=== PATIENT | female | born 2000 | race Caucasian/White ===

== ENCOUNTER → 2020-02-13 17:45 | Outpatient (CLI) | payer SELFPAY ==
[2020-02-13 08:03] VITALS: BMI 25.7
== END ==
PROVIDERS: Referring Provider Physician Assistant; Visit Provider Physician Assistant
DX: Z20.828 Contact with and (suspected) exposure to other viral communicable diseases (principal)
CPT/HCPCS: 87635; C9803; U0003

== ENCOUNTER 2020-06-25 16:33 | Emergency (ER) | payer OTHER, SELFPAY ==
[2020-02-13 08:03] VITALS: BMI 25.7
[2020-06-25 16:34] VITALS: BP 121/91; PULSE 84; RESP 16; TEMP 36.1; O2SAT 100; BMI 24.1
--- NOTE | 2020-06-25 16:51 | ED.DCSUM_ITS ---
- ER Visit Summary Date of Service: 06/25/20 Chief Complaint: [Headache] History of Present Illness: The patient is a 20 F [presents to the emergency room with complaint of a headache that started this morning and came on gradually. Patient currently rates it as a 10 out of 10. She describes the entire head hurting and throbbing. Patient complains of nausea as well as photophobia. The headache is very typical of her migraines. She denies any falls or head injuries. She denies recent illness. She denies COVID-19 exposures. No family history of brain tumors or aneurysms.] Physical Examination: [HEENT-PERRLA, EOMI. Cranial nerves II through XII grossly intact. TMs clear. Mucous membranes moist. No adenopathy. Cardiovascular-regular rate and rhythm without murmur or ectopy Lungs-clear to auscultation, chest wall stable without crepitus or subcu emphysema Abdomen-normoactive bowel sounds, soft, nontender, no rebound or rigidity, no peritoneal signs. Neuro yjun-aaztwp-twpc and heel justice testing within normal limits, negative Romberg, negative for drift, fundi benign Extremities-intact ?4, normal range of motion, normal pulses, atraumatic] Test Results: [None indicated] Emergency Department Course and Treatment: [IV line established. Patient given a liter normal same fluid bolus. Patient given Reglan, Benadryl, and Toradol, and her headache mostly resolved.] Treatment Plan: [Patient advised to follow-up with primary care physician environmental conservation officer for no doc. Patient advised to return if worsening headache, difficulty with balance or speech, or condition should worsen anyway.] Disposition: [Discharged home in stable condition] Impression: [Migrainous cephalgia] This note was generated with WebLayersation software. It may contain incorrect words, spelling, and punctuation that were not noted in review of the chart prior to signing ED Disposition - Plan for ED Patient: Referrals: Care Physician,No Primary [Primary Care Provider] -
[2020-06-25] MEDS: 0.9% Normal Saline 1,000 ML 1000 ML IV (17:26)
[2020-06-25] MEDS: Ketorolac 30 MG/ML Syringe IV (17:26)
[2020-06-25] MEDS: Metoclopramide 10 MG/2 ML Vial IV (17:26)
[2020-06-25] MEDS: DiphenhydrAMINE 50 MG/ML Syringe 25 MG IV (17:26)
--- NOTE | 2020-06-25 18:09 | ED.DEP ---
ED Disposition - Plan for ED Patient: Instructions: ED, Migraine (Classical) Referrals: Care Physician,No Primary [Primary Care Provider] - Juan Manuel Garvin III, MD [STAFF PHYSICIAN] - 3-5 Days
[2020-06-25 18:39] VITALS: BP 101/69; PULSE 60; RESP 14
== END 2020-06-25 18:40 | disposition home or self-care (01) ==
LOC: ED 17:32
PROVIDERS: Emergency Provider Emergency Medicine
DX: R51.9 Headache, unspecified (principal)
CPT/HCPCS: 96374; 96375; 99283; J7030

== ENCOUNTER → 2022-03-11 | Outpatient (CLI) | payer MEDICAID, SELFPAY ==
[2022-03-11 12:09] LABS: Absolute Lymphocyte Count 1.32 X10^3/uL (0.83-4.51); Basophil# 0.02 X10^3/uL; Basophil% 0.2 % (0-1); Eosinophil# 0.13 X10^3/uL; Eosinophils% 1.4 % (0-5); Hematocrit 38.1 % (37-47); Hemoglobin 13.4 g/dL (12.0-15.0); Lymphocyte # 1.32 X10^3/ul (0.83-4.51); Lymphocyte % 14.2 % (19-41); Mean Corp Hgb Conc 35.2 g/dL (32-36); Mean Corpuscular Hgb 32.2 pg (27.0-32.0); Mean Corpuscular Volume 91.6 fL (81-99); Mean Platelet Vol. 10.7 fl (6.2-12.0); Monocyte% 8.6 % (0-10); NRBC Flagged by Analyzer 0 % (0-5); Neutrophil # 7.03 X10^3/uL (2.7-7.7); Neutrophil % 75.4 % (47-70); Platelet Count 334 K/mm3 (150-450); RBC Distribution Width CV 12.2 % (11.6-14.6); RBC Distribution Width SD 40.9 fl (35.1-43.9); Red Blood Count 4.16 M/mm3 (4.2-5.4); White Blood Count 9.3 K/mm3 (4.4-11.0)
[2022-03-11 12:47] LABS: NATERA MAILED SPECIMEN
[2022-03-11 13:23] LABS: HIV - WCH Non-Reactive (Nonreactive); Hepatitis B Surface Antigen Non-Reactive (Nonreactive); Hepatitis C Antibody Non-Reactive (Nonreactive); Rubella IgG Reactive (Nonreactive); Syphilis Antibodies Non-reactive
[2022-03-11 14:46] LABS: Amphetamine Urine VISTA NEGATIVE (<1000 ng/mL); Barbiturate Urine VISTA NEGATIVE (< 200 ng/mL); Benzodiazepine Urine VISTA NEGATIVE (< 200 ng/mL); Cocaine Urine VISTA NEGATIVE (< 300 ng/mL); Ecstacy Urine VISTA NEGATIVE (< 500 ng/mL); Methadone Urine VISTA NEGATIVE (< 300 ng/mL); PCP Urine VISTA NEGATIVE (< 25 ng/mL); THC Urine VISTA NEGATIVE (< 50 ng/mL); Vista UDS pH Range 5
[2022-03-15 00:07] LABS: Chlamydia By Nucleic Acid AMP Negative (Negative)
[2022-03-15 14:21] LABS: Gonococcus By Nucleic Acid AMP Negative (Negative)
[2022-03-23 08:29] LABS: HPV APTIMA, High Risk Positive (Negative); HPV Reflexed? YES, CHARGE PATIENT
== END | disposition home or self-care (01) ==
PROVIDERS: Referring Provider Obstetrics & Gynecology; Visit Provider Obstetrics & Gynecology
DX: O09.90 Supervision of high risk pregnancy, unspecified, unspecified trimester (principal); Z3A.00 Weeks of gestation of pregnancy not specified
CPT/HCPCS: 36415; 80307; 85025; 86703; 86762; 86780; 86803; 86850; 86900; 86901; 87086; 87088; 87340; 87491; 87591; 87624; 88175; G0145

== ENCOUNTER → 2022-06-22 | Outpatient (CLI) | payer MEDICAID, SELFPAY ==
[2022-06-22 11:02] LABS: Absolute Lymphocyte Count 1.11 X10^3/uL (0.83-4.51); Absolute Neutrophil Count 7.4 X10^3/uL (2.0-7.7); Basophil# 0.02 X10^3/uL; Basophil% 0.2 % (0-1); Eosinophil# 0.11 X10^3/uL; Eosinophils% 1.2 % (0-5); Hemoglobin 12.5 g/dL (12.0-15.0); Lymphocyte # 1.11 X10^3/ul (0.83-4.51); Lymphocyte % 11.8 % (19-41); Mean Corp Hgb Conc 32.9 g/dL (32-36); Mean Corpuscular Hgb 31.5 pg (27.0-32.0); Mean Corpuscular Volume 95.7 fL (81-99); Mean Platelet Vol. 10.5 fl (6.2-12.0); Monocyte% 7.5 % (0-10); NRBC Flagged by Analyzer 0 % (0-5); Neutrophil # 7.39 X10^3/uL (2.7-7.7); Neutrophil % 78.7 % (47-70); Platelet Count 274 K/mm3 (150-450); RBC Distribution Width CV 12.4 % (11.6-14.6); RBC Distribution Width SD 43.9 fl (35.1-43.9); Red Blood Count 3.97 M/mm3 (4.2-5.4); White Blood Count 9.4 K/mm3 (4.4-11.0)
[2022-06-22 11:27] LABS: Glucose Challenge Gest 1H 50g 115 mg/dL (70-140)
[2022-06-22 11:56] LABS: HIV - WCH Non-Reactive (Nonreactive); Syphilis Antibodies Non-reactive
== END | disposition home or self-care (01) ==
LOC: LAB 10:37
PROVIDERS: Visit Provider Obstetrics & Gynecology
DX: O09.90 Supervision of high risk pregnancy, unspecified, unspecified trimester (principal); Z3A.00 Weeks of gestation of pregnancy not specified
CPT/HCPCS: 36415; 82950; 85025; 86703; 86780

== ENCOUNTER 2022-07-01 20:31 | Outpatient (CLI) | payer MEDICAID, SELFPAY ==
[2022-07-01 20:37] VITALS: BMI 29.2
[2022-07-01 20:44] VITALS: TEMP 36.7
[2022-07-01 20:46] VITALS: BP 119/84; PULSE 90
[2022-07-01 20:51] LABS: Color, Urine Yellow (Yellow); Glucose, Dipstick Normal (Normal); Ketone-Dipstick Negative (Negative); Leukocyte Esterase-Dipstick 500 /ul (Negative); Nitrite-Dipstick Negative (Negative); Occult Blood-Urine Negative /ul (Negative); Protein-Dipstick Negative (Negative); Specific Gravity, Urine 1.005 (1.002-1.030); Urine Bilirubin Dipstick Negative (Negative); Urine Clarity Clear (Clear); Urine Urobilinogen Normal (Normal)
--- NOTE | 2022-07-03 10:48 | OB.TRI.PN_ITS ---
Progress Notes Date of Service: 07/01/22 Progress Note: Patient presents for triage evaluation secondary to threatened labor FHT: 140 Moderate variability reactive no decelerations category I tracing [place] [facility]: irregular Contractions Assessment and plan: no cervicla diltaion threatened labor Reactive NST, reassuring maternal and status patient discharged to home to follow-up as scheduled. See problem list details for additional plan information. Laboratory Studies: Laboratory Tests 07/01/22 Range/Units 20:40 Urine Color Yellow (Yellow) Urine Clarity Clear (Clear) Urine pH 7.0 (5.0 - 8.0) Ur Specific [employer] 1.005 (1.002-1.030) Urine Protein Negative (Negative) mg/dl Urine Glucose (UA) Normal (Normal) mg/dl Urine Ketones Negative (Negative) mg/dl Urine Occult Blood Negative (Negative) /ul Urine Nitrite Negative (Negative) Urine Bilirubin Negative (Negative) mg/dL Urine Urobilinogen Normal (Normal) mg/dl Ur Leukocyte Esterase 500 H (Negative) /ul Charges/Coding Procedures Urinary/Genital 52xxx-59xxx: 93308-36 non-stress test Interp
== END 2022-07-01 21:53 | disposition home or self-care (01) ==
LOC: WPOUT 20:36 → WP 20:37
PROVIDERS: Visit Provider Obstetrics & Gynecology
DX: O47.9 False labor, unspecified (principal); O36.8390 Maternal care for abnormalities of the fetal heart rate or rhythm, unspecified trimester, not applicable or unspecified; Z3A.00 Weeks of gestation of pregnancy not specified
CPT/HCPCS: 59025; 59050; 81002; 87086; 87088; 99221; G0378

== ENCOUNTER 2022-08-16 18:20 | Outpatient (CLI) | payer MEDICAID, SELFPAY ==
[2022-08-16 18:36] VITALS: BP 116/72; PULSE 102; PULSE 99; TEMP 36.6; O2SAT 100
[2022-08-16 18:42] VITALS: BMI 32.8
--- NOTE | 2022-08-16 18:50 | OB.TRI.HP_ITS ---
HPI - General HPI Narrative GRANT ARMSTRONG, is a 22 F who presents at 32.6 with decreased FM. no ctx, lof, or vb. presents for monitoring. Maternal Data Information GEORGI Calculator Estimated Delivery Date Method Current WG Current Estimate 10/05/22 Ultrasound #1 32w 6d Other Estimates 10/18/22 LMP (Certain) 31w 0d PFSH PFSH Medical History Back pain Contact with and (suspected) exposure to other viral communicable diseases Fibromyalgia Severe headache Sinusitis Home Medications ferrous sulfate 140 mg (45 mg iron) tablet,extended release 140 mg PO DAILY 03/04/22 [History Last Taken Unknown] folic acid 800 mcg tablet 0.8 mg PO DAILY 03/04/22 [History Last Taken Unknown] sertraline 25 mg tablet (Zoloft) 25 mg PO DAILY #30 tabs 04/30/22 [Rx Last Taken Unknown] Allergy/AdvReac Type Severity Reaction Status Date / Time No Known Allergies Allergy Verified 08/12/22 13:29 Family History Grandmother Breast cancer Paternal Other Migraines Social History adopted: No household members: significant other housing: house current occupational status: employed 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 current occupational exposures/hazards: No pets and animals: Yes pets and animals: dog(s) history of recent travel: No sexually active: Yes Smoking Status: Never smoker alcohol intake: former details: occasional substance use type: does not use well-balanced diet: about half the time caffeine: Yes Type: carbonated beverages Number of servings: 1 eating out: 1-3 times/week during the past year weight has: remained stable what type of physical activity do you participate in: walking frequency: 1-2 times per week duration: 15-30 minutes/day eveline/sikh: Druze seatbelt use: always do you feel safe at home: Yes additional social history: Boyfriend- Killian - [employer] History 1 Elective abortions Hx Para 0 Spontaneous abortions Hx # Term Pregnancies Ectopic pregnancies Hx # Pregnancies Multiple births # of living children Visit Details Expected Delivery Route/Plan Labor Preferences- CB/BF classes: [] labor support person: [] labor intervention preferences: [] pain management options preferred: [] cut cord/dad catch: [] : [] PP control planned: [] discussed possible routes of delivery and associated risks: [] special requests: [] Plans Covid status: [] Flu vaccine: [] Tdap vaccine: [] Rhogam: [] LARC form signed: [] Problem list reviewed and updated with the most current plan of care details and appropriate orders placed. Relevant counseling for the gestational age provided. Continue routine care and follow up unless otherwise noted in visit notes/problem list details OB Flowsheet Initial Weight: Not Recorded Date -?-?-?-?-?-?-?-?--?-?-?-?- EGA Weight BP Urine Prot -?-?-?-?-?-?-?-?-?-?-?-?- Glucose FHR FuHt Pres Dilation -?-?-?-?-?-?-?-?-?-?-?-?- Effaced St Visit Note 03/11/22 -?-?-?-?-?-?-?-?-?-?-?-?- 10w 2d 135 lb 101/69 -?-?-?-?-?-?-?-?-?-?-?-?- 169 -?-?-?-?-?-?-?-?-?-?-?-?- JV- new georgi give n, CRL off by 2 weeks 03/29/22 -?-?-?-?-?-?-?-?-?-?-?-?- 12w 6d 137 lb 114/74 Negative -?-?-?-?-?-?-?-?-?-?-?-?- Negative 157 -?-?-?-?-?-?-?-?-?-?-?-?- SM- no vb lof cr maping doing well SM- no vb lof cramping doing well 04/28/22 -?-?-?-?-?-?-?-?-?-?-?-?- 17w 1d 141 lb 112/78 Negative -?-?-?-?-?-?-?-?-?-?-?-?- Negative 153 -?-?-?-?-?-?-?-?-?-?-?-?- -No VB, ranjitkristina ng. Doing well 05/27/22 -?-?-?-?-?-?-?-?-?-?-?-?- 21w 2d 144 lb 122/78 Negative -?-?-?-?-?-?-?-?-?-?-?-?- Negative 155 -?-?-?-?-?-?-?-?-?-?-?-?- JV- pt is doing well on 25 mg of zoloft but wonders if more may be better. She will double up on zoloft this week and call if wants the 50's. recommend no intercourse until low lying placenta is resolved. 06/22/22 -?-?-?-?-?-?-?-?-?-?-?-?- 25w 0d 151 lb 6 oz 122/83 Nega tive -?-?-?-?-?-?-?-?-?-?-?-?- Negative 140 -?-?-?-?-?-?-?-?-?-?-?-?- JV- gct pending today. tried 50 mg of zoloft and did not feel any better or worse so went back to 25 mg. recommend sticking with the 50 s and possibly increasing to 100 or 75 a s needed. 07/06/22 -?-?-?-?-?-?-?-?-?-?-?-?- 27w 0d 153 lb 9 oz 99/66 Nega tive -?-?-?-?-?-?-?-?-?-?-?-?- Negative 148 0 -?-?-?-?-?-?-?-?-?-?-?-?- -follow up fro m WP visit 2 nights ago with CTX. No cervical change. No reg CTX today. Reviewed PTL signs. 07/16/22 -?-?-?-?-?-?-?-?-?-?-?-?- 28w 3d 160 lb 6 oz 120/81 Nega tive -?-?-?-?-?-?-?-?-?-?-?-?- Negative 150 28 -?-?-?-?-?-?-?-?-?-?-?-?- JV- no lof, vagi nal bleeding, or dec fm. PTL precautions again discussed. 07/30/22 -?-?-?-?-?-?-?-?-?-?-?-?- 30w 3d 164 lb 4 oz 108/76 Nega tive -?-?-?-?-?-?-?-?-?-?-?-?- Negative 155 30 -?-?-?-?-?-?-?-?-?-?-?-?- JV- no lof, vagi nal bleeding, or dec fm. larc signed. pt will think about tdap. has ba y shower this , 08/12/22 -?-?-?-?-?-?-?-?-?-?-?-?- 32w 2d 167 lb 8 oz 109/74 Nega tive -?-?-?-?-?-?-?-?-?-?-?-?- Negative 150 32 -?-?-?-?-?-?-?-?-?-?-?-?- LC- no vb/ctx/lo f. good fm. NST FHR Rate Baby A Baseline: 130 Variability:: Moderate Accelerations:: 15 x 15 Decelerations:: None NST Reactive:: Yes FHR Category:: Category I Uterine Activity:: none Assessment & Plan (1) Decreased movement: COMMENT: 08/16/2022, reactive NST on WP PLAN: Patient presents for triage evaluation secondary to decrease movement at 32.6 FHT: Moderate variability reactive no decelerations category I tracing [place]: no Contractions Assessment and plan: Reactive NST, reassuring maternal and status patient discharged to home to follow-up in office at next appointment. See problem list details for additional plan information. Charges/Coding Procedures Urinary/Genital 52xxx-59xxx: 06296-67 non-stress test Interp
== END 2022-08-16 19:26 | disposition home or self-care (01) ==
LOC: WPOUT 18:27 → WP 18:28
PROVIDERS: Referring Provider Registered Nurse; Visit Provider Registered Nurse
DX: O36.8130 Decreased fetal movements, third trimester, not applicable or unspecified (principal); Z3A.32 32 weeks gestation of pregnancy
CPT/HCPCS: 59025; 59050; 99221; G0378

== ENCOUNTER → 2022-09-10 | Outpatient (CLI) | payer MEDICAID, SELFPAY | END | disposition home or self-care (01) | LOC: LABSPEC 15:23 | PROVIDERS: Referring Provider Obstetrics & Gynecology; Visit Provider Obstetrics & Gynecology | DX: O09.90 Supervision of high risk pregnancy, unspecified, unspecified trimester (principal); Z3A.00 Weeks of gestation of pregnancy not specified | CPT/HCPCS: 87081 ==

== ENCOUNTER 2022-09-14 11:50 | Outpatient (CLI) | payer MEDICAID, SELFPAY ==
[2022-09-14 12:17] VITALS: BMI 35.7
[2022-09-14 12:21] VITALS: TEMP 36.8
[2022-09-14 12:22] VITALS: BP 119/83; PULSE 98
[2022-09-14 12:38] VITALS: BP 116/81; PULSE 106
[2022-09-14 12:46] LABS: Hematocrit 36.1 % (37-47); Hemoglobin 12.5 g/dL (12.0-15.0); Mean Corp Hgb Conc 34.6 g/dL (32-36); Mean Corpuscular Hgb 32.4 pg (27.0-32.0); Mean Corpuscular Volume 93.5 fL (81-99); Mean Platelet Vol. 11.9 fl (6.2-12.0); Platelet Count 190 K/mm3 (150-450); RBC Distribution Width CV 12.5 % (11.6-14.6); RBC Distribution Width SD 42.6 fl (35.1-43.9); Red Blood Count 3.86 M/mm3 (4.2-5.4); White Blood Count 9.7 K/mm3 (4.4-11.0)
[2022-09-14 12:53] VITALS: BP 120/85; PULSE 100
[2022-09-14 13:00] LABS: AST(SGOT) 12 U/L (15-37); Alanine Aminotransfer ALT/SGPT 21 U/L (13-56); Creatinine, Serum 0.43 mg/dL (0.55-1.02); EST Glomerular Filtration Rate 193 mL/min (>60); Est Glom Filt Rate - Afr Amer 233 mL/min (>60); Estimated Creatinine Clearance 146.16 ml/min
[2022-09-14 13:04] LABS: Protein, Urine (Random) 20.9 mg/dL (<11.9); Protein:Creat Ratio 199 mg/g CRE (0-200)
--- NOTE | 2022-09-14 13:14 | OB.TRI.PN_ITS ---
Progress Notes Date of Service: 09/14/22 Progress Note: Patient presents for triage evaluation secondary to elevated blood pressure FHT: 140 Moderate variability reactive no decelerations category I tracing [place]: no regular Contractions Assessment and plan: elevated blood pressure- repeat bps all WNL, labs WNL negative proteinuria. review precautions, fu in office as scheudled Reactive NST, reassuring maternal and status patient discharged to home to follow- up as scheduled. See problem list details for additional plan information. Laboratory Studies: Laboratory Tests 09/14/22 09/14/22 09/14/22 Range/Units 12:35 12:35 12:35 WBC 9.7 (4.4-11.0) K/mm3 RBC 3.86 L (4.2-5.4) M/mm3 Hgb 12.5 (12.0-15.0) g/dL Hct 36.1 L (37-47) % MCV 93.5 (81-99) fL MCH 32.4 H (27.0-32.0) pg MCHC 34.6 (32-36) g/dL RDW Std Deviation 42.6 (35.1-43.9) fl RDW Coeff of Richard 12.5 (11.6-14.6) % Plt Count 190 (150-450) K/mm3 MPV 11.9 (6.2-12.0) fl Creatinine 0.43 L (0.55-1.02) mg/dL Estim Creat Clear Calc 146.16 ml/min Est GFR (MDRD) Af Amer 233 (>60) mL/min Est GFR (MDRD) Non-Af 193 (>60) mL/min Uric Acid 6.0 (2.6-6.0) mg/dL AST 12 L (15-37) U/L ALT 21 (13-56) U/L U Random Total Protein 20.9 H (<11.9) mg/dL Urine Creatinine 105.00 (NO RANGE EST.) mg/dL Protein/Creatinin Ratio 199 (0-200) mg/g CRE Charges/Coding Procedures Urinary/Genital 52xxx-59xxx: 01079-27 non-stress test Interp
== END 2022-09-14 13:24 | disposition home or self-care (01) ==
LOC: WPOUT 11:55 → WP 11:56
PROVIDERS: Referring Provider Obstetrics & Gynecology; Visit Provider Obstetrics & Gynecology
DX: O99.891 Other specified diseases and conditions complicating pregnancy (principal); R03.0 Elevated blood-pressure reading, without diagnosis of hypertension; Z79.899 Other long term (current) drug therapy; Z3A.00 Weeks of gestation of pregnancy not specified
CPT/HCPCS: 36415; 59025; 59050; 82565; 82570; 84156; 84450; 84460; 84550; 85027; 86850; 86900; 86901; 99221; G0378

== ENCOUNTER 2022-09-15 15:13 | Outpatient (CLI) | payer MEDICAID, SELFPAY ==
[2022-09-15 15:20] VITALS: BP 122/72; PULSE 112
[2022-09-15 15:24] VITALS: BMI 36.4
[2022-09-15 15:33] VITALS: BP 119/58; PULSE 101
[2022-09-15 15:34] VITALS: BP 116/60; PULSE 100
[2022-09-15 15:43] VITALS: BP 124/74; PULSE 109
[2022-09-15 15:53] VITALS: BP 113/71; PULSE 101
[2022-09-15 15:56] LABS: Mucous, Urine 0 SEEN /hpf (<or=2+); Red Blood Cells-Urine 0 SEEN /hpf (0-5)
[2022-09-15 15:59] VITALS: TEMP 37.6
[2022-09-15 16:06] LABS: Hematocrit 36.6 % (37-47); Hemoglobin 12.4 g/dL (12.0-15.0); Mean Corp Hgb Conc 33.9 g/dL (32-36); Mean Corpuscular Hgb 32.4 pg (27.0-32.0); Mean Corpuscular Volume 95.6 fL (81-99); Mean Platelet Vol. 12.4 fl (6.2-12.0); Platelet Count 194 K/mm3 (150-450); RBC Distribution Width CV 12.4 % (11.6-14.6); RBC Distribution Width SD 42.9 fl (35.1-43.9); Red Blood Count 3.83 M/mm3 (4.2-5.4); White Blood Count 10.7 K/mm3 (4.4-11.0)
[2022-09-15 16:08] LABS: Color, Urine Yellow (Yellow); Glucose, Dipstick Normal (Normal); Ketone-Dipstick Negative (Negative); Leukocyte Esterase-Dipstick 500 /ul (Negative); Nitrite-Dipstick Negative (Negative); Occult Blood-Urine Negative /ul (Negative); Protein-Dipstick 15 mg/dl (Negative); Specific Gravity, Urine 1.015 (1.002-1.030); Urine Bilirubin Dipstick Negative (Negative); Urine Clarity Sl. Cloudy (Clear); Urine Urobilinogen Normal (Normal)
--- NOTE | 2022-09-15 16:10 | OB.TRI.HP_ITS ---
HPI - General General Date of Admission: 09/15/22 Date of Service: 09/15/22 HPI Narrative GRANT ARMSTRONG, is a 22 F who presents with right sided flank pain. Maternal Data Information GEORGI Calculator Estimated Delivery Date Method Current WG Current Estimate 10/05/22 Ultrasound #1 37w 1d Other Estimates 10/18/22 LMP (Certain) 35w 2d Final GEORGI: 10/05/22 Final GEORGI Source: US >20 weeks Gestational age: 37 weeks 1 day PFSH PFSH Medical History Back pain Contact with and (suspected) exposure to other viral communicable diseases Fibromyalgia Severe headache Sinusitis Home Medications ferrous sulfate 140 mg (45 mg iron) tablet,extended release 140 mg PO DAILY 03/04/22 [History Last Taken 1 Day Ago ~09/14/22] folic acid 800 mcg tablet 0.8 mg PO DAILY 03/04/22 [History Last Taken 1 Day Ago ~09/14/22] sertraline 25 mg tablet (Zoloft) 25 mg PO DAILY #30 tabs 04/30/22 [Rx Last Taken 1 Day Ago ~09/14/22] Allergy/AdvReac Type Severity Reaction Status Date / Time No Known Allergies Allergy Verified 09/14/22 12:18 Family History Grandmother Breast cancer Paternal Other Migraines Social History adopted: No household members: significant other housing: house current occupational status: employed 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 current occupational exposures/hazards: No pets and animals: Yes pets and animals: dog(s) history of recent travel: No sexually active: Yes Smoking Status: Never smoker alcohol intake: former details: occasional substance use type: does not use well-balanced diet: about half the time caffeine: Yes Type: carbonated beverages Number of servings: 1 eating out: 1-3 times/week during the past year weight has: remained stable what type of physical activity do you participate in: walking frequency: 1-2 times per week duration: 15-30 minutes/day eveline/shinto: Islam seatbelt use: always do you feel safe at home: Yes additional social history: Boyfriend- Killian - [employer] History 1 Elective abortions Hx Para 0 Spontaneous abortions Hx # Term Pregnancies Ectopic pregnancies Hx # Pregnancies Multiple births # of living children Visit Details Expected Delivery Route/Plan Labor Preferences- CB/BF classes: [] labor support person: [] labor intervention preferences: [] pain management options preferred: [] cut cord/dad catch: [] : [] PP control planned: [] discussed possible routes of delivery and associated risks: [] special requests: [] Plans Covid status: [] Flu vaccine: [] Tdap vaccine: 08/31/2022 Rhogam: [] LARC form signed: [] Problem list reviewed and updated with the most current plan of care details and appropriate orders placed. Relevant counseling for the gestational age provided. Continue routine care and follow up unless otherwise noted in visit notes/problem list details OB Flowsheet Initial Weight: Not Recorded Date -?-?-?-?-?-?-?-?-?-?-?-?- EGA Weight BP Urine Prot -?-?-?-?-?-?-?-?-?-?-?-?- Glucose FHR FuHt Pres Dilation -?-?-?-?-?-?-?-?-?-?-?-?- Effaced St Visit Note 03/11/22 -?-?-?-?-?-?-?-?-?-?-?-?- 10w 2d 135 lb 101/69 -?-?-?-?-?-?-?-?-?-?-?-?- 169 -?-?-?-?-?-?-?-?-?-?-?-?- JV- new georgi give n, CRL off by 2 weeks 03/29/22 -?-?-?-?-?-?-?-?-?-?-?-?- 12w 6d 137 lb 114/74 Negative -?-?-?-?-?-?-?-?-?-?-?-?- Negative 157 -?-?-?-?-?-?-?-?-?-?-?-?- SM- no vb lof cr maping doing well SM- no vb lof cramping doing well 04/28/22 -?-?-?-?-?-?-?-?-?-?-?-?- 17w 1d 141 lb 112/78 Negative -?-?-?-?-?-?-?-?-?-?-?-?- Negative 153 -?-?-?-?-?-?-?-?-?-?-?-?- -No VB, kailash ng. Doing well 05/27/22 -?-?-?-?-?-?-?-?-?-?-?-?- 21w 2d 144 lb 122/78 Negative -?-?-?-?-?-?-?-?-?-?-?-?- Negative 155 -?-?-?-?-?-?-?-?-?-?-?-?- JV- pt is doing well on 25 mg of zoloft but wonders if more may be better. She will double up on zoloft this week and call if wants the 50's. recommend no intercourse until low lying placenta is resolved. 06/22/22 -?-?-?-?-?-?-?-?-?-?-?-?- 25w 0d 151 lb 6 oz 122/83 Nega tive -?-?-?-?-?-?-?-?-?-?-?-?- Negative 140 -?-?-?-?-?-?-?-?-?-?-?-?- JV- gct pending today. tried 50 mg of zoloft and did not feel any better or worse so went back to 25 mg. recommend sticking with the 50 s and possibly increasing to 100 or 75 a s needed. 07/06/22 -?-?-?-?-?-?-?-?-?-?-?-?- 27w 0d 153 lb 9 oz 99/66 Nega tive -?-?-?-?-?-?-?-?-?-?-?-?- Negative 148 0 -?-?-?-?-?-?-?-?-?-?-?-?- -follow up fro m visit 2 nights ago with CTX. No cervical change. No reg CTX today. Reviewed PTL signs. 07/16/22 -?-?-?-?-?-?-?-?-?-?-?-?- 28w 3d 160 lb 6 oz 120/81 Nega tive -?-?-?-?-?-?-?-?-?-?-?-?- Negative 150 28 -?-?-?-?-?-?-?-?-?-?-?-?- JV- no lof, vagi nal bleeding, or dec fm. PTL precautions again discussed. 07/30/22 -?-?-?-?-?-?-?-?-?-?-?-?- 30w 3d 164 lb 4 oz 108/76 Nega tive -?-?-?-?-?-?-?-?-?-?-?-?- Negative 155 30 -?-?-?-?-?-?-?-?-?-?-?-?- JV- no lof, vagi nal bleeding, or dec fm. larc signed. pt will think about tdap. has ba y shower this weekend, 08/12/22 -?-?-?-?-?-?-?-?-?-?-?-?- 32w 2d 167 lb 8 oz 109/74 Nega tive -?-?-?-?-?-?-?-?-?-?-?-?- Negative 150 32 -?-?-?-?-?-?-?-?-?-?-?-?- LC- no vb/ctx/lo f. good fm. 08/25/22 -?-?-?-?-?-?-?-?-?-?-?-?- 34w 1d 173 lb 4 oz 116/81 Nega tive -?-?-?-?-?-?-?-?-?-?-?-?- Negative 134 34 Cephalic 0 -?-?-?-?-?-?-?-?-?-?-?-?- 0 -2 JV-pt comp lains of pressure and round ligament pain. PTL precautions discussed. 09/10/22 -?-?-?-?-?-?-?-?-?-?-?-?- 36w 3d 183 lb 131/84 -?-?-?-?-?-?-?-?-?-?-?-?- 135 37 Cephalic 0.5 -?-?-?-?-?-?-?-?-?-?-?-?- 0 -3 SM- no vb lof good fm n oregular ctx 09/14/22 -?-?-?-?-?-?-?-?-?-?-?-?- 37w 0d 184 lb 6 oz 132/94 Trac e -?-?-?-?-?-?-?-?-?-?-?-?- Negative 142 37 Cephalic 0 .5 -?-?-?-?-?-?-?-?-?-?-?-?- -3 MH-No VB , LOF. Good FM. Headache X 2 days. No vision changes. Edema hands/feet. To for Pre E evaluation 09/15/22 -?-?-?-?-?-?-?-?-?-?-?-?- 37w 1d 186 lb 8.177 oz 122/ 72 119/58 116/60 124/74 113/71 15 mg/dl (Negative) H -?-?-?-?-?-?-?-?-?-?-?-?- -?-?-?-?-?-?-?-?-?-?-?-?- ROS Constitutional Constitutional: Reports systems reviewed and no addt'l complaints, except as documented Cardiovascular Cardiovascular: Reports systems reviewed and no addt'l complaints, except as documented Respiratory/Chest Respiratory/Chest: Reports systems reviewed and no addt'l complaints, except as documented Gastrointestinal Gastrointestinal: Reports systems reviewed and no addt'l complaints, except as documented Genitourinary Genitourinary: Reports contractions Details: present (irregular), movement and flank pain; Denies burning urination, difficulty urinating, dysuria, urinary frequency, urinary hesitancy, urinary incontinence or urinary urgency Psychiatric Psychiatric: Reports systems reviewed and no addt'l complaints, except as documented Physical Exam Const alert, oriented x3 and no apparent distress Neck full ROM Resp normal respiratory effort, no retractions and no use of accessory muscles GI soft to palpation and non-tender Inspection: gravid Bladder / Kidney Exam: bladder abnormal to palpation tender and CVA tenderness right and diffuse Uterus Palpation: Negative for uterus tender Psych mental status grossly normal NST FHR Rate Baby A Baseline: 135 Variability:: Moderate Accelerations:: 15 x 15 Decelerations:: None NST Reactive:: Yes FHR Category:: Category I Uterine Activity:: irregular Assessment & Plan (1) Flank pain in patient: PLAN: UA and culture R/O pyelonephritis (2) Proteinuria affecting in third trimester: PLAN: Charges/Coding Multi Select Codes Urinary/Genital Urinary/Genital CPT Codes: 35890-28 non-stress test Interp and No Charge
[2022-09-15 16:23] LABS: AST(SGOT) 15 U/L (15-37); Alanine Aminotransfer ALT/SGPT 22 U/L (13-56); Creatinine, Serum 0.58 mg/dL (0.55-1.02); EST Glomerular Filtration Rate 136 mL/min (>60); Est Glom Filt Rate - Afr Amer 164 mL/min (>60); Estimated Creatinine Clearance 108.36 ml/min; Uric Acid 6.3 mg/dL (2.6-6.0)
[2022-09-15 16:24] LABS: Bacteria 1+ /hpf (None Seen); Squamous Epithelial Cells - UA 10-25 SEEN /hpf (5-10); White Blood Cells 10-25 SEEN /hpf (0-5)
[2022-09-15 16:25] LABS: Protein, Urine (Random) 17.2 mg/dL (<11.9); Protein:Creat Ratio 245 mg/g CRE (0-200)
--- NOTE | 2022-09-15 16:33 | US_ITS ---
INDICATION: right flank pain EXAMINATION: Ultrasound US Kidney(s) complete (eg, kidneys and bladder) TECHNIQUE: [place] scale and color doppler images were obtained of the kidneys. COMPARISON: None. FINDINGS: RIGHT KIDNEY: 11.0 x 4.9 x 5.9 cm . No cortical thinning. There is no hydronephrosis. No shadowing calculus, focal lesion or perinephric collection. LEFT KIDNEY: 1.0 x 4.6 x 4.9 cm . No cortical thinning. There is no hydronephrosis. No shadowing calculus, focal lesion or perinephric collection. Normal color flow seen in the hilum of both kidneys. URINARY BLADDER: Very poorly visualized. Reported 8mm volume. No appreciable wall thickening or mass. Limited assessment of the pelvis. Intrauterine with cephalic presentation. US/Kidney and Bladder IMPRESSION: Normal bilateral kidneys with no hydronephrosis. Limited visualization of the urinary bladder and pelvis. No abnormality within limits of the exam. Electronically Signed: Manolo Uribe DO at 23:35 EDT ,
[2022-09-15] MEDS: Lactated Ringers 1,000 ML 999 ML IV (17:25)
[2022-09-15] MEDS: Ceftriaxone 1 GM/50 ML BAG IV (17:26)
== END 2022-09-15 19:00 | disposition home or self-care (01) ==
LOC: WPOUT 15:17 → WP 15:18
PROVIDERS: Referring Provider Advanced Practice Midwife; Visit Provider Advanced Practice Midwife
DX: O23.03 Infections of kidney in pregnancy, third trimester (principal); O99.891 Other specified diseases and conditions complicating pregnancy; R10.9 Unspecified abdominal pain; Z3A.35 35 weeks gestation of pregnancy
CPT/HCPCS: J7120; 36415; 59025; 59050; 76770; 81001; 82565; 82570; 84156; 84450; 84460; 84550; 85027; 87086; 87088; 99221; G0378

== ENCOUNTER → 2022-09-21 | Outpatient (CLI) | payer MEDICAID, SELFPAY ==
[2022-09-21 16:54] LABS: Protein, Urine (Random) 50.6 mg/dL (<11.9); Protein:Creat Ratio 185 mg/g CRE (0-200)
[2022-09-21 17:02] LABS: Absolute Neutrophil Count 9.5 X10^3/uL (2.0-7.7); Basophil# 0.02 X10^3/uL; Basophil% 0.2 % (0-1); Eosinophil# 0.08 X10^3/uL; Eosinophils% 0.7 % (0-5); Hematocrit 36.5 % (37-47); Hemoglobin 12.4 g/dL (12.0-15.0); Lymphocyte % 11.4 % (19-41); Mean Corpuscular Hgb 32.7 pg (27.0-32.0); Mean Corpuscular Volume 96.3 fL (81-99); Mean Platelet Vol. 12.6 fl (6.2-12.0); Monocyte% 9.8 % (0-10); NRBC Flagged by Analyzer 0 % (0-5); Neutrophil % 77.4 % (47-70); Platelet Count 199 K/mm3 (150-450); RBC Distribution Width CV 12.5 % (11.6-14.6); RBC Distribution Width SD 43.7 fl (35.1-43.9); Red Blood Count 3.79 M/mm3 (4.2-5.4); White Blood Count 12.3 K/mm3 (4.4-11.0)
[2022-09-21 17:26] LABS: ALB/GLOB Ratio 0.8 RATIO (0.9-2.4); AST(SGOT) 22 U/L (15-37); Alanine Aminotransfer ALT/SGPT 29 U/L (13-56); Albumin, Serum 2.8 g/dL (3.2-5.0); Alkaline Phosphatase 127 U/L (45-117); Anion Gap 5 (5-15); BUN 13 mg/dL (7-18); BUN/Creat Ratio 20.7 RATIO (10-20); Calcium,Total 9.1 mg/dL (8.5-10.1); Chloride 106 mmol/L (98-107); Creatinine, Serum 0.63 mg/dL (0.55-1.02); EST Glomerular Filtration Rate 124 mL/min (>60); Est Glom Filt Rate - Afr Amer 150 mL/min (>60); Globulin 3.6 g/dL (2.2-4.2); Glucose 93 mg/dL (74-106); Potassium 4.1 mmol/L (3.5-5.1); Protein, Total 6.4 g/dL (6.4-8.2); Sodium Level 134 mmol/L (136-145)
== END | disposition home or self-care (01) ==
LOC: LABSPEC 16:13
PROVIDERS: Referring Provider Nurse Practitioner Women's Health; Visit Provider Nurse Practitioner Women's Health
DX: Z34.90 Encounter for supervision of normal pregnancy, unspecified, unspecified trimester (principal)
CPT/HCPCS: 36415; 80053; 82570; 84156; 85025

== ENCOUNTER 2022-09-22 23:55 | Outpatient (CLI) | payer MEDICAID, SELFPAY ==
[2022-09-23 00:07] VITALS: BMI 37.8
[2022-09-23 00:13] VITALS: O2SAT 97
[2022-09-23 00:14] VITALS: BP 116/82; PULSE 84; TEMP 37.1
[2022-09-23] MEDS: Acetaminophen 500 MG Tablet 1000 MG PO (02:44)
--- NOTE | 2022-09-23 22:53 | OB.TRI.NOTE ---
HPI - General General Date of Admission: 09/22/22 HPI Narrative GRANT ARMSTRONG, is a 22 y/o # 38 weeks who presents to L&D with increasing contraction pain and frequency. Upon arrival the nurse reports that she is still 1.5 cm as she was in the office last week. Maternal Data Information GEORGI Calculator Estimated Delivery Date Method Current WG Current Estimate 10/05/22 Ultrasound #1 38w 3d Other Estimates 10/18/22 LMP (Certain) 36w 4d PFSH [facility] Medical History (Updated 09/24/22 @ 17:[address] Lynsey Ambrocio, DO) Back pain Contact with and (suspected) exposure to other viral communicable diseases Depression Fibromyalgia Severe headache Sinusitis Home Medications ferrous sulfate 140 mg (45 mg iron) tablet,extended release 140 mg PO DAILY 03/04/22 [History Last Taken 09/22/22 08:00] folic acid 800 mcg tablet 0.8 mg PO DAILY 03/04/22 [History Last Taken 09/22/22 08:00] cephalexin 500 mg capsule 500 mg PO Q6 uti 10 days #40 caps 09/15/22 [Rx Last Taken 09/22/22 20:45] sertraline 25 mg tablet (Zoloft) 25 mg PO DAILY #90 tabs 09/22/22 [Rx Last Taken 09/22/22 08:00] Allergy/AdvReac Type Severity Reaction Status Date / Time No Known Allergies Allergy Verified 09/23/22 00:33 Family History Grandmother Breast cancer Paternal Other Migraines Social History adopted: No household members: significant other housing: house current occupational status: employed 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 occupational exposures/hazards: No pets and animals: Yes pets and animals: dog(s) history of recent travel: No sexually active: Yes Smoking Status: Never smoker alcohol intake: former details: occasional substance use type: does not use well-balanced diet: about half the time caffeine: Yes Type: carbonated beverages Number of servings: 1 eating out: 1-3 times/week during the past year weight has: remained stable what type of physical activity do you participate in: walking frequency: 1-2 times per week duration: 15-30 minutes/day eveline/spiritism: Faith seatbelt use: always do you feel safe at home: Yes additional social history: Boyfriend- Killian - [employer] History 1 Elective abortions Hx Para 0 Spontaneous abortions Hx # Term Pregnancies Ectopic pregnancies Hx # Pregnancies Multiple births # of living children Visit Details Expected Delivery Route/Plan Labor Preferences- CB/BF classes: [] labor support person: [] labor intervention preferences: [] pain management options preferred: [] cut cord/dad catch: [] : [] PP control planned: [] discussed possible routes of delivery and associated risks: [] special requests: [] Plans Covid status: [] Flu vaccine: [] Tdap vaccine: 08/31/2022 Rhogam: [] LARC form signed: [] Problem list reviewed and updated with the most current plan of care details and appropriate orders placed. Relevant counseling for the gestational age provided. Continue routine care and follow up unless otherwise noted in visit notes/problem list details OB Flowsheet Initial Weight: Not Recorded Date <del>?</del> EGA Weight BP Urine Prot <del>?</del> Glucose FHR FuHt Pres Dilation <del>?</del> Effaced St Visit Note 03/11/22 <del>?</del> 10w 2d 135 lb 101/69 <del>?</del> 169 <del>?</del> JV- new georgi given, CRL off by 2 weeks 03/29/22 <del>?</del> 12w 6d 137 lb 114/74 Negative <del>?</del> Negative 157 <del>?</del> SM- no vb lof crmaping doing well SM- no vb lof cramping doing well 04/28/22 <del>?</del> 17w 1d 141 lb 112/78 Negative <del>?</del> Negative 153 <del>?</del> MH-No VB, cramping. Doing well 05/27/22 <del>?</del> 21w 2d 144 lb 122/78 Negative <del>?</del> Negative 155 <del>?</del> JV- pt is doing well on 25 mg of zoloft but wonders if more may be better. She will double up on zoloft this week and call if wants the 50's. recommend no intercourse until low lying placenta is resolved. 06/22/22 <del>?</del> 25w 0d 151 lb 6 oz 122/83 Negative <del>?</del> Negative 140 <del>?</del> JV- gct pending today. tried 50 mg of zoloft and did not feel any better or worse so went back to 25 mg. recommend sticking with the 50 s and possibly increasing to 100 or 75 as needed. 07/06/22 <del>?</del> 27w 0d 153 lb 9 oz 99/66 Negative <del>?</del> Negative 148 0 <del>?</del> -follow up from WP visit 2 nights ago with CTX. No cervical change. No reg CTX today. Reviewed PTL signs. 07/16/22 <del>?</del> 28w 3d 160 lb 6 oz 120/81 Negative <del>?</del> Negative 150 28 <del>?</del> JV- no lof, vaginal bleeding, or dec fm. PTL precautions again discussed. 07/30/22 <del>?</del> 30w 3d 164 lb 4 oz 108/76 Negative <del>?</del> Negative 155 30 <del>?</del> JV- no lof, vaginal bleeding, or dec fm. larc signed. pt will think about tdap. has ba y shower this weekend, 08/12/22 <del>?</del> 32w 2d 167 lb 8 oz 109/74 Negative <del>?</del> Negative 150 32 <del>?</del> LC- no vb/ctx/lof. good fm. 08/25/22 <del>?</del> 34w 1d 173 lb 4 oz 116/81 Negative <del>?</del> Negative 134 34 Cephalic 0 <del>?</del> 0 -2 JV-pt complains of pressure and round ligament pain. PTL precautions discussed. 09/10/22 <del>?</del> 36w 3d 183 lb 131/84 <del>?</del> 135 37 Cephalic 0.5 <del>?</del> 0 -3 SM- no vb lof good fm n oregular ctx 09/14/22 <del>?</del> 37w 0d 184 lb 6 oz 132/94 Trace <del>?</del> Negative 142 37 Cephalic 0.5 <del>?</del> -3 MH-No VB, LOF. Good FM. Headache X 2 days. No vision changes. Edema hands/feet. To for Pre E evaluation 09/21/22 <del>?</del> 38w 0d 190 lb 2 oz 118/83 1+ <del>?</del> Negative 130 38 Cephalic 1.5 <del>?</del> 60 -2 SM- 3+ edema taking antibiotics for uti no vb lof good fm no regular ctx membranes swept, check cbc cmp urine protein labs now ROS Constitutional Constitutional: Reports systems reviewed and no addt'l complaints, except as documented Gastrointestinal Gastrointestinal: Denies bloating, constipation, cramping, diarrhea, nausea or vomiting Genitourinary Genitourinary: Reports other Details: Denies vaginal odor, vaginal bleeding, or vaginal discharge ; Denies difficulty urinating or flank pain NST FHR Rate Baby A Baseline: 140 Variability:: Moderate Accelerations:: 15 x 15 Decelerations:: None NST Reactive:: Yes FHR Category:: Category I Assessment & Plan (1) False labor after 37 completed weeks of gestation: PLAN: no cervical change after 2.5 hrs. dc to home in stable condition with labor precautions Charges/Coding Multi Select Codes Urinary/Genital Urinary/Genital CPT Codes: 79979-49 non-stress test Interp
--- NOTE | 2022-09-23 22:53 | OB.TRI.HP_ITS ---
HPI - General General Date of Admission: 09/22/22 HPI Narrative GRANT ARMSTRONG, is a 22 y/o # 38 weeks who presents to L&D with increasing contraction pain and frequency. Upon arrival the nurse reports that she is still 1.5 cm as she was in the office last week. Maternal Data Information GEORGI Calculator Estimated Delivery Date Method Current WG Current Estimate 10/05/22 Ultrasound #1 38w 3d Other Estimates 10/18/22 LMP (Certain) 36w 4d PFSH [facility] Medical History (Updated 09/24/22 @ 17:[address] Lynsey Ambrocio, DO) Back pain Contact with and (suspected) exposure to other viral communicable diseases Depression Fibromyalgia Severe headache Sinusitis Home Medications ferrous sulfate 140 mg (45 mg iron) tablet,extended release 140 mg PO DAILY 03/04/22 [History Last Taken 09/22/22 08:00] folic acid 800 mcg tablet 0.8 mg PO DAILY 03/04/22 [History Last Taken 09/22/22 08:00] cephalexin 500 mg capsule 500 mg PO Q6 uti 10 days #40 caps 09/15/22 [Rx Last Taken 09/22/22 20:45] sertraline 25 mg tablet (Zoloft) 25 mg PO DAILY #90 tabs 09/22/22 [Rx Last Taken 09/22/22 08:00] Allergy/AdvReac Type Severity Reaction Status Date / Time No Known Allergies Allergy Verified 09/23/22 00:33 Family History Grandmother Breast cancer Paternal Other Migraines Social History adopted: No household members: significant other housing: house current occupational status: employed current occupation: [employer] current occupational exposures/hazards: No pets and animals: Yes pets and animals: dog(s) history of recent travel: No sexually active: Yes Smoking Status: Never smoker alcohol intake: former details: occasional substance use type: does not use well-balanced diet: about half the time caffeine: Yes Type: carbonated beverages Number of servings: 1 eating out: 1-3 times/week during the past year weight has: remained stable what type of physical activity do you participate in: walking frequency: 1-2 times per week duration: 15-30 minutes/day eveline/pentecostalism: Samaritan seatbelt use: always do you feel safe at home: Yes additional social history: Boyfriend- Killian - [employer] History 1 Elective abortions Hx Para 0 Spontaneous abortions Hx # Term Pregnancies Ectopic pregnancies Hx # Pregnancies Multiple births # of living children Visit Details Expected Delivery Route/Plan Labor Preferences- CB/BF classes: [] labor support person: [] labor intervention preferences: [] pain management options preferred: [] cut cord/dad catch: [] : [] PP control planned: [] discussed possible routes of delivery and associated risks: [] special requests: [] Plans Covid status: [] Flu vaccine: [] Tdap vaccine: 08/31/2022 Rhogam: [] LARC form signed: [] Problem list reviewed and updated with the most current plan of care details and appropriate orders placed. Relevant counseling for the gestational age provided. Continue routine care and follow up unless otherwise noted in visit notes/problem list details OB Flowsheet Initial Weight: Not Recorded Date -?-?-?-?-?-?-?-?-?-?-?-?- EGA Weight BP Urine Prot -?-?-?-?-?-?-?-?-?-?-?-?- Glucose FHR FuHt Pres Dilation -?-?-?-?-?-?-?-?-?-?-?-?- Effaced St Visit Note 03/11/22 -?-?-?-?-?-?-?-?-?-?-?-?- 10w 2d 135 lb 101/69 -?-?-?-?-?-?-?-?-?-?-?-?- 169 -?-?-?-?-?-?-?-?-?-?-?-?- JV- new georgi give n, CRL off by 2 weeks 03/29/22 -?-?-?-?-?-?-?-?-?-?-?-?- 12w 6d 137 lb 114/74 Negative -?-?-?-?-?-?-?-?-?-?-?-?- Negative 157 -?--?-?-?-?-?-?-?-?-?-?-?- SM- no vb lof cr maping doing well SM- no vb lof cramping doing well 04/28/22 -?-?-?-?-?-?-?-?-?-?-?-?- 17w 1d 141 lb 112/78 Negative -?-?-?-?-?-?-?-?-?-?-?-?- Negative 153 -?-?-?-?-?-?-?-?-?-?-?-?- MH-No VB, crampi ng. Doing well 05/27/22 -?-?-?-?-?-?-?-?-?-?-?-?- 21w 2d 144 lb 122/78 Negative -?-?-?-?-?-?-?-?-?-?-?-?- Negative 155 -?-?-?-?-?-?-?-?-?-?-?-?- JV- pt is doing well on 25 mg of zoloft but wonders if more may be better. She will double up on zoloft this week and call if wants the 50's. recommend no intercourse until low lying placenta is resolved. 06/22/22 -?-?-?-?-?-?-?-?-?-?-?-?- 25w 0d 151 lb 6 oz 122/83 Nega tive -?-?-?-?-?-?-?-?-?-?-?-?- Negative 140 -?-?-?-?-?-?-?-?-?-?-?-?- JV- gct pending today. tried 50 mg of zoloft and did not feel any better or worse so went back to 25 mg. recommend sticking with the 50 s and possibly increasing to 100 or 75 a s needed. 07/06/22 -?-?-?-?-?-?-?-?-?-?-?-?- 27w 0d 153 lb 9 oz 99/66 Nega tive -?-?-?-?-?-?-?-?-?-?-?-?- Negative 148 0 -?-?-?-?-?-?-?-?-?-?-?-?- -follow up fro m WP visit 2 nights ago with CTX. No cervical change. No reg CTX today. Reviewed PTL signs. 07/16/22 -?-?-?-?-?-?-?-?-?-?-?-?- 28w 3d 160 lb 6 oz 120/81 Nega tive -?-?-?-?-?-?-?-?-?-?-?-?- Negative 150 28 -?-?-?-?-?-?-?-?-?-?-?-?- JV- no lof, vagi nal bleeding, or dec fm. PTL precautions again discussed. 07/30/22 -?-?-?-?-?-?-?-?-?-?-?-?- 30w 3d 164 lb 4 oz 108/76 Nega tive -?-?-?-?-?-?-?-?-?-?-?-?- Negative 155 30 -?-?-?-?-?-?-?-?-?-?-?-?- JV- no lof, vagi nal bleeding, or dec fm. larc signed. pt will think about tdap. has mary y shower this weekend, 08/12/22 -?-?-?-?-?-?-?-?-?-?-?-?- 32w 2d 167 lb 8 oz 109/74 Nega tive -?-?-?-?-?-?-?-?--?-?-?-?- Negative 150 32 -?-?-?-?-?-?-?-?-?-?-?-?- LC- no vb/ctx/lo f. good fm. 08/25/22 -?-?-?-?-?-?-?-?-?-?-?-?- 34w 1d 173 lb 4 oz 116/81 Nega tive -?-?-?-?-?-?-?-?-?-?-?-?- Negative 134 34 Cephalic 0 -?-?-?-?-?-?-?-?-?-?-?-?- 0 -2 JV-pt comp lains of pressure and round ligament pain. PTL precautions discussed. 09/10/22 -?-?-?-?-?-?-?-?-?-?-?-?- 36w 3d 183 lb 131/84 -?-?-?-?-?-?-?-?-?-?-?-?- 135 37 Cephalic 0.5 -?-?-?-?-?-?-?-?-?-?-?-?- 0 -3 SM- no vb lof good fm n oregular ctx 09/14/22 -?-?-?-?-?-?-?-?-?-?-?-?- 37w 0d 184 lb 6 oz 132/94 Trac e -?-?-?-?-?-?-?-?-?-?-?-?- Negative 142 37 Cephalic 0 .5 -?-?-?-?-?-?-?-?-?-?-?-?- -3 MH-No VB , LOF. Good FM. Headache X 2 days. No vision changes. Edema hands/feet. To for Pre E evaluation 09/21/22 -?-?-?-?-?-?-?-?-?-?-?-?- 38w 0d 190 lb 2 oz 118/83 1+ -?-?-?-?-?-?-?-?-?-?-?-?- Negative 130 38 Cephalic 1 .5 -?--?-?-?-?-?-?-?-?-?-?-?- 60 -2 SM- 3+ moira ma taking antibiotics for uti no vb lof good fm no regular ctx membranes swept, check cbc cmp urine protein labs now ROS Constitutional Constitutional: Reports systems reviewed and no addt'l complaints, except as documented Gastrointestinal Gastrointestinal: Denies bloating, constipation, cramping, diarrhea, nausea or vomiting Genitourinary Genitourinary: Reports other Details: Denies vaginal odor, vaginal bleeding, or vaginal discharge ; Denies difficulty urinating or flank pain NST FHR Rate Baby A Baseline: 140 Variability:: Moderate Accelerations:: 15 x 15 Decelerations:: None NST Reactive:: Yes FHR Category:: Category I Assessment & Plan (1) False labor after 37 completed weeks of gestation: PLAN: no cervical change after 2.5 hrs. dc to home in stable condition with labor precautions Charges/Coding Multi Select Codes Urinary/Genital Urinary/Genital CPT Codes: 08317-34 non-stress test Interp
== END 2022-09-23 02:50 | disposition home or self-care (01) ==
LOC: WPOUT 09-23 00:03 → WP 09-23 00:03
PROVIDERS: Referring Provider Obstetrics & Gynecology; Visit Provider Obstetrics & Gynecology
DX: O47.1 False labor at or after 37 completed weeks of gestation (principal); O99.343 Other mental disorders complicating pregnancy, third trimester; Z79.899 Other long term (current) drug therapy; Z3A.38 38 weeks gestation of pregnancy; F32.A Depression, unspecified
CPT/HCPCS: 59025; 59050 ×2

== ENCOUNTER 2022-09-23 08:20 | Inpatient (IN) | payer MEDICAID, SELFPAY ==
[2022-09-23] VITALS (52 sets, daily range): BP systolic 108–161; BP diastolic 58–99; PULSE 85–118; TEMP 36.3–37.6; O2SAT 88–100; BMI 37.0
[2022-09-23 08:19] LABS: ROM Internal Control Test YES-OK TO RESULT pt. (Internal QC)
[2022-09-23 08:21] LABS: ROM Patient Test POSITIVE (Negative)
[2022-09-23] MEDS: Lactated Ringers 1,000 ML 50 ML IV (09:10)
[2022-09-23 09:27] LABS: Absolute Lymphocyte Count 1.23 X10^3/uL (0.83-4.51); Absolute Neutrophil Count 9.8 X10^3/uL (2.0-7.7); Basophil# 0.02 X10^3/uL; Basophil% 0.2 % (0-1); Eosinophil# 0.14 X10^3/uL; Eosinophils% 1.1 % (0-5); Hematocrit 37.9 % (37-47); Hemoglobin 12.9 g/dL (12.0-15.0); Lymphocyte # 1.23 X10^3/ul (0.83-4.51); Mean Corpuscular Hgb 32.2 pg (27.0-32.0); Mean Corpuscular Volume 94.5 fL (81-99); Mean Platelet Vol. 12.5 fl (6.2-12.0); Monocyte% 8.9 % (0-10); NRBC Flagged by Analyzer 0 % (0-5); Neutrophil # 9.78 X10^3/uL (2.7-7.7); Neutrophil % 79.2 % (47-70); Platelet Count 175 K/mm3 (150-450); RBC Distribution Width CV 12.5 % (11.6-14.6); RBC Distribution Width SD 43.7 fl (35.1-43.9); Red Blood Count 4.01 M/mm3 (4.2-5.4); White Blood Count 12.3 K/mm3 (4.4-11.0)
[2022-09-23] MEDS: Oxytocin 15 Units/NS 250ml 15 UNITS/250 ML IV.SOLN 2 UNITS IV (10:00)
[2022-09-23 10:28] LABS: Syphilis Antibodies Non-reactive
[2022-09-23] MEDS: LACTATED RINGERS 500 ML 999 ML IV ×2 (13:25→16:20)
[2022-09-23] MEDS: fentaNYL-bupivacaine (epidural) 100 ML BAG EPIDURAL ×2 (13:59→18:38)
--- NOTE | 2022-09-23 17:06 | HP.PCM.OB_ITS ---
HPI - General General Date of Admission: 09/23/22 HPI Narrative GRANT ARMSTRONG, is a 22 F who presents IAL SROM clear fluid 6 am 1-2 cm dilated Maternal Data Information GEORGI Calculator Estimated Delivery Date Method Current WG Current Estimate 10/05/22 Ultrasound #1 38w 2d Other Estimates 10/18/22 LMP (Certain) 36w 3d PFSH PFSH Medical History (Updated 09/23/22 @ 17:[address] Karyna Mckenzie MD) Back pain Contact with and (suspected) exposure to other viral communicable diseases Depression Fibromyalgia Severe headache Sinusitis Home Medications ferrous sulfate 140 mg (45 mg iron) tablet,extended release 140 mg PO DAILY 03/04/22 [History Last Taken 09/22/22 08:00] folic acid 800 mcg tablet 0.8 mg PO DAILY 03/04/22 [History Last Taken 09/22/22 08:00] cephalexin 500 mg capsule 500 mg PO Q6 uti 10 days #40 caps 09/15/22 [Rx Last Taken 09/22/22 20:45] sertraline 25 mg tablet (Zoloft) 25 mg PO DAILY #90 tabs 09/22/22 [Rx Last Taken 09/22/22 08:00] Allergy/AdvReac Type Severity Reaction Status Date / Time No Known Allergies Allergy Verified 09/23/22 00:33 Family History Grandmother Breast cancer Paternal Other Migraines Social History adopted: No household members: significant other housing: house current occupational status: employed current occupation: [employer] current occupational exposures/hazards: No pets and animals: Yes pets and animals: dog(s) history of recent travel: No sexually active: Yes Smoking Status: Never smoker alcohol intake: former details: occasional substance use type: does not use well-balanced diet: about half the time caffeine: Yes Type: carbonated beverages Number of servings: 1 eating out: 1-3 times/week during the past year weight has: remained stable what type of physical activity do you participate in: walking frequency: 1-2 times per week duration: 15-30 minutes/day eveline/holiness: Zoroastrianism seatbelt use: always do you feel safe at home: Yes additional social history: Boyfriend- Killian - [employer] History 1 Elective abortions Hx Para 0 Spontaneous abortions Hx # Term Pregnancies Ectopic pregnancies Hx # Pregnancies Multiple births # of living children Visit Details Expected Delivery Route/Plan Labor Preferences- CB/BF classes: [] labor support person: [] labor intervention preferences: [] pain management options preferred: [] cut cord/dad catch: [] : [] PP control planned: [] discussed possible routes of delivery and associated risks: [] special requests: [] Plans Covid status: [] Flu vaccine: [] Tdap vaccine: 08/31/2022 Rhogam: [] LARC form signed: [] Problem list reviewed and updated with the most current plan of care details and appropriate orders placed. Relevant counseling for the gestational age provided. Continue routine care and follow up unless otherwise noted in visit notes/problem list details OB Flowsheet Initial Weight: Not Recorded Date -?-?-?-?-?-?-?-?--?-?-?-?- EGA Weight BP Urine Prot -?-?-?-?-?-?-?-?-?-?-?-?- Glucose FHR FuHt Pres Dilation -?-?-?-?-?-?-?-?-?-?-?-?- Effaced St Visit Note 03/11/22 -?-?-?-?-?-?-?-?-?-?-?-?- 10w 2d 135 lb 101/69 -?-?-?-?-?-?-?-?-?-?-?-?- 169 -?-?-?-?-?-?-?-?-?-?-?-?- JV- new georgi give n, CRL off by 2 weeks 03/29/22 -?-?-?-?-?-?-?-?-?-?-?-?- 12w 6d 137 lb 114/74 Negative -?-?-?-?-?-?-?-?-?-?-?-?- Negative 157 -?-?-?-?-?-?-?-?-?-?-?-?- SM- no vb lof cr maping doing well SM- no vb lof cramping doing well 04/28/22 -?-?-?-?-?-?-?-?-?-?-?-?- 17w 1d 141 lb 112/78 Negative -?-?-?-?-?-?-?-?-?-?-?-?- Negative 153 -?-?-?-?-?-?-?-?-?-?-?-?- -No VB, crampi ng. Doing well 05/27/22 -?-?-?-?-?-?-?-?-?-?-?-?- 21w 2d 144 lb 122/78 Negative -?-?-?-?-?-?-?-?-?-?-?-?- Negative 155 -?-?-?-?-?-?-?-?-?-?-?-?- JV- pt is doing well on 25 mg of zoloft but wonders if more may be better. She will double up on zoloft this week and call if wants the 50's. recommend no intercourse until low lying placenta is resolved. 06/22/22 -?-?-?-?-?-?-?-?-?-?-?-?- 25w 0d 151 lb 6 oz 122/83 Nega tive -?-?-?-?-?-?-?-?-?-?-?-?- Negative 140 -?-?-?-?-?-?-?-?-?-?-?-?- JV- gct pending today. tried 50 mg of zoloft and did not feel any better or worse so went back to 25 mg. recommend sticking with the 50 s and possibly increasing to 100 or 75 a s needed. 07/06/22 -?-?-?-?-?-?-?-?-?-?-?-?- 27w 0d 153 lb 9 oz 99/66 Nega tive -?-?-?-?-?-?-?-?-?-?-?-?- Negative 148 0 -?-?-?-?-?-?-?-?-?-?-?-?- -follow up fro m WP visit 2 nights ago with CTX. No cervical change. No reg CTX today. Reviewed PTL signs. 07/16/22 -?-?-?-?-?-?-?-?-?-?-?-?- 28w 3d 160 lb 6 oz 120/81 Nega tive -?-?-?-?-?-?-?-?-?-?-?-?- Negative 150 28 -?-?-?-?-?-?-?-?-?-?-?-?- JV- no lof, vagi nal bleeding, or dec fm. PTL precautions again discussed. 07/30/22 -?-?-?-?-?-?-?-?-?-?-?-?- 30w 3d 164 lb 4 oz 108/76 Nega tive -?-?-?-?-?-?-?-?-?-?-?-?- Negative 155 30 -?-?-?-?-?-?-?-?-?-?-?-?- JV- no lof, vagi nal bleeding, or dec fm. larc signed. pt will think about tdap. has mary y shower this weekend, 08/12/22 -?-?-?-?-?-?-?-?-?-?-?-?- 32w 2d 167 lb 8 oz 109/74 Nega tive -?-?-?-?-?-?-?-?-?-?-?-?- Negative 150 32 -?-?-?-?-?-?-?-?-?-?-?-?- LC- no vb/ctx/lo f. good fm. 08/25/22 -?-?-?-?-?-?-?-?-?-?-?-?- 34w 1d 173 lb 4 oz 116/81 Nega tive -?-?-?-?-?-?-?-?-?-?-?-?- Negative 134 34 Cephalic 0 -?-?-?-?-?-?-?-?-?-?-?-?- 0 -2 JV-pt comp lains of pressure and round ligament pain. PTL precautions discussed. 09/10/22 -?-?-?-?-?-?-?-?-?-?-?-?- 36w 3d 183 lb 131/84 -?-?-?-?-?-?-?-?-?-?-?-?- 135 37 Cephalic 0.5 -?-?-?-?-?-?-?-?-?-?-?-?- 0 -3 SM- no vb lof good fm n oregular ctx 09/14/22 -?-?-?-?-?-?-?-?-?-?-?-?- 37w 0d 184 lb 6 oz 132/94 Trac e -?-?-?-?-?-?-?-?-?-?-?-?- Negative 142 37 Cephalic 0 .5 -?-?-?-?-?-?-?-?-?-?-?-?- -3 MH-No VB , LOF. Good FM. Headache X 2 days. No vision changes. Edema hands/feet. To for Pre E evaluation 09/21/22 -?-?-?-?-?-?-?-?-?-?-?-?- 38w 0d 190 lb 2 oz 118/83 1+ -?-?-?-?-?-?-?-?-?--?-?-?- Negative 130 38 Cephalic 1 .5 -?-?-?-?-?-?-?-?-?-?-?-?- 60 -2 SM- 3+ moira ma taking antibiotics for uti no vb lof good fm no regular ctx membranes swept, check cbc cmp urine protein labs now 09/23/22 -?-?-?-?-?-?-?-?-?-?-?-?- 38w 2d 190 lb 122/80 128/86 132/90 141/99 161/91 160/93 144/92 144/87 142/84 126/79 133/73 124/81 112/65 108/65 126/76 124/85 -?-?-?-?-?-?-?-?-?-?-?-?- -?-?-?-?-?-?-?-?-?-?-?-?- NST FHR Rate Baby A Baseline: 120 Variability:: Moderate Accelerations:: 15 x 15 Decelerations:: None NST Reactive:: Yes FHR Category:: Category I Uterine Activity:: q3-5 ROS Constitutional Constitutional: Reports systems reviewed and no addt'l complaints, except as documented ENT HEENT: Reports systems reviewed and no addt'l complaints, except as documented Cardiovascular Cardiovascular: Reports systems reviewed and no addt'l complaints, except as documented Respiratory/Chest Respiratory/Chest: Reports systems reviewed and no addt'l complaints, except as documented Gastrointestinal Gastrointestinal: Reports systems reviewed and no addt'l complaints, except as documented and nausea; Denies abdominal pain Genitourinary Genitourinary: Reports systems reviewed and no addt'l complaints, except as documented, contractions Details: present and frequency (regular ) and movement Details: present Musculoskeletal Musculoskeletal: Reports systems reviewed and no addt'l complaints, except as documented Integumentary Integumentary: Reports as per HPI Neurologic Neurologic: Reports systems reviewed and no addt'l complaints, except as documented Endocrine Endocrinology: Reports systems reviewed and no addt'l complaints, except as documented Vital Signs Vital Signs Vital Signs: 09/23/22 07:55 09/23/22 07:55 09/23/22 07:54 Temperature Temperature Source Pulse Rate 93 Blood Pressure 122/80 H BP Systolic 122 BP Diastolic 80 Pulse Ox 99 09/23/22 07:55 09/23/22 07:55 09/23/22 09:33 Temperature 97.3 F L Temperature Source Temporal Pulse Rate Blood Pressure 128/86 H BP Systolic 128 BP Diastolic 86 Pulse Ox 09/23/22 09:33 09/23/22 11:19 09/23/22 11:19 Temperature Temperature Source Pulse Rate 87 98 Blood Pressure 132/90 H BP Systolic 132 BP Diastolic 90 Pulse Ox 09/23/22 11:43 09/23/22 11:43 09/23/22 12:42 Temperature 98.8 F Temperature Source Tympanic Pulse Rate Blood Pressure 141/99 H BP Systolic 141 BP Diastolic 99 Pulse Ox 09/23/22 12:42 09/23/22 12:59 09/23/22 12:59 Temperature Temperature Source Pulse Rate 85 87 Blood Pressure 161/91 H BP Systolic 161 BP Diastolic 91 Pulse Ox 09/23/22 13:14 09/23/22 13:14 09/23/22 12:59 Temperature Temperature Source Tympanic Pulse Rate 90 Blood Pressure 160/93 H BP Systolic 160 BP Diastolic 93 Pulse Ox 09/23/22 13:42 09/23/22 13:42 09/23/22 12:59 Temperature 98.8 F Temperature Source Pulse Rate 100 Blood Pressure BP Systolic BP Diastolic Pulse Ox 88 09/23/22 13:42 09/23/22 13:42 09/23/22 13:45 Temperature Temperature Source Pulse Rate 93 Blood Pressure 144/92 H BP Systolic 144 BP Diastolic 92 Pulse Ox 100 09/23/22 13:45 09/23/22 13:47 09/23/22 13:47 Temperature Temperature Source Pulse Rate 94 104 H Blood Pressure BP Systolic BP Diastolic Pulse Ox 100 09/23/22 13:51 09/23/22 13:51 09/23/22 13:52 Temperature Temperature Source Pulse Rate 98 95 Blood Pressure 144/87 H BP Systolic 144 BP Diastolic 87 Pulse Ox 09/23/22 13:52 09/23/22 13:56 09/23/22 13:56 Temperature Temperature Source Pulse Rate 94 Blood Pressure 142/84 H BP Systolic 142 BP Diastolic 84 Pulse Ox 100 09/23/22 13:57 09/23/22 13:57 09/23/22 14:02 Temperature Temperature Source Pulse Rate 113 H Blood Pressure 126/79 H BP Systolic 126 BP Diastolic 79 Pulse Ox 100 09/23/22 14:02 09/23/22 14:06 09/23/22 14:06 Temperature Temperature Source Pulse Rate 90 95 Blood Pressure 133/73 H BP Systolic 133 BP Diastolic 73 Pulse Ox 09/23/22 13:45 09/23/22 13:55 09/23/22 14:11 Temperature Temperature Source Pulse Rate Blood Pressure 124/81 H BP Systolic 124 BP Diastolic 81 Pulse Ox 100 100 09/23/22 14:11 09/23/22 14:31 09/23/22 14:31 Temperature Temperature Source Pulse Rate 96 96 Blood Pressure 112/65 BP Systolic 112 BP Diastolic 65 Pulse Ox 09/23/22 14:48 09/23/22 14:48 09/23/22 14:48 Temperature Temperature Source Tympanic Pulse Rate 95 Blood Pressure 108/65 BP Systolic 108 BP Diastolic 65 Pulse Ox 09/23/22 14:48 09/23/22 14:48 09/23/22 15:56 Temperature 98.4 F Temperature Source Pulse Rate Blood Pressure 126/76 H BP Systolic 126 BP Diastolic 76 Pulse Ox 99 09/23/22 15:56 09/23/22 15:59 09/23/22 15:59 Temperature Temperature Source Pulse Rate 100 116 H Blood Pressure BP Systolic BP Diastolic Pulse Ox 100 09/23/22 15:56 09/23/22 15:56 09/23/22 15:56 Temperature 98.4 F Temperature Source Temporal Pulse Rate Blood Pressure BP Systolic BP Diastolic Pulse Ox 100 09/23/22 17:03 09/23/22 17:03 09/23/22 17:03 Temperature Temperature Source Pulse Rate 107 H Blood Pressure 124/85 H BP Systolic 124 BP Diastolic 85 Pulse Ox 100 09/23/22 17:03 09/23/22 17:03 09/23/22 17:03 Temperature 98.6 F Temperature Source Temporal Pulse Rate Blood Pressure BP Systolic BP Diastolic Pulse Ox 100 Weight Weight: 190 lb Body Mass Index (BMI) 37.0 Physical Exam Const alert, oriented x3 and healthy appearing Constitutional Narrative: uncomfortable with contractions HEENT normocephalic and moist oral mucous membranes Head and Scalp: atraumatic Neck full ROM, no lymphadenopathy, supple and thyroid normal General: trachea midline Thyroid: thyroid normal Lymph Lymphatic: no lymphadenopathy noted Chest inspection of chest normal Resp normal respiratory effort Cardio regular rate GI normal to inspection, nondistended, normoactive bowel sounds, soft to palpation and non-tender Inspection: gravid external exam normal Bimanual Exam - Vag & Uterus: uterus non-tender Manual OB Exam: estimated gestational size appropriate, presentation cephalic, dilated, effaced and station Extremity normal to inspection General Extremity: Negative for edema Skin no rashes or lesions noted Neuro deep tendon reflexes 2+ bilaterally Motor Exam: strength 5/5 throughout and clonus absent Psych mental status grossly normal Labs Labs Labs: Blood Type O POSITIVE Antibody Screen NEGATIVE Hct 37.9 % (37-47) Hgb 12.9 g/dL (12.0-15.0) Syphilis Total Ab Non-reactive Rubella IgG Antibody Reactive (Nonreactive) Hep Bs Antigen Non-Reactive (Nonreactive) Chlamydia DNA (SHANITA) Negative (Negative) Neisseria gonorrhoeae DNA (SHANITA) Negative (Negative) HIV 1&2 Antibody Non-Reactive (Nonreactive) Glucose 1 Hr 50 gm 115 mg/dL (70-140) Miscellaneous Test Assessment & Plan (1) Asthma: COMMENT: exercise induced (2) : QUALIFIERS: Weeks of gestation: 38 weeks Qualified Code(s): Z3A.38 - 38 weeks gestation of COMMENT: GBS neg, Anatomy US normal. carrier neg. , genetic testing low risk (3) Supervision of high risk , antepartum: COMMENT: PRR s, boy, EzraEDD 10/18/22, Boyfriend- Killian (4) 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al: COMMENT: Repeat pap in 1 year (5) Depression affecting : COMMENT: on zoloft 50 mg (6) UTI (urinary tract infection) during : COMMENT: 09/15 (7) SROM (spontaneous rupture of membranes): PLAN: Plan Patient presents IAL, plan expectant management for , pitocin planned due to minimal cervical change Pain management: plans epidural. GBS neg. Management of any complications: none I have reviewed the [facility] and made any clinically relevant updates.
--- NOTE | 2022-09-23 17:10 | PN_ITS ---
Progress Note patient making change now 6 cm current tracing: FHT: 120 Moderate variability reactive prolonged decel followed by early decelerations category II tracing [place]: q 2-3 Contractions reviewed tracing abnormalities since last note: fluid bolus, position changes, pitocin off A/P: exp mangement, making change overall reassuring
[2022-09-23] MEDS: Lactated Ringers 1,000 ML 200 ML IV (17:35)
--- NOTE | 2022-09-23 20:06 | OP.PCM_ITS ---
Assessment & Plan (1) UTI (urinary tract infection) during : COMMENT: 09/15 (2) Depression affecting : COMMENT: on zoloft 50 mg (3) 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al: COMMENT: Repeat pap in 1 year (4) Supervision of high risk , antepartum: COMMENT: PRR s, boy, EzraEDD 10/18/22, Boyfriend- Killian (5) : QUALIFIERS: Weeks of gestation: 38 weeks Qualified Code(s): Z3A.38 - 38 weeks gestation of COMMENT: GBS neg, Anatomy US normal. carrier neg. , genetic testing low risk (6) Asthma: COMMENT: exercise induced (7) Fibromyalgia: (8) SROM (spontaneous rupture of membranes): (9) Vaginal delivery: COMMENT: SM IAL SROM boy kate Maternal Data Information GEORGI Calculator Estimated Delivery Date Method Current WG Current Estimate 10/05/22 Ultrasound #1 38w 2d Other Estimates 10/18/22 LMP (Certain) 36w 3d Vaginal Delivery Operative Information Date of Procedure: 09/23/22 Pre-Operative Diagnosis: see a/p diagnoses Post-Operative Diagnosis: same Surgery / Procedure Performed: Spontaneous Vaginal Delivery Type of Anesthesia: Epidural Special Medications: none Estimated Blood Loss: 200 Fluids Replaced: crystalloid Findings Description of Procedure: Patient began pushing and delivered the head in the viktor presentation. The head was delivered atraumatically . The anterior and posterior shoulders delivered without complication followed by the rest of the and the infant was placed on the maternal abdomen. Delayed cord clamping was employed for approximately 60 seconds. Cord was clamped and cut and gentle traction was applied to the cord and the placenta delivered spontaneously immediately following it was noted to be intact with three-vessel cord. The perineum and vagina were inspected and noted to have no laceration. EBL was 200 cc. Patient and tolerated delivery well. Amniotic Fluid Description: Clear Placental Delivery Description: Spontaneous Placenta Disposition: [facility] Cord Vessel Description: 3 Vessels Cord Entanglement: None Delayed Cord Clamping: Yes Post Vaginal Delivery Medications Given After Delivery: IV Pitocin Episiotomy Description: None Complication Complications: None Procedures Urinary/Genital [id number]: [id number] Vaginal Delivery+PP Care([facility])
--- NOTE | 2022-09-23 20:25 | DCINST_ITS ---
Discharge Instructions Diet Discharge Diet: No restrictions Activity Discharge Activity: Return to Normal Activity, May Drive, May Shower and May Take a Tub Bath (in 4 weeks) May resume sexual activity in: 6-8 weeks (after seen by OB provider) Weight Bearing Status: Full weight bearing Lifting Restrictions: none Dressing / Incision Call your doctor if you observe: Fever of 101 or Higher, Inability to urinate, Using more than 1 pad per hour (for more than 2 hours in a row or more), Shortness of breath, Dizziness, Chest pain and - (headache not controlled with tylenol, change in vision) Follow Up Care When: in 6 weeks for visit, call the office to make the appointment. If you had elevated blood pressures call the office to be seen within 1 week. Test Results: Test results from this visit will be discussed in further detail at your follow- up appointment, if applicable. Discharge Plan Admission Admit Date/Time: 09/23/22 08:20 Attending Provider: Lynsey Ambrocio Primary Care Provider: Care Physician,Torri Primary Discharge Orders/Prescriptions Prescriptions: No Action folic acid 800 mcg tablet 0.8 mg PO DAILY ferrous sulfate 140 mg (45 mg iron) tablet extended release 140 mg PO DAILY cephalexin 500 mg capsule 500 mg PO Q6 10 Days Qty: 40 0RF sertraline [Zoloft] 25 mg tablet 25 mg PO DAILY Qty: 90 1RF Referrals / Follow Up: Care Physician,No Primary [Primary Care Provider] -
[2022-09-23] MEDS: Oxytocin 15 Units/NS 250ml 15 UNITS/250 ML IV.SOLN 83 UNITS IV (21:29)
[2022-09-24] MEDS: 0.9% Saline Lock 10 ML Syringe IV (00:40)
[2022-09-24] MEDS: Acetaminophen 500 MG Tablet 1000 MG PO (00:43)
[2022-09-24 03:58] VITALS: BP 114/82; PULSE 87; RESP 16; TEMP 36.5; O2SAT 99
--- NOTE | 2022-09-24 07:15 | NURSING ---
bedside report given to Joshua Camarillo RN who is assuming care of pt at this time
--- NOTE | 2022-09-24 07:53 | PCM.PN.OB ---
Objective Data Objective Data Patient doing well without complaints. Tolerating PO. Ambulating and voiding without difficulty. Feeding well. Denies chest pain, shortness of breath, calf pain/swelling, fevers, chills, lightheadedness. wants to go back to sleep and has no further questions Vital Signs: Vital Signs Temp Pulse Resp BP Pulse Ox O2 Del Method 97.7 F L 87 16 114/82 H 99 Room Air 09/24/22 03:58 09/24/22 03:58 09/24/22 03:58 09/24/22 03:58 09/24/22 03:58 09/24/22 03:58 Oxygen Delivery Method Room Air Weight: 190 lb Body Mass Index (BMI) 37.0 Intake & Output: Intake and Output for Last 24 Hours 09/22/22 09/23/22 09/24/22 23:59 23:59 23:59 Intake Total 3189.17 / 3189.17 250 / 250 Output Total 400 / 400 1050 / 1050 Balance 2789.17 / 2789.17 -800 / -800 Lab / Micro Data Result Diagrams: 09/23/22 09:10 Labs: Laboratory Results - last 24 hr 09/23/22 08:00: Vag Amniotic Fld Detect POSITIVE H 09/23/22 09:10: WBC 12.3 H, RBC 4.01 L, Hgb 12.9, Hct 37.9, MCV 94.5, MCH 32.2 H, MCHC 34.0, RDW Std Deviation 43.7, RDW Coeff of Richard 12.5, Plt Count 175, MPV 12.5 H, Immature Gran % (Auto) 0.600, Neut % (Auto) 79.2 H, Lymph % (Auto) 10.0 L, [place] % (Auto) 8.9, Eos % (Auto) 1.1, Baso % (Auto) 0.2, Absolute Neuts (auto) 9.8 H, Absolute Lymphs (auto) 1.23, Nucleated RBC % 0 09/23/22 09:10: Blood Type O POSITIVE, Antibody Screen NEGATIVE 09/23/22 09:10: Syphilis Total Ab Non-reactive ROS Constitutional Constitutional: Denies chills, fatigue, fever(s), poor appetite or weakness Eyes Eyes: Denies blurry vision, change in vision, seeing flashes or spots in vision ENT HEENT: Denies dizziness, headache(s), loss taste/smell or sore throat Cardiovascular Cardiovascular: Denies chest pain, dizziness, dyspnea, irregular heart rhythm, palpitations or rapid heart rate Respiratory/Chest Respiratory/Chest: Denies chest tightness, cough, dyspnea or breast pain Gastrointestinal Gastrointestinal: Denies abdominal pain, constipation or vomiting Genitourinary Genitourinary: Denies dysuria or flank pain Musculoskeletal Musculoskeletal: Denies difficulty walking, joint pain, limited range of motion or numbness Neurologic Neurologic: Denies abnormal movements, abnormal speech, dizziness, numbness, seizure-like activity or syncope Psychiatric Psychiatric: Denies anxiety, behavioral changes, change in appetite, confusion, depression or suicidal thoughts Physical Exam Const alert, oriented x3 and no apparent distress General Appearance: cooperative and comfortable Resp normal respiratory effort Cardio regular rate GI normal to inspection, nondistended, normoactive bowel sounds GI Narrative: uterus is firm below umbilicus Palpation: soft Back/Spine no CVA tenderness and thoraco-lumbar ROM normal Extremity normal to inspection, no clubbing, cyanosis or edema, no calf tenderness and no pedal edema Psych mental status grossly normal, thought process normal, cooperative, affect normal, speech normal, activity/motor behavior normal, denies homicidal ideation and denies suicidal ideation Assessment & Plan (1) Vaginal delivery: COMMENT: MARGOTH SANCHEZ SROM boy kate PLAN: s/p DESTINEE PPD # 1 1. routine post delivery care 2. breast feeding- support given 3. rh positive 4. rubella immune
[2022-09-24] MEDS: Sertraline 50 MG Tablet 25 MG PO (09:57)
[2022-09-24 10:00] VITALS: BP 125/86; PULSE 102; RESP 16; TEMP 36.8
[2022-09-24 14:00] VITALS: BP 126/82; PULSE 119; RESP 16; TEMP 36.7
[2022-09-24 20:35] VITALS: BP 136/92; PULSE 105; RESP 18; TEMP 36.7; O2SAT 99
[2022-09-25 02:10] VITALS: BP 114/69; PULSE 87; RESP 16; TEMP 36.6
[2022-09-25 08:29] VITALS: BP 126/80; PULSE 94; RESP 16; TEMP 36.6; O2SAT 97
[2022-09-25] MEDS: Acetaminophen 500 MG Tablet 1000 MG PO (08:40)
[2022-09-25] MEDS: Sertraline 50 MG Tablet 25 MG PO (08:40)
--- NOTE | 2022-09-25 10:03 | PCM.PN.OB ---
Subjective Subjective Patient doing well without complaints. Tolerating PO. Ambulating and voiding without difficulty. Feeding well. Denies chest pain, shortness of breath, calf pain/swelling, fevers, chills, lightheadedness. Objective Data Objective Data Vital Signs: Vital Signs Temp Pulse Resp BP Pulse Ox O2 Del Method 97.8 F 94 16 126/80 H 97 Room Air 09/25/22 08:29 09/25/22 08:29 09/25/22 08:29 09/25/22 08:29 09/25/22 08:29 09/25/22 08:29 Oxygen Delivery Method Room Air Weight: 190 lb Body Mass Index (BMI) 37.0 Intake & Output: Intake and Output for Last 24 Hours 09/23/22 09/24/22 09/25/22 23:59 23:59 23:59 Intake Total 3189.17 / 3189.17 250 / 250 Output Total 400 / 400 1050 / 1050 Balance 2789.17 / 2789.17 -800 / -800 Lab / Micro Data Result Diagrams: 09/23/22 09:10 ROS Constitutional Constitutional: Denies chills, fatigue, fever(s), poor appetite or weakness Eyes Eyes: Denies blurry vision, change in vision, seeing flashes or spots in vision ENT HEENT: Denies dizziness, headache(s), loss taste/smell or sore throat Cardiovascular Cardiovascular: Denies chest pain, dizziness, dyspnea, irregular heart rhythm, palpitations or rapid heart rate Respiratory/Chest Respiratory/Chest: Denies chest tightness, cough, dyspnea or breast pain Gastrointestinal Gastrointestinal: Denies abdominal pain, constipation or vomiting Genitourinary Genitourinary: Denies dysuria or flank pain Musculoskeletal Musculoskeletal: Denies difficulty walking, joint pain, limited range of motion or numbness Neurologic Neurologic: Denies abnormal movements, abnormal speech, dizziness, numbness, seizure-like activity or syncope Psychiatric Psychiatric: Denies anxiety, behavioral changes, change in appetite, confusion, depression or suicidal thoughts Physical Exam Const alert, oriented x3 and no apparent distress General Appearance: cooperative and comfortable Resp normal respiratory effort Cardio regular rate GI normal to inspection, nondistended, normoactive bowel sounds GI Narrative: uterus is firm below umbilicus Palpation: soft Back/Spine no CVA tenderness and thoraco-lumbar ROM normal Extremity normal to inspection, no clubbing, cyanosis or edema, no calf tenderness and no pedal edema Psych mental status grossly normal, thought process normal, cooperative, affect normal, speech normal, activity/motor behavior normal, denies homicidal ideation and denies suicidal ideation Assessment & Plan (1) Vaginal delivery: COMMENT: MARGOTH SANCHEZ SROM oliver love PLAN: s/p PPD # 2 1. routine post delivery care 2. breast feeding- support given 3. rh positive 4. rubella immune 5. ready for dc to home today
[2022-09-25 14:07] VITALS: BP 136/82; PULSE 90; RESP 16; TEMP 36.7; O2SAT 98
== END 2022-09-25 14:25 | disposition home or self-care (01) | DRG 560 ==
LOC: WPOUT 08:27 → WP 08:27
PROVIDERS: Obstetrics & Gynecology; Admitting Provider Obstetrics & Gynecology; Visit Provider Obstetrics & Gynecology
DX: O76 Abnormality in fetal heart rate and rhythm complicating labor and delivery (principal); Z37.0 Single live birth; O99.344 Other mental disorders complicating childbirth; F32.A Depression, unspecified; M79.7 Fibromyalgia; X58.XXXA Exposure to other specified factors, initial encounter; O99.892 Other specified diseases and conditions complicating childbirth; O42.92 Full-term premature rupture of membranes, unspecified as to length of time between rupture and onset of labor; Z3A.38 38 weeks gestation of pregnancy; Z79.899 Other long term (current) drug therapy
CPT/HCPCS: 36415; 59025; 59050; 80053; 82570; 84112; 84156; 85025; 86780; 86850; 86900; 86901; 99221; J7120; A4216; G0378

== ENCOUNTER → 2022-11-11 | Outpatient (CLI) | payer MEDICAID, SELFPAY ==
[2022-11-20 11:14] LABS: HPV Reflexed? NOT INDICATED
== END | disposition home or self-care (01) ==
LOC: LABSPEC 14:12
PROVIDERS: Referring Provider Registered Nurse; Visit Provider Registered Nurse
DX: Z12.4 Encounter for screening for malignant neoplasm of cervix (principal)
CPT/HCPCS: 88175; G0145

== ENCOUNTER → 2022-12-23 | Outpatient (CLI) | payer MEDICAID, SELFPAY ==
[2022-12-29 16:15] LABS: HPV Reflexed? NOT INDICATED
== END | disposition home or self-care (01) ==
LOC: LABSPEC 15:38
PROVIDERS: Referring Provider Registered Nurse; Visit Provider Registered Nurse
DX: Z12.4 Encounter for screening for malignant neoplasm of cervix (principal)
CPT/HCPCS: 88175; G0145

== ENCOUNTER → 2023-04-21 | Outpatient (CLI) | payer OTHER, MEDICAID, SELFPAY | END | disposition home or self-care (01) | LOC: LABSPEC 13:26 | PROVIDERS: Visit Provider Nurse Practitioner Women's Health | DX: N89.8 Other specified noninflammatory disorders of vagina (principal) | CPT/HCPCS: 87070; 87205 ==

== ENCOUNTER → 2023-05-02 | Outpatient (CLI) | payer OTHER, MEDICAID, SELFPAY ==
--- NOTE | 2023-05-02 15:57 | US_ITS ---
INDICATION: pain-lower abd EXAMINATION: Ultrasound US Pelvis Non OB Complete With Transvaginal Imaging TECHNIQUE: Transabdominal and transvaginal pelvic ultrasound was performed. Grayscale, spectral waveform, and color flow Doppler evaluation of the adnexa. COMPARISON: None. FINDINGS: UTERUS: Anteverted. The uterus measures 8.8 x 5.4 cm. There is no uterine mass. The endometrial stripe measures 12 mm in AP diameter which is within normal limits. RIGHT OVARY: Measures 2.4 x 1.9 x 1.8 cm. Non-enlarged, normal echogenicity. There is normal arterial inflow and venous outflow present in the right ovary. LEFT OVARY: Measures 2.2 x 1.6 x 1.7 cm. Non-enlarged, normal echogenicity. There is normal arterial inflow and venous outflow present in the left ovary. FREE FLUID: None. US/Pelvic w/ Transvaginal IMPRESSION: Normal pelvic ultrasound. Electronically Signed: Raz Mahan MD at 20:31 EST ,
== END | disposition home or self-care (01) ==
LOC: US 15:56
PROVIDERS: Referring Provider Nurse Practitioner Women's Health; Visit Provider Nurse Practitioner Women's Health
DX: R10.2 Pelvic and perineal pain (principal)
CPT/HCPCS: 76830; 76856

== ENCOUNTER 2023-10-27 12:00 | Emergency (ER) | payer MEDICAID, SELFPAY ==
[2023-10-27 12:01] VITALS: BP 137/94; PULSE 111; RESP 16; TEMP 36.1; O2SAT 100; BMI 31.8
--- NOTE | 2023-10-27 12:22 | EKG12_ITS ---
Test Reason : CP Blood Pressure : / mmHG Vent. Rate : 071 BPM Atrial Rate : 071 BPM P-R Int : 132 ms QRS Dur : 084 ms QT Int : 382 ms P-R-T Axes : 034 018 026 degrees QTc Int : 415 ms Normal sinus rhythm with sinus arrhythmia Normal ECG Confirmed by Manolo Merritt ([id number]), photography editor AMANDA WATSON ([id number]) on 10/31/2023 10:15:34 AM Referred By: BRISSA/DIXIE Confirmed By:Manolo Merritt
--- NOTE | 2023-10-27 12:23 | EX.ED.DYSGE1 ---
HPI History of Present Illness Chief Complaint: Chest Pain Detail of Chief Complaint: Left chest and breast pain Informant: patient Narrative Narrative: Patient presents with pain in her left chest and breast that started initially 3 to 4 days ago. Pain worse with certain movements at times. Worse with deep breath. She had some discomfort in her left arm today. She is never had pain like this before. She denies recent travel or surgery. Denies recent illness. Denies injury. [facility] Medical History Back pain Contact with and (suspected) exposure to other viral communicable diseases Depression Fibromyalgia normal course Severe headache Sinusitis Vaginal delivery Home Medications ?Medication ?Instructions ?Recorded ?Last Taken ?Type ferrous sulfate 140 mg (45 mg 140 mg PO DAILY 03/04/22 09/22/22 08:00 History iron) tablet,extended release naproxen 500 mg tablet 500 mg PO BID PRN pain #20 tabs 09/25/22 Unknown Rx sertraline 25 mg tablet (Zoloft) 25 mg PO DAILY #90 tabs 12/28/22 Unknown Rx amoxicillin 875 mg-potassium 1 tab PO Q12H #14 tabs 03/01/23 Unknown Rx clavulanate 125 mg tablet dextromethorphan-guaifenesin 10 10 ml PO Q6H PRN cough #500 mL 03/01/23 Unknown Rx mg-100 mg/5 mL oral liquid (Adult Tussin Cough Congestion DM) fluconazole 150 mg tablet 150 mg PO .COMPLEX #2 tabs 04/24/23 Unknown Rx Allergy/AdvReac Type Severity Reaction Status Date / Time No Known Allergies Allergy Verified 10/27/23 12:01 Family History Grandmother Breast cancer Paternal Other Migraines Social History adopted: No household members: significant other housing: house current occupational status: employed current occupation: [employer] current occupational exposures/hazards: No pets and animals: Yes pets and animals: dog(s) history of recent travel: No sexually active: Yes Smoking Status: Never smoker alcohol intake: former details: occasional substance use type: does not use well-balanced diet: about half the time caffeine: Yes Type: carbonated beverages Number of servings: 1 eating out: 1-3 times/week during the past year weight has: remained stable what type of physical activity do you participate in: walking frequency: 1-2 times per week duration: 15-30 minutes/day eveline/jehovah's witness: Mandaeism seatbelt use: always do you feel safe at home: Yes additional social history: Boyfriend- Killian - [employer] ROS ROS ED Review of Systems ROS Unobtainable: other Constitutional Constitutional ED: Reports lethargy; Denies chills, fever(s), sweats or weight loss Eyes Eyes: Denies blurry vision, change in vision or diplopia ENT ENT ED: Denies rhinorrhea or sore throat Cardiovascular Cardiovascular: Reports chest pain; Denies orthopnea or racing heartbeat Respiratory/Chest Respiratory/Chest: Denies cough, dyspnea, dyspnea on exertion, orthopnea or sputum Gastrointestinal Gastrointestinal: Denies abdominal pain, diarrhea, nausea or vomiting Genitourinary Genitourinary ED: Denies dysuria, hematuria or urinary frequency Musculoskeletal Musculoskeletal: Reports other Details: Left breast pain ; Denies arthralgias, back pain, myalgias or neck pain Integumentary Denies abscess, Abrasions or rash Neurologic Neurologic: Denies headache(s) or weakness Psychiatric Psychiatric: Denies anxiety, depression or suicidal thoughts Endocrine Endocrinology: Denies polydipsia, polyphagia or polyuria Hematologic/Lymphatic Hematologic/Lymphatic: Denies easy bleeding, easy bruising or lymphadenopathy Allergic/Immunologic Allergic/Immunologic ED: Denies mouth swelling, tongue swelling or urticaria EXAM Physical Exam Const Vital Signs: 10/27/23 12:01 Temperature 97.0 F L Temperature Source Temporal Pulse Rate 111 H Respiratory Rate 16 Blood Pressure 137/94 H Blood Pressure Mean 108 Pulse Ox 100 Oxygen Delivery Method Room Air Positive well nourished and well developed General Appearance ED: well developed and NAD HEENT Reports TM's clear and moist mucous membranes normocephalic and atraumatic; Negative for trauma or tenderness Tympanic Membrane ED: Yes TM's clear Eyes PERRL and EOMs intact bilaterally General Eye ED: Negative for pale conjunctiva or scleral icterus Neck no lymphadenopathy, supple and no JVD General: Negative for tenderness Chest Wall inspection of chest normal and palpation of chest normal Chest Narrative: Tenderness diffusely about the chest wall on the left side inferior to the breast as well as lateral to breast and medial and superior to the breast. Patient also has tenderness palpation of the breast itself. I do not feel any lumps or masses. There is no erythema or warmth or cellulitic changes Chest: Negative for tenderness Resp normal respiratory effort and clear to auscultation bilaterally Effort and Inspection: Negative for respiratory distress or pain with movement Auscultation: Negative for rhonchi, wheezes or diminished lung sounds Cardio regular rate, regular rhythm, S1 normal heart sound, S2 normal heart sound and no murmurs Peripheral Pulses: pulses 2+ throughout GI normal to inspection, nondistended, normoactive bowel sounds, soft to palpation, non-tender, non-distended and no masses Back/Spine no CVA tenderness and no thoracic nor lumbar tenderness Extremity normal to inspection General Extremety ED: Negative for edema General Extremity: Negative for edema Neuro oriented x3, CN's II-XII intact bilaterally, no sensory deficits noted and gait normal Sensorium / Orientation: awake, alert, oriented to person, oriented to place and oriented to time Motor Exam: strength 5/5 throughout and strength abnormal Psych mental status grossly normal Skin no rashes or lesions noted and no wounds MDM MDM MDM Narrative Medical decision making narrative: Patient presents to the emergency department with left-sided chest pain that she had for 4 days. Seems to be reproducible with palpation of the chest wall and her left breast. No signs of infection on exam. In the differential would be costochondritis versus pleurisy versus pericarditis versus pneumonia or pneumothorax or other acute process. IV line established. CBC with differential white count of 8.8 with hemoglobin 13.6 and platelet count of 349. Chemistries unremarkable. D-dimer normal at 0.38. Troponin was normal less than 3. EKG obtained on arrival showed a sinus rhythm with rate of 71 bpm with no evidence of pericarditis or other acute process. 1 view chest x-ray obtained showed no evidence of infiltrate or pneumothorax or acute disease process. This point she had received Toradol. She does not want a thing more for pain. Does not want any pain medicine for home. Suspect likely chest wall pain. Lab Data Attestation: I reviewed the patient's lab results. Labs: Laboratory Results - last 24 hr 10/27/23 12:20 WBC 8.8 RBC 4.42 Hgb 13.6 Hct 40.5 MCV 91.6 MCH 30.8 MCHC 33.6 RDW Std Deviation 41.8 RDW Coeff of Richard 12.4 Plt Count 349 MPV 10.3 Immature Gran % (Auto) 0.100 Neut % (Auto) 65.1 Lymph % (Auto) 22.0 [place] % (Auto) 8.9 Eos % (Auto) 3.6 Baso % (Auto) 0.3 Absolute Neuts (auto) 5.7 Absolute Lymphs (auto) 1.93 Nucleated RBC % 0 D-Dimer Quant (PE/DVT) 0.38 Sodium 136 Potassium 3.9 Chloride 108 H Carbon Dioxide 24.0 Anion Gap 4 L BUN 11 Creatinine 0.73 Estim Creat Clear Calc 106.76 Est GFR (MDRD) Af Amer 125 Est GFR (MDRD) Non-Af 104 BUN/Creatinine Ratio 15.1 Glucose 92 Calcium 9.4 Troponin I High Sens < 3 L Radiography Diagnostic Testing: Clinical Impression(s) from Imaging Studies Chest X-Ray 10/27/23 12:50 IMPRESSION: Normal x-ray examination of the chest. Electronically Signed: Cesar Frankel MD at 13:01 EDT , 1 view chest x-ray obtained interpreted by myself as no evidence of infiltrate or pneumothorax or acute disease process. Radiology in agreement. EKG Initial EKG: Attestation: I personally reviewed and interpreted this EKG as follows: Comments: Sinus rhythm with rate of 71 bpm with no acute ST segment changes Discharge Plan Triage Chief Complaint: Chest Pain ED Provider: Kira Shaver Dx/Rx/DC Orders Clinical Impression: Acute chest wall pain Instructions: ED Chest Pain, Uncertain Cause, ED Chest Wall Pain, Costochondritis Prescriptions: No Action ferrous sulfate 140 mg (45 mg iron) tablet extended release 140 mg PO DAILY amoxicillin-pot clavulanate 875-125 mg tablet 1 tab PO Q12H Qty: 14 0RF dextromethorphan-guaifenesin [Adult Tussin Cough Congest DM] 10-100 mg/5 mL liquid 10 ml PO Q6H PRN (Reason: cough) Qty: 500 0RF naproxen 500 mg tablet 500 mg PO BID PRN (Reason: pain) Qty: 20 0RF sertraline [Zoloft] 25 mg tablet 25 mg PO DAILY Qty: 90 3RF fluconazole 150 mg tablet 150 mg PO .COMPLEX Qty: 2 0RF Rx Instructions: 150 mg PO take one po now and repeat in 3 days Primary Care Provider: Care Physician,No Primary Referrals: Daniel Rasmussen MD [Med Staff - Active Staff] - 3-5 Days Care Physician,No Primary [Primary Care Provider] - Print Language: Citizen Of [place] Disposition Disposition: Home, Self Care
[2023-10-27 12:35] LABS: Absolute Lymphocyte Count 1.93 X10^3/uL (0.83-4.51); Absolute Neutrophil Count 5.7 X10^3/uL (2.0-7.7); Basophil# 0.03 X10^3/uL; Basophil% 0.3 % (0-1); Eosinophil# 0.32 X10^3/uL; Eosinophils% 3.6 % (0-5); Hematocrit 40.5 % (37-47); Hemoglobin 13.6 g/dL (12.0-15.0); Lymphocyte # 1.93 X10^3/ul (0.83-4.51); Mean Corp Hgb Conc 33.6 g/dL (32-36); Mean Corpuscular Hgb 30.8 pg (27.0-32.0); Mean Corpuscular Volume 91.6 fL (81-99); Mean Platelet Vol. 10.3 fl (6.2-12.0); Monocyte# 0.78 X10^3/uL; Monocyte% 8.9 % (0-10); NRBC Flagged by Analyzer 0 % (0-5); Neutrophil # 5.71 X10^3/uL (2.7-7.7); Neutrophil % 65.1 % (47-70); Platelet Count 349 K/mm3 (150-450); RBC Distribution Width CV 12.4 % (11.6-14.6); RBC Distribution Width SD 41.8 fl (35.1-43.9); Red Blood Count 4.42 M/mm3 (4.2-5.4); White Blood Count 8.8 K/mm3 (4.4-11.0)
--- NOTE | 2023-10-27 12:50 | RAD_ITS ---
STUDY: X-RAY CHEST REASON FOR EXAM: Female, 23 years old. Left chest/breast pain TECHNIQUE: PA and lateral views of the chest. COMPARISON: None. FINDINGS: The lungs are clear and expanded. There is no demonstrated pleural abnormality. Normal size heart. Normal mediastinum and german. Normal visualized pulmonary arteries. Normal visualized aortic arch and descending thoracic aorta. Normal visualized thoracic spine. Normal visualized ribs, clavicles, and shoulders. There is no demonstrated abnormality of the visualized soft tissue structures of the upper abdomen. RAD/Chest PA and Lateral IMPRESSION: Normal x-ray examination of the chest. Electronically Signed: Cesar Frankel MD at 13:01 EDT ,
[2023-10-27 12:51] LABS: D-Dimer Quantitative (DVT/PE) 0.38 FEU/ug/m (0.27-0.49)
[2023-10-27 12:54] LABS: Anion Gap 4 (5-15); BUN 11 mg/dL (7-18); BUN/Creat Ratio 15.1 RATIO (10-20); Calcium,Total 9.4 mg/dL (8.5-10.1); Chloride 108 mmol/L (98-107); Creatinine, Serum 0.73 mg/dL (0.55-1.02); EST Glomerular Filtration Rate 104 mL/min (>60); Est Glom Filt Rate - Afr Amer 125 mL/min (>60); Estimated Creatinine Clearance 106.76 ml/min; Glucose 92 mg/dL (74-106); Potassium 3.9 mmol/L (3.5-5.1); Sodium Level 136 mmol/L (136-145); Troponin-I HS < 3 pg/mL (3.0-54.0)
[2023-10-27] MEDS: Ketorolac 30 MG/ML Syringe IV (13:01)
[2023-10-27] MEDS: 0.9% Normal Saline (1000mL) 1,000 ML 150 ML IV (13:01)
--- NOTE | 2023-10-27 13:06 | NURSING ---
NO OLD EKGS
--- NOTE | 2023-10-27 13:07 | NURSING ---
NO OLD EKGS
[2023-10-27 13:25] VITALS: BP 115/77; PULSE 80; RESP 16; TEMP 36.8; O2SAT 97
== END 2023-10-27 13:26 | disposition home or self-care (01) ==
PROVIDERS: Emergency Provider Emergency Medicine; Visit Provider Emergency Medicine
DX: R07.89 Other chest pain (principal); N64.4 Mastodynia
CPT/HCPCS: 71046; 80048; 84484; 85025; 85379; 93005; 96374; 99283; J7030

== ENCOUNTER → 2024-04-03 | Outpatient (CLI) | payer MEDICAID, SELFPAY ==
--- OUTSIDE RECORDS SUMMARY | 2024-04-03 13:54 | XMS RPT_ITS | CCD ---
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 Name Role Phone NO PRIMARY CARE, Primary Care Unavailable TIFFANIE TAMEZ Attending Unavailable TODD PEREIRA Referring Unavailab le Unavailable Primary Care Provider LIA Dominguez Attending Unavailable YUDY MATTHEWS DO Attending Unavailable YUDY MATTHEWS DO Primary Care Unavailable YUDY MATTHEWS DO Admitting Unavailable ALMAZ GORDON Attending Unavailable CHAVA EL Attending Unavailable Medications Completed/Discontinued Medications Medication Drug Class(es) Dates Sig (Normalized) Sig (Original) proparacaine hydrochloride 5 mg/ml ophthalmic solution (1 source) Local Anesthetic Start: 02-15-2023 End: 02-15-2023 proparacaine 0.5 % 1 Drop (ALCAINE) sertraline 25 mg oral tablet (1 source) Serotonin Reuptake Inhibitor Start: 12-28-2022 sertraline (ZOLOFT) 25 mg tablet tropicamide 10 mg/ml ophthalmic solution (1 source) Anticholinergic Start: 02-15-2023 End: 02-15-2023 tropicamide 1 % 1 Drop (MYDRIACYL) Problems Problem Classification Problem Date Documented Da te Episodic/Chronic Blindness and vision defects (3 sources) Suspected amblyopia of left eye; Translations: [Amblyopia suspect, left eye] 02-15-2023 Episodic Results Test Name Value Interpretation Reference Range Facil ity EMERGENCY REPORTon EMERGENCY REPORT [facility] EMERGENCY ROOM REPORT NAME ACCOUNT SEX AGE ADMIT DISCHARGE PT MED. RECORD# NUMBER DATE DATE TYPE PATTI [id number] F 23 06/19/23 06/19/23 3 PENNYNANCY Eric [id number] ROOM: ER DATE OF : 2000 DICTATING PHYSICIAN: Yudy Matthews CHIEF COMPLAINT: Fever, cough, runny nose, sore throat, and body aches. HISTORY OF PRESENT ILLNESS: This is a 23-year-old female with a fever, cough, runny nose, body aches, and mild sore throat. She says this started last Tuesday morning. She has not had a flu shot. No known ill contacts. Cough has been nonproductive. No chest pain or shortness of breath. No significant abdominal pain. No nausea or vomiting or diarrhea. She had a fever with a T-MAX of 102.1. She has been taking Tylenol as needed for fever, aches, and pain. She does complain of a mild sore throat. She says initially it was worse when it first started, but it seems to improving now. No difficulty swallowing. No dysuria, urgency, or frequency. No unusual rash. PAST MEDICAL HISTORY: Denied. PAST SURGICAL HISTORY: Denied. ALLERGIES: No medication allergies. FAMILY HISTORY: Denied. SOCIAL HISTORY: No tobacco. No alcohol. No drugs. REVIEW OF SYSTEMS: A complete review of systems is otherwise negative except as noted above. PHYSICAL EXAMINATION: VITAL SIGNS: Temperature 99.1, pulse 116/77, respiratory rate 18 and unlabored, and pulse oximetry is 97%. Pulse in triage was 109 and at my exam it is right around 100 beats per minute. HEENT: Head is normocephalic and atraumatic. Mucous membranes are pink, moist, and intact. Minimal posterior pharyngeal erythema. No exudates. Phonation is grossly normal. No hot potato voice. No drooling or trismus. NECK: Neck revealed no adenopathy. It is supple. HEART: Regular and tachycardic. No murmur, click, gallop, or rub. LUNGS: Clear to auscultation. No rales, rhonchi, or wheeze. No accessory muscle respiration use. No conversational dyspnea. ABDOMEN: Soft and nontender. EXTREMITIES: Reveal no cyanosis, clubbing, or edema. No calf pain or tenderness. EMERGENCY DEPARTMENT COURSE AND TREATMENT: Clinically, I think she Page 1 of 2 GRANT ARMSTRONG Emergency Room Report GRANT ARMSTRONG : 2000 probably has the flu. However, she is tachycardic. We are getting some basic laboratories and a chest x-ray. We will test for influenza A and B, as well as COVID-19, RSV, and rapid strep. Dictated By: Yudy Matthews DO 06/19/23 09:36 JOB #: [id number] Transcribed By: am 06/20/23 07:05 Electronically signed by: Dr. Yudy Matthews DO 06/30/23 08:36 Page 2 of 2 GRANT ARMSTRONG Emergency Room Report Normal [facility] EMERGENCY REPORT [facility] EMERGENCY ROOM REPORT NAME ACCOUNT SEX AGE ADMIT DISCHARGE PT MED. RECORD# NUMBER DATE DATE TYPE PATTI [id number] F 23 06/19/23 06/19/23 3 GRANT Reyes [id number] ROOM: ER DATE OF : 2000 DICTATING PHYSICIAN: Yudy Matthews ADDENDUM: CHIEF COMPLAINT: Cough, fever, body aches, and sore throat. DIAGNOSTIC DATA: Testing has returned. CBC is normal. BMP is normal. Rapid strep testing was negative. Influenza A testing is positive for influenza A and negative for influenza B. Coronavirus testing is negative. Chest x-ray, 2 view study, interpreted by me, showed no infiltrate, effusion, or pneumothorax. No acute cardiopulmonary process. PLAN/DISPOSITION: The patient has influenza A. She will be discharged home. She may take Tylenol or ibuprofen as needed for fever, aches, or pain. She is to push clear fluids, cough medicine [id number] as needed. She is to followup with primary care physician in 3 to 5 days as needed, sooner if worse or return. Dictated By: Yudy Matthews DO 06/19/23 10:00 JOB #: [id number] Transcribed By: am 06/20/23 07:17 Electronically signed by: Dr. Yudy Matthews DO 06/30/23 08:36 Page 1 of 1 GRANT ARMSTRONG Emergency Room Report Normal [facility] BMP with eGFRon 06-19-2023 AGE 23 years Normal [facility] Comment on above: Performed By: #### 2 [id number] #### [facility],[address] [place] [address] Anion gap [Moles/Vol] 16 mmol/L Normal 10 - 20 [facility] Comment on above: Performed By: #### 2 51102 #### [facility],[address] [place] [address] 27599 BMP with eGFR Normal [facility] Comment on above: Result Comment: DEDRA C METABOLIC PANEL Performed By: #### 2 13411 #### [facility],[address] [place] [address] 00679 Calcium [Mass/Vol] 8.9 mg/dL Normal 8.5 - 10.1 [facility] Comment on above: Performed By: #### 2 88849 #### [facility],[address] [place] [address] 92320 Chloride [Moles/Vol] 100 mmol/L Normal 98 - 107 [facility] Comment on above: Performed By: #### 2 40502 #### [facility],[address] [place] [address] 21865 CO2 [Moles/Vol] 22.4 mmol/L Normal 21.0 - 32.0 [facility] Comment on above: Performed By: #### 2 07774 #### [facility],[address] [place] [address] 91718 Creatinine [Mass/Vol] 0.72 mg/dL Normal 0.55 - 1.02 [facility] Comment on above: Performed By: #### 2 96448 #### [facility],[address] [place] [address] 15603 GFR/1.73 sq M.predicted among non-blacks MDRD (S/P/Bld) [Vol rate/Area] mL/min/{1.73_m2} Normal 60 - 999 [facility] Comment on above: Performed By: #### 2 86129 #### [facility],[address] [place] [address] 52198 Result Comment: ACCO RDING TO THE NATIONAL KIDNEY DISEASE EDUCATION PROGRAM(NKDE), A NORMAL eGFR IS A VALUE GREATER THAN OR EQUAL TO 60 ML/MIN/1.73 SQ METERS. CHRONIC KIDNEY DISEASE: <60mL/MIN/1.73 SQ METERS KIDNEY FAILURE: <15mL/MIN/1.73 SQ METERS THIS TEST SHOULD ONLY BE USED FOR PATIENTS 18 YEARS OF AGE AND OLDER. Glucose [Mass/Vol] 99 mg/dL Normal 74 - 106 [facility] Comment on above: Performed By: #### 2 85397 #### [facility],[address] [place] [address] 83100 Potassium [Moles/Vol] 3.6 mmol/L Normal 3.5 - 5.1 [facility] Comment on above: Performed By: #### 2 11236 #### [facility],[address] [place] [address] Sodium [Moles/Vol] 135 mmol/L Low 136 - 145 [facility] Comment on above: Performed By: #### 2 47781 #### [place] [id number] Urea nitrogen [Mass/Vol] 10 mg/dL Normal 7 - 18 [facility] Comment on above: Performed By: #### 2 56605 #### [facility],[address] [place] [address] 25793 CBC + DIFFon 06-19-2023 Baso # 0.00 x10EE3/UL Normal 0.00 - 0.10 [facility] Comment on above: Performed By: #### 2 41277 #### [facility],[address] [place] [address] 40836 Basophils/100 WBC (Bld) 0.3 % Normal 0.0 - 2.0 [facility] Comment on above: Performed By: #### 2 75513 #### [facility],[address] [place] [address] 84930 CBC + DIFF Normal [facility] Comment on above: Result Comment: CBC- COMPLETE BLOOD COUNT Performed By: #### 2 73204 #### [facility],[address] [place] [address] 31293 EO # 0.00 x10EE3/UL Normal 0.00 - 0.50 [facility] Comment on above: Performed By: #### 2 32823 #### [facility],[address] [place] [address] 90218 Eosinophils/100 WBC (Bld) 0.0 % Normal 0.0 - 7.0 [facility] Comment on above: Performed By: #### 2 11195 #### [facility],[address] [place] [address] Erythrocyte distribution width (RBC) [Ratio] 12.7 % Normal 12.0 - 15.6 [facility] Comment on above: Performed By: #### 2 24068 #### [facility],[address] [place] [address] Hematocrit (Bld) [Volume fraction] 38.0 % Normal 34.0 - 46.0 [facility] Comment on above: Performed By: #### 2 80537 #### [facility],[address] [place] [address] Hemoglobin (Bld) [Mass/Vol] 12.7 g/dL Normal 12.0 - 16.0 [facility] Comment on above: Performed By: #### 2 65177 #### [facility],[address] [place] [address] 71944 Lymph # 0.40 x10EE3/UL Low 0.80 - 2.80 [facility] Comment on above: Performed By: #### 2 93705 #### [facility],[address] [place], [place] [id number] Lymphocytes/100 WBC (Bld) 5.4 % Low 20.0 - 45.0 [facility] Comment on above: Performed By: #### 2 14858 #### [facility],[address] [place] [address] 04061 MANUAL DIFF N/A Normal [facility] Comment on above: Performed By: #### 2 27162 #### [facility],[address] [place] [address] MCH (RBC) [Entitic mass] 31 pg Normal 27 - 33 [facility] Comment on above: Performed By: #### 2 69085 #### [facility],[address] [place] [address] MCHC 34 X10 3 Normal 32 - 36 [facility] Comment on above: Performed By: #### 2 75561 #### [facility],[address] [place] [address] MCV (RBC) [Entitic vol] 91 fL Normal 80 - 99 [facility] Comment on above: Performed By: #### 2 48113 #### [facility],[address] [place] [address] [place] # 0.90 x10EE3/UL Normal 0.20 - 1.00 [facility] Comment on above: Performed By: #### 2 49337 #### [facility],[address] [place] [address] MONOS % 12.8 % High 0.0 - 10.0 [facility] Comment on above: Performed By: #### 2 38455 #### [facility],[address] [place] [address] Morphology Ko (Bld) [Interp] N/A Normal [facility] Comment on above: Result Comment: {CD] Performed By: #### 2 81306 #### [facility],[address] [place] [address] Neut # 6.00 x10EE3/UL Normal 1.50 - 7.10 [facility] Comment on above: Performed By: #### 2 10192 #### [facility],[address] [place] [address] Neutrophils/100 WBC (Bld) 81.5 % High 46.0 - 76.0 [facility] Comment on above: Performed By: #### 2 73358 #### [address],[place] [address] PLATELET 213 x10EE3/UL Normal 150 - 450 [facility] Comment on above: Performed By: #### 2 00569 #### [facility],[address] [place] [address] 56770 Platelet mean volume (Bld) [Entitic vol] 9.1 fL Normal 6.6 - 10.5 [facility] Comment on above: Result Comment: AUTO MATED DIFFERENTIAL Performed By: #### 2 02393 #### [facility],[address] [place] [address] 15856 RBC 4.18 x 10EE6/UL Normal 4.10 - 5.30 [facility] Comment on above: Performed By: #### 2 53263 #### [facility],[address] [place] [address] 62749 WBC 7.3 x 10EE3/UL Normal 4.5 - 10.8 [facility] Comment on above: Performed By: #### 2 28492 #### [facility],[address] [place] [address] 16127 CHEST 2 VIEWSon 06-19-2023 CHEST 2 VIEWS [place] [address] Patient: GRANT ARMSTRONG Phone#: : 2000 Age: 23 Gender: F Pt. Type: ER Account: [id number] Location: [facility] Ordering: YUDY CSERNYIK Exam Date: 06/19/2023/9:13 Family Phys: Charge Code: [id number] Physician: [place] Order #: [id number] Dose#: PROCEDURE: X-RAY CHEST 2 VIEWS COMPARISON: None. INDICATIONS: Cough. FINDINGS: LUNGS: Normal. No significant pulmonary parenchymal abnormalities. VASCULATURE: Normal. Unremarkable pulmonary vasculature. CARDIAC: Normal. No cardiac silhouette abnormality or cardiomegaly. MEDIASTINUM: Normal. No visible mass or adenopathy. PLEURA: Normal. No effusion or pleural thickening. BONES: Normal. No fracture or visible bony lesion. OTHER: Negative. CONCLUSION: No acute disease. Dictated by: Joleen Orellana MD on 06/19/2023 at 16:38 Approved by: Joleen Orellana MD on 06/19/2023 at 16:39 Normal [facility] CORONAVIRUS (SARS) ANTIGEN T ESTon 06-19-2023 EXTERNAL QC DONE? YES Normal [facility] Comment on above: Performed By: #### 2 88587 #### [facility],[address] [place] [address] INTERNAL CONTROL PASS Normal [facility] Comment on above: Performed By: #### 2 34754 #### [facility],[address] [place] [address] SARS ANTIGEN Negative Normal NORMAL: NEGATIVE [facility] Comment on above: Performed By: #### 2 43789 #### [facility],[address] [place] [address] SEND TO ? YES Normal [facility] Comment on above: Result Comment: SARS -CoV-2 THIS TEST IS BEING USED UNDER THE FDA EUA PROCEDURE. THIS ASSAY HAS BEEN VALIDATED AT [facility] FOR USE WITH NASAL AND NASOPHARYNGEAL SWAB SPECIMENS. INTERPRETIVE DATA TEST RESULTS SHOULD ALWAYS BE CONSIDERED IN THE CONTEXT OF CLINICAL OBSERVATIONS AND EPIDEMIOLOGICAL DATA IN MAKING FINAL DIAGNOSIS AND PATIENT MANAGEMENT DECISIONS. PATIENT MANAGEMENT SHOULD FOLLOW CURRENT CDC GUIDELINES. THE MICHAEL SARS ANTIGEN JEREMY DOES NOT DIFFERENTIATE BETWEEN SARS-CoV & SARS-CoV-2. A POSITIVE TEST RESULT INDICATES THE PRESENCE OF SARS-CoV-2 NUCLEOCAPSID PROTEIN ANTIGEN, AND THE PATIENT IS INFECTED WITH THE VIRUS AND PRESUMED TO BE CONTAGIOUS. A NEGATIVE TEST RESULT FOR THIS TEST MEANS THAT SARS-CoV-2 NUCLEOCAPSID PROTEIN ANTIGEN WAS NOT PRESENT IN THE SPECIMEN ABOVE THE LIMIT OF DETECTION. HOWEVER, A NEGATIVE RESULT DOES NOT RULE OUT COVID-19 AND SHOULD NOT BE USED THE SOLE BASIS FOR TREATMENT OR PATIENT MANAGEMENT DECISIONS. A NEGATIVE RESULT DOES NOT EXCLUDE THE POSSIBILITY OF COVID-19. NEGATIVE RESULTS, FROM PATIENTS WITH SYMPTOM ONSET BEYOND FIVE DAYS, SHOULD BE TREATED PRESUMPTIVE AND CONFIRMATION WITH A MOLECULAR ASSAY, IF NECESSARY, FOR PATIENT MANAGEMENT, MAY BE PERFORMED. WHEN DIAGNOSTIC TESTING IS NEGATIVE, THE POSSIBLILTY OF A FALSE NEGATIVE RESULT SHOULD BE CONSIDERED IN THE CONTEXT OF A PATIENT'S RECENT EXPOSURES AND THE PRESENCE OF CLINICAL SIGNS AND SYMPTOMS CONSISTENT WITH COVID-19. THE POSSIBILITY OF A FALSE NEGATIVE RESULT SHOULD ESPECIALLY BE CONSIDERED IF THE PATIENT'S RECENT EXPOSURES OR CLINICAL PRESENTATION INDICATE THAT COVID-19 IS LIKELY, AND DIAGNOSTIC TESTS FOR OTHER CAUSES OF ILLNESS (e.g., OTHER RESPIRATORY ILLNESS) ARE NEGATIVE. IF COVID-19 IS STILL SUSPECTED BASED ON EXPOSURE HISTORY TOGETHER WITH OTHER CLINICAL FINDINGS, RE-TESTING SHOULD BE CONSIDERED BY HEALTHCARE PROVIDERS IN CONSULTATION WITH PUBLIC HEALTH AUTHORITIES. Performed By: #### 2 62005 #### [place] [id number] CULT STREP REFLEX ONLYon CULT STREP REFLEX ONLY CULT STREP REFLEX ONLY _REFLEX STREP SCREEN CULTURE ONLY_ 06/22/23.1006.DNP.COMP LETE [facility] Comment on above: Performed By: #### 2 06459 #### [facility],[address] [place] [address]1047 INFLUENZA VIRUS RAPID A/Bon 06-19-2023 INFLUENZA VIRUS RAPID A/B INFLUENZA A POSITIVE INFLUENZA B NEGATIVE INTERNAL NEG QC PASS INTERNAL POS QC PASS EXTERNAL QC DONE? YES SEND TO IC? YES A NEGATIVE TEST RESULT DOES NOT EXCLUDE INFECTION WITH INFLUENZA A OR B. THEREFORE, THE RESULTS OBTAINED FROM THIS FLU TEST SHOULD BE USED IN CONJUCTION WITH CLINICAL FINDINGS TO MAKE AN ACCURATE DIAGNOSIS. A POSITIVE RESULT DOES NOT RULE OUT CO-INFECTIONS WITH OTHER PATHOGENS OR IDENTIFY ANY SPECIFIC INFLUENZA A VIRUS SUBTYPE.CO-INFECTION WITH INFLUENZA A AND B IS RARE. IT IS RECOMMENDED THAT DUAL POSITIVE RESULTS BE CONFIRMED BY VIRAL CULTURE OR AN FDA-CLEARED INFLUENZA A AND B MOLECULAR ASSAY. INDIVIDUALS WHO HAVE RECEIVED NASALLY ADMINISTERED INFLUENZA A VACCINE MAY TEST POSITIVE IN COMMERCIALLY AVAILABLE INFLUENZA RAPID DIAGNOSTIC TESTS FOR UP TO THREE DAYS. RESULT CRITICAL? YES { CALLED TO LUIS BY LARS @ 0955 { READ BACK BY LUIS RA 0955 [facility] Comment on above: Performed By: #### 2 45709 #### [address] [address] RAPID STREPon 06-19-2023 S. pyogenes Ag IA Ql (Unsp spec) Rapid Strep NEG:GRP A STREP INTERNAL QC PASS EXTERNAL QC DONE? YES Normal [facility] Comment on above: Performed By: #### 2 30224 #### [facility],[address] [place] [address] RSVon 06-19-2023 RSV RSV NEGATIVE TEST INTENDED FOR PATIENTS UNDER 5 YEARS INTERNAL NEG QC PASS INTERNAL POS QC PASS EXTERNAL QC DONE? YES Normal [facility] Comment on above: Performed By: #### 2 68066 #### [facility],[address] [place] [address] Encounters Encounter Date Encounter Type Care Provider Facility Start: 02-15-2024 End: 02-15-2024 ambulatory ALMAZ GORDON [facility] Start: 12-22-2023 End: 12-22-2023 ambulatory CHAVA EL [facility] Start: 06-19-2023 End: 06-19-2023 Emergency department patient visit YUDY FIGUEROA [facility] Start: 02-15-2023 End: 02-15-2023 ambulatory LIA ALEXANDRA Facility:[facility] Start: 02-15-2023 End: 02-15-2023 Patient encounter procedure Lia Alexandra OD Work Phone: Ophthalmology Comment on above: Amblyopia suspect, l eft eye (Primary Dx); Anisometropia; Accommodative insufficiency Start: 05-11-2022 End: 05-11-2022 ambulatory MD NO PRIMARY CARE [facility] Plan of Treatment Date Care Activity Detail Author Start: 02-11-2023 Influenza vaccination INFLUENZA (#1) [facility] Start: 06-13-2022 DEPRESSION ASSESSMENT DEPRESSION ASS ESSMENT [facility] Start: 2020 PAP TESTING PAP TESTING [facility] Start: 2018 Urine microalbumin profile DTAP,TDAP ,TD (1 - Tdap) [facility] Start: 2017 CHLAMYDIA SCREENING (18-) CHLAMYDIA SCREENING (18-24) [facility] Start: 2017 GC (GONORRHEA) SCREE GETACHEW (18-) GC (GONORRHEA) SCREENING (18-) [facility] Start: 2017 HEPATITIS C SCREENING HEPATITIS C SC REENING [facility] Start: 2017 HIV SCREENING HIV SCREENING [facility] Start: 2013 PEDS TO ADULT TRANSI TION ANNUAL ASSESSMENT PEDS TO ADULT TRANSITION ANNUAL ASSESSMENT [facility] Start: 2011 PEDS TO ADULT TRANSI TION INITIAL DISCUSSION PEDS TO ADULT TRANSITION INITIAL DISCUSSION [facility] Start: 2008 HPV VACCINE (1 - 2-d ose series) HPV VACCINE (1 - 2-dose series) [facility] Start: 1999 COVID-19 VACCINE (#1) COVID-19 VACCI NE (#1) [facility] Start: 1999 HEPATITIS B (1 of 3 - 3-dose series) HEPATITIS B (1 of 3 - 3-dose series) [facility] Payers Date Payer Category Payer Medicaid [id number] 2022 Medicaid [facility] [id number] 2022-Present [phone] [address] [place] [address] Medicaid [id number] 2000 Unknown [id number] 2000 Unknown [id number] 1999 Unknown [id number] 2000 Unknown [id number] Social History Date Type Detail Facility [facility]: [facility] Start: 02-15-2023 Tobacco use and exposure Smoke less tobacco non-user [facility] Start: 02-15-2023 History of Social function [facility] Start: 02-15-2023 Tobacco use panel [facility] National Score (1-10 0), lower number is lower risk 50 [facility] Start: 2000 Sex Assigned At Not on file [facility] Progress note 02-15-2023 Note Date & Type Note Facility 02-15-2023 Note HNO ID: [id number] Author: Lia Alexandra, SCAR Service: ? Author Type: [employer]PERINTENDENT Type: Progress Notes Filed: 02/15/2023 3:54 PM Note Text: 1. Amblyopia suspect, left eye 2. Anisometropia 3. Accommodative insufficiency BCVA: 20/30+ left eye Patient has +0.75 anisometropia Unsure if vision has always been reduced left eye? No history of patching + hx of bifocal use Finalized spec rx Okay to continue with current glasses Good ocular health Follow-up in 1 year or sooner as needed Lia Alexandra, SCAR February 15, 2023 3:53 PM [facility] History of Present illness Narrative 02-15-2023 Lia Alexandra, OD - 02/15/2023 3:53 PM EDT Note Date & Type Note Facility 02-15-2023 History of Presen t illness Narrative 1. Amblyopia suspect, left eye 2. Anisometropia 3. Accommodative insufficiency BCVA: 20/30+ left eye Patient has +0.75 anisometropia Unsure if vision has always been reduced left eye? No history of patching + hx of bifocal use Finalized spec rx Okay to continue with current glasses Good ocular health Follow-up in 1 year or sooner as needed Lia Alexandra, SCAR February 15, 2023 3:53 PM documented in this encounter [facility] Evaluation note Note Date & Type Note Facility Evaluation note Diagnosis Amblyopia suspect, left eye- Primary Anisometropia Accommodative insufficiency Presbyopia documented in this encounter [facility] Summary Purpose Family History No Family History Records FoundNo Family History Records FoundNo Family History Records FoundNo Family History Records Found Advance Directives No Advanced Directives Records FoundNo Advanced Directives Records FoundNo Advanced Directives Records FoundNo Advanced Directives Records Found Medications Administered Section Inactive Administered Medications - up to 3 most recent administrations Medication Order MAR Action Action Date Dose Rate Site proparacaine 0.5 % 1 Drop (ALCAINE) 1 Drop, BOTH EYES, ONCE, 1 dose, On Tue02/15/23 at 1530, FOR THE EYE Given 02/15/2023 3:30 PM EDT 1 Drop tropicamide 1 % 1 Drop (MYDRIACYL) 1 Drop, BOTH EYES, ONCE, 1 dose, On Tue02/15/23 at 1530, FOR THE EYE Given 02/15/2023 3:30 PM EDT 1 Drop Additional Source Comments INFORMATION SOURCE (unrecogn ized section and content) DATE CREATED AUTHOR 05/12/2022 [facility] DATE CREATED AUTHOR AUTHOR'S ORGANIZ ATION 02/16/2023 [facility] DATE CREATED AUTHOR AUTHOR'S ORGANIZ ATION 07/01/2023 [facility] DATE CREATED AUTHOR AUTHOR'S ORGANIZ ATION 02/16/2024 [facility] Source Comments (unrecognize d section and content) In the event this informatio n is protected by the Federal Confidentiality of Alcohol and Drug Abuse Patient Records regulations: The Federal rules restrict any use of the information to criminally investigate or prosecute any alcohol or drug abuse patient.[facility] Reason for Visit (unrecogniz ed section and content) Reason Comments Comprehensive Eye Exam FOR RECORDS PERTAINING TO PATIENTS WHO ARE OR HAVE BEEN ENROLLED IN A CHEMICAL DEPENDENCY/SUBSTANCEABUSE PROGRAM, SOME INFORMATION MAY BE OMITTED. This clinical summary was aggregated from multiple sources. Caution should be exercised in using it in the provision of clinical care. This summary normalizes information from multiple sources, and as a consequence, information in this document may materially change the coding, format and clinical context of patient data. In addition, data may be omitted in some cases. CLINICAL DECISIONS SHOULD BE BASED ON THE PRIMARY CLINICAL RECORDS. [facility]. provides no warranty or guarantee of the accuracy or completeness of information in this document.
[2024-04-03 14:50] LABS: Vitamin D,25 Hydroxy 55.1 ng/mL
[2024-04-03 14:55] LABS: T4 Free Direct 0.81 ng/dL (0.76-1.46)
[2024-04-05 13:08] LABS: Thyroid Peroxidase AB 17 IU/mL (0-34)
[2024-04-11 13:08] LABS: HPV APTIMA, High Risk Negative (Negative)
== END | disposition home or self-care (01) ==
LOC: WOBLAB 13:18
PROVIDERS: Referring Provider Nurse Practitioner Women's Health; Visit Provider Nurse Practitioner Women's Health
DX: R53.83 Other fatigue (principal); Z13.21 Encounter for screening for nutritional disorder; R87.610 Atypical squamous cells of undetermined significance on cytologic smear of cervix (ASC-US); R87.810 Cervical high risk human papillomavirus (HPV) DNA test positive; Z12.4 Encounter for screening for malignant neoplasm of cervix; Z13.29 Encounter for screening for other suspected endocrine disorder
CPT/HCPCS: 36415; 82306; 84439; 84443; 86376; 87624; 88175; G0145

== ENCOUNTER → 2024-07-06 | Outpatient (CLI) | payer MEDICAID, SELFPAY ==
[2024-07-10 00:07] LABS: Chlamydia By Nucleic Acid AMP Negative (Negative); Gonococcus By Nucleic Acid AMP Negative (Negative)
== END | disposition home or self-care (01) ==
LOC: LABSPEC 15:30
PROVIDERS: Referring Provider Advanced Practice Midwife; Visit Provider Advanced Practice Midwife
DX: Z34.90 Encounter for supervision of normal pregnancy, unspecified, unspecified trimester (principal); Z3A.00 Weeks of gestation of pregnancy not specified
CPT/HCPCS: 87086; 87088; 87491; 87591

== ENCOUNTER → 2024-07-10 | Outpatient (CLI) | payer MEDICAID, SELFPAY ==
[2024-07-10 16:31] LABS: Absolute Neutrophil Count 7.6 X10^3/uL (2.0-7.7); Basophil# 0.02 X10^3/uL; Basophil% 0.2 % (0-1); Hematocrit 38.8 % (37-47); Hemoglobin 12.8 g/dL (12.0-15.0); Lymphocyte % 14.7 % (19-41); Mean Corpuscular Hgb 30.3 pg (27.0-32.0); Mean Corpuscular Volume 91.7 fL (81-99); Mean Platelet Vol. 11.2 fl (6.2-12.0); Monocyte# 0.88 X10^3/uL; Monocyte% 8.6 % (0-10); NRBC Flagged by Analyzer 0 % (0-5); Neutrophil # 7.58 X10^3/uL (2.7-7.7); Neutrophil % 74.2 % (47-70); Platelet Count 349 K/mm3 (150-450); RBC Distribution Width CV 12.8 % (11.6-14.6); Red Blood Count 4.23 M/mm3 (4.2-5.4); White Blood Count 10.2 K/mm3 (4.4-11.0)
[2024-07-10 17:22] LABS: HIV - WCH Non-Reactive (Nonreactive); Hepatitis B Surface Antigen Non-Reactive (Nonreactive); Hepatitis C Antibody Non-Reactive (Nonreactive); Rubella IgG Reactive (Nonreactive); Syphilis Antibodies Non-reactive
== END | disposition home or self-care (01) ==
LOC: BWCLAB 14:14
PROVIDERS: Referring Provider Advanced Practice Midwife; Visit Provider Advanced Practice Midwife
DX: O99.210 Obesity complicating pregnancy, unspecified trimester (principal); Z3A.00 Weeks of gestation of pregnancy not specified
CPT/HCPCS: 83036; 85025; 86703; 86762; 86780; 86803; 86850; 86900; 86901; 87340

== ENCOUNTER 2024-10-16 14:37 | Emergency (ER) | payer MEDICAID, SELFPAY ==
[2024-10-16 14:40] VITALS: BP 123/85; PULSE 89; RESP 18; TEMP 36.3; O2SAT 99; BMI 33.9
[2024-10-16 14:59] VITALS: BP 101/67; BP 113/76; PULSE 82; PULSE 86
[2024-10-16] MEDS: 0.9% Normal Saline (1000mL) 1,000 ML 999 ML IV (15:09)
[2024-10-16 15:28] LABS: International Normalized Ratio 0.9; Partial Thromboplast Time 26.6 Seconds (24.1-36.2); Prothrombin Time (Protime)PT. 12.8 SECONDS (11.7-14.9)
[2024-10-16 15:30] LABS: Absolute Lymphocyte Count 1.75 X10^3/uL (0.83-4.51); Absolute Neutrophil Count 10.8 X10^3/uL (2.0-7.7); Basophil# 0.03 X10^3/uL; Basophil% 0.2 % (0-1); Eosinophil# 0.22 X10^3/uL; Eosinophils% 1.6 % (0-5); Hematocrit 33.3 % (37-47); Hemoglobin 11.7 g/dL (12.0-15.0); Lymphocyte # 1.75 X10^3/ul (0.83-4.51); Lymphocyte % 12.4 % (19-41); Mean Corp Hgb Conc 35.1 g/dL (32-36); Mean Corpuscular Hgb 32.2 pg (27.0-32.0); Mean Corpuscular Volume 91.7 fL (81-99); Mean Platelet Vol. 10.7 fl (6.2-12.0); Monocyte# 1.14 X10^3/uL; Monocyte% 8.1 % (0-10); NRBC Flagged by Analyzer 0 % (0-5); Neutrophil # 10.79 X10^3/uL (2.7-7.7); Neutrophil % 76.8 % (47-70); Platelet Count 278 K/mm3 (150-450); RBC Distribution Width CV 12.9 % (11.6-14.6); RBC Distribution Width SD 42.5 fl (35.1-43.9); Red Blood Count 3.63 M/mm3 (4.2-5.4); White Blood Count 14.1 K/mm3 (4.4-11.0)
--- NOTE | 2024-10-16 15:31 | EDS_ITS ---
HPI History of Present Illness Chief Complaint: General Illness Detail of Chief Complaint: Multiple complaints major complaint is dizziness Informant: patient Onset/Context/Timing Onset: Days Context: Sudden Onset Timing: Intermittent Quality: This is defined as orthostatic lightheadedness Location: Cardiovascular Current Severity: Gone Maximum Severity: Severe Worsened by: upright position Relieved by: Supine position Associated Symptoms Associated Symptoms: Vague abdominal discomfort, Nausea Narrative Narrative: Patient is a 24-year-old G2, P1 Ab0 female who is 24 weeks gestation. She contacted her OB who recommended she come to the emergency room. OB triage stated patient to come to the ER. Since blood pressure is normal and based on documented triage note she was seen in the emergency department. Patient has fever, chills night sweats. She denies headache. Denies double vision blurred vision loss of vision. Denies ringing or ears decreased hearing. Has had some intermittent congestion. Has history of seasonal allergies. She denies sore throat. Denies change in voice. She states she feels she cannot get her breath when she is walking. She has no history of VTE. She has no leg pain, swelling discoloration. She does have history of fibromyalgia. She denies abdominal pain, pelvic pain or vaginal bleeding. She does endorse frequency without dysuria or hematuria. Denies back or flank pain. She has no history of trauma. She denied headache even though was noted in triage. Review of records indicates she has history of chronic headaches. Prior similar symptoms: No Recent Illness/Hospitalization: No [facility] Medical History History of asthma Fatigue normal course Vaginal delivery Depression Contact with and (suspected) exposure to other viral communicable diseases Sinusitis Fibromyalgia Back pain Severe headache Home Medications ?Medication ?Instructions ?Recorded ?Last Taken ?Type ferrous sulfate 140 mg (45 mg 140 mg PO DAILY 03/04/22 10/16/24 History iron) tablet,extended release cholecalciferol (vitamin D3) 25 25 mcg PO QDAY 10/16/24 History mcg (1,000 unit) capsule docosahexaenoic acid 200 mg mg PO 06/22/24 10/16/24 Hi story capsule ( DHA) sertraline 50 mg tablet (Zoloft) 50 mg PO DAILY #90 ta bs 09/04/24 10/16/24 Rx Allergy/AdvReac Type Severity Reaction Status Date / Time No Known Allergies Allergy Verified 10/16/24 14:57 Family History Grandmother Breast cancer Paternal Aunt Breast cancer Other Migraines Social History adopted: No household members: spouse and children housing: house number of children: 1 current occupation: [employer] current occupational exposures/hazards: No pets and animals: Yes pets and animals: dog(s) history of recent travel: No sexually active: Yes Smoking Status: Never smoker alcohol intake: current alcohol intake frequency: holidays/special occasions only details: Not while substance use type: does not use well-balanced diet: daily or most days caffeine: Yes Type: coffee eating out: rarely or never during the past year weight has: remained stable what type of physical activity do you participate in: walking frequency: 1-2 times per week duration: 15-30 minutes/day eveline/jehovah's witness: Islam seatbelt use: always do you feel safe at home: Yes additional social history: : [employer] online ROS ROS ED Constitutional Constitutional ED: Denies chills, fever(s), subjective or sweats Eyes Eyes: Reports other Details: She states her vision goes in and out last second. This occurs when she has orthostatic symptoms. ; Denies blurry vision, change in vision or diplopia ENT ENT ED: Reports rhinorrhea; Denies ear pain or sore throat Cardiovascular Cardiovascular: Denies chest pain, orthopnea, palpitations, paroxysmal nocturnal dyspnea or racing heartbeat Respiratory/Chest Respiratory/Chest: Reports dyspnea on exertion and other Details: Patient states she feels like she is not getting her breath when she is walking. ; Denies cough, dyspnea, orthopnea, paroxysmal nocturnal dyspnea or sputum Gastrointestinal Gastrointestinal: Reports diarrhea and other Details: To reported 3 mushy to watery stools without blood or mucus. ; Denies abdominal pain, constipation, melena, nausea or vomiting Genitourinary Genitourinary ED: Reports urinary frequency; Denies dysuria or hematuria Musculoskeletal Musculoskeletal: Denies arthralgias, back pain, myalgias or neck pain Integumentary Denies rash Neurologic Neurologic: Reports weakness; Denies headache(s) or paresthesias Psychiatric Psychiatric: Denies anxiety or depression Endocrine Endocrinology: Denies cold intolerance or heat intolerance Hematologic/Lymphatic Hematologic/Lymphatic: Reports systems reviewed and no addt'l complaints, except as documented Allergic/Immunologic Allergic/Immunologic ED: Denies mouth swelling or tongue swelling EXAM Physical Exam Const Vital Signs: 10/16/24 14:40 10/16/24 14:55 10/16/24 14:59 Temperature 97.4 F L Temperature Source Temporal Pulse Rate 89 Pulse Rate [Lying] 86 Pulse Rate [Sitting (for 1 minute prior to obtaining)] 82 Respiratory Rate 18 Respiratory Effort Short of Breath Respiratory Pattern Normal Blood Pressure 123/85 H Blood Pressure [Lying] 101/67 Blood Pressure [Sitting (for 1 minute prior to obtaining)] 113/76 Blood Pressure Mean 97 Blood Pressure Mean [Lying] 78 Blood Pressure Mean [Sitting (for 1 minute prior to obtaining)] 88 Pulse Ox 99 Oxygen Delivery Method Room Air 10/16/24 16:50 10/16/24 16:51 Temperature 97.4 F L Temperature Source Pulse Rate 104 H 104 H Pulse Rate [Lying] Pulse Rate [Sitting (for 1 minute prior to obtaining)] Respiratory Rate 15 16 Respiratory Effort Respiratory Pattern Blood Pressure 113/78 113/78 Blood Pressure [Lying] Blood Pressure [Sitting (for 1 minute prior to obtaining)] Blood Pressure Mean 89 89 Blood Pressure Mean [Lying] Blood Pressure Mean [Sitting (for 1 minute prior to obtaining)] Pulse Ox 100 100 Oxygen Delivery Method Room Air Positive well nourished and well developed Constitutional Narrative: Vital signs noted. They are unremarkable. General Appearance ED: well developed and NAD; Negative for pallor HEENT Reports moist mucous membranes HEENT Narrative: Head is atraumatic no cephalic. Ears normal. Nares patent. Posterior pharynx normal. Uvula midline. No deviation of protrusion. Eyes PERRL General Eye ED: Negative for pale conjunctiva or scleral icterus Neck no lymphadenopathy, supple and no JVD Chest Wall palpation of chest normal Resp normal respiratory effort and clear to auscultation bilaterally Cardio regular rate, regular rhythm, S1 normal heart sound, S2 normal heart sound and no murmurs GI normal to inspection, nondistended, normoactive bowel sounds, non-tender and non-distended; Negative for no masses GI Narrative: Fundal height is 3 to 4 fingerbreadths above the umbilicus. Auscultation: normoactive bowel sounds Palpation: soft Back/Spine no CVA tenderness Extremity normal to inspection Extremity Narrative: There is no asymmetry, swelling, discoloration, leg vein distention, palpable cords or tenderness along the distribution of the deep venous system. General Extremety ED: Negative for edema General Extremity: Negative for edema Neuro oriented x3, CN's II-XII intact bilaterally and no sensory deficits noted Sensorium / Orientation: alert Motor Exam: strength 5/5 throughout Psych mental status grossly normal Skin no rashes or lesions noted, no wounds and skin turgor normal General Skin Exam: elasticity normal; Negative for jaundice or pallor MDM MDM MDM Narrative Medical decision making narrative: Orthostatic vital signs were obtained since patient is complaining of orthostatic lightheadedness. I was informed by nurse she became symptomatic. There was no significant change in her vitals. This is not described as vertigo. CBC was obtained assess H&H and white count. Electrolyte panel was obtained as well to assess renal function, glucose and sodium and potassium specifically. History & Record Review Additional record(s) reviewed:: Prior outpatient record (Note by nurse practitioner Imani Sullivan was reviewed. She was seen October 02. This is for her . Assessment was supervision of high risk . She was 20 waiting weeks at that time. Also open obesity affecting . She was noted to have a low-lying placenta, antepartum) and Other (Office visit by Dr. Davion Mcgee for August 07 was reviewed. Assessment at that time was obesity affecting , supervision of high risk and anxiety.) Lab Data Attestation: I reviewed the patient's lab results. Lab results narrative: White count is elevated 14.1 thousand with slight shift. There is no bandemia. Suspect this is reactive due to the . Comprehensive metabolic panel is normal. Uric acid is normal. Labs: Laboratory Results - last 24 hr 10/16/24 15:04 WBC 14.1 H RBC 3.63 L Hgb 11.7 L Hct 33.3 L MCV 91.7 MCH 32.2 H MCHC 35.1 RDW Std Deviation 42.5 RDW Coeff of Richard 12.9 Plt Count 278 MPV 10.7 Immature Gran % (Auto) 0.900 Neut % (Auto) 76.8 H Lymph % (Auto) 12.4 L [place] % (Auto) 8.1 Eos % (Auto) 1.6 Baso % (Auto) 0.2 Absolute Neuts (auto) 10.8 H Absolute Lymphs (auto) 1.75 Nucleated RBC % 0 PT 12.8 INR 0.9 APTT 26.6 Sodium 135 Potassium 3.9 Chloride 104 Carbon Dioxide 20.6 L Anion Gap 10 BUN 9 Creatinine 0.50 L Estim Creat Clear Calc 166.35 Est GFR (MDRD) Non-Af 134 BUN/Creatinine Ratio 17.2 Glucose 98 Uric Acid 4.5 Calcium 9.3 Total Bilirubin < 0.15 AST 14 ALT 11 Alkaline Phosphatase 89 Total Protein 6.6 Albumin 3.6 Globulin 3.1 Albumin/Globulin Ratio 1.2 Treatment and Re-Evaluation :: Orthostatic vital signs were obtained after liter of fluid. She is no longer symptomatic and orthostatic negative. Therefore will discharge to home Discharge Plan Triage Chief Complaint: General Illness Other Complaint: ED Provider: Edwin Rome Dx/Rx/DC Orders Clinical Impression: Orthostatic lightheadedness, Second trimester , Adult BMI 33.0-33.9 kg/sq m, Leukocytosis, Anemia affecting second Instructions: ED Dizziness, Uncertain Cause Prescriptions: No Action ferrous sulfate 140 mg (45 mg iron) tablet extended release 140 mg PO DAILY cholecalciferol (vitamin D3) 25 mcg (1,000 unit) capsule 25 mcg PO QDAY DHA 200 mg capsule PO sertraline [Zoloft] 50 mg tablet 50 mg PO DAILY Qty: 90 4RF Primary Care Provider: Neda Keith Referrals: Karyna Mckenzie MD [Med Staff - Active Staff] - Keep Velma appointment Neda Keith PA-C [Primary Care Provider] - As Needed Print Language: Turkmen Disposition Disposition: Home, Self Care
[2024-10-16 15:39] LABS: Uric Acid 4.5 mg/dL (2.6-6.0)
[2024-10-16 15:42] LABS: ALB/GLOB Ratio 1.2 RATIO (0.9-2.4); AST(SGOT) 14 U/L (<=31); Alanine Aminotransfer ALT/SGPT 11 U/L (<=34); Albumin, Serum 3.6 g/dL (3.5-5.0); Alkaline Phosphatase 89 U/L (35-104); Anion Gap 10 (5-15); BUN 9 mg/dL (4-19); BUN/Creat Ratio 17.2 RATIO (10-20); Calcium,Total 9.3 mg/dL (7.6-11.0); Carbon Dioxide 20.6 mmol/L (21.0-32.0); Chloride 104 mmol/L (98-108); EST Glomerular Filtration Rate 134 (>60); Estimated Creatinine Clearance 166.35 ml/min (50-250); Globulin 3.1 g/dL (2.2-4.2); Glucose 98 mg/dL (70-99); Potassium 3.9 mmol/L (3.3-5.1); Protein, Total 6.6 g/dL (5.9-8.4); Sodium Level 135 mmol/L (133-145); Total Bilirubin < 0.15 mg/dL (0.00-1.30)
[2024-10-16 16:50] VITALS: BP 113/78; PULSE 104; RESP 15; O2SAT 100
[2024-10-16 16:51] VITALS: BP 113/78; PULSE 104; RESP 16; TEMP 36.3; O2SAT 100
== END 2024-10-16 16:56 | disposition home or self-care (01) ==
PROVIDERS: Emergency Provider Emergency Medicine; PCP Family Medicine; Visit Provider Emergency Medicine
DX: O26.892 Other specified pregnancy related conditions, second trimester (principal); R42 Dizziness and giddiness; D72.829 Elevated white blood cell count, unspecified; R50.9 Fever, unspecified; R10.9 Unspecified abdominal pain; O99.112 Other diseases of the blood and blood-forming organs and certain disorders involving the immune mechanism complicating pregnancy, second trimester; O99.212 Obesity complicating pregnancy, second trimester; E66.9 Obesity, unspecified; Z3A.24 24 weeks gestation of pregnancy
CPT/HCPCS: 81001; 80053; 84550; 85025; 85610; 85730; 96360; 99285

== ENCOUNTER → 2024-10-18 | Outpatient (CLI) | payer MEDICAID, SELFPAY ==
--- NOTE | 2024-10-18 12:03 | RAD_ITS ---
EXAM: XR Chest, 2 Views CLINICAL INDICATION: CHEST PAIN TECHNIQUE: Frontal and lateral views of the chest. COMPARISON: No relevant prior studies available. FINDINGS: LUNGS AND PLEURAL SPACES: Unremarkable. No consolidation. No pneumothorax. HEART: Unremarkable. No cardiomegaly. MEDIASTINUM: Unremarkable. Normal mediastinal contour. BONES/JOINTS: Unremarkable. No acute fracture. RAD/Chest PA and Lateral IMPRESSION: No acute cardiopulmonary process. Reading Location: [facility]
--- NOTE | 2024-10-18 12:09 | EKG12_ITS ---
Test Reason : CP,DIZZY,SOB Blood Pressure : */* mmHG Vent. Rate : 89 BPM Atrial Rate : 89 BPM P-R Int : 136 ms QRS Dur : 70 ms QT Int : 346 ms P-R-T Axes : 45 16 17 degrees QTcB Int : 420 ms Normal sinus rhythm Normal ECG Confirmed by Manolo Merritt ([id number]), food editor AMANDA WATSON ([id number]) on 10/19/2024 12:54:33 PM Referred By: Imani Sullivan Confirmed By: Manolo Merritt
== END | disposition home or self-care (01) ==
PROVIDERS: PCP Family Medicine; Referring Provider Nurse Practitioner Women's Health; Visit Provider Nurse Practitioner Women's Health
DX: R07.9 Chest pain, unspecified (principal)
CPT/HCPCS: 71046; 93005

== ENCOUNTER → 2024-11-13 | Outpatient (CLI) | payer MEDICAID, SELFPAY ==
[2024-11-13 13:57] LABS: Absolute Lymphocyte Count 1.33 X10^3/uL (0.83-4.51); Absolute Neutrophil Count 7.9 X10^3/uL (2.0-7.7); Basophil# 0.02 X10^3/uL; Basophil% 0.2 % (0-1); Eosinophils% 1.9 % (0-5); Hematocrit 34.6 % (37-47); Hemoglobin 11.8 g/dL (12.0-15.0); Lymphocyte # 1.33 X10^3/ul (0.83-4.51); Lymphocyte % 12.8 % (19-41); Mean Corp Hgb Conc 34.1 g/dL (32-36); Mean Corpuscular Hgb 31.6 pg (27.0-32.0); Mean Corpuscular Volume 92.8 fL (81-99); Mean Platelet Vol. 10.9 fl (6.2-12.0); Monocyte# 0.93 X10^3/uL; Monocyte% 8.9 % (0-10); NRBC Flagged by Analyzer 0 % (0-5); Neutrophil # 7.87 X10^3/uL (2.7-7.7); Neutrophil % 75.4 % (47-70); Platelet Count 248 K/mm3 (150-450); RBC Distribution Width CV 13.2 % (11.6-14.6); RBC Distribution Width SD 44.3 fl (35.1-43.9); Red Blood Count 3.73 M/mm3 (4.2-5.4); White Blood Count 10.4 K/mm3 (4.4-11.0)
[2024-11-13 15:31] LABS: Glucose Challenge Gest 1H 50g 95 mg/dL (70-140); HIV Nonreactive (Nonreactive); Syphilis Antibodies Nonreactive (Nonreactive)
== END | disposition home or self-care (01) ==
LOC: LAB 12:48
PROVIDERS: PCP Family Medicine; Referring Provider Advanced Practice Midwife; Visit Provider Advanced Practice Midwife
DX: O09.92 Supervision of high risk pregnancy, unspecified, second trimester (principal); Z13.1 Encounter for screening for diabetes mellitus; Z3A.00 Weeks of gestation of pregnancy not specified
CPT/HCPCS: 36415; 82950; 85025; 86703; 86780

== ENCOUNTER 2024-12-05 21:40 | Outpatient (CLI) | payer MEDICAID, SELFPAY ==
[2024-12-05 22:00] VITALS: BMI 36.1
[2024-12-05 22:39] VITALS: PULSE 81; O2SAT 98
[2024-12-05 23:00] LABS: Color, Urine Yellow (Yellow); Glucose, Dipstick Normal (Normal); Ketone-Dipstick Negative (Negative); Leukocyte Esterase-Dipstick 100 /ul (Negative); Nitrite-Dipstick Negative (Negative); Occult Blood-Urine Negative /ul (Negative); Protein-Dipstick Negative (Negative); Urine Bilirubin Dipstick Negative (Negative); Urine Clarity Clear (Clear); Urine Urobilinogen Normal (Normal); Urine pH 6.5 (5.0 - 8.0)
--- NOTE | 2024-12-05 23:04 | OB.TRI.NOTE ---
HPI - General General Date of Admission: 12/05/24 Date of Service: 12/05/24 HPI Narrative GRANT RUVALCABA, is a 24 y/o @ 31 weeks who presents to L&D after her belly was pushed on by her 2 year old. She was worried about the baby and wanted to get checked out. Maternal Data Information GEORGI Calculator Estimated Delivery Date Method Current WG Current Estimate 02/06/25 LMP (Certain) 31w 2d Other Estimates 02/05/25 Ultrasound #1 31w 3d PFSH PFSH Medical History History of asthma Fatigue normal course Vaginal delivery Depression Contact with and (suspected) exposure to other viral communicable diseases Sinusitis Fibromyalgia Back pain Severe headache Home Medications ?Medication ?Instructions ?Recorded ?Last Taken ?Type ferrous sulfate 140 mg (45 mg 140 mg PO DAILY 03/04/22 12/05/24 History iron) tablet,extended release cholecalciferol (vitamin D3) 25 25 mcg PO QDAY 03/13/24 12/05/24 History mcg (1,000 unit) capsule docosahexaenoic acid 200 mg mg PO 06/22/24 12/05/24 History capsule ( DHA) sertraline 50 mg tablet (Zoloft) 50 mg PO DAILY #90 tabs 09/04/24 12/05/24 Rx Allergy/AdvReac Type Severity Reaction Status Date / Time No Known Allergies Allergy Verified 12/05/24 21:58 Family History Grandmother Breast cancer Paternal Aunt Breast cancer Other Migraines Social History adopted: No household members: spouse and children housing: house number of children: 1 current occupation: [employer] current occupational exposures/hazards: No pets and animals: Yes pets and animals: dog(s) history of recent travel: No sexually active: Yes Smoking Status: Never smoker alcohol intake: current alcohol intake frequency: holidays/special occasions only details: Not while substance use type: does not use well-balanced diet: daily or most days caffeine: Yes Type: coffee eating out: rarely or never during the past year weight has: remained stable what type of physical activity do you participate in: walking frequency: 1-2 times per week duration: 15-30 minutes/day eveline/presybeterian: Adventist seatbelt use: always do you feel safe at home: Yes additional social history: : [employer] History 2 Elective abortions Hx Para 1 Spontaneous abortions Hx # Term Pregnancies 1 Ectopic pregnancies Hx # Pregnancies Multiple births # of living children 1 Past Pregnancies Del. Date Name GA/Weeks Outcome Route Bth Weight Gen Labor Lgth Anesthesia Del Locatn Provider FOB 09/23/22 Kate 38 live - full term 7lbs 6oz Male epidural [facility] Karyna Mckenzie [place] Delivery Date: 09/23/22 Last Updated by: Jenna Ahmadi SM IAL SROM boy kate Visit Details Expected Delivery Route/Plan Labor Preferences- CB/BF classes: no labor support person: Killian labor intervention preferences: [] pain management options preferred: epidural if requested cut cord/dad catch: cord : no PP control planned: discussed discussed possible routes of delivery and associated risks: [] special requests: [] Plans Covid status: [] Flu vaccine: [] Tdap vaccine: [] Rhogam: NA LARC form signed: yes Problem list reviewed and updated with the most current plan of care details and appropriate orders placed. Relevant counseling for the gestational age provided. Continue routine care and follow up unless otherwise noted in visit notes/problem list details OB Flowsheet Initial Weight: 171 lb Date <del>?</del> EGA Weight BP Urine Prot <del>?</del> Glucose FHR FuHt Pres Dilation <del>?</del> Effaced St Visit Note 07/06/24 <del>?</del> 9w 2d 171 lb (+0 oz) 115/78 <del>?</del> 168 <del>?</del> KW- CRL cons with dates. accepts NIPT. 08/07/24 <del>?</del> 13w 6d 168 lb 6 oz (-2 lb 10 oz) 123/82 Negative <del>?</del> Negative 160 <del>?</del> SM- no vb lof some nausea 09/04/24 <del>?</del> 17w 6d 171 lb 8 oz (+8 oz) 113/79 Negative <del>?</del> Negative 145 <del>?</del> MH-No VB. Nausea resolved. PCP increased her to 50mg zoloft and needs refill/sent. 10/02/24 <del>?</del> 21w 6d 175 lb 2 oz (+4 lb 2 oz) 110/72 Negative <del>?</del> Negative 146 <del>?</del> MH-No VB, LOF. Good FM. 28 wk US w MFM scheduled 10/18/24 <del>?</del> 24w 1d 180 lb 8 oz (+9 lb 8 oz) 118/81 Trace <del>?</del> Negative 153 <del>?</del> MH-work in ED follow up: good FM. Cont with headache, dizziness, chest pain and SOB. Normal CBC, CMP. Very frustrated with ED visit and still not feeling well. Will get stat EKG and CXR today 10/30/24 <del>?</del> 25w 6d 183 lb 2 oz (+12 lb 2 oz) 113/78 Negative <del>?</del> Negative 150 25 <del>?</del> KW- no vb/lof/ctx. good fm. glucose next visit. 11/13/24 <del>?</del> 27w 6d 185 lb 4 oz (+14 lb 4 oz) 112/78 Negative <del>?</del> Negative 143 28 <del>?</del> MH-No VB, LOF. Good FM. Larc. 28 wk labs pending 11/27/24 <del>?</del> 29w 6d 192 lb (+21 lb) 109/72 Negative <del>?</del> Negative 145 29 <del>?</del> JV- no lof, vaginal bleeding, or dec fm. no complaints other than a sharp left lower side pain x1 over the weekend. declines tdap. ROS Constitutional Constitutional: Reports systems reviewed and no addt'l complaints, except as documented Gastrointestinal Gastrointestinal: Denies bloating, constipation, cramping, diarrhea, nausea or vomiting Genitourinary Genitourinary: Reports other Details: Denies vaginal odor, vaginal bleeding, or vaginal discharge ; Denies difficulty urinating or flank pain NST FHR Rate Baby A Baseline: 130 Variability:: Moderate Accelerations:: 15 x 15 and 10 x 10 Decelerations:: None NST Reactive:: Yes FHR Category:: Category I Uterine Activity:: no contractions Assessment & Plan (1) Trauma during : (2) Obesity affecting : QUALIFIERS: Trimester: second trimester Obesity type affecting : unspecified obesity Qualified Code(s): O99.212 - Obesity complicating , second trimester COMMENT: BMI 30.3; HgBA1C w/NOB (3) Supervision of high-risk : QUALIFIERS: Trimester: second trimester Qualified Code(s): O09.92 - Supervision of high risk , unspecified, second trimester COMMENT: PRR, , GEORGI 02/06/25,girl Fatimah PC: Kate, : [place] (4) : QUALIFIERS: Weeks of gestation: 29 weeks Qualified Code(s): Z3A.29 - 29 weeks gestation of COMMENT: (Carrier testing done in prior ), baby low risk, gender female (5) Anxiety: PLAN: Plan reactive NST for gestational age has been over 2 hours since incident and patient is feeling well. no loss of fluid, vaginal bleeding, or dec fm. Charges/Coding Multi Select Codes Urinary/Genital Urinary/Genital CPT Codes: 70774-58 non-stress test Interp
--- NOTE | 2024-12-05 23:04 | OB.TRI.HP_ITS ---
HPI - General General Date of Admission: 12/05/24 Date of Service: 12/05/24 HPI Narrative GRANT RUVALCABA, is a 24 y/o @ 31 weeks who presents to L&D after her belly was pushed on by her 2 year old. She was worried about the baby Maternal Data Information GEORGI Calculator Estimated Delivery Date Method Current WG Current Estimate 02/06/25 LMP (Certain) 31w 2d Other Estimates 02/05/25 Ultrasound #1 31w 3d PFSH PFSH Medical History History of asthma Fatigue normal course Vaginal delivery Depression Contact with and (suspected) exposure to other viral communicable diseases Sinusitis Fibromyalgia Back pain Severe headache Home Medications ?Medication ?Instructions ?Recorded ?Last Taken ?Type ferrous sulfate 140 mg (45 mg 140 mg PO DAILY 03/04/22 12/05/24 History iron) tablet,extended release cholecalciferol (vitamin D3) 25 25 mcg PO QDAY 4 12/05/24 History mcg (1,000 unit) capsule docosahexaenoic acid 200 mg mg PO 06/22/24 12/05/24 Hi story capsule ( DHA) sertraline 50 mg tablet (Zoloft) 50 mg PO DAILY #90 ta bs 09/04/24 12/05/24 Rx Allergy/AdvReac Type Severity Reaction Status Date / Time No Known Allergies Allergy Verified 12/05/24 21:58 Family History Grandmother Breast cancer Paternal Aunt Breast cancer Other Migraines Social History adopted: No household members: spouse and children housing: house number of children: 1 current occupation: [employer] current occupational exposures/hazards: No pets and animals: Yes pets and animals: dog(s) history of recent travel: No sexually active: Yes Smoking Status: Never smoker alcohol intake: current alcohol intake frequency: holidays/special occasions only details: Not while substance use type: does not use well-balanced diet: daily or most days caffeine: Yes Type: coffee eating out: rarely or never during the past year weight has: remained stable what type of physical activity do you participate in: walking frequency: 1-2 times per week duration: 15-30 minutes/day eveline/jehovah's witness: Mandaeism seatbelt use: always do you feel safe at home: Yes additional social history: : [employer] History 2 Elective abortions Hx Para 1 Spontaneous abortions Hx # Term Pregnancies 1 Ectopic pregnancies Hx # Pregnancies Multiple births # of living children 1 Past Pregnancies Del. Date Name GA/Weeks Outcome Route Bth Weight Infant Gen Labor Lgth Anesthesia Del Locatn Provider FOB 09/23/22 Kate 38 live - full term 7lbs 6oz Male epi dural [facility] Karyna Mckenzie [place] Delivery Date: 09/23/22 Last Updated by: Jenna Ahmadi SM IAL SROM boy kate Visit Details Expected Delivery Route/Plan Labor Preferences- CB/BF classes: no labor support person: [place]ian labor intervention preferences: [] pain management options preferred: epidural if requested cut cord/dad catch: cord : no PP control planned: discussed discussed possible routes of delivery and associated risks: [] special requests: [] Plans Covid status: [] Flu vaccine: [] Tdap vaccine: [] Rhogam: NA LARC form signed: yes Problem list reviewed and updated with the most current plan of care details and appropriate orders placed. Relevant counseling for the gestational age provided. Continue routine care and follow up unless otherwise noted in visit notes/problem list details OB Flowsheet Initial Weight: 171 lb Date -?-?-?-?-?-?-?-?-?-?-?-?- EGA Weight BP Urine Prot -?-?-?-?-?-?-?-?-?-?-?-?- Glucose FHR FuHt Pres Dilation -?-?-?-?-?-?-?-?-?-?-?-?- Effaced St Visit Note 07/06/24 -?-?-?-?-?-?-?-?-?-?-?-?- 9w 2d 171 lb (+0 oz) 115/78 -?-?-?-?-?-?-?-?-?-?-?-?- 168 -?-?-?-?-?-?-?-?-?-?-?-?- KW- CRL cons wit h dates. accepts NIPT. 08/07/24 -?-?-?-?-?-?-?-?-?-?-?-?- 13w 6d 168 lb 6 oz (-2 lb 10 oz) 123/82 Negative -?-?-?-?-?-?-?-?-?-?-?-?- Negative 160 -?-?-?-?-?-?-?-?-?-?-?-?- - no vb lof so me nausea 09/04/24 -?-?-?-?-?-?-?-?-?-?-?-?- 17w 6d 171 lb 8 oz (+8 oz) 113/79 Negative -?-?-?-?-?-?-?-?-?-?-?-?- Negative 145 -?-?-?-?-?-?-?-?-?-?-?-?- -No VB. Nausea resolved. PCP increased her to 50mg zoloft and needs refill/sent. 10/02/24 -?-?-?-?-?-?-?-?-?-?-?-?- 21w 6d 175 lb 2 oz (+4 lb 2 oz) 110/72 Negative -?-?-?-?-?-?-?-?-?-?-?-?- Negative 146 -?-?-?-?-?-?-?-?-?-?-?-?- -No VB, LOF. G ood FM. 28 wk US w MFM scheduled 10/18/24 -?-?-?-?-?-?-?-?-?-?-?-?- 24w 1d 180 lb 8 oz (+9 lb 8 oz) 118/81 Trace -?-?-?-?-?-?-?-?-?-?-?-?- Negative 153 -?-?-?-?-?-?-?-?-?-?-?-?- -work in ED fo llow up: good FM. Cont with headache, dizziness, chest pain and SOB. Normal CBC, CMP. Very frustrated with ED visit and still not feeling well. Will get stat EKG and CXR today 10/30/24 -?-?-?-?-?-?-?-?-?-?-?-?- 25w 6d 183 lb 2 oz (+12 lb 2 oz) 113/78 Negative -?-?-?-?-?-?-?-?-?-?-?-?- Negative 150 25 -?-?-?-?-?-?-?-?-?-?-?-?- KW- no vb/lof/ct x. good fm. glucose next visit. 11/13/24 -?-?-?-?-?-?-?-?-?-?-?-?- 27w 6d 185 lb 4 oz (+14 lb 4 oz) 112/78 Negative -?-?-?-?-?-?-?-?-?-?-?-?- Negative 143 28 -?-?-?-?-?-?-?-?-?-?-?-?- MH-No VB, LOF. G ood FM. Larc. 28 wk labs pending 11/27/24 -?-?-?-?-?-?-?-?-?-?-?-?- 29w 6d 192 lb (+21 lb) 109/72 Negative -?-?-?-?-?-?-?-?-?-?-?-?- Negative 145 29 -?-?-?-?-?-?-?-?-?-?-?-?- JV- no lof, vagi nal bleeding, or dec fm. no complaints other than a sharp left lower side pain x1 over the weekend. declines tdap.
== END 2024-12-05 23:35 | disposition home or self-care (01) ==
LOC: OBT 21:43 → WP 21:44
PROVIDERS: PCP Family Medicine; Referring Provider Obstetrics & Gynecology; Visit Provider Obstetrics & Gynecology
DX: O9A.213 Injury, poisoning and certain other consequences of external causes complicating pregnancy, third trimester (principal); S36.30XA Unspecified injury of stomach, initial encounter; W50.0XXA Accidental hit or strike by another person, initial encounter; O99.213 Obesity complicating pregnancy, third trimester; O99.343 Other mental disorders complicating pregnancy, third trimester; F41.9 Anxiety disorder, unspecified; Z79.899 Other long term (current) drug therapy; Z3A.31 31 weeks gestation of pregnancy
CPT/HCPCS: 59025; 81002; 99212; 99221; G0378; G0463

== ENCOUNTER → 2025-01-07 | Outpatient (CLI) | payer MEDICAID, SELFPAY | END | disposition home or self-care (01) | LOC: LABSPEC 15:33 | PROVIDERS: PCP Family Medicine; Visit Provider Advanced Practice Midwife | DX: O09.93 Supervision of high risk pregnancy, unspecified, third trimester (principal); Z3A.35 35 weeks gestation of pregnancy | CPT/HCPCS: 87081 ==

== ENCOUNTER 2025-01-17 03:57 | Inpatient (IN) | payer MEDICAID, SELFPAY ==
[2025-01-17] VITALS (17 sets, daily range): BP systolic 79–126; BP diastolic 47–80; PULSE 68–102; RESP 12–19; TEMP 35.6–36.6; O2SAT 96–100; BMI 39.6
--- OUTSIDE RECORDS SUMMARY | 2025-01-17 03:40 | XMS RPT_ITS | CCD ---
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 Lynsey Ambrocio Attending Provider [phone] Care Physician, No Primary Primary Care Provider Unavailable Care Physician, No Primary Referring Provider Un available Dr. Lynsey Ambrocio Attending Provider [phone] SPIKE Elias Attending Provider SAADIA Sullivan NP Attending Provider [phone] Dr. Karyna Carr Attending Provider Dr. Karyna Carr Other Provider Care Physician, No Primary Primary Care Provider Unavailable Care Physician, No Primary Referring Provider Un available Dr. Lynsey Ambrocio Attending Provider [phone] SPIKE Elias Attending Provider Care Physician, No Primary Primary Care Provider Unavailable Care Physician, No Primary Referring Provider Un available Dr. Lynsey Ambrocio Attending Provider [phone] Dr. Karyna Carr Attending Provider Dr. Karyna Carr Other Provider SAADIA Sullivan NP Attending Provider SPIKE Elias Attending Provider SPIKE Elias Referring Provider SPIKE Elias Other Provider Dr. Karyna Carr Referring Provider [phone] SPIKE Begum Attending Provider [phone] SPIKE Begum Referring Provider [phone] SPIKE Begum Other Provider Care Physician, No Primary Primary Care Provider Unavailable Care Physician, No Primary Referring Provider Un available Dr. Lynsey Ambrocio Attending Provider [phone] Dr. Lynsey Ambrocio Admit Provider Dr. Lynsey Ambrocio Other Provider Dr. Karyna Carr Admit Provider Dr. Suzette Sage Other Provider Care Physician, No Primary Primary Care Provider Unavailable Care Physician, No Primary Referring Provider Un available Dr. Lynsey Ambrocio Attending Provider [phone] Dr. Karyna Carr Attending Provider [phone] Laurie ACCOUNTANT CLERK, ACCOUNTANT CLERK-C Imani Attending Provider [phone] Dr. Karyna Carr Other Provider Care Physician, No Primary Primary Care Provider Unavailable Care Physician, No Primary Referring Provider Un available Dr. Lynsey Ambrocio Attending Provider [phone] SPIKE Elias Attending Provider Unavailable Primary Care Provider UnavailLINH Berry Attending Unavailable Care Physician, No Primary Primary Care Provider Unavailable Care Physician, No Primary Referring Provider Un available AUGUSTINE Breen Attending Provider Laurie ACCOUNTANT CLERK, ACCOUNTANT CLERK-C Imani Attending Provider [phone] CSERNYIK, YUDY DO Attending Unavailable CSERNYIK, YUDY DO Primary Care Unavailable CSERNYIK, YUDY DO Admitting Unavailable ALMAZ GORDON Attending Unavailable CHAVA EL Attending Unavailable Care Physician, No Primary Primary Care Provider Unavailable Care Physician, No Primary Referring Provider Un available Sharri Begum CNM Attending Provider [phone] Sharri Begum CNM Referring Provider [phone] Dr. Karyna Carr MD Attending Provider [phone] [place] ACCOUNTANT CLERK-C, Imani Attending Provider Wild OROURKE, Dr. Pineda Attending Provider Wild OROURKE, Dr. Pineda Emergency Provider Mundelein PA-C, [place] Primary Care Provider [place] PA-C, Neda Referring Provider [place] ACCOUNTANT CLERK-C, Imani Referring Provider Dr. Manolo Merritt MD Attending Provider Care Physician, No Primary Primary Care Provider Unavailable Care Physician, No Primary Referring Provider Un available Sharri Begum CNM Attending Provider [phone] Sharri Begum CNM Referring Provider [phone] Dr. Lynsey Ambrocio DO Attending Provider Dr. Lynsey Ambrocio DO Referring Provider Care Physician, No Primary Primary Care Provider Unavailable Care Physician, No Primary Referring Provider Un available Dr. Lynsey Ambrocio DO Other Provider [phone] LYNSEY PATTERSON Attending Unavailable LYNSEY PEREIRA Referring Unavailab le FLUSHING NEDA Zahraa Primary Care Unavailable FL[facility]ING [facility] Primary Care Unavailable KARYNA CARR Referring Unavailabl e SAMI DOWNEY Attending Unavailable FLUSHING [facility] Primary Care Unavailable KARYNA CARR Referring Unavailabl e ALICIA STEWART Attending Unavailable Care Physician, No Primary Primary Care Provider Unavailable Care Physician, No Primary Referring Provider Un available [place] ACCOUNTANT CLERK-C, Imani Attending Provider Sharri Begum Referring Unavailable Sharri Begum Attending Unavailable Munde[place] PA, Neda Primary Care Unavailable Sharri Begum Attending Unavailable [facility], [place] Primary Care Unavailable Lynsey Ambrocio Attending Unavailabl e [place] PA [place] Primary Care Unavailable Lynsey Ambrocio Referring Unavailabl e Laurie ACCOUNTANT CLERK, Imani Attending Unavailable Laurie ACCOUNTANT CLERK, Imani Referring Unavailable [place]de[place] PA, Neda Primary Care Unavailable Care Physician, No Primary Primary Care Unava ilable Sharri Begum Attending Unavailable Sharri Begum Referring Unavailable Edwin Rome Attending Unavailable [place] PA, Neda Primary Care Unavailable Care Physician, No Primary Primary Care Unava ilable Sharri Begum Referring Unavailable Sharri Begum Attending Unavailable Care Physician, No Primary Primary Care Unava ilable [place] ACCOUNTANT CLERK, Imani Referring Unavailable [place] ACCOUNTANT CLERK, Imani Attending Unavailable Laurie ACCOUNTANT CLERK, Imani Attending Unavailable [place] PA, [place] Primary Care Unavailable Mun[place] PA, Neda Referring Unavailable Sharri Begum Attending Unavailable [place] PA, Neda Referring Unavailable [place] PA, [place] Primary Care Unavailable Care Physician, No Primary Referring Unava ilable Sharri Begum Attending Unavailable [place] PA, [place] Primary Care Unavailable Care Physician, No Primary Primary Care Unava ilable Care Physician, No Primary Referring Unava ilable Laurie ACCOUNTANT CLERK, Imani Attending Unavailable Munde[place] PA, Neda Referring Unavailable [place] ACCOUNTANT CLERK, Imani Attending Unavailable [place] PA, [place] Primary Care Unavailable Annette Real Attending Unavailable Care Physician, No Primary Primary Care Unava ilable Sharri Begum Attending Unavailable [place] PA, Neda Referring Unavailable Munde[place] PA, [place] Primary Care Unavailable Manolo Merritt Attending Unavailable Laurie ACCOUNTANT CLERK, Imani Referring Unavailable Mundelein PA, Neda Primary Care Unavailable Lynsey Ambrocio Consulting Unavailabl e Mundelein PA, [place] Primary Care Unavailable Lynsey Ambrocio Referring Unavailabl e Lynsey Ambrocio Attending Unavailabl e Care Physician, No Primary Primary Care Unava ilable Care Physician, No Primary Referring Unava ilable Karyna Carr Attending Unavailable Care Physician, No Primary Primary Care Unava ilable Care Physician, No Primary Referring Unava ilable Laurie ACCOUNTANT CLERK, Imani Attending Unavailable Care Physician, No Primary Primary Care Unava ilable Sharri Begum Attending Unavailable Care Physician, No Primary Referring Unava ilable Care Physician, No Primary Primary Care Unava ilable Care Physician, No Primary Referring Unava ilable [place] ACCOUNTANT CLERK, Imani Attending Unavailable Care Physician, No Primary Primary Care Unava ilable Care Physician, No Primary Referring Unava ilable Laurie ACCOUNTANT CLERK, Imani Attending Unavailable Munde[place] PA, Neda Referring Unavailable Munde[place] PA, Neda Primary Care Unavailable Lynsey Ambrocio Attending Unavailabl e Care Physician, No Primary Referring Unava ilable [place] ACCOUNTANT CLERK, Imani Attending Unavailable Munde[place] PA, Neda Primary Care Unavailable Lynsey Ambrocio [facility] Referring Unavailable [place] Neda BRADSHAW Primary [facility] Unavailable Medications Current Medications Medication Drug Class(es) Dates Sig (Normalized) Sig (Original) cholecalciferol 0.025 mg oral capsule (10 sources) Vitamin D Start: 03-13-2024 take 1 capsule by mouth once daily Cholecalciferol (Vitamin D3) 25 mcg (1,000 unit) capsule Active 25 ug PO daily March 13, 2024 12:00am docosahexaenoic acid 200 mg oral capsule (10 sources) Start: 06-22-2024 Docosahexaenoic Acid ( Dha) 200 mg capsule Active mg PO June 22, 2024 1:00am ferrous sulfate 140 mg extended release oral tablet (20 sources) Start: 03-04-2022 take 1 tablet by mouth once daily Ferrous Sulfate 140 mg (45 mg iron) tablet extended release Active 140 mg PO DAILY March 04, 2022 12:00am sertraline 50 mg oral tablet (20 sources) Serotonin Reuptake Inhibitor Start: 09-04-2024 take 1 tablet by mouth once daily Sertraline (Zoloft) 50 mg tablet Active 50 mg PO DAILY September 04, 2024 12:00am Start: 06-22-2022 take 1 tablet by wilmer th once daily Sertraline (Zoloft) 50 mg tablet Active 50 MG PO DAILY June 22, 2022 12:00am Start: 04-30-2022 End: 09-04-2024 take 1 tablet by mouth once daily Sertraline (Zoloft) 25 mg tablet Discontinued 25 mg PO DAILY January 25, 2024 9:38am March 13, 2024 1:16pm Completed/Discontinued Medications Medication Drug Class(es) Dates Sig (Normalized) Sig (Original) amoxicillin 500 mg oral capsule (20 sources) Penicillin-class Antibacterial Start: 05-25-2018 End: 06-08-2018 take 2 capsules by mouth twice daily Amoxicillin 500 mg capsule Discontinued 1000 mg PO TWICE A DAY 56 14 May 25, 2018 1:00am June 07, 2018 1:00am June 08, 2018 1:07am Start: 05-25-2018 End: 06-08-2018 take 1000 mg by mouth twice daily Amoxicillin Discontinued 1000 MG PO TWICE A DAY 56 14 May 25, 2018 12:00am June 08, 2018 12:07am amoxicillin 875 mg / clavulanate 125 mg oral tablet (20 sources) Penicillin-class Antibacterial Start: 01-20-2023 End: 03-13-2024 Amoxicillin-Pot Clavulanate 875-125 mg tablet Discontinued 1 {tbl} PO Q12H 14 0 March 01, 2023 12:00am March 13, 2024 1:09pm Start: 01-20-2023 End: 03-01-2023 take 1 tablet by mouth every twelve hours Amoxicillin-Pot Clavulanate Active 1 TABLET PO Q12H 14 February 28, 2023 11:00pm cephalexin 500 mg oral capsule (18 sources) Cephalosporin Antibacterial Start: 09-15-2022 End: 09-25-2022 take 1 capsule by mouth every six hours Cephalexin 500 mg capsule Discontinued 500 mg PO EVERY 6 HOURS 40 10 0 September 15, 2022 12:00am September 25, 2022 10:04am Urinary tract infection in mother during Unspecified infection of urinary tract in , unspecified trimester uti dextromethorphan hydrobromide 2 mg/ml / guaiFENesin 20 mg/ml oral solution (12 sources) Uncompetitive T-[place] e Receptor Antagonist, Sigma-1 Agonist Start: 03-01-2023 End: 03-13-2024 take 1 mL by mouth every six hours as needed for cough Dextromethorphan- Guaifenesin (Adult Tussin Cough Congest Dm) 10-100 mg/5 mL liquid Discontinued 10 mL PO EVERY 6 HOURS as needed for cough 500 0 March 01, 2023 12:00am March 13, 2024 1:09pm Start: 03-01-2023 take 1 mL by mouth every six hours Dextromethorphan-Guaifenesin (Adult Tuss in Cough Congest Dm) 10-100 mg/5 mL liquid Active 10 ML PO EVERY 6 HOURS 500 February 28, 2023 11:00pm doxycycline monohydrate 100 mg oral capsule (20 sources) Tetracycline-class Drug Start: 05-25-2018 End: 02-13-2020 take 1 capsule by mouth once daily Doxycycline Monohydrate 100 mg capsule Discontinued 100 mg PO DAILY May 25, 2018 1:00am February 13, 2020 8:03am fluconazole 150 mg oral tablet (12 sources) Azole Antifungal Start: 04-24-2023 End: 03-13-2024 Fluconazole 150 mg tablet Discontinued 150 mg PO .COMPLEX 2 0 April 24, 2023 1:00am March 13, 2024 1:10pm 150 mg PO take one po now and repeat in 3 days folic acid 0.8 mg oral tablet (20 sources) Start: 03-04-2022 End: 09-25-2022 take 0.8 mg by mouth once daily Folic Acid 800 mcg tablet Discontinued 0.8 mg PO DAILY March 04, 2022 12:00am September 25, 2022 10:04am Start: 03-04-2022 End: 09-25-2022 take 0.8 mg by mouth once daily Folic Acid Discontinued 0.8 MG PO DAILY March 03, 2022 11:00pm September 25, 2022 9:04am hydrocortisone 10 mg/ml / neomycin 3.5 mg/ml / polymyxin b 00004 unt/ml otic suspension (12 sources) Aminoglycoside Antibacterial, Polymyxin-class Antibacterial, Corticosteroid Start: 01-20-2023 End: 01-30-2023 Kfqauuxw-Cweleioju-Xh 3.5-10,000-1 mg/mL-unit/mL-% drops,suspension Discontinued 3 NMA OTIC THREE TIMES A DAY 10 10 0 January 20, 2023 12:00am January 29, 2023 12:00am January 30, 2023 12:03am apply to right ear Start: 01-20-2023 End: 01-30-2023 Qjryxutb-Bmuzmmpdv-Vi Discon tinued 3 DRP OTIC THREE TIMES A DAY 10 10 January 19, 2023 11:00pm January 29, 2023 11:03pm apply to right ear metroNIDAZOLE 500 mg oral tablet (20 sources) Nitroimidazole Antimicrobial Start: 07-05-2022 End: 07-12-2022 take 1 tablet by mouth twice daily Metronidazole 500 mg tablet Discontinued 500 mg PO TWICE A DAY 14 7 0 July 05, 2022 1:00am July 11, 2022 1:00am July 12, 2022 1:03am naproxen 500 mg oral tablet (16 sources) Nonsteroidal Anti-inflammatory Drug Start: 09-25-2022 End: 07-06-2024 take 1 tablet by mouth twice daily as needed for pain Naproxen 500 mg tablet Discontinued 500 mg PO TWICE A DAY as needed for pain 20 0 September 25, 2022 12:00am July 06, 2024 2:26pm ondansetron 4 mg disintegrating oral tablet (10 sources) Serotonin-3 Receptor Antagonist Start: 06-18-2024 End: 10-16-2024 take 1 tablet by mouth every six hours as needed for nausea and vomiting Ondansetron 4 mg tablet,disintegrat ing Discontinued 4 mg PO EVERY 6 HOURS as needed for nausea and vomiting 90 4 June 18, 2024 1:00am October 16, 2024 2:58pm Nausea and vomiting during Vomiting of , unspecified proparacaine hydrochloride 5 mg/ml ophthalmic solution (1 source) Local Anesthetic Start: 02-15-2023 End: 02-15-2023 proparacaine 0.5 % 1 Drop (ALCAINE) tropicamide 10 mg/ml ophthalmic solution (1 source) Anticholinergic Start: 02-15-2023 End: 02-15-2023 tropicamide 1 % 1 Drop (MYDRIACYL) Problems Active Problems Problem Classification Problem Date Documented Date Episodic/Chronic Abdominal pain (14 sources) Pain in pelvis; Translations: [Pelvic and perineal pain] 04-21-2023 Episodic Anxiety disorders (20 sources) Anxiety; Translations: [Anxiety disorder, unspecified] Onset: 12-17-2024 06-22-2024 Chronic Asthma (20 sources) Asthma; Translations: [Unspecified asthma, uncomplicated] Chronic Comment on above: exercise induced Blindness and vision defects (3 sources) Suspected amblyopia of left eye; Translations: [Amblyopia suspect, left eye] 02-15-2023 Episodic Cancer of cervix (20 sources) Atypical squamous cells of undetermined significance on cervical Papanicolaou smear; Translations: [Atypical squamous cells of undetermined significance on cytologic smear of cervix (ASC-US)] Onset: 01-07-2025 03-23-2022 Episodic Comment on above: +02/2022. 12/2022 neg pap and HPV; 2023: neg pap and HPV Conditions associated with dizziness or vertigo (20 sources) Orthostatic hypotension; Translations: [Dizziness and giddiness] Onset: 10-22-2024 10-16-2024 Episodic Diseases of white blood cells (10 sources) Leukocytosis; Translations: [Elevated white blood cell count, unspecified] 10-16-2024 Chronic Early or threatened labor (20 sources) Threatened premature labor - not delivered ; Translations: [False labor before 37 completed weeks of gestation, unspecified trimester] 07-03-2022 Episodic Headache; including migraine (1 source) Headache; including migraine; Translations: [Headache, unspecified] Onset: 01-07-2025 Hemorrhage during ; abruptio placenta; placenta previa (20 sources) Placenta previa marginalis; Translations: [Partial placenta previa NOS or without hemorrhage, unspecified trimester] Onset: 10-30-2024 06-25-2022 Episodic Comment on above: Rpt MFM US 28 wk repeat US placenta n o longer low lying Resolved. Rpt MFM US 28 wk Hypertension complicating ; childbirth and the puerperium (20 sources) Elevated blood pressure; Translations: [Unspecified maternal hypertension, third trimester] 09-14-2022 Chronic Immunizations and screening for infectious disease (20 sources) Contact with and (suspected) exposure to other viral communicable diseases; Translations: [Contact with or suspected exposure to other viral communicable disease] 03-04-2022 Episodic Malaise and fatigue (11 sources) Fatigue; Translations: [Other fatigue] Onset: 04-25-2024 06-22-2024 Episodic Mood disorders (20 sources) Depressive disorder; Translations: [Depression] 04-21-2023 Chronic Comment on above: Zoloft/stable Mood disorders (1 source) Mood disorders; Translations: [Depression, unspecified] Onset: 01-07-2025 Nonspecific chest pain (20 sources) Chest wall pain; Translations: [Other chest pain] Onset: 10-30-2024 11-04-2023 Episodic Other complications of (20 sources) Maternal obesity complicating , childbirth and the puerperium, antepartum; Translations: [Obesity complicating , unspecified trimester] 09-04-2024 Chronic Comment on above: BMI 30.3; HgBA1C w/N OB Other complications of (20 sources) Anemia in mother complicating , childbirth AND/OR puerperium; Translations: [Anemia complicating , unspecified trimester] 10-16-2024 Chronic Other complications of (2 sources) Obesity complicating , second trimester; Translations: [Obesity complicating , second trimester] Onset: 12-17-2024 Chronic Other complications of (1 source) Anemia complicating , unspecified trimester; Translations: [Anemia complicating , unspecified trimester] Onset: 10-18-2024 Chronic Other complications of (1 source) Obesity complicating , unspecified trimester; Translations: [Obesity complicating , unspecified trimester] Onset: 07-27-2024 Chronic Other complications of (20 sources) High risk ; Translations: [Supervision of high risk , unspecified, unspecified trimester] 03-29-2022 Episodic Comment on above: PRR, , ERMA 02/06,girl Fatimah PC: Kate, : Killian PRR s, boy, Kate ERMA 10/18/22, Boyfriend- Killian Other complications of (9 sources) Depressive disorder in mother complicating ; Translations: [Other mental disorders complicating , unspecified trimester] 06-22-2022 Episodic Other complications of (20 sources) Other mental disorders complicating , unspecified trimester; Translations: [Mental disorders of mother, unspecified as to episode of care or not applicable] 05-27-2022 Episodic Other complications of (19 sources) Proteinuria; Translations: [Gestational proteinuria, third trimester] 09-14-2022 Episodic Other complications of (19 sources) Reduced movement; Translations: [Decreased movements, unspecified trimester, not applicable or unspecified] 09-10-2022 Episodic Comment on above: 08/16/2022, reactive N ST on WP Other complications of (12 sources) Decreased movements, unspecified trimester, not applicable or unspecified; Translations: [Decreased movements, affecting management of mother, unspecified as to episode of care] 08-16-2022 Episodic Other complications of (13 sources) Gestational proteinuria, third trimester; Translations: [Unspecified renal disease in , without mention of hypertension, antepartum condition or complication] 09-14-2022 Episodic Other complications of (18 sources) Flank pain; Translations: [Other specified related conditions, unspecified trimester] 09-15-2022 Episodic Other complications of (18 sources) Urinary tract infection in ; Translations: [Unspecified infection of urinary tract in , unspecified trimester] 09-15-2022 Episodic Comment on above: 4/5 Other complications of (6 sources) Other specified related conditions, unspecified trimester; Translations: [Other specified complications of , antepartum condition or complication] 09-15-2022 Episodic Other complications of (9 sources) Unspecified infection of urinary tract in , unspecified trimester; Translations: [Infections of genitourinary tract in , unspecified as to episode of care or not applicable] 09-21-2022 Episodic Other complications of (20 sources) Headache; Translations: [Other specified related conditions, unspecified trimester] 10-18-2024 Episodic Comment on above: improved Other complications of (18 sources) Traumatic injury during ; Translations: [Injury, poisoning and certain other consequences of external causes complicating , unspecified trimester] 12-07-2024 Episodic Other complications of (5 sources) Poor growth affecting management; Translations: [Maternal care for other known or suspected poor growth, unspecified trimester, not applicable or unspecified] 01-01-2025 Episodic Other complications of (1 source) Supervision of high risk , unspecified, third trimester; Translations: [Supervision of high risk , unspecified, third trimester] Onset: 01-07-2025 Episodic Other complications of (1 source) Maternal care for other known or suspected poor growth, unspecified trimester, not applicable or unspecified; Translations: [Maternal care for other known or suspected poor growth, unspecified trimester, not applicable or unspecified] Onset: 01-07-2025 Episodic Other complications of (2 sources) Injury, poisoning and certain other consequences of external causes complicating , unspecified trimester; Translations: [Injury, poisoning and certain other consequences of external causes complicating , unspecified trimester] Onset: 12-17-2024 Episodic Other complications of (1 source) Other specified related conditions, second trimester; Translations: [Other specified related conditions, second trimester] Onset: 01-07-2025 Episodic Other complications of (2 sources) Supervision of high risk , unspecified, second trimester; Translations: [Supervision of high risk , unspecified, second trimester] Onset: 11-19-2024 Episodic Other connective tissue disease (20 sources) Fibromyalgia; Translations: [Fibromyalgia] 05-25-2018 Episodic Other connective tissue disease (20 sources) Fibromyalgia; Translations: [Myalgia and myositis, unspecified] Episodic Other lower respiratory disease (20 sources) Dyspnea; Translations: [Shortness of breath] 10-18-2024 Episodic Comment on above: improved Other lower respiratory disease (10 sources) H/O: asthma; Translations: [Personal history of other diseases of the respiratory system] 06-22-2024 Episodic Other lower respiratory disease (1 source) Shortness of breath; Translations: [Shortness of breath] Onset: 01-07-2025 Episodic Other nutritional; endocrine; and metabolic disorders (10 sources) Body mass index 30+ - obesity; Translations: [Body mass index (BMI) 33.0-33.9, adult] 10-16-2024 Chronic Other and delivery including normal (20 sources) ; Translations: [Encounter for supervision of normal , unspecified, unspecified trimester] Onset: 07-27-2024 Episodic Comment on above: SM IAL SROM boy kate (Carrier testing don e in prior ), baby low risk, gender female GBS neg, Anatomy US normal. carrier neg. , genetic testing low risk GBS neg, (Carrier te sting done in prior ), baby low risk, gender female Other upper respiratory infections (20 sources) Sinusitis; Translations: [Chronic sinusitis, unspecified] 03-04-2022 Chronic Polyhydramnios and other problems of amniotic cavity (10 sources) Spontaneous rupture of membranes 09-23-2022 Episodic Residual codes; unclassified (1 source) 35 weeks gestation of ; Translations: [35 weeks gestation of ] Onset: 01-07-2025 Episodic Residual codes; unclassified (1 source) 29 weeks gestation of ; Translations: [29 weeks gestation of ] Onset: 12-17-2024 Episodic Residual codes; unclassified (1 source) 25 weeks gestation of ; Translations: [25 weeks gestation of ] Onset: 10-30-2024 Episodic Residual codes; unclassified (1 source) 24 weeks gestation of ; Translations: [24 weeks gestation of ] Onset: 10-18-2024 Episodic Sexually transmitted infections (not HIV or hepatitis) (1 source) Cervical high risk human papillomavirus (HPV) DNA test positive; Translations: [Cervical high risk human papillomavirus (HPV) DNA test positive] Onset: 01-07-2025 Episodic Past or Other Problems Problem Classification Problem Date Documented Da te Episodic/Chronic Other complications of (20 sources) Supervision of high risk , unspecified, unspecified trimester; Translations: [Supervision of unspecified high-risk ] Onset: 07-06-2024 Episodic Other screening for suspected conditions (not mental disorders or infectious disease) (1 source) Encounter for screening for malignant neoplasm of cervix; Translations: [Encounter for screening for malignant neoplasm of cervix] Onset: 04-03-2024 Episodic Residual codes; unclassified (1 source) 9 weeks gestation of ; Translations: [9 weeks gestation of ] Onset: 07-06-2024 Episodic Unclassified (10 sources) Spontaneous rupture of membranes; Translations: [Spontaneous rupture of amniotic membranes] 09-23-2022 Results Test Name Value Interpretation Reference Range Facility Rule out Beta Strep (Grp. B) on 01-10-2025 [place] Group B Beta Streptococcus is not isolated. Normal [facility] Comment on above: Performed By: #### M 100.5215 ####[facility] [address] [place], [place], [id number] [employer] Office Visit Reporton 01-07-2025 [employer] Office Visit Report [facility] [address], [address] [place] [address] OFFICE VISIT Date of Service: 01/07/25 MR#: [id number] Acct: [id number] Name: GRANT RUVALCABA Rep #: [id number] : 2000 Provider: SPIKE Adams ams Age/Sex: 24/F Location: [facility] Status: Signed Intake Vital Signs 11/13/24 13:07 12/25/24 13:55 01/07/25 14:27 Height 5 ft 1 in 5 ft 1 in 5 ft 1 in Weight: 198 lb 203 lb 2 oz BMI 37.4 38.3 BP 120/83 H 112/81 H Intake Visit Reasons: 36 wk ob Chief Complaint: 36wk OB Coal Sample Tester Required: No Is patient in pain?: No Allergies No Known Allergies Allergy (Verified 01/07/25 14:25) Medications ???Medication ???Instructions ???Recorded ???Confirmed ???Type ferrous sulfate 140 mg (45 mg 140 mg PO DAILY 03/04/22 01/07/25 History iron) tablet,extended release cholecalciferol (vitamin D3) 25 25 mcg PO QDAY 03/13/24 01/07/25 H istory mcg (1,000 unit) capsule docosahexaenoic acid 200 mg mg PO 06/22/24 01/07/25 History capsule ( DHA) sertraline 50 mg tablet (Zoloft) 50 mg PO DAILY #90 tabs 09/04/24 0 01/07/25 Rx Last Menstrual Period: 05/02/24 : No PFSH PFSH Medical History History of asthma Fatigue normal course Vaginal delivery Depression Contact with and (suspected) exposure to other viral communicable diseases Sinusitis Fibromyalgia Back pain Severe headache Family History Grandmother Breast cancer Paternal Aunt Breast cancer Other Migraines Social History adopted: No household members: spouse and children housing: house number of children: 1 current occupation: [employer] current occupational exposures/hazards: No pets and animals: Yes pets and animals: dog(s) history of recent travel: No sexually active: Yes Smoking Status: Never smoker alcohol intake: current alcohol intake frequency: holidays/special occasions only details: Not while substance use type: does not use well-balanced diet: daily or most days caffeine: Yes Type: coffee eating out: rarely or never during the past year weight has: remained stable what type of physical activity do you participate in: walking frequency: 1-2 times per week duration: 15-30 minutes/day eveline/faith: Scientologist seatbelt use: always do you feel safe at home: Yes additional social history: : [employer] History 2 Elective abortions Hx Para 1 Spontaneous abortions Hx # Term Pregnancies 1 Ectopic pregnancies Hx # Pregnancies Multiple births # of living children 1 Past Pregnancies Del. Date Name GA/Weeks Outcome Route Bth Weight Infant Gen Labor Lgth Anesthesia Del Locatn Provider FOB 09/23/22 Kate 38 live - full term 7lbs 6oz Male epidural [facility] S katia Carr [place] Delivery Date: 09/23/22 Last Updated by: Jenna Ahmadi SM IAL SROM boy kate HPI 36 wk ob Details: GRANT RUVALCABA is a 24 year old who presents for routine OB visit. OB Visit ERMA Calculator Estimated Delivery Date Method Current WG Current Estimate 02/06/25 LMP (Certain) 35w 5d Other Estimates 02/05/25 Ultrasound #1 35w 6d Expected Delivery Route/Plan Labor Preferences- CB/BF classes: no labor support person: [place] labor intervention preferences: [] pain management options preferred: epidural if requested cut cord/dad catch: cord : no PP control planned: discussed discussed possible routes of delivery and associated risks: [] special requests: [] Specific Issue/Plans Covid status: [] Flu vaccine: [] Tdap vaccine: [] Rhogam: NA LARC form signed: yes Problem list reviewed and updated with the most current plan of care details and appropriate orders placed. Relevant counseling for the gestational age provided. Continue routine care and follow up unless otherwise noted in visit notes/problem list details Initial Weight: 171 lb Date -???-???-???-???-???-?? ?-???-???-???-???-???-? ??- EGA Weight BP Urine Prot -???-???-???-???-???-?? ?-???-???-???-???-???-? ??- Glucose FHR FuHt Pres Dilation -???-???-???-???-???-?? ?-???-???-???-???-???-? ??- Effaced St Visit Note 07/06/24 -???-???-???-???-???-?? ?-???-???-???-???-???-? ??- 9w 2d 171 lb (+0 oz) 115/78 -???-???-???-???-???-?? ?-???-???-???-???-???-? ??- 168 -???-???-???-???-???-?? ?-???-???-???-???-???-? ??- KW- CRL cons with dates. accepts NIPT. 08/07/24 -???-???-???-???-???-?? ?-???-???-???-???-???-? ??- 13w 6d 168 lb 6 oz (-2 lb 10 oz) 123/82 Negative -???-???-???-???-???-?? ?-???-???-? (more content not included)... Normal [facility] Screening beta-hemolytic Str eptococcus cultureOrdered By: Sharri Begum on 01-07-2025 Beta-hemolytic Streptococcus culture Group B Beta Streptococcus is not isolated. 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 Lynsey Nails DO Age/Sex: 24/F Location: [facility] Status: Signed Intake Vital Signs 10/30/24 13:25 12/11/24 13:38 12/25/24 13:55 Height 5 ft 1 in 5 ft 1 in 5 ft 1 in Weight: 198 lb BMI 37.4 BP 120/83 H Intake Visit Reasons: 34 wk ob Chief Complaint: 34wk OB Coal Sample Tester Required: No Is patient in pain?: No Allergies No Known Allergies Allergy (Verified 12/25/24 13:53) Medications ???Medication ???Instructions ???Recorded ???Confirmed ???Type ferrous sulfate 140 mg (45 mg 140 mg PO DAILY 03/04/22 12/25/24 History iron) tablet,extended release cholecalciferol (vitamin D3) 25 25 mcg PO QDAY 03/13/24 12/25/24 H istory mcg (1,000 unit) capsule docosahexaenoic acid 200 mg mg PO 06/22/24 12/25/24 History capsule ( DHA) sertraline 50 mg tablet (Zoloft) 50 mg PO DAILY #90 tabs 09/04/24 0 12/25/24 Rx Last Menstrual Period: 05/02/24 : No PFSH PFSH Medical History History of asthma Fatigue normal course Vaginal delivery Depression Contact with and (suspected) exposure to other viral communicable diseases Sinusitis Fibromyalgia Back pain Severe headache Family History Grandmother Breast cancer Paternal Aunt Breast cancer Other Migraines Social History adopted: No household members: spouse and children housing: house number of children: 1 current occupation: [employer] current occupational exposures/hazards: No pets and animals: Yes pets and animals: dog(s) history of recent travel: No sexually active: Yes Smoking Status: Never smoker alcohol intake: current alcohol intake frequency: holidays/special occasions only details: Not while substance use type: does not use well-balanced diet: daily or most days caffeine: Yes Type: coffee eating out: rarely or never during the past year weight has: remained stable what type of physical activity do you participate in: walking frequency: 1-2 times per week duration: 15-30 minutes/day eveline/faith: Scientologist seatbelt use: always do you feel safe at home: Yes additional social history: : [employer] [employer] History 2 Elective abortions Hx Para 1 Spontaneous abortions Hx # Term Pregnancies 1 Ectopic pregnancies Hx # Pregnancies Multiple births # of living children 1 Past Pregnancies Del. Date Name GA/Weeks Outcome Route Bth Weight Infant Gen Labor Lgth Anesthesia Del Locatn Provider FOB 09/23/22 Kate 38 live - full term 7lbs 6oz Male epidural [facility] S katia Carr [place] Delivery Date: 09/23/22 Last Updated by: Jenna Ahmadi SM IAL SROM boy kate HPI 34 wk ob Details: GRANT RUVALCABA is a 24 year old who presents for routine OB visit. OB Visit ERMA Calculator Estimated Delivery Date Method Current WG Current Estimate 02/06/25 LMP (Certain) 33w 6d Other Estimates 02/05/25 Ultrasound #1 34w 0d Expected Delivery Route/Plan Labor Preferences- CB/BF classes: no labor support person: Killian labor intervention preferences: [] pain management options preferred: epidural if requested cut cord/dad catch: cord : no PP control planned: discussed discussed possible routes of delivery and associated risks: [] special requests: [] Specific Issue/Plans Covid status: [] Flu vaccine: [] Tdap vaccine: [] Rhogam: NA LARC form signed: yes Problem list reviewed and updated with the most current plan of care details and appropriate orders placed. Relevant counseling for the gestational age provided. Continue routine care and follow up unless otherwise noted in visit notes/problem list details Initial Weight: 171 lb Date -???-???-???-???-???-?? ?-???-???-???-???-???-? ??- EGA Weight BP Urine Prot -???-???-???-???-???-?? ?-???-???-???-???-???-? ??- Glucose FHR FuHt Pres Dilation -???-???-???-???-???-?? ?-???-???-???-???-???-? ??- Effaced St Visit Note 07/06/24 -???-???-???-???-???-?? ?-???-???-???-???-???-? ??- 9w 2d 171 lb (+0 oz) 115/78 -???-???-???-???-???-?? ?-???-???-???-???-???-? ??- 168 -???-???-???-???-???-?? ?-???-???-???-???-???-? ??- KW- CRL cons with dates. accepts NIPT. 08/07/24 -???-???-???-???-???-?? ?-???-???-???-???-???-? ??- 13w 6d 168 lb 6 oz (-2 lb 10 oz) 123/82 Negative -???-???-???-???-???-?? ?-???-???-???-???-???-? ??- (more content not included)... 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 [facility] [address], [address] [place] [address] OFFICE VISIT Date of Service: 12/11/24 MR#: [id number] Acct: [id number] Name: GRANT RUVALCABA Rep #: [id number] : 2000 Provider: ACCOUNTANT CLERKKelsey presley Age/Sex: 24/F Location: [facility] Status: Signed Intake Vital Signs 10/30/24 13:25 12/05/24 22:00 12/11/24 13:38 Height 5 ft 1 in 5 ft 1 in 5 ft 1 in Weight: 192 lb 4 oz BMI 36.3 BP 118/86 H Intake Visit Reasons: 32 wk ob Chief Complaint: 32 Week OB Coal Sample Tester Required: No Is patient in pain?: No Allergies No Known Allergies Allergy (Verified 12/11/24 13:48) Medications ???Medication ???Instructions ???Recorded ???Confirmed ???Type ferrous sulfate 140 mg (45 mg 140 mg PO DAILY 03/04/22 12/11/24 History iron) tablet,extended release cholecalciferol (vitamin D3) 25 25 mcg PO QDAY 03/13/24 12/11/24 H istory mcg (1,000 unit) capsule docosahexaenoic acid 200 mg mg PO 06/22/24 12/11/24 History capsule ( DHA) sertraline 50 mg tablet (Zoloft) 50 mg PO DAILY #90 tabs 09/04/24 0 12/11/24 Rx Last Menstrual Period: 05/02/24 Zika: Zika virus screening: Negative : No PFSH PFSH Medical History History of asthma Fatigue normal course Vaginal delivery Depression Contact with and (suspected) exposure to other viral communicable diseases Sinusitis Fibromyalgia Back pain Severe headache Family History Grandmother Breast cancer Paternal Aunt Breast cancer Other Migraines Social History adopted: No household members: spouse and children housing: house number of children: 1 current occupation: [employer] current occupational exposures/hazards: No pets and animals: Yes pets and animals: dog(s) history of recent travel: No sexually active: Yes Smoking Status: Never smoker alcohol intake: current alcohol intake frequency: holidays/special occasions only details: Not while substance use type: does not use well-balanced diet: daily or most days caffeine: Yes Type: coffee eating out: rarely or never during the past year weight has: remained stable what type of physical activity do you participate in: walking frequency: 1-2 times per week duration: 15-30 minutes/day eveline/faith: Scientologist seatbelt use: always do you feel safe at home: Yes additional social history: : [place] [employer] History 2 Elective abortions Hx Para 1 Spontaneous abortions Hx # Term Pregnancies 1 Ectopic pregnancies Hx # Pregnancies Multiple births # of living children 1 Past Pregnancies Del. Date Name GA/Weeks Outcome Route Bth Weight Gen Labor Lgth Anesthesia Del Locatn Provider FOB 09/23/22 Kate 38 live - full term 7lbs 6oz Male epidural [facility] S katia Carr [place] Delivery Date: 09/23/22 Last Updated by: Jenna Ahmadi SM IAL SROM boy kate HPI 32 wk ob Details: GRANT RUVALCABA is a 24 year old who presents for routine OB visit. OB Visit ERMA Calculator Estimated Delivery Date Method Current WG Current Estimate 02/06/25 LMP (Certain) 31w 6d Other Estimates 02/05/25 Ultrasound #1 32w 0d Expected Delivery Route/Plan Labor Preferences- CB/BF classes: no labor support person: Killian labor intervention preferences: [] pain management options preferred: epidural if requested cut cord/dad catch: cord : no PP control planned: discussed discussed possible routes of delivery and associated risks: [] special requests: [] Specific Issue/Plans Covid status: [] Flu vaccine: [] Tdap vaccine: [] Rhogam: NA LARC form signed: yes Problem list reviewed and updated with the most current plan of care details and appropriate orders placed. Relevant counseling for the gestational age provided. Continue routine care and follow up unless otherwise noted in visit notes/problem list details Initial Weight: 171 lb Date -???-???-???-???-???-?? ?-???-???-???-???-???-? ??- EGA Weight BP Urine Prot -???-???-???-???-???-?? ?-???-???-???-???-???-? ??- Glucose FHR FuHt Pres Dilation -???-???-???-???-???-?? ?-???-???-???-???-???-? ??- Effaced St Visit Note 07/06/24 -???-???-???-???-???-?? ?-???-???-???-???-???-? ??- 9w 2d 171 lb (+0 oz) 115/78 -???-???-???-???-???-?? ?-???-???-???-???-???-? ??- 168 -???-???-???-???-???-?? ?-???-???-???-???-???-? ??- KW- CRL cons with dates. accepts NIPT. 08/07/24 -???-???-???-???-???-?? ?-???-???-???-???-???-? ??- 13w 6d 168 lb 6 oz (-2 lb 10 oz) 123/82 Negat (more content not included)... Normal [facility] Bilirubin Test strip Ql (U)O rdered By: Lynsey Jones on 12-05-2024 Bilirubin Ql (U) Negative Negative [facility] Ketones Test strip Ql (U)Ord ered By: Lynsey Jones on 12-05-2024 Ketones Ql (U) Negative Negative [facility] OB Triage Physician Noteon 0 12-05-2024 OB Triage Physician Note [facility] Medical Records Department [address] [place] [address] OB Triage Physician Note 12/05/24 2304 MR#: [id number] Acct: [id number] Name: GRANT RUVALCABA Rep #: [id number] : 2000 24 From: Lynsey Ambrocio DO PCP: Neda Keith PA-C Status:DEP CLI Y Location: [facility] - General General Date of Admission: 12/05/24 Date of Service: 12/05/24 HPI Narrative GRANT RUVALCABA, is a 24 y/o @ 31 weeks who presents to L D after her belly was pushed on by her 2 year old. She was worried about the baby and wanted to get checked out. Maternal Data Information ERMA Calculator Estimated Delivery Date Method Current WG Current Estimate 02/06/25 LMP (Certain) 31w 2d Other Estimates 02/05/25 Ultrasound #1 31w 3d PFSH PFSH Medical History History of asthma Fatigue normal course Vaginal delivery Depression Contact with and (suspected) exposure to other viral communicable diseases Sinusitis Fibromyalgia Back pain Severe headache Home Medications ???Medication ???Instructions ???Recorded ???Last Taken ???Type ferrous sulfate 140 mg (45 mg 140 mg PO DAILY 03/04/22 12/05/24 History iron) tablet,extended release cholecalciferol (vitamin D3) 25 25 mcg PO QDAY 03/13/24 12/05/24 H istory mcg (1,000 unit) capsule docosahexaenoic acid 200 mg mg PO 06/22/24 12/05/24 History capsule ( DHA) sertraline 50 mg tablet (Zoloft) 50 mg PO DAILY #90 tabs 09/04/24 0 12/05/24 Rx Allergy/AdvReac Type Severity Reaction Status Date / Time No Known Allergies Allergy Verified 12/05/24 21:58 Family History Grandmother Breast cancer Paternal Aunt Breast cancer Other Migraines Social History adopted: No household members: spouse and children housing: house number of children: 1 current occupation: [employer] current occupational exposures/hazards: No pets and animals: Yes pets and animals: dog(s) history of recent travel: No sexually active: Yes Smoking Status: Never smoker alcohol intake: current alcohol intake frequency: holidays/special occasions only details: Not while substance use type: does not use well-balanced diet: daily or most days caffeine: Yes Type: coffee eating out: rarely or never during the past year weight has: remained stable what type of physical activity do you participate in: walking frequency: 1-2 times per week duration: 15-30 minutes/day eveline/faith: Scientologist seatbelt use: always do you feel safe at home: Yes additional social history: : [place] [employer] History 2 Elective abortions Hx Para 1 Spontaneous abortions Hx # Term Pregnancies 1 Ectopic pregnancies Hx # Pregnancies Multiple births # of living children 1 Past Pregnancies Del. Date Name GA/Weeks Outcome Route Bth Weight Gen Labor Lgth Anesthesia Del Locatn Provider FOB 09/23/22 Kate 38 live - full term 7lbs 6oz Male epidural [facility] S katia Carr [place] Delivery Date: 09/23/22 Last Updated by: Jenna Ahmadi SM IAL SROM boy kate Visit Details Expected Delivery Route/Plan Labor Preferences- CB/BF classes: no labor support person: [place]ian labor intervention preferences: [] pain management options preferred: epidural if requested cut cord/dad catch: cord : no PP control planned: discussed discussed possible routes of delivery and associated risks: [] special requests: [] Plans Covid status: [] Flu vaccine: [] Tdap vaccine: [] Rhogam: NA LARC form signed: yes Problem list reviewed and updated with the most current plan of care details and appropriate orders placed. Relevant counseling for the gestational age provided. Continue routine care and follow up unless otherwise noted in visit notes/problem list details OB Flowsheet Initial Weight: 171 lb Date -???-???-???-???-???-?? ?-???-???-???-???-???-? ??- EGA Weight BP Urine Prot -???-???-???-???-???-?? ?-???-???-???-???-???-? ??- Glucose FHR FuHt Pres Dilation -???-???-???-???-???-?? ?-???-???-???-???-???-? ??- Effaced St Visit Note 07/06/24 -???-???-???-???-???-?? ?-???-???-???-???-???-? ??- 9w 2d 171 lb (+0 oz) 115/78 -???-???-???-???-???-?? ?-???-???-???-???-???-? ??- 168 -???-???-???-???-???-?? ?-???-???-???-???-???-? ??- KW- CRL cons with dates. accepts NIPT. 08/07/24 -???-???-???-???-???-?? ?-???-???-???-???-???-? ??- 13w 6d 168 lb 6 oz (-2 lb 10 oz) 123/82 Negative -???-???-???-???-???-?? ?-???-???-???-???-???-? ??- Negative 160 -???-???-???-???-???-?? ?-???-???-???-???-???-? ??- SM- no vb lo f (more content not included)... Normal [facility] Protein Test strip Ql (U)Ord ered By: Lynsey Jones on 12-05-2024 Protein Ql (U) Negative Negative [facility] Urinalysis, Routine (Dipstic k)on 12-05-2024 BILIRUBIN URINE Negative Normal Negative [facility] Comment on above: Order Comment: FLAQUITO MILLER TO SPECIFY Performed By: #### L 400.2010 ####[facility] [id number] [place], [address] GLUCOSE, UR Normal Normal Normal [facility] Comment on above: Order Comment: FLAQUITO MILLER TO SPECIFY Performed By: #### L 400.2010 ####[facility] [address] [place], [address] KETONE UR Negative Normal Negative [facility] Comment on above: Order Comment: COLLE CTOR TO SPECIFY Performed By: #### L 400.2010 ####[facility] [address] [place], [address] LEUK ESTERASE 100 /ul Abnormal Negative [facility] Comment on above: Order Comment: COLLE CTOR TO SPECIFY Performed By: #### L 400.2010 ####[facility] [address] [place], [address] OCCULT BLOOD-UR Negative Normal Negative [facility] Comment on above: Order Comment: FLAQUITO CTOR TO SPECIFY Performed By: #### L 400.2010 ####[facility] [id number] [place], [address] pH UR 6.5 Normal 5.0 - 8.0 [facility] Comment on above: Order Comment: FLAQUITO CTOR TO SPECIFY Performed By: #### L 400.2010 ####[facility] [address] [place], [address] PROT DIPSTX Negative Normal Negative [facility] Comment on above: Order Comment: FLAQUITO CTOR TO SPECIFY Performed By: #### L 400.2010 ####[facility] [address] [place], [address] SP.GR. DIPSTX 1.010 Normal 1.002-1.030 [facility] Comment on above: Order Comment: FLAQUITO CTOR TO SPECIFY Performed By: #### L 400.2010 ####[facility] [id number] [place], [address] UROBILI Normal Normal Normal [facility] Comment on above: Order Comment: FLAQUITO CTOR TO SPECIFY Performed By: #### L 400.2010 ####[facility] [address] [place], [address] Urine clarityOrdered By: Christina Jones on 12-05-2024 Clarity (U) Clear Clear [facility] Comment on above: Order Comment: FLAQUITO LEEOR TO SPECIFY Performed By: #### L 400.2010 ####[facility] [id number] [place], [place], [id number] Urine color determinationOrd ered By: Lynsey Jones on 12-05-2024 Color (U) Yellow Yellow [facility] Comment on above: Order Comment: FLAQUITO LEEOR TO SPECIFY Performed By: #### L 400.2010 ####[facility] [address] [place], [place], [id number] Urine glucose detectionOrder ed By: Lynsey Jones on 12-05-2024 Glucose Ql (U) Normal mg/dl Normal [facility] Urine leukocyte esterase det ection by dipstickOrdered By: Lynsey Jones on 12-05-2024 Leukocyte esterase Test strip Ql (U) 100 /ul High Negative [facility] Urine nitrite test by dipsti ckOrdered By: Lynsey Jones on 12-05-2024 Nitrite Ql (U) Negative Negative [facility] Comment on above: Order Comment: FLAQUITO LEEOR TO SPECIFY Performed By: #### L 400.2010 ####[facility] [address] [place], [place], [id number] Urine pHOrdered By: Lynsey Jones on 12-05-2024 pH (U) 6.5 [pH] 5.0 - 8.0 [facility] Urine specific gravity measu rementOrdered By: Lynsey Jones on 12-05-2024 Specific gravity (U) [Rel density] 1.010 1.002-1.030 [facility] Urine urobilinogen measureme ntOrdered By: Lynsey Jones on 12-05-2024 Urobilinogen Ql (U) Normal mg/dl Normal [facility] [facility] - Chemistry and C hemistry - challengeOrdered By: Lynsey Jones on 11-27-2024 Glucose Ql (U) Negative [facility] - UrinalysisOrder ed By: Lynsey Jones on 11-27-2024 Protein Ql (U) Negative [facility] [employer] Office Visit Reporton 11-27-2024 [employer] Office Visit Report [facility]'s [address], [address] [place] [address] OFFICE VISIT Date of Service: 11/27/24 MR#: [id number] Acct: [id number] Name: GRANT RUVALCABA Rep #: [id number] : 2000 Provider: Dr. Lynsey Nails DO Age/Sex: 24/F Location: [facility] Status: Signed Intake Vital Signs 10/30/24 13:25 11/13/24 13:07 11/27/24 13:20 Height 5 ft 1 in 5 ft 1 in 5 ft 1 in Weight: 192 lb BMI 36.2 BP 109/72 Intake Visit Reasons: 30 wk ob Chief Complaint: 30 Week OB Coal Sample Tester Required: No Is patient in pain?: No Allergies No Known Allergies Allergy (Verified 11/27/24 13:21) Medications ???Medication ???Instructions ???Recorded ???Confirmed ???Type ferrous sulfate 140 mg (45 mg 140 mg PO DAILY 03/04/22 11/27/24 History iron) tablet,extended release cholecalciferol (vitamin D3) 25 25 mcg PO QDAY 03/13/24 11/27/24 H istory mcg (1,000 unit) capsule docosahexaenoic acid 200 mg mg PO 06/22/24 11/27/24 History capsule ( DHA) sertraline 50 mg tablet (Zoloft) 50 mg PO DAILY #90 tabs 09/04/24 0 11/27/24 Rx Last Menstrual Period: 05/02/24 Zika: Zika virus screening: Negative : No PFSH PFSH Medical History History of asthma Fatigue normal course Vaginal delivery Depression Contact with and (suspected) exposure to other viral communicable diseases Sinusitis Fibromyalgia Back pain Severe headache Family History Grandmother Breast cancer Paternal Aunt Breast cancer Other Migraines Social History adopted: No household members: spouse and children housing: house number of children: 1 current occupation: [employer] current occupational exposures/hazards: No pets and animals: Yes pets and animals: dog(s) history of recent travel: No sexually active: Yes Smoking Status: Never smoker alcohol intake: current alcohol intake frequency: holidays/special occasions only details: Not while substance use type: does not use well-balanced diet: daily or most days caffeine: Yes Type: coffee eating out: rarely or never during the past year weight has: remained stable what type of physical activity do you participate in: walking frequency: 1-2 times per week duration: 15-30 minutes/day eveline/faith: Scientologist seatbelt use: always do you feel safe at home: Yes additional social history: : [employer] History 2 Elective abortions Hx Para 1 Spontaneous abortions Hx # Term Pregnancies 1 Ectopic pregnancies Hx # Pregnancies Multiple births # of living children 1 Past Pregnancies Del. Date Name GA/Weeks Outcome Route Bth Weight Gen Labor Lgth Anesthesia Del Locatn Provider FOB 09/23/22 Kate 38 live - full term 7lbs 6oz Male epidural [facility] Delivery Date: 09/23/22 Last Updated by: Jenna Ahmadi SM IAL SROM boy kate HPI 30 wk ob Details: GRANT RUVALCABA is a 24 year old who presents for routine OB visit. OB Visit ERMA Calculator Estimated Delivery Date Method Current WG Current Estimate 02/06/25 LMP (Certain) 29w 6d Other Estimates 02/05/25 Ultrasound #1 30w 0d Expected Delivery Route/Plan Labor Preferences- CB/BF classes: no labor support person: Killian labor intervention preferences: [] pain management options preferred: epidural if requested cut cord/dad catch: cord : no PP control planned: discussed discussed possible routes of delivery and associated risks: [] special requests: [] Specific Issue/Plans Covid status: [] Flu vaccine: [] Tdap vaccine: [] Rhogam: NA LARC form signed: yes Problem list reviewed and updated with the most current plan of care details and appropriate orders placed. Relevant counseling for the gestational age provided. Continue routine care and follow up unless otherwise noted in visit notes/problem list details Initial Weight: 171 lb Date -???-???-???-???-???-?? ?-???-???-???-???-???-? ??- EGA Weight BP Urine Prot -???-???-???-???-???-?? ?-???-???-???-???-???-? ??- Glucose FHR FuHt Pres Dilation -???-???-???-???-???-?? ?-???-???-???-???-???-? ??- Effaced St Visit Note 07/06/24 -???-???-???-???-???-?? ?-???-???-???-???-???-? ??- 9w 2d 171 lb (+0 oz) 115/78 -???-???-???-???-???-?? ?-???-???-???-???-???-? ??- 168 -???-???-???-???-???-?? ?-???-???-???-???-???-? ??- KW- CRL cons with dates. accepts NIPT. 08/07/24 -???-???-???-???-???-?? ?-???-???-???-???-???-? ??- 13w 6d 168 lb 6 oz (-2 lb 10 oz) 123/82 Neg (more content not included)... Normal [facility] Absolute lymphocyte countOrd ered By: Sharri Begum on 11-13-2024 Lymphocytes Auto (Unsp spec) [#/Vol] 1.33 10*3/uL 0.83-4.51 [facility] Absolute neutrophil countOrd ered By: Sharri Begum on 11-13-2024 Neutrophils (Bld) [#/Vol] 7.9 10*3/uL High 2.0-7.7 [facility] Automated lymphocyte count a s percentage of total leukocytesOrdered By: Sharri Begum on 11-13-2024 Lymphocytes/100 WBC Auto (Unsp spec) 12.8 % Low 19-41 [facility] Basophil percentageOrdered B y: Sharri Begum on 11-13-2024 Basophils/100 WBC (Bld) 0.2 % 0-1 [facility] CBC W/Diff, Automatedon Absolute Lymph 1.33 X10 3/uL Normal 0.83-4.51 [facility] Comment on above: Performed By: #### L 3890.6006, L100.0100, L501.0250, L509.8002 ####[facility] [address] [place], [address] Absolute Neut 7.9 X10 3/uL High 2.0-7.7 [facility] Comment on above: Performed By: #### L 3890.6006, L100.0100, L501.0250, L509.8002 ####[facility] [address] [place], [address] Basophils/100 WBC (Bld) 0.2 % Normal 0-1 [facility] Comment on above: Performed By: #### L 3890.6006, L100.0100, L501.0250, L509.8002 ####[facility] [address] [place], [address] Eosinophils/100 WBC (Bld) 1.9 % Normal 0-5 [facility] Comment on above: Performed By: #### L 3890.6006, L100.0100, L501.0250, L509.8002 ####[facility] [address] [place], [address] Erythrocyte distribution width (RBC) [Ratio] 13.2 % Normal 11.6-14.6 [facility] Comment on above: Performed By: #### L 3890.6006, L100.0100, L501.0250, L509.8002 ####[facility] [address] [place], [address] Hematocrit (Bld) [Volume fraction] 34.6 % Low 37-47 [facility] Comment on above: Performed By: #### L 3890.6006, L100.0100, L501.0250, L509.8002 ####[facility] [address] [place], [address] Hemoglobin (Bld) [Mass/Vol] 11.8 g/dL Low 12.0-15.0 [facility] Comment on above: Performed By: #### L 3890.6006, L100.0100, L501.0250, L509.8002 ####[facility] [address] [place], [address] IG% 0.800 Normal 0.0-0.9 [facility] Comment on above: Result Comment: IG% - Immature Granulocytes (promyelocytes, myelocytes and metamyelocytes) > 1% indicates that a LEFT SHIFT is Present. Performed By: #### L 3890.6006, L100.0100, L501.0250, L509.8002 ####[facility] [address] [place], [address] Lymphocytes/100 WBC (Bld) 12.8 % Low 19-41 [facility] Comment on above: Performed By: #### L 3890.6006, L100.0100, L501.0250, L509.8002 ####[facility] [address] [place], [address] MCH (RBC) [Entitic mass] 31.6 pg Normal 27.0-32.0 [facility] Comment on above: Performed By: #### L 3890.6006, L100.0100, L501.0250, L509.8002 ####[facility] [address] [place], [address] MCHC (RBC) [Mass/Vol] 34.1 g/dL Normal 32-36 [facility] Comment on above: Performed By: #### L 3890.6006, L100.0100, L501.0250, L509.8002 ####[facility] [address] [place], [address] MCV (RBC) [Entitic vol] 92.8 fL Normal 81-99 [facility] Comment on above: Performed By: #### L 3890.6006, L100.0100, L501.0250, L509.8002 ####[facility] [address] [place], [address] Monocytes/100 WBC (Bld) 8.9 % Normal 0-10 [facility] Comment on above: Performed By: #### L 3890.6006, L100.0100, L501.0250, L509.8002 ####[facility] [address] [place], [address] Neutrophils/100 WBC (Bld) 75.4 % High 47-70 [facility] Comment on above: Performed By: #### L 3890.6006, L100.0100, L501.0250, L509.8002 ####[facility] [address] [place], [address] Nucleated RBC (Bld) [#/Vol] 0 10*3/uL Normal 0-5 [facility] Comment on above: Performed By: #### L 3890.6006, L100.0100, L501.0250, L509.8002 ####[facility] [address] [place], [address] Platelet mean volume (Bld) [Entitic vol] 10.9 fL Normal 6.2-12.0 [facility] Comment on above: Performed By: #### L 3890.6006, L100.0100, L501.0250, L509.8002 ####[facility] [address] [place], [address] Platelets (Bld) [#/Vol] 248 10*3/uL Normal 150-450 [facility] Comment on above: Performed By: #### L 3890.6006, L100.0100, L501.0250, L509.8002 ####[facility] [address] [place], [address] RBC (Bld) [#/Vol] 3.73 10*6/uL Low 4.2-5.4 [facility] Comment on above: Performed By: #### L 3890.6006, L100.0100, L501.0250, L509.8002 ####[facility] [address] [place], [address] RDW SD 44.3 fl High 35.1-43.9 [facility] Comment on above: Performed By: #### L 3890.6006, L100.0100, L501.0250, L509.8002 ####[facility] [address] [place], [address] WBC (Bld) [#/Vol] 10.4 10*3/uL Normal 4.4-11.0 [facility] Comment on above: Performed By: #### L 3890.6006, L100.0100, L501.0250, L509.8002 ####[facility] [address] [place], [address] Eosinophil percentageOrdered By: Sharri Begum on 11-13-2024 Eosinophils/100 WBC (Bld) 1.9 % 0-5 [facility] Erythrocyte distribution wid th ratioOrdered By: Sharri Begum on 11-13-2024 Erythrocyte distribution width (RBC) [Ratio] 13.2 % 11.6-14.6 [facility] Erythrocyte distribution wid th standard deviationOrdered By: Sharri Begum on 11-13-2024 Erythrocyte distribution width (RBC) [Ratio] 44.3 fl High 35.1-43.9 [facility] Glucose Challenge Gest 1H 50 purnima 11-13-2024 GLU GEST 50g 1H 95 mg/dL Normal 70-140 [facility] Comment on above: Performed By: #### L 3890.6006, L100.0100, L501.0250, L509.8002 ####[facility] [address] [place], [address] Glucose measurement at 2 donald rs post-dose gestational glucose tolerance testOrdered By: Sharri Begum on 11-13-2024 Glucose [Mass/Vol] 95 mg/dL 70-140 [facility] HIVon 11-13-2024 HIV Non-Reactive Normal Nonreactive [facility] Comment on above: Result Comment: Non- Reactive Reactive Repeatedly reactive samples must be confirmed according to CDC recommended confirmatory algorithms. The subresults for either HIVAG or AHIV can be used as an aid in the selection of the confirmation algorithm for reactive samples. Send out specimens with Reactive results to [facility] for confirmation. Order the HIV antibody detection and differentiation: #[id number] Performed By: #### L 3890.6006, L100.0100, L501.0250, L509.8002 ####[facility] [address] [place], [address] Hematocrit Auto (Bld) [Volum e fraction]Ordered By: Sharri Begum on 11-13-2024 Hematocrit (Bld) [Volume fraction] 34.6 % Low 37-47 [facility] Hemoglobin measurementOrdere d By: Sharri Begum on 11-13-2024 Hemoglobin (Bld) [Mass/Vol] 11.8 g/dL Low 12.0-15.0 [facility] Immature granulocytes/100 WB C Auto (Bld)Ordered By: Sharri Begum on 11-13-2024 Immature granulocytes/100 WBC (Bld) 0.800 % 0.0-0.9 [facility] Comment on above: IG% - Immature Granu locytes (promyelocytes, myelocytes and metamyelocytes) > 1% indicates that a LEFT SHIFT is Present. Laboratory - Chemistry and C hemistry - challengeOrdered By: Imani Sullivan on 11-13-2024 Glucose Ql (U) Negative [facility] - UrinalysisOrder ed By: Imani Sullivan on 11-13-2024 Protein Ql (U) Negative [facility] MCV (mean corpuscular volume ) determinationOrdered By: Sharri Begum on 11-13-2024 MCV (RBC) [Entitic vol] 92.8 fL 81-99 [facility] Mean corpuscular hemoglobin (MCH) determinationOrdered By: Sharri Begum on 11-13-2024 MCH (RBC) [Entitic mass] 31.6 pg 27.0-32.0 [facility] Mean corpuscular hemoglobin concentration (MCHC) determinationOrdered By: Sharri Begum on 11-13-2024 MCHC (RBC) [Mass/Vol] 34.1 g/dL 32-36 [facility] Mean platelet volume determi nationOrdered By: Sharri Begum on 11-13-2024 Platelet mean volume (Bld) [Entitic vol] 10.9 fL 6.2-12.0 [facility] Monocyte percentageOrdered B y: Sharri Begum on 11-13-2024 Monocytes/100 WBC (Bld) 8.9 % 0-10 [facility] Neutrophil percentageOrdered By: Sharri Begum on 11-13-2024 Neutrophils/100 WBC (Bld) 75.4 % High 47-70 [facility] No Panel InformationOrdered By: Sharri Begum on 11-13-2024 HIV (1&2) Antibody Non-Reactive Nonreactive [facility] Comment on above: Non-ReactiveReactive Repeatedly reactive samples must be confirmed according to CDC recommended confirmatory algorithms. The subresults for either HIVAG or AHIV can be used as an aid in the selection of the confirmation algorithm for reactive samples.Send out specimens with Reactive results to [facility] for confirmation.Order the HIV antibody detection and differentiation: #[id number] Nucleated red blood cell per centageOrdered By: Sharri Begum on 11-13-2024 Nucleated RBC/100 WBC (Bld) [Ratio] 0 % 0-5 [facility] [employer] Office Visit Reporton 11-13-2024 [employer] Office Visit Report [facility]'s [address], [address] [place] [address] OFFICE VISIT Date of Service: 11/13/24 MR#: [id number] Acct: [id number] Name: GRANT RUVALCABA Rep #: [id number] : 2000 Provider: SAADIA presley Age/Sex: 24/F Location: [facility] Status: Signed Intake Vital Signs 09/04/24 15:35 10/30/24 13:25 11/13/24 13:07 Height 5 ft 5 ft 1 in 5 ft 1 in Weight: 185 lb 4 oz BMI 34.9 BP 112/78 Intake Visit Reasons: 28wk ob/glucose Chief Complaint: 28 Week OB/glucose Coal Sample Tester Required: No Is patient in pain?: No Allergies No Known Allergies Allergy (Verified 11/13/24 13:04) Medications ???Medication ???Instructions ???Recorded ???Confirmed ???Type ferrous sulfate 140 mg (45 mg 140 mg PO DAILY 03/04/22 11/13/24 History iron) tablet,extended release cholecalciferol (vitamin D3) 25 25 mcg PO QDAY 03/13/24 11/13/24 H istory mcg (1,000 unit) capsule docosahexaenoic acid 200 mg mg PO 06/22/24 11/13/24 History capsule ( DHA) sertraline 50 mg tablet (Zoloft) 50 mg PO DAILY #90 tabs 09/04/24 0 11/13/24 Rx Last Menstrual Period: 05/02/24 Zika: Zika virus screening: Negative : No PFSH PFSH Medical History History of asthma Fatigue normal course Vaginal delivery Depression Contact with and (suspected) exposure to other viral communicable diseases Sinusitis Fibromyalgia Back pain Severe headache Family History Grandmother Breast cancer Paternal Aunt Breast cancer Other Migraines Social History adopted: No household members: spouse and children housing: house number of children: 1 current occupation: [employer] current occupational exposures/hazards: No pets and animals: Yes pets and animals: dog(s) history of recent travel: No sexually active: Yes Smoking Status: Never smoker alcohol intake: current alcohol intake frequency: holidays/special occasions only details: Not while substance use type: does not use well-balanced diet: daily or most days caffeine: Yes Type: coffee eating out: rarely or never during the past year weight has: remained stable what type of physical activity do you participate in: walking frequency: 1-2 times per week duration: 15-30 minutes/day eveline/faith: Scientologist seatbelt use: always do you feel safe at home: Yes additional social history: : [employer] History 2 Elective abortions Hx Para 1 Spontaneous abortions Hx # Term Pregnancies 1 Ectopic pregnancies Hx # Pregnancies Multiple births # of living children 1 Past Pregnancies Del. Date Name GA/Weeks Outcome Route Bth Weight Gen Labor Lgth Anesthesia Del Locatn Provider FOB 09/23/22 Kate 38 live - full term 7lbs 6oz Male epidural [facility] S katia Douglaslora Killian Delivery Date: 09/23/22 Last Updated by: Jenna Ahmadi SM IAL SROM boy kate HPI 28wk ob/glucose Details: GRANT RUVALCABA is a 24 year old who presents for routine OB visit. OB Visit ERMA Calculator Estimated Delivery Date Method Current WG Current Estimate 02/06/25 LMP (Certain) 27w 6d Other Estimates 02/05/25 Ultrasound #1 28w 0d Expected Delivery Route/Plan Labor Preferences- CB/BF classes: no labor support person: Killian labor intervention preferences: [] pain management options preferred: epidural if requested cut cord/dad catch: cord : no PP control planned: discussed discussed possible routes of delivery and associated risks: [] special requests: [] Specific Issue/Plans Covid status: [] Flu vaccine: [] Tdap vaccine: [] Rhogam: NA LARC form signed: yes Problem list reviewed and updated with the most current plan of care details and appropriate orders placed. Relevant counseling for the gestational age provided. Continue routine care and follow up unless otherwise noted in visit notes/problem list details Initial Weight: 171 lb Date -???-???-???-???-???-?? ?-???-???-???-???-???-? ??- EGA Weight BP Urine Prot -???-???-???-???-???-?? ?-???-???-???-???-???-? ??- Glucose FHR FuHt Pres Dilation -???-???-???-???-???-?? ?-???-???-???-???-???-? ??- Effaced St Visit Note 07/06/24 -???-???-???-???-???-?? ?-???-???-???-???-???-? ??- 9w 2d 171 lb (+0 oz) 115/78 -???-???-???-???-???-?? ?-???-???-???-???-???-? ??- 168 -???-???-???-???-???-?? ?-???-???-???-???-???-? ??- KW- CRL cons with dates. accepts NIPT. 08/07/24 -???-???-???-???-???-?? ?-???-???-???-???-???-? ??- 13w 6d 168 lb 6 oz (-2 lb 10 o (more content not included)... Normal [facility] Platelet countOrdered By: Baljit Begum on 11-13-2024 Platelets (Bld) [#/Vol] 248 10*3/uL 150-450 [facility] RBC Auto (Bld) [#/Vol]Ordere d By: Sharri Begum on 11-13-2024 RBC (Bld) [#/Vol] 3.73 10*6/uL Low 4.2-5.4 [facility] Syphilis Antibodieson 2024 Syphilis Abs Non-Reactive Normal Nonreactive [facility] Comment on above: Performed By: #### L 3890.6006, L100.0100, L501.0250, L509.8002 ####[facility] [address] [place], [address] White blood cell (WBC) count Ordered By: Sharri Begum on 11-13-2024 WBC (Bld) [#/Vol] 10.4 10*3/uL 4.4-11.0 [facility] Laboratory - Chemistry and C hemistry - challengeOrdered By: Sharri Begum on 10-30-2024 Glucose Ql (U) Negative [facility] Laboratory - UrinalysisOrder ed By: Sharri Begum on 10-30-2024 Protein Ql (U) Negative [facility] [employer] Office Visit Reporton 10-30-2024 Steel [employer] Office Visit Report [facility]'s [address], [address] [place] [address] OFFICE VISIT Date of Service: 10/30/24 MR#: [id number] Acct: [id number] Name: GRANT RUVALCABA Rep #: [id number] : 2000 Provider: SPIKE Adams ams Age/Sex: 24/F Location: [facility] Status: Signed Intake Vital Signs 09/04/24 15:35 10/18/24 11:39 10/30/24 13:25 Height 5 ft 5 ft 1 in 5 ft 1 in Weight: 183 lb 2 oz BMI 34.6 BP 113/78 Intake Visit Reasons: 26wk ob *25w6d Chief Complaint: 26wk OB Coal Sample Tester Required: No Is patient in pain?: No Allergies No Known Allergies Allergy (Verified 10/30/24 13:23) Medications ???Medication ???Instructions ???Recorded ???Confirmed ???Type ferrous sulfate 140 mg (45 mg 140 mg PO DAILY 03/04/22 10/30/24 History iron) tablet,extended release cholecalciferol (vitamin D3) 25 25 mcg PO QDAY 03/13/24 10/30/24 H istory mcg (1,000 unit) capsule docosahexaenoic acid 200 mg mg PO 06/22/24 10/30/24 History capsule ( DHA) sertraline 50 mg tablet (Zoloft) 50 mg PO DAILY #90 tabs 09/04/24 0 10/30/24 Rx Last Menstrual Period: 05/02/24 : No Have you fallen in the past year?: No PFSH PFSH Medical History History of asthma Fatigue normal course Vaginal delivery Depression Contact with and (suspected) exposure to other viral communicable diseases Sinusitis Fibromyalgia Back pain Severe headache Family History Grandmother Breast cancer Paternal Aunt Breast cancer Other Migraines Social History adopted: No household members: spouse and children housing: house number of children: 1 current occupation: [employer] current occupational exposures/hazards: No pets and animals: Yes pets and animals: dog(s) history of recent travel: No sexually active: Yes Smoking Status: Never smoker alcohol intake: current alcohol intake frequency: holidays/special occasions only details: Not while substance use type: does not use well-balanced diet: daily or most days caffeine: Yes Type: coffee eating out: rarely or never during the past year weight has: remained stable what type of physical activity do you participate in: walking frequency: 1-2 times per week duration: 15-30 minutes/day eveline/faith: Scientologist seatbelt use: always do you feel safe at home: Yes additional social history: : [employer] online History 2 Elective abortions Hx Para 1 Spontaneous abortions Hx # Term Pregnancies 1 Ectopic pregnancies Hx # Pregnancies Multiple births # of living children 1 Past Pregnancies Del. Date Name GA/Weeks Outcome Route Bth Weight Infant Gen Labor Lgth Anesthesia Del Locatn Provider FOB 09/23/22 Kate 38 live - full term 7lbs 6oz Male epidural [facility] Zach Carr Killian Delivery Date: 09/23/22 Last Updated by: Jenna JUSTIN IAL SROM boy kate HPI 26wk ob *25w6d Details: GRANT RUVALCABA is a 24 year old who presents for routine OB visit. OB Visit ERMA Calculator Estimated Delivery Date Method Current WG Current Estimate 02/06/25 LMP (Certain) 25w 6d Other Estimates 02/05/25 Ultrasound #1 26w 0d Expected Delivery Route/Plan Labor Preferences- CB/BF classes: [] labor support person: [] labor intervention preferences: [] pain management options preferred: [] cut cord/dad catch: [] : [] PP control planned: [] discussed possible routes of delivery and associated risks: [] special requests: [] Specific Issue/Plans Covid status: [] Flu vaccine: [] Tdap vaccine: [] Rhogam: NA LARC form signed: [] Problem list reviewed and updated with the most current plan of care details and appropriate orders placed. Relevant counseling for the gestational age provided. Continue routine care and follow up unless otherwise noted in visit notes/problem list details Initial Weight: 171 lb Date -???-???-???-???-???-?? ?-???-???-???-???-???-? ??- EGA Weight BP Urine Prot -???-???-???-???-???-?? ?-???-???-???-???-???-? ??- Glucose FHR FuHt Pres Dilation -???-???-???-???-???-?? ?-???-???-???-???-???-? ??- Effaced St Visit Note 07/06/24 -???-???-???-???-???-?? ?-???-???-???-???-???-? ??- 9w 2d 171 lb (+0 oz) 115/78 -???-???-???-???-???-?? ?-???-???-???-???-???-? ??- 168 -???-???-???-???-???-?? ?-???-???-???-???-???-? ??- KW- CRL cons with dates. accepts NIPT. 08/07/24 -???-???-???-???-???-?? ?-???-???-???-???-???-? ??- 13w 6d 168 lb 6 oz (-2 lb 10 oz) 123/82 Negative -???-???-???-???-???-?? ?-???-???-???-???-?? (more content not included)... Normal [facility] Electrocardiogram reportOrde red By: Manolo Merritt on 10-19-2024 EKG study [facility] Cardiovascular Services [address] [place] [address] 12 Lead EKG 10/18/24 1223 MR#: [id number] Acct: [id number] Name: GRANT RUVALCABA Rep #:[id number] : 2000 From: Manolo alfonso MD Attending Dr: SAADIA Balderas Status: REG CLI Ordering Dr: Imani Sullivan NP ACCOUNTANT CLERK-C Da te: 10/18/24 Location: [facility] Sex: F C Admitted: Test Reason : CP,DIZZY,SOB Blood Pressure : */* mmHG Vent. Rate : 89 BPM Atrial Rate : 89 BPM P-R Int : 136 ms QRS Dur : 70 ms QT Int : 346 ms P-R-T Axes : 45 16 17 degrees QTcB Int : 420 ms Normal sinus rhythm Normal ECG Confirmed by Manolo Merritt ([id number]), metropolitan editor AMANDA WATSON ([id number]) on 10/19/2024 12:54:33 PM Referred By: Imani Sullivan Confirmed By: Manolo Merritt 10/19/24 1254 Date _ Manolo Merritt MD CC: ACCOUNTANT CLERK-Martita Sullivan; GERALDINE Keith ~ Signed [facility] Other Phone: 12 Lead EKGon 10-18-2024 12 Lead EKG [facility] Cardiovascular Services [address] [place] [address] 12 Lead EKG 10/18/24 1223 MR#: [id number] Acct: [id number] Name: RINA RUVALCABAErvin HERNANDEZ Rep #: [id number] : 2000 24 From: Manolo Merritt MD Attending Dr: SAADIA Balderas Status: REG CLI Ordering Dr: Imani Sullivan NP Date: 10/18/24 Location: [facility] Sex: F C Admitted: Test Reason : CP,DIZZY,SOB Blood Pressure : */* mmHG Vent. Rate : 89 BPM Atrial Rate : 89 BPM P-R Int : 136 ms QRS Dur : 70 ms QT Int : 346 ms P-R-T Axes : 45 16 17 degrees QTcB Int : 420 ms Normal sinus rhythm Normal ECG Confirmed by Manolo Merritt ([id number]), metropolitan editor AMANDA WATSON ([id number]) on 10/19/2024 12:54:33 PM Referred By: Imani Sullivan Confirmed By: Manolo Merritt 10/19/24 1254 Date Manolo Merritt MD CC: ACCOUNTANT CLERK-Martita Sullivan; GERALDINE Keith Signed Normal [facility] Chest PA and Lateralon 10-18 Chest PA and Lateral [facility] Imaging Services [address] [place] [address] Chest PA and Lateral MR#: [id number] Acct: [id number] Name: GRANT RUVALCABA DAVID Rep #: [id number] : 2000 F 24 From: Davion Fisher MD PCP: Neda Keith PA-C Status: REG CLI Study: Chest PA and Lateral Date of Exam: 10/18/24 Exam# [id number] Ordering Dr: Imani Sullivan NP ACCOUNTANT CLERK -C EXAM: XR Chest, 2 Views CLINICAL INDICATION: CHEST PAIN TECHNIQUE: Frontal and lateral views of the chest. COMPARISON: No relevant prior studies available. FINDINGS: LUNGS AND PLEURAL SPACES: Unremarkable. No consolidation. No pneumothorax. HEART: Unremarkable. No cardiomegaly. MEDIASTINUM: Unremarkable. Normal mediastinal contour. BONES/JOINTS: Unremarkable. No acute fracture. RAD/Chest PA and Lateral IMPRESSION: No acute cardiopulmonary process. Reading Location: [facility] CC: SAADIA Sullivan; GERALDINE Keith Telegraph Mechanic: Signed Normal [facility] Laboratory - Chemistry and C hemistry - challengeOrdered By: Imani Sullivan on 10-18-2024 Glucose Ql (U) Negative [facility] Laboratory - UrinalysisOrder ed By: Imani Sullivan on 10-18-2024 Protein Ql (U) Trace [facility] [employer] Office Visit Reporton 10-18-2024 [employer] Office Visit Report [address], [address] [place] [address] OFFICE VISIT Date of Service: 10/18/24 MR#: [id number] Acct: [id number] Name: GRANT RUVALCABA Rep #: [id number] : 2000 Provider: SAADIA presley Age/Sex: 24/F Location: [facility] Status: Signed Intake Vital Signs 10/16/24 14:40 10/18/24 11:39 Height 5 ft 1 in 5 ft 1 in Weight: 180 lb 8 oz BMI 34.1 BP 118/81 H Intake Visit Reasons: ED Follow Up Coal Sample Tester Required: No Is patient in pain?: No Allergies No Known Allergies Allergy (Verified 10/18/24 11:40) Medications ???Medication ???Instructions ???Recorded ???Confirmed ???Type ferrous sulfate 140 mg (45 mg 140 mg PO DAILY 03/04/22 10/18/24 History iron) tablet,extended release cholecalciferol (vitamin D3) 25 25 mcg PO QDAY 03/13/24 10/18/24 H istory mcg (1,000 unit) capsule docosahexaenoic acid 200 mg mg PO 06/22/24 10/18/24 History capsule ( DHA) sertraline 50 mg tablet (Zoloft) 50 mg PO DAILY #90 tabs 09/04/24 0 10/18/24 Rx Last Menstrual Period: 05/02/24 Zika: Zika virus screening: Negative : No PFSH PFSH Medical History History of asthma Fatigue normal course Vaginal delivery Depression Contact with and (suspected) exposure to other viral communicable diseases Sinusitis Fibromyalgia Back pain Severe headache Family History Grandmother Breast cancer Paternal Aunt Breast cancer Other Migraines Social History adopted: No household members: spouse and children housing: house number of children: 1 current occupation: [employer] current occupational exposures/hazards: No pets and animals: Yes pets and animals: dog(s) history of recent travel: No sexually active: Yes Smoking Status: Never smoker alcohol intake: current alcohol intake frequency: holidays/special occasions only details: Not while substance use type: does not use well-balanced diet: daily or most days caffeine: Yes Type: coffee eating out: rarely or never during the past year weight has: remained stable what type of physical activity do you participate in: walking frequency: 1-2 times per week duration: 15-30 minutes/day eveline/faith: Scientologist seatbelt use: always do you feel safe at home: Yes additional social history: : [employer] History 2 Elective abortions Hx Para 1 Spontaneous abortions Hx # Term Pregnancies 1 Ectopic pregnancies Hx # Pregnancies Multiple births # of living children 1 Past Pregnancies Del. Date Name GA/Weeks Outcome Route Bth Weight Infant Gen Labor Lgth Anesthesia Del Locatn Provider FOB 09/23/22 Kate 38 live - full term 7lbs 6oz Male epidural [facility] Zach Carr Killian Delivery Date: 09/23/22 Last Updated by: Jenna M Ketler SM IAL SROM boy kate [facility] ED Follow Up Details: GRANT RUVALCABA is a 24 year old who presents for routine OB visit. OB Visit ERMA Calculator Estimated Delivery Date Method Current WG Current Estimate 02/06/25 LMP (Certain) 24w 1d Other Estimates 02/05/25 Ultrasound #1 24w 2d Expected Delivery Route/Plan Labor Preferences- CB/BF classes: [] labor support person: [] labor intervention preferences: [] pain management options preferred: [] cut cord/dad catch: [] : [] PP control planned: [] discussed possible routes of delivery and associated risks: [] special requests: [] Specific Issue/Plans Covid status: [] Flu vaccine: [] Tdap vaccine: [] Rhogam: NA LARC form signed: [] Problem list reviewed and updated with the most current plan of care details and appropriate orders placed. Relevant counseling for the gestational age provided. Continue routine care and follow up unless otherwise noted in visit notes/problem list details Initial Weight: 171 lb Date -???-???-???-???-???-?? ?-???-???-???-???-???-? ??- EGA Weight BP Urine Prot -???-???-???-???-???-?? ?-???-???-???-???-???-? ??- Glucose FHR FuHt Pres Dilation -???-???-???-???-???-?? ?-???-???-???-???-???-? ??- Effaced St Visit Note 07/06/24 -???-???-???-???-???-?? ?-???-???-???-???-???-? ??- 9w 2d 171 lb (+0 oz) 115/78 -???-???-???-???-???-?? ?-???-???-???-???-???-? ??- 168 -???-???-???-???-???-?? ?-???-???-???-???-???-? ??- KW- CRL cons with dates. accepts NIPT. 08/07/24 -???-???-???-???-???-?? ?-???-???-???-???-???-? ??- 13w 6d 168 lb 6 oz (-2 lb 10 oz) 123/82 Negative -???-???-???-???-???-?? ?-???-???-???-???-???-? ??- Negative 160 -???-???- (more content not included)... Normal [facility] Absolute lymphocyte countOrd ered By: Edwin Rome on 10-16-2024 Lymphocytes Auto (Unsp spec) [#/Vol] 1.75 10*3/uL 0.83-4.51 [facility] Absolute neutrophil countOrd ered By: Edwinfred Rome on 10-16-2024 Neutrophils (Bld) [#/Vol] 10.8 10*3/uL High 2.0-7.7 [facility] Activated partial thrombopla stin time (aPTT) in platelet poor plasma by coagulation aOrdered By: Edwin Rome on 10-16-2024 aPTT Coag (PPP) [Time] 26.6 s 24.1-36.2 [facility] Anion gap in Serum or Plasma Ordered By: Edwin Rome on 10-16-2024 Anion gap [Moles/Vol] 10 mmol/L 5-15 [facility] Automated lymphocyte count a s percentage of total leukocytesOrdered By: Edwin Rome on 10-16-2024 Lymphocytes/100 WBC Auto (Unsp spec) 12.4 % Low 19-41 [facility] BUN/creatinine ratioOrdered By: Edwin Rome on 10-16-2024 Urea nitrogen/Creatinine [Mass ratio] 17.2 mg/mg 10-20 [facility] Basophil percentageOrdered B y: Edwin Rome on 10-16-2024 Basophils/100 WBC (Bld) 0.2 % 0-1 [facility] Bilirubin, totalOrdered By: Edwin Rome on 10-16-2024 Bilirubin [Mass/Vol] mg/dL 0.00-1.30 [facility] CBC W/Diff, Automatedon Absolute Lymph 1.75 X10 3/uL Normal 0.83-4.51 [facility] Comment on above: Performed By: #### L 100.0100, L300.3900, L300.4310, L501.1400, L500.4050 ####[facility] [address] [place], [address] Absolute Neut 10.8 X10 3/uL High 2.0-7.7 [facility] Comment on above: Performed By: #### L 100.0100, L300.3900, L300.4310, L501.1400, L500.4050 ####[facility] [address] [place], [address] Basophils/100 WBC (Bld) 0.2 % Normal 0-1 [facility] Comment on above: Performed By: #### L 100.0100, L300.3900, L300.4310, L501.1400, L500.4050 ####[facility] [address] [place], [address] Eosinophils/100 WBC (Bld) 1.6 % Normal 0-5 [facility] Comment on above: Performed By: #### L 100.0100, L300.3900, L300.4310, L501.1400, L500.4050 ####[facility] [address] [place], [address] Erythrocyte distribution width (RBC) [Ratio] 12.9 % Normal 11.6-14.6 [facility] Comment on above: Performed By: #### L 100.0100, L300.3900, L300.4310, L501.1400, L500.4050 ####[facility] [address] [place], [address] Hematocrit (Bld) [Volume fraction] 33.3 % Low 37-47 [facility] Comment on above: Performed By: #### L 100.0100, L300.3900, L300.4310, L501.1400, L500.4050 ####[facility] [address] [place], [address] Hemoglobin (Bld) [Mass/Vol] 11.7 g/dL Low 12.0-15.0 [facility] Comment on above: Performed By: #### L 100.0100, L300.3900, L300.4310, L501.1400, L500.4050 ####[facility] [address] [place], [address] IG% 0.900 Normal 0.0-0.9 [facility] Comment on above: Result Comment: IG% - Immature Granulocytes (promyelocytes, myelocytes and metamyelocytes) > 1% indicates that a LEFT SHIFT is Present. Performed By: #### L 100.0100, L300.3900, L300.4310, L501.1400, L500.4050 ####[facility] [address] [place], [address] Lymphocytes/100 WBC (Bld) 12.4 % Low 19-41 [facility] Comment on above: Performed By: #### L 100.0100, L300.3900, L300.4310, L501.1400, L500.4050 ####[facility] [address] [place], [address] MCH (RBC) [Entitic mass] 32.2 pg High 27.0-32.0 [facility] Comment on above: Performed By: #### L 100.0100, L300.3900, L300.4310, L501.1400, L500.4050 ####[facility] [address] [place], [address] MCHC (RBC) [Mass/Vol] 35.1 g/dL Normal 32-36 [facility] Comment on above: Performed By: #### L 100.0100, L300.3900, L300.4310, L501.1400, L500.4050 ####[facility] [address] [place], [address] MCV (RBC) [Entitic vol] 91.7 fL Normal 81-99 [facility] Comment on above: Performed By: #### L 100.0100, L300.3900, L300.4310, L501.1400, L500.4050 ####[facility] [address] [place], [address] Monocytes/100 WBC (Bld) 8.1 % Normal 0-10 [facility] Comment on above: Performed By: #### L 100.0100, L300.3900, L300.4310, L501.1400, L500.4050 ####[facility] [address] [place], [address] Neutrophils/100 WBC (Bld) 76.8 % High 47-70 [facility] Comment on above: Performed By: #### L 100.0100, L300.3900, L300.4310, L501.1400, L500.4050 ####[facility] [address] [place], [address] Nucleated RBC (Bld) [#/Vol] 0 10*3/uL Normal 0-5 [facility] Comment on above: Performed By: #### L 100.0100, L300.3900, L300.4310, L501.1400, L500.4050 ####[facility] [address] [place], [address] Platelet mean volume (Bld) [Entitic vol] 10.7 fL Normal 6.2-12.0 [facility] Comment on above: Performed By: #### L 100.0100, L300.3900, L300.4310, L501.1400, L500.4050 ####[facility] [address] [place], [address] Platelets (Bld) [#/Vol] 278 10*3/uL Normal 150-450 [facility] Comment on above: Performed By: #### L 100.0100, L300.3900, L300.4310, L501.1400, L500.4050 ####[facility] [address] [place], [address] RBC (Bld) [#/Vol] 3.63 10*6/uL Low 4.2-5.4 [facility] Comment on above: Performed By: #### L 100.0100, L300.3900, L300.4310, L501.1400, L500.4050 ####[facility] [address] [place], [address] RDW SD 42.5 fl Normal 35.1-43.9 [facility] Comment on above: Performed By: #### L 100.0100, L300.3900, L300.4310, L501.1400, L500.4050 ####[facility] [address] [place], [address] WBC (Bld) [#/Vol] 14.1 10*3/uL High 4.4-11.0 [facility] Comment on above: Performed By: #### L 100.0100, L300.3900, L300.4310, L501.1400, L500.4050 ####[facility] [address] [place], [address] Carbon dioxide, total [Moles /volume] in Central venous bloodOrdered By: Edwin Rome on 10-16-2024 CO2 [Moles/Vol] 20.6 mmol/L Low 21.0-32.0 [facility] Chloride assayOrdered By: Lisette Rome on 10-16-2024 Chloride [Moles/Vol] 104 mmol/L 98-108 [facility] Comprehensive Metabolic Prof ilon 10-16-2024 Albumin [Mass/Vol] 3.6 g/dL Normal 3.5-5.0 [facility] Comment on above: Performed By: #### L 100.0100, L300.3900, L300.4310, L501.1400, L500.4050 ####[facility] [address] [place], [address] Albumin/Globulin [Mass ratio] 1.2 {ratio} Normal 0.9-2.4 [facility] Comment on above: Performed By: #### L 100.0100, L300.3900, L300.4310, L501.1400, L500.4050 ####[facility] [address] [place], [address] ALK PHOS 89 U/L Normal 35-104 [facility] Comment on above: Performed By: #### L 100.0100, L300.3900, L300.4310, L501.1400, L500.4050 ####[facility] [address] [place], [address] ALT [Catalytic activity/Vol] 11 U/L Normal <=34 [facility] Comment on above: Performed By: #### L 100.0100, L300.3900, L300.4310, L501.1400, L500.4050 ####[facility] [address] [place], [address] AST [Catalytic activity/Vol] 14 U/L Normal <=31 [facility] Comment on above: Performed By: #### L 100.0100, L300.3900, L300.4310, L501.1400, L500.4050 ####[facility] [address] [place], [address] BUN/CRE 17.2 RATIO Normal 10-20 [facility] Comment on above: Performed By: #### L 100.0100, L300.3900, L300.4310, L501.1400, L500.4050 ####[facility] [address] [place], [address] Calcium [Mass/Vol] 9.3 mg/dL Normal 7.6-11.0 [facility] Comment on above: Performed By: #### L 100.0100, L300.3900, L300.4310, L501.1400, L500.4050 ####[facility] [address] [place], [address] Chloride [Moles/Vol] 104 mmol/L Normal 98-108 [facility] Comment on above: Performed By: #### L 100.0100, L300.3900, L300.4310, L501.1400, L500.4050 ####[facility] [address] [place], [address] CO2 [Moles/Vol] 20.6 mmol/L Low 21.0-32.0 [facility] Comment on above: Performed By: #### L 100.0100, L300.3900, L300.4310, L501.1400, L500.4050 ####[facility] [address] [place], [address] Creatinine [Mass/Vol] 0.50 mg/dL Low 0.70-1.20 [facility] Comment on above: Performed By: #### L 100.0100, L300.3900, L300.4310, L501.1400, L500.4050 ####[facility] [address] [place], [address] ECRCL 166.35 ml/min Normal 50-250 [facility] Comment on above: Performed By: #### L 100.0100, L300.3900, L300.4310, L501.1400, L500.4050 ####[facility] [address] [place], [address] GAP 10 Normal 5-15 [facility] Comment on above: Performed By: #### L 100.0100, L300.3900, L300.4310, L501.1400, L500.4050 ####[facility] [address] [place], [address] GFR/1.73 sq M.predicted among non-blacks MDRD (S/P/Bld) [Vol rate/Area] 134 mL/min/{1.73_m2} Normal >60 [facility] Comment on above: Result Comment: mL/m in/1.73m2 CKD-EPI Creatinine Equation (2020) Performed By: #### L 100.0100, L300.3900, L300.4310, L501.1400, L500.4050 ####[facility] [address] [place], [address] Globulin (S) [Mass/Vol] 3.1 g/dL Normal 2.2-4.2 [facility] Comment on above: Performed By: #### L 100.0100, L300.3900, L300.4310, L501.1400, L500.4050 ####[facility] [address] [place], [address] Glucose [Mass/Vol] 98 mg/dL Normal 70-99 [facility] Comment on above: Performed By: #### L 100.0100, L300.3900, L300.4310, L501.1400, L500.4050 ####[facility] [address] [place], [address] Potassium [Moles/Vol] 3.9 mmol/L Normal 3.3-5.1 [facility] Comment on above: Performed By: #### L 100.0100, L300.3900, L300.4310, L501.1400, L500.4050 ####[facility] [address] [place], [address] Sodium [Moles/Vol] 135 mmol/L Normal 133-145 [facility] Comment on above: Performed By: #### L 100.0100, L300.3900, L300.4310, L501.1400, L500.4050 ####[facility] [address] [place], [address] T BILI < 0.15 Normal 0.00-1.30 [facility] Comment on above: Performed By: #### L 100.0100, L300.3900, L300.4310, L501.1400, L500.4050 ####[facility] [address] [place], [address] T PROT 6.6 g/dL Normal 5.9-8.4 [facility] Comment on above: Performed By: #### L 100.0100, L300.3900, L300.4310, L501.1400, L500.4050 ####[facility] [address] [place], [address] Urea nitrogen [Mass/Vol] 9 mg/dL Normal 4-19 [facility] Comment on above: Performed By: #### L 100.0100, L300.3900, L300.4310, L501.1400, L500.4050 ####[facility] [address] [place], [address] Emergency Department Summary on 10-16-2024 Emergency Department Summary [facility] Medical Records Department [address] [place] [address] Emergency Department Summary 10/16/24 MR#: [id number] Acct: [id number] Name: GRANT RUVALCABA Rep #: [id number] : 2000 24 From: Edwin Rome MD PCP: Neda Keith PA-C Status:REG ER Location: ED HPI History of Present Illness Chief Complaint: General Illness Detail of Chief Complaint: Multiple complaints major complaint is dizziness Informant: patient Onset/Context/Timing Onset: Days Context: Sudden Onset Timing: Intermittent Quality: This is defined as orthostatic lightheadedness Location: Cardiovascular Current Severity: Gone Maximum Severity: Severe Worsened by: upright position Relieved by: Supine position Associated Symptoms Associated Symptoms: Vague abdominal discomfort, Nausea Narrative Narrative: Patient is a 24-year-old G2, P1 Ab0 female who is 24 weeks gestation. She contacted her OB who recommended she come to the emergency room. OB triage stated patient to come to the ER. Since blood pressure is normal and based on documented triage note she was seen in the emergency department. Patient has fever, chills night sweats. She denies headache. Denies double vision blurred vision loss of vision. Denies ringing or ears decreased hearing. Has had some intermittent congestion. Has history of seasonal allergies. She denies sore throat. Denies change in voice. She states she feels she cannot get her breath when she is walking. She has no history of VTE. She has no leg pain, swelling discoloration. She does have history of fibromyalgia. She denies abdominal pain, pelvic pain or vaginal bleeding. She does endorse frequency without dysuria or hematuria. Denies back or flank pain. She has no history of trauma. She denied headache even though was noted in triage. Review of records indicates she has history of chronic headaches. Prior similar symptoms: No Recent Illness/Hospitalization : No PFSH PFSH Medical History History of asthma Fatigue normal course Vaginal delivery Depression Contact with and (suspected) exposure to other viral communicable diseases Sinusitis Fibromyalgia Back pain Severe headache Home Medications ???Medication ???Instructions ???Recorded ???Last Taken ???Type ferrous sulfate 140 mg (45 mg 140 mg PO DAILY 03/04/22 10/16/24 History iron) tablet,extended release cholecalciferol (vitamin D3) 25 25 mcg PO QDAY 03/13/24 10/16/24 H istory mcg (1,000 unit) capsule docosahexaenoic acid 200 mg mg PO 06/22/24 10/16/24 History capsule ( DHA) sertraline 50 mg tablet (Zoloft) 50 mg PO DAILY #90 tabs 09/04/24 0 10/16/24 Rx Allergy/AdvReac Type Severity Reaction Status Date / Time No Known Allergies Allergy Verified 10/16/24 14:57 Family History Grandmother Breast cancer Paternal Aunt Breast cancer Other Migraines Social History adopted: No household members: spouse and children housing: house number of children: 1 current occupation: [employer] current occupational exposures/hazards: No pets and animals: Yes pets and animals: dog(s) history of recent travel: No sexually active: Yes Smoking Status: Never smoker alcohol intake: current alcohol intake frequency: holidays/special occasions only details: Not while substance use type: does not use well-balanced diet: daily or most days caffeine: Yes Type: coffee eating out: rarely or never during the past year weight has: remained stable what type of physical activity do you participate in: walking frequency: 1-2 times per week duration: 15-30 minutes/day eveline/faith: Scientologist seatbelt use: always do you feel safe at home: Yes additional social history: : [employer] ROS ROS ED Constitutional Constitutional ED: Denies chills, fever(s), subjective or sweats Eyes Eyes: Reports other Details: She states her vision goes in and out last second. This occurs when she has orthostatic symptoms. ; Denies blurry vision, change in vision or diplopia ENT ENT ED: Reports rhinorrhea; Denies ear pain or sore throat Cardiovascular Cardiovascular: Denies chest pain, orthopnea, palpitations, paroxysmal nocturnal dyspnea or racing heartbeat Respiratory/Chest Respiratory/Chest: Reports dyspnea on exertion and other Details: Patient states she feels like she is not getting her breath when she is walking. ; Denies cough, dyspnea, orthopnea, paroxysmal nocturnal dyspnea or sputum Gastrointestinal Gastrointestinal: Reports diarrhea and other Details: To reported 3 mushy to watery stools without blood or mucus. ; Denies abdominal pain, constipation, me (more content not included)... Normal [facility] Eosinophil percentageOrdered By: Edwin Rome on 10-16-2024 Eosinophils/100 WBC (Bld) 1.6 % 0-5 [facility] Erythrocyte distribution wid th ratioOrdered By: Edwinfred Rome on 10-16-2024 Erythrocyte distribution width (RBC) [Ratio] 12.9 % 11.6-14.6 [facility] Erythrocyte distribution wid th standard deviationOrdered By: Edwinfred Rome on 10-16-2024 Erythrocyte distribution width (RBC) [Ratio] 42.5 fl 35.1-43.9 [facility] Glomerular filtration rate ( GFR) estimation/1.73 sq m using serum, plasma, or whole bOrdered By: Edwinfred Rome on 10-16-2024 GFR/1.73 sq M.predicted among non-blacks MDRD (S/P/Bld) [Vol rate/Area] 134 mL/min/{1.73_m2} >60 [facility] Comment on above: mL/min/1.73m2 CKD-EP I Creatinine Equation (2020) Hematocrit Auto (Bld) [Volum e fraction]Ordered By: Edwinfred Rome on 10-16-2024 Hematocrit (Bld) [Volume fraction] 33.3 % Low 37-47 [facility] Hemoglobin measurementOrdere d By: Edwin Rome on 10-16-2024 Hemoglobin (Bld) [Mass/Vol] 11.7 g/dL Low 12.0-15.0 [facility] Immature granulocytes/100 WB C Auto (Bld)Ordered By: Edwin Rome on 10-16-2024 Immature granulocytes/100 WBC (Bld) 0.900 % 0.0-0.9 [facility] Comment on above: IG% - Immature Granu locytes (promyelocytes, myelocytes and metamyelocytes) > 1% indicates that a LEFT SHIFT is Present. International normalized rat io (INR) calculationOrdered By: Edwinfred Rome on 10-16-2024 INR Coag (Bld) [Relative time] 0.9 {INR} [facility] Laboratory - Chemistry and C hemistry - challengeOrdered By: Edwinfred Rome on 10-16-2024 AST [Catalytic activity/Vol] 14 U/L <32 [facility] MCV (mean corpuscular volume ) determinationOrdered By: Edwinfred Rome on 10-16-2024 MCV (RBC) [Entitic vol] 91.7 fL 81-99 [facility] Mean corpuscular hemoglobin (MCH) determinationOrdered By: [facility] Wild on 10-16-2024 MCH (RBC) [Entitic mass] 32.2 pg High 27.0-32.0 [facility] Mean corpuscular hemoglobin concentration (MCHC) determinationOrdered By: Edwinfred Rome on 10-16-2024 MCHC (RBC) [Mass/Vol] 35.1 g/dL 32-36 [facility] Mean platelet volume determi nationOrdered By: Edwinfred Rome on 10-16-2024 Platelet mean volume (Bld) [Entitic vol] 10.7 fL 6.2-12.0 [facility] Monocyte percentageOrdered B y: Edwinfred Rome on 10-16-2024 Monocytes/100 WBC (Bld) 8.1 % 0-10 [facility] Neutrophil [facility]Ordered By: [facility] 10-16-20[facility] Neutrophils/100 WBC (Bld) 76.8 % High 47-70 [facility] Nucleated red blood cell per centageOrdered By: Edwinfred Rome on 10-16-2024 Nucleated RBC/100 WBC (Bld) [Ratio] 0 % 0-5 [facility] Partial Thromboplast Timeon 10-16-2024 aPTT Coag (Bld) [Time] 26.6 s Normal 24.1-36.2 [facility] Comment on above: Performed By: #### L 100.0100, L300.3900, L300.4310, L501.1400, L500.4050 ####[facility] [id number] [place], [place], [id number] Platelet countOrdered By: fred Rome on 10-16-2024 Platelets (Bld) [#/Vol] 278 10*3/uL 150-450 [facility] Potassium measurement (mass/ volume)Ordered By: Edwinfred Rome on 10-16-2024 Potassium (Unsp spec) [Mass/Vol] 3.9 mmol/L 3.3-5.1 [facility] Prothrombin Time w/INRon INR Coag (PPP) [Relative time] 0.9 {INR} Normal [facility] Comment on above: Performed By: #### L 100.0100, L300.3900, L300.4310, L501.1400, L500.4050 ####[facility] [address] [place], [place], [id number] PT Coag (PPP) [Time] 12.8 s Normal 11.7-14.9 [facility] Comment on above: Performed By: #### L 100.0100, L300.3900, L300.4310, L501.1400, L500.4050 ####[facility] [address] [place], [place], [id number] Prothrombin timeOrdered By: Edwin Rome on 10-16-2024 PT Coag (PPP) [Time] 12.8 s 11.7-14.9 [facility] RBC Auto (Bld) [#/Vol]Ordere d By: Edwin Rome on 10-16-2024 RBC (Bld) [#/Vol] 3.63 10*6/uL Low 4.2-5.4 [facility] Serum creatinine measurement (mass/volume)Ordered By: Edwin Rome on 10-16-2024 Creatinine [Mass/Vol] 0.50 mg/dL Low 0.70-1.20 [facility] Serum globulin measurementOr dered By: Edwin Rome on 10-16-2024 Globulin (S) [Mass/Vol] 3.1 g/dL 2.2-4.2 [facility] Serum glucose measurement (m ass/volume)Ordered By: Edwin Rome on 10-16-2024 Glucose [Mass/Vol] 98 mg/dL 70-99 [facility] Serum or plasma alanine corrales otransferase (ALT) measurementOrdered By: Edwin Rome on 10-16-2024 ALT [Catalytic activity/Vol] 11 U/L <35 [facility] Serum or plasma albumin ximena urement (mass/volume)Ordered By: Edwinfred Rome on 10-16-2024 Albumin [Mass/Vol] 3.6 g/dL 3.5-5.0 [facility] Serum or plasma albumin/glob ulin mass ratioOrdered By: Edwin Rome on 10-16-2024 Albumin/Globulin [Mass ratio] 1.2 {ratio} 0.9-2.4 [facility] Serum or plasma alkaline bismark sphatase measurementOrdered By: Edwinfred Rome on 10-16-2024 ALP [Catalytic activity/Vol] 89 U/L 35-104 [facility] Serum or plasma calcium ximena urement (mass/volume)Ordered By: Edwin Rome on 10-16-2024 Calcium [Mass/Vol] 9.3 mg/dL 7.6-11.0 [facility] Serum or plasma urea nitroge n measurement (mass/volume)Ordered By: Edwin Rome on 10-16-2024 Urea nitrogen [Mass/Vol] 9 mg/dL 4-19 [facility] Serum or plasma uric acid me asurement (mass/volume)Ordered By: Edwin Rome on 10-16-2024 Urate [Mass/Vol] 4.5 mg/dL 2.6-6.0 [facility] Comment on above: The drugs N-Acetylcy steine and Metamizole may falsely depress this assay. Sodium levelOrdered By: Edwin Rome on 10-16-2024 Sodium [Moles/Vol] 135 mmol/L 133-145 [facility] Total proteinOrdered By: Edwinfred Rome on 10-16-2024 Protein [Mass/Vol] 6.6 g/dL 5.9-8.4 [facility] Uric Acidon 10-16-2024 URIC 4.5 mg/dL Normal 2.6-6.0 [facility] Comment on above: Result Comment: The drugs N-Acetylcysteine and Metamizole may falsely depress this assay. Performed By: #### L 100.0100, L300.3900, L300.4310, L501.1400, L500.4050 ####[facility] [address] [place], [address] Urinalysis, Completeon 10-16 BACTERIA 0 SEEN Normal None Seen [facility] Comment on above: Order Comment: CLEAN CATCH Result Comment: SAMP LE SENT ON WRONG PT. PT DISCHARGED. Performed By: #### L 400.0001 ####[facility] [address] [place], [address] EPI,SQUAMOUS 0 SEEN Normal 5-10 [facility] Comment on above: Order Comment: CLEAN CATCH Result Comment: SAMP LE SENT ON WRONG PT. PT DISCHARGED. Performed By: #### L 400.0001 ####[facility] [address] [place], [address] Mucus Ql (Urine sed) 0 SEEN Normal [facility] Comment on above: Order Comment: CLEAN CATCH Result Comment: SAMP LE SENT ON WRONG PT. PT DISCHARGED. Performed By: #### L 400.0001 ####[facility] [address] [place], [address] RBC 0 SEEN Normal 0-5 [facility] Comment on above: Order Comment: CLEAN CATCH Result Comment: SAMP LE SENT ON WRONG PT. PT DISCHARGED. Performed By: #### L 400.0001 ####[facility] [address] [place], [address] WBC 0 SEEN Normal 0-5 [facility] Comment on above: Order Comment: CLEAN CATCH Result Comment: SAMP LE SENT ON WRONG PT. PT DISCHARGED. Performed By: #### L 400.0001 ####[facility] [address] [place], [address] BILIRUBIN URINE Normal Negative [facility] Comment on above: Order Comment: CLEAN CATCH Result Comment: SAMP LE SENT ON WRONG PT. PT DISCHARGED. Performed By: #### L 400.0001 ####[facility] [address] [place], [address] Clarity (U) Normal Clear [facility] Comment on above: Order Comment: CLEAN CATCH Result Comment: SAMP LE SENT ON WRONG PT. PT DISCHARGED. Performed By: #### L 400.0001 ####[facility] [address] [place], [address] Color (U) Normal Yellow [facility] Comment on above: Order Comment: CLEAN CATCH Result Comment: SAMP LE SENT ON WRONG PT. PT DISCHARGED. Performed By: #### L 400.0001 ####[facility] [address] [place] [id number] GLUCOSE, UR Normal Normal [facility] Comment on above: Order Comment: CLEAN CATCH Result Comment: SAMP LE SENT ON WRONG PT. PT DISCHARGED. Performed By: #### L 400.0001 ####[facility] [address] [facility] [address] KETONE UR Normal Negative [facility] Comment on above: Order Comment: CLEAN CATCH Result Comment: SAMP LE SENT ON WRONG PT. PT DISCHARGED. Performed By: #### L 400.0001 ####[facility] [address] [place] [address] LEUK ESTERASE Normal Negative [facility] Comment on above: Order Comment: CLEAN CATCH Result Comment: SAMP LE SENT ON WRONG PT. PT DISCHARGED. Performed By: #### L 400.0001 ####[facility] [address] [place], [address] Nitrite Ql (U) Normal Negative [facility] Comment on above: Order Comment: CLEAN CATCH Result Comment: SAMP LE SENT ON WRONG PT. PT DISCHARGED. Performed By: #### L 400.0001 ####[facility] [address] [facility] [address] OCCULT BLOOD-UR Normal Negative [facility] Comment on above: Order Comment: CLEAN CATCH Result Comment: SAMP LE SENT ON WRONG PT. PT DISCHARGED. Performed By: #### L 400.0001 ####[facility] [address] [place], [address] pH UR Normal 5.0 - 8.0 [facility] Comment on above: Order Comment: CLEAN CATCH Result Comment: SAMP LE SENT ON WRONG PT. PT DISCHARGED. Performed By: #### L 400.0001 ####[facility] [address] [place], [address] PROT DIPSTX Normal Negative [facility] Comment on above: Order Comment: CLEAN CATCH Result Comment: SAMP LE SENT ON WRONG PT. PT DISCHARGED. Performed By: #### L 400.0001 ####[facility] [address] [place], [address] SP.GR. DIPSTX Normal 1.002-1.030 [facility] Comment on above: Order Comment: CLEAN CATCH Result Comment: SAMP LE SENT ON WRONG PT. PT DISCHARGED. Performed By: #### L 400.0001 ####[facility] [address] [place], [address] UR Preservative Normal [facility] Comment on above: Order Comment: CLEAN CATCH Result Comment: SAMP LE SENT ON WRONG PT. PT DISCHARGED. Performed By: #### L 400.0001 ####[facility] [address] [place], [address] UROBILI Normal Normal [facility] Comment on above: Order Comment: CLEAN CATCH Result Comment: SAMP LE SENT ON WRONG PT. PT DISCHARGED. Performed By: #### L 400.0001 ####[facility] [address] [place], [address] White blood cell (WBC) count Ordered By: Edwin Rome on 10-16-2024 WBC (Bld) [#/Vol] 14.1 10*3/uL High 4.4-11.0 [facility] Laboratory - Chemistry and C hemistry - challengeOrdered By: Imani Sullivan on 10-02-2024 Glucose Ql (U) Negative [facility] Laboratory - UrinalysisOrder ed By: Imani Sullivan on 10-02-2024 Protein Ql (U) Negative [facility] [employer] Office Visit Reporton 10-02-2024 [employer] Office Visit Report [facility] [address], [address] [place] [address] OFFICE VISIT Date of Service: 10/02/24 MR#: [id number] Acct: [id number] Name: GRANT RUVALCABA Rep #: [id number] : 2000 Provider: SAADIA presley Age/Sex: 24/F Location: [facility] Status: Signed Intake Vital Signs 07/06/24 13:11 09/04/24 15:35 10/02/24 08:33 Height 5 ft 5 ft 5 ft Weight: 175 lb 2 oz BMI 34.2 BP 110/72 Intake Visit Reasons: 22 wk ob Chief Complaint: 22 Week OB Coal Sample Tester Required: No Is patient in pain?: No Allergies No Known Allergies Allergy (Verified 10/02/24 08:33) Medications ???Medication ???Instructions ???Recorded ???Confirmed ???Type ferrous sulfate 140 mg (45 mg 140 mg PO DAILY 03/04/22 10/02/24 History iron) tablet,extended release cholecalciferol (vitamin D3) 25 25 mcg PO QDAY 03/13/24 10/02/24 H istory mcg (1,000 unit) capsule ondansetron 4 mg disintegrating 4 mg PO Q6H PRN nausea and 5 10/02/24 Rx tablet vomiting #90 tabs docosahexaenoic acid 200 mg mg PO 06/22/24 10/02/24 History capsule ( DHA) sertraline 50 mg tablet (Zoloft) 50 mg PO DAILY #90 tabs 09/04/24 0 10/02/24 Rx Last Menstrual Period: 05/02/24 Zika: Zika virus screening: Negative : No PFSH PFSH Medical History History of asthma Fatigue normal course Vaginal delivery Depression Contact with and (suspected) exposure to other viral communicable diseases Sinusitis Fibromyalgia Back pain Severe headache Family History Grandmother Breast cancer Paternal Aunt Breast cancer Other Migraines Social History adopted: No household members: spouse and children housing: house number of children: 1 current occupation: [employer] current occupational exposures/hazards: No pets and animals: Yes pets and animals: dog(s) history of recent travel: No sexually active: Yes Smoking Status: Never smoker alcohol intake: current alcohol intake frequency: holidays/special occasions only details: Not while substance use type: does not use well-balanced diet: daily or most days caffeine: Yes Type: coffee eating out: rarely or never during the past year weight has: remained stable what type of physical activity do you participate in: walking frequency: 1-2 times per week duration: 15-30 minutes/day eveline/faith: Scientologist seatbelt use: always do you feel safe at home: Yes additional social history: : [employer] History 2 Elective abortions Hx Para 1 Spontaneous abortions Hx # Term Pregnancies 1 Ectopic pregnancies Hx # Pregnancies Multiple births # of living children 1 Past Pregnancies Del. Date Name GA/Weeks Outcome Route Bth Weight Gen Labor Lgth Anesthesia Del Locatn Provider FOB 09/23/22 Kate 38 live - full term 7lbs 6oz Male epidural [facility] S katia Carr [place] Delivery Date: 09/23/22 Last Updated by: Jenna Ahmadi SM IAL SROM boy kate HPI 22 wk ob Details: GRANT RUVALCABA is a 24 year old who presents for routine OB visit. OB Visit ERMA Calculator Estimated Delivery Date Method Current WG Current Estimate 02/06/25 LMP (Certain) 21w 6d Other Estimates 02/05/25 Ultrasound #1 22w 0d Expected Delivery Route/Plan Labor Preferences- CB/BF classes: [] labor support person: [] labor intervention preferences: [] pain management options preferred: [] cut cord/dad catch: [] : [] PP control planned: [] discussed possible routes of delivery and associated risks: [] special requests: [] Specific Issue/Plans Covid status: [] Flu vaccine: [] Tdap vaccine: [] Rhogam: NA LARC form signed: [] Problem list reviewed and updated with the most current plan of care details and appropriate orders placed. Relevant counseling for the gestational age provided. Continue routine care and follow up unless otherwise noted in visit notes/problem list details Initial Weight: 171 lb Date -???-???-???-???-???-?? ?-???-???-???-???-???-? ??- EGA Weight BP Urine Prot -???-???-???-???-???-?? ?-???-???-???-???-???-? ??- Glucose FHR FuHt Pres Dilation -???-???-???-???-???-?? ?-???-???-???-???-???-? ??- Effaced St Visit Note 07/06/24 -???-???-???-???-???-?? ?-???-???-???-???-???-? ??- 9w 2d 171 lb (+0 oz) 115/78 -???-???-???-???-???-?? ?-???-???-???-???-???-? ??- 168 -???-???-???-???-???-?? ?-???-???-???-???-???-? ??- KW- CRL cons with dates. accepts NIPT. 08/07/24 -???-???-???-???-???-?? ?-???-???- (more content not included)... 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 [facility] [address], [address] [place] [address] OFFICE VISIT Date of Service: 09/04/24 MR#: [id number] Acct: [id number] Name: GRANT RUVALCABA Rep #: [id number] : 2000 Provider: SAADIA presley Age/Sex: 24/F Location: [facility] Status: Signed Intake Vital Signs 07/06/24 13:11 08/07/24 14:08 09/04/24 15:35 Height 5 ft 5 ft 5 ft Weight: 171 lb 8 oz BMI 33.5 BP 113/79 Intake Visit Reasons: 18 wk ob Chief Complaint: 18 Week OB Coal Sample Tester Required: No Is patient in pain?: No Allergies No Known Allergies Allergy (Verified 09/04/24 15:34) Medications ???Medication ???Instructions ???Recorded ???Confirmed ???Type ferrous sulfate 140 mg (45 mg 140 mg PO DAILY 03/04/22 09/04/24 History iron) tablet,extended release cholecalciferol (vitamin D3) 25 25 mcg PO QDAY 03/13/24 09/04/24 H istory mcg (1,000 unit) capsule ondansetron 4 mg disintegrating 4 mg PO Q6H PRN nausea and 5 09/04/24 Rx tablet vomiting #90 tabs docosahexaenoic acid 200 mg mg PO 06/22/24 09/04/24 History capsule ( DHA) sertraline 50 mg tablet (Zoloft) 50 mg PO DAILY #90 tabs 09/04/24 0 09/04/24 Rx Last Menstrual Period: 05/02/24 Zika: Zika virus screening: Negative : No PFSH PFSH Medical History History of asthma Fatigue normal course Vaginal delivery Depression Contact with and (suspected) exposure to other viral communicable diseases Sinusitis Fibromyalgia Back pain Severe headache Family History Grandmother Breast cancer Paternal Aunt Breast cancer Other Migraines Social History adopted: No household members: spouse and children housing: house number of children: 1 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 current occupational exposures/hazards: No pets and animals: Yes pets and animals: dog(s) history of recent travel: No sexually active: Yes Smoking Status: Never smoker alcohol intake: current alcohol intake frequency: holidays/special occasions only details: Not while substance use type: does not use well-balanced diet: daily or most days caffeine: Yes Type: coffee eating out: rarely or never during the past year weight has: remained stable what type of physical activity do you participate in: walking frequency: 1-2 times per week duration: 15-30 minutes/day eveline/faith: Scientologist seatbelt use: always do you feel safe at home: Yes additional social history: : [employer] History 2 Elective abortions Hx Para 1 Spontaneous abortions Hx # Term Pregnancies 1 Ectopic pregnancies Hx # Pregnancies Multiple births # of living children 1 Past Pregnancies Del. Date Name GA/Weeks Outcome Route Bth Weight Gen Labor Lgth Anesthesia Del Locatn Provider FOB 09/23/22 Kate 38 live - full term 7lbs 6oz Male epidural [facility] [place] Delivery Date: 09/23/22 Last Updated by: Jenna Ahmadi SM IAL SROM boy kate HPI 18 wk ob Details: GRANT RUVALCABA is a 24 year old who presents for routine OB visit. OB Visit ERMA Calculator Estimated Delivery Date Method Current WG Current Estimate 02/06/25 LMP (Certain) 17w 6d Other Estimates 02/05/25 Ultrasound #1 18w 0d Expected Delivery Route/Plan Labor Preferences- CB/BF classes: [] labor support person: [] labor intervention preferences: [] pain management options preferred: [] cut cord/dad catch: [] : [] PP control planned: [] discussed possible routes of delivery and associated risks: [] special requests: [] Specific Issue/Plans Covid status: [] Flu vaccine: [] Tdap vaccine: [] Rhogam: [] LARC form signed: [] Problem list reviewed and updated with the most current plan of care details and appropriate orders placed. Relevant counseling for the gestational age provided. Continue routine care and follow up unless otherwise noted in visit notes/problem list details Initial Weight: 171 lb Date -???-???-???-???-???-?? ?-???-???-???-???-???-? ??- EGA Weight BP Urine Prot -???-???-???-???-???-?? ?-???-???-???-???-???-? ??- Glucose FHR FuHt Pres Dilation -???-???-???-???-???-?? ?-???-???-???-???-???-? ??- Effaced St Visit Note 07/06/24 -???-???-???-???-???-?? ?-???-???-???-???-???-? ??- 9w 2d 171 lb (+0 oz) 115/78 -???-???-???-???-???-?? ?-???-???-???-???-???-? ??- 168 -???-???-???-???-???-?? ?-???-???-???-???-???-? ??- KW- CRL cons with dates. accepts NIPT. 08/07/24 -???-???-???-???-???-?? ?-???-???- (more content not included)... 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 Karyna sales MD Age/Sex: 24/F Location: [facility] Status: Signed Intake Vital Signs 04/03/24 13:02 07/06/24 13:11 08/07/24 14:08 Height 5 ft 5 ft 5 ft Weight: 168 lb 6 oz BMI 32.8 BP 123/82 H Intake Visit Reasons: 14 wk ob Coal Sample Tester Required: No Is patient in pain?: No Feel stressed/tense/nervous/ anxious/difficulty sleeping: not at all Allergies No Known Allergies Allergy (Verified 08/07/24 14:09) Medications ???Medication ???Instructions ???Recorded ???Confirmed ???Type ferrous sulfate 140 mg (45 mg 140 mg PO DAILY 03/04/22 08/07/24 History iron) tablet,extended release cholecalciferol (vitamin D3) 25 25 mcg PO QDAY 03/13/24 08/07/24 H istory mcg (1,000 unit) capsule sertraline 25 mg tablet (Zoloft) 25 mg PO DAILY #90 tabs 03/13/24 0 08/07/24 Rx ondansetron 4 mg disintegrating 4 mg PO Q6H PRN nausea and 5 08/07/24 Rx tablet vomiting #90 tabs docosahexaenoic acid 200 mg mg PO 06/22/24 08/07/24 History capsule ( DHA) Last Menstrual Period: 05/02/24 Zika: Zika virus screening: Negative : No Have you fallen in the past year?: No PFSH PFSH Medical History (Updated 08/07/24 @ 14:[address] Karyna Carr MD) History of asthma Fatigue normal course Vaginal delivery Depression Contact with and (suspected) exposure to other viral communicable diseases Sinusitis Fibromyalgia Back pain Severe headache Family History Grandmother Breast cancer Paternal Aunt Breast cancer Other Migraines Social History adopted: No household members: spouse and children housing: house number of children: 1 current occupation: [employer] current occupational exposures/hazards: No pets and animals: Yes pets and animals: dog(s) history of recent travel: No sexually active: Yes Smoking Status: Never smoker alcohol intake: current alcohol intake frequency: holidays/special occasions only details: Not while substance use type: does not use well-balanced diet: daily or most days caffeine: Yes Type: coffee eating out: rarely or never during the past year weight has: remained stable what type of physical activity do you participate in: walking frequency: 1-2 times per week duration: 15-30 minutes/day eveline/faith: Scientologist seatbelt use: always do you feel safe at home: Yes additional social history: : [employer] History 2 Elective abortions Hx Para 1 Spontaneous abortions Hx # Term Pregnancies 1 Ectopic pregnancies Hx # Pregnancies Multiple births # of living children 1 Past Pregnancies Del. Date Name GA/Weeks Outcome Route Bth Weight Gen Labor Lgth Anesthesia Del Locatn Provider FOB 09/23/22 Kate 38 live - full term 7lbs 6oz Male epidural [facility] katia Carr [place] Delivery Date: 09/23/22 Last Updated by: Jenna Ahmadi SM IAL SROM boy kate HPI 14 wk ob Details: GRANT RUVALCABA is a 24 year old who presents for routine OB visit. OB Visit ERMA Calculator Estimated Delivery Date Method Current WG Current Estimate 02/06/25 LMP (Certain) 13w 6d Other Estimates 02/05/25 Ultrasound #1 14w 0d Expected Delivery Route/Plan Labor Preferences- CB/BF classes: [] labor support person: [] labor intervention preferences: [] pain management options preferred: [] cut cord/dad catch: [] : [] PP control planned: [] discussed possible routes of delivery and associated risks: [] special requests: [] Specific Issue/Plans Covid status: [] Flu vaccine: [] Tdap vaccine: [] Rhogam: [] LARC form signed: [] Problem list reviewed and updated with the most current plan of care details and appropriate orders placed. Relevant counseling for the gestational age provided. Continue routine care and follow up unless otherwise noted in visit notes/problem list details Initial Weight: 171 lb Date -???-???-???-???-???-?? ?-???-???-???-???-???-? ??- EGA Weight BP Urine Prot -???-???-???-???-???-?? ?-???-???-???-???-???-? ??- Glucose FHR FuHt Pres Dilation -???-???-???-???-???-?? ?-???-???-???-???-???-? ??- Effaced St Visit Note 07/06/24 -???-???-???-???-???-?? ?-???-???-???-???-???-? ??- 9w 2d 171 lb (+0 oz) 115/78 -???-???-???-???-???-?? ?-???-???-???-???-???-? ??- 168 -???-???-???-???-???-?? ?-???-???-???-???-???-? ??- (more content not included)... Normal [facility] Absolute lymphocyte countOrd ered By: Sharri Begum on 07-10-2024 Lymphocytes Auto (Unsp spec) [#/Vol] 1.50 10*3/uL 0.83-4.51 [facility] Absolute neutrophil countOrd ered By: Sharri Begum on 07-10-2024 Neutrophils (Bld) [#/Vol] 7.6 10*3/uL 2.0-7.7 [facility] Automated lymphocyte count a s percentage of total leukocytesOrdered By: Sharri Begum on 07-10-2024 Lymphocytes/100 WBC Auto (Unsp spec) 14.7 % Low 19-41 [facility] Basophil percentageOrdered B y: Sharri Begum on 07-10-2024 Basophils/100 WBC (Bld) 0.2 % 0-1 [facility] CBC W/Diff, Automatedon 06-14 Absolute Lymph 1.50 X10 3/uL Normal 0.83-4.51 [facility] Comment on above: Performed By: #### L 900.0098, L100.0100, L509.4005, L509.8000, L3890.6005, L3890.6100, L3890.6300, BTS, L501.9985 ####[facility] [address] [place], [address] Absolute Neut 7.6 X10 3/uL Normal 2.0-7.7 [facility] Comment on above: Performed By: #### L 900.0098, L100.0100, L509.4005, L509.8000, L3890.6005, L3890.6100, L3890.6300, BTS, L501.9985 ####[facility] [address] [place], [address] Basophils/100 WBC (Bld) 0.2 % Normal 0-1 [facility] Comment on above: Performed By: #### L 900.0098, L100.0100, L509.4005, L509.8000, L3890.6005, L3890.6100, L3890.6300, BTS, L501.9985 ####[facility] [address] [place], [address] Eosinophils/100 WBC (Bld) 2.0 % Normal 0-5 [facility] Comment on above: Performed By: #### L 900.0098, L100.0100, L509.4005, L509.8000, L3890.6005, L3890.6100, L3890.6300, BTS, L501.9985 ####[facility] [address] [place], [address] Erythrocyte distribution width (RBC) [Ratio] 12.8 % Normal 11.6-14.6 [facility] Comment on above: Performed By: #### L 900.0098, L100.0100, L509.4005, L509.8000, L3890.6005, L3890.6100, L3890.6300, BTS, L501.9985 ####[facility] [address] [place], [address] Hematocrit (Bld) [Volume fraction] 38.8 % Normal 37-47 [facility] Comment on above: Performed By: #### L 900.0098, L100.0100, L509.4005, L509.8000, L3890.6005, L3890.6100, L3890.6300, BTS, L501.9985 ####[facility] [address] [place], [address] Hemoglobin (Bld) [Mass/Vol] 12.8 g/dL Normal 12.0-15.0 [facility] Comment on above: Performed By: #### L 900.0098, L100.0100, L509.4005, L509.8000, L3890.6005, L3890.6100, L3890.6300, BTS, L501.9985 ####[facility] [address] [place], [address] IG% 0.300 Normal 0.0-0.9 [facility] Comment on above: Result Comment: IG% - Immature Granulocytes (promyelocytes, myelocytes and metamyelocytes) > 1% indicates that a LEFT SHIFT is Present. Performed By: #### L 900.0098, L100.0100, L509.4005, L509.8000, L3890.6005, L3890.6100, L3890.6300, BTS, L501.9985 ####[facility] [address] [place], [address] Lymphocytes/100 WBC (Bld) 14.7 % Low 19-41 [facility] Comment on above: Performed By: #### L 900.0098, L100.0100, L509.4005, L509.8000, L3890.6005, L3890.6100, L3890.6300, BTS, L501.9985 ####[facility] [address] [place], [address] MCH (RBC) [Entitic mass] 30.3 pg Normal 27.0-32.0 [facility] Comment on above: Performed By: #### L 900.0098, L100.0100, L509.4005, L509.8000, L3890.6005, L3890.6100, L3890.6300, BTS, L501.9985 ####[facility] [address] [place], [address] MCHC (RBC) [Mass/Vol] 33.0 g/dL Normal 32-36 [facility] Comment on above: Performed By: #### L 900.0098, L100.0100, L509.4005, L509.8000, L3890.6005, L3890.6100, L3890.6300, BTS, L501.9985 ####[facility] [address] [place], [address] MCV (RBC) [Entitic vol] 91.7 fL Normal 81-99 [facility] Comment on above: Performed By: #### L 900.0098, L100.0100, L509.4005, L509.8000, L3890.6005, L3890.6100, L3890.6300, BTS, L501.9985 ####[facility] [address] [place], [address] Monocytes/100 WBC (Bld) 8.6 % Normal 0-10 [facility] Comment on above: Performed By: #### L 900.0098, L100.0100, L509.4005, L509.8000, L3890.6005, L3890.6100, L3890.6300, BTS, L501.9985 ####[facility] [address] [place], [address] Neutrophils/100 WBC (Bld) 74.2 % High 47-70 [facility] Comment on above: Performed By: #### L 900.0098, L100.0100, L509.4005, L509.8000, L3890.6005, L3890.6100, L3890.6300, BTS, L501.9985 ####[facility] [address] [place], [address] Nucleated RBC (Bld) [#/Vol] 0 10*3/uL Normal 0-5 [facility] Comment on above: Performed By: #### L 900.0098, L100.0100, L509.4005, L509.8000, L3890.6005, L3890.6100, L3890.6300, BTS, L501.9985 ####[facility] [address] [place], [address] Platelet mean volume (Bld) [Entitic vol] 11.2 fL Normal 6.2-12.0 [facility] Comment on above: Performed By: #### L 900.0098, L100.0100, L509.4005, L509.8000, L3890.6005, L3890.6100, L3890.6300, BTS, L501.9985 ####[facility] [address] [place], [address] Platelets (Bld) [#/Vol] 349 10*3/uL Normal 150-450 [facility] Comment on above: Performed By: #### L 900.0098, L100.0100, L509.4005, L509.8000, L3890.6005, L3890.6100, L3890.6300, BTS, L501.9985 ####[facility] [address] [place], [address] RBC (Bld) [#/Vol] 4.23 10*6/uL Normal 4.2-5.4 [facility] Comment on above: Performed By: #### L 900.0098, L100.0100, L509.4005, L509.8000, L3890.6005, L3890.6100, L3890.6300, BTS, L501.9985 ####[facility] [address] [place], [address] RDW SD 43.0 fl Normal 35.1-43.9 [facility] Comment on above: Performed By: #### L 900.0098, L100.0100, L509.4005, L509.8000, L3890.6005, L3890.6100, L3890.6300, BTS, L501.9985 ####[facility] [address] [place], [address] WBC (Bld) [#/Vol] 10.2 10*3/uL Normal 4.4-11.0 [facility] Comment on above: Performed By: #### L 900.0098, L100.0100, L509.4005, L509.8000, L3890.6005, L3890.6100, L3890.6300, BTS, L501.9985 ####[facility] [address] [place], [address] Chlamydia/GC SHANITA aptimaon CHLAMY,NUC ACID Negative Normal Negative [facility] Comment on above: Performed By: #### M 100.2200, L7000.1800 ####[facility] [address] [place], [place], [id number] GC BY NUC ACID Negative Normal Negative [facility] Comment on above: Result Comment: Perf ormed at: =G - [facility] [address] [place] [id number] [employer]: Lise Chaparro MD, Phone: [phone] Performed By: #### M 100.2200, L7040.1800 ####[facility] [address] [place], [place], [address] Eosinophil percentageOrdered By: Sharri Begum on 07-10-2024 Eosinophils/100 WBC (Bld) 2.0 % 0-5 [facility] Erythrocyte distribution wid th ratioOrdered By: Sharri Begum on 07-10-2024 Erythrocyte distribution width (RBC) [Ratio] 12.8 % 11.6-14.6 [facility] Erythrocyte distribution wid th standard deviationOrdered By: Sharri Begum on 07-10-2024 Erythrocyte distribution width (RBC) [Ratio] 43.0 fl 35.1-43.9 [facility] HIV - WCHon 07-10-2024 HIV Non-Reactive Normal Nonreactive [facility] Comment on above: Order Comment: Reaso n for Exam: Performed By: #### L 900.0098, L100.0100, L509.4005, L509.8000, L3890.6005, L3890.6100, L3890.6300, BTS, L501.9985 ####[facility] [address] [place], [place], [address] HIV 1 and HIV-2 antibody ass ay with HIV-1 p24 antigen detectionOrdered By: Sharri Begum on 07-10-2024 HIV 1+2 Ab+HIV1 p24 Ag IA Ql Non-Reactive Nonreactive [facility] Hematocrit Auto (Bld) [Volum e fraction]Ordered By: Sharri Begum on 07-10-2024 Hematocrit (Bld) [Volume fraction] 38.8 % 37-47 [facility] Hemoglobin A1con 07-10-2024 HbA1c (Bld) [Mass fraction] 5.0 % Normal 3.8-5.6 [facility] Comment on above: Result Comment: Norm al < 5.7 % Prediabetic 5.7 - 6.4 % Diabetic >or= 6.5 % Please note range changes. Performed By: #### L 900.0098, L100.0100, L509.4005, L509.8000, L3890.6005, L3890.6100, L3890.6300, BTS, L501.9985 ####[facility] [address] [place], [place], [id number] Hemoglobin A1c percentageOrd ered By: Sharri Begum on 07-10-2024 HbA1c (Bld) [Mass fraction] 5.0 % 3.8-5.6 [facility] Comment on above: Normal < 5.7 % Predi abetic 5.7 - 6.4 % Diabetic >or= 6.5 % Please note range changes. Hemoglobin measurementOrdere d By: Sharri Begum on 07-10-2024 Hemoglobin (Bld) [Mass/Vol] 12.8 g/dL 12.0-15.0 [facility] Hepatitis B Surface Antigeno n 07-10-2024 HEP B Surf Ag Non-Reactive Normal Nonreactive [facility] Comment on above: Order Comment: Reaso n for Exam: Performed By: #### L 900.0098, L100.0100, L509.4005, L509.8000, L3890.6005, L3890.6100, L3890.6300, BTS, L501.9985 ####[facility] [address] [place], [place], [id number] Hepatitis C Antibodyon 07-10 Hepatitis C AB Non-Reactive Normal Nonreactive [facility] Comment on above: Order Comment: Reaso n for Exam: Result Comment: Non Reactive: < 0.8 Equivocal: >/= 0.8 to < 1.0 Reactive: >/= 1.0 The CDC requires that a reactive/equivocal HCV antibody result be sent out for confirmation. HCV Quant by PCR testing. Performed By: #### L 900.0098, L100.0100, L509.4005, L509.8000, L3890.6005, L3890.6100, L3890.6300, BTS, L501.9985 ####[facility] [address] [place], [address] Immature granulocytes/100 WB C Auto (Bld)Ordered By: Sharri Begum on 07-10-2024 Immature granulocytes/100 WBC (Bld) 0.300 % 0.0-0.9 [facility] Comment on above: IG% - Immature Granu locytes (promyelocytes, myelocytes and metamyelocytes) > 1% indicates that a LEFT SHIFT is Present. L509.8000on 07-10-2024 Syphilis Abs Non-Reactive Normal [facility] Comment on above: Order Comment: Reaso n for Exam: Performed By: #### L 900.0098, L100.0100, L509.4005, L509.8000, L3890.6005, L3890.6100, L3890.6300, BTS, L501.9985 ####[facility] [address] [place], [address] MCV (mean corpuscular volume ) determinationOrdered By: Sharri Begum on 07-10-2024 MCV (RBC) [Entitic vol] 91.7 fL 81-99 [facility] Mean corpuscular hemoglobin (MCH) determinationOrdered By: Sharri Begum on 07-10-2024 MCH (RBC) [Entitic mass] 30.3 pg 27.0-32.0 [facility] Mean corpuscular hemoglobin concentration (MCHC) determinationOrdered By: Sharri Begum on 07-10-2024 MCHC (RBC) [Mass/Vol] 33.0 g/dL 32-36 [facility] Mean platelet volume determi nationOrdered By: Sharri Begum on 07-10-2024 Platelet mean volume (Bld) [Entitic vol] 11.2 fL 6.2-12.0 [facility] Monocyte percentageOrdered B y: Sharri Begum on 07-10-2024 Monocytes/100 WBC (Bld) 8.6 % 0-10 [facility] NATERAon 07-10-2024 NATURA SEE SCANNED REPORT Normal [facility] Comment on above: Performed By: #### L 900.0098, L100.0100, L509.4005, L509.8000, L3890.6005, L3890.6100, L3890.6300, BTS, L501.9985 ####[facility] [address] [place], [place], [id number] Neutrophil percentageOrdered By: Sharri Begum on 07-10-2024 Neutrophils/100 WBC (Bld) 74.2 % High 47-70 [facility] Nucleated red blood cell per centageOrdered By: Sharri Begum on 07-10-2024 Nucleated RBC/100 WBC (Bld) [Ratio] 0 % 0-5 [facility] Platelet countOrdered By: Baljit Begum on 07-10-2024 Platelets (Bld) [#/Vol] 349 10*3/uL 150-450 [facility] RBC Auto (Bld) [#/Vol]Ordere d By: Sharri Begum on 07-10-2024 RBC (Bld) [#/Vol] 4.23 10*6/uL 4.2-5.4 [facility] Rubella IgGon 07-10-2024 Rubella IgG Reactive Normal Nonreactive [facility] Comment on above: Order Comment: Reaso n for Exam: Result Comment: Anti body Results Interpretation of Immune Status Non Reactive Presumed Non-Immune Equivocal Equivocal Reactive Presumed Immune Performed By: #### L 900.0098, L100.0100, L509.4005, L509.8000, L3890.6005, L3890.6100, L3890.6300, BTS, L501.9985 ####[facility] [address] [place], [place], [id number] Serum Treponema species anti body detectionOrdered By: Sharri Begum on 07-10-2024 Treponema sp Ab Ql (S) Non-Reactive [facility] Type AND Screenon 07-10-2024 ABO and Rh group Nom (Bld) Blood group O Rh(D) positive Normal [facility] Comment on above: Order Comment: PN Performed By: #### L 900.0098, L100.0100, L509.4005, L509.8000, L3890.6005, L3890.6100, L3890.6300, BTS, L501.9985 ####[facility] [address] [place], [address] White blood cell (WBC) count Ordered By: Sharri Begum on 07-10-2024 WBC (Bld) [#/Vol] 10.2 10*3/uL 4.4-11.0 [facility] Urine Cultureon 07-08-2024 URC Mixed Gram Positive Organisms [place] Count 1000-10,000 MIXC Mixed contaminants. Submit a new specimen if indicated. Normal [facility] Comment on above: Performed By: #### M 100.2200, L7000.1800 ####[facility] [address] [place], [place], [address] Chlamydia trachomatis rRNA d etection by probe and target amplification methodOrdered By: Sharri Begum on 07-06-2024 C. trachomatis rRNA SHANITA+probe Ql (Unsp spec) Negative Negative [facility] Neisseria gonorrhoeae nuclei c acid detection by amplified probe techniqueOrdered By: Sharri Begum on 07-06-2024 N. gonorrhoeae DNA SHANITA+probe Ql (Unsp spec) Negative Negative [facility] Comment on above: Performed at: =[address] [id number] Director: Lise Chaparro MD, Phone: [phone] [employer] Office Visit Reporton 07-06-2024 [employer] Office Visit Report [facility] [address], [address] [place] [address] OFFICE VISIT Date of Service: 07/06/24 MR#: [id number] Acct: [id number] Name: GRANT RUVALCABA Rep #: [id number] : 2000 Provider: SPIKE Adams ams Age/Sex: 24/F Location: [facility] Status: Signed Intake Vital Signs 04/03/24 13:02 07/06/24 13:08 07/06/24 13:11 Height 5 ft 5 ft 5 ft Weight: 171 lb BMI 33.4 BP 115/78 Intake Visit Reasons: New OB, LMP 05/02, ERMA 02/06/25 Coal Sample Tester Required: No Is patient in pain?: No Allergies No Known Allergies Allergy (Verified 07/06/24 13:08) Medications ???Medication ???Instructions ???Recorded ???Confirmed ???Type ferrous sulfate 140 mg (45 mg 140 mg PO DAILY 03/04/22 07/06/24 History iron) tablet,extended release cholecalciferol (vitamin D3) 25 25 mcg PO QDAY 03/13/24 07/06/24 History mcg (1,000 unit) capsule sertraline 25 mg tablet (Zoloft) 25 mg PO DAILY #90 tabs 03/13/24 07/06/24 Rx ondansetron 4 mg disintegrating 4 mg PO Q6H PRN nausea and 06/18/24 07/06/24 Rx tablet vomiting #90 tabs docosahexaenoic acid 200 mg mg PO 06/22/24 07/06/24 History capsule ( DHA) Last Menstrual Period: 05/02/24 : No PFSH PFSH Medical History History of asthma Fatigue normal course Vaginal delivery Depression Contact with and (suspected) exposure to other viral communicable diseases Sinusitis Fibromyalgia Back pain Severe headache Family History Grandmother Breast cancer Paternal Aunt Breast cancer Other Migraines Social History adopted: No household members: spouse and children housing: house number of children: 1 current occupation: [employer] current occupational exposures/hazards: No pets and animals: Yes pets and animals: dog(s) history of recent travel: No sexually active: Yes Smoking Status: Never smoker alcohol intake: current alcohol intake frequency: holidays/special occasions only details: Not while substance use type: does not use well-balanced diet: daily or most days caffeine: Yes Type: coffee eating out: rarely or never during the past year weight has: remained stable what type of physical activity do you participate in: walking frequency: 1-2 times per week duration: 15-30 minutes/day eveline/faith: Scientologist seatbelt use: always do you feel safe at home: Yes additional social history: : [employer] History 2 Elective abortions Hx Para 1 Spontaneous abortions Hx # Term Pregnancies 1 Ectopic pregnancies Hx # Pregnancies Multiple births # of living children 1 Past Pregnancies Del. Date Name GA/Weeks Outcome Route Bth Weight Gen Labor Lgth Anesthesia Del Locatn Provider FOB 09/23/22 Kate 38 live - full term 7lbs 6oz Male epidural [facility] S katia Daily Delivery Date: 09/23/22 Last Updated by: Jenna Ahmadi SM IAL SROM boy kate HPI New OB, LMP 05/02, ERMA 02/06/25 Details: GRANT RUVALCABA is a 24 year old who presents for New OB visit. OB Visit ERMA Calculator Estimated Delivery Date Method Current WG Current Estimate 02/06/25 LMP (Certain) 9w 2d Other Estimates 02/05/25 Ultrasound #1 9w 3d Estimated Due Date: 02/06/25 Expected Delivery Route/Plan Labor Preferences- CB/BF classes: [] labor support person: [] labor intervention preferences: [] pain management options preferred: [] cut cord/dad catch: [] : [] PP control planned: [] discussed possible routes of delivery and associated risks: [] special requests: [] Specific Issue/Plans Covid status: [] Flu vaccine: [] Tdap vaccine: [] Rhogam: [] LARC form signed: [] Problem list reviewed and updated with the most current plan of care details and appropriate orders placed. Relevant counseling for the gestational age provided. Continue routine care and follow up unless otherwise noted in visit notes/problem list details Initial Weight: 171 lb Date -???-???-???-???-???-?? ?-???-???-???-???-???-? ??- EGA Weight BP Urine Prot -???-???-???-???-???-?? ?-???-???-???-???-???-? ??- Glucose FHR FuHt Pres Dilation -???-???-???-???-???-?? ?-???-???-???-???-???-? ??- Effaced St Visit Note 07/06/24 -???-???-???-???-???-?? ?-???-???-???-???-???-? ??- 9w 2d 171 lb (+0 oz) 115/78 -???-???-???-???-???-?? ?-???-???-???-???-???-? ??- 168 -???-???-???-???-???-?? ?-???-???-???-???-???-? ??- KW- CRL cons with dates. accepts NIPT. Menstrual History Last Menstrual Period: 05/02/24 (more content not included)... Normal [facility] Urine cultureOrdered By: Luis Begum on 07-06-2024 Bacteria identified Cx Nom (U) Positive Abnormal [facility] PAP IG HPV APTIMA 16/18,45on 04-11-2024 ADEQ Comment Normal . [facility] Comment on above: Order Comment: Speci men Comment: [id number] Comment: Source.............CervixSpecimen Comment: LMP / Prev Treat...[id number] Comment: No. of containers..01 ThinPrep Vial Result Comment: Sati sfactory for evaluation. Endocervical and/or squamous metaplastic cells (endocervical component) are present. Performed By: #### L 7400.0280 ####[facility] [address] [place], [address] COMM . Normal . [facility] Comment on above: Order Comment: Speci men Comment: [id number] Comment: Source.............CervixSpecimen Comment: LMP / Prev Treat...[id number] Comment: No. of containers..01 ThinPrep Vial Performed By: #### L 7400.0280 ####[facility] [address] [place], [place], [id number] COMMENT Comment Normal . [facility] Comment on above: Order Comment: Speci men Comment: [id number] Comment: Source.............CervixSpecimen Comment: LMP / Prev Treat...[id number] Comment: No. of containers..01 ThinPrep Vial Result Comment: This liquid based ThinPrep(R) pap test was screened with the use of an image guided system. Performed By: #### L 7400.0280 ####[facility] [address] [place], [place], [address] DIAG Comment Normal . [facility] Comment on above: Order Comment: Speci men Comment: [id number] Comment: Source.............CervixSpecimen Comment: LMP / Prev Treat...[id number] Comment: No. of containers..01 ThinPrep Vial Result Comment: NEGA TIVE FOR INTRAEPITHELIAL LESION OR MALIGNANCY. THIS SPECIMEN WAS RESCREENED PART OF OUR VEST MAKER PROGRAM. Performed By: #### L 7400.0280 ####[facility] [address] [place], [address] HPV APTIMA, HR Negative Normal Negative [facility] Comment on above: Order Comment: Speci men Comment: [id number] Comment: Source.............CervixSpecimen Comment: LMP / Prev Treat...[id number] Comment: No. of containers..01 ThinPrep Vial Result Comment: This nucleic acid amplification test detects fourteen high- risk HPV types (16,18,31,33,35,39,45,51,52,56,58,59,66,68) without differentiation. Performed By: #### L 7400.0280 ####[facility] [address] [place], [place], [address] HPV Alisson Rfx Comment Normal . [facility] Comment on above: Order Comment: Speci men Comment: [id number] Comment: Source.............CervixSpecimen Comment: LMP / Prev Treat...[id number] Comment: No. of containers..01 ThinPrep Vial Result Comment: Crit missy not met, HPV Genotype not performed. Performed at: - [address] [id number] [employer]: Lise Chaparro MD, Phone: [phone] Performed at: =G - [facility] [address] [id number] [employer]: Lise Chaparro MD, Phone: [phone] Performed By: #### L 7400.0280 ####[facility] [address] [place], [place], [address] PAPSMR Comment Normal . [facility] Comment on above: Order Comment: Speci men Comment: [id number] Comment: Source.............CervixSpecimen Comment: LMP / Prev Treat...[id number] Comment: No. of containers..01 ThinPrep Vial Result Comment: The Pap smear is a screening test designed to aid in the detection of premalignant and malignant conditions of the uterine cervix. It is not a diagnostic procedure and should not be used as the sole means of detecting cervical cancer. Both false-positive and false-negative reports do occur. Performed By: #### L 7400.0280 ####[facility] [address] [place], [place], [address] PERFORM Comment Normal . [facility] Comment on above: Order Comment: Speci men Comment: [id number] Comment: Source.............CervixSpecimen Comment: LMP / Prev Treat...[id number]=[id number] Comment: No. of containers..01 ThinPrep Vial Result Comment: Anais Aguilera, Seasoner Hand (ASCP) Performed By: #### L 7400.0280 ####[facility] [address] [place], [place], [address] QC REV Comment Normal . [facility] Comment on above: Order Comment: Speci men Comment: [id number] Comment: Source.............CervixSpecimen Comment: LMP / Prev Treat...[id number] Comment: No. of containers..01 ThinPrep Vial Result Comment: Lela De Oliveira, Seasoner Hand (ASCP) Performed By: #### L 7400.0280 ####[facility] [address] [place], [place], [address] Thyroid Peroxidase ABon 03-14 THYR PEROX AB 17 IU/mL Normal 0-34 [facility] Comment on above: Result Comment: Perf ormed at: CB - [facility] [address] [id number] [employer]: Clyde Linda PhD, Phone: [phone] Performed By: #### L 506.1000, D697.7187, Q307.0006, Z9323.0767 ####[facility] [address] [place], [place], [address] [employer] Office Visit Reporton 04-03-2024 [employer] Office Visit Report [facility] [address], [address] [place] [address] OFFICE VISIT Date of Service: 04/03/24 MR#: [id number] Acct: [id number] Name: GRANT ARMSTRONG Rep #: [id number] : 2000 Provider: SAADIA presley Age/Sex: 24/F Location: [facility] Status: Signed Intake Vital Signs 03/13/24 13:10 04/03/24 12:57 04/03/24 13:02 Height 5 ft 5 ft 5 ft Weight: 162 lb 6 oz BMI 31.7 BP 112/78 Intake Visit Reasons: pap r/s Chief Complaint: Annual Coal Sample Tester Required: No Is patient in pain?: No Allergies No Known Allergies Allergy (Verified 04/03/24 12:56) Medications ???Medication ???Instructions ???Recorded ???Confirmed ???Type ferrous sulfate 140 mg (45 mg 140 mg PO DAILY 03/04/22 04/03/24 History iron) tablet,extended release naproxen 500 mg tablet 500 mg PO BID PRN pain #20 tabs 09/25/22 04/03/24 Rx cholecalciferol (vitamin D3) 25 25 mcg PO QDAY 03/13/24 04/03/24 History mcg (1,000 unit) capsule sertraline 25 mg tablet (Zoloft) 25 mg PO DAILY #90 tabs 03/13/24 04/03/24 Rx Is last menstrual period known: Yes Last Menstrual Period: 03/12/24 Post menopausal: No Patient : No : No PFSH Medical History normal course Vaginal delivery Depression Contact with and (suspected) exposure to other viral communicable diseases Sinusitis Fibromyalgia Back pain Severe headache Family History Grandmother Breast cancer Paternal Other Migraines Social History adopted: No household members: significant other housing: house current occupational status: employed 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 current occupational exposures/hazards: No pets and animals: Yes pets and animals: dog(s) history of recent travel: No sexually active: Yes Smoking Status: Never smoker alcohol intake: former details: occasional substance use type: does not use well-balanced diet: about half the time caffeine: Yes Type: carbonated beverages Number of servings: 1 eating out: 1-3 times/week during the past year weight has: remained stable what type of physical activity do you participate in: walking frequency: 1-2 times per week duration: 15-30 minutes/day eveline/faith: Scientologist seatbelt use: always do you feel safe at home: Yes additional social history: Boyfriend- Killian - [employer] History 1 Elective abortions Hx Para 1 Spontaneous abortions Hx # Term Pregnancies Ectopic pregnancies Hx # Pregnancies Multiple births # of living children 1 Past Pregnancies Del. Date Name GA/Weeks Outcome Route Bth Weight Infant Gen Labor Lgth Anesthesia Del Locatn Provider FOB 09/23/22 Kate 38 live - full term Male epidural [facility] vernell Carr Killian Delivery Date: 09/23/22 Last Updated by: Jenna JUSTIN IAL SROM boy kate HPI pap r/s Details: GRANT ARMSTRONG is a 24 year old who presents for annual exam. Noting more fatigue even with increased or adequate sleep. Is taking FE for history anemia and now on PNV. No contraception and ok Last PAP: 2022 neg History of abnormal PAP: 2021 ASCUS, + HPV Last mammogram: age 39 Female Reproductive History Last Menstrual Period: 03/12/24 Cycle Length: 21-35 Questions: metorrhagia: No, sexually active: Yes, dyspareunia: No and PCB: No ROS Const Constitutional: Reports as per HPI; Denies weight gain or weight loss Cardio Card: Denies chest pain Resp Resp: Denies cough or dyspnea on exertion GI GI: Denies abdominal pain, bloating, change in stool character, constipation or vomiting : Reports as per HPI; Denies difficulty voiding, pelvic pain, urinary frequency, urinary incontinence, urinary urgency, vaginal discharge or vaginal pruritus Exam Const General: cooperative, healthy appearing, no acute distress and well developed Orientation: alert, oriented to person and oriented to place HENAR Head: normal to inspection Neck Neck: normal visual inspection Thyroid: thyroid normal Lymphatic: no lymphadenopathy noted Chest Breast inspection: normal inspection of the breasts and normal inspection of the axillae Breast palpation: normal palpation of the breasts, normal palpation of the axillae and no axillary lymphadenopathy Resp Effort Inspection: normal respiratory effort GI Palpation: soft, no masses and nontender Rectal Exam: deferred External Female Exam: normal external appearance and normal appearance of the urethra Urethra: normal appearance of the urethra and normal palpation Speculum Exam - Vagina: normal appearance of th (more content not included)... Normal [facility] T4 Free Directon 04-03-2024 T4 FREE DIRECT 0.81 ng/dL Normal 0.76-1.46 [facility] Comment on above: Performed By: #### L 506.1000, L501.9520, L506.0400, L3300.6900 ####[facility] [address] [place], [address] Thyroid Stim Hormone (TSH)on 04-03-2024 TSH 3.310 uIU/mL Normal 0.358-3.740 [facility] Comment on above: Performed By: #### L 506.1000, L501.9520, L506.0400, L3300.6900 ####[facility] [address] [place], [address] Vitamin D,25 Hydroxyon 04-03 Vitamin D 25-OH 55.1 ng/mL Normal [facility] Comment on above: Result Comment: Ngozi min D 25(OH) Status Range Deficiency <20 ng/mL (50nmol/L) Insufficiency 20 - 30 ng/mL (50 - 75 nmol/L) Sufficiency 30 - 100 ng/mL (75 - 250 nmol/L) Toxicity >100 ng/mL (>250 nmol/L) Performed By: #### L 506.1000, L501.9520, L506.0400, L3300.6900 ####[facility] [address] 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) Coal Sample Tester Required: No Is patient in pain?: No Allergies No Known Allergies Allergy (Verified 03/13/24 13:03) Medications ???Medication ???Instructions ???Recorded ???Confirmed ???Type ferrous sulfate 140 mg (45 mg 140 mg PO DAILY 03/04/22 03/13/24 History iron) tablet,extended release naproxen 500 mg tablet 500 mg PO BID PRN pain #20 tabs 09/25/22 03/13/24 Rx cholecalciferol (vitamin D3) 25 25 mcg PO QDAY 03/13/24 03/13/24 History mcg (1,000 unit) capsule sertraline 25 mg tablet (Zoloft) 25 mg PO DAILY #90 tabs 03/13/24 03/13/24 Rx Is last menstrual period known: Yes Last Menstrual Period: 03/12/24 Post menopausal: No Patient : No : No PFSH Medical History normal course Vaginal delivery Depression Contact with and (suspected) exposure to other viral communicable diseases Sinusitis Fibromyalgia Back pain Severe headache Family History Grandmother Breast cancer Paternal Other Migraines Social History adopted: No household members: significant other housing: house current occupational status: employed 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 current occupational exposures/hazards: No pets and animals: Yes pets and animals: dog(s) history of recent travel: No sexually active: Yes Smoking Status: Never smoker alcohol intake: former details: occasional substance use type: does not use well-balanced diet: about half the time caffeine: Yes Type: carbonated beverages Number of servings: 1 eating out: 1-3 times/week during the past year weight has: remained stable what type of physical activity do you participate in: walking frequency: 1-2 times per week duration: 15-30 minutes/day eveline/faith: Scientologist seatbelt use: always do you feel safe at home: Yes additional social history: Boyfriend- Killian - [employer] HPI Encounter for routine gynecological examination Details: GRANT ARMSTRONG is a 23 year old who presents originally for annual exam but wants to discuss menses occurring every 25-30 days, last 3 days. Wants to conceive in April and wants to make sure that is ok. She also wants to go to [place] in October 2024 and wants to know if allowed to fly when . Currently using condoms. She is due for pap but started menses last night and very heavy today. Female Reproductive History Last Menstrual Period: 03/12/24 History 1 Elective abortions Hx Para 1 Spontaneous abortions Hx # Term Pregnancies Ectopic pregnancies Hx # Pregnancies Multiple births # of living children 1 Past Pregnancies Del. Date Name GA/Weeks Outcome Route Bth Weight Infant Gen Labor Lgth Anesthesia Del Locatn Provider FOB 09/23/22 Kate 38 live - full term Male epidural [facility] vernell Magaly Daily Delivery Date: 09/23/22 Last Updated by: Jenna Ahmadi SM IAL SROM boy kate ROS Const Constitutional: Reports system reviewed and no additional complaints, except as documented Eyes Eyes: Reports system reviewed and no additional complaints, except as documented GI GI: Denies abdominal pain or change in bowel habits : Reports as per HPI Exam Const General: cooperative and no acute distress Orientation: oriented x3 HENMT Head: normal to inspection and normocephalic Eyes General: appearance normal, both eyes and all related structures Neck Neck: normal visual inspection Resp Effort Inspection: normal respiratory effort Neuro Cognition: normal cognition Speech: speech normal Psych Appearance: grossly normal Mood: congruent mood Affect: normal affect Speech and Movement: speech and movement normal Attitude: cooperative Judgment: judgment good Coding Level of Care Code Off vis,est,level 3 Diagnoses Depression, unspecified depression type F32.A Depression Type: unspecified 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al R87.610; R87.810 Pre-conception counseling Z31.69 Assessment and Plan Assessment and Plan (1) Depression: Status: Acute Qualifiers: Depression Type: unspecified Qualified Code(s): F32.A - Depression, unspecified (more content not included)... Normal [facility] EMERGENCY REPORTon 4 EMERGENCY REPORT [facility] EMERGENCY ROOM REPORT NAME ACCOUNT SEX AGE ADMIT DISCHARGE PT MED. RECORD# NUMBER DATE DATE TYPE PATTI [id number] F 06/19/23 06/19/23 3 GRANT Reyes [id number] ROOM: ER DATE OF : 2000 DICTATING [...] Yudy Matthews DO 06/19/23 09:36 JOB #: [id number] Transcribed By: am 06/20/23 07:05 Electronically signed by: Dr. Yudy Matthews DO 06/30/23 08:36 Page 2 of 2 GRANT ARMSTRONG Emergency Room Report Normal [facility] EMERGENCY REPORT [facility] EMERGENCY ROOM REPORT NAME ACCOUNT SEX AGE ADMIT DISCHARGE PT MED. RECORD# NUMBER DATE DATE TYPE PATTI [id number] F 06/19/23 06/19/23 3 GRANT Reyes [id number] ROOM: ER DATE OF : 2000 DICTATING [...] is to push clear fluids, cough medicine dfcv-eby-obkweqo as needed. She is to followup with primary care physician in 3 to 5 days as needed, sooner if worse or return. Dictated By: Yudy Matthews DO 06/19/23 10:00 JOB #: [id number] Transcribed By: am 06/20/23 07:17 Electronically signed by: Dr. Yudy Matthews, 06/30/23 08:36 Page 1 of 1 GRANT ARMSTRONG Emergency Room Report Normal [facility] BMP with eGFRon 06-19-2023 AGE 23 years Normal [facility] Comment on above: Performed By: #### 2 17735 #### [facility],[address] [place] [address]390 Anion gap [Moles/Vol] 16 mmol/L Normal 10 - 20 [facility] Comment on above: Performed By: #### 2 12008 #### [facility],[address] [place] [address] 77267 BMP with eGFR Normal [facility] Comment on above: Result Comment: BASI C METABOLIC PANEL Performed By: #### 2 43164 #### [facility],[address] [place] [address]1289 Calcium [Mass/Vol] 8.9 mg/dL Normal 8.5 - 10.1 [facility] Comment on above: Performed By: #### 2 58545 #### [facility],[address] [place] [address] 24277 Chloride [Moles/Vol] 100 mmol/L Normal 98 - 107 [facility] Comment on above: Performed By: #### 2 49460 #### [facility],[address] [place] [address] 64037 CO2 [Moles/Vol] 22.4 mmol/L Normal 21.0 - 32.0 [facility] Comment on above: Performed By: #### 2 05905 #### [facility],[address] [place] [address]9716 Creatinine [Mass/Vol] 0.72 mg/dL Normal 0.55 - 1.02 [facility] Comment on above: Performed By: #### 2 40605 #### [facility],[address] [place] [address] 91271 GFR/1.73 sq M.predicted among non-blacks MDRD (S/P/Bld) [Vol rate/Area] mL/min/{1.73_m2} Normal 60 - 999 [facility] Comment on above: Performed By: #### 2 11003 #### [facility],[address] [place] [address] Result Comment: ACCO RDING TO THE NATIONAL KIDNEY DISEASE EDUCATION PROGRAM(NKDE), A NORMAL eGFR IS A VALUE GREATER THAN OR EQUAL TO 60 ML/MIN/1.73 SQ METERS. CHRONIC KIDNEY DISEASE: <60mL/MIN/1.73 SQ METERS KIDNEY FAILURE: <15mL/MIN/1.73 SQ METERS THIS TEST SHOULD ONLY BE USED FOR PATIENTS 18 YEARS OF AGE AND OLDER. Glucose [Mass/Vol] 99 mg/dL Normal 74 - 106 [facility] Comment on above: Performed By: #### 2 68045 #### [place] [address] Potassium [Moles/Vol] 3.6 mmol/L Normal 3.5 - 5.1 [facility] Comment on above: Performed By: #### 2 27952 #### [place] [address] Sodium [Moles/Vol] 135 mmol/L Low 136 - 145 [facility] Comment on above: Performed By: #### 2 67490 #### [place] [address] Urea nitrogen [Mass/Vol] 10 mg/dL Normal 7 - 18 [facility] Comment on above: Performed By: #### 2 37313 #### [place] [id number] CBC + DIFFon 06-19-2023 Baso # 0.00 x10EE3/UL Normal 0.00 - 0.10 [facility] Comment on above: Performed By: #### 2 21489 #### [place] [id number] Basophils/100 WBC (Bld) 0.3 % Normal 0.0 - 2.0 [facility] Comment on above: Performed By: #### 2 61485 #### [facility],[address] [place] [address] CBC + DIFF Normal [facility] Comment on above: Result Comment: CBC- COMPLETE BLOOD COUNT Performed By: #### 2 41426 #### [facility],[address] [place] [address] EO # 0.00 x10EE3/UL Normal 0.00 - 0.50 [facility] Comment on above: Performed By: #### 2 20749 #### [facility],[address] [place] [address] Eosinophils/100 WBC (Bld) 0.0 % Normal 0.0 - 7.0 [facility] Comment on above: Performed By: #### 2 89280 #### [facility],[address] [place] [address] Erythrocyte distribution width (RBC) [Ratio] 12.7 % Normal 12.0 - 15.6 [facility] Comment on above: Performed By: #### 2 87095 #### [facility],[address] [place] [address] Hematocrit (Bld) [Volume fraction] 38.0 % Normal 34.0 - 46.0 [facility] Comment on above: Performed By: #### 2 51052 #### [facility],[address] [place] [address] Hemoglobin (Bld) [Mass/Vol] 12.7 g/dL Normal 12.0 - 16.0 [facility] Comment on above: Performed By: #### 2 13751 #### [facility],[address] [place] [address] Lymph # 0.40 x10EE3/UL Low 0.80 - 2.80 [facility] Comment on above: Performed By: #### 2 59784 #### [facility],[address] [place] [address] Lymphocytes/100 WBC (Bld) 5.4 % Low 20.0 - 45.0 [facility] Comment on above: Performed By: #### 2 16563 #### [facility],[address] [place] [address] MANUAL DIFF N/A Normal [facility] Comment on above: Performed By: #### 2 03311 #### [facility],[address] [place] [address] MCH (RBC) [Entitic mass] 31 pg Normal 27 - 33 [facility] Comment on above: Performed By: #### 2 53150 #### [facility],[address] [place] [address] MCHC 34 X10 3 Normal 32 - 36 [facility] Comment on above: Performed By: #### 2 34603 #### [facility],[address] [place] [address] MCV (RBC) [Entitic vol] 91 fL Normal 80 - 99 [facility] Comment on above: Performed By: #### 2 59129 #### [facility],[address] [place] [address] [place] # 0.90 x10EE3/UL Normal 0.20 - 1.00 [facility] Comment on above: Performed By: #### 2 01384 #### [facility],[address] [place] [address] MONOS % 12.8 % High 0.0 - 10.0 [facility] Comment on above: Performed By: #### 2 40780 #### [facility],[address] [place], [place] [id number] Morphology Ko (Bld) [Interp] N/A Normal [facility] Comment on above: Result Comment: {CD] Performed By: #### 2 52063 #### [facility],[address] [place] [address] 13096 Neut # 6.00 x10EE3/UL Normal 1.50 - 7.10 [facility] Comment on above: Performed By: #### 2 10608 #### [facility],[address] [place] [address] 86696 Neutrophils/100 WBC (Bld) 81.5 % High 46.0 - 76.0 [facility] Comment on above: Performed By: #### 2 87630 #### [facility],[address] [place] [address] 87777 PLATELET 213 x10EE3/UL Normal 150 - 450 [facility] Comment on above: Performed By: #### 2 89932 #### [facility],[address] [place] [address] 56838 Platelet mean volume (Bld) [Entitic vol] 9.1 fL Normal 6.6 - 10.5 [facility] Comment on above: Result Comment: AUTO MATED DIFFERENTIAL Performed By: #### 2 55583 #### [facility],[address] [place] [address] 92065 RBC 4.18 x 10EE6/UL Normal 4.10 - 5.30 [facility] Comment on above: Performed By: #### 2 17437 #### [facility],[address] [place] [address] 66029 WBC 7.3 x 10EE3/UL Normal 4.5 - 10.8 [facility] Comment on above: Performed By: #### 2 37751 #### [facility],[address] [place] [address] 74081 CHEST 2 VIEWSon 06-19-2023 CHEST 2 VIEWS [place] [address] Patient: GRANT ARMSTRONG Phone#: : 2000 Age: 23 Gender: F Pt. Type: ER Account: [id number] Location: [facility] Ordering: YUDY MATTHEWS Exam Date: 06/19/2023/9:13 Family Phys: Charge Code: [id number] Physician: Wolfe Order #: [id number] Dose#: PROCEDURE: X-RAY CHEST 2 VIEWS COMPARISON: [...] Orellana MD on 06/19/2023 at 16:39 Normal [facility] CORONAVIRUS (SARS) ANTIGEN T ESTon 06-19-2023 EXTERNAL QC DONE? YES Normal [facility] Comment on above: Performed By: #### 2 12289 #### [facility],[address] [place] [address] INTERNAL CONTROL PASS Normal [facility] Comment on above: Performed By: #### 2 99290 #### [facility],[address] [place] [address] 80057 SARS ANTIGEN Negative Normal NORMAL: NEGATIVE [facility] Comment on above: Performed By: #### 2 41530 #### [facility],[address] [address] [place], [place] [id number] SEND TO ? YES [facility] Comment on above: Result Comment: SARS -CoV-2 THIS TEST IS BEING USED UNDER THE FDA EUA PROCEDURE. THIS ASSAY HAS BEEN VALIDATED AT [facility] FOR USE WITH NASAL AND NASOPHARYNGEAL [...] PUBLIC HEALTH AUTHORITIES. Performed By: #### 2 [id number] #### [address] [address] CULT STREP REFLEX ONLYon CULT STREP REFLEX ONLY CULT STREP REFLEX ONLY _REFLEX STREP SCREEN CULTURE ONLY_ 06/22/[id number] ETE [facility] Comment on above: Performed By: #### 2 [id number] #### [address] [address] INFLUENZA VIRUS RAPID A/Bon 06-19-2023 INFLUENZA VIRUS [...] CRITICAL? YES { CALLED TO LUIS BY LMOlayinka @ 0955 { READ BACK BY LUIS RA 0955 [facility] Comment on above: Performed By: #### 2 [id number] #### [facility],[address] [place] [address] RAPID STREPon 06-19-2023 S. pyogenes Ag IA Ql (Unsp spec) Rapid Strep NEG:GRP A STREP INTERNAL QC PASS EXTERNAL QC DONE? YES [facility] Comment on above: Performed By: #### 2 [id number] #### [facility],[address] [place] [address] RSVon 06-19-2023 RSV RSV NEGATIVE TEST INTENDED FOR PATIENTS UNDER 5 YEARS INTERNAL NEG QC PASS INTERNAL POS QC PASS EXTERNAL QC DONE? 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 [facility] Comment on above: The Pap smear is a s creening test designed to aid in thedetection of premalignant and malignant conditions of theuterine cervix. It is not a diagnostic procedure andshould not be used as the sole means of detecting cervicalcancer. Both false-positive and false-negative reports dooccur. Laboratory - CytologyOrdered By: Faustina Elias on 12-23-2022 Swing Frame Grinder Operator Cyto stain Nom (Cvx/Vag) [ID] Comment . [facility] Comment on above: Alvaro Ricci, Cytotec hnologist (ASCP) Laboratory - Miscellaneous t estsOrdered By: Faustina Elias on 12-23-2022 Service comment (Unsp spec) [Interp] Comment . [facility] Comment on above: This liquid based Th inPrep(R) pap test was screened withthe use of an image guided system. Service comment (Unsp spec) [Interp] . . [facility] No Panel InformationOrdered By: Faustina Elias on 12-23-2022 Human Papillomavirus Screen Comment . [facility] Comment on above: The HPV DNA reflex c rima were not met with this specimenresult therefore, no HPV testing was performed.Performed at: [address] [id number] Director: Lise Chaparro MD, Phone: [phone] Pathology report final diagnosis Narrative Comment . [facility] Comment on above: NEGATIVE FOR INTRAEP ITHELIAL LESION OR MALIGNANCY. Cervical or vagninal specime n microscopic examination by cytology stain (reported asOrdered By: Faustina Elias on 11-11-2022 Cytology report Cyto stain Doc (Cvx/Vag) Comment . [facility] Comment on above: The Pap smear is a s creening test designed to aid in thedetection of premalignant and malignant conditions of theuterine cervix. It is not a diagnostic procedure andshould not be used as the sole means of detecting cervicalcancer. Both false-positive and false-negative reports dooccur. Laboratory - CytologyOrdered By: Faustina Elias on 11-11-2022 Swing Frame Grinder Operator Cyto stain Nom (Cvx/Vag) [ID] Comment . [facility] Comment on above: Jenny garcia, Seasoner Hand (ASCP) Recommended follow-up Cyto stain Nom (Cvx/Vag) Comment . [facility] Comment on above: Suggest follow up as clinically appropriate. Laboratory - Miscellaneous t estsOrdered By: Faustina Elias on 11-11-2022 Service comment (Unsp spec) [Interp] Comment . [facility] Comment on above: This liquid based Th inPrep(R) pap test was screened withthe use of an image guided system. Service comment (Unsp spec) [Interp] . . [facility] No Panel InformationOrdered By: Faustina Elias on 11-11-2022 Human Papillomavirus Screen Comment . [facility] Comment on above: The HPV DNA reflex c rima were not met with this specimenresult therefore, no HPV testing was performed.Performed at: [address] [id number] Director: Lise Chaparro MD, Phone: [phone] Pap Smear Specimen Adequacy Comment . [facility] Comment on above: Specimen processed a nd examined but unsatisfactory for evaluation ofepithelial abnormality because of insufficient cellularity. Pathology report final diagnosis Narrative Comment . [facility] Comment on above: UNSATISFACTORY FOR E VALUATION. Absolute lymphocyte countOrd ered By: Dr. Carr on 09-23-2022 Lymphocytes Auto (Unsp spec) [#/Vol] 1.23 10*3/uL 0.83-4.51 [facility] Basophil percentageOrdered B y: Dr. Carr on 09-23-2022 Basophils/100 WBC (Bld) 0.2 % 0-1 [facility] Eosinophils/100 WBC (Bld) 1.1 % 0-5 [facility] Neutrophils (Bld) [#/Vol] 9.8 10*3/uL 2.0-7.7 [facility] Neutrophils/100 WBC (Bld) 79.2 % 47-70 [facility] WBC (Bld) [#/Vol] 12.3 10*3/uL 4.4-11.0 [facility] Blood erythrocytes count (nu mber/volume)Ordered By: Dr. Carr on 09-23-2022 RBC (Bld) [#/Vol] 4.01 10*6/uL 4.2-5.4 [facility] Blood hemoglobin measurement (mass/volume)Ordered By: Dr. Carr on 09-23-2022 Hemoglobin (Bld) [Mass/Vol] 12.9 g/dL 12.0-15.0 [facility] Blood lymphocytes/100 leukoc ytesOrdered By: Dr. Carr on 09-23-2022 Lymphocytes/100 WBC (Bld) 10.0 % 19-41 [facility] Blood monocytes/100 leukocyt esOrdered By: Dr. Carr on 09-23-2022 Monocytes/100 WBC (Bld) 8.9 % 0-10 [facility] Blood platelet mean volumeOr dered By: Dr. Carr on 09-23-2022 Platelet mean volume (Bld) [Entitic vol] 12.5 fL 6.2-12.0 [facility] Determination of erythrocyte mean corpuscular volume (MCV)Ordered By: Dr. Carr on 09-23-2022 MCV (RBC) [Entitic vol] 94.5 fL 81-99 [facility] Hematocrit Auto (Bld) [Volum e fraction]Ordered By: Dr. Carr on 09-23-2022 Hematocrit (Bld) [Volume fraction] 37.9 % 37-47 [facility] Laboratory - Hematology and Cell countsOrdered By: Dr. Carr on 09-23-2022 Erythrocyte distribution width (RBC) [Entitic vol] 43.7 fL 35.1-43.9 [facility] Erythrocyte distribution width (RBC) [Ratio] 12.5 % 11.6-14.6 [facility] Immature granulocytes/100 WBC (Bld) 0.600 % 0.0-0.9 [facility] Comment on above: IG% - Immature Granu locytes (promyelocytes, myelocytes and metamyelocytes) > 1% indicates that a LEFT SHIFT is Present. MCH (RBC) [Entitic mass] 32.2 pg 27.0-32.0 [facility] Nucleated RBC/100 WBC (Bld) [Ratio] 0 % 0-5 [facility] MCHC Auto (RBC) [Mass/Vol]Or dered By: Dr. Carr on 09-23-2022 MCHC (RBC) [Mass/Vol] 34.0 g/dL 32-36 [facility] No Panel InformationOrdered By: Dr. Jones on 09-23-2022 Vaginal Amniotic Fluid Detection Positive Negative [facility] Comment on above: Amniotic fluid prese nt indicates rupture of Membranes. RESULTS CALLED TO EUGENIA 09/23/22 0819 Harley Lopez.REPORT READ BACK BY SAME . Platelets bldOrdered By: Dr. Carr on 09-23-2022 Platelets (Bld) [#/Vol] 175 10*3/uL 150-450 [facility] Serum Treponema species anti body detectionOrdered By: Dr. Carr on 09-23-2022 Treponema sp Ab Ql (S) Non-Reactive [facility] Absolute lymphocyte countOrd ered By: Imani Sullivan on 09-21-2022 Lymphocytes Auto (Unsp spec) [#/Vol] 1.40 10*3/uL 0.83-4.51 [facility] Basophil percentageOrdered B y: Imani Sullivan on 09-21-2022 Basophils/100 WBC (Bld) 0.2 % 0-1 [facility] Bilirubin [Mass/Vol] 0.20 mg/dL 0.20-1.00 [facility] Comment on above: For patients on eltr ombopag therapy, use of Dimension [place] TBIL is not recommended. Chloride [Moles/Vol] 106 mmol/L 98-107 [facility] Eosinophils/100 WBC (Bld) 0.7 % 0-5 [facility] Glucose [Mass/Vol] 93 mg/dL 74-106 [facility] Neutrophils (Bld) [#/Vol] 9.5 10*3/uL 2.0-7.7 [facility] Neutrophils/100 WBC (Bld) 77.4 % 47-70 [facility] Potassium [Moles/Vol] 4.1 mmol/L 3.5-5.1 [facility] Protein [Mass/Vol] 6.4 g/dL 6.4-8.2 [facility] Sodium [Moles/Vol] 134 mmol/L 136-145 [facility] WBC (Bld) [#/Vol] 12.3 10*3/uL 4.4-11.0 [facility] Blood erythrocytes count (nu mber/volume)Ordered By: Imani Sullivan on 09-21-2022 RBC (Bld) [#/Vol] 3.79 10*6/uL 4.2-5.4 [facility] Blood hemoglobin measurement (mass/volume)Ordered By: Imani Sullivan on 09-21-2022 Hemoglobin (Bld) [Mass/Vol] 12.4 g/dL 12.0-15.0 [facility] Blood lymphocytes/100 leukoc ytesOrdered By: Imani Sullivan on 09-21-2022 Lymphocytes/100 WBC (Bld) 11.4 % 19-41 [facility] Blood monocytes/100 leukocyt esOrdered By: Imani Sullivan on 09-21-2022 Monocytes/100 WBC (Bld) 9.8 % 0-10 [facility] Blood platelet mean volumeOr dered By: Imani Sullivan on 09-21-2022 Platelet mean volume (Bld) [Entitic vol] 12.6 fL 6.2-12.0 [facility] Determination of erythrocyte mean corpuscular volume (MCV)Ordered By: Imani Sullivan on 09-21-2022 MCV (RBC) [Entitic vol] 96.3 fL 81-99 [facility] Hematocrit Auto (Bld) [Volum e fraction]Ordered By: Imani Sulilvan on 09-21-2022 Hematocrit (Bld) [Volume fraction] 36.5 % 37-47 [facility] Laboratory - Chemistry and C hemistry - challengeOrdered By: Imani Sullivan on 09-21-2022 ALP [Catalytic activity/Vol] 127 U/L 45-117 [facility] ALT [Catalytic activity/Vol] 29 U/L 13-56 [facility] CO2 [Moles/Vol] 23.0 mmol/L 21.0-32.0 [facility] Globulin (S) [Mass/Vol] 3.6 g/dL 2.2-4.2 [facility] Urea nitrogen/Creatinine [Mass ratio] 20.7 mg/mg 10-20 [facility] Laboratory - Chemistry and C hemistry - challengeon 09-21-2022 Glucose Ql (U) Negative [facility] Laboratory - Hematology and Cell countsOrdered By: Imani Sullivan on 09-21-2022 Erythrocyte distribution width (RBC) [Entitic vol] 43.7 fL 35.1-43.9 [facility] Erythrocyte distribution width (RBC) [Ratio] 12.5 % 11.6-14.6 [facility] Immature granulocytes/100 WBC (Bld) 0.500 % 0.0-0.9 [facility] Comment on above: IG% - Immature Granu locytes (promyelocytes, myelocytes and metamyelocytes) > 1% indicates that a LEFT SHIFT is Present. MCH (RBC) [Entitic mass] 32.7 pg 27.0-32.0 [facility] Nucleated RBC/100 WBC (Bld) [Ratio] 0 % 0-5 [facility] Laboratory - Urinalysison Protein Ql (U) 1+ [facility] MCHC Auto (RBC) [Mass/Vol]Or dered By: Imani Sullivan on 09-21-2022 MCHC (RBC) [Mass/Vol] 34.0 g/dL 32-36 [facility] No Panel InformationOrdered By: Imani Sullivan on 09-21-2022 Estimated GFR (MDRD) Amer 150 mL/min >60 [facility] Comment on above: GFR Calc Estimated GFR (MDRD) Non-Af Amer 124 mL/min >60 [facility] Comment on above: Non- GFR Calc Platelets bldOrdered By: Rosemary Sullivan on 09-21-2022 Platelets (Bld) [#/Vol] 199 10*3/uL 150-450 [facility] Serum or plasma albumin ximena urement (mass/volume)Ordered By: Imani Sullivan on 09-21-2022 Albumin [Mass/Vol] 2.8 g/dL 3.2-5.0 [facility] Serum or plasma albumin/glob ulin mass ratioOrdered By: Imani Sullivan on 09-21-2022 Albumin/Globulin [Mass ratio] 0.8 {ratio} 0.9-2.4 [facility] Serum or plasma calcium ximena urement (mass/volume)Ordered By: Imani Sullivan on 09-21-2022 Calcium [Mass/Vol] 9.1 mg/dL 8.5-10.1 [facility] Serum or plasma creatinine m easurement (mass/volume)Ordered By: Imani Sullivan on 09-21-2022 Creatinine [Mass/Vol] 0.63 mg/dL 0.55-1.02 [facility] Comment on above: The validity of the calculated GFR & GFRAA in patients over 70 years has not been determined. Clinical correlation is essential. Serum or plasma urea nitroge n measurement (mass/volume)Ordered By: Imani Sullivan on 09-21-2022 Urea nitrogen [Mass/Vol] 13 mg/dL 7-18 [facility] Thin prep Papanicolaou smear with manual screeningOrdered By: Imani Sullivan on 09-21-2022 Thin prep Papanicolaou smear with manual screening 22 U/L 15-37 [facility] Thin prep Papanicolaou smear with manual screening 5 5-15 [facility] Urine creatinine measurement (mass/volume)Ordered By: Imanicrystal Sullivan on 09-21-2022 Creatinine (U) [Mass/Vol] 273.00 mg/dL NO RANGE EST. [facility] Urine protein measurement (m ass/volume)Ordered By: Imani Sullivan on 09-21-2022 Protein (U) [Mass/Vol] 50.6 mg/dL 0.0-11.8 [facility] Urine protein/creatinine mas s ratioOrdered By: Imani Sullivan on 09-21-2022 Protein/Creatinine (U) [Mass ratio] 185 mg/g CRE 0-200 [facility] Culture, urineOrdered By: Baljit Begum on 09-17-2022 Bacteria identified Cx Nom (U) Positive [facility] Basophil percentageOrdered B y: Sharri Begum on 09-15-2022 Basophil percentage 10-25 SEEN /hpf 0-5 [facility] WBC (Bld) [#/Vol] 10.7 10*3/uL 4.4-11.0 [facility] Bilirubin Test strip Ql (U)O rdered By: Sharri Begum on 09-15-2022 Bilirubin Ql (U) Negative Negative [facility] Blood erythrocytes count (nu mber/volume)Ordered By: Sharri Begum on 09-15-2022 RBC (Bld) [#/Vol] 3.83 10*6/uL 4.2-5.4 [facility] Blood hemoglobin measurement (mass/volume)Ordered By: Sharri Begum on 09-15-2022 Hemoglobin (Bld) [Mass/Vol] 12.4 g/dL 12.0-15.0 [facility] Blood platelet mean volumeOr dered By: Sharri Begum on 09-15-2022 Platelet mean volume (Bld) [Entitic vol] 12.4 fL 6.2-12.0 [facility] Culture, urineOrdered By: Baljit Begum on 09-15-2022 Bacteria identified Cx Nom (U) Positive [facility] Determination of erythrocyte mean corpuscular volume (MCV)Ordered By: Sharri Begum on 09-15-2022 MCV (RBC) [Entitic vol] 95.6 fL 81-99 [facility] Hematocrit Auto (Bld) [Volum e fraction]Ordered By: Sharri Begum on 09-15-2022 Hematocrit (Bld) [Volume fraction] 36.6 % 37-47 [facility] Ketones Test strip Ql (U)Ord ered By: Sharri Begum on 09-15-2022 Ketones Ql (U) Negative Negative [facility] Laboratory - Chemistry and C hemistry - challengeOrdered By: Sharri Begum on 09-15-2022 ALT [Catalytic activity/Vol] 22 U/L 13-56 [facility] Laboratory - Hematology and Cell countsOrdered By: Sharri Begum on 09-15-2022 Erythrocyte distribution width (RBC) [Entitic vol] 42.9 fL 35.1-43.9 [facility] Erythrocyte distribution width (RBC) [Ratio] 12.4 % 11.6-14.6 [facility] MCH (RBC) [Entitic mass] 32.4 pg 27.0-32.0 [facility] MCHC Auto (RBC) [Mass/Vol]Or dered By: Sharri Begum on 09-15-2022 MCHC (RBC) [Mass/Vol] 33.9 g/dL 32-36 [facility] Mucus LM Ql (Urine sed)Order ed By: Sharri Begum on 09-15-2022 Mucus Ql (Urine sed) 0 SEEN /hpf [facility] Nitrite Test strip Ql (U)Ord ered By: Sharri Begum on 09-15-2022 Nitrite Ql (U) Negative Negative [facility] No Panel InformationOrdered By: Sharri Begum on 09-15-2022 Miscellaneous Test [facility] Comment on above: TEST RESULT LIMITSBi le Acids, Fractionated LCMS Ursodeoxycholic Acids <0.10 umol/L Reference Range: All Ages: <1.9 Cholic Acids 0.30 umol/L Reference Range: All Ages: <2.2 Chenodeoxycholic Acids 0.60 umol/L Reference Range: All Ages: <5.8 Deoxycholic Acids 1.1 umol/L Reference Range: All Ages: <3.3 Total Bile Acids 2.0 umol/LThis test was developed and its performance characteristicsdetermined by [employer]. It has not been cleared or approvedby the Food and Drug Administration.Reference Range:All Ages: <9.2 TESTING PERFORMED AT [facility]. ORIGINAL REPORT ON FILE IN LAB CONTAINS ADDITIONAL TEST SITE INFORMATION. Estimated Creatinine Clearance Calc 108.36 ml/min [facility] Estimated GFR (MDRD) Amer 164 mL/min >60 [facility] Comment on above: GFR Calc Estimated GFR (MDRD) Non-Af Amer 136 mL/min >60 [facility] Comment on above: Non- GFR Calc Platelets bldOrdered By: Luis Begum on 09-15-2022 Platelets (Bld) [#/Vol] 194 10*3/uL 150-450 [facility] Protein Test strip Ql (U)Ord ered By: Sharri Begum on 09-15-2022 Protein Ql (U) 15 mg/dl Negative [facility] Serum or plasma creatinine m easurement (mass/volume)Ordered By: Sharri Begum on 09-15-2022 Creatinine [Mass/Vol] 0.58 mg/dL 0.55-1.02 [facility] Comment on above: The validity of the calculated GFR & GFRAA in patients over 70 years has not been determined. Clinical correlation is essential. Serum or plasma uric acid me asurement (mass/volume)Ordered By: Sharri Begum on 09-15-2022 Urate [Mass/Vol] 6.3 mg/dL 2.6-6.0 [facility] Comment on above: The drugs N-Acetylcy steine and Metamizole may falsely depress this assay. Squamous epithelial cells de tection in urine sediment by light microscopyOrdered By: Sharri Begum on 09-15-2022 Epithelial cells.squamous LM Ql (Urine sed) 10-25 SEEN /hpf 5-10 [facility] Thin prep Papanicolaou smear with manual screeningOrdered By: Sharri Begum on 09-15-2022 Thin prep Papanicolaou smear with manual screening 15 U/L 15-37 [facility] Urine blood detectionOrdered By: Sharri Begum on 09-15-2022 RBC Ql (U) Negative Negative [facility] RBC Ql (U) 0 SEEN /hpf 0-5 [facility] Urine clarityOrdered By: Luis Begum on 09-15-2022 Clarity (U) Sl. Cloudy Clear [facility] Urine color determinationOrd ered By: Sharri Begum on 09-15-2022 Color (U) Yellow Yellow [facility] Urine creatinine measurement (mass/volume)Ordered By: Sharri Begum on 09-15-2022 Creatinine (U) [Mass/Vol] 70.30 mg/dL NO RANGE EST. [facility] Urine glucose detectionOrder ed By: Sharri Begum on 09-15-2022 Glucose Ql (U) Normal mg/dl Normal [facility] Urine leukocyte esterase det ection by dipstickOrdered By: Sharri Begum on 09-15-2022 Leukocyte esterase Test strip Ql (U) 500 /ul Negative [facility] Urine pHOrdered By: Sharri enriquez on 09-15-2022 pH (U) 6.0 [pH] 5.0 - 8.0 [facility] Urine protein measurement (m ass/volume)Ordered By: Sharri Begum on 09-15-2022 Protein (U) [Mass/Vol] 17.2 mg/dL 0.0-11.8 [facility] Urine protein/creatinine mas s ratioOrdered By: Sharri Begum on 09-15-2022 Protein/Creatinine (U) [Mass ratio] 245 mg/g CRE 0-200 [facility] Urine sediment bacteria coun t by microscopy (number/high power field)Ordered By: Sharri Begum on 09-15-2022 Bacteria LM.HPF (Urine sed) [#/Area] 1 /[HPF] None Seen [facility] Urine specific gravity measu rementOrdered By: Sharri Begum on 09-15-2022 Specific gravity (U) [Rel density] 1.015 1.002-1.030 [facility] Urobilinogen Auto test strip Ql (U)Ordered By: Sharri Begum on 09-15-2022 Urobilinogen Ql (U) Normal mg/dl Normal [facility] Basophil percentageOrdered B y: Dr. Carr on 09-14-2022 WBC (Bld) [#/Vol] 9.7 10*3/uL 4.4-11.0 [facility] Blood erythrocytes count (nu mber/volume)Ordered By: Dr. Carr on 09-14-2022 RBC (Bld) [#/Vol] 3.86 10*6/uL 4.2-5.4 [facility] Blood hemoglobin measurement (mass/volume)Ordered By: Dr. Carr on 09-14-2022 Hemoglobin (Bld) [Mass/Vol] 12.5 g/dL 12.0-15.0 [facility] Blood platelet mean volumeOr dered By: Dr. Carr on 09-14-2022 Platelet mean volume (Bld) [Entitic vol] 11.9 fL 6.2-12.0 [facility] Determination of erythrocyte mean corpuscular volume (MCV)Ordered By: Dr. Carr on 09-14-2022 MCV (RBC) [Entitic vol] 93.5 fL 81-99 [facility] Hematocrit Auto (Bld) [Volum e fraction]Ordered By: Dr. Carr on 09-14-2022 Hematocrit (Bld) [Volume fraction] 36.1 % 37-47 [facility] Laboratory - Chemistry and C hemistry - challengeOrdered By: Dr. Carr on 09-14-2022 ALT [Catalytic activity/Vol] 21 U/L 13-56 [facility] Laboratory - Chemistry and C hemistry - challengeon 09-14-2022 Glucose Ql (U) Negative [facility] Laboratory - Hematology and Cell countsOrdered By: Dr. Carr on 09-14-2022 Erythrocyte distribution width (RBC) [Entitic vol] 42.6 fL 35.1-43.9 [facility] Erythrocyte distribution width (RBC) [Ratio] 12.5 % 11.6-14.6 [facility] MCH (RBC) [Entitic mass] 32.4 pg 27.0-32.0 [facility] Laboratory - Urinalysison Protein Ql (U) [facility] ([facility]) [Mass/Vol]Or dered By: Dr. Carr on 09-14-2022 MCHC (RBC) [Mass/Vol] 34.6 g/dL 32-36 [facility] No Panel InformationOrdered By: Dr. Carr on 09-14-2022 Estimated Creatinine Clearance Calc 146.16 ml/min [facility] Estimated GFR (MDRD) Amer 233 mL/min >60 [facility] Comment on above: GFR Calc Estimated GFR (MDRD) Non-Af Amer 193 mL/min >60 [facility] Comment on above: Non- GFR Calc Platelets bldOrdered By: Dr. Carr on 09-14-2022 Platelets (Bld) [#/Vol] 190 10*3/uL 150-450 [facility] Serum or plasma creatinine m easurement (mass/volume)Ordered By: Dr. Carr on 09-14-2022 Creatinine [Mass/Vol] 0.43 mg/dL 0.55-1.02 [facility] Comment on above: The validity of the calculated GFR & GFRAA in patients over 70 years has not been determined. Clinical correlation is essential. Serum or plasma uric acid me asurement (mass/volume)Ordered By: Dr. Carr on 09-14-2022 Urate [Mass/Vol] 6.0 mg/dL 2.6-6.0 [facility] Comment on above: The drugs N-Acetylcy steine and Metamizole may falsely depress this assay. Thin prep Papanicolaou smear with manual screeningOrdered By: Dr. Carr on 09-14-2022 Thin prep Papanicolaou smear with manual screening 12 U/L 15-37 [facility] Urine creatinine measurement (mass/volume)Ordered By: Dr. Carr on 09-14-2022 Creatinine (U) [Mass/Vol] 105.00 mg/dL NO RANGE EST. [facility] Urine protein measurement (m ass/volume)Ordered By: Dr. Carr on 09-14-2022 Protein (U) [Mass/Vol] 20.9 mg/dL 0.0-11.8 [facility] Urine protein/creatinine mas s ratioOrdered By: Dr. Carr on 09-14-2022 Protein/Creatinine (U) [Mass ratio] 199 mg/g CRE 0-200 [facility] No Panel InformationOrdered By: Dr. Carr on 09-13-2022 Group B Streptococcus Culture Group B Beta Streptococcus is not isolated. [facility] No Panel InformationOrdered By: Karyna Carr on 09-10-2022 Group B Streptococcus Culture Group B Beta Streptococcus is not isolated. [facility] Laboratory - Chemistry and C hemistry - challengeon 08-25-2022 Glucose Ql (U) Negative [facility] Laboratory - Urinalysison Protein Ql (U) Negative [facility] Laboratory - Chemistry and C hemistry - challengeon 08-12-2022 Glucose Ql (U) Negative [facility] Laboratory - Urinalysison Protein Ql (U) Negative [facility] Laboratory - Chemistry and C hemistry - challengeon 07-30-2022 Glucose Ql (U) Negative [facility] Laboratory - Urinalysison Protein Ql (U) Negative [facility] Laboratory - Chemistry and C hemistry - challengeon 07-16-2022 Glucose Ql (U) Negative [facility] Laboratory - Urinalysison Protein Ql (U) Negative [facility] Laboratory - Chemistry and C hemistry - challengeon 07-06-2022 Glucose Ql (U) Negative [facility] Laboratory - Urinalysison Protein Ql (U) Negative [facility] Culture, urineOrdered By: Dr Charity Carr on 07-05-2022 Bacteria identified Cx Nom (U) Gardnerella vaginalis [facility] Bilirubin Test strip Ql (U)O rdered By: Dr. Carr on 07-01-2022 Bilirubin Ql (U) Negative Negative [facility] Ketones Test strip Ql (U)Ord ered By: Dr. Carr on 07-01-2022 Ketones Ql (U) Negative Negative [facility] Nitrite Test strip Ql (U)Ord ered By: Dr. Carr on 07-01-2022 Nitrite Ql (U) Negative Negative [facility] Protein Test strip Ql (U)Ord ered By: Dr. Carr on 07-01-2022 Protein Ql (U) Negative Negative [facility] Urine blood detectionOrdered By: Dr. Carr on 07-01-2022 RBC Ql (U) Negative Negative [facility] Urine clarityOrdered By: Dr. Carr on 07-01-2022 Clarity (U) Clear Clear [facility] Urine color determinationOrd ered By: Dr. Carr on 07-01-2022 Color (U) Yellow Yellow [facility] Urine glucose detectionOrder ed By: Dr. Carr on 07-01-2022 Glucose Ql (U) Normal mg/dl Normal [facility] Urine leukocyte esterase det ection by dipstickOrdered By: Dr. Carr on 07-01-2022 Leukocyte esterase Test strip Ql (U) 500 /ul Negative [facility] Urine pHOrdered By: Dr. Stan perez on 07-01-2022 pH (U) 7.0 [pH] 5.0 - 8.0 [facility] Urine specific gravity measu rementOrdered By: Dr. Carr on 07-01-2022 Specific gravity (U) [Rel density] 1.005 1.002-1.030 [facility] Urobilinogen Auto test strip Ql (U)Ordered By: Dr. Carr on 07-01-2022 Urobilinogen Ql (U) Normal mg/dl Normal [facility] Absolute lymphocyte countOrd ered By: Dr. Jones on 06-22-2022 Lymphocytes Auto (Unsp spec) [#/Vol] 1.11 10*3/uL 0.83-4.51 [facility] Basophil percentageOrdered B y: Dr. Jones on 06-22-2022 Basophils/100 WBC (Bld) 0.2 % 0-1 [facility] Eosinophils/100 WBC (Bld) 1.2 % 0-5 [facility] Neutrophils (Bld) [#/Vol] 7.4 10*3/uL 2.0-7.7 [facility] Neutrophils/100 WBC (Bld) 78.7 % 47-70 [facility] WBC (Bld) [#/Vol] 9.4 10*3/uL 4.4-11.0 [facility] Blood erythrocytes count (nu mber/volume)Ordered By: Dr. Jones on 06-22-2022 RBC (Bld) [#/Vol] 3.97 10*6/uL 4.2-5.4 [facility] Blood hemoglobin measurement (mass/volume)Ordered By: Dr. Jones on 06-22-2022 Hemoglobin (Bld) [Mass/Vol] 12.5 g/dL 12.0-15.0 [facility] Blood lymphocytes/100 leukoc ytesOrdered By: Dr. Jones on 06-22-2022 Lymphocytes/100 WBC (Bld) 11.8 % 19-41 [facility] Blood monocytes/100 leukocyt esOrdered By: Dr. Jones on 06-22-2022 Monocytes/100 WBC (Bld) 7.5 % 0-10 [facility] Blood platelet mean volumeOr dered By: Dr. Jones on 06-22-2022 Platelet mean volume (Bld) [Entitic vol] 10.5 fL 6.2-12.0 [facility] Determination of erythrocyte mean corpuscular volume (MCV)Ordered By: Dr. Jones on 06-22-2022 MCV (RBC) [Entitic vol] 95.7 fL 81-99 [facility] Gestational diabetes screen 1-hour screen with 50g oral glucose loadOrdered By: Dr. Jones on 06-22-2022 Glucose 1 Hr post 50 g glucose PO [Mass/Vol] 115 mg/dL 70-140 [facility] HIV 1 and HIV-2 antibody ass ay with HIV-1 p24 antigen detectionOrdered By: Dr. Jones on 06-22-2022 HIV 1+2 Ab+HIV1 p24 Ag IA Ql Non-Reactive Nonreactive [facility] Hematocrit Auto (Bld) [Volum e fraction]Ordered By: Dr. Jones on 06-22-2022 Hematocrit (Bld) [Volume fraction] 38.0 % 37-47 [facility] Laboratory - Chemistry and C hemistry - challengeon 06-22-2022 Glucose Ql (U) Negative [facility] Laboratory - Hematology and Cell countsOrdered By: Dr. Jones on 06-22-2022 Erythrocyte distribution width (RBC) [Entitic vol] 43.9 fL 35.1-43.9 [facility] Erythrocyte distribution width (RBC) [Ratio] 12.4 % 11.6-14.6 [facility] Immature granulocytes/100 WBC (Bld) 0.600 % 0.0-0.9 [facility] Comment on above: IG% - Immature Granu locytes (promyelocytes, myelocytes and metamyelocytes) > 1% indicates that a LEFT SHIFT is Present. MCH (RBC) [Entitic mass] 31.5 pg 27.0-32.0 [facility] Nucleated RBC/100 WBC (Bld) [Ratio] 0 % 0-5 [facility] Laboratory - Urinalysison Protein Ql (U) Negative [facility] MCHC Auto (RBC) [Mass/Vol]Or dered By: Dr. Jones on 06-22-2022 MCHC (RBC) [Mass/Vol] 32.9 g/dL 32-36 [facility] Platelets bldOrdered By: Dr. Jones on 06-22-2022 Platelets (Bld) [#/Vol] 274 10*3/uL 150-450 [facility] Serum Treponema species anti body detectionOrdered By: Dr. Jones on 06-22-2022 Treponema sp Ab Ql (S) Non-Reactive [facility] Laboratory - Chemistry and C hemistry - challengeon 05-27-2022 Glucose Ql (U) Negative [facility] Laboratory - Urinalysison Protein Ql (U) Negative [facility] Laboratory - Chemistry and C hemistry - challengeon 04-28-2022 Glucose Ql (U) Negative [facility] Laboratory - Urinalysison Protein Ql (U) Negative [facility] Laboratory - Chemistry and C hemistry - challengeon 03-29-2022 Glucose Ql (U) Negative [facility] Laboratory - Urinalysison Protein Ql (U) Negative [facility] Culture, urineOrdered By: Dr Charity Jones on 03-13-2022 Bacteria identified Cx Nom (U) Positive [facility] Absolute lymphocyte countOrd ered By: Dr. Jones on 03-11-2022 Lymphocytes Auto (Unsp spec) [#/Vol] 1.32 10*3/uL 0.83-4.51 [facility] Basophil percentageOrdered B y: Dr. Jones on 03-11-2022 Basophils/100 WBC (Bld) 0.2 % 0-1 [facility] Eosinophils/100 WBC (Bld) 1.4 % 0-5 [facility] Neutrophils (Bld) [#/Vol] 7.0 10*3/uL 2.0-7.7 [facility] Neutrophils/100 WBC (Bld) 75.4 % 47-70 [facility] WBC (Bld) [#/Vol] 9.3 10*3/uL 4.4-11.0 [facility] Blood erythrocytes count (nu mber/volume)Ordered By: Dr. Jones on 03-11-2022 RBC (Bld) [#/Vol] 4.16 10*6/uL 4.2-5.4 [facility] Blood hemoglobin measurement (mass/volume)Ordered By: Dr. Jones on 03-11-2022 Hemoglobin (Bld) [Mass/Vol] 13.4 g/dL 12.0-15.0 [facility] Blood lymphocytes/100 leukoc ytesOrdered By: Dr. Jones on 03-11-2022 Lymphocytes/100 WBC (Bld) 14.2 % 19-41 [facility] Blood monocytes/100 leukocyt esOrdered By: Dr. Jones on 03-11-2022 Monocytes/100 WBC (Bld) 8.6 % 0-10 [facility] Blood platelet mean volumeOr dered By: Dr. Jones on 03-11-2022 Platelet mean volume (Bld) [Entitic vol] 10.7 fL 6.2-12.0 [facility] Cervical or vagninal specime n microscopic examination by cytology stain (reported asOrdered By: Dr. Jones on 03-11-2022 Cytology report Cyto stain Doc (Cvx/Vag) Comment . [facility] Comment on above: The Pap smear is a s creening test designed to aid in thedetection of premalignant and malignant conditions of theuterine cervix. It is not a diagnostic procedure andshould not be used as the sole means of detecting cervicalcancer. Both false-positive and false-negative reports dooccur. Chlamydia trachomatis rRNA d etection by probe and target amplification methodOrdered By: Dr. Jones on 03-11-2022 C. trachomatis rRNA SHANITA+probe Ql (Unsp spec) Negative Negative [facility] Determination of erythrocyte mean corpuscular volume (MCV)Ordered By: Dr. Jones on 03-11-2022 MCV (RBC) [Entitic vol] 91.6 fL 81-99 [facility] HIV 1 and HIV-2 antibody ass ay with HIV-1 p24 antigen detectionOrdered By: Dr. Jones on 03-11-2022 HIV 1+2 Ab+HIV1 p24 Ag IA Ql Non-Reactive Nonreactive [facility] Hematocrit Auto (Bld) [Volum e fraction]Ordered By: Dr. Jones on 03-11-2022 Hematocrit (Bld) [Volume fraction] 38.1 % 37-47 [facility] Laboratory - CytologyOrdered By: Dr. Jones on 03-11-2022 Swing Frame Grinder Operator Cyto stain Nom (Cvx/Vag) [ID] Comment . [facility] Comment on above: Fariba Santos Cyto technologist Pathologist Cyto stain Nom (Cvx/Vag) [ID] Comment . [facility] Comment on above: Lise Chaparro MD, Pathologist Recommended follow-up Cyto stain Nom (Cvx/Vag) Comment . [facility] Comment on above: Suggest follow up as clinically appropriate. Laboratory - Drug toxicology Ordered By: Dr. Jones on 03-11-2022 Amphetamines Ql (U) Negative <1000 ng/mL [facility] Benzodiazepines Ql (U) Negative < 200 ng/mL [facility] Cannabinoids Screen Ql (U) Negative < 50 ng/mL [facility] Cocaine Ql (U) Negative < 300 ng/mL [facility] Opiates Ql (U) Negative < 300 ng/mL [facility] Laboratory - Hematology and Cell countsOrdered By: Dr. Jones on 03-11-2022 Erythrocyte distribution width (RBC) [Entitic vol] 40.9 fL 35.1-43.9 [facility] Erythrocyte distribution width (RBC) [Ratio] 12.2 % 11.6-14.6 [facility] Immature granulocytes/100 WBC (Bld) 0.200 % 0.0-0.9 [facility] Comment on above: IG% - Immature Granu locytes (promyelocytes, myelocytes and metamyelocytes) > 1% indicates that a LEFT SHIFT is Present. MCH (RBC) [Entitic mass] 32.2 pg 27.0-32.0 [facility] Nucleated RBC/100 WBC (Bld) [Ratio] 0 % 0-5 [facility] Laboratory - Microbiology an d Antimicrobial susceptibilityOrdered By: Dr. Jones on 03-11-2022 N. gonorrhoeae DNA SHANITA+probe Ql (Unsp spec) Negative Negative [facility] Comment on above: Performed at: [address] [id number] Director: Lise Chaparro MD, Phone: [phone] Laboratory - Miscellaneous t estsOrdered By: Dr. Jones on 03-11-2022 Service comment (Unsp spec) [Interp] Comment . [facility] Comment on above: This liquid based Th inPrep(R) pap test was screened withthe use of an image guided system. Service comment (Unsp spec) [Interp] . . [facility] MCHC Auto (RBC) [Mass/Vol]Or dered By: Dr. Jones on 03-11-2022 MCHC (RBC) [Mass/Vol] 35.2 g/dL 32-36 [facility] No Panel InformationOrdered By: Dr. Jones on 03-11-2022 Human Papillomavirus Screen Comment . [facility] Comment on above: See below for HPV te sting results. MDMA (Ecstasy) Screen Negative < 500 ng/mL [facility] Pathology report final diagnosis Narrative Comment . [facility] Comment on above: EPITHELIAL CELL ABNO RMALITY.ATYPICAL SQUAMOUS CELLS OF UNDETERMINED SIGNIFICANCE (ASC-US). R87.610 Urine Barbiturates Screen Negative < 200 ng/mL [facility] Urine Drug Screen Comment [facility] Comment on above: CONFIRMATORY TESTING FOR ALL POSITIVE URINE DRUG SCREENRESULTS WILL ONLY BE SENT OUT UPON PHYSICIAN ORDER. VISTA Urine Drug Screen methods provide only preliminaryanalytical test results. A more specific alternate chemicalmethod must be used in order to obtain a confirmedanalytical result. Gas chromatography/mass spectrometery(GC/MS) is the preferred confirmatory method. Clinicalconsideration and professional judgement should be appliedto any drug of abuse test result, particularly whenpreliminary positive results are used. URINE TCA TESTING MUST BE ORDERED SEPARATELY. USE TESTMNEMONIC: [facility] Urine Methadone Screen Negative < 300 ng/mL [facility] Hepatitis B Surface Antigen Non-Reactive Nonreactive [facility] Hepatitis C Antibody Non-Reactive Nonreactive [facility] Comment on above: Non Reactive: < 0.8 Equivocal: >/= 0.8 to < 1.0 Reactive: >/= 1.0The CDC recommends that a reactive/equivocal HCV antibody result be followed up by the HCV Nucleic Acid Amplificationtest ([id number]) Miscellaneous Test Comment MAILED SPECIMEN [facility] Rubella IgG Antibody Reactive Nonreactive [facility] Comment on above: Antibody Results Int erpretation of Immune Status Non Reactive Presumed Non-Immune Equivocal Equivocal Reactive Presumed Immune Platelets bldOrdered By: Dr. Jones on 03-11-2022 Platelets (Bld) [#/Vol] 334 10*3/uL 150-450 [facility] Serum Treponema species anti body detectionOrdered By: Dr. Jones on 03-11-2022 Treponema sp Ab Ql (S) Non-Reactive [facility] Urine phencyclidine (PCP) de tectionOrdered By: Dr. Jones on 03-11-2022 Phencyclidine Ql (U) Negative < 25 ng/mL [facility] Culture, urine Bacteria identified Cx Nom (U) Positive [facility] Work Phone: Vital Signs Date Time Vital Sign Value Performing Clinician Faci lity 01-16-2025 13:45-0400 Body height 154.94 cm No Primary Care Physician [facility] 01-16-2025 13:45-0400 Body mass index (BMI) [Ratio] 39.6 kg/m2 No Primary Care Physician [facility] 01-16-2025 13:45-0400 Body weight 95.25 kg No Primary Care Physician [facility] 01-16-2025 13:45-0400 Diastolic blood pressure 90 mm[Hg] No Primary Care Physician [facility] 01-16-2025 13:45-0400 Systolic blood pressure 125 mm[Hg] No Primary Care Physician [facility] 01-07-2025 14:27-0400 Body height 154.94 cm No Primary Care Physician [facility] 01-07-2025 14:27-0400 Body mass index (BMI) [Ratio] 38.3 kg/m2 No Primary Care Physician [facility] 01-07-2025 14:27-0400 Body weight 92.13 kg No Primary Care Physician [facility] 01-07-2025 14:27-0400 Diastolic blood pressure 81 mm[Hg] No Primary Care Physician [facility] 01-07-2025 14:27-0400 Systolic blood pressure 112 mm[Hg] No Primary Care Physician [facility] 12-25-2024 13:55-0400 Body height 154.94 cm No Primary Care Physician [facility] 12-25-2024 13:55-0400 Body mass index (BMI) [Ratio] 37.4 kg/m2 No Primary Care Physician [facility] 12-25-2024 13:55-0400 Body weight 89.81 kg No Primary Care Physician [facility] 12-25-2024 13:55-0400 Diastolic blood pressure 83 mm[Hg] No Primary Care Physician [facility] 12-25-2024 13:55-0400 Systolic blood pressure 120 mm[Hg] No Primary Care Physician [facility] 12-11-2024 13:38-0400 Body height 154.94 cm No Primary Care Physician [facility] 12-11-2024 13:38-0400 Body mass index (BMI) [Ratio] 36.3 kg/m2 No Primary Care Physician [facility] 12-11-2024 13:38-0400 Body weight 87.2 kg No Primary Care Physician [facility] 12-11-2024 13:38-0400 Diastolic blood pressure 86 mm[Hg] No Primary Care Physician [facility] 12-11-2024 13:38-0400 Systolic blood pressure 118 mm[Hg] No Primary Care Physician [facility] 12-05-2024 22:39-0400 Heart rate 81 /min No Primary Care Physician [facility] 12-05-2024 22:39-0400 SaO2% (BldA) [Mass fraction] 98 % No Primary Care Physician [facility] 12-05-2024 22:00-0400 Body height 154.94 cm No Primary Care Physician [facility] 12-05-2024 22:00-0400 Body mass index (BMI) [Ratio] 36.1 kg/m2 No Primary Care Physician [facility] 12-05-2024 22:00-0400 Body weight 86.8 kg No Primary Care Physician [facility] 11-27-2024 13:20-0400 Body height 154.94 cm No Primary Care Physician [facility] 11-27-2024 13:20-0400 Body mass index (BMI) [Ratio] 36.2 kg/m2 No Primary Care Physician [facility] 11-27-2024 13:20-0400 Body weight 87.08 kg No Primary Care Physician [facility] 11-27-2024 13:20-0400 Diastolic blood pressure 72 mm[Hg] No Primary Care Physician [facility] 11-27-2024 13:20-0400 Systolic blood pressure 109 mm[Hg] No Primary Care Physician [facility] 11-13-2024 13:07-0400 Body height 154.94 cm No Primary Care Physician [facility] 11-13-2024 13:07-0400 Body mass index (BMI) [Ratio] 34.9 kg/m2 No Primary Care Physician [facility] 11-13-2024 13:07-0400 Body weight 84.02 kg No Primary Care Physician [facility] 11-13-2024 13:07-0400 Diastolic blood pressure 78 mm[Hg] No Primary Care Physician [facility] 11-13-2024 13:07-0400 Systolic blood pressure 112 mm[Hg] No Primary Care Physician [facility] 10-30-2024 13:25-0400 Body height 154.94 cm No Primary Care Physician [facility] 10-30-2024 13:25-0400 Body mass index (BMI) [Ratio] 34.6 kg/m2 No Primary Care Physician [facility] 10-30-2024 13:25-0400 Body weight 83.06 kg No Primary Care Physician [facility] 10-30-2024 13:25-0400 Diastolic blood pressure 78 mm[Hg] No Primary Care Physician [facility] 10-30-2024 13:25-0400 Systolic blood pressure 113 mm[Hg] No Primary Care Physician [facility] 10-18-2024 11:39-0400 Body height 154.94 cm No Primary Care Physician [facility] 10-18-2024 11:39-0400 Body mass index (BMI) [Ratio] 34.1 kg/m2 No Primary Care Physician [facility] 10-18-2024 11:39-0400 Body weight 81.87 kg No Primary Care Physician [facility] 10-18-2024 11:39-0400 Diastolic blood pressure 81 mm[Hg] No Primary Care Physician [facility] 10-18-2024 11:39-0400 Systolic blood pressure 118 mm[Hg] No Primary Care Physician [facility] 10-16-2024 16:51-0400 Body temperature 97.4 [degF] No Primary Care Physician [facility] 10-16-2024 16:51-0400 Diastolic blood pressure 78 mm[Hg] No Primary Care Physician [facility] 10-16-2024 16:51-0400 Heart rate 104 /min No Primary Care Physician [facility] 10-16-2024 16:51-0400 Respiratory rate 16 /min No Primary Care Physician [facility] 10-16-2024 16:51-0400 SaO2% (BldA) [Mass fraction] 100 % No Primary Care Physician [facility] 10-16-2024 16:51-0400 Systolic blood pressure 113 mm[Hg] No Primary Care Physician [facility] 10-16-2024 14:40-0400 Body mass index (BMI) [Ratio] 33.9 kg/m2 No Primary Care Physician [facility] 10-16-2024 14:40-0400 Body weight 81.46 kg No Primary Care Physician [facility] 10-02-2024 08:33-0400 Body mass index (BMI) [Ratio] 34.2 kg/m2 No Primary Care Physician [facility] 10-02-2024 08:33-0400 Body weight 79.43 kg No Primary Care Physician [facility] 10-02-2024 08:33-0400 Diastolic blood pressure 72 mm[Hg] No Primary Care Physician [facility] 10-02-2024 08:33-0400 Systolic blood pressure 110 mm[Hg] No Primary Care Physician [facility] 09-04-2024 15:35-0400 Body mass index (BMI) [Ratio] 33.5 kg/m2 No Primary Care Physician [facility] 09-04-2024 15:35-0400 Body weight 77.79 kg No Primary Care Physician [facility] 09-04-2024 15:35-0400 Diastolic blood pressure 79 mm[Hg] No Primary Care Physician [facility] 09-04-2024 15:35-0400 Systolic blood pressure 113 mm[Hg] No Primary Care Physician [facility] 08-07-2024 14:08-0500 Body mass index (BMI) [Ratio] 32.8 kg/m2 No Primary Care Physician [facility] 08-07-2024 14:08-0500 Body weight 76.37 kg No Primary Care Physician [facility] 08-07-2024 14:08-0500 Diastolic blood pressure 82 mm[Hg] No Primary Care Physician [facility] [facility] 08-07-2024 14:08-0500 Systolic blood pressure 123 mm[Hg] No Primary Care Physician [facility] 07-06-2024 13:08-0500 Body mass index (BMI) [Ratio] 33.4 kg/m2 No Primary Care Physician [facility] 07-06-2024 13:08-0500 Body weight 77.56 kg No Primary Care Physician [facility] 07-06-2024 13:08-0500 Diastolic blood pressure 78 mm[Hg] No Primary Care Physician [facility] 07-06-2024 13:08-0500 Systolic blood pressure 115 mm[Hg] No Primary Care Physician [facility] 04-21-2023 10:13-0500 Body height 152.4 cm No Primary Care Physician [facility] 04-21-2023 10:06-0500 Body mass index (BMI) [Ratio] 31.2 kg/m2 No Primary Care Physician [facility] 04-21-2023 10:06-0500 Body weight 72.63 kg No Primary Care Physician [facility] 04-21-2023 10:06-0500 Diastolic blood pressure 72 mm[Hg] No Primary Care Physician [facility] 04-21-2023 10:06-0500 Systolic blood pressure 118 mm[Hg] No Primary Care Physician [facility] 03-01-2023 11:11-0400 Body mass index (BMI) [Ratio] 30.9 kg/m2 No Primary Care Physician [facility] 03-01-2023 11:11-0400 Body temperature 98.7 [degF] No Primary Care Physician [facility] 03-01-2023 11:11-0400 Body weight 71.89 kg No Primary Care Physician [facility] 03-01-2023 11:11-0400 Diastolic blood pressure 75 mm[Hg] No Primary Care Physician [facility] 03-01-2023 11:11-0400 Heart rate 98 /min No Primary Care Physician [facility] 03-01-2023 11:11-0400 SaO2% (BldA) [Mass fraction] 100 % No Primary Care Physician [facility] 03-01-2023 11:11-0400 Systolic blood pressure 112 mm[Hg] No Primary Care Physician [facility] 01-20-2023 14:38-0400 Body mass index (BMI) [Ratio] 30.2 kg/m2 No Primary Care Physician [facility] 01-20-2023 14:38-0400 Body temperature 98.8 [degF] No Primary Care Physician [facility] 01-20-2023 14:38-0400 Body weight 70.3 kg No Primary Care Physician [facility] 01-20-2023 14:38-0400 Diastolic blood pressure 78 mm[Hg] No Primary Care Physician [facility] 01-20-2023 14:38-0400 Heart rate 104 /min No Primary Care Physician [facility] 01-20-2023 14:38-0400 Systolic blood pressure 107 mm[Hg] No Primary Care Physician [facility] 11-11-2022 11:05-0400 Diastolic blood pressure 75 mm[Hg] No Primary Care Physician [facility] 11-11-2022 11:05-0400 Systolic blood pressure 108 mm[Hg] No Primary Care Physician [facility] 11-11-2022 10:52-0400 Body height 152.4 cm No Primary Care Physician [facility] 11-11-2022 10:52-0400 Body mass index (BMI) [Ratio] 30.3 kg/m2 No Primary Care Physician [facility] 11-11-2022 10:52-0400 Body weight 70.47 kg No Primary Care Physician [facility] 11-05-2022 11:10-0400 Body mass index (BMI) [Ratio] 30.4 kg/m2 No Primary Care Physician [facility] 11-05-2022 11:10-0400 Body weight 70.76 kg No Primary Care Physician [facility] 11-05-2022 11:10-0400 Diastolic blood pressure 80 mm[Hg] No Primary Care Physician [facility] 11-05-2022 11:10-0400 Systolic blood pressure 119 mm[Hg] No Primary Care Physician [facility] 09-25-2022 14:07-0400 Body temperature 98.1 [degF] No Primary Care Physician [facility] 09-25-2022 14:07-0400 Diastolic blood pressure 82 mm[Hg] No Primary Care Physician [facility] 09-25-2022 14:07-0400 Heart rate 90 /min No Primary Care Physician [facility] 09-25-2022 14:07-0400 Respiratory rate 16 /min No Primary Care Physician [facility] 09-25-2022 14:07-0400 SaO2% (BldA) [Mass fraction] 98 % No Primary Care Physician [facility] 09-25-2022 14:07-0400 Systolic blood pressure 136 mm[Hg] No Primary Care Physician [facility] 09-23-2022 07:58-0400 Body height 152.4 cm No Primary Care Physician [facility] 09-23-2022 07:58-0400 Body mass index (BMI) [Ratio] 37 kg/m2 No Primary Care Physician [facility] 09-23-2022 07:58-0400 Body weight 86.18 kg No Primary Care Physician [facility] 09-23-2022 00:14-0400 Body temperature 98.8 [degF] No Primary Care Physician [facility] 09-23-2022 00:14-0400 Diastolic blood pressure 82 mm[Hg] No Primary Care Physician [facility] 09-23-2022 00:14-0400 Heart rate 84 /min No Primary Care Physician [facility] 09-23-2022 00:14-0400 Systolic blood pressure 116 mm[Hg] No Primary Care Physician [facility] 09-23-2022 00:13-0400 SaO2% (BldA) [Mass fraction] 97 % No Primary Care Physician [facility] 09-23-2022 00:07-0400 Body height 152.4 cm No Primary Care Physician [facility] 09-23-2022 00:07-0400 Body mass index (BMI) [Ratio] 37.8 kg/m2 No Primary Care Physician [facility] 09-23-2022 00:07-0400 Body weight 87.7 kg No Primary Care Physician [facility] 09-21-2022 15:21-0400 Body mass index (BMI) [Ratio] 37.1 kg/m2 No Primary Care Physician [facility] 09-21-2022 15:21-0400 Body weight 86.23 kg No Primary Care Physician [facility] 09-21-2022 15:21-0400 Diastolic blood pressure 83 mm[Hg] No Primary Care Physician [facility] 09-21-2022 15:21-0400 Systolic blood pressure 118 mm[Hg] No Primary Care Physician [facility] 09-15-2022 15:59-0400 Body temperature 99.6 [degF] No Primary Care Physician [facility] 09-15-2022 15:53-0400 Diastolic blood pressure 71 mm[Hg] No Primary Care Physician [facility] 09-15-2022 15:53-0400 Heart rate 101 /min No Primary Care Physician [facility] 09-15-2022 15:53-0400 Systolic blood pressure 113 mm[Hg] No Primary Care Physician [facility] 09-15-2022 15:24-0400 Body height 152.4 cm No Primary Care Physician [facility] 09-15-2022 15:24-0400 Body mass index (BMI) [Ratio] 36.4 kg/m2 No Primary Care Physician [facility] 09-15-2022 15:24-0400 Body weight 84.6 kg No Primary Care Physician [facility] 09-14-2022 12:53-0400 Diastolic blood pressure 85 mm[Hg] No Primary Care Physician [facility] 09-14-2022 12:53-0400 Heart rate 100 /min No Primary Care Physician [facility] 09-14-2022 12:53-0400 Systolic blood pressure 120 mm[Hg] No Primary Care Physician [facility] 09-14-2022 12:21-0400 Body temperature 98.3 [degF] No Primary Care Physician [facility] 09-14-2022 12:17-0400 Body height 152.4 cm No Primary Care Physician [facility] 09-14-2022 12:17-0400 Body mass index (BMI) [Ratio] 35.7 kg/m2 No Primary Care Physician [facility] 09-14-2022 12:17-0400 Body weight 83 kg No Primary Care Physician [facility] 09-14-2022 11:26-0400 Body mass index (BMI) [Ratio] 36 kg/m2 No Primary Care Physician [facility] 09-14-2022 11:26-0400 Body weight 83.63 kg No Primary Care Physician [facility] 09-14-2022 11:26-0400 Diastolic blood pressure 94 mm[Hg] No Primary Care Physician [facility] 09-14-2022 11:26-0400 Systolic blood pressure 132 mm[Hg] No Primary Care Physician [facility] 09-10-2022 13:29-0400 Body mass index (BMI) [Ratio] 35.7 kg/m2 No Primary Care Physician [facility] 09-10-2022 13:29-0400 Body weight 83 kg No Primary Care Physician [facility] 09-10-2022 13:29-0400 Diastolic blood pressure 84 mm[Hg] No Primary Care Physician [facility] 09-10-2022 13:29-0400 Systolic blood pressure 131 mm[Hg] No Primary Care Physician [facility] 08-25-2022 11:36-0400 Body mass index (BMI) [Ratio] 33.8 kg/m2 No Primary Care Physician [facility] 08-25-2022 11:36-0400 Body weight 78.58 kg No Primary Care Physician [facility] 08-25-2022 11:36-0400 Diastolic blood pressure 81 mm[Hg] No Primary Care Physician [facility] 08-25-2022 11:36-0400 Systolic blood pressure 116 mm[Hg] No Primary Care Physician [facility] 08-16-2022 18:42-0500 Body height 152.4 cm No Primary Care Physician [facility] 08-16-2022 18:42-0500 Body mass index (BMI) [Ratio] 32.8 kg/m2 No Primary Care Physician [facility] 08-16-2022 18:42-0500 Body weight 76.31 kg No Primary Care Physician [facility] 08-16-2022 18:36-0500 Body temperature 97.8 [degF] No Primary Care Physician [facility] 08-16-2022 18:36-0500 Diastolic blood pressure 72 mm[Hg] No Primary Care Physician [facility] 08-16-2022 18:36-0500 Heart rate 102 /min No Primary Care Physician [facility] 08-16-2022 18:36-0500 SaO2% (BldA) [Mass fraction] 100 % No Primary Care Physician [facility] 08-16-2022 18:36-0500 Systolic blood pressure 116 mm[Hg] No Primary Care Physician [facility] 08-12-2022 13:37-0500 Body mass index (BMI) [Ratio] 31.6 kg/m2 No Primary Care Physician [facility] 08-12-2022 13:37-0500 Body weight 75.97 kg No Primary Care Physician [facility] 08-12-2022 13:37-0500 Diastolic blood pressure 74 mm[Hg] No Primary Care Physician [facility] 08-12-2022 13:37-0500 Systolic blood pressure 109 mm[Hg] No Primary Care Physician [facility] 07-30-2022 11:32-0500 Body mass index (BMI) [Ratio] 31 kg/m2 No Primary Care Physician [facility] 07-30-2022 11:32-0500 Body weight 74.5 kg No Primary Care Physician [facility] 07-30-2022 11:32-0500 Diastolic blood pressure 76 mm[Hg] No Primary Care Physician [facility] 07-30-2022 11:32-0500 Systolic blood pressure 108 mm[Hg] No Primary Care Physician [facility] 07-16-2022 13:32-0500 Body mass index (BMI) [Ratio] 30.2 kg/m2 No Primary Care Physician [facility] 07-16-2022 13:32-0500 Body weight 72.74 kg No Primary Care Physician [facility] 07-16-2022 13:32-0500 Diastolic blood pressure 81 mm[Hg] No Primary Care Physician [facility] 07-16-2022 13:32-0500 Systolic blood pressure 120 mm[Hg] No Primary Care Physician [facility] 07-06-2022 15:16-0500 Body mass index (BMI) [Ratio] 29 kg/m2 No Primary Care Physician [facility] 07-06-2022 15:16-0500 Body weight 69.65 kg No Primary Care Physician [facility] 07-06-2022 15:16-0500 Diastolic blood pressure 66 mm[Hg] No Primary Care Physician [facility] 07-06-2022 15:16-0500 Systolic blood pressure 99 mm[Hg] No Primary Care Physician [facility] 07-01-2022 20:46-0500 Diastolic blood pressure 84 mm[Hg] No Primary Care Physician [facility] 07-01-2022 20:46-0500 Heart rate 90 /min No Primary Care Physician [facility] 07-01-2022 20:46-0500 Systolic blood pressure 119 mm[Hg] No Primary Care Physician [facility] 07-01-2022 20:44-0500 Body temperature 98 [degF] No Primary Care Physician [facility] 07-01-2022 20:37-0500 Body height 154.94 cm No Primary Care Physician [facility] 07-01-2022 20:37-0500 Body mass index (BMI) [Ratio] 29.2 kg/m2 No Primary Care Physician [facility] 07-01-2022 20:37-0500 Body weight 70.3 kg No Primary Care Physician [facility] 06-22-2022 10:55-0500 Body mass index (BMI) [Ratio] 28.5 kg/m2 No Primary Care Physician [facility] 06-22-2022 10:55-0500 Body weight 68.66 kg No Primary Care Physician [facility] 06-22-2022 10:55-0500 Diastolic blood pressure 83 mm[Hg] No Primary Care Physician [facility] 06-22-2022 10:55-0500 Systolic blood pressure 122 mm[Hg] No Primary Care Physician [facility] 05-27-2022 14:14-0500 Body mass index (BMI) [Ratio] 27.1 kg/m2 No Primary Care Physician [facility] 05-27-2022 14:14-0500 Body weight 65.31 kg No Primary Care Physician [facility] 05-27-2022 14:14-0500 Diastolic blood pressure 78 mm[Hg] No Primary Care Physician [facility] 05-27-2022 14:14-0500 Systolic blood pressure 122 mm[Hg] No Primary Care Physician [facility] 04-28-2022 13:12-0500 Body mass index (BMI) [Ratio] 26.6 kg/m2 No Primary Care Physician [facility] 04-28-2022 13:12-0500 Body weight 63.95 kg No Primary Care Physician [facility] 04-28-2022 13:12-0500 Diastolic blood pressure 78 mm[Hg] No Primary Care Physician [facility] 04-28-2022 13:12-0500 Systolic blood pressure 112 mm[Hg] No Primary Care Physician [facility] 03-29-2022 13:02-0400 Body mass index (BMI) [Ratio] 25.9 kg/m2 No Primary Care Physician [facility] 03-29-2022 13:02-0400 Body weight 62.14 kg No Primary Care Physician [facility] 03-29-2022 13:02-0400 Diastolic blood pressure 74 mm[Hg] No Primary Care Physician [facility] 03-29-2022 13:02-0400 Systolic blood pressure 114 mm[Hg] No Primary Care Physician [facility] 03-11-2022 10:32-0400 Body height 154.94 cm No Primary Care Physician [facility] Work Phone: 03-11-2022 10:32-0400 Body mass index (BMI) [Ratio] 25.4 kg/m2 No Primary Care Physician [facility] 03-11-2022 10:32-0400 Body weight 61.23 kg No Primary Care Physician [facility] 03-11-2022 10:32-0400 Diastolic blood pressure 69 mm[Hg] No Primary Care Physician [facility] 03-11-2022 10:32-0400 Systolic blood pressure 101 mm[Hg] No Primary Care Physician [facility] Encounters Encounter Date Encounter Type Care Provider Facility Start: 01-16-2025 End: 01-16-2025 ambulatory Sharri Begum Facility:[facility] Start: 01-16-2025 End: 01-16-2025 Patient encounter procedure Sharri Kel CNM -[facility] Work Phone: Start: 01-07-2025 Patient encounter procedure Sharri Kel CNM -[facility] Work Phone: Start: 01-07-2025 ambulatory Sharri Begum Facility :[facility] Start: 01-07-2025 End: 01-07-2025 Patient encounter procedure Sharri Begum CNM -[facility] Work Phone: Start: 01-07-2025 End: 01-07-2025 ambulatory No Primary Care Physician -[facility] Start: 01-03-2025 End: 01-03-2025 ambulatory LYNSEY Hinkle LEONARDO [place] Start: 12-25-2024 End: 12-25-2024 ambulatory No Primary Care Physician -[facility] Start: 12-25-2024 End: 12-25-[address] Lynsey Ambrocio DO -[facility] Work Phone: Start: 12-11-2024 End: 12-11-2024 Patient encounter procedure Imani ZEE -[facility] Work Phone: Start: 12-11-2024 End: 12-11-2024 ambulatory No Primary Care Physician -[facility] Start: 12-05-2024 ambulatory Lynsey Edwardsty:[facility] Start: 12-05-2024 Non-patient / Non-visit Dr. Clarence Ambrocio DO -[facility] Start: 12-05-2024 End: 12-05-2024 ambulatory No Primary Care Physician [facility] Work Phone: Start: 12-05-2024 End: 12-05-[address] Lynsey Ambrocio DO -[facility] Work Phone: Start: 11-27-2024 End: 11-27-[address] Lynsey Ambrocio DO -[facility] Work Phone: Start: 11-27-2024 End: 11-27-2024 ambulatory No Primary Care Physician [facility] Work Phone: Start: 11-15-2024 End: 11-15-2024 ambulatory [facility] Start: 11-13-2024 End: 11-13-2024 ambulatory No Primary Care Physician [facility] Work Phone: Start: 11-13-2024 End: 11-13-2024 Patient encounter procedure Imani ZEE -[facility] Work Phone: Start: 11-13-2024 End: 11-13-2024 ambulatory Sharri Begum Facility:[facility] Start: 10-30-2024 End: 10-30-2024 Patient encounter procedure Sharri SAMPSON -[facility] Work Phone: Start: 10-30-2024 End: 10-30-2024 ambulatory No Primary Care Physician [facility] Work Phone: Start: 10-18-2024 End: 10-18-2024 Non-patient / Non-visit Dr. Manolo Merritt MD -[facility] Work Phone: Start: 10-18-2024 End: 10-18-2024 Patient encounter procedure Imani ZEE -[facility] Work Phone: Start: 10-18-2024 End: 10-18-2024 ambulatory No Primary Care Physician [facility] Work Phone: Start: 10-18-2024 End: 10-18-2024 ambulatory Imani Sullivan NP Facility:[facility] Start: 10-16-2024 End: 10-16-2024 Emergency department patient visit Dr. Edwin Rome MD -Emergency Department Work Phone: Start: 10-02-2024 End: 10-02-2024 Patient encounter procedure Imani ZEE -[facility] Work Phone: Start: 10-02-2024 End: 10-02-2024 ambulatory No Primary Care Physician Facility:[facility] Start: 09-13-2024 End: 09-13-2024 ambulatory [facility] Start: 09-04-2024 End: 09-04-2024 Patient encounter procedure Imani ZEE -[facility] Work Phone: Start: 09-04-2024 End: 09-04-2024 ambulatory No Primary Care Physician Facility:[facility] Start: 08-07-2024 End: 08-07-[address] Karyna Carr MD -[facility] Work Phone: Start: 08-07-2024 End: 08-07-2024 ambulatory No Primary Care Physician Facility:[facility] Start: 07-10-2024 End: 07-10-2024 Patient encounter procedure Sharri Begum CNM -Lab, [facility] Start: 07-10-2024 End: 07-10-2024 ambulatory No Primary Care Physician Facility:[facility] Start: 07-06-2024 End: 07-06-2024 Patient encounter procedure Sharri Begum CNM -Laboratory, [facility] Work Phone: Start: 07-06-2024 End: 07-06-2024 Patient encounter procedure Sharri Begum CNM -[facility] Work Phone: Start: 07-06-2024 End: 07-06-2024 ambulatory No Primary Care Physician Facility:[facility] Start: 07-06-2024 End: 07-06-2024 ambulatory No Primary Care Physician Facility:[facility] Start: 06-22-2024 ambulatory Annette Mehtaly Facility :[facility] Start: 04-03-2024 Encounter for gynecological examination (general) (routine) with abnormal findings Imani Sullivan NP [facility] Start: 04-03-2024 End: 04-03-2024 ambulatory No Primary Care Physician Facility:[facility] Start: 04-03-2024 End: 04-03-2024 ambulatory No Primary Care Physician Facility:[facility] Start: 03-13-2024 End: 03-13-2024 ambulatory No Primary Care Physician Facility:[facility] Start: 02-15-2024 End: 02-15-2024 ambulatory ALMAZ GORDON [facility] Start: 12-22-2023 End: 12-22-2023 ambulatory CHAVA EL [facility] Start: 06-19-2023 End: 06-19-2023 Emergency department patient visit YUDY ADAIRWAPENNY [facility] Start: 05-02-2023 End: 05-02-2023 ambulatory No Primary Care Physician [facility] Work Phone: Start: 05-02-2023 End: 05-02-2023 Patient encounter procedure No Primary Care Physician [facility]-Ultrasound, [facility] Work Phone: Start: 04-21-2023 End: 04-21-2023 ambulatory No Primary Care Physician [facility] Work Phone: Start: 04-21-2023 End: 04-21-2023 Patient encounter procedure No Primary Care Physician [facility]-Laboratory, [facility] Work Phone: Start: 04-21-2023 End: 04-21-2023 Patient encounter procedure No Primary Care Physician [facility] Work Phone: Start: 03-01-2023 End: 03-01-2023 Patient encounter procedure No Primary Care Physician [facility] Work Phone: Start: 02-15-2023 End: 02-15-2023 ambulatory LINH ALEXANDRA Facility:[facility] Start: 02-15-2023 End: 02-15-2023 Patient encounter procedure Linh Alexandra OD Work Phone: Ophthalmology Comment on above: Amblyopia suspect, l eft eye (Primary Dx); Anisometropia; Accommodative insufficiency Start: 01-20-2023 End: 01-20-2023 Patient encounter procedure No Primary Care Physician [facility] Work Phone: Start: 12-23-2022 End: 12-23-2022 ambulatory No Primary Care Physician [facility] Work Phone: Start: 12-23-2022 End: 12-23-2022 Patient encounter procedure No Primary Care Physician [facility]-Laboratory, Specimen Work Phone: Start: 12-23-2022 End: 12-23-2022 Patient encounter procedure No Primary Care Physician [facility] @ Start: 11-11-2022 End: 11-11-2022 ambulatory No Primary Care Physician [facility] Work Phone: Start: 11-11-2022 End: 11-11-2022 Patient encounter procedure No Primary Care Physician [facility]-Laboratory, Specimen Start: 11-11-2022 End: 11-11-2022 Patient encounter procedure No Primary Care Physician [facility] Start: 11-05-2022 End: 11-05-2022 Patient encounter procedure No Primary Care Physician [facility] Start: 09-25-2022 Non-patient / Non-visit No Parvin dominique Care Physician [facility] Start: 09-24-2022 Non-patient / Non-visit No Parvin fox Care Physician [facility] Start: 09-23-2022 Non-patient / Non-visit No Parvin fox Care Physician [facility] Start: 09-23-2022 End: 09-25-2022 Evaluation and management of inpatient No Primary Care Physician [facility] Start: 09-22-2022 End: 09-23-2022 ambulatory No Primary Care Physician [facility] Work Phone: Start: 09-22-2022 End: 09-23-2022 Patient encounter procedure No Primary Care Physician [facility] [facility], Outpatients Start: 09-21-2022 End: 09-21-2022 ambulatory No Primary Care Physician [facility] Work Phone: Start: 09-21-2022 End: 09-21-2022 Patient encounter procedure No Primary Care Physician [facility]Labor[facility], Specimen Start: 09-21-2022 End: 09-21-2022 Patient encounter procedure No Primary Care Physician [facility] Start: 09-15-2022 Non-patient / Non-visit No Parvin fox Care Physician [facility] Start: 09-15-2022 End: 09-15-2022 Patient encounter procedure No Primary Care Physician [facility] Outpatients Start: 09-14-2022 Non-patient / Non-visit No Parvin fox Care Physician [facility] Start: 09-14-2022 End: 09-14-2022 ambulatory No Primary Care Physician [facility] Work Phone: Start: 09-14-2022 End: 09-14-2022 Patient encounter procedure No Primary Care Physician [facility] Outpatients Start: 09-10-2022 End: 09-10-2022 ambulatory No Primary Care Physician [facility] Work Phone: Start: 09-10-2022 End: 09-10-2022 Patient encounter procedure No Primary Care Physician [facility], Specimen Start: 09-10-2022 End: 09-10-2022 Patient encounter procedure No Primary Care Physician [facility] Start: 08-25-2022 End: 08-25-2022 Patient encounter procedure No Primary Care Physician [facility] Start: 08-16-2022 Non-patient / Non-visit No Parvin fox Care Physician [facility] Start: 08-16-2022 End: 08-16-2022 ambulatory No Primary Care Physician [facility] Work Phone: Start: 08-16-2022 End: 08-16-2022 Patient encounter procedure No Primary Care Physician [facility] Outpatients Start: 08-12-2022 End: 08-12-2022 Patient encounter procedure No Primary Care Physician [facility] @ Start: 07-30-2022 End: 07-30-2022 Patient encounter procedure No Primary Care Physician [facility] Start: 07-16-2022 End: 07-16-2022 Patient encounter procedure No Primary Care Physician [facility] Start: 07-06-2022 End: 07-06-2022 Patient encounter procedure No Primary Care Physician [facility] Start: 07-03-2022 Non-patient / Non-visit No [facility] Care Physician [facility] Start: 07-01-2022 End: 07-01-2022 Patient encounter procedure No Primary Care Physician [facility] Out[facility] Start: 06-22-2022 End: 06-22-2022 ambulatory No Primary Care Physician [facility] Work Phone: Start: 06-22-2022 End: 06-22-2022 Patient encounter procedure No Primary Care Physician [facility] Start: 05-27-2022 End: 05-27-2022 Patient encounter procedure No Primary Care Physician [facility] Start: 04-28-2022 End: 04-28-2022 Patient encounter procedure No Primary Care Physician [facility] Start: 03-29-2022 End: 03-29-2022 Patient encounter procedure No Primary Care Physician [facility] Start: 03-11-2022 End: 03-11-2022 ambulatory No Primary Care Physician [facility] Work Phone: Start: 03-11-2022 End: 03-11-2022 Patient encounter procedure No Primary Care Physician [facility] Start: 03-11-2022 End: 03-11-2022 Patient encounter procedure No Primary Care Physician [facility] Procedures Date Procedure Procedure Detail Performing Clinician Start: 01-07-2025 Beta-hemolytic Streptococcus culture No Primary Care Physician Start: 12-05-2024 Urnls dip stick/tabl et reagent auto microscopy No Primary Care Physician Start: 11-13-2024 Serologic test for syphilis No Primary Care Physician Start: 10-18-2024 X-ray of chest, PA a nd lateral views No Primary Care Physician Start: 10-16-2024 Estimated creatinine clearance No Primary Care Physician Start: 07-10-2024 Hepatitis B surface antigen measurement No Primary Care Physician Start: 07-10-2024 Hepatitis C antibody measurement No Primary Care Physician Comment on above: Non Reactive: < 0.8 Equivocal: >/= 0.8 to < 1.0 Reactive: >/= 1.0The CDC requires that a reactive/equivocal HCV antibody result be sent out for confirmation. HCV Quant by PCR testing. Start: 07-10-2024 Procedure No Primary Care Physician Start: 07-10-2024 Rubella IgG measurement No Primary Care Physician Comment on above: Antibody Results Int erpretation of Immune Status Non Reactive Presumed Non-Immune Equivocal Equivocal Reactive Presumed Immune Start: 07-06-2024 Urine culture No Primar y Care Physician Start: 05-02-2023 Pelvic echography No Pr imary Care Physician Start: 04-21-2023 Cytopathology proced ure, preparation of smear, genital source No Primary Care Physician Start: 04-21-2023 Investigation of transfusion reaction No Primary Care Physician Start: 09-15-2022 US urinary tract No Parvin dominique Care Physician Start: 09-15-2022 Urine culture No Primar y Care Physician Start: 09-10-2022 Group B Streptococcu s Culture No Primary Care Physician Group B Streptococcu s Culture No Primary Care Physician Urine culture No Primary Car e Physician Urine culture No Primary Car e Physician Urine culture No Primary Car e Physician Urine culture No Primary Car e Physician Plan of Treatment Date Care Activity Detail Author Start: 12-05-2024 Nonstress test [facility] Start: 12-05-2024 Obstetric monitoring [facility] Start: 12-05-2024 Vital signs measurements [facility] Start: 12-05-2024 [facility] Start: 12-05-2024 Patient discharge [facility] Start: 11-13-2024 CBC W Auto Differential panel - Blood [facility] Start: 11-13-2024 Measurement of glucose 2 hours after glucose challenge for glucose tolerance test [facility] Start: 11-13-2024 Serologic test for syphilis [facility] Start: 11-13-2024 [facility] Start: 10-16-2024 [facility] Start: 10-16-2024 Urnls dip stick/tablet reagent auto microscopy URINALYSIS AUTO W/SCOPE [facility] Start: 02-11-2023 Influenza vaccination INFLUENZA (#1) [facility] Start: 11-11-2022 Liquid based cervical cytology screening [facility] Start: 09-25-2022 Patient discharge [facility] Start: 09-24-2022 Consultation [facility] Start: 09-23-2022 Administration of medication [facility] Start: 09-23-2022 Application of ice collar, cap or bag [facility] Start: 09-23-2022 Catheterization of vein [facility] Start: 09-23-2022 Introduction of urinary catheter [facility] Start: 09-23-2022 Measuring intake and output [facility] Start: 09-23-2022 Notification of physician [facility] Start: 09-23-2022 Procedure discontinued [facility] Start: 09-23-2022 Provision of activity privileges [facility] Start: 09-23-2022 Referral to childcare center administrator [facility] Start: 09-23-2022 Vital signs measurements [facility] Start: 09-23-2022 [facility] Start: 09-23-2022 Admission procedure [facility] Start: 09-23-2022 Nonstress test [facility] Start: 09-23-2022 Obstetric monitoring [facility] Start: 09-23-2022 Vital signs measurements [facility] Start: 09-23-2022 [facility] Start: 09-23-2022 Patient discharge [facility] Start: 09-22-2022 monitoring labor phys written report MONITOR W/REPORT [facility] Start: 09-22-2022 nonstress test NON-STRESS TEST [facility] Start: 09-21-2022 Blood count complete auto&auto difrntl wbc COMPLETE CBC W/AUTO DIFF WBC [facility] Start: 09-21-2022 Collection venous blood venipuncture ROUTINE VENIPUNCTURE [facility] Start: 09-21-2022 Comprehensive metabolic panel COMPREHEN METABOLIC PANEL [facility] Start: 09-21-2022 Creatinine other source ASSAY OF URINE CREATININE [facility] Start: 09-21-2022 Protein total xcpt refractometry urine ASSAY OF PROTEIN URINE [facility] Start: 09-15-2022 Patient discharge [facility] Start: 09-15-2022 Nonstress test [facility] Start: 09-15-2022 Obstetric monitoring [facility] Start: 09-15-2022 Vital signs measurements [facility] Start: 09-15-2022 [facility] Start: 09-15-2022 Catheterization of vein [facility] Start: 09-14-2022 End: 09-14-2022 [facility] Start: 09-14-2022 Nonstress test [facility] Start: 09-14-2022 Obstetric monitoring [facility] Start: 09-14-2022 Vital signs measurements [facility] Start: 09-14-2022 Patient discharge [facility] Start: 08-16-2022 Nonstress test [facility] Start: 08-16-2022 Obstetric monitoring [facility] Start: 08-16-2022 Vital signs measurements [facility] Start: 08-16-2022 [facility] Start: 08-16-2022 Patient discharge [facility] Start: 07-01-2022 Nonstress test [facility] Start: 07-01-2022 End: 07-01-2022 [facility] Start: 07-01-2022 Obstetric monitoring [facility] Start: 07-01-2022 Vital signs measurements [facility] Start: 07-01-2022 Patient discharge [facility] Start: 06-13-2022 DEPRESSION ASSESSMENT DEPRESSION ASSESSMENT [facility] Start: 03-11-2022 Liquid based cervical cytology screening [facility] Work Phone: Start: 2020 PAP TESTING PAP TESTING [facility] Start: 2018 Urine microalbumin profile DTAP,TDAP,TD (1 - Tdap) [facility] Start: 2017 CHLAMYDIA SCREENING (18-24) CHLAMYDIA SCREENING (18-24) [facility] Start: 2017 GC (GONORRHEA) SCREENING (18-24) GC (GONORRHEA) SCREENING (18-24) [facility] Start: 2017 HEPATITIS C SCREENING HEPATITIS C SCREENING [facility] Start: 2017 HIV SCREENING HIV SCREENING [facility] Start: 2013 PEDS TO ADULT TRANSITION ANNUAL ASSESSMENT PEDS TO ADULT TRANSITION ANNUAL ASSESSMENT [facility] Start: 2011 PEDS TO ADULT TRANSITION INITIAL DISCUSSION PEDS TO ADULT TRANSITION INITIAL DISCUSSION [facility] Start: 2008 HPV VACCINE (1 - 2-dose series) HPV VACCINE (1 - 2-dose series) [facility] Start: 1999 COVID-19 VACCINE (#1) COVID-19 VACCINE (#1) [facility] Start: 1999 HEPATITIS B (1 of 3 - 3-dose series) HEPATITIS B (1 of 3 - 3-dose series) [facility] Bacteria identified in Urine by Culture [facility] Bacteria identified in Urine by Culture Urine Culture [facility] CBC W Auto Different ial panel - Blood [facility] CBC W Auto Different ial panel - Blood [facility] Erythrocyte mean corpuscular volume determination [facility] Hematocrit [Volume Fraction] of Blood [facility] Hemoglobin [Mass/vol ume] in Blood [facility] Leukocytes [#/volume ] in Blood [facility] Mean corpuscular hemoglobin concentration determination [facility] Mean corpuscular hemoglobin determination [facility] Measurement of gluco se 2 hours after glucose challenge for glucose tolerance test [facility] Neutrophil count [facility] Neutrophil percent differential count [facility] Path report.final Dx Spec [facility] Work Phone: Path report.final Dx Spec [facility] Patient Education [place] Work Phone: Patient referral [facility] Work Phone: Platelets [#/volume] in Blood [facility] Protein/Creatinine [ Ratio] in Urine [facility] Red blood cell count [facility] Red cell distributio n width determination [facility] Serologic test for syphilis [facility] Streptococcus agalac tiae [Presence] in Unspecified specimen by Organism specific culture [facility] Streptococcus agalac tiae [Presence] in Unspecified specimen by Organism specific culture [facility] US Pelvis [facility] US Pelvis transvaginal [facility] Immunizations Immunization Date Immunization Notes Care Provider Samina garces 09-10-2022 tetanus toxoid, redu reji diphtheria toxoid, and acellular pertussis vaccine, adsorbed No Primary Care Physician [facility] Payers Date Payer Category Payer Self-pay [id number] 2022 Medicaid [id number] 2022 Medicaid [facility] [id number] 2022-Present [phone] [address] [place] [address] Medicaid [id number] 1999 Unknown [id number] 2.840.1.267365.3.579.2.651 1999 Unknown [id number] 2.840.1.296989.3.579.2.297 1999 Unknown [id number] 2.840.1.367562.3.579.2.297 1999 Unknown [id number] 2.16840.1.543914.3.579.2.479 1999 Unknown [id number] 2.16840.1.367212.3.579.2.479 1999 Unknown [id number] 2.16840.1.077039.3.579.2.479 Unknown [id number] Unknown [id number] 2.16840.1.254107.3.579.2.462 Unknown [id number] 2.16.840.1.049335.3.579.2.462 Unknown [id number] 2.16.840.1.164570.3.579.2.462 Unknown [id number] 2.16.840.1.076650.3.579.2.462 Unknown [id number] 2.16.840.1.467609.3.579.2.462 Unknown [id number] 2.16.840.1.083874.3.579.2.462 Unknown [id number] 2.840.1.150685.3.579.2.462 Unknown [id number] 2.840.1.685904.3.579.2.462 Unknown [id number] 2.840.1.879924.3.579.2.462 Unknown [id number] 2.840.1.415708.3.579.2.462 Unknown [id number] 2.840.1.636103.3.579.2.462 Unknown [id number] 2.840.1.038141.3.579.2.462 Unknown [id number] 2.840.1.316650.3.579.2.462 Unknown [id number] 2.840.1.754432.3.579.2.462 Unknown [id number] 2.840.1.722220.3.579.2.462 Unknown [id number] 2.840.1.870806.3.579.2.462 Unknown [id number] 2.840.1.448566.3.579.2.462 Unknown [id number] 2.840.1.030327.3.579.2.462 Unknown [id number] 2.16840.1.504949.3.579.2.462 Unknown [id number] 2.16.840.1.859334.3.579.2.462 Unknown [id number] 2.16.840.1.072248.3.579.2.462 Unknown [id number] 2.16.840.1.164927.3.579.2.462 Unknown [id number] 2.16.840.1.905968.3.579.2.462 Unknown [id number] 2.840.1.601644.3.579.2.462 Unknown [id number] 2.16.840.1.999603.3.579.2.462 Social History Date Type Detail Facility Start: 03-11-2022 End: 04-21-2023 Tobacco smoking status WAIS Unknown if ever smoked [facility] Start: 2000 Sex Assigned At Female [facility] Start: 02-15-2023 End: 10-16-2024 Tobacco smoking status NHIS Never smoked tobacco [facility] Start: 02-15-2023 Tobacco use and exposure Smokeless tobacco non-user [facility] Start: 02-15-2023 History of Social function [facility] Start: 02-15-2023 Tobacco use panel [facility] National Score (1-100), lower number is lower risk 50 [facility] Start: 1999 Sex Assigned At Not on file [facility] Goals Date Patient Goal Desired Activity /State Mental Status Date Assessment Result Facility 10-16-2024 Cognitive function Level Of Cons ciousness Awake;Alert;Appropriate;Follow s Commands [facility] Work Phone: Clinical Notes 03-11-2022 to 01-16-2025 Note Date & Type Note Facility 01-16-2025 Progress note [facility] 01-16-2025 Progress note Note Date/Time January 16, 2025 2:12pm [facility] [address], [address] [place] [address] OFFICE VISIT Date of Service: 01/16/25 MR#: [id number] Acct: [id number] Name: GRANT RUVALCABA Rep #: [id number] : 2000 Provider: SPIKE Begum Age/Sex: 24/F Location: [facility] Status: Signed Intake Vital Signs 12/25/24 13:55 01/07/25 14:27 01/16/25 13:45 Height 5 ft 1 in 5 ft 1 in 5 ft 1 in Weight: 210 lb BMI 39.6 BP 125/90 H Intake Visit Reasons: 37 wk ob Coal Sample Tester Required: No Feel stressed/tense/nervous/anxious/difficulty sleeping: not at all Allergies No Known Allergies Allergy (Verified 01/16/25 13:43) Medications ?Medication ?Instructions ?Recorded ?Confirmed ?Type ferrous sulfate 140 mg (45 mg 140 mg PO DAILY 03/04/22 01/16/25 History iron) tablet,extended release cholecalciferol (vitamin D3) 25 25 mcg PO QDAY 4 01/16/25 History mcg (1,000 unit) capsule docosahexaenoic acid 200 mg mg PO 06/22/24 01/16/25 Hi story capsule ( DHA) sertraline 50 mg tablet (Zoloft) 50 mg PO DAILY #90 ta bs 09/04/24 01/16/25 Rx Last Menstrual Period: 05/02/24 Zika: Zika virus screening: Negative : No PFSH PFSH Medical History History of asthma Fatigue normal course Vaginal delivery Depression Contact with and (suspected) exposure to other viral communicable diseases Sinusitis Fibromyalgia Back pain Severe headache Family History Grandmother Breast cancer Paternal Aunt Breast cancer Other Migraines Social History adopted: No household members: spouse and children housing: house number of children: 1 current occupation: [employer] current occupational exposures/hazards: No pets and animals: Yes pets and animals: dog(s) history of recent travel: No sexually active: Yes Smoking Status: Never smoker alcohol intake: current alcohol intake frequency: holidays/special occasions only details: Not while substance use type: does not use well-balanced diet: daily or most days caffeine: Yes Type: coffee eating out: rarely or never during the past year weight has: remained stable what type of physical activity do you participate in: walking frequency: 1-2 times per week duration: 15-30 minutes/day eveline/faith: Scientologist seatbelt use: always do you feel safe at home: Yes additional social history: : [employer] History 2 Elective abortions Hx Para 1 Spontaneous abortions Hx # Term Pregnancies 1 Ectopic pregnancies Hx # Pregnancies Multiple births # of living children 1 Past Pregnancies Del. Date Name GA/Weeks Outcome Route Bth Weight Infant Gen Labor Lgth Anesthesia Del Locatn Provider FOB 09/23/22 Kate 38 live - full term 7lbs 6oz Male epi dural [facility] Karyna Carr [place] Delivery Date: 09/23/22 Last Updated by: Jenna Ahmadi SM IAL SROM boy kate HPI 37 wk ob Details: GRANT RUVALCABA is a 24 year old who presents for routine OB visit. OB Visit EMRA Calculator Estimated Delivery Date Method Current WG Current Estimate 02/06/25 LMP (Certain) 37w 0d Other Estimates 02/05/25 Ultrasound #1 37w 1d Expected Delivery Route/Plan Labor Preferences- CB/BF classes: no labor support person: Killian labor intervention preferences: [] pain management options preferred: epidural if requested cut cord/dad catch: cord : no PP control planned: discussed discussed possible routes of delivery and associated risks: [] special requests: [] Specific Issue/Plans Covid status: [] Flu vaccine: [] Tdap vaccine: [] Rhogam: NA LARC form signed: yes Problem list reviewed and updated with the most current plan of care details and appropriate orders placed. Relevant counseling for the gestational age provided. Continue routine care and follow up unless otherwise noted in visit notes/problem list details Initial Weight: 171 lb Date -?-?-?-?-?-?-?-?-?-?-?-?- EGA Weight BP Urine Prot -?-?-?-?-?-?-?-?-?-?-?-?- Glucose FHR FuHt Pres Dilation -?-?-?-?-?-?-?-?-?-?-?-?- Effaced St Visit Note 07/06/24 -?-?-?-?-?-?-?-?-?-?-?-?- 9w 2d 171 lb (+0 oz) 115/78 -?-?-?-?-?-?-?-?-?-?-?-?- 168 -?-?-?-?-?-?-?-?-?-?-?-?- KW- CRL cons wit h dates. accepts NIPT. 08/07/24 -?-?-?-?-?-?-?-?-?-?-?-?- 13w 6d 168 lb 6 oz (-2 lb 10 oz) 123/82 Negative -?-?-?-?-?-?-?-?-?-?-?-?- Negative 160 -?-?-?-?-?-?-?-?-?-?-?-?- SM- no vb lof so me nausea 09/04/24 -?-?-?-?-?-?-?-?-?-?-?-?- 17w 6d 171 lb 8 oz (+8 oz) 113/79 Negative -?-?-?-?-?-?-?-?-?-?-?-?- Negative 145 -?-?-?-?-?-?-?-?-?-?-?-?- -No VB. Nausea resolved. PCP increased her to 50mg zoloft and needs refill/sent. 10/02/24 -?-?-?-?-?-?-?-?-?-?-?-?- 21w 6d 175 lb 2 oz (+4 lb 2 oz) 110/72 Negative -?-?-?-?-?-?-?-?-?-?-?-?- Negative 146 -?-?-?-?-?-?-?-?-?-?-?-?- MH-No VB, LOF. G ood FM. 28 wk US w MFM scheduled 10/18/24 -?-?-?-?-?-?-?-?-?-?-?-?- 24w 1d 180 lb 8 oz (+9 lb 8 oz) 118/81 Trace -?-?-?-?-?-?-?-?-?-?-?-?- Negative 153 -?-?-?-?-?-?-?-?-?-?-?-?- -work in ED fo llow up: good FM. Cont with headache, dizziness, chest pain and SOB. Normal CBC, CMP. Very frustrated with ED visit and still not feeling well. Will get stat EKG and CXR today 10/30/24 -?-?-?-?-?-?-?-?-?-?-?-?- 25w 6d 183 lb 2 oz (+12 lb 2 oz) 113/78 Negative -?-?-?-?-?-?-?-?-?-?-?-?- Negative 150 25 -?-?-?-?-?-?-?-?-?-?-?-?- KW- no vb/lof/ct x. good fm. glucose next visit. 11/13/24 -?-?-?-?-?-?-?-?-?-?-?-?- 27w 6d 185 lb 4 oz (+14 lb 4 oz) 112/78 Negative -?-?-?-?-?-?-?-?-?-?-?-?- Negative 143 28 -?-?-?-?-?-?-?-?-?-?-?-?- -No VB, LOF. G ood FM. Larc. 28 wk labs pending 11/27/24 -?-?-?-?-?-?-?-?-?-?-?-?- 29w 6d 192 lb (+21 lb) 109/72 Negative -?-?-?-?-?-?-?-?-?-?-?-?- Negative 145 29 -?-?-?-?-?-?-?-?-?-?-?-?- JV- no lof, vagi nal bleeding, or dec fm. no complaints other than a sharp left lower side pain x1 over the weekend. declines tdap. 12/11/24 -?-?--?-?-?-?-?-?-?-?-?-?- 31w 6d 192 lb 4 oz (+21 lb 4 oz) 118/86 Trace -?-?-?-?-?-?-?-?-?-?-?-?- Negative 150 31 -?-?-?-?-?-?-?-?-?-?-?-?- MH-No Vb, LOF. G ood FM. Minimal fluids today/enc increase patrick with heat. 12/25/24 -?-?-?-?-?-?-?-?-?-?-?-?- 33w 6d 198 lb (+27 lb) 120/83 Negative -?-?-?-?-?-?-?-?-?-?-?-?- Negative 143 31 -?-?-?-?-?-?-?-?-?-?-?-?- JV- growth scan ordered for SGA. starting to have BH contractions. 01/07/25 -?-?-?-?-?-?-?-?-?-?-?-?- 35w 5d 203 lb 2 oz (+32 lb 2 oz) 112/81 -?-?-?-?-?-?-?-?-?-?-?-?- 140 34 Cephalic 2 -?-?-?-?-?-?-?-?-?-?-?-?- 50 -2 KW- no vb/ lof/reg ctx. good fm. GBS today KW- no vb/lof/reg ctx. good fm. GBS today. growth scan was done last tu with MFM and pt said EFW was 6lbs 01/16/25 -?-?-?-?-?-?-?-?-?-?-?-?- 37w 0d 210 lb (+39 lb) 125/90 Negative -?-?-?-?-?-?-?-?-?-?-?-?- Negative 140 37 Cephalic 3 -?-?-?-?-?-?-?-?-?-?-?-?- 60 -2 KW- no vb/ lof/Ctx q 2-8 minutes-that started this am. stronger over the last hour. good fm. labor precautions reviewed ACOG First Trimester First Trimester: Desire for , Alcohol, Tobacco Cessation, Illicit/Recreational Drug/Substance Use, Intimate Partner Violence, Barriers to care, Unstable Housing, Communication Barriers, Environmental/Work Hazards, Anticipated Course of Care, Toxoplasmosis Precations, Use of Any medications, Sexual activity, Exercise, Dental Care, Sauna/Hot tub use, Seat Belt use, Childbirth classes/Hospital facilities, Travel, Indications for Ultrasound and Screening for Aneuploidy; Discussed Second Trimester Second Trimester: Signs and Symptoms of Labor, Selecting a care provider, Reproductive Life Planning & Contreception, Care Planning, Depression/Anxiety and Intimate Partner Violence; Discussed Tobacco Cessation Third Trimester Third Trimester: Pain Management Plans, Labor support person(s), Immediate Larc, Movement Monitoring, Signs and Symptoms of Preeclampsia, Labor Signs, [place] Education, Family Medical Leave or Disability Forms, Depression and Intimate Partner Violence; Discussed Tobacco Cessation ROS Const Reports system reviewed and no additional complaints, except as documented Eyes Reports system reviewed and no additional complaints, except as documented ENT Reports system reviewed and no additional complaints, except as documented Card Reports system reviewed and no additional complaints, except as documented Resp Reports system reviewed and no additional complaints, except as documented GI Reports system reviewed and no additional complaints, except as documented, Denies nausea and Denies vomiting Reports system reviewed and no additional complaints, except as documented Musc Reports system reviewed and no additional complaints, except as documented Skin/Breast Reports system reviewed and no additional complaints, except as documented Neuro Yes system reviewed and no additional complaints, except as documented Psych Reports system reviewed and no additional complaints, except as documented Endo Reports system reviewed and no additional complaints, except as documented Dario/Lymph Reports system reviewed and no additional complaints, except as documented Aller/Immun Reports system reviewed and no additional complaints, except as documented Exam Const General: cooperative, healthy appearing and no acute distress Orientation: alert, awake and oriented x3 Neck Neck: normal visual inspection and full ROM Resp Effort & Inspection: normal respiratory effort, able to speak in complete sentences and symmetric chest movement GI Inspection: normal to inspection Palpation: soft and other Other: gravid Skin General: no rashes or lesions noted Neuro General: patient alert, patient awake and patient oriented x3 Cognition: normal cognition Speech: speech normal Gait: normal gait Motor: muscle tone normal throughout Extrem General: normal to inspection and full ROM Psych Appearance: grossly normal Mental Status: mental status grossly normal Mood: congruent mood Affect: normal affect Speech and Movement: speech and movement normal Attitude: cooperative Thought Process: normal Thought Content: normal Judgment: judgment good Results POC Urinalysis 2 Dip (Clinic) Office Urine Glucose Negative Last Edit by Imani Bowers on 01/16/25 13:52 Office Urine Protein Negative Last Edit by Imani Bowers on 01/16/25 13:52 Coding Level of Care Code Off vis,est,level 3 Diagnoses SGA (small for gestational age), , affecting care of mother, antepartum O36.5990 Trauma during O9A.219 headache in second trimester O26.892; R51.9 Trimester: second trimester SOB (shortness of breath) R06.02 Obesity affecting in second trimester, unspecified obesity type O99.212 Obesity type affecting : unspecified obesity Trimester: second trimester Supervision of high risk in third trimester O09.93 Trimester: third trimester 37 weeks gestation of Z3A.37 Weeks of gestation: 37 weeks Anxiety F41.9 Depression, unspecified depression type F32.A Depression Type: unspecified 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al R87.610; R87.810 Assessment and Plan Assessment and Plan (1) SGA (small for gestational age), , affecting care of mother, antepartum: Status: Acute (2) Trauma during : Status: Acute (3) Headache in : Status: Acute Qualifiers: Trimester: second trimester Qualified Code(s): O26.892 - Other specified related conditions, second trimester; R51.9 - Headache, unspecified Comment: improved (4) SOB (shortness of breath): Status: Acute Comment: improved (5) Obesity affecting : Status: Acute Qualifiers: Obesity type affecting : unspecified obesity Trimester: second trimester Qualified Code(s): O99.212 - Obesity complicating , second trimester Comment: BMI 30.3; HgBA1C w/NOB (6) Supervision of high-risk : Status: Acute Qualifiers: Trimester: third trimester Qualified Code(s): O09.93 - Supervision of high risk , unspecified, third trimester Comment: PRR, , ERMA 02/06/25,girl Fatimah PC: Kate, : Killian (7) : Status: Acute Qualifiers: Weeks of gestation: 37 weeks Qualified Code(s): Z3A.37 - 37 weeks gestation of Comment: GBS neg, (Carrier testing done in prior ), baby low risk, gender female (8) Anxiety: Status: Acute (9) Depression: Status: Acute Qualifiers: Depression Type: unspecified Qualified Code(s): F32.A - Depression, unspecified Comment: Zoloft/stable (10) 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al: Status: Acute Comment: +02/2022. 12/2022 neg pap and HPV; 2023: neg pap and HPV Orders: Orders POC Urinalysis 2 Dip (Clinic) Today Plan Details Additional Comments: ACOG trimester education reviewed and updated. see problem list details for updated plan management information and see below for orders placed at this visit. [place] appropriate handout given. 01/16/25 1412 <Electronically signed by Sharri nice CNM> Date _ Sharri Begum CNM Cosignalpesh Signature: Date (if applicable) CC: ~ [facility] [employer] Work Phone: [phone] 808-660407-28-2025 Progress [facility] [address], [address] [place] [address] OFFICE VISIT Date of Service: 01/07/25 MR#: [id number] Acct: [id number] Name: GRANT RUVALCABA Rep #: [id number] : 2000 Provider: SPIKE Begum Age/Sex: 24/F Location: [facility] Status: Signed Intake Vital Signs 11/13/24 13:07 12/25/24 13:55 01/07/25 14:27 Height 5 ft 1 in 5 ft 1 in 5 ft 1 in Weight: 198 lb 203 lb 2 oz BMI 37.4 38.3 BP 120/83 H 112/81 H Intake Visit Reasons: 36 wk ob Chief Complaint: 36wk OB Coal Sample Tester Required: No Is patient in pain?: No Allergies No Known Allergies Allergy (Verified 01/07/25 14:25) Medications ?Medication ?Instructions ?Recorded ?Confirmed ?Type ferrous sulfate 140 mg (45 mg 140 mg PO DAILY 03/04/22 01/07/25 History iron) tablet,extended release cholecalciferol (vitamin D3) 25 25 mcg PO QDAY 4 01/07/25 History mcg (1,000 unit) capsule docosahexaenoic acid 200 mg mg PO 06/22/24 01/07/25 Hi story capsule ( DHA) sertraline 50 mg tablet (Zoloft) 50 mg PO DAILY #90 ta bs 09/04/24 01/07/25 Rx Last Menstrual Period: 05/02/24 : No PFSH PFSH Medical History History of asthma Fatigue normal course Vaginal delivery Depression Contact with and (suspected) exposure to other viral communicable diseases Sinusitis Fibromyalgia Back pain Severe headache Family History Grandmother Breast cancer Paternal Aunt Breast cancer Other Migraines Social History adopted: No household members: spouse and children housing: house number of children: 1 current occupation: [employer] current occupational exposures/hazards: No pets and animals: Yes pets and animals: dog(s) history of recent travel: No sexually active: Yes Smoking Status: Never smoker alcohol intake: current alcohol intake frequency: holidays/special occasions only details: Not while substance use type: does not use well-balanced diet: daily or most days caffeine: Yes Type: coffee eating out: rarely or never during the past year weight has: remained stable what type of physical activity do you participate in: walking frequency: 1-2 times per week duration: 15-30 minutes/day eveline/faith: Scientologist seatbelt use: always do you feel safe at home: Yes additional social history: : [place] - [employer] History 2 Elective abortions Hx Para 1 Spontaneous abortions Hx # Term Pregnancies 1 Ectopic pregnancies Hx # Pregnancies Multiple births # of living children 1 Past Pregnancies Del. Date Name GA/Weeks Outcome Route Bth Weight Infant Gen Labor Lgth Anesthesia Del Locatn Provider FOB 09/23/22 Kate 38 live - full term 7lbs 6oz Male epi dural [facility] Karyna Carr Killian Delivery Date: 09/23/22 Last Updated by: Jenna Ahmadi SM IAL SROM boy kate HPI 36 wk ob Details: GRANT RUVALCABA is a 24 year old who presents for routine OB visit. OB Visit ERMA Calculator Estimated Delivery Date Method Current WG Current Estimate 02/06/25 LMP (Certain) 35w 5d Other Estimates 02/05/25 Ultrasound #1 35w 6d Expected Delivery Route/Plan Labor Preferences- CB/BF classes: no labor support person: Killian labor intervention preferences: [] pain management options preferred: epidural if requested cut cord/dad catch: cord : no PP control planned: discussed discussed possible routes of delivery and associated risks: [] special requests: [] Specific Issue/Plans Covid status: [] Flu vaccine: [] Tdap vaccine: [] Rhogam: NA LARC form signed: yes Problem list reviewed and updated with the most current plan of care details and appropriate ordersplaced. Relevant counseling for the gestational age provided. Continue routine care and follow up unless otherwise noted in visit notes/problem list details Initial Weight: 171 lb Date -?-?-?-?-?-?-?-?-?-?-?-?- EGA Weight BP Urine Prot -?-?-?-?-?-?-?-?-?-?-?-?- Glucose FHR FuHt Pres Dilation -?-?-?-?-?-?-?-?-?-?-?-?- Effaced St Visit Note 07/06/24 -?-?-?-?-?-?-?-?-?-?-?-?- 9w 2d 171 lb (+0 oz) 115/78 -?-?-?-?-?-?-?-?-?-?-?-?- 168 -?-?-?-?-?-?-?-?-?-?-?-?- KW- CRL cons wit h dates. accepts NIPT. 08/07/24 -?-?-?-?-?-?-?-?-?-?-?-?- 13w 6d 168 lb 6 oz (-2 lb 10 oz) 123/82 Negative -?-?-?-?-?-?-?-?-?-?-?-?- Negative 160 -?-?-?-?-?-?-?-?-?-?-?-?- SM- no vb lof so me nausea 09/04/24 -?-?-?-?-?-?-?-?-?-?-?-?- 17w 6d 171 lb 8 oz (+8 oz) 113/79 Negative -?-?-?-?-?-?-?-?-?-?-?-?- Negative 145 -?-?-?-?-?-?-?-?-?-?-?-?- -No VB. Nausea resolved. PCP increased her to 50mg zoloft and needs refill/sent. 10/02/24 -?-?-?-?-?-?-?-?-?-?-?-?- 21w 6d 175 lb 2 oz (+4 lb 2 oz) 110/72 Negative -?-?-?-?-?-?-?-?-?-?-?-?- Negative 146 -?-?-?-?-?-?-?-?-?-?-?-?- -No VB, LOF. G ood FM. 28 wk US w MFM scheduled 10/18/24 -?-?-?-?-?-?-?-?-?-?-?-?- 24w 1d 180 lb 8 oz (+9 lb 8 oz) 118/81 Trace -?-?-?-?-?-?-?-?-?-?-?-?- Negative 153 -?-?-?-?-?-?-?-?-?-?-?-?- -work in ED fo llow up: good FM. Cont with headache, dizziness, chest pain and SOB. Normal CBC, CMP. Very frustrated with ED visit and still not feeling well. Will get stat EKG and CXR today 10/30/24 -?-?-?-?-?-?-?-?-?-?-?-?- 25w 6d 183 lb 2 oz (+12 lb 2 oz) 113/78 Negative -?-?-?-?-?-?-?-?-?-?-?-?- Negative 150 25 -?-?-?-?-?-?-?-?-?-?-?-?- KW- no vb/lof/ct x. good fm. glucose next visit. 11/13/24 -?-?-?-?-?-?-?-?-?-?-?-?- 27w 6d 185 lb 4 oz (+14 lb 4 oz) 112/78 Negative -?-?-?-?-?-?-?-?-?-?-?-?- Negative 143 28 -?-?-?-?-?-?-?-?-?-?-?-?- MH-No VB, LOF. G ood FM. Larc. 28 wk labs pending 11/27/24 -?-?-?-?-?-?-?-?-?-?-?-?- 29w 6d 192 lb (+21 lb) 109/72 Negative -?-?-?-?-?-?-?-?-?-?-?-?- Negative 145 29 -?-?-?-?-?-?-?-?-?-?-?-?- JV- no lof, vagi nal bleeding, or dec fm. no complaints other than a sharp left lower side pain x1 over the weekend. declines tdap. 12/11/24 -?-?-?-?-?-?-?-?-?-?-?-?- 31w 6d 192 lb 4 oz (+21 lb 4 oz) 118/86 Trace -?-?-?-?-?-?-?-?-?-?-?-?- Negative 150 31 -?-?-?-?-?-?-?-?-?-?-?-?- MH-No Vb, LOF. G ood FM. Minimal fluids today/enc increase patrick with heat. 12/25/24 -?-?-?-?-?-?-?-?-?-?-?-?- 33w 6d 198 lb (+27 lb) 120/83 Negative -?-?-?-?-?--?-?-?-?-?-?-?- Negative 143 31 -?-?-?-?-?-?-?-?-?-?-?-?- JV- growth scan ordered for SGA. starting to have BH contractions. 01/07/25 -?-?-?-?-?-?-?--?-?-?-?-?- 35w 5d 203 lb 2 oz (+32 lb 2 oz) 112/81 -?-?-?-?-?-?-?-?-?-?-?-?- 140 34 Cephalic 2 -?-?-?-?-?-?-?-?-?-?-?-?- 50 -2 KW- no vb/ lof/reg ctx. good fm. GBS today KW- no vb/lof/reg ctx. good fm. GBS today. growth scan was done last with MFM and pt said EFW was 6lbs ACOG First Trimester First Trimester: Desire for , Alcohol, Tobacco Cessation, Illicit/Recreational Drug/Substance Use, Intimate Partner Violence, Barriers to care, Unstable Housing, Communication Barriers, Environmental/Work Hazards, Anticipated Course of Care, Toxoplasmosis Precations, Use of Any med ications, Sexual activity, Exercise, Dental Care, Sauna/Hot tub use, Seat Belt use, Childbirth classes/Hospital facilities, Travel, Indications for Ultrasound and Screening for Aneuploidy; Discussed Second Trimester Second Trimester: Signs and Symptoms of Labor, Selecting a care provider, Reproductive Life Planning & Contreception, Care Planning, Depression/Anxiety and Intimate Partner Violence; Discussed Tobacco Cessation Third Trimester Third Trimester: Pain Management Plans, Labor support person(s), Immediate Larc, Movement Monitoring, Signs and Symptoms of Preeclampsia, Labor Signs, Education, Family Medical Leave or Disability Forms, Depression and Intimate Partner Violence; Discussed Tobacco Cessation ROS Const Reports system reviewed and no additional complaints, except as documented Eyes Reports system reviewed and no additional complaints, except as documented ENT Reports system reviewed and no additional complaints, except as documented Card Reports system reviewed and no additional complaints, except as documented Resp Reports system reviewed and no additional complaints, except as documented GI Reports system reviewed and no additional complaints, except as documented, Denies nausea and Denies vomiting Reports system reviewed and no additional complaints, except as documented Musc Reports system reviewed and no additional complaints, except as documented Skin/Breast Reports system reviewed and no additional complaints, except as documented Neuro Yes system reviewed and no additional complaints, except as documented Psych Reports system reviewed and no additional complaints, except as documented Endo Reports system reviewed and no additional complaints, except as documented Dario/Lymph Reports system reviewed and no additional complaints, except as documented Aller/Immun Reports system reviewed and no additional complaints, except as documented Exam Const General: cooperative, healthy appearing and no acute distress Orientation: alert, awake and oriented x3 Neck Neck: normal visual inspection and full ROM Resp Effort & Inspection: normal respiratory effort, able to speak in complete sentences and symmetric chest movement GI Inspection: normal to inspection Palpation: soft and other Other: gravid Skin General: no rashes or lesions noted Neuro General: patient alert, patient awake and patient oriented x3 Cognition: normal cognition Speech: speech normal Gait: normal gait Motor: muscle tone normal throughout Extrem General: normal to inspection and full ROM Psych Appearance: grossly normal Mental Status: mental status grossly normal Mood: congruent mood Affect: normal affect Speech and Movement: speech and movement normal Attitude: cooperative Thought Process: normal Thought Content: normal Judgment: judgment good Coding Level of Care Code Off vis,est,level 3 Diagnoses SGA (small for gestational age), , affecting care of mother, antepartum O36.5990 Trauma during O9A.219 headache in second trimester O26.892; R51.9 Trimester: second trimester SOB (shortness of breath) R06.02 Obesity affecting in second trimester, unspecified obesity type O99.212 Obesity type affecting : unspecified obesity Trimester: second trimester Supervision of high risk in third trimester O09.93 Trimester: third trimester 35 weeks gestation of Z3A.35 Weeks of gestation: 35 weeks Anxiety F41.9 Depression, unspecified depression type F32.A Depression Type: unspecified 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al R87.610; R87.810 Assessment and Plan Assessment and Plan (1) SGA (small for gestational age), , affecting care of mother, antepartum: Status: Acute (2) Trauma during : Status: Acute (3) Headache in : Status: Acute Qualifiers: Trimester: second trimester Qualified Code(s): O26.892 - Other specified related conditions, second trimester; R51.9 - Headache, unspecified Comment: improved (4) SOB (shortness of breath): Status: Acute Comment: improved (5) Obesity affecting : Status: Acute Qualifiers: Obesity type affecting : unspecified obesity Trimester: second trimester Qualified Code(s): O99.212 - Obesity complicating , second trimester Comment: BMI 30.3; HgBA1C w/NOB (6) Supervision of high-risk : Status: Acute Qualifiers: Trimester: third trimester Qualified Code(s): O09.93 - Supervision of high risk , unspecified, third trimester Comment: PRR, , ERMA 02/06/25,girl Fatimah PC: Kate, : Killian (7) : Status: Acute Qualifiers: Weeks of gestation: 35 weeks Qualified Code(s): Z3A.35 - 35 weeks gestation of Comment: (Carrier testing done in prior ), baby low risk, gender female (8) Anxiety: Status: Acute (9) Depression: Status: Acute Qualifiers: Depression Type: unspecified Qualified Code(s): F32.A - Depression, unspecified Comment: Zoloft/stable (10) 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al: Status: Acute Comment: +02/2022. 12/2022 neg pap and HPV; 2023: neg pap and HPV Orders: Orders POC Urinalysis 2 Dip (Clinic) Today Culture, Group B Streptococcus Today O09.93 - Supervision of high risk , unspecified, third trimester, Z3A.35 - 35 weeks gestation of Plan Details Additional Comments: ACOG trimester education reviewed and updated. see problem list details for updated plan management information and see below for orders placed atthis visit. [place] appropriate handout given. 01/07/25 1456 s SPIKE> Date _ Sharri Begum CNM Cosigner Signature: Date (if applicable) CC: ~ [facility]07-28-2025 Progress note Author Sharri Begum [facility] Note Date/Time January 07, 2025 2:56 pm [facility] [address] [place] [address], [address] [place] [address] OFFICE VISIT Date of Service: 01/07/25 MR#: [id number] Acct: [id number] Name: GRANT RUVALCABA Rep #: [id number] : 2000 Provider: SPIKE Begum Age/Sex: 24/F Location: [facility] Status: Signed Intake Vital Signs 11/13/24 13:07 12/25/24 13:55 01/07/25 14:27 Height 5 ft 1 in 5 ft 1 in 5 ft 1 in Weight: 198 lb 203 lb 2 oz BMI 37.4 38.3 BP 120/83 H 112/81 H Intake Visit Reasons: 36 wk ob Chief Complaint: 36wk OB Coal Sample Tester Required: No Is patient in pain?: No Allergies No Known Allergies Allergy (Verified 01/07/25 14:25) Medications ?Medication ?Instructions ?Recorded ?Confirmed ?Type ferrous sulfate 140 mg (45 mg 140 mg PO DAILY 03/04/22 01/07/25 History iron) tablet,extended release cholecalciferol (vitamin D3) 25 25 mcg PO QDAY 4 01/07/25 History mcg (1,000 unit) capsule docosahexaenoic acid 200 mg mg PO 06/22/24 01/07/25 Hi story capsule ( DHA) sertraline 50 mg tablet (Zoloft) 50 mg PO DAILY #90 ta bs 09/04/24 01/07/25 Rx Last Menstrual Period: 05/02/24 : No PFSH PFSH Medical History History of asthma Fatigue normal course Vaginal delivery Depression Contact with and (suspected) exposure to other viral communicable diseases Sinusitis Fibromyalgia Back pain Severe headache Family History Grandmother Breast cancer Paternal Aunt Breast cancer Other Migraines Social History adopted: No household members: spouse and children housing: house number of children: 1 current occupation: [employer] current occupational exposures/hazards: No pets and animals: Yes pets and animals: dog(s) history of recent travel: No sexually active: Yes Smoking Status: Never smoker alcohol intake: current alcohol intake frequency: holidays/special occasions only details: Not while substance use type: does not use well-balanced diet: daily or most days caffeine: Yes Type: coffee eating out: rarely or never during the past year weight has: remained stable what type of physical activity do you participate in: walking frequency: 1-2 times per week duration: 15-30 minutes/day eveline/faith: Scientologist seatbelt use: always do you feel safe at home: Yes additional social history: : [place] - [employer] online History 2 Elective abortions Hx Para 1 Spontaneous abortions Hx # Term Pregnancies 1 Ectopic pregnancies Hx # Pregnancies Multiple births # of living children 1 Past Pregnancies Del. Date Name GA/Weeks Outcome Route Bth Weight Infant Gen Labor Lgth Anesthesia Del Locatn Provider FOB 09/23/22 Kate 38 live - full term 7lbs 6oz Male epi dural [facility] Karynabrittany Carr [place]ian Delivery Date: 09/23/22 Last Updated by: Jenna Ahmadi SM IAL SROM boy kate HPI 36 wk ob Details: GRANT RUVALCABA is a 24 year old who presents for routine OB visit. OB Visit ERMA Calculator Estimated Delivery Date Method Current WG Current Estimate 02/06/25 LMP (Certain) 35w 5d Other Estimates 02/05/25 Ultrasound #1 35w 6d Expected Delivery Route/Plan Labor Preferences- CB/BF classes: no labor support person: Killian labor intervention preferences: [] pain management options preferred: epidural if requested cut cord/dad catch: cord : no PP control planned: discussed discussed possible routes of delivery and associated risks: [] special requests: [] Specific Issue/Plans Covid status: [] Flu vaccine: [] Tdap vaccine: [] Rhogam: NA LARC form signed: yes Problem list reviewed and updated with the most current plan of care details and appropriate orders placed. Relevant counseling for the gestational age provided. Continue routine care and follow up unless otherwise noted in visit notes/problem list details Initial Weight: 171 lb Date -?-?-?-?-?-?-?-?-?-?-?-?- EGA Weight BP Urine Prot -?-?-?-?-?-?-?-?-?-?-?-?- Glucose FHR FuHt Pres Dilation -?-?-?-?-?-?-?-?-?-?-?-?- Effaced St Visit Note 07/06/24 -?-?-?-?-?-?-?-?-?-?-?-?- 9w 2d 171 lb (+0 oz) 115/78 -?-?-?-?-?-?-?-?-?-?-?-?- 168 -?-?-?-?-?-?-?-?-?-?-?-?- KW- CRL cons wit h dates. accepts NIPT. 08/07/24 -?-?-?-?-?-?-?-?-?-?-?-?- 13w 6d 168 lb 6 oz (-2 lb 10 oz) 123/82 Negative -?-?-?-?-?-?-?-?-?-?-?-?- Negative 160 -?-?-?-?-?-?-?-?-?-?-?-?- SM- no vb lof so me nausea 09/04/24 -?-?-?-?-?-?-?-?-?-?-?-?- 17w 6d 171 lb 8 oz (+8 oz) 113/79 Negative -?-?-?-?-?-?-?-?-?-?-?-?- Negative 145 -?-?-?-?-?-?-?-?-?-?-?-?- MH-No VB. Nausea resolved. PCP increased her to 50mg zoloft and needs refill/sent. 10/02/24 -?-?-?-?-?-?-?-?-?-?-?-?- 21w 6d 175 lb 2 oz (+4 lb 2 oz) 110/72 Negative -?-?-?-?-?-?-?-?-?-?-?-?- Negative 146 -?-?-?-?-?-?-?-?-?-?-?-?- -No VB, LOF. G ood FM. 28 wk US w MFM scheduled 10/18/24 -?-?-?-?-?-?-?-?-?-?-?-?- 24w 1d 180 lb 8 oz (+9 lb 8 oz) 118/81 Trace -?-?-?-?-?-?-?-?-?-?-?-?- Negative 153 -?-?-?-?-?-?-?-?-?-?-?-?- -work in ED fo llow up: good FM. Cont with headache, dizziness, chest pain and SOB. Normal CBC, CMP. Very frustrated with ED visit and still not feeling well. Will get stat EKG and CXR today 10/30/24 -?-?-?-?-?-?-?-?-?-?-?-?- 25w 6d 183 lb 2 oz (+12 lb 2 oz) 113/78 Negative -?-?-?-?-?-?-?-?-?-?-?-?- Negative 150 25 -?-?-?-?-?-?-?-?-?-?-?-?- KW- no vb/lof/ct x. good fm. glucose next visit. 11/13/24 -?-?-?-?-?-?-?-?-?-?-?-?- 27w 6d 185 lb 4 oz (+14 lb 4 oz) 112/78 Negative -?-?-?-?-?-?-?-?-?-?-?-?- Negative 143 28 -?-?-?-?-?-?-?-?-?-?-?-?- -No VB, LOF. G ood FM. Larc. 28 wk labs pending 11/27/24 -?-?-?-?-?-?-?-?-?-?-?-?- 29w 6d 192 lb (+21 lb) 109/72 Negative -?-?-?-?-?-?-?-?-?-?-?-?- Negative 145 29 -?-?-?-?-?-?-?-?-?-?-?-?- JV- no lof, vagi nal bleeding, or dec fm. no complaints other than a sharp left lower side pain x1 over the weekend. declines tdap. 12/11/24 -?-?-?-?-?-?-?-?-?-?-?-?- 31w 6d 192 lb 4 oz (+21 lb 4 oz) 118/86 Trace -?-?-?-?-?-?-?-?-?-?-?-?- Negative 150 31 -?-?-?-?-?-?-?-?-?-?-?-?- MH-No Vb, LOF. G ood FM. Minimal fluids today/enc increase patrick with heat. 12/25/24 -?-?-?-?-?-?-?-?-?-?-?-?- 33w 6d 198 lb (+27 lb) 120/83 Negative -?-?-?-?-?--?-?-?-?-?-?-?- Negative 143 31 -?-?-?-?-?-?-?-?-?-?-?-?- JV- growth scan ordered for SGA. starting to have BH contractions. 01/07/25 -?-?-?-?-?-?-?--?-?-?-?-?- 35w 5d 203 lb 2 oz (+32 lb 2 oz) 112/81 -?-?-?-?-?-?-?-?-?-?-?-?- 140 34 Cephalic 2 -?-?-?-?-?-?-?-?-?-?-?-?- 50 -2 KW- no vb/ lof/reg ctx. good fm. GBS today KW- no vb/lof/reg ctx. good fm. GBS today. growth scan was done last with MFM and pt said EFW was 6lbs ACOG First Trimester First Trimester: Desire for , Alcohol, Tobacco Cessation, Illicit/Recreational Drug/Substance Use, Intimate Partner Violence, Barriers to care, Unstable Housing, Communication Barriers, Environmental/Work Hazards, Anticipated Course of Care, Toxoplasmosis Precations, Use of Any medications, Sexual activity, Exercise, Dental Care, Sauna/Hot tub use, Seat Belt use, Childbirth classes/Hospital facilities, Travel, Indications for Ultrasound and Screening for Aneuploidy; Discussed Second Trimester Second Trimester: Signs and Symptoms of Labor, Selecting a care provider, Reproductive Life Planning & Contreception, Care Planning, Depression/Anxiety and Intimate Partner Violence; Discussed Tobacco Cessation Third Trimester Third Trimester: Pain Management Plans, Labor support person(s), Immediate Larc, Movement Monitoring, Signs and Symptoms of Preeclampsia, Labor Signs, Education, Family Medical Leave or Disability Forms, Depression and Intimate Partner Violence; Discussed Tobacco Cessation ROS Const Reports system reviewed and no additional complaints, except as documented Eyes Reports system reviewed and no additional complaints, except as documented ENT Reports system reviewed and no additional complaints, except as documented Card Reports system reviewed and no additional complaints, except as documented Resp Reports system reviewed and no additional complaints, except as documented GI Reports system reviewed and no additional complaints, except as documented, Denies nausea and Denies vomiting Reports system reviewed and no additional complaints, except as documented Musc Reports system reviewed and no additional complaints, except as documented Skin/Breast Reports system reviewed and no additional complaints, except as documented Neuro Yes system reviewed and no additional complaints, except as documented Psych Reports system reviewed and no additional complaints, except as documented Endo Reports system reviewed and no additional complaints, except as documented Dario/Lymph Reports system reviewed and no additional complaints, except as documented Aller/Immun Reports system reviewed and no additional complaints, except as documented Exam Const General: cooperative, healthy appearing and no acute distress Orientation: alert, awake and oriented x3 Neck Neck: normal visual inspection and full ROM Resp Effort & Inspection: normal respiratory effort, able to speak in complete sentences and symmetric chest movement GI Inspection: normal to inspection Palpation: soft and other Other: gravid Skin General: no rashes or lesions noted Neuro General: patient alert, patient awake and patient oriented x3 Cognition: normal cognition Speech: speech normal Gait: normal gait Motor: muscle tone normal throughout Extrem General: normal to inspection and full ROM Psych Appearance: grossly normal Mental Status: mental status grossly normal Mood: congruent mood Affect: normal affect Speech and Movement: speech and movement normal Attitude: cooperative Thought Process: normal Thought Content: normal Judgment: judgment good Coding Level of Care Code Off vis,est,level 3 Diagnoses SGA (small for gestational age), , affecting care of mother, antepartum O36.5990 Trauma during O9A.219 headache in second trimester O26.892; R51.9 Trimester: second trimester SOB (shortness of breath) R06.02 Obesity affecting in second trimester, unspecified obesity type O99.212 Obesity type affecting : unspecified obesity Trimester: second trimester Supervision of high risk in third trimester O09.93 Trimester: third trimester 35 weeks gestation of Z3A.35 Weeks of gestation: 35 weeks Anxiety F41.9 Depression, unspecified depression type F32.A Depression Type: unspecified 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al R87.610; R87.810 Assessment and Plan Assessment and Plan (1) SGA (small for gestational age), , affecting care of mother, antepartum: Status: Acute (2) Trauma during : Status: Acute (3) Headache in : Status: Acute Qualifiers: Trimester: second trimester Qualified Code(s): O26.892 - Other specified related conditions, second trimester; R51.9 - Headache, unspecified Comment: improved (4) SOB (shortness of breath): Status: Acute Comment: improved (5) Obesity affecting : Status: Acute Qualifiers: Obesity type affecting : unspecified obesity Trimester: second trimester Qualified Code(s): O99.212 - Obesity complicating , second trimester Comment: BMI 30.3; HgBA1C w/NOB (6) Supervision of high-risk : Status: Acute Qualifiers: Trimester: third trimester Qualified Code(s): O09.93 - Supervision of high risk , unspecified, third trimester Comment: PRR, , ERMA 02/06/25,girl Fatimah PC: Kate, : Killian (7) : Status: Acute Qualifiers: Weeks of gestation: 35 weeks Qualified Code(s): Z3A.35 - 35 weeks gestation of Comment: (Carrier testing done in prior ), baby low risk, gender female (8) Anxiety: Status: Acute (9) Depression: Status: Acute Qualifiers: Depression Type: unspecified Qualified Code(s): F32.A - Depression, unspecified Comment: Zoloft/stable (10) 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al: Status: Acute Comment: +02/2022. 12/2022 neg pap and HPV; 2023: neg pap and HPV Orders: Orders POC Urinalysis 2 Dip (Clinic) Today Culture, Group B Streptococcus Today O09.93 - Supervision of high risk , unspecified, third trimester, Z3A.35 - 35 weeks gestation of Plan Details Additional Comments: ACOG trimester education reviewed and updated. see problem list details for updated plan management information and see below for orders placed at this visit. GA appropriate handout given. 01/07/25 7075 <Electronically signed by Sharri nice CNM> Date _ Sharri Begum CNM Cosigner Signature: Date (if applicable) CC: ~ [facility] Work Phone: [phone] 662-762406-17-2025 [facility] [address] [place] [address], [address] [place] [address] OFFICE VISIT Date of Service: 11/27/24 MR#: [id number] Acct: [id number] Name: GRANT RUVALCABA Rep #: [id number] : 2000 Provider: Dr. Lela Ambrocio DO Age/Sex: 24/F Location: [facility] Status: Signed Intake Vital Signs 10/30/24 13:25 11/13/24 13:07 11/27/24 13:20 Height 5 ft 1 in 5 ft 1 in 5 ft 1 in Weight: 192 lb BMI 36.2 BP 109/72 Intake Visit Reasons: 30 wk ob Chief Complaint: 30 Week OB Coal Sample Tester Required: No Is patient in pain?: No Allergies No Known Allergies Allergy (Verified 11/27/24 13:21) Medications ?Medication ?Instructions ?Recorded ?Confirmed ?Type ferrous sulfate 140 mg (45 mg 140 mg PO DAILY 03/04/22 11/27/24 History iron) tablet,extended release cholecalciferol (vitamin D3) 25 25 mcg PO QDAY 4 11/27/24 History mcg (1,000 unit) capsule docosahexaenoic acid 200 mg mg PO 06/22/24 11/27/24 Hi story capsule ( DHA) sertraline 50 mg tablet (Zoloft) 50 mg PO DAILY #90 ta bs 09/04/24 11/27/24 Rx Last Menstrual Period: 05/02/24 Zika: Zika virus screening: Negative : No PFSH PFSH Medical History History of asthma Fatigue normal course Vaginal delivery Depression Contact with and (suspected) exposure to other viral communicable diseases Sinusitis Fibromyalgia Back pain Severe headache Family History Grandmother Breast cancer Paternal Aunt Breast cancer Other Migraines Social History adopted: No household members: spouse and children housing: house number of children: 1 current occupation: [employer] current occupational exposures/hazards: No pets and animals: Yes pets and animals: dog(s) history of recent travel: No sexually active: Yes Smoking Status: Never smoker alcohol intake: current alcohol intake frequency: holidays/special occasions only details: Not while substance use type: does not use well-balanced diet: daily or most days caffeine: Yes Type: coffee eating out: rarely or never during the past year weight has: remained stable what type of physical activity do you participate in: walking frequency: 1-2 times per week duration: 15-30 minutes/day eveline/faith: Scientologist seatbelt use: always do you feel safe at home: Yes additional social history: : [employer] online History 2 Elective abortions Hx Para 1 Spontaneous abortions Hx # Term Pregnancies 1 Ectopic pregnancies Hx # Pregnancies Multiple births # of living children 1 Past Pregnancies Del. Date Name GA/Weeks Outcome Route Bth Weight Infant Gen Labor Lgth Anesthesia Del Locatn Provider FOB 09/23/22 Kate 38 live - full term 7lbs 6oz Male epi dural [facility] Karyna Daily Delivery Date: 04/13/23 Last Updated by: Jenna Ahmadi SM IAL SROM boy kate HPI 30 wk ob Details: GRANT RUVALCABA is a 24 year old who presents for routine OB visit. OB Visit ERMA Calculator Estimated Delivery Date Method Current WG Current Estimate 02/06/25 LMP (Certain) 29w 6d Other Estimates 02/05/25 Ultrasound #1 30w 0d Expected Delivery Route/Plan Labor Preferences- CB/BF classes: no labor support person: Killian labor intervention preferences: [] pain management options preferred: epidural if requested cut cord/dad catch: cord : no PP control planned: discussed discussed possible routes of delivery and associated risks: [] special requests: [] Specific Issue/Plans Covid status: [] Flu vaccine: [] Tdap vaccine: [] Rhogam: NA LARC form signed: yes Problem list reviewed and updated with the most current plan of care details and appropriate ordersplaced. Relevant counseling for the gestational age provided. Continue routine care and follow up unless otherwise noted in visit notes/problem list details Initial Weight: 171 lb Date -?-?-?-?-?-?-?-?-?-?-?-?- EGA Weight BP Urine Prot -?-?-?-?-?-?-?-?-?-?-?-?- Glucose FHR FuHt Pres Dilation -?-?-?-?-?-?-?-?-?-?-?-?- Effaced St Visit Note 07/06/24 -?-?-?-?-?-?-?-?-?-?-?-?- 9w 2d 171 lb (+0 oz) 115/78 -?-?-?-?-?-?-?-?-?-?-?-?- 168 -?-?-?-?-?-?-?-?-?-?-?-?- KW- CRL cons wit h dates. accepts NIPT. 08/07/24 -?-?-?-?-?-?-?-?-?-?-?-?- 13w 6d 168 lb 6 oz (-2 lb 10 oz) 123/82 Negative -?-?-?-?-?-?-?-?-?-?-?-?- Negative 160 -?-?-?-?-?-?-?-?-?-?-?-?- SM- no vb lof so me nausea 09/04/24 -?-?-?-?-?-?-?-?-?-?-?-?- 17w 6d 171 lb 8 oz (+8 oz) 113/79 Negative -?-?-?-?-?-?-?-?-?-?-?-?- Negative 145 -?-?-?-?-?-?-?-?-?-?-?-?- -No VB. Nausea resolved. PCP increased her to 50mg zoloft and needs refill/sent. 10/02/24 -?-?-?-?-?-?-?-?-?-?-?-?- 21w 6d 175 lb 2 oz (+4 lb 2 oz) 110/72 Negative -?-?-?-?-?-?-?-?-?-?-?-?- Negative 146 -?-?-?-?-?-?-?-?-?-?-?-?- -No VB, LOF. G ood FM. 28 wk US w MFM scheduled 10/18/24 -?-?-?-?-?-?-?-?-?-?-?-?- 24w 1d 180 lb 8 oz (+9 lb 8 oz) 118/81 Trace -?-?-?-?-?-?-?-?-?-?-?-?- Negative 153 -?-?-?-?-?-?-?--?-?-?-?-?- -work in ED fo llow up: good FM. Cont with headache, dizziness, chest pain and SOB. Normal CBC, CMP. Very frustrated with ED visit and still not feeling well. Will get stat EKG and CXR today 10/30/24 -?-?-?-?-?-?-?-?-?-?-?-?- 25w 6d 183 lb 2 oz (+12 lb 2 oz) 113/78 Negative -?-?-?-?-?-?-?-?-?-?-?-?- Negative 150 25 -?-?-?-?-?-?-?-?-?-?-?-?- KW- no vb/lof/ct x. good fm. glucose next visit. 11/13/24 -?-?-?-?-?-?-?-?-?-?-?-?- 27w 6d 185 lb 4 oz (+14 lb 4 oz) 112/78 Negative -?-?-?-?-?-?-?-?-?-?-?-?- Negative 143 28 -?-?-?-?-?-?-?-?-?-?-?-?- MH-No VB, LOF. G ood FM. Larc. 28 wk labs pending 11/27/24 -?-?-?-?-?-?-?-?-?-?-?-?- 29w 6d 192 lb (+21 lb) 109/72 Negative -?-?-?-?-?-?-?-?-?-?-?-?- Negative 145 29 -?-?-?-?-?-?-?-?-?-?-?-?- JV- no lof, vagi nal bleeding, or dec fm. no complaints other than a sharp left lower side pain x1 over the weekend. declines tdap. ACOG First Trimester First Trimester: Desire for , Alcohol, Tobacco Cessation, Illicit/Recreational Drug/Substance Use, Intimate Partner Violence, Barriers to care, Unstable Housing, Communication Barriers, Environmental/Work Hazards, Anticipated Course of Care, Toxoplasmosis Precations, Use of Any med ications, Sexual activity, Exercise, Dental Care, Sauna/Hot tub use, Seat Belt use, Childbirth classes/Hospital facilities, Travel, Indications for Ultrasound and Screening for Aneuploidy; Discussed Second Trimester Second Trimester: Signs and Symptoms of Labor, Selecting a care provider, Reproductive Life Planning & Contreception, Care Planning, Depression/Anxiety and Intimate Partner Violence; Discussed Tobacco Cessation Third Trimester Third Trimester: Pain Management Plans, Labor support person(s), Immediate Larc, Movement Monitoring, Signs and Symptoms of Preeclampsia, Labor Signs, Education, Family Medical Leave or Disability Forms, Depression and Intimate Partner Violence; Discussed Tobacco Cessation Results POC Urinalysis 2 Dip (Clinic) Office Urine Glucose Negative Last Edit by Coleen Robles on 11/27/24 13 :25 Office Urine Protein Negative Last Edit by Coleen Robles on 11/27/24 13 :25 Coding Level of Care Code OB Routine Diagnoses 29 weeks gestation of Z3A.29 Weeks of gestation: 29 weeks Supervision of high risk in second trimester O09.92 Trimester: second trimester Obesity affecting in second trimester, unspecified obesity type O99.212 Obesity type affecting : unspecified obesity Trimester: second trimester SOB (shortness of breath) R06.02 headache in second trimester O26.892; R51.9 Trimester: second trimester Anxiety F41.9 Depression, unspecified depression type F32.A Depression Type: unspecified 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al R87.610; R87.810 Assessment and Plan Assessment and Plan (1) : Status: Acute Qualifiers: Weeks of gestation: 29 weeks Qualified Code(s): Z3A.29 - 29 weeks gestation of Comment: (Carrier testing done in prior ), baby low risk, gender female (2) Supervision of high-risk : Status: Acute Qualifiers: Trimester: second trimester Qualified Code(s): O09.92 - Supervision of high risk , unspecified, second trimester Comment: PRR, , ERMA 02/06/25,girl Fatimah PC: Kate, : Killian (3) Obesity affecting : Status: Acute Qualifiers: Obesity type affecting : unspecified obesity Trimester: second trimester Qualified Code(s): O99.212 - Obesity complicating , second trimester Comment: BMI 30.3; HgBA1C w/NOB (4) SOB (shortness of breath): Status: Acute Comment: improved (5) Headache in : Status: Acute Qualifiers: Trimester: second trimester Qualified Code(s): O26.892 - Other specified related conditions, second trimester; R51.9 - Headache, unspecified (6) Anxiety: Status: Acute (7) Depression: Status: Acute Qualifiers: Depression Type: unspecified Qualified Code(s): F32.A - Depression, unspecified Comment: Zoloft/stable (8) 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al: Status: Acute Comment: +02/2022. 12/2022 neg pap and HPV; 2023: neg pap and HPV Orders: Orders POC Urinalysis 2 Dip (Clinic) Today 11/27/24 1333 e Velde DO> Date _ Lnysey Bloom Robert DO [facility] System[facility] Signature: Date (if applicable) CC: ~ [facility]05-20-2025 [facility] [address] [place] [address], [address] [place] [address] OFFICE VISIT Date of Service: 10/30/24 MR#: [id number] Acct: [id number] Name: GRANT RUVALCABA DAVID Rep #: [id number] : 2000 Provider: SPIKE Begum Age/Sex: 24/F Location: [facility] Status: Signed Intake Vital Signs 09/04/24 15:35 10/18/24 11:39 10/30/24 13:25 Height 5 ft 5 ft 1 in 5 ft 1 in Weight: 183 lb 2 oz BMI 34.6 BP 113/78 Intake Visit Reasons: 26wk ob *25w6d Chief Complaint: 26wk OB Coal Sample Tester Required: No Is patient in pain?: No Allergies No Known Allergies Allergy (Verified 10/30/24 13:23) Medications ?Medication ?Instructions ?Recorded ?Confirmed ?Type ferrous sulfate 140 mg (45 mg 140 mg PO DAILY 03/04/22 10/30/24 History iron) tablet,extended release cholecalciferol (vitamin D3) 25 25 mcg PO QDAY 4 10/30/24 History mcg (1,000 unit) capsule docosahexaenoic acid 200 mg mg PO 06/22/24 10/30/24 Hi story capsule ( DHA) sertraline 50 mg tablet (Zoloft) 50 mg PO DAILY #90 ta bs 03/25/25 05/20/25 Rx Last Menstrual Period: 05/02/24 : No Have you fallen in the past year?: No PFSH PFSH Medical History History of asthma Fatigue normal course Vaginal delivery Depression Contact with and (suspected) exposure to other viral communicable diseases Sinusitis Fibromyalgia Back pain Severe headache Family History Grandmother Breast cancer Paternal Aunt Breast cancer Other Migraines Social History adopted: No household members: spouse and children housing: house number of children: 1 current occupation: [employer] current occupational exposures/hazards: No pets and animals: Yes pets and animals: dog(s) history of recent travel: No sexually active: Yes Smoking Status: Never smoker alcohol intake: current alcohol intake frequency: holidays/special occasions only details: Not while substance use type: does not use well-balanced diet: daily or most days caffeine: Yes Type: coffee eating out: rarely or never during the past year weight has: remained stable what type of physical activity do you participate in: walking frequency: 1-2 times per week duration: 15-30 minutes/day eveline/faith: Scientologist seatbelt use: always do you feel safe at home: Yes additional social history: : Killian - [employer] online History 2 Elective abortions Hx Para 1 Spontaneous abortions Hx # Term Pregnancies 1 Ectopic pregnancies Hx # Pregnancies Multiple births # of living children 1 Past Pregnancies Del. Date Name GA/Weeks Outcome Route Bth Weight Infant Gen Labor Lgth Anesthesia Del Locatn Provider FOB 09/23/22 Kate 38 live - full term 7lbs 6oz Male epi dural [facility] Karyna Magaly Killian Delivery Date: 09/23/22 Last Updated by: Jenna Ahmadi SM IAL SROM boy kate HPI 26wk ob *25w6d Details: GRANT RUVALCABA is a 24 year old who presents for routine OB visit. OB Visit ERMA Calculator Estimated Delivery Date Method Current WG Current Estimate 02/06/25 LMP (Certain) 25w 6d Other Estimates 02/05/25 Ultrasound #1 26w 0d Expected Delivery Route/Plan Labor Preferences- CB/BF classes: [] labor support person: [] labor intervention preferences: [] pain management options preferred: [] cut cord/dad catch: [] : [] PP control planned: [] discussed possible routes of delivery and associated risks: [] special requests: [] Specific Issue/Plans Covid status: [] Flu vaccine: [] Tdap vaccine: [] Rhogam: NA LARC form signed: [] Problem list reviewed and updated with the most current plan of care details and appropriate ordersplaced. Relevant counseling for the gestational age provided. Continue routine care and follow up unless otherwise noted in visit notes/problem list details Initial Weight: 171 lb Date -?-?-?-?-?-?-?-?-?-?-?-?- EGA Weight BP Urine Prot -?-?-?-?-?-?-?-?-?-?-?-?- Glucose FHR FuHt Pres Dilation -?-?-?-?-?-?-?-?-?-?-?-?- Effaced St Visit Note 07/06/24 -?-?-?-?-?-?-?-?-?-?-?-?- 9w 2d 171 lb (+0 oz) 115/78 -?-?-?-?-?-?-?-?-?-?-?-?- 168 -?-?-?-?-?-?-?-?-?-?-?-?- KW- CRL cons wit h dates. accepts NIPT. 08/07/24 -?-?-?-?-?-?-?-?-?-?-?-?- 13w 6d 168 lb 6 oz (-2 lb 10 oz) 123/82 Negative -?-?-?-?-?-?-?-?-?-?-?-?- Negative 160 -?-?-?-?-?-?-?-?-?-?-?-?- SM- no vb lof so me nausea 09/04/24 -?-?-?-?-?-?-?-?-?-?-?-?- 17w 6d 171 lb 8 oz (+8 oz) 113/79 Negative -?-?-?-?-?-?-?-?-?-?-?-?- Negative 145 -?-?-?-?-?-?-?-?-?-?-?-?- MH-No VB. Nausea resolved. PCP increased her to 50mg zoloft and needs refill/sent. 10/02/24 -?-?-?-?-?-?-?-?-?-?-?-?- 21w 6d 175 lb 2 oz (+4 lb 2 oz) 110/72 Negative -?-?-?-?-?-?-?-?-?-?-?-?- Negative 146 -?-?-?-?-?-?-?-?-?-?-?-?- MH-No VB, LOF. G ood FM. 28 wk US w MFM scheduled 10/18/24 -?-?-?-?-?-?-?-?-?-?-?-?- 24w 1d 180 lb 8 oz (+9 lb 8 oz) 118/81 Trace -?-?-?-?-?-?-?-?-?-?-?-?- Negative 153 -?-?-?-?-?-?-?-?-?-?-?-?- MH-work in ED fo llow up: good FM. Cont with headache, dizziness, chest pain and SOB. Normal CBC, CMP. Very frustrated with ED visit and still not feeling well. Will get stat EKG and CXR today 10/30/24 -?-?-?--?-?-?-?-?-?-?-?-?- 25w 6d 183 lb 2 oz (+12 lb 2 oz) 113/78 Negative -?-?-?-?-?-?-?-?-?-?-?-?- Negative 150 25 -?-?-?-?-?-?-?-?-?-?-?-?- KW- no vb/lof/ct x. good fm. glucose next visit. ACOG First Trimester First Trimester: Desire for , Alcohol, Tobacco Cessation, Illicit/Recreational Drug/Substance Use, Intimate Partner Violence, Barriers to care, Unstable Housing, Communication Barriers, Environmental/Work Hazards, Anticipated Course of Care, Toxoplasmosis Precations, Use of Any med ications, Sexual activity, Exercise, Dental Care, Sauna/Hot tub use, Seat Belt use, Childbirth classes/Hospital facilities, Travel, Indications for Ultrasound and Screening for Aneuploidy; Discussed Second Trimester Second Trimester: Signs and Symptoms of Labor, Selecting a care provider, Reproductive Life Planning & Contreception, Care Planning, Depression/Anxiety and Intimate Partner Violence; Discussed Tobacco Cessation Third Trimester Third Trimester: Pain Management Plans, Labor support person(s), Immediate Larc, Movement Monitoring, Signs and Symptoms of Preeclampsia, Labor Signs, [place] Education and Depression; Discussed Tobacco Cessation ROS Const Reports system reviewed and no additional complaints, except as documented Eyes Reports system reviewed and no additional complaints, except as documented ENT Reports system reviewed and no additional complaints, except as documented Card Reports system reviewed and no additional complaints, except as documented Resp Reports system reviewed and no additional complaints, except as documented GI Reports system reviewed and no additional complaints, except as documented, Denies nausea and Denies vomiting Reports system reviewed and no additional complaints, except as documented Musc Reports system reviewed and no additional complaints, except as documented Skin/Breast Reports system reviewed and no additional complaints, except as documented Neuro Yes system reviewed and no additional complaints, except as documented Psych Reports system reviewed and no additional complaints, except as documented Endo Reports system reviewed and no additional complaints, except as documented Dario/Lymph Reports system reviewed and no additional complaints, except as documented Aller/Immun Reports system reviewed and no additional complaints, except as documented Exam Const General: cooperative, healthy appearing and no acute distress Orientation: alert, awake and oriented x3 Neck Neck: normal visual inspection and full ROM Resp Effort & Inspection: normal respiratory effort, able to speak in complete sentences and symmetric chest movement GI Inspection: normal to inspection Palpation: soft and other Other: gravid Skin General: no rashes or lesions noted Neuro General: patient alert, patient awake and patient oriented x3 Cognition: normal cognition Speech: speech normal Gait: normal gait Motor: muscle tone normal throughout Extrem General: normal to inspection and full ROM Psych Appearance: grossly normal Mental Status: mental status grossly normal Mood: congruent mood Affect: normal affect Speech and Movement: speech and movement normal Attitude: cooperative Thought Process: normal Thought Content: normal Judgment: judgment good Results POC Urinalysis 2 Dip (Clinic) Office Urine Glucose Negative Last Edit by Clarisse Perry on 10/30/24 13:32 Office Urine Protein Negative Last Edit by Clarisse Perry on 10/30/24 13:32 Coding Level of Care Code Off vis,est,level 3 Diagnoses headache in second trimester O26.892; R51.9 Trimester: second trimester SOB (shortness of breath) R06.02 Chest pain, unspecified type R07.9 Chest pain type: unspecified Low lying placenta, antepartum O44.40 Obesity affecting in second trimester, unspecified obesity type O99.212 Obesity type affecting : unspecified obesity Trimester: second trimester Supervision of high risk in second trimester O09.92 Trimester: second trimester 25 weeks gestation of Z3A.25 Weeks of gestation: 25 weeks Anxiety F41.9 Depression, unspecified depression type F32.A Depression Type: unspecified 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al R87.610; R87.810 Assessment and Plan Assessment and Plan (1) Headache in : Status: Acute Qualifiers: Trimester: second trimester Qualified Code(s): O26.892 - Other specified related conditions, second trimester; R51.9 - Headache, unspecified (2) SOB (shortness of breath): Status: Acute (3) Chest pain: Status: Acute Qualifiers: Chest pain type: unspecified Qualified Code(s): R07.9 - Chest pain, unspecified (4) Low lying placenta, antepartum: Status: Acute Comment: Rpt M US 28 wk (5) Obesity affecting : Status: Acute Qualifiers: Obesity type affecting : unspecified obesity Trimester: second trimester Qualified Code(s): O99.212 - Obesity complicating , second trimester Comment: BMI 30.3; HgBA1C w/NOB (6) Supervision of high-risk : Status: Acute Qualifiers: Trimester: second trimester Qualified Code(s): O09.92 - Supervision of high risk , unspecified, second trimester Comment: PRR, , ERMA 02/06/25,girl Fatimah PC: Kate, : [place] (7) : Status: Acute Qualifiers: Weeks of gestation: 25 weeks Qualified Code(s): Z3A.25 - 25 weeks gestation of Comment: (Carrier testing done in prior ), baby low risk, gender female (8) Anxiety: Status: Acute (9) Depression: Status: Acute Qualifiers: Depression Type: unspecified Qualified Code(s): F32.A - Depression, unspecified Comment: Zoloft/stable (10) 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al: Status: Acute Comment: +02/2022. 12/2022 neg pap and HPV; 2023: neg pap and HPV Orders: Orders POC Urinalysis 2 Dip (Clinic) Today CBC W/Diff, Automated Today O09.92 - Supervision of high risk , unspecified, second trimester Glucose Challenge Gest 1H 50g Today Z13.1 - Encounter for screening for diabetes mellitus HIV Today Syphilis Antibodies Today O09.92 - Supervision of high risk , unspecified, second trimester Plan Details Additional Comments: ACOG trimester education reviewed and updated. see problem list details for updated plan management information and see below for orders placed atthis visit. GA appropriate handout given. Clinical Quality Measures Falls Risk Screening/Assistive Devices Have you fallen in the past year?: No 10/30/24 1342 s CNM> Date _ Sharri Begum CNM Cosigner Signature: Date (if applicable) CC: ~ [facility]05-08-2025 Radiology Diagnostic study note [facility] Imaging Services [address] [place], [place] [id number] Chest PA and Lateral MR#: [id number] Acct: [id number] Name: GRANT RUVALCABA Rep #: [id number] : 2000 F 24 From: Jazzmine Fisher MD PCP: Neda Keith PA-C 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 Study:Chest PA and Lateral Date of Exam: 10/18/24 Exam# [id number] Ordering Dr: Imani Sullivan ACCOUNTANT CLERK ACCOUNTANT CLERK-C EXAM: XR Chest, 2 Views CLINICAL INDICATION: CHEST PAIN TECHNIQUE: Frontal and lateral views of the chest. COMPARISON: No relevant prior studies available. FINDINGS: LUNGS AND PLEURAL SPACES: Unremarkable. No consolidation. No pneumothorax. HEART: Unremarkable. No cardiomegaly. MEDIASTINUM: Unremarkable. Normal mediastinal contour. BONES/JOINTS: Unremarkable. No acute fracture. RAD/Chest PA and Lateral IMPRESSION: No acute cardiopulmonary process. Reading Location: [facility]- CC: SAADIA Sullivan; GERALDINE Keith ~ Telegraph Mechanic: Signed [facility]04-22-2025 Evaluation note* Diagnosis Onset Date Resolution Status Admit Date Anxiety acute October 02 8:30am ASCUS with positive high ris k HPV cervical acute October 02, 2024 8:30am Depression acute October 02 8:30am Obesity affecting acute October 02, 2024 8:30am acute October 02 8:30am Supervision of high-risk acute October 02, 2024 8:30am Low lying placenta, antepartum resol mt October 02, 2024 8:30am Anxiety acute October 18, 2024 11:33am Depression acute October 18, 2024 11:33am Headache in acute October 18, 2024 11:33am Obesity affecting acute October 18, 2024 11:33am acute October 18, 2024 11:33am SOB (shortness of breath) acute October 18, 2024 11:33am Supervision of high-risk acute October 18, 2024 11 :33am Chest pain resolved October 18, 2024 11:33am Low lying placenta, antepartum resol mt October 18, 2024 11:33am Anemia affecting second inactive October 18, 2024 11 :33am Orthostatic lightheadedness inactive October 18, 2024 11:33am Anxiety acute October 30, 2024 1:21pm ASCUS with positive high ris k HPV cervical acute October 30, 2024 1 :21pm Depression acute October 30, 2024 1:21pm Headache in acute October 30, 2024 1:21pm Obesity affecting acute October 30, 2024 1:21pm acute October 30, 2024 1:21pm SOB (shortness of breath) acute October 30, 2024 1:21pm Supervision of high-risk acute October 30, 2024 1 :21pm Chest pain resolved October 30, 2024 1:21pm Low lying placenta, antepartum resol mt October 30, 2024 1:21pm Anxiety acute November 13, 2024 1:02pm Depression acute November 13, 2024 1:02pm Headache in acute Nov 1:02pm Obesity affecting acute November 13, 2024 1:02pm acute November 13, 2024 1:02pm Supervision of high-risk acute November 13, 2024 1 :02pm Low lying placenta, antepartum resol mt November 13, 2024 1:02pm Anxiety acute November 27 1:17pm ASCUS with positive high ris k HPV cervical acute November 27, 2024 1:17pm Depression acute November 27 1:17pm Headache in acute Nov 1:17pm Obesity affecting acute November 27, 2024 1:17pm acute November 27 1:17pm SOB (shortness of breath) acute November 27, 2024 1:17pm Supervision of high-risk acute November 27, 2024 1:17pm Anxiety acute December 05 9:40pm Obesity affecting acute December 05, 2024 9:40pm acute December 05 9:40pm Supervision of high-risk acute December 05, 2024 9:40pm Trauma during acute J une 2024 9:40pm Anxiety acute December 11, 2024 1:36pm Depression acute December 11, 2024 1:36pm Headache in acute Dec 1:36pm Obesity affecting acute December 11, 2024 1:36pm acute December 11, 2024 1:36pm SOB (shortness of breath) acute December 11, 2024 1:36pm Supervision of high-risk acute December 11, 2024 1 :36pm Trauma during acute J [email or web address] 1:36pm Anxiety acute December 25 1:51pm ASCUS with positive high ris k HPV cervical acute December 25, 2024 1:51pm Depression acute December 25 1:51pm Headache in acute Dec 1:51pm Obesity affecting acute December 25, 2024 1:51pm acute December 25 1:51pm SOB (shortness of breath) acute December 25, 2024 1:51pm Supervision of high-risk acute December 25, 2024 1:51pm Trauma during acute J [email or web address] 1:51pm Anxiety acute January 07 2:21pm ASCUS with positive high ris k HPV cervical acute January 07, 2025 2:21pm Depression acute January 07 2:21pm Headache in acute Dec 2:21pm Obesity affecting acute January 07, 2025 2:21pm acute January 07 2:21pm SGA (small for gestational a ge), , affecting care of mother, antepartum acute January 07, 2025 2:21pm SOB (shortness of breath) acute January 07, 2025 2:21pm Supervision of high-risk acute January 07, 2025 2:21pm Trauma during acute J 2024 2:21pm [facility] Work Phone: 1(620) 685-429104-22-2025 Evaluation note* Diagnosis Onset Date Resolution Status Admit Date Anxiety acute October 02 8:30am ASCUS with positive high ris k HPV cervical acute October 02, 2024 8:30am Depression acute October 02 8:30am Obesity affecting acute October 02, 2024 8:30am acute October 02 8:30am Supervision of high-risk acute October 02, 2024 8:30am Low lying placenta, antepartum resol mt October 02, 2024 8:30am Anxiety acute October 18, 2024 11:33am Depression acute October 18, 2024 11:33am Headache in acute October 18, 2024 11:33am Obesity affecting acute October 18, 2024 11:33am acute October 18, 2024 11:33am SOB (shortness of breath) acute October 18, 2024 11:33am Supervision of high-risk acute October 18, 2024 11 :33am Chest pain resolved October 18, 2024 11:33am Low lying placenta, antepartum resol mt October 18, 2024 11:33am Anemia affecting second inactive October 18, 2024 11 :33am Orthostatic lightheadedness inactive October 18, 2024 11:33am Anxiety acute October 30, 2024 1:21pm ASCUS with positive high ris k HPV cervical acute October 30, 2024 1 :21pm Depression acute October 30, 2024 1:21pm Headache in acute October 30, 2024 1:21pm Obesity affecting acute October 30, 2024 1:21pm acute October 30, 2024 1:21pm SOB (shortness of breath) acute October 30, 2024 1:21pm Supervision of high-risk acute October 30, 2024 1 :21pm Chest pain resolved October 30, 2024 1:21pm Low lying placenta, antepartum resol mt October 30, 2024 1:21pm Anxiety acute November 13, 2024 1:02pm Depression acute November 13, 2024 1:02pm Headache in acute Nov 1:02pm Obesity affecting acute November 13, 2024 1:02pm acute November 13, 2024 1:02pm Supervision of high-risk acute November 13, 2024 1 :02pm Low lying placenta, antepartum resol mt November 13, 2024 1:02pm Anxiety acute November 27 1:17pm ASCUS with positive high ris k HPV cervical acute November 27, 2024 1:17pm Depression acute November 27 1:17pm Headache in acute Nov 1:17pm Obesity affecting acute November 27, 2024 1:17pm acute November 27 1:17pm SOB (shortness of breath) acute November 27, 2024 1:17pm Supervision of high-risk acute November 27, 2024 1:17pm Anxiety acute December 05 9:40pm Obesity affecting acute December 05, 2024 9:40pm acute December 05 9:40pm Supervision of high-risk acute December 05, 2024 9:40pm Trauma during acute 2024 9:40pm Anxiety acute December 11, 2024 1:36pm Depression acute December 11, 2024 1:36pm Headache in acute Dec 1:36pm Obesity affecting acute December 11, 2024 1:36pm acute December 11, 2024 1:36pm SOB (shortness of breath) acute December 11, 2024 1:36pm Supervision of high-risk acute December 11, 2024 1 :36pm Trauma during acute 2024 1:36pm Anxiety acute December 25 1:51pm ASCUS with positive high ris k HPV cervical acute December 25, 2024 1:51pm Depression acute December 25 1:51pm Headache in acute Dec 1:51pm Obesity affecting acute December 25, 2024 1:51pm acute December 25 1:51pm SOB (shortness of breath) acute December 25, 2024 1:51pm Supervision of high-risk acute December 25, 2024 1:51pm Trauma during acute 2024 1:51pm Anxiety acute January 07 2:21pm ASCUS with positive high ris k HPV cervical acute January 07, 2025 2:21pm Depression acute January 07 2:21pm Headache in acute Dec 2:21pm Obesity affecting acute January 07, 2025 2:21pm acute January 07 2:21pm SGA (small for gestational a ge), , affecting care of mother, antepartum acute January 07, 2025 2:21pm SOB (shortness of breath) acute January 07, 2025 2:21pm Supervision of high-risk acute January 07, 2025 2:21pm Trauma during acute J 2024 2:21pm Anxiety acute January 16 1:37pm ASCUS with positive high ris k HPV cervical acute January 16, 2025 1:37pm Depression acute January 16 1:37pm Headache in acute Aug ust 2024 1:37pm Obesity affecting acute January 16, 2025 1:37pm acute January 16 1:37pm SGA (small for gestational a ge), , affecting care of mother, antepartum acute January 16, 2025 1:37pm SOB (shortness of breath) acute January 16, 2025 1:37pm Supervision of high-risk acute January 16, 2025 1:37pm Trauma during acute A ugust 2024 1:37pm [facility] Work Phone: 1([phone]) 994-382103-25-2025 Evaluation note* Diagnosis Onset Date Resolution Status Admit Date Anxiety acute September 04 3:28pm Depression acute September 04 3:28pm Obesity affecting acute September 04, 2024 3:28pm acute September 04 3:28pm Supervision of high-risk acute September 04, 2024 3:28pm Anxiety acute October 02 8:30am ASCUS with positive high ris k HPV cervical acute October 02, 2024 8:30am Depression acute October 02 8:30am Obesity affecting acute October 02, 2024 8:30am acute October 02 8:30am Supervision of high-risk acute October 02, 2024 8:30am Low lying placenta, antepartum resol mt October 02, 2024 8:30am Anxiety acute October 18, 2024 11:33am Depression acute October 18, 2024 11:33am Headache in acute October 18, 2024 11:33am Obesity affecting acute October 18, 2024 11:33am acute October 18, 2024 11:33am SOB (shortness of breath) acute October 18, 2024 11:33am Supervision of high-risk acute October 18, 2024 11 :33am Chest pain resolved October 18, 2024 11:33am Low lying placenta, antepartum resol mt October 18, 2024 11:33am Anemia affecting second inactive October 18, 2024 11 :33am Orthostatic lightheadedness inactive October 18, 2024 11:33am Anxiety acute October 30, 2024 1:21pm ASCUS with positive high ris k HPV cervical acute October 30, 2024 1 :21pm Depression acute October 30, 2024 1:21pm Headache in acute October 30, 2024 1:21pm Obesity affecting acute October 30, 2024 1:21pm acute October 30, 2024 1:21pm SOB (shortness of breath) acute October 30, 2024 1:21pm Supervision of high-risk acute October 30, 2024 1 :21pm Chest pain resolved October 30, 2024 1:21pm Low lying placenta, antepartum resol mt October 30, 2024 1:21pm Anxiety acute November 13, 2024 1:02pm Depression acute November 13, 2024 1:02pm Headache in acute Nov 1:02pm Obesity affecting acute November 13, 2024 1:02pm acute November 13, 2024 1:02pm Supervision of high-risk acute November 13, 2024 1 :02pm Low lying placenta, antepartum resol mt November 13, 2024 1:02pm Anxiety acute November 27 1:17pm ASCUS with positive high ris k HPV cervical acute November 27, 2024 1:17pm Depression acute November 27 1:17pm Headache in acute Nov 1:17pm Obesity affecting acute November 27, 2024 1:17pm acute November 27 1:17pm SOB (shortness of breath) acute November 27, 2024 1:17pm Supervision of high-risk acute November 27, 2024 1:17pm Anxiety acute December 05 9:40pm Obesity affecting acute December 05, 2024 9:40pm acute December 05 9:40pm Supervision of high-risk acute December 05, 2024 9:40pm Trauma during acute J une 2024 9:40pm Anxiety acute December 11, 2024 1:36pm Depression acute December 11, 2024 1:36pm Headache in acute Dec 1:36pm Obesity affecting acute December 11, 2024 1:36pm acute December 11, 2024 1:36pm SOB (shortness of breath) acute December 11, 2024 1:36pm Supervision of high-risk acute December 11, 2024 1 :36pm Trauma during acute J [email or web address] 1:36pm [facility] Work Phone: 1(254) 325-433003-25-2025 Evaluation note* Diagnosis Onset Date Resolution Status Admit Date Anxiety acute September 04 3:28pm Depression acute September 04 3:28pm Obesity affecting acute September 04, 2024 3:28pm acute September 04 3:28pm Supervision of high-risk acute September 04, 2024 3:28pm Anxiety acute October 02 8:30am ASCUS with positive high ris k HPV cervical acute October 02, 2024 8:30am Depression acute October 02 8:30am Obesity affecting acute October 02, 2024 8:30am acute October 02 8:30am Supervision of high-risk acute October 02, 2024 8:30am Low lying placenta, antepartum resol mt October 02, 2024 8:30am Anxiety acute October 18, 2024 11:33am Depression acute October 18, 2024 11:33am Headache in acute October 18, 2024 11:33am Obesity affecting acute October 18, 2024 11:33am acute October 18, 2024 11:33am SOB (shortness of breath) acute October 18, 2024 11:33am Supervision of high-risk acute October 18, 2024 11 :33am Chest pain resolved October 18, 2024 11:33am Low lying placenta, antepartum resol mt October 18, 2024 11:33am Anemia affecting second inactive October 18, 2024 11 :33am Orthostatic lightheadedness inactive October 18, 2024 11:33am Anxiety acute October 30, 2024 1:21pm ASCUS with positive high ris k HPV cervical acute October 30, 2024 1 :21pm Depression acute October 30, 2024 1:21pm Headache in acute October 30, 2024 1:21pm Obesity affecting acute October 30, 2024 1:21pm acute October 30, 2024 1:21pm SOB (shortness of breath) acute October 30, 2024 1:21pm Supervision of high-risk acute October 30, 2024 1 :21pm Chest pain resolved October 30, 2024 1:21pm Low lying placenta, antepartum resol mt October 30, 2024 1:21pm Anxiety acute November 13, 2024 1:02pm Depression acute November 13, 2024 1:02pm Headache in acute Nov 1:02pm Obesity affecting acute November 13, 2024 1:02pm acute November 13, 2024 1:02pm Supervision of high-risk acute November 13, 2024 1 :02pm Low lying placenta, antepartum resol mt November 13, 2024 1:02pm Anxiety acute November 27 1:17pm ASCUS with positive high ris k HPV cervical acute November 27, 2024 1:17pm Depression acute November 27 1:17pm Headache in acute Nov 1:17pm Obesity affecting acute November 27, 2024 1:17pm acute November 27 1:17pm SOB (shortness of breath) acute November 27, 2024 1:17pm Supervision of high-risk acute November 27, 2024 1:17pm Anxiety acute December 05 9:40pm Obesity affecting acute December 05, 2024 9:40pm acute December 05 9:40pm Supervision of high-risk acute December 05, 2024 9:40pm Trauma during acute J une 2024 9:40pm Anxiety acute December 11, 2024 1:36pm Depression acute December 11, 2024 1:36pm Headache in acute Dec 1:36pm Obesity affecting acute December 11, 2024 1:36pm acute December 11, 2024 1:36pm SOB (shortness of breath) acute December 11, 2024 1:36pm Supervision of high-risk acute December 11, 2024 1 :36pm Trauma during acute 2024 1:36pm Anxiety acute December 25 1:51pm ASCUS with positive high ris k HPV cervical acute December 25, 2024 1:51pm Depression acute December 25 1:51pm Headache in acute Dec 1:51pm Obesity affecting acute December 25, 2024 1:51pm acute December 25 1:51pm SOB (shortness of breath) acute December 25, 2024 1:51pm Supervision of high-risk acute December 25, 2024 1:51pm Trauma during acute J isis 2024 1:51pm [facility] Work Phone: 1([phone]) 482-824102-25-2025 Evaluation note* Diagnosis Onset Date Resolution Status Admit Date Anxiety acute August 07, 2024 2:06pm ASCUS with positive high ris k HPV cervical acute August 07, 2 025 2:06pm Depression acute August 07, 2024 2:06pm Obesity affecting acute August 07, 2024 2:06pm acute August 07, 2024 2:06pm Supervision of high-risk acute August 07, 2 025 2:06pm Anxiety acute September 04 3:28pm Depression acute September 04 3:28pm Obesity affecting acute September 04, 2024 3:28pm acute September 04 3:28pm Supervision of high-risk acute September 04, 2024 3:28pm Anxiety acute October 02 8:30am ASCUS with positive high ris k HPV cervical acute October 02, 2024 8:30am Depression acute October 02 8:30am Obesity affecting acute October 02, 2024 8:30am acute October 02 8:30am Supervision of high-risk acute October 02, 2024 8:30am Low lying placenta, antepartum resol mt October 02, 2024 8:30am Anxiety acute October 18, 2024 11:33am Depression acute October 18, 2024 11:33am Headache in acute October 18, 2024 11:33am Obesity affecting acute October 18, 2024 11:33am acute October 18, 2024 11:33am SOB (shortness of breath) acute October 18, 2024 11:33am Supervision of high-risk acute October 18, 2024 11 :33am Chest pain resolved October 18, 2024 11:33am Low lying placenta, antepartum resol mt October 18, 2024 11:33am Anemia affecting second inactive October 18, 2024 11 :33am Orthostatic lightheadedness inactive October 18, 2024 11:33am Anxiety acute October 30, 2024 1:21pm ASCUS with positive high ris k HPV cervical acute October 30, 2024 1 :21pm Depression acute October 30, 2024 1:21pm Headache in acute October 30, 2024 1:21pm Obesity affecting acute October 30, 2024 1:21pm acute October 30, 2024 1:21pm SOB (shortness of breath) acute October 30, 2024 1:21pm Supervision of high-risk acute October 30, 2024 1 :21pm Chest pain resolved October 30, 2024 1:21pm Low lying placenta, antepartum resol mt October 30, 2024 1:21pm Anxiety acute November 13, 2024 1:02pm Depression acute November 13, 2024 1:02pm Headache in acute Nov 1:02pm Obesity affecting acute November 13, 2024 1:02pm acute November 13, 2024 1:02pm Supervision of high-risk acute November 13, 2024 1 :02pm Low lying placenta, antepartum resol mt November 13, 2024 1:02pm [facility] Work Phone: [phone]) 397-140702-25-2025 Evaluation note* Diagnosis Onset Date Resolution Status Admit Date Anxiety acute August 07, 2024 2:06pm ASCUS with positive high ris k HPV cervical acute August 07, 2 025 2:06pm Depression acute August 07, 2024 2:06pm Obesity affecting acute August 07, 2024 2:06pm acute August 07, 2024 2:06pm Supervision of high-risk acute August 07, 025 2:06pm Anxiety acute September 04 3:28pm Depression acute September 04 3:28pm Obesity affecting acute September 04, 2024 3:28pm acute September 04 3:28pm Supervision of high-risk acute September 04, 2024 3:28pm Anxiety acute October 02 8:30am ASCUS with positive high ris k HPV cervical acute October 02, 2024 8:30am Depression acute October 02 8:30am Low lying placenta, antepartum acute October 02, 2024 8:30am Obesity affecting acute October 02, 2024 8:30am acute October 02 8:30am Supervision of high-risk acute October 02, 2024 8:30am Anxiety acute October 18, 2024 11:33am Depression acute October 18, 2024 11:33am Headache in acute October 18, 2024 11:33am Low lying placenta, antepartum acute October 18, 2024 11:33am Obesity affecting acute October 18, 2024 11:33am acute October 18, 2024 11:33am SOB (shortness of breath) acute October 18, 2024 11:33am Supervision of high-risk acute October 18, 2024 11 :33am Chest pain resolved October 18, 2024 11:33am Anemia affecting second inactive October 18, 2024 11 :33am Orthostatic lightheadedness inactive October 18, 2024 11:33am Anxiety acute October 30, 2024 1:21pm ASCUS with positive high ris k HPV cervical acute October 30, 2024 1 :21pm Depression acute October 30, 2024 1:21pm Headache in acute October 30, 2024 1:21pm Low lying placenta, antepartum acute October 30, 2024 1:21pm Obesity affecting acute October 30, 2024 1:21pm acute October 30, 2024 1:21pm SOB (shortness of breath) acute October 30, 2024 1:21pm Supervision of high-risk acute October 30, 2024 1 :21pm Chest pain resolved October 30, 2024 1:21pm Anxiety acute November 13, 2024 1:02pm Depression acute November 13, 2024 1:02pm Headache in acute Nov 1:02pm Low lying placenta, antepartum acute November 13, 2024 1:02pm Obesity affecting acute November 13, 2024 1:02pm acute November 13, 2024 1:02pm Supervision of high-risk acute November 13, 2024 1 :02pm [facility] Work Phone: [phone] Evaluation note* Diagnosis Onset Date Resolution Status Admit Date Anxiety acute August 07, 2024 2:06pm ASCUS with positive high ris k HPV cervical acute August 07, 2 025 2:06pm Depression acute August 07, 2024 2:06pm Obesity affecting acute August 07, 2024 2:06pm acute August 07, 2024 2:06pm Supervision of high-risk acute August 07, 2 025 2:06pm Anxiety acute September 04 3:28pm Depression acute September 04 3:28pm Obesity affecting acute September 04, 2024 3:28pm acute September 04 3:28pm Supervision of high-risk acute September 04, 2024 3:28pm Anxiety acute October 02 8:30am ASCUS with positive high ris k HPV cervical acute October 02, 2024 8:30am Depression acute October 02 8:30am Obesity affecting acute October 02, 2024 8:30am acute October 02 8:30am Supervision of high-risk acute October 02, 2024 8:30am Low lying placenta, antepartum resol mt October 02, 2024 8:30am Anxiety acute October 18, 2024 11:33am Depression acute October 18, 2024 11:33am Headache in acute October 18, 2024 11:33am Obesity affecting acute October 18, 2024 11:33am acute October 18, 2024 11:33am SOB (shortness of breath) acute October 18, 2024 11:33am Supervision of high-risk acute October 18, 2024 11 :33am Chest pain resolved October 18, 2024 11:33am Low lying placenta, antepartum resol mt October 18, 2024 11:33am Anemia affecting second inactive October 18, 2024 11 :33am Orthostatic lightheadedness inactive October 18, 2024 11:33am Anxiety acute October 30, 2024 1:21pm ASCUS with positive high ris k HPV cervical acute October 30, 2024 1 :21pm Depression acute October 30, 2024 1:21pm Headache in acute October 30, 2024 1:21pm Obesity affecting acute October 30, 2024 1:21pm acute October 30, 2024 1:21pm SOB (shortness of breath) acute October 30, 2024 1:21pm Supervision of high-risk acute October 30, 2024 1 :21pm Chest pain resolved October 30, 2024 1:21pm Low lying placenta, antepartum resol mt October 30, 2024 1:21pm Anxiety acute November 13, 2024 1:02pm Depression acute November 13, 2024 1:02pm Headache in acute Nov 1:02pm Obesity affecting acute November 13, 2024 1:02pm acute November 13, 2024 1:02pm Supervision of high-risk acute November 13, 2024 1 :02pm Low lying placenta, antepartum resol mt November 13, 2024 1:02pm Anxiety acute November 27 1:17pm ASCUS with positive high ris k HPV cervical acute November 27, 2024 1:17pm Depression acute November 27 1:17pm Headache in acute Nov 1:17pm Obesity affecting acute November 27, 2024 1:17pm acute November 27 1:17pm SOB (shortness of breath) acute November 27, 2024 1:17pm Supervision of high-risk acute November 27, 2024 1:17pm [facility] Work Phone: [phone] 738-800201-24-2025 Evaluation note* Diagnosis Onset Date Resolution Status Admit Date Anxiety acute July 06, 2024 1:02pm ASCUS with positive high ris k HPV cervical acute July 06 1:02pm Depression acute July 06, 2024 1:02pm Obesity affecting acute July 06, 2024 1:02pm acute July 06, 2024 1:02pm Supervision of high-risk acute July 06 1:02pm Anxiety acute August 07, 2024 2:06pm ASCUS with positive high ris k HPV cervical acute August 07, 2 025 2:06pm Depression acute August 07, 2024 2:06pm Obesity affecting acute August 07, 2024 2:06pm acute August 07, 2024 2:06pm Supervision of high-risk acute August 07, 2 025 2:06pm Anxiety acute September 04 3:28pm Depression acute September 04 3:28pm Obesity affecting acute September 04, 2024 3:28pm acute September 04 3:28pm Supervision of high-risk acute September 04, 2024 3:28pm Anxiety acute October 02 8:30am ASCUS with positive high ris k HPV cervical acute October 02, 2024 8:30am Depression acute October 02 8:30am Low lying placenta, antepartum acute October 02, 2024 8:30am Obesity affecting acute October 02, 2024 8:30am acute October 02 8:30am Supervision of high-risk acute October 02, 2024 8:30am Anemia affecting second acute October 18, 2024 11 :33am Anxiety acute October 18, 2024 11:33am Chest pain acute October 18, 2024 11:33am Depression acute October 18, 2024 11:33am Headache in acute October 18, 2024 11:33am Low lying placenta, antepartum acute October 18, 2024 11:33am Obesity affecting acute October 18, 2024 11:33am Orthostatic lightheadedness acute October 18, 2024 11:33am acute October 18, 2024 11:33am SOB (shortness of breath) acute October 18, 2024 11:33am Supervision of high-risk acute October 18, 2024 11 :33am [facility] Work Phone: 1(454) 243-106001-24-2025 Evaluation note* Diagnosis Onset Date Resolution Status Admit Date Anxiety acute July 06, 2024 1:02pm ASCUS with positive high ris k HPV cervical acute July 06 1:02pm Depression acute July 06, 2024 1:02pm Obesity affecting acute July 06, 2024 1:02pm acute July 06, 2024 1:02pm Supervision of high-risk acute July 06 1:02pm Anxiety acute August 07, 2024 2:06pm ASCUS with positive high ris k HPV cervical acute August 07, 2 025 2:06pm Depression acute August 07, 2024 2:06pm Obesity affecting acute August 07, 2024 2:06pm acute August 07, 2024 2:06pm Supervision of high-risk acute August 07, 2 025 2:06pm Anxiety acute September 04 3:28pm Depression acute September 04 3:28pm Obesity affecting acute September 04, 2024 3:28pm acute September 04 3:28pm Supervision of high-risk acute September 04, 2024 3:28pm Anxiety acute October 02 8:30am ASCUS with positive high ris k HPV cervical acute October 02, 2024 8:30am Depression acute October 02 8:30am Low lying placenta, antepartum acute October 02, 2024 8:30am Obesity affecting acute October 02, 2024 8:30am acute October 02 8:30am Supervision of high-risk acute October 02, 2024 8:30am Anxiety acute October 18, 2024 11:33am Chest pain acute October 18, 2024 11:33am Depression acute October 18, 2024 11:33am Headache in acute October 18, 2024 11:33am Low lying placenta, antepartum acute October 18, 2024 11:33am Obesity affecting acute October 18, 2024 11:33am acute October 18, 2024 11:33am SOB (shortness of breath) acute October 18, 2024 11:33am Supervision of high-risk acute October 18, 2024 11 :33am Anemia affecting second inactive October 18, 2024 11 :33am Orthostatic lightheadedness inactive October 18, 2024 11:33am Anxiety acute October 30, 2024 1:21pm ASCUS with positive high ris k HPV cervical acute October 30, 2024 1 :21pm Chest pain acute October 30, 2024 1:21pm Depression acute October 30, 2024 1:21pm Headache in acute October 30, 2024 1:21pm Low lying placenta, antepartum acute October 30, 2024 1:21pm Obesity affecting acute October 30, 2024 1:21pm acute October 30, 2024 1:21pm SOB (shortness of breath) acute October 30, 2024 1:21pm Supervision of high-risk acute October 30, 2024 1 :21pm [facility] [employer] Work Phone: 1(134) 560-950209-05-2023 NoteHNO ID: [id number] Author: Linh Alexandra OD Service: ? Author Type: SHIFT MANAGER Type: Progress Notes Filed: 02/15/2023 3:54 PM [...] in 1 year or sooner as needed Linh Alexandra OD February 15, 2023 3:53 [facility]09-05-2023 History of Present illness Narrative* Linh Alexandra, SCAR - 02/15/2023 3:53 PM EDT 1. Amblyopia suspect, left eye 2. Anisometropia 3. Accommodative insufficiency BCVA: 20/30+ left eye Patient has +0.75 anisometropia Unsure if vision has always been reduced left eye? No history of patching + hx of bifocal use Finalized spec rx Okay to continue with current glasses Good ocular health Follow-up in 1 year or sooner as needed Linh Alexandra OD February 15, 2023 3:53 PM [facility] NotePap Smear Specimen AdequacyJuly 2022 11:59pmComment.Satisfactory for evaluation. Endocervical and/or squamous metaplasticcells (endocervical component)are present.[facility] INTERFACED A#[id number] [facility] CenterComment on above:Satisfactory for evaluation. Endocervical and/or squamous metaplasticcells (endocervical component)are present.11-11-2022 NotePap Smear QC ReviewJune 2022 2:18pm Comment.Joana Ambriz, Supervisory Seasoner Hand (ASCP)[facility] INTERFACED A#[id number] [facility] Of [facility] Medical CenterComment on above:Joana Ambriz, Supervisory Seasoner Hand (ASCP)09-25-[address] Jones [facility] September 25, 2022 10:03am Note Date/Time September 25, 2022 10: 03am [facility] Medical Records Department [address] [place] [address] Progress Note - OBGYN 09/25/22 1003 MR#: [id number] Acct: [id number] Name: GRANT ARMSTRONG Rep #:[id number] : 2000 22 From: Lynsey Ambrocio DO PCP: Care Physician,No Primary Status :ADM IN Location: [id number] Subjective Subjective Patient doing well without complaints. Tolerating PO. Ambulating and voiding without difficulty. Feeding well. Denies chest pain, shortness of breath, calf pain/swelling, fevers, chills, lightheadedness. Objective Data Objective Data Vital Signs: Vital Signs Temp Pulse Resp BP Pulse Ox O2 Del Method 97.8 F 94 16 126/80 H 97 Room Air 09/25/22 08:29 09/25/22 08:29 09/25/22 08:29 09/25/22 08:29 09/25/22 08:29 09/25/22 08:29 Oxygen Delivery Method Room Air Weight: 190 lb Body Mass Index (BMI) 37.0 Intake & Output: Intake and Output for Last 24 Hours 09/23/22 09/24/22 09/25/22 23:59 23:59 23:59 Intake Total 3189.17 / 3189.17 250 / 250 Output Total 400 / 400 1050 / 1050 Balance 2789.17 / 2789.17 -800 / -800 Lab / Micro Data Result Diagrams: 09/23/22 09:10 ROS Constitutional Constitutional: Denies chills, fatigue, fever(s), poor appetite or weakness Eyes Eyes: Denies blurry vision, change in vision, seeing flashes or spots in vision ENT HEENT: Denies dizziness, headache(s), loss taste/smell or sore throat Cardiovascular Cardiovascular: Denies chest pain, dizziness, dyspnea, irregular heart rhythm, palpitations or rapid heart rate Respiratory/Chest Respiratory/Chest: Denies chest tightness, cough, dyspnea or breast pain Gastrointestinal Gastrointestinal: Denies abdominal pain, constipation or vomiting Genitourinary Genitourinary: Denies dysuria or flank pain Musculoskeletal Musculoskeletal: Denies difficulty walking, joint pain, limited range of motion or numbness Neurologic Neurologic: Denies abnormal movements, abnormal speech, dizziness, numbness, seizure-like activity or syncope Psychiatric Psychiatric: Denies anxiety, behavioral changes, change in appetite, confusion, depression or suicidal thoughts Physical Exam Const alert, oriented x3 and no apparent distress General Appearance: cooperative and comfortable Resp normal respiratory effort Cardio regular rate GI normal to inspection, nondistended, normoactive bowel sounds GI Narrative: uterus is firm below umbilicus Palpation: soft Back/Spine no CVA tenderness and thoraco-lumbar ROM normal Extremity normal to inspection, no clubbing, cyanosis or edema, no calf tenderness and no pedal edema Psych mental status grossly normal, thought process normal, cooperative, affect normal, speech normal, activity/motor behavior normal, denies homicidal ideationand denies suicidal ideation Assessment & Plan (1) Vaginal delivery: COMMENT: MARGOTH IAL SROM boy kate PLAN: s/p PPD # 2 1. routine post delivery care 2. breast feeding- support given 3. rh positive 4. rubella immune 5. ready for dc to home today 09/25/22 1003 <Electronically signed by Lynsey Ambrocio DO> Cosigner Signature (if applicable): CC: ~ Signed [facility] Work Phone: 1(334) 345-863104-14-[address] Jones [facility] September 24, 2022 7:54am Note Date/Time September 24, 2022 7:5 4am [facility] Medical Records Department [address] [place] [address] Progress Note - OBGYN 09/24/22 0753 MR#: [id number] Acct: [id number] Name: GRANT ARMSTRONG Rep #:[id number] : 2000 22 From: Lynsey Ambrocio DO PCP: Care Physician,No Primary Status :ADM IN Location: IC817-2 Objective Data Objective Data Patient doing well without complaints. Tolerating PO. Ambulating and voiding without difficulty. Feeding well. Denies chest pain, shortness of breath, calf pain/swelling, fevers, chills, lightheadedness. wants to go back to sleep and has no further questions Vital Signs: Vital Signs Temp Pulse Resp BP Pulse Ox O2 Del Method 97.7 F L 87 16 114/82 H 99 Room Air 09/24/22 03:58 09/24/22 03:58 09/24/22 03:58 09/24/22 03:58 09/24/22 03:58 09/24/22 03:58 Oxygen Delivery Method Room Air Weight: 190 lb Body Mass Index (BMI) 37.0 Intake & Output: Intake and Output for Last 24 Hours 09/22/22 09/23/22 09/24/22 23:59 23:59 23:59 Intake Total 3189.17 / 3189.17 250 / 250 Output Total 400 / 400 1050 / 1050 Balance 2789.17 / 2789.17 -800 / -800 Lab / Micro Data Result Diagrams: 09/23/22 09:10 Labs: Laboratory Results - last 24 hr 09/23/22 08:00: Vag Amniotic Fld Detect POSITIVE H 09/23/22 09:10: WBC 12.3 H, RBC 4.01 L, Hgb 12.9, Hct 37.9, MCV 94.5, MCH 32.2 H, MCHC 34.0, RDW Std Deviation 43.7, RDW Coeff of Richard 12.5, Plt Count 175, MPV 12.5 H, Immature Gran % (Auto) 0.600, Neut % (Auto) 79.2 H, Lymph % (Auto) 10.0 L, [place] % (Auto) 8.9, Eos % (Auto) 1.1, Baso % (Auto) 0.2, Absolute Neuts (auto)9.8 H, Absolute Lymphs (auto) 1.23, Nucleated RBC % 0 09/23/22 09:10: Blood Type O POSITIVE, Antibody Screen NEGATIVE 09/23/22 09:10: Syphilis Total Ab Non-reactive ROS Constitutional Constitutional: Denies chills, fatigue, fever(s), poor appetite or weakness Eyes Eyes: Denies blurry vision, change in vision, seeing flashes or spots in vision ENT HEENT: Denies dizziness, headache(s), loss taste/smell or sore throat Cardiovascular Cardiovascular: Denies chest pain, dizziness, dyspnea, irregular heart rhythm, palpitations or rapid heart rate Respiratory/Chest Respiratory/Chest: Denies chest tightness, cough, dyspnea or breast pain Gastrointestinal Gastrointestinal: Denies abdominal pain, constipation or vomiting Genitourinary Genitourinary: Denies dysuria or flank pain Musculoskeletal Musculoskeletal: Denies difficulty walking, joint pain, limited range of motion or numbness Neurologic Neurologic: Denies abnormal movements, abnormal speech, dizziness, numbness, seizure-like activity or syncope Psychiatric Psychiatric: Denies anxiety, behavioral changes, change in appetite, confusion, depression or suicidal thoughts Physical Exam Const alert, oriented x3 and no apparent distress General Appearance: cooperative and comfortable Resp normal respiratory effort Cardio regular rate GI normal to inspection, nondistended, normoactive bowel sounds GI Narrative: uterus is firm below umbilicus Palpation: soft Back/Spine no CVA tenderness and thoraco-lumbar ROM normal Extremity normal to inspection, no clubbing, cyanosis or edema, no calf tenderness and no pedal edema Psych mental status grossly normal, thought process normal, cooperative, affect normal, speech normal, activity/motor behavior normal, denies homicidal ideationand denies suicidal ideation Assessment & Plan (1) Vaginal delivery: COMMENT: SM IAL SROM boy kate PLAN: s/p PPD # 1 1. routine post delivery care 2. breast feeding- support given 3. rh positive 4. rubella immune 09/24/22 0754 <Electronically signed by Lynsey Ambrocio DO> Cosigner Signature (if applicable): CC: ~ Signed [facility] Work Phone: 1(330) 785-586104-13-[address] Carr [facility] September 23, 2022 8:40pm Note Date/Time September 23, 2022 8:2 6pm [facility] Medical Records Department [address] [place] [address] Instructions for Home/Discharge Instructions 09/23/222024 MR#: [id number] Acct: [id number] Name: GRANT ARMSTRONG Rep #:[id number] : 2000 From: Karyna paulino MD PCP: Care Physician,No Primary Status :ADM IN Discharge Instructions Diet Discharge Diet: No restrictions Activity Discharge Activity: Return to Normal Activity, May Drive, May Shower and May Take a Tub Bath (in 4 weeks) May resume sexual activity in: 6-8 weeks (after seen by OB provider) Weight Bearing Status: Full weight bearing Lifting Restrictions: none Dressing / Incision Call your doctor if you observe: Fever of 101 or Higher, Inability to urinate, Using more than 1 pad per hour (for more than 2 hours in a row or more), Shortness of breath, Dizziness, Chest pain and - (headache not controlled with tylenol, change in vision) Follow Up Care When: in 6 weeks for visit, call the office to make the appointment. If you had elevated blood pressures call the office to be seen within 1 week. Test Results: Test results from this visit will be discussed in further detail at your follow- up appointment, if applicable. Discharge Plan Admission Admit Date/Time: 09/23/22 08:20 Attending Provider: Lynsey Ambrocio Primary Care Provider: Care Physician,No Primary Discharge Orders/Prescriptions Prescriptions: No Action folic acid 800 mcg tablet 0.8 mg PO DAILY ferrous sulfate 140 mg (45 mg iron) tablet extended release 140 mg PO DAILY cephalexin 500 mg capsule 500 mg PO Q6 10 Days Qty: 40 0RF sertraline [Zoloft] 25 mg tablet 25 mg PO DAILY Qty: 90 1RF Referrals / Follow Up: Care Physician,No Primary [Primary Care Provider] - 09/23/222039<Electronically signed by Karyna Carr MD>Karyna Carr MD CC: No Primary Care Physician ~ Signed [facility] Work Phone: 1(706) 843-479004-13-2023 Procedure [facility] 09-23-[address] Carr [facility] September 23, 2022 5:13pm Note Date/Time September 23, 2022 5:1 3pm [facility] Medical Records Department [address] [place] [address] Progress Note 09/23/221709 MR#: [id number] Acct: [id number] Name: GRANT ARMSTRONG Rep #:[id number] : 2000 From: Karyna paulino MD PCP: Care Physician,No Primary Status :ADM IN Location: [address] Progress Note patient making change now 6 cm current tracing: FHT: 120 Moderate variability reactive prolonged decel followed by early decelerations category II tracing [place]: q 2-3 Contractions reviewed tracing abnormalities since last note: fluid bolus, position changes, pitocin off A/P: exp mangement, making change overall reassuring 09/23/221712 <Electronically signed by Karyna Carr MD> Karyna Carr MD Cosigner Signature (if applicable): CC: ~ Signed [facility] Work Phone: 1(456) 385-753004-13-2023 History and physical note Author Dr. Carr [facility] September 23, 2022 5:10pm Note Date/Time September 23, 2022 5:0 8pm [facility] Medical Records Department [address] [place] [address] H&P Exam - [employer] 09/23/22 1706 MR#: [id number] Acct: [id number] Name: GRANT ARMSTRONG Rep #:[id number] : 2000 From: Karyna paulino MD PCP: Care Physician,No Primary Status :ADM IN Location: [address] HPI - General General Date of Admission: 09/23/22 HPI Narrative GRANT ARMSTRONG, is a 22 F who presents IAL SROM clear fluid 6 am 1-2 cm dilated Maternal Data Information ERMA Calculator Estimated Delivery Date Method Current WG Current Estimate 10/05/22 Ultrasound #1 38w 2d Other Estimates 10/18/22 LMP (Certain) 36w 3d PFSH PFSH Medical History (Updated 09/23/22 @ 17:[address] Karyna Carr MD) Back pain Contact with and (suspected) exposure to other viral communicable diseases Depression Fibromyalgia Severe headache Sinusitis Home Medications ferrous sulfate 140 mg (45 mg iron) tablet,extended release 140 mg PO DAILY 03/04/22 [History Last Taken 09/22/22 08:00] folic acid 800 mcg tablet 0.8 mg PO DAILY 03/04/22 [History Last Taken 09/22/22 08:00] cephalexin 500 mg capsule 500 mg PO Q6 uti 10 days #40 caps 09/15/22 [Rx Last Taken 09/22/22 20:45] sertraline 25 mg tablet (Zoloft) 25 mg PO DAILY #90 tabs 09/22/22 [Rx Last Taken 09/22/22 08:00] Allergy/AdvReac Type Severity Reaction Status Date / Time No Known Allergies Allergy Verified 09/23/22 00:33 Family History Grandmother Breast cancer Paternal Other Migraines Social History adopted: No household members: significant other housing: house current occupational status: employed 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 current occupational exposures/hazards: No pets and animals: Yes pets and animals: dog(s) history of recent travel: No sexually active: Yes Smoking Status: Never smoker alcohol intake: former details: occasional substance use type: does not use well-balanced diet: about half the time caffeine: Yes Type: carbonated beverages Number of servings: 1 eating out: 1-3 times/week during the past year weight has: remained stable what type of physical activity do you participate in: walking frequency: 1-2 times per week duration: 15-30 minutes/day eveline/faith: Scientologist seatbelt use: always do you feel safe at home: Yes additional social history: Boyfriend- Killian - [employer] History 1 Elective abortions Hx Para 0 Spontaneous abortions Hx # Term Pregnancies Ectopic pregnancies Hx # Pregnancies Multiple births # of living children Visit Details Expected Delivery Route/Plan Labor Preferences- CB/BF classes: [] labor support person: [] labor intervention preferences: [] pain management options preferred: [] cut cord/dad catch: [] : [] PP control planned: [] discussed possible routes of delivery and associated risks: [] special requests: [] Plans Covid status: [] Flu vaccine: [] Tdap vaccine: 08/31/2022 Rhogam: [] LARC form signed: [] Problem list reviewed and updated with the most current plan of care details and appropriate orders placed. Relevant counseling for the gestational age provided. Continue routine care and follow up unless otherwise noted in visit notes/problem list details OB Flowsheet Initial Weight: Not Recorded Date -?-?-?-?-?-?-?-?-?-?-?-?- EGA Weight BP Urine Prot -?-?-?-?-?-?-?-?-?-?-?-?- Glucose FHR FuHt Pres Dilation -?-?-?-?-?-?-?-?-?-?-?-?- Effaced St Visit Note 03/11/22 -?-?-?-?-?-?-?-?-?-?-?-?- 10w 2d 135 lb 101/69 -?-?-?-?-?-?-?-?-?-?-?-?- 169 -?-?-?-?-?-?-?-?-?-?-?-?- JV- new erma give n, CRL off by 2 weeks 03/29/22 -?-?-?-?-?-?-?-?-?-?-?-?- 12w 6d 137 lb 114/74 Negative -?-?-?-?-?-?-?-?-?-?-?-?- Negative 157 -?-?-?-?-?-?-?-?-?-?-?-?- SM- no vb lof cr maping doing well SM- no vb lof cramping doing well 04/28/22 -?-?-?-?-?-?-?-?-?-?-?-?- 17w 1d 141 lb 112/78 Negative -?-?-?-?-?-?-?-?-?-?-?-?- Negative 153 -?-?-?-?-?-?-?-?-?-?-?-?- -No VB, crampi ng. Doing well 05/27/22 -?-?-?-?-?-?-?-?-?-?-?-?- 21w 2d 144 lb 122/78 Negative -?-?-?-?-?-?-?-?-?-?-?-?- Negative 155 -?-?-?-?-?-?-?-?--?-?-?-?- JV- pt is doing well on 25 mg of zoloft but wonders if more may be better. She will double up on zoloft this week and call if wants the 50's. recommend no intercourse until low lying placenta is resolved. 06/22/22 -?-?-?-?-?-?-?-?-?-?-?-?- 25w 0d 151 lb 6 oz 122/83 Nega tive -?-?-?-?-?-?-?-?-?-?-?-?- Negative 140 -?-?-?-?-?-?-?-?-?-?-?-?- JV- gct pending today. tried 50 mg of zoloft and did not feel any better or worse so went back to 25 mg. recommend sticking with the 50 s and possibly increasing to 100 or 75 a s needed. 07/06/22 -?-?-?-?-?-?-?-?-?-?-?-?- 27w 0d 153 lb 9 oz 99/66 Nega tive -?-?-?-?-?-?-?-?-?-?-?-?- Negative 148 0 -?-?-?-?-?-?-?-?-?-?-?-?- -follow up fro m WP visit 2 nights ago with CTX. No cervical change. No reg CTX today. Reviewed PTL signs. 07/16/22 -?-?-?-?-?-?-?-?-?-?-?-?- 28w 3d 160 lb 6 oz 120/81 Nega tive -?-?-?-?-?-?-?-?-?-?-?-?- Negative 150 28 -?-?-?-?-?-?-?-?-?-?-?-?- JV- no lof, vagi nal bleeding, or dec fm. PTL precautions again discussed. 07/30/22 -?-?-?-?-?-?-?-?-?-?-?-?- 30w 3d 164 lb 4 oz 108/76 Nega tive -?-?-?-?-?-?-?-?-?-?-?-?- Negative 155 30 -?-?-?-?-?-?-?-?-?-?-?-?- JV- no lof, vagi nal bleeding, or dec fm. larc signed. pt will think about tdap. has mary y shower this weekend, 08/12/22 -?-?-?-?-?-?-?-?-?--?-?-?- 32w 2d 167 lb 8 oz 109/74 Nega tive -?-?-?-?-?-?-?-?-?-?-?-?- Negative 150 32 -?-?-?-?-?-?-?-?-?-?-?-?- LC- no vb/ctx/lo f. good fm. 08/25/22 -?-?-?-?-?-?-?-?-?-?-?-?- 34w 1d 173 lb 4 oz 116/81 Nega tive -?-?-?-?-?-?-?-?-?-?-?-?- Negative 134 34 Cephalic 0 -?-?-?-?--?-?-?-?-?-?-?-?- 0 -2 JV-pt comp lains of pressure and round ligament pain. PTL precautions discussed. 09/10/22 -?-?-?-?-?-?-?-?-?-?-?-?- 36w 3d 183 lb 131/84 -?-?-?-?-?-?-?-?-?-?-?-?- 135 37 Cephalic 0.5 -?-?-?-?-?-?-?-?-?-?-?-?- 0 -3 SM- no vb lof good fm n oregular ctx 09/14/22 -?-?-?-?-?-?-?-?-?-?-?-?- 37w 0d 184 lb 6 oz 132/94 Trac e -?-?-?-?-?-?-?-?-?-?-?-?- Negative 142 37 Cephalic 0 .5 -?-?-?-?-?-?-?-?-?-?-?-?- -3 -No VB , LOF. Good FM. Headache X 2 days. No vision changes. Edema hands/feet. To for Pre E evaluation 09/21/22 -?-?-?-?-?-?-?-?-?-?-?-?- 38w 0d 190 lb 2 oz 118/83 1+ -?--?-?-?-?-?-?-?-?-?-?-?- Negative 130 38 Cephalic 1 .5 -?-?-?-?-?-?-?-?-?-?-?-?- 60 -2 SM- 3+ moira ma taking antibiotics for uti no vb lof good fm no regular ctx membranes swept, check cbc cmp urine protein labs now 09/23/22 -?-?-?-?-?-?-?-?-?-?-?-?- 38w 2d 190 lb 122/80 128/86 132/90 141/99 161/91 160/93 144/92 144/87 142/84 126/79 133/73 124/81 112/65 108/65 126/76 124/85 -?-?-?-?-?-?-?-?-?-?-?-?- -?-?-?-?-?-?-?-?-?-?-?-?- NST FHR Rate Baby A Baseline: 120 Variability:: Moderate Accelerations:: 15 x 15 Decelerations:: None NST Reactive:: Yes FHR Category:: Category I Uterine Activity:: q3-5 ROS Constitutional Constitutional: Reports systems reviewed and no addt'l complaints, except as documented ENT HEENT: Reports systems reviewed and no addt'l complaints, except as documented Cardiovascular Cardiovascular: Reports systems reviewed and no addt'l complaints, except as documented Respiratory/Chest Respiratory/Chest: Reports systems reviewed and no addt'l complaints, except as documented Gastrointestinal Gastrointestinal: Reports systems reviewed and no addt'l complaints, except as documented and nausea; Denies abdominal pain Genitourinary Genitourinary: Reports systems reviewed and no addt'l complaints, except as documented, contractions Details: present and frequency (regular ) and movement Details: present Musculoskeletal Musculoskeletal: Reports systems reviewed and no addt'l complaints, except as documented Integumentary Integumentary: Reports as per HPI Neurologic Neurologic: Reports systems reviewed and no addt'l complaints, except as documented Endocrine Endocrinology: Reports systems reviewed and no addt'l complaints, except as documented Vital Signs Vital Signs Vital Signs: 09/23/22 07:55 09/23/22 07:55 09/23/22 07:54 Temperature Temperature Source Pulse Rate 93 Blood Pressure 122/80 H BP Systolic 122 BP Diastolic 80 Pulse Ox 99 09/23/22 07:55 09/23/22 07:55 09/23/22 09:33 Temperature 97.3 F L Temperature Source Temporal Pulse Rate Blood Pressure 128/86 H BP Systolic 128 BP Diastolic 86 Pulse Ox 09/23/22 09:33 09/23/22 11:19 09/23/22 11:19 Temperature Temperature Source Pulse Rate 87 98 Blood Pressure 132/90 H BP Systolic 132 BP Diastolic 90 Pulse Ox 09/23/22 11:43 09/23/22 11:43 09/23/22 12:42 Temperature 98.8 F Temperature Source Tympanic Pulse Rate Blood Pressure 141/99 H BP Systolic 141 BP Diastolic 99 Pulse Ox 09/23/22 12:42 09/23/22 12:59 09/23/22 12:59 Temperature Temperature Source Pulse Rate 85 87 Blood Pressure 161/91 H BP Systolic 161 BP Diastolic 91 Pulse Ox 09/23/22 13:14 09/23/22 13:14 09/23/22 12:59 Temperature Temperature Source Tympanic Pulse Rate 90 Blood Pressure 160/93 H BP Systolic 160 BP Diastolic 93 Pulse Ox 09/23/22 13:42 09/23/22 13:42 09/23/22 12:59 Temperature 98.8 F Temperature Source Pulse Rate 100 Blood Pressure BP Systolic BP Diastolic Pulse Ox 88 09/23/22 13:42 09/23/22 13:42 09/23/22 13:45 Temperature Temperature Source Pulse Rate 93 Blood Pressure 144/92 H BP Systolic 144 BP Diastolic 92 Pulse Ox 100 09/23/22 13:45 09/23/22 13:47 09/23/22 13:47 Temperature Temperature Source Pulse Rate 94 104 H Blood Pressure BP Systolic BP Diastolic Pulse Ox 100 09/23/22 13:51 09/23/22 13:51 09/23/22 13:52 Temperature Temperature Source Pulse Rate 98 95 Blood Pressure 144/87 H BP Systolic 144 BP Diastolic 87 Pulse Ox 09/23/22 13:52 09/23/22 13:56 09/23/22 13:56 Temperature Temperature Source Pulse Rate 94 Blood Pressure 142/84 H BP Systolic 142 BP Diastolic 84 Pulse Ox 100 09/23/22 13:57 09/23/22 13:57 09/23/22 14:02 Temperature Temperature Source Pulse Rate 113 H Blood Pressure 126/79 H BP Systolic 126 BP Diastolic 79 Pulse Ox 100 09/23/22 14:02 09/23/22 14:06 09/23/22 14:06 Temperature Temperature Source Pulse Rate 90 95 Blood Pressure 133/73 H BP Systolic 133 BP Diastolic 73 Pulse Ox 09/23/22 13:45 09/23/22 13:55 09/23/22 14:11 Temperature Temperature Source Pulse Rate Blood Pressure 124/81 H BP Systolic 124 BP Diastolic 81 Pulse Ox 100 100 09/23/22 14:11 09/23/22 14:31 09/23/22 14:31 Temperature Temperature Source Pulse Rate 96 96 Blood Pressure 112/65 BP Systolic 112 BP Diastolic 65 Pulse Ox 09/23/22 14:48 09/23/22 14:48 09/23/22 14:48 Temperature Temperature Source Tympanic Pulse Rate 95 Blood Pressure 108/65 BP Systolic 108 BP Diastolic 65 Pulse Ox 09/23/22 14:48 09/23/22 14:48 09/23/22 15:56 Temperature 98.4 F Temperature Source Pulse Rate Blood Pressure 126/76 H BP Systolic 126 BP Diastolic 76 Pulse Ox 99 09/23/22 15:56 09/23/22 15:59 09/23/22 15:59 Temperature Temperature Source Pulse Rate 100 116 H Blood Pressure BP Systolic BP Diastolic Pulse Ox 100 09/23/22 15:56 09/23/22 15:56 09/23/22 15:56 Temperature 98.4 F Temperature Source Temporal Pulse Rate Blood Pressure BP Systolic BP Diastolic Pulse Ox 100 09/23/22 17:03 09/23/22 17:03 09/23/22 17:03 Temperature Temperature Source Pulse Rate 107 H Blood Pressure 124/85 H BP Systolic 124 BP Diastolic 85 Pulse Ox 100 09/23/22 17:03 09/23/22 17:03 09/23/22 17:03 Temperature 98.6 F Temperature Source Temporal Pulse Rate Blood Pressure BP Systolic BP Diastolic Pulse Ox 100 Weight Weight: 190 lb Body Mass Index (BMI) 37.0 Physical Exam Const alert, oriented x3 and healthy appearing Constitutional Narrative: uncomfortable with contractions HEENT normocephalic and moist oral mucous membranes Head and Scalp: atraumatic Neck full ROM, no lymphadenopathy, supple and thyroid normal General: trachea midline Thyroid: thyroid normal Lymph Lymphatic: no lymphadenopathy noted Chest inspection of chest normal Resp normal respiratory effort Cardio regular rate GI normal to inspection, nondistended, normoactive bowel sounds, soft to palpation and non-tender Inspection: gravid external exam normal Bimanual Exam - Vag & Uterus: uterus non-tender Manual OB Exam: estimated gestational size appropriate, presentation cephalic, dilated, effaced and station Extremity normal to inspection General Extremity: Negative for edema Skin no rashes or lesions noted Neuro deep tendon reflexes 2+ bilaterally Motor Exam: strength 5/5 throughout and clonus absent Psych mental status grossly normal Labs Labs Labs: Blood Type O POSITIVE Antibody Screen NEGATIVE Hct 37.9 % (37-47) Hgb 12.9 g/dL (12.0-15.0) Syphilis Total Ab Non-reactive Rubella IgG Antibody Reactive (Nonreactive) Hep Bs Antigen Non-Reactive (Nonreactive) Chlamydia DNA (SHANITA) Negative (Negative) Neisseria gonorrhoeae DNA (SHANITA) Negative (Negative) HIV 1&2 Antibody Non-Reactive (Nonreactive) Glucose 1 Hr 50 gm 115 mg/dL (70-140) Miscellaneous Test Assessment & Plan (1) Asthma: COMMENT: exercise induced (2) : QUALIFIERS: Weeks of gestation: 38 weeks Qualified Code(s): Z3A.38 - 38 weeks gestation of COMMENT: GBS neg, Anatomy US normal. carrier neg. , genetic testing low risk (3) Supervision of high risk , antepartum: COMMENT: PRR s, boy, EzraEDD 10/18/22, Boyfriend- Killian (4) 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al: COMMENT: Repeat pap in 1 year (5) Depression affecting : COMMENT: on zoloft 50 mg (6) UTI (urinary tract infection) during : COMMENT: 09/15 (7) SROM (spontaneous rupture of membranes): PLAN: Plan Patient presents IAL, plan expectant management for , pitocin planned due to minimal cervical change Pain management: plans epidural. GBS neg. Management of any complications: none I have reviewed the [facility] and made any clinically relevant updates. 09/23/22 1710 <Electronically signed by Karyna Carr MD> Cosigner Signature (if applicable): CC: Dr. Karyna Carr MD; No Primary Care Physician~ Signed [facility] Work Phone: [phone] NotePap Smear Specimen AdequacySeptember 2021 1:19pmComment.Satisfactory for evaluation. Endocervical and/or squamous metaplasticcells (endocervical component)are present.[facility]ED A#[id number] County Medical CenterComment on above:Satisfactory for evaluation. Endocervical and/or squamous metaplasticcells (endocervical component)are present.Evaluation note* Diagnosis Onset Date Resolution Status Asthma acute Fibromyalgia acute acute Supervision of high risk , antepartum acute [facility] Work Phone: Evaluation note* Diagnosis Onset Date Resolution Status Asthma acute Fibromyalgia acute acute Supervision of high risk , antepartum acute 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al acute Asthma acute Fibromyalgia acute acute Supervision of high risk , antepartum acute acute Supervision of high risk , antepartum acute 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al acute Asthma acute Depression affecting acute Fibromyalgia acute acute Supervision of high risk , antepartum acute 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al acute Asthma acute Depression affecting acute Fibromyalgia acute acute Supervision of high risk , antepartum acute Marginal placenta previa res olved [facility] Work Phone: Evaluation note* Diagnosis Onset Date Resolution Status acute Supervision of high risk , antepartum acute 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al acute Asthma acute Depression affecting acute Fibromyalgia acute acute Supervision of high risk , antepartum acute 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al acute Asthma acute Depression affecting acute Fibromyalgia acute acute Supervision of high risk , antepartum acute Marginal placenta previa res olved acute Supervision of high risk , antepartum acute Threatened labor acu te 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al acute Asthma acute Depression affecting acute Fibromyalgia acute acute Supervision of high risk , antepartum acute Threatened labor acu te 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al acute Asthma acute Depression affecting acute Fibromyalgia acute acute Supervision of high risk , antepartum acute Threatened labor acu te Asthma acute Depression affecting acute acute Supervision of high risk , antepartum acute [facility] Work Phone: Evaluation note* Diagnosis Onset Date Resolution Status 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al acute Asthma acute Depression affecting acute Fibromyalgia acute acute Supervision of high risk , antepartum acute 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al acute Asthma acute Depression affecting acute Fibromyalgia acute acute Supervision of high risk , antepartum acute Marginal placenta previa res olved acute Supervision of high risk , antepartum acute Threatened labor res olved 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al acute Asthma acute Depression affecting acute Fibromyalgia acute acute Supervision of high risk , antepartum acute Threatened labor res olved 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al acute Asthma acute Depression affecting acute Fibromyalgia acute acute Supervision of high risk , antepartum acute Threatened labor res olved Asthma acute Depression affecting acute acute Supervision of high risk , antepartum acute Decreased movement res olved 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al acute Asthma acute Depression affecting acute Fibromyalgia acute acute Supervision of high risk , antepartum acute Decreased movement res olved Threatened labor res olved 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al acute Asthma acute Depression affecting acute Fibromyalgia acute acute Supervision of high risk , antepartum acute Depression affecting acute Elevated blood pressure affe cting in third trimester, antepartum acute acute Proteinuria affecting in third trimester acute Supervision of high risk , antepartum acute [facility] Work Phone: Evaluation note* Diagnosis Onset Date Resolution Status 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al acute Asthma acute Depression affecting acute Fibromyalgia acute acute Supervision of high risk , antepartum acute 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al acute Asthma acute Depression affecting acute Fibromyalgia acute acute Supervision of high risk , antepartum acute Marginal placenta previa res olved acute Supervision of high risk , antepartum acute Threatened labor res olved 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al acute Asthma acute Depression affecting acute Fibromyalgia acute acute Supervision of high risk , antepartum acute Threatened labor res olved 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al acute Asthma acute Depression affecting acute Fibromyalgia acute acute Supervision of high risk , antepartum acute Threatened labor res olved Asthma acute Depression affecting acute acute Supervision of high risk , antepartum acute Decreased movement res olved 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al acute Asthma acute Depression affecting acute Fibromyalgia acute acute Supervision of high risk , antepartum acute Decreased movement res olved Threatened labor res olved 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al acute Asthma acute Depression affecting acute Fibromyalgia acute acute Supervision of high risk , antepartum acute Depression affecting acute Elevated blood pressure affe cting in third trimester, antepartum acute acute Proteinuria affecting in third trimester acute Supervision of high risk , antepartum acute Flank pain in patient acute Proteinuria affecting in third trimester acute [facility] Work Phone: Evaluation note* Diagnosis Onset Date Resolution Status 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al acute Asthma acute Depression affecting acute Fibromyalgia acute acute Supervision of high risk , antepartum acute 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al acute Asthma acute Depression affecting acute Fibromyalgia acute acute Supervision of high risk , antepartum acute Marginal placenta previa res olved acute Supervision of high risk , antepartum acute Threatened labor res olved 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al acute Asthma acute Depression affecting acute Fibromyalgia acute acute Supervision of high risk , antepartum acute Threatened labor res olved 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al acute Asthma acute Depression affecting acute Fibromyalgia acute acute Supervision of high risk , antepartum acute Threatened labor res olved Asthma acute Depression affecting acute acute Supervision of high risk , antepartum acute Decreased movement res olved 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al acute Asthma acute Depression affecting acute Fibromyalgia acute acute Supervision of high risk , antepartum acute Decreased movement res olved Threatened labor res olved 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al acute Asthma acute Depression affecting acute Fibromyalgia acute acute Supervision of high risk , antepartum acute Depression affecting acute acute Supervision of high risk , antepartum acute Elevated blood pressure affe cting in third trimester, antepartum resolved Proteinuria affecting in third trimester resolved Flank pain in patient resolved Proteinuria affecting in third trimester resolved 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al acute Asthma acute Depression affecting acute Fibromyalgia acute acute Supervision of high risk , antepartum acute UTI (urinary tract infection) during acute [facility] Work Phone: Evaluation note* Diagnosis Onset Date Resolution Status 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al acute Depression affecting acute Asthma resolved Fibromyalgia resolved Marginal placenta previa res olved resolved Supervision of high risk , antepartum resolved resolved Supervision of high risk , antepartum resolved Threatened labor res olved 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al acute Depression affecting acute Asthma resolved Fibromyalgia resolved resolved Supervision of high risk , antepartum resolved Threatened labor res olved 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al acute Depression affecting acute Asthma resolved Fibromyalgia resolved resolved Supervision of high risk , antepartum resolved Threatened labor res olved Depression affecting acute Asthma resolved resolved Supervision of high risk , antepartum resolved Decreased movement res olved 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al acute Depression affecting acute Asthma resolved Decreased movement res olved Fibromyalgia resolved resolved Supervision of high risk , antepartum resolved Threatened labor res olved 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al acute Depression affecting acute Asthma resolved Fibromyalgia resolved resolved Supervision of high risk , antepartum resolved Depression affecting acute Elevated blood pressure affe cting in third trimester, antepartum resolved resolved Proteinuria affecting in third trimester resolved Supervision of high risk , antepartum resolved Flank pain in patient resolved Proteinuria affecting in third trimester resolved 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al acute Depression affecting acute Asthma resolved Fibromyalgia resolved resolved Supervision of high risk , antepartum resolved UTI (urinary tract infection) during resolved False labor after 37 completed weeks of gestation acute 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al acute Depression affecting acute Vaginal delivery acute Asthma resolved Fibromyalgia resolved resolved SROM (spontaneous rupture of membranes) resolved Supervision of high risk , antepartum resolved UTI (urinary tract infection) during resolved [facility] Work Phone: Evaluation note* Diagnosis Onset Date Resolution Status 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al acute Depression affecting acute Asthma resolved Fibromyalgia resolved Marginal placenta previa res olved resolved Supervision of high risk , antepartum resolved resolved Supervision of high risk , antepartum resolved Threatened labor res olved 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al acute Depression affecting acute Asthma resolved Fibromyalgia resolved resolved Supervision of high risk , antepartum resolved Threatened labor res olved 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al acute Depression affecting acute Asthma resolved Fibromyalgia resolved resolved Supervision of high risk , antepartum resolved Threatened labor res olved Depression affecting acute Asthma resolved resolved Supervision of high risk , antepartum resolved Decreased movement res olved 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al acute Depression affecting acute Asthma resolved Decreased movement res olved Fibromyalgia resolved resolved Supervision of high risk , antepartum resolved Threatened labor res olved 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al acute Depression affecting acute Asthma resolved Fibromyalgia resolved resolved Supervision of high risk , antepartum resolved Depression affecting acute Elevated blood pressure affe cting in third trimester, antepartum resolved resolved Proteinuria affecting in third trimester resolved Supervision of high risk , antepartum resolved Flank pain in patient resolved Proteinuria affecting in third trimester resolved 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al acute Depression affecting acute Asthma resolved Fibromyalgia resolved resolved Supervision of high risk , antepartum resolved UTI (urinary tract infection) during resolved 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al acute Depression affecting acute Vaginal delivery acute Asthma resolved Fibromyalgia resolved resolved SROM (spontaneous rupture of membranes) resolved Supervision of high risk , antepartum resolved UTI (urinary tract infection) during resolved [facility] Work Phone: Evaluation note* Diagnosis Onset Date Resolution Status 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al acute Depression affecting acute Asthma resolved Fibromyalgia resolved resolved Supervision of high risk , antepartum resolved Threatened labor res olved Depression affecting acute Asthma resolved resolved Supervision of high risk , antepartum resolved Decreased movement res olved 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al acute Depression affecting acute Asthma resolved Decreased movement res olved Fibromyalgia resolved resolved Supervision of high risk , antepartum resolved Threatened labor res olved 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al acute Depression affecting acute Asthma resolved Fibromyalgia resolved resolved Supervision of high risk , antepartum resolved Depression affecting acute Elevated blood pressure affe cting in third trimester, antepartum resolved resolved Proteinuria affecting in third trimester resolved Supervision of high risk , antepartum resolved Flank pain in patient resolved Proteinuria affecting in third trimester resolved 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al acute Depression affecting acute Asthma resolved Fibromyalgia resolved resolved Supervision of high risk , antepartum resolved UTI (urinary tract infection) during resolved 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al acute Depression affecting acute Asthma resolved Fibromyalgia resolved resolved SROM (spontaneous rupture of membranes) resolved Supervision of high risk , antepartum resolved UTI (urinary tract infection) during resolved 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al acute Depression affecting acute [facility] Work Phone: Evaluation note* Diagnosis Onset Date Resolution Status 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al acute Depression affecting acute Asthma resolved Fibromyalgia resolved resolved Supervision of high risk , antepartum resolved Depression affecting acute Elevated blood pressure affe cting in third trimester, antepartum resolved resolved Proteinuria affecting in third trimester resolved Supervision of high risk , antepartum resolved Flank pain in patient resolved Proteinuria affecting in third trimester resolved 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al acute Depression affecting acute Asthma resolved Fibromyalgia resolved resolved Supervision of high risk , antepartum resolved UTI (urinary tract infection) during resolved 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al acute Depression affecting acute Asthma resolved Fibromyalgia resolved resolved SROM (spontaneous rupture of membranes) resolved Supervision of high risk , antepartum resolved UTI (urinary tract infection) during resolved 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al acute Depression affecting acute [facility] Work Phone: Evaluation note* Diagnosis Amblyopia suspect, left eye- Primary Anisometropia Accommodative insufficiency Presbyopia [facility] Diagnosis Onset Date Resolution Status Sinusitis noneactive Pelvic pain acute [facility] Work Phone: Hospital Discharge instructions Additional Instructions Keep next follow up appointment.[facility] Work Phone: Progress note Author Dr. Carr [facility] September 14, 2022 1:15pm Note Date/Time September 14, 2022 1:15 pm [facility] Medical Records Department [address] [place] [address] OB Triage Progress Note 09/14/22 1314 MR#: [id number] Acct: [id number] Name: GRANT ARMSTRONG Rep #:[id number] : 2000 From: Karyna paulino MD PCP: Care Physician,No Primary Status :REG CLI Y DOS: Location: [place] [address] Progress Notes Date of Service: 09/14/22 Progress Note: Patient presents for triage evaluation secondary to elevated blood pressure FHT: 140 Moderate variability reactive no decelerations category I tracing [place]: no regular Contractions Assessment and plan: elevated blood pressure- repeat bps all WNL, labs WNL negative proteinuria. review precautions, fu in office as scheudled Reactive NST, reassuring maternal and status patient discharged to home to follow-up as scheduled. See problem list details for additional plan information. Laboratory Studies: Laboratory Tests 09/14/22 09/14/22 09/14/22 Range/Units 12:35 12:35 12:35 WBC 9.7 (4.4-11.0) K/mm3 RBC 3.86 L (4.2-5.4) M/mm3 Hgb 12.5 (12.0-15.0) g/dL Hct 36.1 L (37-47) % MCV 93.5 (81-99) fL MCH 32.4 H (27.0-32.0) pg MCHC 34.6 (32-36) g/dL RDW Std Deviation 42.6 (35.1-43.9) fl RDW Coeff of Richard 12.5 (11.6-14.6) % Plt Count 190 (150-450) K/mm3 MPV 11.9 (6.2-12.0) fl Creatinine 0.43 L (0.55-1.02) mg/dL Estim Creat Clear Calc 146.16 ml/min Est GFR (MDRD) Af Amer 233 (>60) mL/min Est GFR (MDRD) Non-Af 193 (>60) mL/min Uric Acid 6.0 (2.6-6.0) mg/dL AST 12 L (15-37) U/L ALT 21 (13-56) U/L U Random Total Protein 20.9 H (<11.9) mg/dL Urine Creatinine 105.00 (NO RANGE EST.) mg/dL Protein/Creatinin Ratio 199 (0-200) mg/g CRE Charges/Coding Procedures Urinary/Genital [id number]: [id number] non-stress test Interp 09/14/22 1315 <Electronically signed by Karyna atkinson MD> Date _ Karyna Carr MD Cosigner Signature (if applicable): Date CC: Dr. Karyna Carr MD; No Primary Care Physician ~ Signed [facility] Work Phone: Progress note Author Sharri Begum [facility] Note Date/Time October 30, 2024 1:42p m [facility] [address], [address] [place] [address] OFFICE VISIT Date of Service: 10/30/24 MR#: [id number] Acct: [id number] Name: GRANT RUVALCABA Rep #: [id number] : 2000 Provider: SPIKE Begum Age/Sex: 24/F Location: [facility] Status: Signed Intake Vital Signs 09/04/24 15:35 10/18/24 11:39 10/30/24 13:25 Height 5 ft 5 ft 1 in 5 ft 1 in Weight: 183 lb 2 oz BMI 34.6 BP 113/78 Intake Visit Reasons: 26wk ob *25w6d Chief Complaint: 26wk OB Coal Sample Tester Required: No Is patient in pain?: No Allergies No Known Allergies Allergy (Verified 10/30/24 13:23) Medications ?Medication ?Instructions ?Recorded ?Confirmed ?Type ferrous sulfate 140 mg (45 mg 140 mg PO DAILY 03/04/22 10/30/24 History iron) tablet,extended release cholecalciferol (vitamin D3) 25 25 mcg PO QDAY 4 10/30/24 History mcg (1,000 unit) capsule docosahexaenoic acid 200 mg mg PO 06/22/24 10/30/24 Hi story capsule ( DHA) sertraline 50 mg tablet (Zoloft) 50 mg PO DAILY #90 ta bs 09/04/24 10/30/24 Rx Last Menstrual Period: 05/02/24 : No Have you fallen in the past year?: No PFSH PFSH Medical History History of asthma Fatigue normal course Vaginal delivery Depression Contact with and (suspected) exposure to other viral communicable diseases Sinusitis Fibromyalgia Back pain Severe headache Family History Grandmother Breast cancer Paternal Aunt Breast cancer Other Migraines Social History adopted: No household members: spouse and children housing: house number of children: 1 current occupation: [employer] current occupational exposures/hazards: No pets and animals: Yes pets and animals: dog(s) history of recent travel: No sexually active: Yes Smoking Status: Never smoker alcohol intake: current alcohol intake frequency: holidays/special occasions only details: Not while substance use type: does not use well-balanced diet: daily or most days caffeine: Yes Type: coffee eating out: rarely or never during the past year weight has: remained stable what type of physical activity do you participate in: walking frequency: 1-2 times per week duration: 15-30 minutes/day eveline/faith: Scientologist seatbelt use: always do you feel safe at home: Yes additional social history: : [employer] History 2 Elective abortions Hx Para 1 Spontaneous abortions Hx # Term Pregnancies 1 Ectopic pregnancies Hx # Pregnancies Multiple births # of living children 1 Past Pregnancies Del. Date Name GA/Weeks Outcome Route Bth Weight Infant Gen Labor Lgth Anesthesia Del Locatn Provider FOB 09/23/22 Kate 38 live - full term 7lbs 6oz Male epi dural [facility] Karyna Daily Delivery Date: 09/23/22 Last Updated by: Jenna Ahmadi SM IAL SROM boy kate HPI 26wk ob *25w6d Details: GRANT RUVALCABA is a 24 year old who presents for routine OB visit. OB Visit ERMA Calculator Estimated Delivery Date Method Current WG Current Estimate 02/06/25 LMP (Certain) 25w 6d Other Estimates 02/05/25 Ultrasound #1 26w 0d Expected Delivery Route/Plan Labor Preferences- CB/BF classes: [] labor support person: [] labor intervention preferences: [] pain management options preferred: [] cut cord/dad catch: [] : [] PP control planned: [] discussed possible routes of delivery and associated risks: [] special requests: [] Specific Issue/Plans Covid status: [] Flu vaccine: [] Tdap vaccine: [] Rhogam: NA LARC form signed: [] Problem list reviewed and updated with the most current plan of care details and appropriate orders placed. Relevant counseling for the gestational age provided. Continue routine care and follow up unless otherwise noted in visit notes/problem list details Initial Weight: 171 lb Date -?-?-?-?-?-?-?-?-?-?-?-?- EGA Weight BP Urine Prot -?-?-?-?-?-?-?-?-?-?-?-?- Glucose FHR FuHt Pres Dilation -?-?-?-?-?-?-?-?-?-?-?-?- Effaced St Visit Note 07/06/24 -?-?-?-?-?-?-?-?-?-?-?-?- 9w 2d 171 lb (+0 oz) 115/78 -?-?-?-?-?-?-?-?-?-?-?-?- 168 -?-?-?-?-?-?-?-?-?-?-?-?- KW- CRL cons wit h dates. accepts NIPT. 08/07/24 -?-?-?-?-?-?-?-?-?-?-?-?- 13w 6d 168 lb 6 oz (-2 lb 10 oz) 123/82 Negative -?-?-?-?-?-?-?-?-?-?-?-?- Negative 160 -?-?-?-?-?-?-?-?-?-?-?-?- SM- no vb lof so me nausea 09/04/24 -?-?-?-?-?-?-?-?-?-?-?-?- 17w 6d 171 lb 8 oz (+8 oz) 113/79 Negative -?-?-?-?-?-?-?-?-?-?-?-?- Negative 145 -?-?-?-?-?-?-?-?-?-?-?-?- MH-No VB. Nausea resolved. PCP increased her to 50mg zoloft and needs refill/sent. 10/02/24 -?-?-?-?-?-?-?-?-?-?-?-?- 21w 6d 175 lb 2 oz (+4 lb 2 oz) 110/72 Negative -?-?-?-?-?-?-?-?-?-?-?-?- Negative 146 -?-?-?-?-?-?-?-?-?-?-?-?- MH-No VB, LOF. G ood FM. 28 wk US w MFM scheduled 10/18/24 -?-?-?-?-?-?-?-?-?-?-?-?- 24w 1d 180 lb 8 oz (+9 lb 8 oz) 118/81 Trace -?-?-?-?-?-?-?-?-?-?-?-?- Negative 153 -?-?-?-?-?-?-?-?-?-?-?-?- MH-work in ED fo llow up: good FM. Cont with headache, dizziness, chest pain and SOB. Normal CBC, CMP. Very frustrated with ED visit and still not feeling well. Will get stat EKG and CXR today 10/30/24 -?-?-?--?-?-?-?-?-?-?-?-?- 25w 6d 183 lb 2 oz (+12 lb 2 oz) 113/78 Negative -?-?-?-?-?-?-?-?-?-?-?-?- Negative 150 25 -?-?-?-?-?-?-?-?-?-?-?-?- KW- no vb/lof/ct x. good fm. glucose next visit. ACOG First Trimester First Trimester: Desire for , Alcohol, Tobacco Cessation, Illicit/Recreational Drug/Substance Use, Intimate Partner Violence, Barriers to care, Unstable Housing, Communication Barriers, Environmental/Work Hazards, Anticipated Course of Care, Toxoplasmosis Precations, Use of Any medications, Sexual activity, Exercise, Dental Care, Sauna/Hot tub use, Seat Belt use, Childbirth classes/Hospital facilities, Travel, Indications for Ultrasound and Screening for Aneuploidy; Discussed Second Trimester Second Trimester: Signs and Symptoms of Labor, Selecting a care provider, Reproductive Life Planning & Contreception, Care Planning, Depression/Anxiety and Intimate Partner Violence; Discussed Tobacco Cessation Third Trimester Third Trimester: Pain Management Plans, Labor support person(s), Immediate Larc, Movement Monitoring, Signs and Symptoms of Preeclampsia, Labor Signs, Education and Depression; Discussed Tobacco Cessation ROS Const Reports system reviewed and no additional complaints, except as documented Eyes Reports system reviewed and no additional complaints, except as documented ENT Reports system reviewed and no additional complaints, except as documented Card Reports system reviewed and no additional complaints, except as documented Resp Reports system reviewed and no additional complaints, except as documented GI Reports system reviewed and no additional complaints, except as documented, Denies nausea and Denies vomiting Reports system reviewed and no additional complaints, except as documented Musc Reports system reviewed and no additional complaints, except as documented Skin/Breast Reports system reviewed and no additional complaints, except as documented Neuro Yes system reviewed and no additional complaints, except as documented Psych Reports system reviewed and no additional complaints, except as documented Endo Reports system reviewed and no additional complaints, except as documented Dario/Lymph Reports system reviewed and no additional complaints, except as documented Aller/Immun Reports system reviewed and no additional complaints, except as documented Exam Const General: cooperative, healthy appearing and no acute distress Orientation: alert, awake and oriented x3 Neck Neck: normal visual inspection and full ROM Resp Effort & Inspection: normal respiratory effort, able to speak in complete sentences and symmetric chest movement GI Inspection: normal to inspection Palpation: soft and other Other: gravid Skin General: no rashes or lesions noted Neuro General: patient alert, patient awake and patient oriented x3 Cognition: normal cognition Speech: speech normal Gait: normal gait Motor: muscle tone normal throughout Extrem General: normal to inspection and full ROM Psych Appearance: grossly normal Mental Status: mental status grossly normal Mood: congruent mood Affect: normal affect Speech and Movement: speech and movement normal Attitude: cooperative Thought Process: normal Thought Content: normal Judgment: judgment good Results POC Urinalysis 2 Dip (Clinic) Office Urine Glucose Negative Last Edit by Clarisse Perry on 10/30/24 13:32 Office Urine Protein Negative Last Edit by Clarisse Perry on 10/30/24 13:32 Coding Level of Care Code Off vis,est,level 3 Diagnoses headache in second trimester O26.892; R51.9 Trimester: second trimester SOB (shortness of breath) R06.02 Chest pain, unspecified type R07.9 Chest pain type: unspecified Low lying placenta, antepartum O44.40 Obesity affecting in second trimester, unspecified obesity type O99.212 Obesity type affecting : unspecified obesity Trimester: second trimester Supervision of high risk in second trimester O09.92 Trimester: second trimester 25 weeks gestation of Z3A.25 Weeks of gestation: 25 weeks Anxiety F41.9 Depression, unspecified depression type F32.A Depression Type: unspecified 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al R87.610; R87.810 Assessment and Plan Assessment and Plan (1) Headache in : Status: Acute Qualifiers: Trimester: second trimester Qualified Code(s): O26.892 - Other specified related conditions, second trimester; R51.9 - Headache, unspecified (2) SOB (shortness of breath): Status: Acute (3) Chest pain: Status: Acute Qualifiers: Chest pain type: unspecified Qualified Code(s): R07.9 - Chest pain, unspecified (4) Low lying placenta, antepartum: Status: Acute Comment: Rpt MFM US 28 wk (5) Obesity affecting : Status: Acute Qualifiers: Obesity type affecting : unspecified obesity Trimester: second trimester Qualified Code(s): O99.212 - Obesity complicating , second trimester Comment: BMI 30.3; HgBA1C w/NOB (6) Supervision of high-risk : Status: Acute Qualifiers: Trimester: second trimester Qualified Code(s): O09.92 - Supervision of high risk , unspecified, second trimester Comment: PRR, , ERMA 02/06/25,girl Fatimah PC: Kate, : Killian (7) : Status: Acute Qualifiers: Weeks of gestation: 25 weeks Qualified Code(s): Z3A.25 - 25 weeks gestation of Comment: (Carrier testing done in prior ), baby low risk, gender female (8) Anxiety: Status: Acute (9) Depression: Status: Acute Qualifiers: Depression Type: unspecified Qualified Code(s): F32.A - Depression, unspecified Comment: Zoloft/stable (10) 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al: Status: Acute Comment: +02/2022. 12/2022 neg pap and HPV; 2023: neg pap and HPV Orders: Orders POC Urinalysis 2 Dip (Clinic) Today CBC W/Diff, Automated Today O09.92 - Supervision of high risk , unspecified, second trimester Glucose Challenge Gest 1H 50g Today Z13.1 - Encounter for screening for diabetes mellitus HIV Today Syphilis Antibodies Today O09.92 - Supervision of high risk , unspecified, second trimester Plan Details Additional Comments: ACOG trimester education reviewed and updated. see problem list details for updated plan management information and see below for orders placed at this visit. GA appropriate handout given. Clinical Quality Measures Falls Risk Screening/Assistive Devices Have you fallen in the past year?: No 10/30/24 1342 <Electronically signed by Sharri nice CNM> Date _ Sharri Begum CNM Cosigner Signature: Date (if applicable) CC: ~ [facility] Work Phone: Progress note Author Lynsey Jones [facility] Note Date/Time November 27, 2024 1:33 pm [facility] [address] [place] [address], [address] [place] [address] OFFICE VISIT Date of Service: 11/27/24 MR#: [id number] Acct: [id number] Name: GRANT RUVALCABA Rep #: [id number] : 2000 Provider: Dr. Lela Ambrocio DO Age/Sex: 24/F Location: [facility] Status: Signed Intake Vital Signs 10/30/24 13:25 11/13/24 13:07 11/27/24 13:20 Height 5 ft 1 in 5 ft 1 in 5 ft 1 in Weight: 192 lb BMI 36.2 BP 109/72 Intake Visit Reasons: 30 wk ob Chief Complaint: 30 Week OB Coal Sample Tester Required: No Is patient in pain?: No Allergies No Known Allergies Allergy (Verified 11/27/24 13:21) Medications ?Medication ?Instructions ?Recorded ?Confirmed ?Type ferrous sulfate 140 mg (45 mg 140 mg PO DAILY 03/04/22 11/27/24 History iron) tablet,extended release cholecalciferol (vitamin D3) 25 25 mcg PO QDAY 4 11/27/24 History mcg (1,000 unit) capsule docosahexaenoic acid 200 mg mg PO 06/22/24 11/27/24 Hi story capsule ( DHA) sertraline 50 mg tablet (Zoloft) 50 mg PO DAILY #90 ta bs 09/04/24 11/27/24 Rx Last Menstrual Period: 05/02/24 Zika: Zika virus screening: Negative : No PFSH PFSH Medical History History of asthma Fatigue normal course Vaginal delivery Depression Contact with and (suspected) exposure to other viral communicable diseases Sinusitis Fibromyalgia Back pain Severe headache Family History Grandmother Breast cancer Paternal Aunt Breast cancer Other Migraines Social History adopted: No household members: spouse and children housing: house number of children: 1 current occupation: [employer] current occupational exposures/hazards: No pets and animals: Yes pets and animals: dog(s) history of recent travel: No sexually active: Yes Smoking Status: Never smoker alcohol intake: current alcohol intake frequency: holidays/special occasions only details: Not while substance use type: does not use well-balanced diet: daily or most days caffeine: Yes Type: coffee eating out: rarely or never during the past year weight has: remained stable what type of physical activity do you participate in: walking frequency: 1-2 times per week duration: 15-30 minutes/day eveline/faith: Scientologist seatbelt use: always do you feel safe at home: Yes additional social history: : [employer] History 2 Elective abortions Hx Para 1 Spontaneous abortions Hx # Term Pregnancies 1 Ectopic pregnancies Hx # Pregnancies Multiple births # of living children 1 Past Pregnancies Del. Date Name GA/Weeks Outcome Route Bth Weight Infant Gen Labor Lgth Anesthesia Del Locatn Provider FOB 09/23/22 Kate 38 live - full term 7lbs 6oz Male epi dural [facility] Karyna Carr [place] Delivery Date: 09/23/22 Last Updated by: Jenna Ahmadi SM IAL SROM boy kate HPI 30 wk ob Details: GRANT RUVALCABA is a 24 year old who presents for routine OB visit. OB Visit ERMA Calculator Estimated Delivery Date Method Current WG Current Estimate 02/06/25 LMP (Certain) 29w 6d Other Estimates 02/05/25 Ultrasound #1 30w 0d Expected Delivery Route/Plan Labor Preferences- CB/BF classes: no labor support person: Killian labor intervention preferences: [] pain management options preferred: epidural if requested cut cord/dad catch: cord : no PP control planned: discussed discussed possible routes of delivery and associated risks: [] special requests: [] Specific Issue/Plans Covid status: [] Flu vaccine: [] Tdap vaccine: [] Rhogam: NA LARC form signed: yes Problem list reviewed and updated with the most current plan of care details and appropriate orders placed. Relevant counseling for the gestational age provided. Continue routine care and follow up unless otherwise noted in visit notes/problem list details Initial Weight: 171 lb Date -?-?-?-?-?-?-?-?-?-?-?-?- EGA Weight BP Urine Prot -?-?-?-?-?-?-?-?-?-?-?-?- Glucose FHR FuHt Pres Dilation -?-?-?-?-?-?-?-?-?-?-?-?- Effaced St Visit Note 07/06/24 -?-?-?-?-?-?-?-?-?-?-?-?- 9w 2d 171 lb (+0 oz) 115/78 -?-?-?-?-?-?-?-?-?-?-?-?- 168 -?-?-?-?-?-?-?-?-?-?-?-?- KW- CRL cons wit h dates. accepts NIPT. 08/07/24 -?-?-?-?-?-?-?-?-?-?-?-?- 13w 6d 168 lb 6 oz (-2 lb 10 oz) 123/82 Negative -?-?-?-?-?-?-?-?-?-?-?-?- Negative 160 -?-?-?-?-?-?-?-?-?-?-?-?- SM- no vb lof so me nausea 09/04/24 -?-?-?-?-?-?-?-?-?-?-?-?- 17w 6d 171 lb 8 oz (+8 oz) 113/79 Negative -?-?-?-?-?-?-?-?-?-?-?-?- Negative 145 -?-?-?-?-?-?-?-?-?-?-?-?- MH-No VB. Nausea resolved. PCP increased her to 50mg zoloft and needs refill/sent. 10/02/24 -?-?-?-?-?-?-?-?-?-?-?-?- 21w 6d 175 lb 2 oz (+4 lb 2 oz) 110/72 Negative -?-?-?-?-?-?-?-?-?-?-?-?- Negative 146 -?-?-?-?-?-?-?-?-?-?-?-?- -No VB, LOF. G ood FM. 28 wk US w MFM scheduled 10/18/24 -?-?-?-?-?-?-?-?-?-?-?-?- 24w 1d 180 lb 8 oz (+9 lb 8 oz) 118/81 Trace -?-?-?-?-?-?-?-?-?-?-?-?- Negative 153 -?-?-?-?-?-?-?--?-?-?-?-?- MH-work in ED fo llow up: good FM. Cont with headache, dizziness, chest pain and SOB. Normal CBC, CMP. Very frustrated with ED visit and still not feeling well. Will get stat EKG and CXR today 10/30/24 -?-?-?-?-?-?-?-?-?-?-?-?- 25w 6d 183 lb 2 oz (+12 lb 2 oz) 113/78 Negative -?-?-?-?-?-?-?-?-?-?-?-?- Negative 150 25 -?-?-?-?-?-?-?-?-?-?-?-?- KW- no vb/lof/ct x. good fm. glucose next visit. 11/13/24 -?-?-?-?-?-?-?-?-?-?-?-?- 27w 6d 185 lb 4 oz (+14 lb 4 oz) 112/78 Negative -?-?-?-?-?-?-?-?-?-?-?-?- Negative 143 28 -?-?-?-?-?-?-?-?-?-?-?-?- -No VB, LOF. G ood FM. Larc. 28 wk labs pending 11/27/24 -?-?-?-?-?-?-?-?-?-?-?-?- 29w 6d 192 lb (+21 lb) 109/72 Negative -?-?-?-?-?-?-?-?-?-?-?-?- Negative 145 29 -?-?-?-?-?-?-?-?-?-?-?-?- JV- no lof, vagi nal bleeding, or dec fm. no complaints other than a sharp left lower side pain x1 over the weekend. declines tdap. ACOG First Trimester First Trimester: Desire for , Alcohol, Tobacco Cessation, Illicit/Recreational Drug/Substance Use, Intimate Partner Violence, Barriers to care, Unstable Housing, Communication Barriers, Environmental/Work Hazards, Anticipated Course of Care, Toxoplasmosis Precations, Use of Any medications, Sexual activity, Exercise, Dental Care, Sauna/Hot tub use, Seat Belt use, Childbirth classes/Hospital facilities, Travel, Indications for Ultrasound and Screening for Aneuploidy; Discussed Second Trimester Second Trimester: Signs and Symptoms of Labor, Selecting a care provider, Reproductive Life Planning & Contreception, Care Planning, Depression/Anxiety and Intimate Partner Violence; Discussed Tobacco Cessation Third Trimester Third Trimester: Pain Management Plans, Labor support person(s), Immediate Larc, Movement Monitoring, Signs and Symptoms of Preeclampsia, Labor Signs, Education, Family Medical Leave or Disability Forms, Depression and Intimate Partner Violence; Discussed Tobacco Cessation Results POC Urinalysis 2 Dip (Clinic) Office Urine Glucose Negative Last Edit by Coleen Robles on 11/27/24 13 :25 Office Urine Protein Negative Last Edit by Coleen Robles on 11/27/24 13 :25 Coding Level of Care Code OB Routine Diagnoses 29 weeks gestation of Z3A.29 Weeks of gestation: 29 weeks Supervision of high risk in second trimester O09.92 Trimester: second trimester Obesity affecting in second trimester, unspecified obesity type O99.212 Obesity type affecting : unspecified obesity Trimester: second trimester SOB (shortness of breath) R06.02 headache in second trimester O26.892; R51.9 Trimester: second trimester Anxiety F41.9 Depression, unspecified depression type F32.A Depression Type: unspecified 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al R87.610; R87.810 Assessment and Plan Assessment and Plan (1) : Status: Acute Qualifiers: Weeks of gestation: 29 weeks Qualified Code(s): Z3A.29 - 29 weeks gestation of Comment: (Carrier testing done in prior ), baby low risk, gender female (2) Supervision of high-risk : Status: Acute Qualifiers: Trimester: second trimester Qualified Code(s): O09.92 - Supervision of high risk , unspecified, second trimester Comment: PRR, , ERMA 02/06/25,girl Fatimah PC: Kate, : Killian (3) Obesity affecting : Status: Acute Qualifiers: Obesity type affecting : unspecified obesity Trimester: second trimester Qualified Code(s): O99.212 - Obesity complicating , second trimester Comment: BMI 30.3; HgBA1C w/NOB (4) SOB (shortness of breath): Status: Acute Comment: improved (5) Headache in : Status: Acute Qualifiers: Trimester: second trimester Qualified Code(s): O26.892 - Other specified related conditions, second trimester; R51.9 - Headache, unspecified (6) Anxiety: Status: Acute (7) Depression: Status: Acute Qualifiers: Depression Type: unspecified Qualified Code(s): F32.A - Depression, unspecified Comment: Zoloft/stable (8) 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al: Status: Acute Comment: +02/2022. 12/2022 neg pap and HPV; 2023: neg pap and HPV Orders: Orders POC Urinalysis 2 Dip (Clinic) Today 11/27/24 1333 <Electronically signed by Lynsey Sarabia DO> Date _ Lynsey Woodsignalpesh Signature: Date (if applicable) CC: ~ [facility] Work Phone: Reason for referral (narrative)No reason for referral information availableWAs[facility] Work Phone: Chief Complaint and Reason for Visit Chief Complaint NOB LMP 01/11/22 E-ORDER Reason for Visit Asthma Fibromyalgia Supervision of high risk , antepartum Chief Complaint NOB LMP 01/11/22 E-ORDER 14wk ob 17 WK OB 21 WK OB 1 HR GLUCOSE/ E ORDER 25 WK OB R/U LABOR R/U LABOR Reason for Visit Asthma Fibromyalgia Supervision of high risk , antepartum 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al Asthma Fibromyalgia Supervision of high risk , antepartum Supervision of high risk , antepartum 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al Asthma Depression affecting Fibromyalgia Supervision of high risk , antepartum 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al Asthma Depression affecting Fibromyalgia Supervision of high risk , antepartum Marginal placenta previa Chief Complaint 17 WK OB 21 WK OB 1 HR GLUCOSE/ E ORDER 25 WK OB R/U LABOR R/U LABOR irregular contractions 28 WK OB 30 WK OB 32 WK OB DECREASED MOVEMENT Reason for Visit Supervision of high risk , antepartum 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al Asthma Depression affecting Fibromyalgia Supervision of high risk , antepartum 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al Asthma Depression affecting Fibromyalgia Supervision of high risk , antepartum Marginal placenta previa Supervision of high risk , antepartum Threatened labor 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al Asthma Depression affecting Fibromyalgia Supervision of high risk , antepartum Threatened labor 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al Asthma Depression affecting Fibromyalgia Supervision of high risk , antepartum Threatened labor Asthma Depression affecting Supervision of high risk , antepartum Chief Complaint 21 WK OB 1 HR GLUCOSE/ E ORDER 25 WK OB R/U LABOR R/U LABOR irregular contractions 28 WK OB 30 WK OB 32 WK OB DECREASED MOVEMENT DECREASED MOVEMENT 34 WK OB 36 WK OB 37 WK OB R/O PRE ECLAMPSIA R/O PRE ECLAMPSIA Reason for Visit 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al Asthma Depression affecting Fibromyalgia Supervision of high risk , antepartum 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al Asthma Depression affecting Fibromyalgia Supervision of high risk , antepartum Marginal placenta previa Supervision of high risk , antepartum Threatened labor 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al Asthma Depression affecting Fibromyalgia Supervision of high risk , antepartum Threatened labor 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al Asthma Depression affecting Fibromyalgia Supervision of high risk , antepartum Threatened labor Asthma Depression affecting Supervision of high risk , antepartum Decreased movement 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al Asthma Depression affecting Fibromyalgia Supervision of high risk , antepartum Decreased movement Threatened labor 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al Asthma Depression affecting Fibromyalgia Supervision of high risk , antepartum Depression affecting Elevated blood pressure affecting in third trimester, antepartum Proteinuria affecting in third trimester Supervision of high risk , antepartum Chief Complaint 21 WK OB 1 HR GLUCOSE/ E ORDER 25 WK OB R/U LABOR R/U LABOR irregular contractions 28 WK OB 30 WK OB 32 WK OB DECREASED MOVEMENT DECREASED MOVEMENT 34 WK OB 36 WK OB 37 WK OB R/O PRE ECLAMPSIA R/O PRE ECLAMPSIA R/O PRE E R/O PRE E Reason for Visit 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al Asthma Depression affecting Fibromyalgia Supervision of high risk , antepartum 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al Asthma Depression affecting Fibromyalgia Supervision of high risk , antepartum Marginal placenta previa Supervision of high risk , antepartum Threatened labor 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al Asthma Depression affecting Fibromyalgia Supervision of high risk , antepartum Threatened labor 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al Asthma Depression affecting Fibromyalgia Supervision of high risk , antepartum Threatened labor Asthma Depression affecting Supervision of high risk , antepartum Decreased movement 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al Asthma Depression affecting Fibromyalgia Supervision of high risk , antepartum Decreased movement Threatened labor 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al Asthma Depression affecting Fibromyalgia Supervision of high risk , antepartum Depression affecting Elevated blood pressure affecting in third trimester, antepartum Proteinuria affecting in third trimester Supervision of high risk , antepartum Flank pain in patient Proteinuria affecting in third trimester Chief Complaint 21 WK OB 1 HR GLUCOSE/ E ORDER 25 WK OB R/U LABOR R/U LABOR irregular contractions 28 WK OB 30 WK OB 32 WK OB DECREASED MOVEMENT DECREASED MOVEMENT 34 WK OB 36 WK OB 37 WK OB R/O PRE ECLAMPSIA R/O PRE ECLAMPSIA R/O PRE E R/O PRE E 38 WK OB R/O LABOR Reason for Visit 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al Asthma Depression affecting Fibromyalgia Supervision of high risk , antepartum 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al Asthma Depression affecting Fibromyalgia Supervision of high risk , antepartum Marginal placenta previa Supervision of high risk , antepartum Threatened labor 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al Asthma Depression affecting Fibromyalgia Supervision of high risk , antepartum Threatened labor 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al Asthma Depression affecting Fibromyalgia Supervision of high risk , antepartum Threatened labor Asthma Depression affecting Supervision of high risk , antepartum Decreased movement 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al Asthma Depression affecting Fibromyalgia Supervision of high risk , antepartum Decreased movement Threatened labor 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al Asthma Depression affecting Fibromyalgia Supervision of high risk , antepartum Depression affecting Supervision of high risk , antepartum Elevated blood pressure affecting in third trimester, antepartum Proteinuria affecting in third trimester Flank pain in patient Proteinuria affecting in third trimester 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al Asthma Depression affecting Fibromyalgia Supervision of high risk , antepartum UTI (urinary tract infection) during Chief Complaint 1 HR GLUCOSE/ E ORDE R 25 WK OB R/U LABOR R/U LABOR irregular contractions 28 WK OB 30 WK OB 32 WK OB DECREASED MOVEMENT DECREASED MOVEMENT 34 WK OB 36 WK OB 37 WK OB R/O PRE ECLAMPSIA R/O PRE ECLAMPSIA R/O PRE E R/O PRE E 38 WK OB R/O LABOR VAG LABOR & DELIVERY VAG VAG Reason for Visit 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al Depression affecting Asthma Fibromyalgia Marginal placenta previa Supervision of high risk , antepartum Supervision of high risk , antepartum Threatened labor 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al Depression affecting Asthma Fibromyalgia Supervision of high risk , antepartum Threatened labor 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al Depression affecting Asthma Fibromyalgia Supervision of high risk , antepartum Threatened labor Depression affecting Asthma Supervision of high risk , antepartum Decreased movement 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al Depression affecting Asthma Decreased movement Fibromyalgia Supervision of high risk , antepartum Threatened labor 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al Depression affecting Asthma Fibromyalgia Supervision of high risk , antepartum Depression affecting Elevated blood pressure affecting in third trimester, antepartum Proteinuria affecting in third trimester Supervision of high risk , antepartum Flank pain in patient Proteinuria affecting in third trimester 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al Depression affecting Asthma Fibromyalgia Supervision of high risk , antepartum UTI (urinary tract infection) during False labor after 37 completed weeks of gestation 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al Depression affecting Vaginal delivery Asthma Fibromyalgia SROM (spontaneous rupture of membranes) Supervision of high risk , antepartum UTI (urinary tract infection) during Chief Complaint 1 HR GLUCOSE/ E ORDE R 25 WK OB R/U LABOR R/U LABOR irregular contractions 28 WK OB 30 WK OB 32 WK OB DECREASED MOVEMENT DECREASED MOVEMENT 34 WK OB 36 WK OB 37 WK OB R/O PRE ECLAMPSIA R/O PRE ECLAMPSIA R/O PRE E R/O PRE E 38 WK OB R/O LABOR VAG LABOR & DELIVERY VAG VAG Reason for Visit 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al Depression affecting Asthma Fibromyalgia Marginal placenta previa Supervision of high risk , antepartum Supervision of high risk , antepartum Threatened labor 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al Depression affecting Asthma Fibromyalgia Supervision of high risk , antepartum Threatened labor 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al Depression affecting Asthma Fibromyalgia Supervision of high risk , antepartum Threatened labor Depression affecting Asthma Supervision of high risk , antepartum Decreased movement 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al Depression affecting Asthma Decreased movement Fibromyalgia Supervision of high risk , antepartum Threatened labor 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al Depression affecting Asthma Fibromyalgia Supervision of high risk , antepartum Depression affecting Elevated blood pressure affecting in third trimester, antepartum Proteinuria affecting in third trimester Supervision of high risk , antepartum Flank pain in patient Proteinuria affecting in third trimester 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al Depression affecting Asthma Fibromyalgia Supervision of high risk , antepartum UTI (urinary tract infection) during 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al Depression affecting Vaginal delivery Asthma Fibromyalgia SROM (spontaneous rupture of membranes) Supervision of high risk , antepartum UTI (urinary tract infection) during Chief Complaint 30 WK OB 32 WK OB DECREASED MOVEMENT DECREASED MOVEMENT 34 WK OB 36 WK OB 37 WK OB R/O PRE ECLAMPSIA R/O PRE ECLAMPSIA R/O PRE E R/O PRE E 38 WK OB R/O LABOR VAG LABOR & DELIVERY VAG VAG 6 WK PP 6 wk pp Reason for Visit 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al Depression affecting Asthma Fibromyalgia Supervision of high risk , antepartum Threatened labor Depression affecting Asthma Supervision of high risk , antepartum Decreased movement 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al Depression affecting Asthma Decreased movement Fibromyalgia Supervision of high risk , antepartum Threatened labor 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al Depression affecting Asthma Fibromyalgia Supervision of high risk , antepartum Depression affecting Elevated blood pressure affecting in third trimester, antepartum Proteinuria affecting in third trimester Supervision of high risk , antepartum Flank pain in patient Proteinuria affecting in third trimester 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al Depression affecting Asthma Fibromyalgia Supervision of high risk , antepartum UTI (urinary tract infection) during 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al Depression affecting Asthma Fibromyalgia SROM (spontaneous rupture of membranes) Supervision of high risk , antepartum UTI (urinary tract infection) during 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al Depression affecting Chief Complaint 36 WK OB 37 WK OB R/O PRE ECLAMPSIA R/O PRE ECLAMPSIA R/O PRE E R/O PRE E 38 WK OB R/O LABOR VAG LABOR & DELIVERY VAG VAG 6 WK PP 6 wk pp REDO PAP, DISCUSS PP DEPRESSION Reason for Visit 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al Depression affecting Asthma Fibromyalgia Supervision of high risk , antepartum Depression affecting Elevated blood pressure affecting in third trimester, antepartum Proteinuria affecting in third trimester Supervision of high risk , antepartum Flank pain in patient Proteinuria affecting in third trimester 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al Depression affecting Asthma Fibromyalgia Supervision of high risk , antepartum UTI (urinary tract infection) during 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al Depression affecting Asthma Fibromyalgia SROM (spontaneous rupture of membranes) Supervision of high risk , antepartum UTI (urinary tract infection) during 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al Depression affecting Chief Complaint RT EAR ACHE Sinus infection unusual cramping and pelvic pain PELVIC PAIN Reason for Visit Sinusitis Pelvic pain Chief Complaint RT EAR ACHE Sinus infection unusual cramping and pelvic pain PELVIC PAIN PELVIC PAIN Reason for Visit Sinusitis Pelvic pain Chief Complaint Admit Date New OB, LMP 05/02, ERMA 02/06/25 June 142024 1:02pm 14 wk ob August 07, 2024 2:06pm 18 wk ob September 04, 2024 3:2 8pm 22 wk ob October 02, 2024 8:3 0am general illness, October 16, 2024 2:37pm ED Follow Up October 18, 2024 11:33a m CP October 18, 2024 11:57a m Reason for Visit Admit Date Anxiety July 06, 2024 1 :02pm 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 July 06, 2024 1:02pm Depression July 06, 2024 1 :02pm Obesity affecting June 1:02pm July 06, 2024 1 :02pm Supervision of high-risk Janua 2024 1:02pm Anxiety August 07, 2024 2:06pm 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 August 07, 2024 2:06pm Depression August 07, 2024 2:06pm Obesity affecting July 2:06pm August 07, 2024 2:06pm Supervision of high-risk Febru 2024 2:06pm Anxiety September 04, 2024 3:2 8pm Depression September 04, 2024 3:2 8pm Obesity affecting September 04, 2024 3:28pm September 04, 2024 3:2 8pm Supervision of high-risk September 04, 2024 3:28pm Anxiety October 02, 2024 8:3 0am 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 October 02, 2024 8:30am Depression October 02, 2024 8:3 0am Low lying placenta, antepartum September 8:30am Obesity affecting October 02, 2024 8:30am October 02, 2024 8:3 0am Supervision of high-risk October 02, 2024 8:30am Anemia affecting second October 8 h2024 11:33am Anxiety October 18, 2024 11:33a m Chest pain October 18, 2024 11:33a m Depression October 18, 2024 11:33a m Headache in October 18, 2024 11:3 3am Low lying placenta, antepartum October 18, 2024 11:33am Obesity affecting October 18 11:33am Orthostatic lightheadedness October 18 11:33am October 18, 2024 11:33a m SOB (shortness of breath) October 18, 2024 11:33am Supervision of high-risk October 182024 11:33am Chief Complaint Admit Date New OB, LMP 05/02, ERMA 02/06/25 June 142024 1:02pm 14 wk ob August 07, 2024 2:06pm 18 wk ob September 04, 2024 3:2 8pm 22 wk ob October 02, 2024 8:3 0am general illness, October 16, 2024 2:37pm ED Follow Up October 18, 2024 11:33a m CP October 18, 2024 11:57a m CP October 18, 2024 12:23p m 26wk ob *25w6d October 30, 2024 1:21p m Reason for Visit Admit Date Anxiety July 06, 2024 1 :02pm 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 July 06, 2024 1:02pm Depression July 06, 2024 1 :02pm Obesity affecting June 1:02pm July 06, 2024 1 :02pm Supervision of high-risk Janua 2024 1:02pm Anxiety August 07, 2024 2:06pm 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 August 07, 2024 2:06pm Depression August 07, 2024 2:06pm Obesity affecting July 2:06pm August 07, 2024 2:06pm Supervision of high-risk Febru [email or web address] 2:06pm Anxiety September 04, 2024 3:2 8pm Depression September 04, 2024 3:2 8pm Obesity affecting September 04, 2024 3:28pm September 04, 2024 3:2 8pm Supervision of high-risk September 04, 2024 3:28pm Anxiety October 02, 2024 8:3 0am 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 October 02, 2024 8:30am Depression October 02, 2024 8:3 0am Low lying placenta, antepartum September 8:30am Obesity affecting October 02, 2024 8:30am October 02, 2024 8:3 0am Supervision of high-risk October 02, 2024 8:30am Anxiety October 18, 2024 11:33a m Chest pain October 18, 2024 11:33a m Depression October 18, 2024 11:33a m Headache in October 18, 2024 11:3 3am Low lying placenta, antepartum October 18, 2024 11:33am Obesity affecting October 18 11:33am October 18, 2024 11:33a m SOB (shortness of breath) October 18, 2024 11:33am Supervision of high-risk October 182024 11:33am Anemia affecting second October 11:33am Orthostatic lightheadedness October 18 11:33am Anxiety October 30, 2024 1:21p m 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 October 30, 2024 1:21pm Chest pain October 30, 2024 1:21p m Depression October 30, 2024 1:21p m Headache in October 30, 2024 1:2 1pm Low lying placenta, antepartum October 30, 2024 1:21pm Obesity affecting October 30 1:21pm October 30, 2024 1:21p m SOB (shortness of breath) October 30, 2024 1:21pm Supervision of high-risk October 122024 1:21pm Chief Complaint Admit Date 14 wk ob August 07, 2024 2:06pm 18 wk ob September 04, 2024 3:2 8pm 22 wk ob October 02, 2024 8:3 0am general illness, October 16, 2024 2:37pm ED Follow Up October 18, 2024 11:33a m CP October 18, 2024 11:57a m CP October 18, 2024 12:23p m 26wk ob *25w6d October 30, 2024 1:21p m 1:00 TIMED GLUCOSE DRAW November 13, 2024 1 2:47pm 28wk ob/glucose November 13, 2024 1:02p m Reason for Visit Admit Date Anxiety August 07, 2024 2:06pm 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 August 07, 2024 2:06pm Depression August 07, 2024 2:06pm Obesity affecting July 2:06pm August 07, 2024 2:06pm Supervision of high-risk Febru [email or web address] 2:06pm Anxiety September 04, 2024 3:2 8pm Depression September 04, 2024 3:2 8pm Obesity affecting September 04, 2024 3:28pm September 04, 2024 3:2 8pm Supervision of high-risk September 04, 2024 3:28pm Anxiety October 02, 2024 8:3 0am 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 October 02, 2024 8:30am Depression October 02, 2024 8:3 0am Obesity affecting October 02, 2024 8:30am October 02, 2024 8:3 0am Supervision of high-risk October 02, 2024 8:30am Low lying placenta, antepartum September 8:30am Anxiety October 18, 2024 11:33a m Depression October 18, 2024 11:33a m Headache in October 18, 2024 11:3 3am Obesity affecting October 18 11:33am October 18, 2024 11:33a m SOB (shortness of breath) October 18, 2024 11:33am Supervision of high-risk October 182024 11:33am Chest pain October 18, 2024 11:33a m Low lying placenta, antepartum October 18, 2024 11:33am Anemia affecting second October 11:33am Orthostatic lightheadedness October 18 11:33am Anxiety October 30, 2024 1:21p m 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 October 30, 2024 1:21pm Depression October 30, 2024 1:21p m Headache in October 30, 2024 1:2 1pm Obesity affecting October 30 1:21pm October 30, 2024 1:21p m SOB (shortness of breath) October 30, 2024 1:21pm Supervision of high-risk October 122024 1:21pm Chest pain October 30, 2024 1:21p m Low lying placenta, antepartum October 30, 2024 1:21pm Anxiety November 13, 2024 1:02p m Depression November 13, 2024 1:02p m Headache in November 13, 2024 1:0 2pm Obesity affecting November 13 1:02pm November 13, 2024 1:02p m Supervision of high-risk November 13, 2024 1:02pm Low lying placenta, antepartum November 13, 2024 1:02pm Reason for Visit Admit Date Anxiety August 07, 2024 2:06pm 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 August 07, 2024 2:06pm Depression August 07, 2024 2:06pm Obesity affecting July 2:06pm August 07, 2024 2:06pm Supervision of high-risk u 2024 2:06pm Anxiety September 04, 2024 3:2 8pm Depression September 04, 2024 3:2 8pm Obesity affecting September 04, 2024 3:28pm September 04, 2024 3:2 8pm Supervision of high-risk September 04, 2024 3:28pm Anxiety October 02, 2024 8:3 0am 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 October 02, 2024 8:30am Depression October 02, 2024 8:3 0am Low lying placenta, antepartum September 8:30am Obesity affecting October 02, 2024 8:30am October 02, 2024 8:3 0am Supervision of high-risk October 02, 2024 8:30am Anxiety October 18, 2024 11:33a m Depression October 18, 2024 11:33a m Headache in October 18, 2024 11:3 3am Low lying placenta, antepartum October 18, 2024 11:33am Obesity affecting October 18 11:33am October 18, 2024 11:33a m SOB (shortness of breath) October 18, 2024 11:33am Supervision of high-risk October 182024 11:33am Chest pain October 18, 2024 11:33a m Anemia affecting second October 11:33am Orthostatic lightheadedness October 18 11:33am Anxiety October 30, 2024 1:21p m 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 October 30, 2024 1:21pm Depression October 30, 2024 1:21p m Headache in October 30, 2024 1:2 1pm Low lying placenta, antepartum October 30, 2024 1:21pm Obesity affecting October 30 1:21pm October 30, 2024 1:21p m SOB (shortness of breath) October 30, 2024 1:21pm Supervision of high-risk October 122024 1:21pm Chest pain October 30, 2024 1:21p m Anxiety November 13, 2024 1:02p m Depression November 13, 2024 1:02p m Headache in November 13, 2024 1:0 2pm Low lying placenta, antepartum November 13, 2024 1:02pm Obesity affecting November 13 1:02pm November 13, 2024 1:02p m Supervision of high-risk November 13, 2024 1:02pm Chief Complaint Admit Date 14 wk ob August 07, 2024 2:06pm 18 wk ob September 04, 2024 3:2 8pm 22 wk ob October 02, 2024 8:3 0am general illness, October 16, 2024 2:37pm ED Follow Up October 18, 2024 11:33a m CP October 18, 2024 11:57a m CP October 18, 2024 12:23p m 26wk ob *25w6d October 30, 2024 1:21p m 1:00 TIMED GLUCOSE DRAW November 13, 2024 1 2:47pm 28wk ob/glucose November 13, 2024 1:02p m 30 wk ob November 27, 2024 1:17 pm Reason for Visit Admit Date Anxiety August 07, 2024 2:06pm 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 August 07, 2024 2:06pm Depression August 07, 2024 2:06pm Obesity affecting July 2:06pm August 07, 2024 2:06pm Supervision of high-risk Febru [email or web address] 2:06pm Anxiety September 04, 2024 3:2 8pm Depression September 04, 2024 3:2 8pm Obesity affecting September 04, 2024 3:28pm September 04, 2024 3:2 8pm Supervision of high-risk September 04, 2024 3:28pm Anxiety October 02, 2024 8:3 0am 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 October 02, 2024 8:30am Depression October 02, 2024 8:3 0am Obesity affecting October 02, 2024 8:30am October 02, 2024 8:3 0am Supervision of high-risk October 02, 2024 8:30am Low lying placenta, antepartum September 8:30am Anxiety October 18, 2024 11:33a m Depression October 18, 2024 11:33a m Headache in October 18, 2024 11:3 3am Obesity affecting October 18 11:33am October 18, 2024 11:33a m SOB (shortness of breath) October 18, 2024 11:33am Supervision of high-risk October 182024 11:33am Chest pain October 18, 2024 11:33a m Low lying placenta, antepartum October 18, 2024 11:33am Anemia affecting second October 11:33am Orthostatic lightheadedness October 18 11:33am Anxiety October 30, 2024 1:21p m 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 October 30, 2024 1:21pm Depression October 30, 2024 1:21p m Headache in October 30, 2024 1:2 1pm Obesity affecting October 30 1:21pm October 30, 2024 1:21p m SOB (shortness of breath) October 30, 2024 1:21pm Supervision of high-risk October 122024 1:21pm Chest pain October 30, 2024 1:21p m Low lying placenta, antepartum October 30, 2024 1:21pm Anxiety November 13, 2024 1:02p m Depression November 13, 2024 1:02p m Headache in November 13, 2024 1:0 2pm Obesity affecting November 13 1:02pm November 13, 2024 1:02p m Supervision of high-risk November 13, 2024 1:02pm Low lying placenta, antepartum November 13, 2024 1:02pm Anxiety November 27, 2024 1:17 pm 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 November 27, 2024 1:17pm Depression November 27, 2024 1:17 pm Headache in November 27, 2024 1: 17pm Obesity affecting November 27, 2 025 1:17pm November 27, 2024 1:17 pm SOB (shortness of breath) November 27 1:17pm Supervision of high-risk November 27, 2024 1:17pm Chief Complaint Admit Date 14 wk ob August 07, 2024 2:06pm 18 wk ob September 04, 2024 3:2 8pm 22 wk ob October 02, 2024 8:3 0am general illness, October 16, 2024 2:37pm ED Follow Up October 18, 2024 11:33a m CP October 18, 2024 11:57a m CP October 18, 2024 12:23p m 26wk ob *25w6d October 30, 2024 1:21p m 1:00 TIMED GLUCOSE DRAW November 13, 2024 1 2:47pm 28wk ob/glucose November 13, 2024 1:02p m 30 wk ob November 27, 2024 1:17 pm RULE OUT LABOR December 05, 2024 9:40 pm Chief Complaint Admit Date 18 wk ob September 04, 2024 3:2 8pm 22 wk ob October 02, 2024 8:3 0am general illness, October 16, 2024 2:37pm ED Follow Up October 18, 2024 11:33a m CP October 18, 2024 11:57a m CP October 18, 2024 12:23p m 26wk ob *25w6d October 30, 2024 1:21p m 1:00 TIMED GLUCOSE DRAW November 13, 2024 1 2:47pm 28wk ob/glucose November 13, 2024 1:02p m 30 wk ob November 27, 2024 1:17 pm RULE OUT LABOR December 05, 2024 9:40 pm RULE OUT LABOR December 05, 2024 11:0 4pm 32 wk ob December 11, 2024 1:36p m Reason for Visit Admit Date Anxiety September 04, 2024 3:2 8pm Depression September 04, 2024 3:2 8pm Obesity affecting September 04, 2024 3:28pm September 04, 2024 3:2 8pm Supervision of high-risk September 04, 2024 3:28pm Anxiety October 02, 2024 8:3 0am 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 October 02, 2024 8:30am Depression October 02, 2024 8:3 0am Obesity affecting October 02, 2024 8:30am October 02, 2024 8:3 0am Supervision of high-risk October 02, 2024 8:30am Low lying placenta, antepartum September 8:30am Anxiety October 18, 2024 11:33a m Depression October 18, 2024 11:33a m Headache in October 18, 2024 11:3 3am Obesity affecting October 18 11:33am October 18, 2024 11:33a m SOB (shortness of breath) October 18, 2024 11:33am Supervision of high-risk October 182024 11:33am Chest pain October 18, 2024 11:33a m Low lying placenta, antepartum October 18, 2024 11:33am Anemia affecting second October 11:33am Orthostatic lightheadedness October 18 11:33am Anxiety October 30, 2024 1:21p m 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 October 30, 2024 1:21pm Depression October 30, 2024 1:21p m Headache in October 30, 2024 1:2 1pm Obesity affecting October 30 1:21pm October 30, 2024 1:21p m SOB (shortness of breath) October 30, 2024 1:21pm Supervision of high-risk October 122024 1:21pm Chest pain October 30, 2024 1:21p m Low lying placenta, antepartum October 30, 2024 1:21pm Anxiety November 13, 2024 1:02p m Depression November 13, 2024 1:02p m Headache in November 13, 2024 1:0 2pm Obesity affecting November 13 1:02pm November 13, 2024 1:02p m Supervision of high-risk November 13, 2024 1:02pm Low lying placenta, antepartum November 13, 2024 1:02pm Anxiety November 27, 2024 1:17 pm 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 November 27, 2024 1:17pm Depression November 27, 2024 1:17 pm Headache in November 27, 2024 1: 17pm Obesity affecting November 27, 2 025 1:17pm November 27, 2024 1:17 pm SOB (shortness of breath) November 27 1:17pm Supervision of high-risk November 27, 2024 1:17pm Anxiety December 05, 2024 9:40 pm Obesity affecting December 05, 2 025 9:40pm December 05, 2024 9:40 pm Supervision of high-risk December 05, 2024 9:40pm Trauma during December 05, 2024 9:40pm Anxiety December 11, 2024 1:36p m Depression December 11, 2024 1:36p m Headache in December 11, 2024 1:3 6pm Obesity affecting December 11 1:36pm December 11, 2024 1:36p m SOB (shortness of breath) December 11, 2024 1:36pm Supervision of high-risk December 11, 2024 1:36pm Trauma during December 11, 2024 1 :36pm Chief Complaint Admit Date 18 wk ob September 04, 2024 3:2 8pm 22 wk ob October 02, 2024 8:3 0am general illness, October 16, 2024 2:37pm ED Follow Up October 18, 2024 11:33a m CP October 18, 2024 11:57a m CP October 18, 2024 12:23p m 26wk ob *25w6d October 30, 2024 1:21p m 1:00 TIMED GLUCOSE DRAW November 13, 2024 1 2:47pm 28wk ob/glucose November 13, 2024 1:02p m 30 wk ob November 27, 2024 1:17 pm RULE OUT LABOR December 05, 2024 9:40 pm RULE OUT LABOR December 05, 2024 11:0 4pm 32 wk ob December 11, 2024 1:36p m 34 wk ob December 25, 2024 1:51 pm Reason for Visit Admit Date Anxiety September 04, 2024 3:2 8pm Depression September 04, 2024 3:2 8pm Obesity affecting September 04, 2024 3:28pm September 04, 2024 3:2 8pm Supervision of high-risk September 04, 2024 3:28pm Anxiety October 02, 2024 8:3 0am 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 October 02, 2024 8:30am Depression October 02, 2024 8:3 0am Obesity affecting October 02, 2024 8:30am October 02, 2024 8:3 0am Supervision of high-risk October 02, 2024 8:30am Low lying placenta, antepartum September 8:30am Anxiety October 18, 2024 11:33a m Depression October 18, 2024 11:33a m Headache in October 18, 2024 11:3 3am Obesity affecting October 18 11:33am October 18, 2024 11:33a m SOB (shortness of breath) October 18, 2024 11:33am Supervision of high-risk October 182024 11:33am Chest pain October 18, 2024 11:33a m Low lying placenta, antepartum October 18, 2024 11:33am Anemia affecting second October 11:33am Orthostatic lightheadedness October 18 11:33am Anxiety October 30, 2024 1:21p m 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 October 30, 2024 1:21pm Depression October 30, 2024 1:21p m Headache in October 30, 2024 1:2 1pm Obesity affecting October 30 1:21pm October 30, 2024 1:21p m SOB (shortness of breath) October 30, 2024 1:21pm Supervision of high-risk October 122024 1:21pm Chest pain October 30, 2024 1:21p m Low lying placenta, antepartum October 30, 2024 1:21pm Anxiety November 13, 2024 1:02p m Depression November 13, 2024 1:02p m Headache in November 13, 2024 1:0 2pm Obesity affecting November 13 1:02pm November 13, 2024 1:02p m Supervision of high-risk November 13, 2024 1:02pm Low lying placenta, antepartum November 13, 2024 1:02pm Anxiety November 27, 2024 1:17 pm 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 November 27, 2024 1:17pm Depression November 27, 2024 1:17 pm Headache in November 27, 2024 1: 17pm Obesity affecting November 27, 2 025 1:17pm November 27, 2024 1:17 pm SOB (shortness of breath) November 27 1:17pm Supervision of high-risk November 27, 2024 1:17pm Anxiety December 05, 2024 9:40 pm Obesity affecting December 05, 2 025 9:40pm December 05, 2024 9:40 pm Supervision of high-risk December 05, 2024 9:40pm Trauma during December 05, 2024 9:40pm Anxiety December 11, 2024 1:36p m Depression December 11, 2024 1:36p m Headache in December 11, 2024 1:3 6pm Obesity affecting December 11 1:36pm December 11, 2024 1:36p m SOB (shortness of breath) December 11, 2024 1:36pm Supervision of high-risk December 11, 2024 1:36pm Trauma during December 11, 2024 1 :36pm Anxiety December 25, 2024 1:51 pm 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 December 25, 2024 1:51pm Depression December 25, 2024 1:51 pm Headache in December 25, 2024 1: 51pm Obesity affecting December 25, 2 025 1:51pm December 25, 2024 1:51 pm SOB (shortness of breath) December 25 1:51pm Supervision of high-risk December 25, 2024 1:51pm Trauma during December 25, 2024 1:51pm Chief Complaint Admit Date 22 wk ob October 02, 2024 8:3 0am general illness, October 16, 2024 2:37pm ED Follow Up October 18, 2024 11:33a m CP October 18, 2024 11:57a m CP October 18, 2024 12:23p m 26wk ob *25w6d October 30, 2024 1:21p m 1:00 TIMED GLUCOSE DRAW November 13, 2024 1 2:47pm 28wk ob/glucose November 13, 2024 1:02p m 30 wk ob November 27, 2024 1:17 pm RULE OUT LABOR December 05, 2024 9:40 pm RULE OUT LABOR December 05, 2024 11:0 4pm 32 wk ob December 11, 2024 1:36p m 34 wk ob December 25, 2024 1:51 pm 36 wk ob January 07, 2025 2:21 pm Reason for Visit Admit Date Anxiety October 02, 2024 8:3 0am 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 October 02, 2024 8:30am Depression October 02, 2024 8:3 0am Obesity affecting October 02, 2024 8:30am October 02, 2024 8:3 0am Supervision of high-risk October 02, 2024 8:30am Low lying placenta, antepartum September 8:30am Anxiety October 18, 2024 11:33a m Depression October 18, 2024 11:33a m Headache in October 18, 2024 11:3 3am Obesity affecting October 18 11:33am October 18, 2024 11:33a m SOB (shortness of breath) October 18, 2024 11:33am Supervision of high-risk October 182024 11:33am Chest pain October 18, 2024 11:33a m Low lying placenta, antepartum October 18, 2024 11:33am Anemia affecting second October 11:33am Orthostatic lightheadedness October 18 11:33am Anxiety October 30, 2024 1:21p m 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 October 30, 2024 1:21pm Depression October 30, 2024 1:21p m Headache in October 30, 2024 1:2 1pm Obesity affecting October 30 1:21pm October 30, 2024 1:21p m SOB (shortness of breath) October 30, 2024 1:21pm Supervision of high-risk October 122024 1:21pm Chest pain October 30, 2024 1:21p m Low lying placenta, antepartum October 30, 2024 1:21pm Anxiety November 13, 2024 1:02p m Depression November 13, 2024 1:02p m Headache in November 13, 2024 1:0 2pm Obesity affecting November 13 1:02pm November 13, 2024 1:02p m Supervision of high-risk November 13, 2024 1:02pm Low lying placenta, antepartum November 13, 2024 1:02pm Anxiety November 27, 2024 1:17 pm 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 November 27, 2024 1:17pm Depression November 27, 2024 1:17 pm Headache in November 27, 2024 1: 17pm Obesity affecting November 27, 2 025 1:17pm November 27, 2024 1:17 pm SOB (shortness of breath) November 27 1:17pm Supervision of high-risk November 27, 2024 1:17pm Anxiety December 05, 2024 9:40 pm Obesity affecting December 05, 2 025 9:40pm December 05, 2024 9:40 pm Supervision of high-risk December 05, 2024 9:40pm Trauma during December 05, 2024 9:40pm Anxiety December 11, 2024 1:36p m Depression December 11, 2024 1:36p m Headache in December 11, 2024 1:3 6pm Obesity affecting December 11 1:36pm December 11, 2024 1:36p m SOB (shortness of breath) December 11, 2024 1:36pm Supervision of high-risk December 11, 2024 1:36pm Trauma during December 11, 2024 1 :36pm Anxiety December 25, 2024 1:51 pm 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 December 25, 2024 1:51pm Depression December 25, 2024 1:51 pm Headache in December 25, 2024 1: 51pm Obesity affecting December 25, 2 025 1:51pm December 25, 2024 1:51 pm SOB (shortness of breath) December 25 1:51pm Supervision of high-risk December 25, 2024 1:51pm Trauma during December 25, 2024 1:51pm Anxiety January 07, 2025 2:21 pm 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 January 07, 2025 2:21pm Depression January 07, 2025 2:21 pm Headache in January 07, 2025 2: 21pm Obesity affecting January 07, 2 025 2:21pm January 07, 2025 2:21 pm SGA (small for gestational a ge), , affecting care of mother, antepartum January 07, 2025 2:21pm SOB (shortness of breath) January 07 2:21pm Supervision of high-risk January 07, 2025 2:21pm Trauma during January 07, 2025 2:21pm Chief Complaint Admit Date 22 wk ob October 02, 2024 8:3 0am general illness, October 16, 2024 2:37pm ED Follow Up October 18, 2024 11:33a m CP October 18, 2024 11:57a m CP October 18, 2024 12:23p m 26wk ob *25w6d October 30, 2024 1:21p m 1:00 TIMED GLUCOSE DRAW November 13, 2024 1 2:47pm 28wk ob/glucose November 13, 2024 1:02p m 30 wk ob November 27, 2024 1:17 pm RULE OUT LABOR December 05, 2024 9:40 pm RULE OUT LABOR December 05, 2024 11:0 4pm 32 wk ob December 11, 2024 1:36p m 34 wk ob December 25, 2024 1:51 pm 36 wk ob January 07, 2025 2:21 pm 37 wk ob January 16, 2025 1:3 7pm Reason for Visit Admit Date Anxiety October 02, 2024 8:3 0am 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 October 02, 2024 8:30am Depression October 02, 2024 8:3 0am Obesity affecting October 02, 2024 8:30am October 02, 2024 8:3 0am Supervision of high-risk October 02, 2024 8:30am Low lying placenta, antepartum September 8:30am Anxiety October 18, 2024 11:33a m Depression October 18, 2024 11:33a m Headache in October 18, 2024 11:3 3am Obesity affecting October 18 11:33am October 18, 2024 11:33a m SOB (shortness of breath) October 18, 2024 11:33am Supervision of high-risk October 182024 11:33am Chest pain October 18, 2024 11:33a m Low lying placenta, antepartum October 18, 2024 11:33am Anemia affecting second October 11:33am Orthostatic lightheadedness October 18 11:33am Anxiety October 30, 2024 1:21p m 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 October 30, 2024 1:21pm Depression October 30, 2024 1:21p m Headache in October 30, 2024 1:2 1pm Obesity affecting October 30 1:21pm October 30, 2024 1:21p m SOB (shortness of breath) October 30, 2024 1:21pm Supervision of high-risk October 122024 1:21pm Chest pain October 30, 2024 1:21p m Low lying placenta, antepartum October 30, 2024 1:21pm Anxiety November 13, 2024 1:02p m Depression November 13, 2024 1:02p m Headache in November 13, 2024 1:0 2pm Obesity affecting November 13 1:02pm November 13, 2024 1:02p m Supervision of high-risk November 13, 2024 1:02pm Low lying placenta, antepartum November 13, 2024 1:02pm Anxiety November 27, 2024 1:17 pm 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 November 27, 2024 1:17pm Depression November 27, 2024 1:17 pm Headache in November 27, 2024 1: 17pm Obesity affecting November 27, 2 025 1:17pm November 27, 2024 1:17 pm SOB (shortness of breath) November 27 1:17pm Supervision of high-risk November 27, 2024 1:17pm Anxiety December 05, 2024 9:40 pm Obesity affecting December 05, 2 025 9:40pm December 05, 2024 9:40 pm Supervision of high-risk December 05, 2024 9:40pm Trauma during December 05, 2024 9:40pm Anxiety December 11, 2024 1:36p m Depression December 11, 2024 1:36p m Headache in December 11, 2024 1:3 6pm Obesity affecting December 11 1:36pm December 11, 2024 1:36p m SOB (shortness of breath) December 11, 2024 1:36pm Supervision of high-risk December 11, 2024 1:36pm Trauma during December 11, 2024 1 :36pm Anxiety December 25, 2024 1:51 pm 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 December 25, 2024 1:51pm Depression December 25, 2024 1:51 pm Headache in December 25, 2024 1: 51pm Obesity affecting December 25, 025 1:51pm December 25, 2024 1:51 pm SOB (shortness of breath) December 25 1:51pm Supervision of high-risk December 25, 2024 1:51pm Trauma during December 25, 2024 1:51pm Anxiety January 07, 2025 2:21 pm 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 January 07, 2025 2:21pm Depression January 07, 2025 2:21 pm Headache in January 07, 2025 2: 21pm Obesity affecting January 07, 2 025 2:21pm January 07, 2025 2:21 pm SGA (small for gestational a ge), , affecting care of mother, antepartum January 07, 2025 2:21pm SOB (shortness of breath) January 07 2:21pm Supervision of high-risk January 07, 2025 2:21pm Trauma during January 07, 2025 2:21pm Anxiety January 16, 2025 1:3 7pm 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 January 16, 2025 1:37pm Depression January 16, 2025 1:3 7pm Headache in January 16, 2025 1 :37pm Obesity affecting January 16, 2025 1:37pm January 16, 2025 1:3 7pm SGA (small for gestational a ge), , affecting care of mother, antepartum January 16, 2025 1:37pm SOB (shortness of breath) January 16 1:37pm Supervision of high-risk Augus t 2024 1:37pm Trauma during January 16, 2025 1:37pm Family History Relationship Condition Age at Onset Recorded Date/T marissa Not Specified Migraine headache Unknown grandmother Malignant neoplasm of breast Unknown Relationship Condition Age at Onset Recorded Date/T marissa Not Specified Migraine headache Unknown grandmother Malignant neoplasm of breast Unknown aunt Malignant neoplasm of breast Unknown Advance Directives Advance Directive Response Recorded Date/ Time Living Will No June 25 5:36pm Power of Office Clinician No June 25, 2020 5:36pm Advance Directive Response Recorded Date/ Time Living Will No June 25 4:36pm Power of Office Clinician No June 25, 2020 4:36pm Advance Directive Response Recorded Date/ Time Living Will No August 25, 2022 11:54am Power of Office Clinician No August 25 11:54am Advance Directive Response Recorded Date/ Time Living Will No September 23, 2022 9:11am Power of Office Clinician No September 23 9:11am Advance Directive Response Recorded Date/ Time Living Will No September 23, 2022 8:11am Power of Office Clinician No September 23 8:11am Advance Directive Response Recorded Date/ Time Do you have a [facility] Power of Office Clinician? No October 16, 2024 2:55pm Medications Administered Section Inactive Administered Medications - [...] Given 02/15/2023 3:30 PM EDT 1 Drop Summary Purpose Additional Source Comments Goals (unrecognized section and content) Goals may be documented in a n alternate sectionGoals may be documented in an alternate sectionGoals may be documented in an alternate sectionGoals may be documented in an alternate sectionGoals may be documented in an alternate sectionGoals may be documented in an alternate sectionGoals may be documented in an alternate sectionGoals may be documented in an alternate sectionGoals may be documented in an alternate sectionGoals may be documented in an alternate sectionGoals may be documented in an alternate sectionGoals may be documented in an alternate sectionGoals may be documented in an alternate sectionGoals may be documented in an alternate sectionGoals may be documented in an alternate sectionGoals may be documented in an alternate sectionGoals may be documented in an alternate sectionGoals may be documented in an alternate section Care Teams (unrecognized sec tion and content) Team Status: Active Member Role Status Dates No Primary Care Physician Primary Care Provider Active Team Status: Inactive Member Role Status Dates No Primary Care Physician Primary Care Provider, Refer ring Provider Active Dr. Lynsey Ambrocio DO Attending Provider Activ e Team Status: Inactive Member Role Status Dates No Primary Care Physician Primary Care Provider, Refer ring Provider Active Faustina Elias CNM Attending Provider Active Team Status: Inactive Member Role Status Dates No Primary Care Physician Primary Care Provider, Refer ring Provider Active Imani Sullivan ACCOUNTANT CLERK, ACCOUNTANT CLERK-C Attending Provider Active Team Status: Active Member Role Status Dates No Primary Care Physician Primary Care Provider Active Dr. Karyna Carr MD Attending Provider, Other Provider Active Team Status: Inactive Member Role Status Dates No Primary Care Physician Primary Care Provider Active Dr. Lynsey Ambrocio DO Attending Provider, Refe rring Provider Active Team Status: Inactive Member Role Status Dates No Primary Care Physician Primary Care Provider Active Dr. Lynsey Ambrocio DO Attending Provider Activ e Team Status: Inactive Member Role Status Dates No Primary Care Physician Primary Care Provider Active Dr. Karyna Carr MD Attending Provider Active Team Status: Inactive Member Role Status Dates No Primary Care Physician Primary Care Provider Active Faustina Elias CNM Attending Provider, Referring Pr ovider Active Team Status: Active Member Role Status Dates No Primary Care Physician Primary Care Provider Active Faustina Elias CNM Attending Provider , Referring Provider, Other Provider Active Team Status: Inactive Member Role Status Dates No Primary Care Physician Primary Care Provider, Refer ring Provider Active Dr. Karyna Carr MD Attending Provider Active Team Status: Active Member Role Status Dates No Primary Care Physician Primary Care Provider Active Dr. Karyna Carr MD Attending Pr ovider, Referring Provider, Other Provider Active Team Status: Active Member Role Status Dates No Primary Care Physician Primary Care Provider Active Dr. Karyna Carr MD Attending Provider, Referr ing Provider Active Team Status: Inactive Member Role Status Dates No Primary Care Physician Primary Care Provider Active Dr. Karyna Carr MD Attending Provider, Referr ing Provider Active Team Status: Active Member Role Status Dates No Primary Care Physician Primary Care Provider Active Sharri Begum CNM Attending Provider, Referring Provider, Other Provider Active Team Status: Inactive Member Role Status Dates No Primary Care Physician Primary Care Provider Active Sharri Begum CNM Attending Provider, Referring Pro vider Active Team Status: Active Member Role Status Dates No Primary Care Physician Primary Care Provider Active Imani Sullivan ACCOUNTANT CLERK, ACCOUNTANT CLERK-C Attending Provider, Referring Provider Active Team Status: Active Member Role Status Dates No Primary Care Physician Primary Care Provider Active Dr. Lynsey Ambrocio DO Admit Provider, Other Pr ovider Active Dr. Karyna Carr MD Attending Provider Active Team Status: Active Member Role Status Dates No Primary Care Physician Primary Care Provider Active Dr. Karyna Carr MD Admit Provider, Other Prov ider Active Dr. Suzette Sage MD Other Provider Act hari Dr. Lynsey Ambrocio DO Attending Provider Activ e Team Status: Inactive Member Role Status Dates No Primary Care Physician Primary Care Provider Active Dr. Karyna Carr MD Admit Provider, Attending Provider Active Dr. Suzette Sage MD Other Provider Act hari Team Status: Inactive Member Role Status Dates No Primary Care Physician Primary Care Provider Active Imani Sullivan ACCOUNTANT CLERK, ACCOUNTANT CLERK-C Attending Provider, Referring Provider Active Team Status: Inactive Member Role Status Dates No Primary Care Physician Primary Care Provider, Refer ring Provider Active Sharri Begum CNM Attending Provider Active Team Status: Inactive Member Role Status Dates No Primary Care Physician Primary Care Provider, Refer ring Provider Active Sumanth BRADSHAW PA Attending Provider Active Team Status: Inactive Member Role Status Dates No Primary Care Physician Primary Care Provider Active Imani Sullivan ACCOUNTANT CLERK, ACCOUNTANT CLERK-C Attending Provider Active Team Status: Active Member Role Status Dates Neda Keith PA PA-C Primary Care Provider Active Team Status: Inactive Member Role Status Dates No Primary Care Physician Primary Care Provider Active Start: July 06, 2024 End: July 06, 2024 No Primary Care Physician Referring Provider Active Start: July 06, 2024 End: July 06, 2024 Sharri Begum CNM Attending Provider Active S tart: July 06, 2024 End: July 06, 2024 Team Status: Inactive Member Role Status Dates No Primary Care Physician Primary Care Provider Active Start: July 06, 2024 End: July 06, 2024 Sharri Begum CNM Attending Provider Active S tart: July 06, 2024 End: July 06, 2024 Sharri Begum CNM Referring Provider Active S tart: July 06, 2024 End: July 06, 2024 Team Status: Inactive Member Role Status Dates No Primary Care Physician Primary Care Provider Active Start: July 10, 2024 End: July 10, 2024 Sharri Begum CNM Attending Provider Active S tart: July 10, 2024 End: July 10, 2024 Sharri Begum CNM Referring Provider Active S tart: July 10, 2024 End: July 10, 2024 Team Status: Inactive Member Role Status Dates No Primary Care Physician Primary Care Provider Active Start: August 07, 2024 End: August 07, 2024 No Primary Care Physician Referring Provider Active Start: August 07, 2024 End: August 07, 2024 Dr. Karyna Carr MD Attending Provider Active Start: August 07, 2024 End: August 07, 2024 Team Status: Inactive Member Role Status Dates No Primary Care Physician Primary Care Provider Active Start: September 04, 2024 End: September 04, 2024 No Primary Care Physician Referring Provider Active Start: September 04, 2024 End: September 04, 2024 Imani Sullivan NP ACCOUNTANT CLERK-C Attending Provider Active Start: September 04, 2024 End: September 04, 2024 Team Status: Inactive Member Role Status Dates No Primary Care Physician Primary Care Provider Active Start: October 02, 2024 End: October 02, 2024 No Primary Care Physician Referring Provider Active Start: October 02, 2024 End: October 02, 2024 Imani Sullivan NP ACCOUNTANT CLERK-C Attending Provider Active Start: October 02, 2024 End: October 02, 2024 Team Status: Inactive Member Role Status Dates Dr. Edwin Rome MD Attending Provider Active Sta rt: October 16, 2024 End: October 16, 2024 Dr. Edwin Rome MD Emergency Provider Active Sta rt: October 16, 2024 End: October 16, 2024 Neda Mundelein PA, PA-C Primary Care Provider Active Start: October 16, 2024 End: October 16, 2024 Team Status: Inactive Member Role Status Dates Neda Keith PA, PA-C Primary Care Provider Active Start: October 18, 2024 End: October 18, 2024 Nedajoyce Keith PA, PA-C Referring Provider Active Start: October 18, 2024 End: October 18, 2024 Imani Sullivan ACCOUNTANT CLERK, ACCOUNTANT CLERK-C Attending Provider Active Start: October 18, 2024 End: October 18, 2024 Team Status: Inactive Member Role Status Dates Neda Keith PA, PA-C Primary Care Provider Active Start: October 18, 2024 End: October 18, 2024 Imani Sullivan ACCOUNTANT CLERK, ACCOUNTANT CLERK-C Attending Provider Active Start: October 18, 2024 End: October 18, 2024 Imani Sullivan ACCOUNTANT CLERK, ACCOUNTANT CLERK-C Referring Provider Active Start: October 18, 2024 End: October 18, 2024 Team Status: Active Member Role Status Dates Neda Keith PA, PA-C Primary Care Provider Active Start: October 18, 2024 End: October 18, 2024 Dr. Manolo Merritt MD Attending Provider Active Start: October 18, 2024 End: October 18, 2024 Imani Sullivan ACCOUNTANT CLERK, ACCOUNTANT CLERK-C Referring Provider Active Start: October 18, 2024 End: October 18, 2024 Team Status: Inactive Member Role Status Dates No Primary Care Physician Referring Provider Active Start: October 30, 2024 End: October 30, 2024 Sharri Begum CNM Attending Provider Active S tart: October 30, 2024 End: October 30, 2024 Neda Keith PA, PA-C Primary Care Provider Active Start: October 30, 2024 End: October 30, 2024 Team Status: Inactive Member Role Status Dates Neda Keith PA, PA-C Primary Care Provider Active Start: November 13, 2024 End: November 13, 2024 Sharri Begum CNM Attending Provider Active S tart: November 13, 2024 End: November 13, 2024 Sharri Begum CNM Referring Provider Active S tart: November 13, 2024 End: November 13, 2024 Team Status: Inactive Member Role Status Dates No Primary Care Physician Referring Provider Active Start: November 13, 2024 End: November 13, 2024 Imani Sullivan ACCOUNTANT CLERK, ACCOUNTANT CLERK-C Attending Provider Active Start: November 13, 2024 End: November 13, 2024 Neda Keith PA, PA-C Primary Care Provider Active Start: November 13, 2024 End: November 13, 2024 Team Status: Active Member Role Status Dates Neda Keith PA, PA-C Primary Care Provider Active Start: November 13, 2024 Sharri Begum CNM Attending Provider Active S tart: November 13, 2024 Sharri Begum CNM Referring Provider Active S tart: November 13, 2024 Team Status: Inactive Member Role Status Dates Neda Keith PA, PA-C Primary Care Provider Active Start: November 27, 2024 End: November 27, 2024 Neda Keith PA, PA-C Referring Provider Active Start: November 27, 2024 End: November 27, 2024 Dr. Lynsey Ambrocio DO Attending Provider Activ e Start: November 27, 2024 End: November 27, 2024 Team Status: Inactive Member Role Status Dates Neda Keith PA, PA-C Primary Care Provider Active Start: December 05, 2024 End: December 05, 2024 Dr. Lynsey Ambrocio DO Attending Provider Activ e Start: December 05, 2024 End: December 05, 2024 Dr. Lynsey Ambrocio DO Referring Provider Activ e Start: December 05, 2024 End: December 05, 2024 Team Status: Active Member Role/Relationship Status Dates Neda Keith PA, PA-C Primary Care Provider Active Team Status: Inactive Member Role/Relationship Status Dates No Primary Care Physician Primary Care Provider Active Start: September 04, 2024 End: September 04, 2024 No Primary Care Physician Referring Provider Active Start: September 04, 2024 End: September 04, 2024 Imani Sullivan ACCOUNTANT CLERK, ACCOUNTANT CLERK-C Attending Provider Active Start: September 04, 2024 End: September 04, 2024 Team Status: Inactive Member Role/Relationship Status Dates No Primary Care Physician Primary Care Provider Active Start: October 02, 2024 End: October 02, 2024 No Primary Care Physician Referring Provider Active Start: October 02, 2024 End: October 02, 2024 Imani Sullivan ACCOUNTANT CLERK, ACCOUNTANT CLERK-C Attending Provider Active Start: October 02, 2024 End: October 02, 2024 Team Status: Inactive Member Role/Relationship Status Dates Dr. Edwin Rome MD Attending Provider Active Sta rt: October 16, 2024 End: October 16, 2024 Dr. Edwin Rome MD Emergency Provider Active Sta rt: October 16, 2024 End: October 16, 2024 Neda Sagar PA, PA-C Primary Care Provider Active Start: October 16, 2024 End: October 16, 2024 Team Status: Inactive Member Role/Relationship Status Dates Neda Keith PA, PA-C Primary Care Provider Active Start: October 18, 2024 End: October 18, 2024 Neda Sagar PA, PA-C Referring Provider Active Start: October 18, 2024 End: October 18, 2024 Imani Sullivan ACCOUNTANT CLERK, ACCOUNTANT CLERK-C Attending Provider Active Start: October 18, 2024 End: October 18, 2024 Team Status: Inactive Member Role/Relationship Status Dates Neda Mundelein PA, PA-C Primary Care Provider Active Start: October 18, 2024 End: October 18, 2024 Imani Sullivan ACCOUNTANT CLERK, ACCOUNTANT CLERK-C Attending Provider Active Start: October 18, 2024 End: October 18, 2024 Imani Sullivan ACCOUNTANT CLERK, ACCOUNTANT CLERK-C Referring Provider Active Start: October 18, 2024 End: October 18, 2024 Team Status: Active Member Role/Relationship Status Dates Neda Keith PA, PA-C Primary Care Provider Active Start: October 18, 2024 End: October 18, 2024 Dr. Manolo Merritt MD Attending Provider Active Start: October 18, 2024 End: October 18, 2024 Imani Sullivan ACCOUNTANT CLERK, ACCOUNTANT CLERK-C Referring Provider Active Start: October 18, 2024 End: October 18, 2024 Team Status: Inactive Member Role/Relationship Status Dates No Primary Care Physician Referring Provider Active Start: October 30, 2024 End: October 30, 2024 Sharri Begum CNM Attending Provider Active S tart: October 30, 2024 End: October 30, 2024 Neda Sagar PA, PA-C Primary Care Provider Active Start: October 30, 2024 End: October 30, 2024 Team Status: Inactive Member Role/Relationship Status Dates Neda Sagar PA, PA-C Primary Care Provider Active Start: November 13, 2024 End: November 13, 2024 Sharri Begum CNM Attending Provider Active S tart: November 13, 2024 End: November 13, 2024 Sharri Begum CNM Referring Provider Active S tart: November 13, 2024 End: November 13, 2024 Team Status: Inactive Member Role/Relationship Status Dates No Primary Care Physician Referring Provider Active Start: November 13, 2024 End: November 13, 2024 Imani Sullivan ACCOUNTANT CLERK, ACCOUNTANT CLERK-C Attending Provider Active Start: November 13, 2024 End: November 13, 2024 Neda Keith PA, PA-C Primary Care Provider Active Start: November 13, 2024 End: November 13, 2024 Team Status: Inactive Member Role/Relationship Status Dates Neda Mundelein PA, PA-C Primary Care Provider Active Start: November 27, 2024 End: November 27, 2024 Neda Mundelein PA, PA-C Referring Provider Active Start: November 27, 2024 End: November 27, 2024 Dr. Lynsey Ambrocio , DO Attending Provider Activ e Start: November 27, 2024 End: November 27, 2024 Team Status: Inactive Member Role/Relationship Status Dates Neda Keith PA, PA-C Primary Care Provider Active Start: December 05, 2024 End: December 05, 2024 Dr. Lynsey Ambrocio DO Attending Provider Activ e Start: December 05, 2024 End: December 05, 2024 Dr. Lynsey Ambrocio DO Referring Provider Activ e Start: December 05, 2024 End: December 05, 2024 Team Status: Active Member Role/Relationship Status Dates Neda Keith PA, PA-C Primary Care Provider Active Start: December 05, 2024 Dr. Lynsey Ambrocio DO Attending Provider Activ e Start: December 05, 2024 Dr. Lynsey Ambrocio DO Referring Provider Activ e Start: December 05, 2024 Dr. Lynsey Ambrocio , Other Provider Active Start: December 05, 2024 Team Status: Inactive Member Role/Relationship Status Dates Neda Keith PA, PA-C Primary Care Provider Active Start: December 11, 2024 End: December 11, 2024 Neda Mundelein PA, PA-C Referring Provider Active Start: December 11, 2024 End: December 11, 2024 Imani Sullivan ACCOUNTANT CLERK, ACCOUNTANT CLERK-C Attending Provider Active Start: December 11, 2024 End: December 11, 2024 Team Status: Inactive Member Role/Relationship Status Dates Neda Mundelein PA, PA-C Primary Care Provider Active Start: December 25, 2024 End: December 25, 2024 Nedajoyce Keith PA, PA-C Referring Provider Active Start: December 25, 2024 End: December 25, 2024 Dr. Lynsey Ambrocio DO Attending Provider Activ e Start: December 25, 2024 End: December 25, 2024 Team Status: Inactive Member Role/Relationship Status Dates No Primary Care Physician Primary Care Provider Active Start: October 02, 2024 End: October 02, 2024 No Primary Care Physician Referring Provider Active Start: October 02, 2024 End: October 02, 2024 Imani Sullivan ACCOUNTANT CLERK, ACCOUNTANT CLERK-C Attending Provider Active Start: October 02, 2024 End: October 02, 2024 Team Status: Inactive Member Role/Relationship Status Dates Dr. Edwin Rome MD Attending Provider Active Sta rt: October 16, 2024 End: October 16, 2024 Dr. Edwin Rome MD Emergency Provider Active Sta rt: October 16, 2024 End: October 16, 2024 Neda Keith PA, PA-C Primary Care Provider Active Start: October 16, 2024 End: October 16, 2024 Team Status: Inactive Member Role/Relationship Status Dates Neda Keith PA, PA-C Primary Care Provider Active Start: October 18, 2024 End: October 18, 2024 Neda Keith PA, PA-C Referring Provider Active Start: October 18, 2024 End: October 18, 2024 Imani Sullivan ACCOUNTANT CLERK, ACCOUNTANT CLERK-C Attending Provider Active Start: October 18, 2024 End: October 18, 2024 Team Status: Inactive Member Role/Relationship Status Dates Neda Keith PA, PA-C Primary Care Provider Active Start: October 18, 2024 End: October 18, 2024 Imani Sullivan ACCOUNTANT CLERK, ACCOUNTANT CLERK-C Attending Provider Active Start: October 18, 2024 End: October 18, 2024 Imani Sullivan ACCOUNTANT CLERK, ACCOUNTANT CLERK-C Referring Provider Active Start: October 18, 2024 End: October 18, 2024 Team Status: Active Member Role/Relationship Status Dates Neda Keith PA, PA-C Primary Care Provider Active Start: October 18, 2024 End: October 18, 2024 Dr. Manolo Merritt MD Attending Provider Active Start: October 18, 2024 End: October 18, 2024 Imani Sullivan ACCOUNTANT CLERK, ACCOUNTANT CLERK-C Referring Provider Active Start: October 18, 2024 End: October 18, 2024 Team Status: Inactive Member Role/Relationship Status Dates No Primary Care Physician Referring Provider Active Start: October 30, 2024 End: October 30, 2024 Sharri Begum CNM Attending Provider Active S tart: October 30, 2024 End: October 30, 2024 Neda Keith PA, PA-C Primary Care Provider Active Start: October 30, 2024 End: October 30, 2024 Team Status: Inactive Member Role/Relationship Status Dates Neda Keith PA, PA-C Primary Care Provider Active Start: November 13, 2024 End: November 13, 2024 Shrari Begum CNM Attending Provider Active S tart: November 13, 2024 End: November 13, 2024 Sharri Begum CNM Referring Provider Active S tart: November 13, 2024 End: November 13, 2024 Team Status: Inactive Member Role/Relationship Status Dates No Primary Care Physician Referring Provider Active Start: November 13, 2024 End: November 13, 2024 Imani Sullivan ACCOUNTANT CLERK, ACCOUNTANT CLERK-C Attending Provider Active Start: November 13, 2024 End: November 13, 2024 Neda Keith PA, PA-C Primary Care Provider Active Start: November 13, 2024 End: November 13, 2024 Team Status: Inactive Member Role/Relationship Status Dates Neda Keith PA, PA-C Primary Care Provider Active Start: November 27, 2024 End: November 27, 2024 Neda Keith PA, PA-C Referring Provider Active Start: November 27, 2024 End: November 27, 2024 Dr. Lynsey Ambrocio , DO Attending Provider Activ e Start: November 27, 2024 End: November 27, 2024 Team Status: Inactive Member Role/Relationship Status Dates Neda Keith PA, PA-C Primary Care Provider Active Start: December 05, 2024 End: December 05, 2024 Dr. Lynsey Ambrocio , Attending Provider Activ e Start: December 05, 2024 End: December 05, 2024 Dr. Lynsey Ambrocio , Referring Provider Activ e Start: December 05, 2024 End: December 05, 2024 Team Status: Active Member Role/Relationship Status Dates Neda Keith PA, PA-C Primary Care Provider Active Start: December 05, 2024 Dr. Lynsey Ambrocio DO Attending Provider Activ e Start: December 05, 2024 Dr. Lynsey Ambrocio DO Referring Provider Activ e Start: December 05, 2024 Dr. Lynsey Ambrocio DO Other Provider Active Start: December 05, 2024 Team Status: Inactive Member Role/Relationship Status Dates Neda Keith PA, PA-C Primary Care Provider Active Start: December 11, 2024 End: December 11, 2024 Neda Keith PA, PA-C Referring Provider Active Start: December 11, 2024 End: December 11, 2024 Imani Sullivan ACCOUNTANT CLERK, ACCOUNTANT CLERK-C Attending Provider Active Start: December 11, 2024 End: December 11, 2024 Team Status: Inactive Member Role/Relationship Status Dates Neda Keith PA, PA-C Primary Care Provider Active Start: December 25, 2024 End: December 25, 2024 Neda Keiht PA, PA-C Referring Provider Active Start: December 25, 2024 End: December 25, 2024 Dr. Lynsey Ambrocio DO Attending Provider Activ e Start: December 25, 2024 End: December 25, 2024 Team Status: Inactive Member Role/Relationship Status Dates Neda Keith PA, PA-C Primary Care Provider Active Start: January 07, 2025 End: January 07, 2025 Neda Keith PA, PA-C Referring Provider Active Start: January 07, 2025 End: January 07, 2025 Sharri Begum CNM Attending Provider Active S tart: January 07, 2025 End: January 07, 2025 Team Status: Active Member Role/Relationship Status Dates Neda Keith PA, PA-C Primary Care Provider Active Start: January 07, 2025 Sharri Begum CNM Attending Provider Active S tart: January 07, 2025 Team Status: Inactive Member Role/Relationship Status Dates Neda Keith PA, PA-C Primary Care Provider Active Start: January 16, 2025 End: January 16, 2025 Neda Keith PA, PA-C Referring Provider Active Start: January 16, 2025 End: January 16, 2025 Sharri Begum CNM Attending Provider Active S tart: January 16, 2025 End: January 16, 2025 Source Comments (unrecognize d section and content) In the event this informatio n is protected by the Federal Confidentiality of Alcohol and Drug Abuse Patient Records regulations: The Federal rules restrict any use of the information to criminally investigate or prosecute any alcohol or drug abuse patient.[facility] Reason for Visit (unrecogniz ed section and content) Reason Comments [facility] INFORMATION SOURCE (unrecogn ized section and content) DATE CREATED AUTHOR 02/16/2023 [facility] DATE CREATED AUTHOR AUTHOR'S ORGANIZ ATION 07/01/2023 [facility] DATE CREATED AUTHOR AUTHOR'S ORGANIZ ATION 02/16/2024 [facility] DATE CREATED AUTHOR AUTHOR'S ORGANIZ ATION 01/05/2025 [place] DATE CREATED AUTHOR AUTHOR'S ORGANIZ ATION 01/11/2025 [facility] FOR RECORDS PERTAINING TO PATIENTS WHO ARE [...] BE BASED ON THE PRIMARY CLINICAL RECORDS. [facility]. provides no warranty or guarantee of the accuracy or completeness of information in this document.
--- OUTSIDE RECORDS SUMMARY | 2025-01-17 03:48 | XMS RPT_ITS | CCD ---
Author Organization [facility] CliniSymt Care Team Providers Care Key Bed Installer Name Role Phone Care Physician, No Primary [...] Karyna Carr Attending Provider [phone] Laurie SEGMENTAL PAVER INSTALLER, SEGMENTAL PAVER INSTALLER-C Imani Attending Provider [phone] Dr. Karyna [...] Un available AUGUSTINE Breen Attending Provider Laurie SEGMENTAL PAVER INSTALLER, SEGMENTAL PAVER INSTALLER-C Imani Attending Provider [phone] CSERNYIK, YUDY DO Attending Unavailable CSERNYIK, YUDY DO Primary Care Unavailable CSERNYIK, YUDY DO Admitting Unavailable ALMAZ GORDON Attending Unavailable CHAVA EL Attending Unavailable Care Physician, No Primary Primary Care Provider Unavailable Care Physician, No Primary Referring Provider Un available Sharri Begum CNM Attending Provider [phone] Sharri Begum CNM Referring Provider [phone] Dr. Karyna Carr MD Attending Provider [place] SEGMENTAL PAVER INSTALLER-C, Imani Attending Provider Wild OROURKE, Dr. Pineda Attending Provider Wild OROURKE, Dr. Pineda Emergency Provider Kiester PA-C, Felt Primary Care Provider Kiester PA-C, Neda Referring Provider [place] SEGMENTAL PAVER INSTALLER-C, Imani Referring Provider Dr. Manolo Merritt MD Attending Provider Care Physician, No Primary Primary Care Provider Unavailable Care Physician, No Primary Referring Provider Un available Sharri Begum CNM Attending Provider [phone] Sharri Begum CNM Referring Provider [phone] Dr. Lynsey Ambrocio DO Attending Provider Dr. Lynsey Ambrocio DO Referring Provider Care Physician, No Primary Primary Care Provider Unavailable Care Physician, No Primary Referring Provider Un available Dr. Lynsey Ambrocio DO Other Provider [phone] LYNSEY PATTERSON Attending Unavailable LYNSEY PEREIRA Referring Unavailab le [facility] [facility] Zahraa Primary Care Unavailable [facility] Primary Care Unavailable KARYNA CARR Referring Unavailabl e SAMI DOWNEY Attending Unavailable [facility] Primary Care Unavailable KARYNA CARR Referring Unavailabl e ALICIA STEWART Attending Unavailable Care Physician, No Primary Primary Care Provider Unavailable Care Physician, No Primary Referring Provider Un available [place] SEGMENTAL PAVER INSTALLER-C, Imani Attending Provider Sharri Begum Referring Unavailable Sharri Begum Attending Unavailable Kiester PA, Neda Primary Care Unavailable Sharri Begum Attending Unavailable [facility], Felt Primary Care Unavailable Lynsey Ambrocio Attending Unavailabl e Kiester PA Felt Primary Care Unavailable Lynsey Ambrocio Referring Unavailabl e Laurie SEGMENTAL PAVER INSTALLER, Imani Attending Unavailable Laurie SEGMENTAL PAVER INSTALLER, Imani Referring Unavailable Kiester PA, Neda Primary Care Unavailable Care Physician, No Primary Primary Care Unava ilable Sharri Begum Attending Unavailable Sharri Begum Referring Unavailable Edwin Rome Attending Unavailable Kiester PA, Neda Primary Care Unavailable Care Physician, No Primary Primary Care Unava ilable Sharri Begum Referring Unavailable Sharri Begum Attending Unavailable Care Physician, No Primary Primary Care Unava ilable [place] SEGMENTAL PAVER INSTALLER, Imani Referring Unavailable [place] SEGMENTAL PAVER INSTALLER, Imani Attending Unavailable Laurie SEGMENTAL PAVER INSTALLER, Imani Attending Unavailable Kiester PA, Felt Primary Care Unavailable Kiester PA, Neda Referring Unavailable Sharri Begum Attending Unavailable Kiester PA, Neda Referring Unavailable Kiester PA, Felt Primary Care Unavailable Care Physician, No Primary Referring Unava ilable Sharri Begum Attending Unavailable Kiester PA, Felt Primary Care Unavailable Care Physician, No Primary Primary Care Unava ilable Care Physician, No Primary Referring Unava ilable Laurie SEGMENTAL PAVER INSTALLER, Imani Attending Unavailable Kiester PA, Neda Referring Unavailable [place] SEGMENTAL PAVER INSTALLER, Imani Attending Unavailable Kiester PA, Felt Primary Care Unavailable Annette Real Attending Unavailable Care Physician, No Primary Primary Care Unava ilable Sharri Begum Attending Unavailable Kiester PA, Neda Referring Unavailable Kiester PA, Felt Primary Care Unavailable Manolo Merritt Attending Unavailable Laurie SEGMENTAL PAVER INSTALLER, Imani Referring Unavailable Kiester PA, Neda Primary Care Unavailable Lynsey Ambrocio Consulting Unavailabl e Kiester PA, Felt Primary Care Unavailable Lynsey Ambrocio Referring Unavailabl e Lynsey Ambrocio Attending Unavailabl e Care Physician, No Primary Primary Care Unava ilable Care Physician, No Primary Referring Unava ilable Karyna Carr Attending Unavailable Care Physician, No Primary Primary Care Unava ilable Care Physician, No Primary Referring Unava ilable Laurie SEGMENTAL PAVER INSTALLER, Imani Attending Unavailable Care Physician, No Primary Primary Care Unava ilable Sharri Begum Attending Unavailable Care Physician, No Primary Referring Unava ilable Care Physician, No Primary Primary Care Unava ilable Care Physician, No Primary Referring Unava ilable [place] SEGMENTAL PAVER INSTALLER, Imani Attending Unavailable Care Physician, No Primary Primary Care Unava ilable Care Physician, No Primary Referring Unava ilable Laurie SEGMENTAL PAVER INSTALLER, Imani Attending Unavailable Kiester PA, Neda Referring Unavailable Kiester PA, Neda Primary Care Unavailable Lynsey Ambrocio Attending Unavailabl e Care Physician, No Primary Referring Unava ilable [place] SEGMENTAL PAVER INSTALLER, Imani Attending Unavailable Kiester PA, Neda Primary Care Unavailable Lynsey Ambrocio Attending [facility] Neda Kim Referring Unavailable Kiester Neda BRADSHAW Primary [facility] Unavailable Medications Current Medications Medication Drug Class(es) [...] 20 mg/ml oral solution (12 sources) Uncompetitive T-rybakx-L-aspartat e Receptor Antagonist, Sigma-1 Agonist Start: 03-01-2023 [...] / neomycin 3.5 mg/ml / polymyxin b [id number] unt/ml otic suspension (12 sources) Aminoglycoside Antibacterial, Polymyxin-class Antibacterial, Corticosteroid Start: 01-20-2023 End: 01-30-2023 Qmkyaoqx-Efukrddfm-Om 3.5-10,000-1 mg/mL-unit/mL-% drops,suspension Discontinued 3 NMA OTIC THREE TIMES A DAY 10 10 0 January 20, 2023 12:00am January 29, 2023 12:00am January 30, 2023 12:03am apply to right ear Start: 01-20-2023 End: 01-30-2023 Vjytrweq-Xlubndrcp-Zw Discon tinued 3 DRP OTIC THREE TIMES [...] B Beta Streptococcus is not isolated. Normal [facility] Comment on above: Performed By: #### M 100.8981 ####[facility] [address] [place], [place], [id number] Wellness Consultant Office Visit Reporton 01-07-2025 Wellness Consultant Office Visit Report [facility] [address], [address] [place] [address] OFFICE VISIT Date of Service: 01/07/25 MR#: [id number] Acct: [id number] Name: GRANT RUVALCABA Rep #: [id number] : 2000 Provider: SPIKE Adams ams Age/Sex: 24/F Location: [facility] Status: Signed Intake Vital Signs 11/13/24 13:07 12/25/24 13:55 01/07/25 14:27 Height 5 ft 1 in 5 ft 1 in 5 ft 1 in Weight: 198 lb 203 lb 2 oz BMI 37.4 38.3 BP 120/83 H 112/81 H Intake Visit Reasons: 36 wk ob Chief Complaint: 36wk OB Train System Operator Required: No Is patient in pain?: No [...] house number of children: 1 current occupation: [employer] current occupational exposures/hazards: No pets and animals: [...] 1-2 times per week duration: 15-30 minutes/day eveline/orthodox: Anabaptism seatbelt use: always do you feel safe at home: Yes additional social history: : [employer] History 2 Elective abortions Hx Para 1 Spontaneous abortions Hx # Term Pregnancies 1 Ectopic pregnancies Hx # Pregnancies Multiple births # of living children 1 Past Pregnancies Del. Date Name GA/Weeks Outcome Route Bth Weight Infant Gen Labor Lgth Anesthesia Del Locatn Provider FOB 09/23/22 Kate 38 live - full term 7lbs 6oz Male epidural [facility] S katia Carr Killian Delivery Date: 09/23/22 [...] -???-???-???-???-???-?? ?-???-???-? (more content not included)... Normal [facility] Screening beta-hemolytic Str eptococcus cultureOrdered By: Sharri Begum on 01-07-2025 Beta-hemolytic Streptococcus culture Group B Beta Streptococcus is not isolated. [facility] Laboratory - Chemistry and C hemistry - challengeOrdered By: Lynsey Jones on 12-25-2024 Glucose Ql (U) Negative [facility] Laboratory - UrinalysisOrder ed By: Lynsey Jones on 12-25-2024 Protein Ql (U) Negative [facility] Wellness Consultant Office Visit Reporton 12-25-2024 Wellness Consultant Office Visit Report [facility] [address], [address] [place] [address] OFFICE VISIT Date of Service: 12/25/24 MR#: [id number] Acct: [id number] Name: GRANT RUVALCABA Rep #: [id number] : 2000 Provider: Dr. Lynsey Nails DO Age/Sex: 24/F Location: [facility] Status: Signed Intake Vital Signs 10/30/24 13:25 12/11/24 13:38 12/25/24 13:55 Height 5 ft 1 in 5 ft 1 in 5 ft 1 in Weight: 198 lb BMI 37.4 BP 120/83 H Intake Visit Reasons: 34 wk ob Chief Complaint: 34wk OB Train System Operator Required: No Is patient in pain?: No [...] house number of children: 1 current occupation: [employer] current occupational exposures/hazards: No pets and animals: [...] 1-2 times per week duration: 15-30 minutes/day eveline/orthodox: Anabaptism seatbelt use: always do you feel safe [...] - full term 7lbs 6oz Male epidural [facility] S katia Carr Killian Delivery Date: 09/23/22 [...] ?-???-???-???-???-???-? ??- (more content not included)... Normal [facility] Laboratory - Chemistry and C hemistry - challengeOrdered By: Imani Sullivan on 12-11-2024 Glucose Ql (U) Negative [facility] Laboratory - UrinalysisOrder ed By: Imani Sullivan on 12-11-2024 Protein Ql (U) Trace [facility] Wellness Consultant Office Visit Reporton 12-11-2024 Wellness Consultant Office Visit Report [facility] [address], [address] [place] [address] OFFICE VISIT Date of Service: 12/11/24 MR#: [id number] Acct: [id number] Name: GRANT RUVALCABA Rep #: [id number] : 2000 Provider: SEGMENTAL PAVER INSTALLERKelsey presley Age/Sex: 24/F Location: [facility] Status: Signed Intake Vital Signs 10/30/24 13:25 12/05/24 22:00 12/11/24 13:38 Height 5 ft 1 in 5 ft 1 in 5 ft 1 in Weight: 192 lb 4 oz BMI 36.3 BP 118/86 H Intake Visit Reasons: 32 wk ob Chief Complaint: 32 Week OB Train System Operator Required: No Is patient in pain?: No [...] house number of children: 1 current occupation: [employer] current occupational exposures/hazards: No pets and animals: [...] 1-2 times per week duration: 15-30 minutes/day eveline/orthodox: Anabaptism seatbelt use: always do you feel safe [...] - full term 7lbs 6oz Male epidural [facility] S katia Carr Killian Delivery Date: 09/23/22 [...] 123/82 Negat (more content not included)... Normal [facility] Bilirubin Test strip Ql (U)O rdered By: Lynsey Jones on 12-05-2024 Bilirubin Ql (U) Negative Negative [facility] Ketones Test strip Ql (U)Ord ered By: Lynsey Jones on 12-05-2024 Ketones Ql (U) Negative Negative [facility] OB Triage Physician Noteon 0 12-05-2024 OB Triage Physician Note [facility] Medical Records Department [address] [place] [address] OB Triage Physician Note 12/05/24 2304 MR#: [id number] Acct: [id number] Name: GRANT RUVALCABA Rep #: [id number] : 2000 24 From: Lynsey Ambrocio DO PCP: Neda Keith PA-C Status:DEP CLI Y Location: [facility] - General General Date of Admission: [...] house number of children: 1 current occupation: [employer] current occupational exposures/hazards: No pets and animals: [...] 1-2 times per week duration: 15-30 minutes/day eveline/orthodox: Anabaptism seatbelt use: always do you feel safe [...] - full term 7lbs 6oz Male epidural [facility] S katia Carr Killian Delivery Date: 09/23/22 [...] lo f (more content not included)... Normal [facility] Protein Test strip Ql (U)Ord ered By: Lynsey Jones on 12-05-2024 Protein Ql (U) Negative Negative [facility] Urinalysis, Routine (Dipstic k)on 12-05-2024 BILIRUBIN URINE Negative Normal Negative [facility] Comment on above: Order Comment: FLAQUITO MILLER TO SPECIFY Performed By: #### L 400.2010 ####[facility] [address] [place], [address] GLUCOSE, UR Normal Normal Normal [facility] Comment on above: Order Comment: FLAQUITO MILLER TO SPECIFY Performed By: #### L 400.2010 ####[facility] [address] [place], [address] KETONE UR Negative Normal Negative [facility] Comment on above: Order Comment: COLLE CTOR TO SPECIFY Performed By: #### L 400.2010 ####[facility] [address] [place], [address] LEUK ESTERASE 100 /ul Abnormal Negative [facility] Comment on above: Order Comment: COLLE CTOR TO SPECIFY Performed By: #### L 400.2010 ####[facility] [address] [place], [address] OCCULT BLOOD-UR Negative Normal Negative [facility] Comment on above: Order Comment: FLAQUITO CTOR TO SPECIFY Performed By: #### L 400.2010 ####[facility] [address] [place], [address] pH UR 6.5 Normal 5.0 - 8.0 [facility] Comment on above: Order Comment: FLAQUITO CTOR TO SPECIFY Performed By: #### L 400.2010 ####[facility] [address] [place], [address] PROT DIPSTX Negative Normal Negative [facility] Comment on above: Order Comment: FLAQUITO CTOR TO SPECIFY Performed By: #### L 400.2010 ####[facility] [address] [place], [address] SP.GR. DIPSTX 1.010 Normal 1.002-1.030 [facility] Comment on above: Order Comment: FLAQUITO CTOR TO SPECIFY Performed By: #### L 400.2010 ####[facility] [address] [place], [address] UROBILI Normal Normal Normal [facility] Comment on above: Order Comment: FLAQUITO CTOR TO SPECIFY Performed By: #### L 400.2010 ####[facility] [address] [place], [address] Urine clarityOrdered By: Christina Jones on 12-05-2024 Clarity (U) Clear Clear [facility] Comment on above: Order Comment: FLAQUITO LEEOR TO SPECIFY Performed By: #### L 400.2010 ####[facility] [address] [place], [place], [id number] Urine color determinationOrd ered By: Lynsey Jones on 12-05-2024 Color (U) Yellow Yellow [facility] Comment on above: Order Comment: FLAQUITO LEEOR TO SPECIFY Performed By: #### L 400.2010 ####[facility] [address] [facility] [place], [place], [id number] Urine glucose detectionOrder ed By: Lynsey Jones on 12-05-2024 Glucose Ql (U) Normal mg/dl Normal [facility] Urine leukocyte esterase det ection by dipstickOrdered By: Lynsey Jones on 12-05-2024 Leukocyte esterase Test strip Ql (U) 100 /ul High Negative [facility] Urine nitrite test by dipsti ckOrdered By: Lynsey Jones on 12-05-2024 Nitrite Ql (U) Negative Negative [facility] Comment on above: Order Comment: FLAQUITO LEEOR TO SPECIFY Performed By: #### L 400.2010 ####[facility] [address] [place], [place], [id number] Urine pHOrdered By: Lynsey Jones on 12-05-2024 pH (U) 6.5 [pH] 5.0 - 8.0 [facility] Urine specific gravity measu rementOrdered By: Lynsey Jones on 12-05-2024 Specific gravity (U) [Rel density] 1.010 1.002-1.030 [facility] Urine urobilinogen measureme ntOrdered By: Lynsey Jones on 12-05-2024 Urobilinogen Ql (U) Normal mg/dl Normal [facility] Laboratory - Chemistry and C hemistry - challengeOrdered By: Lynsey Jones on 11-27-2024 Glucose Ql (U) Negative [facility] Laboratory - UrinalysisOrder ed By: Lynsey Jones on 11-27-2024 Protein Ql (U) Negative [facility] Wellness Consultant Office Visit Reporton 11-27-2024 Wellness Consultant Office Visit Report [facility] [address], [address] [place] [address] OFFICE VISIT Date of Service: 11/27/24 MR#: [id number] Acct: [id number] Name: GRANT RUVALCABA Rep #: [id number] : 2000 Provider: Dr. Lynsey Nails DO Age/Sex: 24/F Location: [facility] Status: Signed Intake Vital Signs 10/30/24 13:25 11/13/24 13:07 11/27/24 13:20 Height 5 ft 1 in 5 ft 1 in 5 ft 1 in Weight: 192 lb BMI 36.2 BP 109/72 Intake Visit Reasons: 30 wk ob Chief Complaint: 30 Week OB Train System Operator Required: No Is patient in pain?: No [...] house number of children: 1 current occupation: [employer] current occupational exposures/hazards: No pets and animals: [...] 1-2 times per week duration: 15-30 minutes/day eveline/orthodox: Anabaptism seatbelt use: always do you feel safe [...] - full term 7lbs 6oz Male epidural [facility] Killian Delivery Date: 09/23/22 Last [...] 123/82 Neg (more content not included)... Normal [facility] Absolute lymphocyte countOrd ered By: Sharri Begum on 11-13-2024 Lymphocytes Auto (Unsp spec) [#/Vol] 1.33 10*3/uL 0.83-4.51 [facility] Absolute neutrophil countOrd ered By: Sharri Begum on 11-13-2024 Neutrophils (Bld) [#/Vol] 7.9 10*3/uL High 2.0-7.7 [facility] Automated lymphocyte count a s percentage of total leukocytesOrdered By: Sharri Begum on 11-13-2024 Lymphocytes/100 WBC Auto (Unsp spec) 12.8 % Low 19-41 [facility] Basophil percentageOrdered B y: Sharri Begum on 11-13-2024 Basophils/100 WBC (Bld) 0.2 % 0-1 [facility] CBC W/Diff, Automatedon Absolute Lymph 1.33 X10 3/uL Normal 0.83-4.51 [facility] Comment on above: Performed By: #### L 3890.6006, L100.0100, L501.0250, L509.8002 ####[facility] [address] [place], [address] Absolute Neut 7.9 X10 3/uL High 2.0-7.7 [facility] Comment on above: Performed By: #### L 3890.6006, L100.0100, L501.0250, L509.8002 ####[facility] [address] [place], [address] Basophils/100 WBC (Bld) 0.2 % Normal 0-1 [facility] Comment on above: Performed By: #### L 3890.6006, L100.0100, L501.0250, L509.8002 ####[facility] [address] [place], [address] Eosinophils/100 WBC (Bld) 1.9 % Normal 0-5 [facility] Comment on above: Performed By: #### L 3890.6006, L100.0100, L501.0250, L509.8002 ####[facility] [address] [place], [address] Erythrocyte distribution width (RBC) [Ratio] 13.2 % Normal 11.6-14.6 [facility] Comment on above: Performed By: #### L 3890.6006, L100.0100, L501.0250, L509.8002 ####[facility] [address] [place], [address] Hematocrit (Bld) [Volume fraction] 34.6 % Low 37-47 [facility] Comment on above: Performed By: #### L 3890.6006, L100.0100, L501.0250, L509.8002 ####[facility] [address] [place], [address] Hemoglobin (Bld) [Mass/Vol] 11.8 g/dL Low 12.0-15.0 [facility] Comment on above: Performed By: #### L 3890.6006, L100.0100, L501.0250, L509.8002 ####[facility] [address] [place], [address] IG% 0.800 Normal 0.0-0.9 [facility] Comment on above: Result Comment: IG% - Immature Granulocytes (promyelocytes, myelocytes and metamyelocytes) > 1% indicates that a LEFT SHIFT is Present. Performed By: #### L 3890.6006, L100.0100, L501.0250, L509.8002 ####[facility] [address] [place], [address] Lymphocytes/100 WBC (Bld) 12.8 % Low 19-41 [facility] Comment on above: Performed By: #### L 3890.6006, L100.0100, L501.0250, L509.8002 ####[facility] [address] [place], [address] MCH (RBC) [Entitic mass] 31.6 pg Normal 27.0-32.0 [facility] Comment on above: Performed By: #### L 3890.6006, L100.0100, L501.0250, L509.8002 ####[facility] [address] [place], [address] MCHC (RBC) [Mass/Vol] 34.1 g/dL Normal 32-36 [facility] Comment on above: Performed By: #### L 3890.6006, L100.0100, L501.0250, L509.8002 ####[facility] [address] [place], [address] MCV (RBC) [Entitic vol] 92.8 fL Normal 81-99 [facility] Comment on above: Performed By: #### L 3890.6006, L100.0100, L501.0250, L509.8002 ####[facility] [address] [place], [address] Monocytes/100 WBC (Bld) 8.9 % Normal 0-10 [facility] Comment on above: Performed By: #### L 3890.6006, L100.0100, L501.0250, L509.8002 ####[facility] [address] [place], [address] Neutrophils/100 WBC (Bld) 75.4 % High 47-70 [facility] Comment on above: Performed By: #### L 3890.6006, L100.0100, L501.0250, L509.8002 ####[facility] [address] [place], [address] Nucleated RBC (Bld) [#/Vol] 0 10*3/uL Normal 0-5 [facility] Comment on above: Performed By: #### L 3890.6006, L100.0100, L501.0250, L509.8002 ####[facility] [address] [place], [address] Platelet mean volume (Bld) [Entitic vol] 10.9 fL Normal 6.2-12.0 [facility] Comment on above: Performed By: #### L 3890.6006, L100.0100, L501.0250, L509.8002 ####[facility] [address] [place], [address] Platelets (Bld) [#/Vol] 248 10*3/uL Normal 150-450 [facility] Comment on above: Performed By: #### L 3890.6006, L100.0100, L501.0250, L509.8002 ####[facility] [address] [place], [address] RBC (Bld) [#/Vol] 3.73 10*6/uL Low 4.2-5.4 [facility] Comment on above: Performed By: #### L 3890.6006, L100.0100, L501.0250, L509.8002 ####[facility] [address] [place], [address] RDW SD 44.3 fl High 35.1-43.9 [facility] Comment on above: Performed By: #### L 3890.6006, L100.0100, L501.0250, L509.8002 ####[facility] [address] [place], [address] WBC (Bld) [#/Vol] 10.4 10*3/uL Normal 4.4-11.0 [facility] Comment on above: Performed By: #### L 3890.6006, L100.0100, L501.0250, L509.8002 ####[facility] [address] [place], [address] Eosinophil percentageOrdered By: Sharri Begum on 11-13-2024 Eosinophils/100 WBC (Bld) 1.9 % 0-5 [facility] Erythrocyte distribution wid th ratioOrdered By: Sharri Begum on 11-13-2024 Erythrocyte distribution width (RBC) [Ratio] 13.2 % 11.6-14.6 [facility] Erythrocyte distribution wid th standard deviationOrdered By: Sharri Begum on 11-13-2024 Erythrocyte distribution width (RBC) [Ratio] 44.3 fl High 35.1-43.9 [facility] Glucose Challenge Gest 1H 50 purnima 11-13-2024 GLU GEST 50g 1H 95 mg/dL Normal 70-140 [facility] Comment on above: Performed By: #### L 3890.6006, L100.0100, L501.0250, L509.8002 ####[facility] [address] [place], [address] Glucose measurement at 2 donald rs post-dose gestational glucose tolerance testOrdered By: Sharri Begum on 11-13-2024 Glucose [Mass/Vol] 95 mg/dL 70-140 [facility] HIVon 11-13-2024 HIV Non-Reactive Normal Nonreactive [facility] Comment on above: Result Comment: Non- Reactive Reactive Repeatedly reactive samples must be confirmed according to CDC recommended confirmatory algorithms. The subresults for either HIVAG or AHIV can be used as an aid in the selection of the confirmation algorithm for reactive samples. Send out specimens with Reactive results to [facility] for confirmation. Order the HIV antibody detection and differentiation: #[id number] Performed By: #### L 3890.6006, L100.0100, L501.0250, L509.8002 ####[facility] [address] [place], [address] Hematocrit Auto (Bld) [Volum e fraction]Ordered By: Sharri Begum on 11-13-2024 Hematocrit (Bld) [Volume fraction] 34.6 % Low 37-47 [facility] Hemoglobin measurementOrdere d By: Sharri Begum on 11-13-2024 Hemoglobin (Bld) [Mass/Vol] 11.8 g/dL Low 12.0-15.0 [facility] Immature granulocytes/100 WB C Auto (Bld)Ordered By: Sharri Begum on 11-13-2024 Immature granulocytes/100 WBC (Bld) 0.800 % 0.0-0.9 [facility] Comment on above: IG% - Immature Granu locytes (promyelocytes, myelocytes and metamyelocytes) > 1% indicates that a LEFT SHIFT is Present. Laboratory - Chemistry and C hemistry - challengeOrdered By: Imani Sullivan on 11-13-2024 Glucose Ql (U) Negative [facility] Laboratory - UrinalysisOrder ed By: Imani Sullivan on 11-13-2024 Protein Ql (U) Negative [facility] MCV (mean corpuscular volume ) determinationOrdered By: Sharri Begum on 11-13-2024 MCV (RBC) [Entitic vol] 92.8 fL 81-99 [facility] Mean corpuscular hemoglobin (MCH) determinationOrdered By: Sharri Begum on 11-13-2024 MCH (RBC) [Entitic mass] 31.6 pg 27.0-32.0 [facility] Mean corpuscular hemoglobin concentration (MCHC) determinationOrdered By: Sharri Begum on 11-13-2024 MCHC (RBC) [Mass/Vol] 34.1 g/dL 32-36 [facility] Mean platelet volume determi nationOrdered By: Sharri Begum on 11-13-2024 Platelet mean volume (Bld) [Entitic vol] 10.9 fL 6.2-12.0 [facility] Monocyte percentageOrdered B y: Sharri Begum on 11-13-2024 Monocytes/100 WBC (Bld) 8.9 % 0-10 [facility] Neutrophil percentageOrdered By: Sharri Begum on 11-13-2024 Neutrophils/100 WBC (Bld) 75.4 % High 47-70 [facility] No Panel InformationOrdered By: Sharri Begum on 11-13-2024 HIV (1&2) Antibody Non-Reactive Nonreactive [facility] Comment on above: Non-ReactiveReactive Repeatedly reactive samples must be confirmed according to CDC recommended confirmatory algorithms. The subresults for either HIVAG or AHIV can be used as an aid in the selection of the confirmation algorithm for reactive samples.Send out specimens with Reactive results to [facility] for confirmation.Order the HIV antibody detection and differentiation: #[id number] Nucleated red blood cell per centageOrdered By: Sharri Begum on 11-13-2024 Nucleated RBC/100 WBC (Bld) [Ratio] 0 % 0-5 [facility] Wellness Consultant Office Visit Reporton 11-13-2024 Wellness Consultant Office Visit Report [facility] [address], [address] [place] [address] OFFICE VISIT Date of Service: 11/13/24 MR#: [id number] Acct: [id number] Name: GRANT RUVALCABA Rep #: [id number] : 2000 Provider: SAADIA presley Age/Sex: 24/F Location: [facility] Status: Signed Intake Vital Signs 09/04/24 15:35 10/30/24 13:25 11/13/24 13:07 Height 5 ft 5 ft 1 in 5 ft 1 in Weight: 185 lb 4 oz BMI 34.9 BP 112/78 Intake Visit Reasons: 28wk ob/glucose Chief Complaint: 28 Week OB/glucose Train System Operator Required: No Is patient in pain?: No [...] house number of children: 1 current occupation: [employer] current occupational exposures/hazards: No pets and animals: [...] 1-2 times per week duration: 15-30 minutes/day eveline/orthodox: Anabaptism seatbelt use: always do you feel safe [...] - full term 7lbs 6oz Male epidural [facility] S katia Douglaslora Killian Delivery Date: 09/23/22 Last Updated by: Jenna Ahmadi SM IAL SROM boy kate HPI 28wk ob/glucose Details: GRANT RUVALCABA is a 24 year old who presents for routine OB visit. OB Visit ERAM Calculator Estimated Delivery Date Method Current WG [...] 10 o (more content not included)... Normal [facility] Platelet countOrdered By: Baljit Begum on 11-13-2024 Platelets (Bld) [#/Vol] 248 10*3/uL 150-450 [facility] RBC Auto (Bld) [#/Vol]Ordere d By: Sharri Begum on 11-13-2024 RBC (Bld) [#/Vol] 3.73 10*6/uL Low 4.2-5.4 [facility] Syphilis Antibodieson 2024 Syphilis Abs Non-Reactive Normal Nonreactive [facility] Comment on above: Performed By: #### L 3890.6006, L100.0100, L501.0250, L509.8002 ####[facility] [address] [place], [address] White blood cell (WBC) count Ordered By: Sharri Begum on 11-13-2024 WBC (Bld) [#/Vol] 10.4 10*3/uL 4.4-11.0 [facility] Laboratory - Chemistry and C hemistry - challengeOrdered By: Sharri Begum on 10-30-2024 Glucose Ql (U) Negative [facility] Laboratory - UrinalysisOrder ed By: Sharri Begum on 10-30-2024 Protein Ql (U) Negative [facility] Wellness Consultant Office Visit Reporton 10-30-2024 Wellness Consultant Office Visit Report [facility] [address], [address] [place] [address] OFFICE VISIT Date of Service: 10/30/24 MR#: [id number] Acct: [id number] Name: GRANT RUVALCABA Rep #: [id number] : 2000 Provider: SPIKE Adams ams Age/Sex: 24/F Location: [facility] Status: Signed Intake Vital Signs 09/04/24 15:35 10/18/24 11:39 10/30/24 13:25 Height 5 ft 5 ft 1 in 5 ft 1 in Weight: 183 lb 2 oz BMI 34.6 BP 113/78 Intake Visit Reasons: 26wk ob *25w6d Chief Complaint: 26wk OB Train System Operator Required: No Is patient in pain?: No [...] house number of children: 1 current occupation: [employer] current occupational exposures/hazards: No pets and animals: [...] 1-2 times per week duration: 15-30 minutes/day eveline/orthodox: Anabaptism seatbelt use: always do you feel safe at home: Yes additional social history: : [employer] History 2 Elective abortions Hx Para 1 Spontaneous abortions Hx # Term Pregnancies 1 Ectopic pregnancies Hx # Pregnancies Multiple births # of living children 1 Past Pregnancies Del. Date Name GA/Weeks Outcome Route Bth Weight Infant Gen Labor Lgth Anesthesia Del Locatn Provider FOB 09/23/22 Kate 38 live - full term 7lbs 6oz Male epidural [facility] Zach Carr Killian Delivery Date: 09/23/22 Last [...] -???-???-???-???-???-?? ?-???-???-???-???-?? (more content not included)... 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 Rate : 89 BPM Atrial Rate : 89 BPM P-R Int : 136 ms QRS Dur : 70 ms QT Int : 346 ms P-R-T Axes : 45 16 17 degrees QTcB Int : 420 ms Normal sinus rhythm Normal ECG Confirmed by Manolo Merritt ([id number]), editor department AMANDA WATSON ([id number]) on 10/19/2024 12:54:33 PM Referred By: Imani Sullivan Confirmed By: Manolo Merritt 10/19/24 1254 Date _ Manolo Merritt MD CC: SEGMENTAL PAVER INSTALLER-Martita Sullivan; GERALDINE Keith ~ Signed [facility] Other Phone: 12 Lead EKGon 10-18-2024 12 Lead EKG [facility] Cardiovascular Services [address] [place] [address] 12 Lead EKG 10/18/24 1223 MR#: [id number] Acct: [id number] Name: RINA RUVALCABAErvin HERNANDEZ Rep #: [id number] : 2000 24 From: Manolo Merritt MD Attending Dr: SAADIA Balderas Status: REG CLI Ordering Dr: Imani Sullivan NP Date: 10/18/24 Location: [facility] Sex: F C Admitted: Test Reason : CP,DIZZY,SOB Blood Pressure : */* mmHG Vent. Rate : 89 BPM Atrial Rate : 89 BPM P-R Int : 136 ms QRS Dur : 70 ms QT Int : 346 ms P-R-T Axes : 45 16 17 degrees QTcB Int : 420 ms Normal sinus rhythm Normal ECG Confirmed by Manolo Merritt ([id number]), editor department AMANDA WATSON ([id number]) on 10/19/2024 12:54:33 PM Referred By: Imani Sullivan Confirmed By: Manolo Merritt 10/19/24 1254 Date Manolo Merritt MD CC: SEGMENTAL PAVER INSTALLER-Martita Sullivan; GERALDINE Keith Signed Normal [facility] Chest PA and Lateralon 10-18 Chest PA and Lateral [facility] Imaging Services [address] [place] [address] Chest PA and Lateral MR#: [id number] Acct: [id number] Name: GRANT RUVALCABA DAVID Rep #: [id number] : 2000 F 24 From: Davion Fisher MD PCP: Neda Keith PA-C Status: REG CLI Study: Chest PA and Lateral Date of Exam: 10/18/24 Exam# [id number] Ordering Dr: Imani Sullivan NP SEGMENTAL PAVER INSTALLER -C EXAM: XR Chest, 2 Views CLINICAL INDICATION: CHEST PAIN TECHNIQUE: Frontal and lateral views of the chest. COMPARISON: No relevant prior studies available. FINDINGS: LUNGS AND PLEURAL SPACES: Unremarkable. No consolidation. No pneumothorax. HEART: Unremarkable. No cardiomegaly. MEDIASTINUM: Unremarkable. Normal mediastinal contour. BONES/JOINTS: Unremarkable. No acute fracture. RAD/Chest PA and Lateral IMPRESSION: No acute cardiopulmonary process. Reading Location: [facility] CC: SAADIA Sullivan; GERALDINE Keith Financial Operations Clerk: Signed Normal [facility] Laboratory - Chemistry and C hemistry - challengeOrdered By: Imani Sullivan on 10-18-2024 Glucose Ql (U) Negative [facility] Laboratory - UrinalysisOrder ed By: Imani Sullivan on 10-18-2024 Protein Ql (U) Trace [facility] Wellness Consultant Office Visit Reporton 10-18-2024 Wellness Consultant Office Visit Report [address], [address] [place] [address] OFFICE VISIT Date of Service: 10/18/24 MR#: [id number] Acct: [id number] Name: GRANT RUVALCABA Rep #: [id number] : 2000 Provider: SAADIA presley Age/Sex: 24/F Location: [facility] Status: Signed Intake Vital Signs 10/16/24 14:40 10/18/24 11:39 Height 5 ft 1 in 5 ft 1 in Weight: 180 lb 8 oz BMI 34.1 BP 118/81 H Intake Visit Reasons: ED Follow Up Train System Operator Required: No Is patient in pain?: No [...] house number of children: 1 current occupation: [employer] current occupational exposures/hazards: No pets and animals: [...] 1-2 times per week duration: 15-30 minutes/day eveline/orthodox: Anabaptism seatbelt use: always do you feel safe at home: Yes additional social history: : [employer] History 2 Elective abortions Hx Para 1 Spontaneous abortions Hx # Term Pregnancies 1 Ectopic pregnancies Hx # Pregnancies Multiple births # of living children 1 Past Pregnancies Del. Date Name GA/Weeks Outcome Route Bth Weight Infant Gen Labor Lgth Anesthesia Del Locatn Provider FOB 09/23/22 Kate 38 live - full term 7lbs 6oz Male epidural [facility] Zach Carr Killian Delivery Date: 09/23/22 Last Updated by: Jenna M Ketler SM IAL SROM boy kate [facility] ED Follow Up Details: GRANT RUVALCABA [...] 160 -???-???- (more content not included)... Normal [facility] Absolute lymphocyte countOrd ered By: Edwin Rome on 10-16-2024 Lymphocytes Auto (Unsp spec) [#/Vol] 1.75 10*3/uL 0.83-4.51 [facility] Absolute neutrophil countOrd ered By: Edwinfred Rome on 10-16-2024 Neutrophils (Bld) [#/Vol] 10.8 10*3/uL High 2.0-7.7 [facility] Activated partial thrombopla stin time (aPTT) in platelet poor plasma by coagulation aOrdered By: Edwin Rome on 10-16-2024 aPTT Coag (PPP) [Time] 26.6 s 24.1-36.2 [facility] Anion gap in Serum or Plasma Ordered By: Edwin Rome on 10-16-2024 Anion gap [Moles/Vol] 10 mmol/L 5-15 [facility] Automated lymphocyte count a s percentage of total leukocytesOrdered By: Edwin Rome on 10-16-2024 Lymphocytes/100 WBC Auto (Unsp spec) 12.4 % Low 19-41 [facility] BUN/creatinine ratioOrdered By: Edwin Rome on 10-16-2024 Urea nitrogen/Creatinine [Mass ratio] 17.2 mg/mg 10-20 [facility] Basophil percentageOrdered B y: Edwin Rome on 10-16-2024 Basophils/100 WBC (Bld) 0.2 % 0-1 [facility] Bilirubin, totalOrdered By: Edwin Rome on 10-16-2024 Bilirubin [Mass/Vol] mg/dL 0.00-1.30 [facility] CBC W/Diff, Automatedon Absolute Lymph 1.75 X10 3/uL Normal 0.83-4.51 [facility] Comment on above: Performed By: #### L 100.0100, L300.3900, L300.4310, L501.1400, L500.4050 ####[facility] [address] [place], [address] Absolute Neut 10.8 X10 3/uL High 2.0-7.7 [facility] Comment on above: Performed By: #### L 100.0100, L300.3900, L300.4310, L501.1400, L500.4050 ####[facility] [address] [place], [address] Basophils/100 WBC (Bld) 0.2 % Normal 0-1 [facility] Comment on above: Performed By: #### L 100.0100, L300.3900, L300.4310, L501.1400, L500.4050 ####[facility] [address] [place], [address] Eosinophils/100 WBC (Bld) 1.6 % Normal 0-5 [facility] Comment on above: Performed By: #### L 100.0100, L300.3900, L300.4310, L501.1400, L500.4050 ####[facility] [address] [place], [address] Erythrocyte distribution width (RBC) [Ratio] 12.9 % Normal 11.6-14.6 [facility] Comment on above: Performed By: #### L 100.0100, L300.3900, L300.4310, L501.1400, L500.4050 ####[facility] [address] [place], [address] Hematocrit (Bld) [Volume fraction] 33.3 % Low 37-47 [facility] Comment on above: Performed By: #### L 100.0100, L300.3900, L300.4310, L501.1400, L500.4050 ####[facility] [address] [place], [address] Hemoglobin (Bld) [Mass/Vol] 11.7 g/dL Low 12.0-15.0 [facility] Comment on above: Performed By: #### L 100.0100, L300.3900, L300.4310, L501.1400, L500.4050 ####[facility] [address] [place], [address] IG% 0.900 Normal 0.0-0.9 [facility] Comment on above: Result Comment: IG% - Immature Granulocytes (promyelocytes, myelocytes and metamyelocytes) > 1% indicates that a LEFT SHIFT is Present. Performed By: #### L 100.0100, L300.3900, L300.4310, L501.1400, L500.4050 ####[facility] [address] [place], [address] Lymphocytes/100 WBC (Bld) 12.4 % Low 19-41 [facility] Comment on above: Performed By: #### L 100.0100, L300.3900, L300.4310, L501.1400, L500.4050 ####[facility] [address] [place], [address] MCH (RBC) [Entitic mass] 32.2 pg High 27.0-32.0 [facility] Comment on above: Performed By: #### L 100.0100, L300.3900, L300.4310, L501.1400, L500.4050 ####[facility] [address] [place], [address] MCHC (RBC) [Mass/Vol] 35.1 g/dL Normal 32-36 [facility] Comment on above: Performed By: #### L 100.0100, L300.3900, L300.4310, L501.1400, L500.4050 ####[facility] [address] [place], [address] MCV (RBC) [Entitic vol] 91.7 fL Normal 81-99 [facility] Comment on above: Performed By: #### L 100.0100, L300.3900, L300.4310, L501.1400, L500.4050 ####[facility] [address] [place], [address] Monocytes/100 WBC (Bld) 8.1 % Normal 0-10 [facility] Comment on above: Performed By: #### L 100.0100, L300.3900, L300.4310, L501.1400, L500.4050 ####[facility] [address] [place], [address] Neutrophils/100 WBC (Bld) 76.8 % High 47-70 [facility] Comment on above: Performed By: #### L 100.0100, L300.3900, L300.4310, L501.1400, L500.4050 ####[facility] [address] [place], [address] Nucleated RBC (Bld) [#/Vol] 0 10*3/uL Normal 0-5 [facility] Comment on above: Performed By: #### L 100.0100, L300.3900, L300.4310, L501.1400, L500.4050 ####[facility] [address] [place], [address] Platelet mean volume (Bld) [Entitic vol] 10.7 fL Normal 6.2-12.0 [facility] Comment on above: Performed By: #### L 100.0100, L300.3900, L300.4310, L501.1400, L500.4050 ####[facility] [address] [place], [address] Platelets (Bld) [#/Vol] 278 10*3/uL Normal 150-450 [facility] Comment on above: Performed By: #### L 100.0100, L300.3900, L300.4310, L501.1400, L500.4050 ####[facility] [address] [place], [address] RBC (Bld) [#/Vol] 3.63 10*6/uL Low 4.2-5.4 [facility] Comment on above: Performed By: #### L 100.0100, L300.3900, L300.4310, L501.1400, L500.4050 ####[facility] [address] [place], [address] RDW SD 42.5 fl Normal 35.1-43.9 [facility] Comment on above: Performed By: #### L 100.0100, L300.3900, L300.4310, L501.1400, L500.4050 ####[facility] [address] [place], [address] WBC (Bld) [#/Vol] 14.1 10*3/uL High 4.4-11.0 [facility] Comment on above: Performed By: #### L 100.0100, L300.3900, L300.4310, L501.1400, L500.4050 ####[facility] [address] [place], [address] Carbon dioxide, total [Moles /volume] in Central venous bloodOrdered By: Edwin Rome on 10-16-2024 CO2 [Moles/Vol] 20.6 mmol/L Low 21.0-32.0 [facility] Chloride assayOrdered By: Lisette Rome on 10-16-2024 Chloride [Moles/Vol] 104 mmol/L 98-108 [facility] Comprehensive Metabolic Prof ilon 10-16-2024 Albumin [Mass/Vol] 3.6 g/dL Normal 3.5-5.0 [facility] Comment on above: Performed By: #### L 100.0100, L300.3900, L300.4310, L501.1400, L500.4050 ####[facility] [address] [place], [address] Albumin/Globulin [Mass ratio] 1.2 {ratio} Normal 0.9-2.4 [facility] Comment on above: Performed By: #### L 100.0100, L300.3900, L300.4310, L501.1400, L500.4050 ####[facility] [address] [place], [address] ALK PHOS 89 U/L Normal 35-104 [facility] Comment on above: Performed By: #### L 100.0100, L300.3900, L300.4310, L501.1400, L500.4050 ####[facility] [address] [place], [address] ALT [Catalytic activity/Vol] 11 U/L Normal <=34 [facility] Comment on above: Performed By: #### L 100.0100, L300.3900, L300.4310, L501.1400, L500.4050 ####[facility] [address] [place], [address] AST [Catalytic activity/Vol] 14 U/L Normal <=31 [facility] Comment on above: Performed By: #### L 100.0100, L300.3900, L300.4310, L501.1400, L500.4050 ####[facility] [address] [place], [address] BUN/CRE 17.2 RATIO Normal 10-20 [facility] Comment on above: Performed By: #### L 100.0100, L300.3900, L300.4310, L501.1400, L500.4050 ####[facility] [address] [place], [address] Calcium [Mass/Vol] 9.3 mg/dL Normal 7.6-11.0 [facility] Comment on above: Performed By: #### L 100.0100, L300.3900, L300.4310, L501.1400, L500.4050 ####[facility] [address] [place], [address] Chloride [Moles/Vol] 104 mmol/L Normal 98-108 [facility] Comment on above: Performed By: #### L 100.0100, L300.3900, L300.4310, L501.1400, L500.4050 ####[facility] [address] [place], [address] CO2 [Moles/Vol] 20.6 mmol/L Low 21.0-32.0 [facility] Comment on above: Performed By: #### L 100.0100, L300.3900, L300.4310, L501.1400, L500.4050 ####[facility] [facility] [address] [place], [address] Creatinine [Mass/Vol] 0.50 mg/dL Low 0.70-1.20 [facility] Comment on above: Performed By: #### L 100.0100, L300.3900, L300.4310, L501.1400, L500.4050 ####[facility] [address] [place], [address] ECRCL 166.35 ml/min Normal 50-250 [facility] Comment on above: Performed By: #### L 100.0100, L300.3900, L300.4310, L501.1400, L500.4050 ####[facility] [address] [place], [address] GAP 10 Normal 5-15 [facility] Comment on above: Performed By: #### L 100.0100, L300.3900, L300.4310, L501.1400, L500.4050 ####[facility] [address] [place], [address] GFR/1.73 sq M.predicted among non-blacks MDRD (S/P/Bld) [Vol rate/Area] 134 mL/min/{1.73_m2} Normal >60 [facility] Comment on above: Result Comment: mL/m in/1.73m2 CKD-EPI Creatinine Equation (2020) Performed By: #### L 100.0100, L300.3900, L300.4310, L501.1400, L500.4050 ####[facility] [address] [place], [address] Globulin (S) [Mass/Vol] 3.1 g/dL Normal 2.2-4.2 [facility] Comment on above: Performed By: #### L 100.0100, L300.3900, L300.4310, L501.1400, L500.4050 ####[facility] [address] [place], [address] Glucose [Mass/Vol] 98 mg/dL Normal 70-99 [facility] Comment on above: Performed By: #### L 100.0100, L300.3900, L300.4310, L501.1400, L500.4050 ####[facility] [address] [place], [address] Potassium [Moles/Vol] 3.9 mmol/L Normal 3.3-5.1 [facility] Comment on above: Performed By: #### L 100.0100, L300.3900, L300.4310, L501.1400, L500.4050 ####[facility] [address] [place], [address] Sodium [Moles/Vol] 135 mmol/L Normal 133-145 [facility] Comment on above: Performed By: #### L 100.0100, L300.3900, L300.4310, L501.1400, L500.4050 ####[facility] [address] [place], [address] T BILI < 0.15 Normal 0.00-1.30 [facility] Comment on above: Performed By: #### L 100.0100, L300.3900, L300.4310, L501.1400, L500.4050 ####[facility] [address] [place], [address] T PROT 6.6 g/dL Normal 5.9-8.4 [facility] Comment on above: Performed By: #### L 100.0100, L300.3900, L300.4310, L501.1400, L500.4050 ####[facility] [address] [place], [address] Urea nitrogen [Mass/Vol] 9 mg/dL Normal 4-19 [facility] Comment on above: Performed By: #### L 100.0100, L300.3900, L300.4310, L501.1400, L500.4050 ####[facility] [address] [place], [address] Emergency Department Summary on 10-16-2024 Emergency Department Summary [facility] Medical Records Department [address] [place] [address] Emergency Department Summary 10/16/24 MR#: [id number] Acct: [id number] Name: [place] RUVALCABA Rep #: [id number] : 2000 24 From: Edwin Rome MD [...] house number of children: 1 current occupation: [employer] current occupational exposures/hazards: No pets and animals: [...] 1-2 times per week duration: 15-30 minutes/day eveline/orthodox: Anabaptism seatbelt use: always do you feel safe at home: Yes additional social history: : [place] - [employer] ROS ROS ED Constitutional Constitutional [...] constipation, me (more content not included)... Normal [facility] Eosinophil percentageOrdered By: Edwin Rome on 10-16-2024 Eosinophils/100 WBC (Bld) 1.6 % 0-5 [facility] Erythrocyte distribution wid th ratioOrdered By: Edwinfred Rome on 10-16-2024 Erythrocyte distribution width (RBC) [Ratio] 12.9 % 11.6-14.6 [facility] Erythrocyte distribution wid th standard deviationOrdered By: Edwinfred Rome on 10-16-2024 Erythrocyte distribution width (RBC) [Ratio] 42.5 fl 35.1-43.9 [facility] Glomerular filtration rate ( GFR) estimation/1.73 sq m using serum, plasma, or whole bOrdered By: Edwinfred Rome on 10-16-2024 GFR/1.73 sq M.predicted among non-blacks MDRD (S/P/Bld) [Vol rate/Area] 134 mL/min/{1.73_m2} >60 [facility] Comment on above: mL/min/1.73m2 CKD-EP I Creatinine Equation (2020) Hematocrit Auto (Bld) [Volum e fraction]Ordered By: Edwinfred Rome on 10-16-2024 Hematocrit (Bld) [Volume fraction] 33.3 % Low 37-47 [facility] Hemoglobin measurementOrdere d By: Edwin Rome on 10-16-2024 Hemoglobin (Bld) [Mass/Vol] 11.7 g/dL Low 12.0-15.0 [facility] Immature granulocytes/100 WB C Auto (Bld)Ordered By: Edwin Rome on 10-16-2024 Immature granulocytes/100 WBC (Bld) 0.900 % 0.0-0.9 [facility] Comment on above: IG% - Immature Granu locytes (promyelocytes, myelocytes and metamyelocytes) > 1% indicates that a LEFT SHIFT is Present. International normalized rat io (INR) calculationOrdered By: Edwinfred Rome on 10-16-2024 INR Coag (Bld) [Relative time] 0.9 {INR} [facility] Laboratory - Chemistry and C hemistry - challengeOrdered By: Edwinfred Rome on 10-16-2024 AST [Catalytic activity/Vol] 14 U/L <32 [facility] MCV (mean corpuscular volume ) determinationOrdered By: Edwinfred Rome on 10-16-2024 MCV (RBC) [Entitic vol] 91.7 fL 81-99 [facility] Mean corpuscular hemoglobin (MCH) determinationOrdered By: [facility] on 10-16-2024 MCH (RBC) [Entitic mass] 32.2 pg High 27.0-32.0 [facility] Mean corpuscular hemoglobin concentration (MCHC) determinationOrdered By: Edwinfred Rome on 10-16-2024 MCHC (RBC) [Mass/Vol] 35.1 g/dL 32-36 [facility] Mean platelet volume determi nationOrdered By: Edwinfred Rome on 10-16-2024 Platelet mean volume (Bld) [Entitic vol] 10.7 fL 6.2-12.0 [facility] Monocyte percentageOrdered B y: Edwinfred Rome on 10-16-2024 Monocytes/100 WBC (Bld) 8.1 % 0-10 [facility] Neutrophil percentageOrdered By: [facility] on 10-16-2024 Neutrophils/100 WBC (Bld) 76.8 % High 47-70 [facility] Nucleated red blood cell per centageOrdered By: Ewdinfred Rome on 10-16-2024 Nucleated RBC/100 WBC (Bld) [Ratio] 0 % 0-5 [facility] Partial Thromboplast Timeon 10-16-2024 aPTT Coag (Bld) [Time] 26.6 s Normal 24.1-36.2 [facility] Comment on above: Performed By: #### L 100.0100, L300.3900, L300.4310, L501.1400, L500.4050 ####[facility] [address] [place], [place], [id number] Platelet countOrdered By: fred Rome on 10-16-2024 Platelets (Bld) [#/Vol] 278 10*3/uL 150-450 [facility] Potassium measurement (mass/ volume)Ordered By: Edwinfred Rome on 10-16-2024 Potassium (Unsp spec) [Mass/Vol] 3.9 mmol/L 3.3-5.1 [facility] Prothrombin Time w/INRon INR Coag (PPP) [Relative time] 0.9 {INR} Normal [facility] Comment on above: Performed By: #### L 100.0100, L300.3900, L300.4310, L501.1400, L500.4050 ####[facility] [address] [place], [place], [address] PT Coag (PPP) [Time] 12.8 s Normal 11.7-14.9 [facility] Comment on above: Performed By: #### L 100.0100, L300.3900, L300.4310, L501.1400, L500.4050 ####[facility] [address] [place], [place], [id number] Prothrombin timeOrdered By: Edwin Rome on 10-16-2024 PT Coag (PPP) [Time] 12.8 s 11.7-14.9 [facility] RBC Auto (Bld) [#/Vol]Ordere d By: Edwin Rome on 10-16-2024 RBC (Bld) [#/Vol] 3.63 10*6/uL Low 4.2-5.4 [facility] Serum creatinine measurement (mass/volume)Ordered By: Edwin Rome on 10-16-2024 Creatinine [Mass/Vol] 0.50 mg/dL Low 0.70-1.20 [facility] Serum globulin measurementOr dered By: Edwin Rome on 10-16-2024 Globulin (S) [Mass/Vol] 3.1 g/dL 2.2-4.2 [facility] Serum glucose measurement (m ass/volume)Ordered By: Edwin Rome on 10-16-2024 Glucose [Mass/Vol] 98 mg/dL 70-99 [facility] Serum or plasma alanine corrales otransferase (ALT) measurementOrdered By: Edwin Rome on 10-16-2024 ALT [Catalytic activity/Vol] 11 U/L <35 [facility] Serum or plasma albumin ximena urement (mass/volume)Ordered By: Edwinfred Rome on 10-16-2024 Albumin [Mass/Vol] 3.6 g/dL 3.5-5.0 [facility] Serum or plasma albumin/glob ulin mass ratioOrdered By: Edwin Rome on 10-16-2024 Albumin/Globulin [Mass ratio] 1.2 {ratio} 0.9-2.4 [facility] Serum or plasma alkaline bismark sphatase measurementOrdered By: Edwinfred Rome on 10-16-2024 ALP [Catalytic activity/Vol] 89 U/L 35-104 [facility] Serum or plasma calcium ximena urement (mass/volume)Ordered By: Edwin Rome on 10-16-2024 Calcium [Mass/Vol] 9.3 mg/dL 7.6-11.0 [facility] Serum or plasma urea nitroge n measurement (mass/volume)Ordered By: Edwin Rome on 10-16-2024 Urea nitrogen [Mass/Vol] 9 mg/dL 4-19 [facility] Serum or plasma uric acid me asurement (mass/volume)Ordered By: Edwin Rome on 10-16-2024 Urate [Mass/Vol] 4.5 mg/dL 2.6-6.0 [facility] Comment on above: The drugs N-Acetylcy steine and Metamizole may falsely depress this assay. Sodium levelOrdered By: Edwin Rome on 10-16-2024 Sodium [Moles/Vol] 135 mmol/L 133-145 [facility] Total proteinOrdered By: Edwinfred Rome on 10-16-2024 Protein [Mass/Vol] 6.6 g/dL 5.9-8.4 [facility] Uric Acidon 10-16-2024 URIC 4.5 mg/dL Normal 2.6-6.0 [facility] Comment on above: Result Comment: The drugs N-Acetylcysteine and Metamizole may falsely depress this assay. Performed By: #### L 100.0100, L300.3900, L300.4310, L501.1400, L500.4050 ####[facility] [address] [place], [address] Urinalysis, Completeon 10-16 BACTERIA 0 SEEN Normal None Seen [facility] Comment on above: Order Comment: CLEAN CATCH Result Comment: SAMP LE SENT ON WRONG PT. PT DISCHARGED. Performed By: #### L 400.0001 ####[facility] [address] [place], [address] EPI,SQUAMOUS 0 SEEN Normal 5-10 [facility] Comment on above: Order Comment: CLEAN CATCH Result Comment: SAMP LE SENT ON WRONG PT. PT DISCHARGED. Performed By: #### L 400.0001 ####[facility] [address] [place], [address] Mucus Ql (Urine sed) 0 SEEN Normal [facility] Comment on above: Order Comment: CLEAN CATCH Result Comment: SAMP LE SENT ON WRONG PT. PT DISCHARGED. Performed By: #### L 400.0001 ####[facility] [address] [place], [address] RBC 0 SEEN Normal 0-5 [facility] Comment on above: Order Comment: CLEAN CATCH Result Comment: SAMP LE SENT ON WRONG PT. PT DISCHARGED. Performed By: #### L 400.0001 ####[facility] [address] [place], [address] WBC 0 SEEN Normal 0-5 [facility] Comment on above: Order Comment: CLEAN CATCH Result Comment: SAMP LE SENT ON WRONG PT. PT DISCHARGED. Performed By: #### L 400.0001 ####[facility] [address] [place], [address] BILIRUBIN URINE Normal Negative [facility] Comment on above: Order Comment: CLEAN CATCH Result Comment: SAMP LE SENT ON WRONG PT. PT DISCHARGED. Performed By: #### L 400.0001 ####[facility] [address] [place], [address] Clarity (U) Normal Clear [facility] Comment on above: Order Comment: CLEAN CATCH Result Comment: SAMP LE SENT ON WRONG PT. PT DISCHARGED. Performed By: #### L 400.0001 ####[facility] [address] [place], [address] Color (U) Normal Yellow [facility] Comment on above: Order Comment: CLEAN CATCH Result Comment: SAMP LE SENT ON WRONG PT. PT DISCHARGED. Performed By: #### L 400.0001 ####[facility] [address] [place] [id number] GLUCOSE, UR Normal Normal [facility] Comment on above: Order Comment: CLEAN CATCH Result Comment: SAMP LE SENT ON WRONG PT. PT DISCHARGED. Performed By: #### L 400.0001 ####[facility] [address] [facility] [address] KETONE UR Normal Negative [facility] Comment on above: Order Comment: CLEAN CATCH Result Comment: SAMP LE SENT ON WRONG PT. PT DISCHARGED. Performed By: #### L 400.0001 ####[facility] [address] [place] [address] LEUK ESTERASE Normal Negative [facility] Comment on above: Order Comment: CLEAN CATCH Result Comment: SAMP LE SENT ON WRONG PT. PT DISCHARGED. Performed By: #### L 400.0001 ####[facility] [address] [place], [address] Nitrite Ql (U) Normal Negative [facility] Comment on above: Order Comment: CLEAN CATCH Result Comment: SAMP LE SENT ON WRONG PT. PT DISCHARGED. Performed By: #### L 400.0001 ####[facility] [address] [facility] [address] OCCULT BLOOD-UR Normal Negative [facility] Comment on above: Order Comment: CLEAN CATCH Result Comment: SAMP LE SENT ON WRONG PT. PT DISCHARGED. Performed By: #### L 400.0001 ####[facility] [address] [place], [address] pH UR Normal 5.0 - 8.0 [facility] Comment on above: Order Comment: CLEAN CATCH Result Comment: SAMP LE SENT ON WRONG PT. PT DISCHARGED. Performed By: #### L 400.0001 ####[facility] [address] [place], [address] PROT DIPSTX Normal Negative [facility] Comment on above: Order Comment: CLEAN CATCH Result Comment: SAMP LE SENT ON WRONG PT. PT DISCHARGED. Performed By: #### L 400.0001 ####[facility] [address] [place], [address] SP.GR. DIPSTX Normal 1.002-1.030 [facility] Comment on above: Order Comment: CLEAN CATCH Result Comment: SAMP LE SENT ON WRONG PT. PT DISCHARGED. Performed By: #### L 400.0001 ####[facility] [address] [place], [address] UR Preservative Normal [facility] Comment on above: Order Comment: CLEAN CATCH Result Comment: SAMP LE SENT ON WRONG PT. PT DISCHARGED. Performed By: #### L 400.0001 ####[facility] [address] [place], [address] UROBILI Normal Normal [facility] Comment on above: Order Comment: CLEAN CATCH Result Comment: SAMP LE SENT ON WRONG PT. PT DISCHARGED. Performed By: #### L 400.0001 ####[facility] [address] [place], [address] White blood cell (WBC) count Ordered By: Edwin Rome on 10-16-2024 WBC (Bld) [#/Vol] 14.1 10*3/uL High 4.4-11.0 [facility] Laboratory - Chemistry and C hemistry - challengeOrdered By: Imani Sullivan on 10-02-2024 Glucose Ql (U) Negative [facility] Laboratory - UrinalysisOrder ed By: Imani Sullivan on 10-02-2024 Protein Ql (U) Negative [facility] Wellness Consultant Office Visit Reporton 10-02-2024 Wellness Consultant Office Visit Report [facility] [address], [address] [place] [address] OFFICE VISIT Date of Service: 10/02/24 MR#: [id number] Acct: [id number] Name: GRANT RUVALCABA Rep #: [id number] : 2000 Provider: SAADIA presley Age/Sex: 24/F Location: [facility] Status: Signed Intake Vital Signs 07/06/24 13:11 09/04/24 15:35 10/02/24 08:33 Height 5 ft 5 ft 5 ft Weight: 175 lb 2 oz BMI 34.2 BP 110/72 Intake Visit Reasons: 22 wk ob Chief Complaint: 22 Week OB Train System Operator Required: No Is patient in pain?: No [...] house number of children: 1 current occupation: [employer] current occupational exposures/hazards: No pets and animals: [...] 1-2 times per week duration: 15-30 minutes/day eveline/orthodox: Anabaptism seatbelt use: always do you feel safe at home: Yes additional social history: : [place] - [employer] History 2 Elective abortions Hx Para 1 Spontaneous abortions Hx # Term Pregnancies 1 Ectopic pregnancies Hx # Pregnancies Multiple births # of living children 1 Past Pregnancies Del. Date Name GA/Weeks Outcome Route Bth Weight Gen Labor Lgth Anesthesia Del Locatn Provider FOB 09/23/22 Kate 38 live - full term 7lbs 6oz Male epidural [facility] S katia Carr [place] Delivery Date: 09/23/22 [...] -???-???-???-???-???-?? ?-???-???- (more content not included)... Normal [facility] Laboratory - Chemistry and C hemistry - challengeOrdered By: Imani Sullivan on 09-04-2024 Glucose Ql (U) Negative [facility] Laboratory - UrinalysisOrder ed By: Imani Sullivan on 09-04-2024 Protein Ql (U) Negative [facility] Wellness Consultant Office Visit Reporton 09-04-2024 Wellness Consultant Office Visit Report [facility] [address], [address] [place] [address] OFFICE VISIT Date of Service: 09/04/24 MR#: [id number] Acct: [id number] Name: GRANT RUVALCABA Rep #: [id number] : 2000 Provider: SAADIA presley Age/Sex: 24/F Location: [facility] Status: Signed Intake Vital Signs 07/06/24 13:11 08/07/24 14:08 09/04/24 15:35 Height 5 ft 5 ft 5 ft Weight: 171 lb 8 oz BMI 33.5 BP 113/79 Intake Visit Reasons: 18 wk ob Chief Complaint: 18 Week OB Train System Operator Required: No Is patient in pain?: No [...] 1-2 times per week duration: 15-30 minutes/day eveline/orthodox: Anabaptism seatbelt use: always do you feel safe at home: Yes additional social history: : [place]ian - [employer] History 2 Elective abortions Hx Para 1 Spontaneous abortions Hx # Term Pregnancies 1 Ectopic pregnancies Hx # Pregnancies Multiple births # of living children 1 Past Pregnancies Del. Date Name GA/Weeks Outcome Route Bth Weight Gen Labor Lgth Anesthesia Del Locatn Provider FOB 09/23/22 Kate 38 live - full term 7lbs 6oz Male epidural [facility] [place] Delivery Date: 09/23/22 Last [...] -???-???-???-???-???-?? ?-???-???- (more content not included)... Normal [facility] Laboratory - Chemistry and C hemistry - challengeOrdered By: Karyna Carr on 08-07-2024 Glucose Ql (U) Negative [facility] Laboratory - UrinalysisOrder ed By: Karyna Carr on 08-07-2024 Protein Ql (U) Negative [facility] Wellness Consultant Office Visit Reporton 08-07-2024 Wellness Consultant Office Visit Report [facility] [address], [address] [place] [address] OFFICE VISIT Date of Service: 08/07/24 MR#: [id number] Acct: [id number] Name: GRANT RUVALCABA Rep #: [id number] : 2000 Provider: Dr. Karyna sales MD Age/Sex: 24/F Location: [facility] Status: Signed Intake Vital Signs 04/03/24 13:02 07/06/24 13:11 08/07/24 14:08 Height 5 ft 5 ft 5 ft Weight: 168 lb 6 oz BMI 32.8 BP 123/82 H Intake Visit Reasons: 14 wk ob Train System Operator Required: No Is patient in pain?: No [...] house number of children: 1 current occupation: [employer] current occupational exposures/hazards: No pets and animals: [...] 1-2 times per week duration: 15-30 minutes/day eveline/orthodox: Anabaptism seatbelt use: always do you feel safe at home: Yes additional social history: : [place] - [employer] History 2 Elective abortions Hx Para 1 Spontaneous abortions Hx # Term Pregnancies 1 Ectopic pregnancies Hx # Pregnancies Multiple births # of living children 1 Past Pregnancies Del. Date Name GA/Weeks Outcome Route Bth Weight Gen Labor Lgth Anesthesia Del Locatn Provider FOB 09/23/22 Kate 38 live - full term 7lbs 6oz Male epidural [facility] katia Carr [place] Delivery Date: 09/23/22 Last [...] ?-???-???-???-???-???-? ??- (more content not included)... Normal [facility] Absolute lymphocyte countOrd ered By: Sharri Begum on 07-10-2024 Lymphocytes Auto (Unsp spec) [#/Vol] 1.50 10*3/uL 0.83-4.51 [facility] Absolute neutrophil countOrd ered By: Sharri Begum on 07-10-2024 Neutrophils (Bld) [#/Vol] 7.6 10*3/uL 2.0-7.7 [facility] Automated lymphocyte count a s percentage of total leukocytesOrdered By: Sharri Begum on 07-10-2024 Lymphocytes/100 WBC Auto (Unsp spec) 14.7 % Low 19-41 [facility] Basophil percentageOrdered B y: Sharri Begum on 07-10-2024 Basophils/100 WBC (Bld) 0.2 % 0-1 [facility] CBC W/Diff, Automatedon 06-14 Absolute Lymph 1.50 X10 3/uL Normal 0.83-4.51 [facility] Comment on above: Performed By: #### L 900.0098, L100.0100, L509.4005, L509.8000, L3890.6005, L3890.6100, L3890.6300, BTS, L501.9985 ####[facility] [address] [place], [address] Absolute Neut 7.6 X10 3/uL Normal 2.0-7.7 [facility] Comment on above: Performed By: #### L 900.0098, L100.0100, L509.4005, L509.8000, L3890.6005, L3890.6100, L3890.6300, BTS, L501.9985 ####[facility] [address] [place], [address] Basophils/100 WBC (Bld) 0.2 % Normal 0-1 [facility] Comment on above: Performed By: #### L 900.0098, L100.0100, L509.4005, L509.8000, L3890.6005, L3890.6100, L3890.6300, BTS, L501.9985 ####[facility] [address] [place], [address] Eosinophils/100 WBC (Bld) 2.0 % Normal 0-5 [facility] Comment on above: Performed By: #### L 900.0098, L100.0100, L509.4005, L509.8000, L3890.6005, L3890.6100, L3890.6300, BTS, L501.9985 ####[facility] [facility] [address] [place], [address] Erythrocyte distribution width (RBC) [Ratio] 12.8 % Normal 11.6-14.6 [facility] Comment on above: Performed By: #### L 900.0098, L100.0100, L509.4005, L509.8000, L3890.6005, L3890.6100, L3890.6300, BTS, L501.9985 ####[facility] [address] [place], [address] Hematocrit (Bld) [Volume fraction] 38.8 % Normal 37-47 [facility] Comment on above: Performed By: #### L 900.0098, L100.0100, L509.4005, L509.8000, L3890.6005, L3890.6100, L3890.6300, BTS, L501.9985 ####[facility] [address] [facility] [place], [address] Hemoglobin (Bld) [Mass/Vol] 12.8 g/dL Normal 12.0-15.0 [facility] Comment on above: Performed By: #### L 900.0098, L100.0100, L509.4005, L509.8000, L3890.6005, L3890.6100, L3890.6300, BTS, L501.9985 ####[facility] [address] [facility] [place], [address] IG% 0.300 Normal 0.0-0.9 [facility] Comment on above: Result Comment: IG% - Immature Granulocytes (promyelocytes, myelocytes and metamyelocytes) > 1% indicates that a LEFT SHIFT is Present. Performed By: #### L 900.0098, L100.0100, L509.4005, L509.8000, L3890.6005, L3890.6100, L3890.6300, BTS, L501.9985 ####[facility] [address] [place], [address] Lymphocytes/100 WBC (Bld) 14.7 % Low 19-41 [facility] Comment on above: Performed By: #### L 900.0098, L100.0100, L509.4005, L509.8000, L3890.6005, L3890.6100, L3890.6300, BTS, L501.9985 ####[facility] [address] [place], [address] MCH (RBC) [Entitic mass] 30.3 pg Normal 27.0-32.0 [facility] Comment on above: Performed By: #### L 900.0098, L100.0100, L509.4005, L509.8000, L3890.6005, L3890.6100, L3890.6300, BTS, L501.9985 ####[facility] [address] [place], [address] MCHC (RBC) [Mass/Vol] 33.0 g/dL Normal 32-36 [facility] Comment on above: Performed By: #### L 900.0098, L100.0100, L509.4005, L509.8000, L3890.6005, L3890.6100, L3890.6300, BTS, L501.9985 ####[facility] [address] [place], [address] MCV (RBC) [Entitic vol] 91.7 fL Normal 81-99 [facility] Comment on above: Performed By: #### L 900.0098, L100.0100, L509.4005, L509.8000, L3890.6005, L3890.6100, L3890.6300, BTS, L501.9985 ####[facility] [address] [place], [address] Monocytes/100 WBC (Bld) 8.6 % Normal 0-10 [facility] Comment on above: Performed By: #### L 900.0098, L100.0100, L509.4005, L509.8000, L3890.6005, L3890.6100, L3890.6300, BTS, L501.9985 ####[facility] [address] [place], [address] Neutrophils/100 WBC (Bld) 74.2 % High 47-70 [facility] Comment on above: Performed By: #### L 900.0098, L100.0100, L509.4005, L509.8000, L3890.6005, L3890.6100, L3890.6300, BTS, L501.9985 ####[facility] [address] [place], [address] Nucleated RBC (Bld) [#/Vol] 0 10*3/uL Normal 0-5 [facility] Comment on above: Performed By: #### L 900.0098, L100.0100, L509.4005, L509.8000, L3890.6005, L3890.6100, L3890.6300, BTS, L501.9985 ####[facility] [address] [place], [address] Platelet mean volume (Bld) [Entitic vol] 11.2 fL Normal 6.2-12.0 [facility] Comment on above: Performed By: #### L 900.0098, L100.0100, L509.4005, L509.8000, L3890.6005, L3890.6100, L3890.6300, BTS, L501.9985 ####[facility] [address] [place], [address] Platelets (Bld) [#/Vol] 349 10*3/uL Normal 150-450 [facility] Comment on above: Performed By: #### L 900.0098, L100.0100, L509.4005, L509.8000, L3890.6005, L3890.6100, L3890.6300, BTS, L501.9985 ####[facility] [address] [place], [address] RBC (Bld) [#/Vol] 4.23 10*6/uL Normal 4.2-5.4 [facility] Comment on above: Performed By: #### L 900.0098, L100.0100, L509.4005, L509.8000, L3890.6005, L3890.6100, L3890.6300, BTS, L501.9985 ####[facility] [address] [place], [address] RDW SD 43.0 fl Normal 35.1-43.9 [facility] Comment on above: Performed By: #### L 900.0098, L100.0100, L509.4005, L509.8000, L3890.6005, L3890.6100, L3890.6300, BTS, L501.9985 ####[facility] [address] [place], [address] WBC (Bld) [#/Vol] 10.2 10*3/uL Normal 4.4-11.0 [facility] Comment on above: Performed By: #### L 900.0098, L100.0100, L509.4005, L509.8000, L3890.6005, L3890.6100, L3890.6300, BTS, L501.9985 ####[facility] [address] [place], [address] Chlamydia/GC SHANITA aptimaon CHLAMY,NUC ACID Negative Normal Negative [facility] Comment on above: Performed By: #### M 100.2200, L7000.1800 ####[facility] [address] [place], [place], [id number] GC BY NUC ACID Negative Normal Negative [facility] Comment on above: Result Comment: Perf ormed at: =G - [facility] [address] [place] [id number] Yeast Washer: Lise Chaparro MD, Phone: [phone] Performed By: #### M 100.2200, L7074.1800 ####[facility] [address] [place], [place], [address] Eosinophil percentageOrdered By: Sharri Begum on 07-10-2024 Eosinophils/100 WBC (Bld) 2.0 % 0-5 [facility] Erythrocyte distribution wid th ratioOrdered By: Sharri Begum on 07-10-2024 Erythrocyte distribution width (RBC) [Ratio] 12.8 % 11.6-14.6 [facility] Erythrocyte distribution wid th standard deviationOrdered By: Sharri Begum on 07-10-2024 Erythrocyte distribution width (RBC) [Ratio] 43.0 fl 35.1-43.9 [facility] HIV - WCHon 07-10-2024 HIV Non-Reactive Normal Nonreactive [facility] Comment on above: Order Comment: Reaso n for Exam: Performed By: #### L 900.0098, L100.0100, L509.4005, L509.8000, L3890.6005, L3890.6100, L3890.6300, BTS, L501.9985 ####[facility] [address] [place], [place], [address] HIV 1 and HIV-2 antibody ass ay with HIV-1 p24 antigen detectionOrdered By: Sharri Begum on 07-10-2024 HIV 1+2 Ab+HIV1 p24 Ag IA Ql Non-Reactive Nonreactive [facility] Hematocrit Auto (Bld) [Volum e fraction]Ordered By: Sharri Begum on 07-10-2024 Hematocrit (Bld) [Volume fraction] 38.8 % 37-47 [facility] Hemoglobin A1con 07-10-2024 HbA1c (Bld) [Mass fraction] 5.0 % Normal 3.8-5.6 [facility] Comment on above: Result Comment: Norm al < 5.7 % Prediabetic 5.7 - 6.4 % Diabetic >or= 6.5 % Please note range changes. Performed By: #### L 900.0098, L100.0100, L509.4005, L509.8000, L3890.6005, L3890.6100, L3890.6300, BTS, L501.9985 ####[facility] [address] [place], [place], [id number] Hemoglobin A1c percentageOrd ered By: Sharri Begum on 07-10-2024 HbA1c (Bld) [Mass fraction] 5.0 % 3.8-5.6 [facility] Comment on above: Normal < 5.7 % Predi abetic 5.7 - 6.4 % Diabetic >or= 6.5 % Please note range changes. Hemoglobin measurementOrdere d By: Sharri Begum on 07-10-2024 Hemoglobin (Bld) [Mass/Vol] 12.8 g/dL 12.0-15.0 [facility] Hepatitis B Surface Antigeno n 07-10-2024 HEP B Surf Ag Non-Reactive Normal Nonreactive [facility] Comment on above: Order Comment: Reaso n for Exam: Performed By: #### L 900.0098, L100.0100, L509.4005, L509.8000, L3890.6005, L3890.6100, L3890.6300, BTS, L501.9985 ####[facility] [address] [place], [place], [id number] Hepatitis C Antibodyon 07-10 Hepatitis C AB Non-Reactive Normal Nonreactive [facility] Comment on above: Order Comment: Reaso n for Exam: Result Comment: Non Reactive: < 0.8 Equivocal: >/= 0.8 to < 1.0 Reactive: >/= 1.0 The CDC requires that a reactive/equivocal HCV antibody result be sent out for confirmation. HCV Quant by PCR testing. Performed By: #### L 900.0098, L100.0100, L509.4005, L509.8000, L3890.6005, L3890.6100, L3890.6300, BTS, L501.9985 ####[facility] [address] [place], [address] Immature granulocytes/100 WB C Auto (Bld)Ordered By: Sharri Begum on 07-10-2024 Immature granulocytes/100 WBC (Bld) 0.300 % 0.0-0.9 [facility] Comment on above: IG% - Immature Granu locytes (promyelocytes, myelocytes and metamyelocytes) > 1% indicates that a LEFT SHIFT is Present. L509.8000on 07-10-2024 Syphilis Abs Non-Reactive Normal [facility] Comment on above: Order Comment: Reaso n for Exam: Performed By: #### L 900.0098, L100.0100, L509.4005, L509.8000, L3890.6005, L3890.6100, L3890.6300, BTS, L501.9985 ####[facility] [address] [place], [address] MCV (mean corpuscular volume ) determinationOrdered By: Sharri Begum on 07-10-2024 MCV (RBC) [Entitic vol] 91.7 fL 81-99 [facility] Mean corpuscular hemoglobin (MCH) determinationOrdered By: Sharri Begum on 07-10-2024 MCH (RBC) [Entitic mass] 30.3 pg 27.0-32.0 [facility] Mean corpuscular hemoglobin concentration (MCHC) determinationOrdered By: Sharri Begum on 07-10-2024 MCHC (RBC) [Mass/Vol] 33.0 g/dL 32-36 [facility] Mean platelet volume determi nationOrdered By: Sharri Begum on 07-10-2024 Platelet mean volume (Bld) [Entitic vol] 11.2 fL 6.2-12.0 [facility] Monocyte percentageOrdered B y: Sharri Begum on 07-10-2024 Monocytes/100 WBC (Bld) 8.6 % 0-10 [facility] NATERAon 07-10-2024 NATURA SEE SCANNED REPORT Normal [facility] Comment on above: Performed By: #### L 900.0098, L100.0100, L509.4005, L509.8000, L3890.6005, L3890.6100, L3890.6300, BTS, L501.9985 ####[facility] [address] [place], [place], [id number] Neutrophil percentageOrdered By: Sharri Begum on 07-10-2024 Neutrophils/100 WBC (Bld) 74.2 % High 47-70 [facility] Nucleated red blood cell per centageOrdered By: Sharri Begum on 07-10-2024 Nucleated RBC/100 WBC (Bld) [Ratio] 0 % 0-5 [facility] Platelet countOrdered By: Baljit Begum on 07-10-2024 Platelets (Bld) [#/Vol] 349 10*3/uL 150-450 [facility] RBC Auto (Bld) [#/Vol]Ordere d By: Sharri Begum on 07-10-2024 RBC (Bld) [#/Vol] 4.23 10*6/uL 4.2-5.4 [facility] Rubella IgGon 07-10-2024 Rubella IgG Reactive Normal Nonreactive [facility] Comment on above: Order Comment: Reaso n for Exam: Result Comment: Anti body Results Interpretation of Immune Status Non Reactive Presumed Non-Immune Equivocal Equivocal Reactive Presumed Immune Performed By: #### L 900.0098, L100.0100, L509.4005, L509.8000, L3890.6005, L3890.6100, L3890.6300, BTS, L501.9985 ####[facility] [address] [place], [place], [id number] Serum Treponema species anti body detectionOrdered By: Sharri Begum on 07-10-2024 Treponema sp Ab Ql (S) Non-Reactive [facility] Type AND Screenon 07-10-2024 ABO and Rh group Nom (Bld) Blood group O Rh(D) positive Normal [facility] Comment on above: Order Comment: PN Performed By: #### L 900.0098, L100.0100, L509.4005, L509.8000, L3890.6005, L3890.6100, L3890.6300, BTS, L501.9985 ####[facility] [address] [place], [address] White blood cell (WBC) count Ordered By: Sharri Begum on 07-10-2024 WBC (Bld) [#/Vol] 10.2 10*3/uL 4.4-11.0 [facility] Urine Cultureon 07-08-2024 URC Mixed Gram Positive Organisms [place] Count 1000-10,000 MIXC Mixed contaminants. Submit a new specimen if indicated. Normal [facility] Comment on above: Performed By: #### M 100.2200, L7000.1800 ####[facility] [address] [place], [place], [address] Chlamydia trachomatis rRNA d etection by probe and target amplification methodOrdered By: Sharri Begum on 07-06-2024 C. trachomatis rRNA SHANITA+probe Ql (Unsp spec) Negative Negative [facility] Neisseria gonorrhoeae nuclei c acid detection by amplified probe techniqueOrdered By: Sharri Begum on 07-06-2024 N. gonorrhoeae DNA SHANITA+probe Ql (Unsp spec) Negative Negative [facility] Comment on above: Performed at: =[address] [id number] Director: Lise Chaparro MD, Phone: [phone] Wellness Consultant Office Visit Reporton 07-06-2024 Wellness Consultant Office Visit Report [facility] [address], [address] [place] [address] OFFICE VISIT Date of Service: 07/06/24 MR#: [id number] Acct: [id number] Name: GRANT RUVALCABA Rep #: [id number] : 2000 Provider: SPIKE Adams ams Age/Sex: 24/F Location: [facility] Status: Signed Intake Vital Signs 04/03/24 13:02 07/06/24 13:08 07/06/24 13:11 Height 5 ft 5 ft 5 ft Weight: 171 lb BMI 33.4 BP 115/78 Intake Visit Reasons: New OB, LMP 05/02, ERMA 02/06/25 Train System Operator Required: No Is patient in pain?: No [...] house number of children: 1 current occupation: [employer] current occupational exposures/hazards: No pets and animals: [...] 1-2 times per week duration: 15-30 minutes/day eveline/orthodox: Anabaptism seatbelt use: always do you feel safe [...] - full term 7lbs 6oz Male epidural [facility] S katia Daily Delivery Date: 09/23/22 Last [...] Period: 05/02/24 (more content not included)... Normal [facility] Urine cultureOrdered By: Luis Begum on 07-06-2024 Bacteria identified Cx Nom (U) Positive Abnormal [facility] PAP IG HPV APTIMA 16/18,45on 04-11-2024 ADEQ Comment Normal . [facility] Comment on above: Order Comment: Speci men Comment: [id number] Comment: Source.............CervixSpecimen Comment: LMP / Prev Treat...[id number] Comment: No. of containers..01 ThinPrep Vial Result Comment: Sati sfactory for evaluation. Endocervical and/or squamous metaplastic cells (endocervical component) are present. Performed By: #### L 7400.0280 ####[facility] [address] [place], [address] COMM . Normal . [facility] Comment on above: Order Comment: Speci men Comment: [id number] Comment: Source.............CervixSpecimen Comment: LMP / Prev Treat...[id number] Comment: No. of containers..01 ThinPrep Vial Performed By: #### L 7400.0280 ####[facility] [address] [place], [place], [id number] COMMENT Comment Normal . [facility] Comment on above: Order Comment: Speci men Comment: [id number] Comment: Source.............CervixSpecimen Comment: LMP / Prev Treat...[id number] Comment: No. of containers..01 ThinPrep Vial Result Comment: This liquid based ThinPrep(R) pap test was screened with the use of an image guided system. Performed By: #### L 7400.0280 ####[facility] [address] [place], [place], [id number] DIAG Comment Normal . [facility] Comment on above: Order Comment: Speci men Comment: [id number] Comment: Source.............CervixSpecimen Comment: LMP / Prev Treat...[id number]=[id number] Comment: No. of containers..01 ThinPrep Vial Result Comment: NEGA TIVE FOR INTRAEPITHELIAL LESION OR MALIGNANCY. THIS SPECIMEN WAS RESCREENED PART OF OUR VOCATIONAL DIRECTOR PROGRAM. Performed By: #### L 7400.0280 ####[facility] [address] [place], [address] HPV APTIMA, HR Negative Normal Negative [facility] Comment on above: Order Comment: Speci men Comment: [id number] Comment: Source.............CervixSpecimen Comment: LMP / Prev Treat...[id number] Comment: No. of containers..01 ThinPrep Vial Result Comment: This nucleic acid amplification test detects fourteen high- risk HPV types (16,18,31,33,35,39,45,51,52,56,58,59,66,68) without differentiation. Performed By: #### L 7400.0280 ####[facility] [address] [place], [place], [address] HPV Alisson Rfx Comment Normal . [facility] Comment on above: Order Comment: Speci men Comment: [id number] Comment: Source.............CervixSpecimen Comment: LMP / Prev Treat...[id number] Comment: No. of containers..01 ThinPrep Vial Result Comment: Crit missy not met, HPV Genotype not performed. Performed at: - [address] [id number] Yeast Washer: Lise Chaparro MD, Phone: [phone] Performed at: =G - [facility] [address] [id number] Yeast Washer: Lise Chaparro MD, Phone: [phone] Performed By: #### L 7400.0280 ####[facility] [address] [place], [place], [id number] PAPSMR Comment Normal . [facility] Comment on above: Order Comment: Speci men Comment: [id number] Comment: Source.............CervixSpecimen Comment: LMP / Prev Treat...[id number] Comment: No. of containers..01 ThinPrep Vial Result Comment: The Pap smear is a screening test designed to aid in the detection of premalignant and malignant conditions of the uterine cervix. It is not a diagnostic procedure and should not be used as the sole means of detecting cervical cancer. Both false-positive and false-negative reports do occur. Performed By: #### L 7400.0280 ####[facility] [address] [place], [place], [address] PERFORM Comment Normal . [facility] Comment on above: Order Comment: Speci men Comment: [id number] Comment: Source.............CervixSpecimen Comment: LMP / Prev Treat...[id number] Comment: No. of containers..01 ThinPrep Vial Result Comment: Anais Aguilera, Dealer Analyst (ASCP) Performed By: #### L 7400.0280 ####[facility] [address] [place], [place], [address] QC REV Comment Normal . [facility] Comment on above: Order Comment: Speci men Comment: [id number] Comment: Source.............CervixSpecimen Comment: LMP / Prev Treat...[id number] Comment: No. of containers..01 ThinPrep Vial Result Comment: Lela De Oliveira, Dealer Analyst (ASCP) Performed By: #### L 7400.0280 ####[facility] [address] [place], [place], [address] Thyroid Peroxidase ABon 03-14 THYR PEROX AB 17 IU/mL Normal 0-34 [facility] Comment on above: Result Comment: Perf ormed at: CB - [facility] [address] [id number] Yeast Washer: Clyde Linda PhD, Phone: [phone] Performed By: #### L 506.1000, J130.3861, C501.2930, A1988.0613 ####[facility] [address] [place], [place], [address] Wellness Consultant Office Visit Reporton 04-03-2024 Wellness Consultant Office Visit Report [facility] [address], [address] [place] [address] OFFICE VISIT Date of Service: 04/03/24 MR#: [id number] Acct: [id number] Name: GRANT [place] Rep #: [id number] : 2000 Provider: SAADIA presley Age/Sex: 24/F Location: 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 Normal [facility] T4 Free Directon 04-03-2024 T4 FREE DIRECT 0.81 ng/dL Normal 0.76-1.46 [facility] Comment on above: Performed By: #### L 506.1000, L501.9520, L506.0400, L3300.6900 ####[facility] [address] [place], [address] Thyroid Stim Hormone (TSH)on 04-03-2024 TSH 3.310 uIU/mL Normal 0.358-3.740 [facility] Comment on above: Performed By: #### L 506.1000, L501.9520, L506.0400, L3300.6900 ####[facility] [address] [place], [address] Vitamin D,25 Hydroxyon 04-03 Vitamin D 25-OH 55.1 ng/mL Normal [facility] Comment on above: Result Comment: Ngozi min D 25(OH) Status Range Deficiency <20 ng/mL (50nmol/L) Insufficiency 20 - 30 ng/mL (50 - 75 nmol/L) Sufficiency 30 - 100 ng/mL (75 - 250 nmol/L) Toxicity >100 ng/mL (>250 nmol/L) Performed By: #### L 506.1000, L501.9520, L506.0400, L3300.6900 ####[facility] [address] [place], [place], [address] Wellness Consultant Office Visit Reporton 03-13-2024 Wellness Consultant Office Visit Report [facility] [address], [address] [place] [address] OFFICE VISIT Date of Service: 03/13/24 MR#: [id number] Acct: [id number] Name: GRANT [place] Rep #: [id number] : 2000 Provider: SAADIA presley Age/Sex: 23/F Location: 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 She also wants to go to [place] in October 2024 and wants to know [...] 38 live - full term Male epidural [facility] vernell Magaly Daily Delivery Date: 09/23/22 Last [...] Depression, unspecified (more content not included)... Normal [facility] EMERGENCY REPORTon 4 EMERGENCY REPORT [facility] EMERGENCY ROOM REPORT NAME ACCOUNT SEX AGE ADMIT DISCHARGE PT MED. RECORD# NUMBER DATE DATE TYPE PATTI [id number] F 06/19/23 06/19/23 3 GRANT Reyes [id number] ROOM: ER DATE OF : 2000 DICTATING [...] Yudy Matthews DO 06/19/23 09:36 JOB #: [id number] Transcribed By: am 06/20/23 07:05 Electronically signed by: Dr. Yudy Matthews DO 06/30/23 08:36 Page 2 of 2 GRANT ARMSTRONG Emergency Room Report Normal [facility] EMERGENCY REPORT [facility] EMERGENCY ROOM REPORT NAME ACCOUNT SEX AGE ADMIT DISCHARGE PT MED. RECORD# NUMBER DATE DATE TYPE PATTI [id number] F 06/19/23 06/19/23 3 GRANT Reyes [id number] ROOM: ER DATE OF : 2000 DICTATING [...] is to push clear fluids, cough medicine [id number] as needed. She is to followup with primary care physician in 3 to 5 days as needed, sooner if worse or return. Dictated By: Yudy Matthews DO 06/19/23 10:00 JOB #: [id number] Transcribed By: am 06/20/23 07:17 Electronically signed by: Dr. Yudy Matthews, 06/30/23 08:36 Page 1 of 1 GRANT ARMSTRONG Emergency Room Report Normal [facility] BMP with eGFRon 06-19-2023 AGE 23 years Normal [facility] Comment on above: Performed By: #### 2 [id number] #### [facility],[address] [place] [address] 66354 Anion gap [Moles/Vol] 16 mmol/L Normal 10 - 20 [facility] Comment on above: Performed By: #### 2 66778 #### [facility],[address] [place] [address] 99431 BMP with eGFR Normal [facility] Comment on above: Result Comment: BASI C METABOLIC PANEL Performed By: #### 2 27849 #### [facility],[address] [place] [address] 92203 Calcium [Mass/Vol] 8.9 mg/dL Normal 8.5 - 10.1 [facility] Comment on above: Performed By: #### 2 02134 #### [facility],[address] [place] [address] 18425 Chloride [Moles/Vol] 100 mmol/L Normal 98 - 107 [facility] Comment on above: Performed By: #### 2 10746 #### [facility],[address] [place] [address] 38946 CO2 [Moles/Vol] 22.4 mmol/L Normal 21.0 - 32.0 [facility] Comment on above: Performed By: #### 2 77647 #### [facility],[address] [place] [address] 43220 Creatinine [Mass/Vol] 0.72 mg/dL Normal 0.55 - 1.02 [facility] Comment on above: Performed By: #### 2 73928 #### [facility],[address] [place] [address] 02057 GFR/1.73 sq M.predicted among non-blacks MDRD (S/P/Bld) [Vol rate/Area] mL/min/{1.73_m2} Normal 60 - 999 [facility] Comment on above: Performed By: #### 2 03331 #### [facility],[address] [place] [address] Result Comment: ACCO RDING TO THE NATIONAL KIDNEY DISEASE EDUCATION PROGRAM(NKDE), A NORMAL eGFR IS A VALUE GREATER THAN OR EQUAL TO 60 ML/MIN/1.73 SQ METERS. CHRONIC KIDNEY DISEASE: <60mL/MIN/1.73 SQ METERS KIDNEY FAILURE: <15mL/MIN/1.73 SQ METERS THIS TEST SHOULD ONLY BE USED FOR PATIENTS 18 YEARS OF AGE AND OLDER. Glucose [Mass/Vol] 99 mg/dL Normal 74 - 106 [facility] Comment on above: Performed By: #### 2 64471 #### [place] [address] Potassium [Moles/Vol] 3.6 mmol/L Normal 3.5 - 5.1 [facility] Comment on above: Performed By: #### 2 40804 #### [place] [address] Sodium [Moles/Vol] 135 mmol/L Low 136 - 145 [facility] Comment on above: Performed By: #### 2 55509 #### [place] [address] Urea nitrogen [Mass/Vol] 10 mg/dL Normal 7 - 18 [facility] Comment on above: Performed By: #### 2 26472 #### [place] [id number] CBC + DIFFon 06-19-2023 Baso # 0.00 x10EE3/UL Normal 0.00 - 0.10 [facility] Comment on above: Performed By: #### 2 84776 #### [place] [phone] Basophils/100 WBC (Bld) 0.3 % Normal 0.0 - 2.0 [facility] Comment on above: Performed By: #### 2 92068 #### [facility],[address] [place] [address] CBC + DIFF Normal [facility] Comment on above: Result Comment: CBC- COMPLETE BLOOD COUNT Performed By: #### 2 77808 #### [facility],[address] [place] [address] EO # 0.00 x10EE3/UL Normal 0.00 - 0.50 [facility] Comment on above: Performed By: #### 2 75821 #### [facility],[address] [place] [address] Eosinophils/100 WBC (Bld) 0.0 % Normal 0.0 - 7.0 [facility] Comment on above: Performed By: #### 2 39646 #### [facility],[address] [place] [address] Erythrocyte distribution width (RBC) [Ratio] 12.7 % Normal 12.0 - 15.6 [facility] Comment on above: Performed By: #### 2 36942 #### [facility],[address] [place] [address] Hematocrit (Bld) [Volume fraction] 38.0 % Normal 34.0 - 46.0 [facility] Comment on above: Performed By: #### 2 43954 #### [facility],[address] [place] [address] Hemoglobin (Bld) [Mass/Vol] 12.7 g/dL Normal 12.0 - 16.0 [facility] Comment on above: Performed By: #### 2 75631 #### [facility],[address] [place] [address] Lymph # 0.40 x10EE3/UL Low 0.80 - 2.80 [facility] Comment on above: Performed By: #### 2 39395 #### [facility],[address] [place] [address] Lymphocytes/100 WBC (Bld) 5.4 % Low 20.0 - 45.0 [facility] Comment on above: Performed By: #### 2 70002 #### [facility],[address] [place] [address] MANUAL DIFF N/A Normal [facility] Comment on above: Performed By: #### 2 35793 #### [facility],[address] [place] [address] MCH (RBC) [Entitic mass] 31 pg Normal 27 - 33 [facility] Comment on above: Performed By: #### 2 70386 #### [facility],[address] [place] [address] MCHC 34 X10 3 Normal 32 - 36 [facility] Comment on above: Performed By: #### 2 18765 #### [facility],[address] [place] [address] MCV (RBC) [Entitic vol] 91 fL Normal 80 - 99 [facility] Comment on above: Performed By: #### 2 62932 #### [facility],[address] [place] [address] [place] # 0.90 x10EE3/UL Normal 0.20 - 1.00 [facility] Comment on above: Performed By: #### 2 86854 #### [facility],[address] [place] [address] MONOS % 12.8 % High 0.0 - 10.0 [facility] Comment on above: Performed By: #### 2 33632 #### [facility],[address] [place], [place] [id number] Morphology Ko (Bld) [Interp] N/A Normal [facility] Comment on above: Result Comment: {CD] Performed By: #### 2 45558 #### [facility],[address] [place] [address] 53480 Neut # 6.00 x10EE3/UL Normal 1.50 - 7.10 [facility] Comment on above: Performed By: #### 2 62802 #### [facility],[address] [place] [address] 45489 Neutrophils/100 WBC (Bld) 81.5 % High 46.0 - 76.0 [facility] Comment on above: Performed By: #### 2 68595 #### [facility],[address] [place] [address] 87734 PLATELET 213 x10EE3/UL Normal 150 - 450 [facility] Comment on above: Performed By: #### 2 96694 #### [facility],[address] [place] [address] 86983 Platelet mean volume (Bld) [Entitic vol] 9.1 fL Normal 6.6 - 10.5 [facility] Comment on above: Result Comment: AUTO MATED DIFFERENTIAL Performed By: #### 2 13184 #### [facility],[address] [place] [address] 65520 RBC 4.18 x 10EE6/UL Normal 4.10 - 5.30 [facility] Comment on above: Performed By: #### 2 05289 #### [facility],[address] [place] [address]67 WBC 7.3 x 10EE3/UL Normal 4.5 - 10.8 [facility] Comment on above: Performed By: #### 2 96839 #### [facility],[address] [place] [address] 92396 CHEST 2 VIEWSon 06-19-2023 CHEST 2 VIEWS [place] [address] Patient: GRANT ARMSTRONG Phone#: : 2000 Age: 23 Gender: F Pt. Type: ER Account: [id number] Location: [facility] Ordering: YUDY MATTHEWS Exam Date: 06/19/2023/9:13 Family Phys: Charge Code: [id number] Physician: [place] Order #: [id number] Dose#: PROCEDURE: X-RAY CHEST 2 VIEWS COMPARISON: [...] Orellana MD on 06/19/2023 at 16:39 Normal [facility] CORONAVIRUS (SARS) ANTIGEN T ESTon 06-19-2023 EXTERNAL QC DONE? YES Normal [facility] Comment on above: Performed By: #### 2 72945 #### [facility],[address] [place] [address] INTERNAL CONTROL PASS Normal [facility] Comment on above: Performed By: #### 2 21270 #### [facility],[address] [place] [address] 83918 SARS ANTIGEN Negative Normal NORMAL: NEGATIVE [facility] Comment on above: Performed By: #### 2 43283 #### [facility],[address] [place], [place] [id number] SEND TO ? YES Normal [facility] Comment on above: Result Comment: SARS -CoV-2 THIS TEST IS BEING USED UNDER THE FDA EUA PROCEDURE. THIS ASSAY HAS BEEN VALIDATED AT [facility] FOR USE WITH NASAL AND NASOPHARYNGEAL SWAB [...] PUBLIC HEALTH AUTHORITIES. Performed By: #### 2 53648 #### [address] [address] CULT STREP REFLEX ONLYon CULT STREP REFLEX ONLY CULT STREP REFLEX ONLY _REFLEX STREP SCREEN CULTURE ONLY_ 06/22/23.1006.DNP.COMPL ETE Normal [facility] Comment on above: Performed By: #### 2 43436 #### [address] [address] INFLUENZA VIRUS RAPID A/Bon 06-19-2023 INFLUENZA VIRUS [...] READ BACK BY [place] 0955 Normal [facility] Comment on above: Performed By: #### 2 00542 #### [facility],[address] [place] [address] RAPID STREPon 06-19-2023 S. pyogenes Ag IA Ql (Unsp spec) Rapid Strep NEG:GRP A STREP INTERNAL QC PASS EXTERNAL QC DONE? YES [facility] Comment on above: Performed By: #### 2 00591 #### [facility],[address] [place] [address] RSVon 06-19-2023 RSV RSV NEGATIVE TEST INTENDED FOR PATIENTS UNDER 5 YEARS INTERNAL NEG QC PASS INTERNAL POS QC PASS EXTERNAL QC DONE? YES [facility] Comment on above: Performed By: #### 2 48653 #### [facility],[address] [place] [address] Gram stain for investigation of transfusion reactionOrdered By: Imani Sullivan on 04-21-2023 Microscopic observation Gram stain Nom (Unsp spec) [facility] Thin prep Papanicolaou smear with manual screeningOrdered By: Imani Sullivan on 04-21-2023 Genital Culture GNR lactose jury consultant [facility] Genital Culture Presumptive C albicans [facility] Cervical or vagninal specime n microscopic examination by cytology stain (reported asOrdered By: Faustina Elias on 12-23-2022 Cytology report Cyto stain Doc (Cvx/Vag) Comment . [facility] Comment on above: The Pap smear is a s creening test designed to aid in thedetection of premalignant and malignant conditions of theuterine cervix. It is not a diagnostic procedure andshould not be used as the sole means of detecting cervicalcancer. Both false-positive and false-negative reports dooccur. Laboratory - CytologyOrdered By: Faustina Elias on 12-23-2022 Spanish Interpreter Cyto stain Nom (Cvx/Vag) [ID] Comment . [facility] Comment on above: Alvaro Ricci, Cytotec hnologist (ASCP) Laboratory - Miscellaneous t estsOrdered By: Faustina Elias on 12-23-2022 Service comment (Unsp spec) [Interp] Comment . [facility] Comment on above: This liquid based Th inPrep(R) pap test was screened withthe use of an image guided system. Service comment (Unsp spec) [Interp] . . [facility] No Panel InformationOrdered By: Faustina Elias on 12-23-2022 Human Papillomavirus Screen Comment . [facility] Comment on above: The HPV DNA reflex c rima were not met with this specimenresult therefore, no HPV testing was performed.Performed at: [address] [id number] Director: Lise Chaparro MD, Phone: [phone] Pathology report final diagnosis Narrative Comment . [facility] Comment on above: NEGATIVE FOR INTRAEP ITHELIAL LESION OR MALIGNANCY. Cervical or vagninal specime n microscopic examination by cytology stain (reported asOrdered By: Faustina Elias on 11-11-2022 Cytology report Cyto stain Doc (Cvx/Vag) Comment . [facility] Comment on above: The Pap smear is a s creening test designed to aid in thedetection of premalignant and malignant conditions of theuterine cervix. It is not a diagnostic procedure andshould not be used as the sole means of detecting cervicalcancer. Both false-positive and false-negative reports dooccur. Laboratory - CytologyOrdered By: Faustina Elias on 11-11-2022 Spanish Interpreter Cyto stain Nom (Cvx/Vag) [ID] Comment . [facility] Comment on above: Jenny garcia, Dealer Analyst (ASCP) Recommended follow-up Cyto stain Nom (Cvx/Vag) Comment . [facility] Comment on above: Suggest follow up as clinically appropriate. Laboratory - Miscellaneous t estsOrdered By: Faustina Elias on 11-11-2022 Service comment (Unsp spec) [Interp] Comment . [facility] Comment on above: This liquid based Th inPrep(R) pap test was screened withthe use of an image guided system. Service comment (Unsp spec) [Interp] . . [facility] No Panel InformationOrdered By: Faustina Elias on 11-11-2022 Human Papillomavirus Screen Comment . [facility] Comment on above: The HPV DNA reflex c rima were not met with this specimenresult therefore, no HPV testing was performed.Performed at: [address] [id number] Director: Lise Chaparro MD, Phone: [phone] Pap Smear Specimen Adequacy Comment . [facility] Comment on above: Specimen processed a nd examined but unsatisfactory for evaluation ofepithelial abnormality because of insufficient cellularity. Pathology report final diagnosis Narrative Comment . [facility] Comment on above: UNSATISFACTORY FOR E VALUATION. Absolute lymphocyte countOrd ered By: Dr. Carr on 09-23-2022 Lymphocytes Auto (Unsp spec) [#/Vol] 1.23 10*3/uL 0.83-4.51 [facility] Basophil percentageOrdered B y: Dr. Carr on 09-23-2022 Basophils/100 WBC (Bld) 0.2 % 0-1 [facility] Eosinophils/100 WBC (Bld) 1.1 % 0-5 [facility] Neutrophils (Bld) [#/Vol] 9.8 10*3/uL 2.0-7.7 [facility] Neutrophils/100 WBC (Bld) 79.2 % 47-70 [facility] WBC (Bld) [#/Vol] 12.3 10*3/uL 4.4-11.0 [facility] Blood erythrocytes count (nu mber/volume)Ordered By: Dr. Carr on 09-23-2022 RBC (Bld) [#/Vol] 4.01 10*6/uL 4.2-5.4 [facility] Blood hemoglobin measurement (mass/volume)Ordered By: Dr. Carr on 09-23-2022 Hemoglobin (Bld) [Mass/Vol] 12.9 g/dL 12.0-15.0 [facility] Blood lymphocytes/100 leukoc ytesOrdered By: Dr. Carr on 09-23-2022 Lymphocytes/100 WBC (Bld) 10.0 % 19-41 [facility] Blood monocytes/100 leukocyt esOrdered By: Dr. Carr on 09-23-2022 Monocytes/100 WBC (Bld) 8.9 % 0-10 [facility] Blood platelet mean volumeOr dered By: Dr. Carr on 09-23-2022 Platelet mean volume (Bld) [Entitic vol] 12.5 fL 6.2-12.0 [facility] Determination of erythrocyte mean corpuscular volume (MCV)Ordered By: Dr. Carr on 09-23-2022 MCV (RBC) [Entitic vol] 94.5 fL 81-99 [facility] Hematocrit Auto (Bld) [Volum e fraction]Ordered By: Dr. Carr on 09-23-2022 Hematocrit (Bld) [Volume fraction] 37.9 % 37-47 [facility] Laboratory - Hematology and Cell countsOrdered By: Dr. Carr on 09-23-2022 Erythrocyte distribution width (RBC) [Entitic vol] 43.7 fL 35.1-43.9 [facility] Erythrocyte distribution width (RBC) [Ratio] 12.5 % 11.6-14.6 [facility] Immature granulocytes/100 WBC (Bld) 0.600 % 0.0-0.9 [facility] Comment on above: IG% - Immature Granu locytes (promyelocytes, myelocytes and metamyelocytes) > 1% indicates that a LEFT SHIFT is Present. MCH (RBC) [Entitic mass] 32.2 pg 27.0-32.0 [facility] Nucleated RBC/100 WBC (Bld) [Ratio] 0 % 0-5 [facility] MCHC Auto (RBC) [Mass/Vol]Or dered By: Dr. Carr on 09-23-2022 MCHC (RBC) [Mass/Vol] 34.0 g/dL 32-36 [facility] No Panel InformationOrdered By: Dr. Jones on 09-23-2022 Vaginal Amniotic Fluid Detection Positive Negative [facility] Comment on above: Amniotic fluid prese nt indicates rupture of Membranes. RESULTS CALLED TO EUGENIA 09/23/22 0819 Harley Lopez.REPORT READ BACK BY SAME . Platelets bldOrdered By: Dr. Carr on 09-23-2022 Platelets (Bld) [#/Vol] 175 10*3/uL 150-450 [facility] Serum Treponema species anti body detectionOrdered By: Dr. Carr on 09-23-2022 Treponema sp Ab Ql (S) Non-Reactive [facility] Absolute lymphocyte countOrd ered By: Imani Sullivan on 09-21-2022 Lymphocytes Auto (Unsp spec) [#/Vol] 1.40 10*3/uL 0.83-4.51 [facility] Basophil percentageOrdered B y: Imani Sullivan on 09-21-2022 Basophils/100 WBC (Bld) 0.2 % 0-1 [facility] Bilirubin [Mass/Vol] 0.20 mg/dL 0.20-1.00 [facility] Comment on above: For patients on eltr ombopag therapy, use of Dimension [place] TBIL is not recommended. Chloride [Moles/Vol] 106 mmol/L 98-107 [facility] Eosinophils/100 WBC (Bld) 0.7 % 0-5 [facility] Glucose [Mass/Vol] 93 mg/dL 74-106 [facility] Neutrophils (Bld) [#/Vol] 9.5 10*3/uL 2.0-7.7 [facility] Neutrophils/100 WBC (Bld) 77.4 % 47-70 [facility] Potassium [Moles/Vol] 4.1 mmol/L 3.5-5.1 [facility] Protein [Mass/Vol] 6.4 g/dL 6.4-8.2 [facility] Sodium [Moles/Vol] 134 mmol/L 136-145 [facility] WBC (Bld) [#/Vol] 12.3 10*3/uL 4.4-11.0 [facility] Blood erythrocytes count (nu mber/volume)Ordered By: Imani Sullivan on 09-21-2022 RBC (Bld) [#/Vol] 3.79 10*6/uL 4.2-5.4 [facility] Blood hemoglobin measurement (mass/volume)Ordered By: Imani Sullivan on 09-21-2022 Hemoglobin (Bld) [Mass/Vol] 12.4 g/dL 12.0-15.0 [facility] Blood lymphocytes/100 leukoc ytesOrdered By: Imani Sullivan on 09-21-2022 Lymphocytes/100 WBC (Bld) 11.4 % 19-41 [facility] Blood monocytes/100 leukocyt esOrdered By: Imani Sullivan on 09-21-2022 Monocytes/100 WBC (Bld) 9.8 % 0-10 [facility] Blood platelet mean volumeOr dered By: Imani Sullivan on 09-21-2022 Platelet mean volume (Bld) [Entitic vol] 12.6 fL 6.2-12.0 [facility] Determination of erythrocyte mean corpuscular volume (MCV)Ordered By: Imani Sullivan on 09-21-2022 MCV (RBC) [Entitic vol] 96.3 fL 81-99 [facility] Hematocrit Auto (Bld) [Volum e fraction]Ordered By: Imani Sullivan on 09-21-2022 Hematocrit (Bld) [Volume fraction] 36.5 % 37-47 [facility] Laboratory - Chemistry and C hemistry - challengeOrdered By: Imani Sullivan on 09-21-2022 ALP [Catalytic activity/Vol] 127 U/L 45-117 [facility] ALT [Catalytic activity/Vol] 29 U/L 13-56 [facility] CO2 [Moles/Vol] 23.0 mmol/L 21.0-32.0 [facility] Globulin (S) [Mass/Vol] 3.6 g/dL 2.2-4.2 [facility] Urea nitrogen/Creatinine [Mass ratio] 20.7 mg/mg 10-20 [facility] Laboratory - Chemistry and C hemistry - challengeon 09-21-2022 Glucose Ql (U) Negative [facility] Laboratory - Hematology and Cell countsOrdered By: Imani Sullivan on 09-21-2022 Erythrocyte distribution width (RBC) [Entitic vol] 43.7 fL 35.1-43.9 [facility] Erythrocyte distribution width (RBC) [Ratio] 12.5 % 11.6-14.6 [facility] Immature granulocytes/100 WBC (Bld) 0.500 % 0.0-0.9 [facility] Comment on above: IG% - Immature Granu locytes (promyelocytes, myelocytes and metamyelocytes) > 1% indicates that a LEFT SHIFT is Present. MCH (RBC) [Entitic mass] 32.7 pg 27.0-32.0 [facility] Nucleated RBC/100 WBC (Bld) [Ratio] 0 % 0-5 [facility] Laboratory - Urinalysison Protein Ql (U) 1+ [facility] MCHC Auto (RBC) [Mass/Vol]Or dered By: Imani Sullivan on 09-21-2022 MCHC (RBC) [Mass/Vol] 34.0 g/dL 32-36 [facility] No Panel InformationOrdered By: Imani Sullivan on 09-21-2022 Estimated GFR (MDRD) Amer 150 mL/min >60 [facility] Comment on above: GFR Calc Estimated GFR (MDRD) Non-Af Amer 124 mL/min >60 [facility] Comment on above: Non- GFR Calc Platelets bldOrdered By: Rosemary Sullivan on 09-21-2022 Platelets (Bld) [#/Vol] 199 10*3/uL 150-450 [facility] Serum or plasma albumin ximena urement (mass/volume)Ordered By: Imani Sullivan on 09-21-2022 Albumin [Mass/Vol] 2.8 g/dL 3.2-5.0 [facility] Serum or plasma albumin/glob ulin mass ratioOrdered By: Imani Sullivan on 09-21-2022 Albumin/Globulin [Mass ratio] 0.8 {ratio} 0.9-2.4 [facility] [facility] Serum or plasma calcium ximena urement (mass/volume)Ordered By: Imani Sullivan on 09-21-2022 Calcium [Mass/Vol] 9.1 mg/dL 8.5-10.1 [facility] Serum or plasma creatinine m easurement (mass/volume)Ordered By: Imani Sullivan on 09-21-2022 Creatinine [Mass/Vol] 0.63 mg/dL 0.55-1.02 [facility] Comment on above: The validity of the calculated GFR & GFRAA in patients over 70 years has not been determined. Clinical correlation is essential. Serum or plasma urea nitroge n measurement (mass/volume)Ordered By: Imani Sullivan on 09-21-2022 Urea nitrogen [Mass/Vol] 13 mg/dL 7-18 [facility] Thin prep Papanicolaou smear with manual screeningOrdered By: Imani Sullivan on 09-21-2022 Thin prep Papanicolaou smear with manual screening 22 U/L 15-37 [facility] Thin prep Papanicolaou smear with manual screening 5 5-15 [facility] Urine creatinine measurement (mass/volume)Ordered By: Imanicrystal Sullivan on 09-21-2022 Creatinine (U) [Mass/Vol] 273.00 mg/dL NO RANGE EST. [facility] Urine protein measurement (m ass/volume)Ordered By: Imani Sullivan on 09-21-2022 Protein (U) [Mass/Vol] 50.6 mg/dL 0.0-11.8 [facility] Urine protein/creatinine mas s ratioOrdered By: Imani Sullivan on 09-21-2022 Protein/Creatinine (U) [Mass ratio] 185 mg/g CRE 0-200 [facility] Culture, urineOrdered By: Baljit Begum on 09-17-2022 Bacteria identified Cx Nom (U) Positive [facility] Basophil percentageOrdered B y: Sharri Begum on 09-15-2022 Basophil percentage 10-25 SEEN /hpf 0-5 [facility] WBC (Bld) [#/Vol] 10.7 10*3/uL 4.4-11.0 [facility] Bilirubin Test strip Ql (U)O rdered By: Sharri Begum on 09-15-2022 Bilirubin Ql (U) Negative Negative [facility] Blood erythrocytes count (nu mber/volume)Ordered By: Sharri Begum on 09-15-2022 RBC (Bld) [#/Vol] 3.83 10*6/uL 4.2-5.4 [facility] Blood hemoglobin measurement (mass/volume)Ordered By: Sharri Begum on 09-15-2022 Hemoglobin (Bld) [Mass/Vol] 12.4 g/dL 12.0-15.0 [facility] Blood platelet mean volumeOr dered By: Sharri Begum on 09-15-2022 Platelet mean volume (Bld) [Entitic vol] 12.4 fL 6.2-12.0 [facility] Culture, urineOrdered By: Blajit Begum on 09-15-2022 Bacteria identified Cx Nom (U) Positive [facility] Determination of erythrocyte mean corpuscular volume (MCV)Ordered By: Sharri Begum on 09-15-2022 MCV (RBC) [Entitic vol] 95.6 fL 81-99 [facility] Hematocrit Auto (Bld) [Volum e fraction]Ordered By: Sharri Begum on 09-15-2022 Hematocrit (Bld) [Volume fraction] 36.6 % 37-47 [facility] Ketones Test strip Ql (U)Ord ered By: Sharri Begum on 09-15-2022 Ketones Ql (U) Negative Negative [facility] Laboratory - Chemistry and C hemistry - challengeOrdered By: Sharri Begum on 09-15-2022 ALT [Catalytic activity/Vol] 22 U/L 13-56 [facility] Laboratory - Hematology and Cell countsOrdered By: Sharri Begum on 09-15-2022 Erythrocyte distribution width (RBC) [Entitic vol] 42.9 fL 35.1-43.9 [facility] Erythrocyte distribution width (RBC) [Ratio] 12.4 % 11.6-14.6 [facility] MCH (RBC) [Entitic mass] 32.4 pg 27.0-32.0 [facility] MCHC Auto (RBC) [Mass/Vol]Or dered By: Sharri Begum on 09-15-2022 MCHC (RBC) [Mass/Vol] 33.9 g/dL 32-36 [facility] Mucus LM Ql (Urine sed)Order ed By: Sharri Begum on 09-15-2022 Mucus Ql (Urine sed) 0 SEEN /hpf [facility] Nitrite Test strip Ql (U)Ord ered By: Sharri Begum on 09-15-2022 Nitrite Ql (U) Negative Negative [facility] No Panel InformationOrdered By: Sharri Begum on 09-15-2022 Miscellaneous Test See comment [facility] Comment on above: TEST RESULT LIMITSBi le Acids, Fractionated LCMS Ursodeoxycholic Acids <0.10 umol/L Reference Range: All Ages: <1.9 Cholic Acids 0.30 umol/L Reference Range: All Ages: <2.2 Chenodeoxycholic Acids 0.60 umol/L Reference Range: All Ages: <5.8 Deoxycholic Acids 1.1 umol/L Reference Range: All Ages: <3.3 Total Bile Acids 2.0 umol/LThis test was developed and its performance characteristicsdetermined by [employer]. It has not been cleared or approvedby the Food and Drug Administration.Reference Range:All Ages: <9.2 TESTING PERFORMED AT [facility]. ORIGINAL REPORT ON FILE IN LAB CONTAINS ADDITIONAL TEST SITE INFORMATION. Estimated Creatinine Clearance Calc 108.36 ml/min [facility] Estimated GFR (MDRD) Amer 164 mL/min >60 [facility] Comment on above: GFR Calc Estimated GFR (MDRD) Non-Af Amer 136 mL/min >60 [facility] Comment on above: Non- GFR Calc Platelets bldOrdered By: Luis Begum on 09-15-2022 Platelets (Bld) [#/Vol] 194 10*3/uL 150-450 [facility] Protein Test strip Ql (U)Ord ered By: Sharri Begum on 09-15-2022 Protein Ql (U) 15 mg/dl Negative [facility] Serum or plasma creatinine m easurement (mass/volume)Ordered By: Sharri Begum on 09-15-2022 Creatinine [Mass/Vol] 0.58 mg/dL 0.55-1.02 [facility] Comment on above: The validity of the calculated GFR & GFRAA in patients over 70 years has not been determined. Clinical correlation is essential. Serum or plasma uric acid me asurement (mass/volume)Ordered By: Sharri Begum on 09-15-2022 Urate [Mass/Vol] 6.3 mg/dL 2.6-6.0 [facility] Comment on above: The drugs N-Acetylcy steine and Metamizole may falsely depress this assay. Squamous epithelial cells de tection in urine sediment by light microscopyOrdered By: Sharri Begum on 09-15-2022 Epithelial cells.squamous LM Ql (Urine sed) 10-25 SEEN /hpf 5-10 [facility] Thin prep Papanicolaou smear with manual screeningOrdered By: Sharri Begmu on 09-15-2022 Thin prep Papanicolaou smear with manual screening 15 U/L 15-37 [facility] Urine blood detectionOrdered By: Sharri Begum on 09-15-2022 RBC Ql (U) Negative Negative [facility] RBC Ql (U) 0 SEEN /hpf 0-5 [facility] Urine clarityOrdered By: Luis Begum on 09-15-2022 Clarity (U) Sl. Cloudy Clear [facility] Urine color determinationOrd ered By: Sharri Begum on 09-15-2022 Color (U) Yellow Yellow [facility] Urine creatinine measurement (mass/volume)Ordered By: Sharri Begum on 09-15-2022 Creatinine (U) [Mass/Vol] 70.30 mg/dL NO RANGE EST. [facility] Urine glucose detectionOrder ed By: Sharri Begum on 09-15-2022 Glucose Ql (U) Normal mg/dl Normal [facility] Urine leukocyte esterase det ection by dipstickOrdered By: Sharri Begum on 09-15-2022 Leukocyte esterase Test strip Ql (U) 500 /ul Negative [facility] Urine pHOrdered By: Sharri enriquez on 09-15-2022 pH (U) 6.0 [pH] 5.0 - 8.0 [facility] Urine protein measurement (m ass/volume)Ordered By: Sharri Begum on 09-15-2022 Protein (U) [Mass/Vol] 17.2 mg/dL 0.0-11.8 [facility] Urine protein/creatinine mas s ratioOrdered By: Sharri Begum on 09-15-2022 Protein/Creatinine (U) [Mass ratio] 245 mg/g CRE 0-200 [facility] Urine sediment bacteria coun t by microscopy (number/high power field)Ordered By: Sharri Begum on 09-15-2022 Bacteria LM.HPF (Urine sed) [#/Area] 1 /[HPF] None Seen [facility] Urine specific gravity measu rementOrdered By: Sharri Begum on 09-15-2022 Specific gravity (U) [Rel density] 1.015 1.002-1.030 [facility] Urobilinogen Auto test strip Ql (U)Ordered By: Sharri Begum on 09-15-2022 Urobilinogen Ql (U) Normal mg/dl Normal [facility] Basophil percentageOrdered B y: Dr. Carr on 09-14-2022 WBC (Bld) [#/Vol] 9.7 10*3/uL 4.4-11.0 [facility] Blood erythrocytes count (nu mber/volume)Ordered By: Dr. Carr on 09-14-2022 RBC (Bld) [#/Vol] 3.86 10*6/uL 4.2-5.4 [facility] Blood hemoglobin measurement (mass/volume)Ordered By: Dr. Carr on 09-14-2022 Hemoglobin (Bld) [Mass/Vol] 12.5 g/dL 12.0-15.0 [facility] Blood platelet mean volumeOr dered By: Dr. Carr on 09-14-2022 Platelet mean volume (Bld) [Entitic vol] 11.9 fL 6.2-12.0 [facility] Determination of erythrocyte mean corpuscular volume (MCV)Ordered By: Dr. Carr on 09-14-2022 MCV (RBC) [Entitic vol] 93.5 fL 81-99 [facility] Hematocrit Auto (Bld) [Volum e fraction]Ordered By: Dr. Carr on 09-14-2022 Hematocrit (Bld) [Volume fraction] 36.1 % 37-47 [facility] Laboratory - Chemistry and C hemistry - challengeOrdered By: Dr. Carr on 09-14-2022 ALT [Catalytic activity/Vol] 21 U/L 13-56 [facility] Laboratory - Chemistry and C hemistry - challengeon 09-14-2022 Glucose Ql (U) Negative [facility] Laboratory - Hematology and Cell countsOrdered By: Dr. Carr on 09-14-2022 Erythrocyte distribution width (RBC) [Entitic vol] 42.6 fL 35.1-43.9 [facility] Erythrocyte distribution width (RBC) [Ratio] 12.5 % 11.6-14.6 [facility] MCH (RBC) [Entitic mass] 32.4 pg 27.0-32.0 [facility] Laboratory - Urinalysison Protein Ql (U) [facility] [Mass/Vol]Or dered By: Dr. Carr on 09-14-2022 MCHC (RBC) [Mass/Vol] 34.6 g/dL 32-36 [facility] No Panel InformationOrdered By: Dr. Carr on 09-14-2022 Estimated Creatinine Clearance Calc 146.16 ml/min [facility] Estimated GFR (MDRD) Amer 233 mL/min >60 [facility] Comment on above: GFR Calc Estimated GFR (MDRD) Non-Af Amer 193 mL/min >60 [facility] Comment on above: Non- GFR Calc Platelets bldOrdered By: Dr. Carr on 09-14-2022 Platelets (Bld) [#/Vol] 190 10*3/uL 150-450 [facility] Serum or plasma creatinine m easurement (mass/volume)Ordered By: Dr. Carr on 09-14-2022 Creatinine [Mass/Vol] 0.43 mg/dL 0.55-1.02 [facility] Comment on above: The validity of the calculated GFR & GFRAA in patients over 70 years has not been determined. Clinical correlation is essential. Serum or plasma uric acid me asurement (mass/volume)Ordered By: Dr. Carr on 09-14-2022 Urate [Mass/Vol] 6.0 mg/dL 2.6-6.0 [facility] Comment on above: The drugs N-Acetylcy steine and Metamizole may falsely depress this assay. Thin prep Papanicolaou smear with manual screeningOrdered By: Dr. Carr on 09-14-2022 Thin prep Papanicolaou smear with manual screening 12 U/L 15-37 [facility] Urine creatinine measurement (mass/volume)Ordered By: Dr. Carr on 09-14-2022 Creatinine (U) [Mass/Vol] 105.00 mg/dL NO RANGE EST. [facility] Urine protein measurement (m ass/volume)Ordered By: Dr. Carr on 09-14-2022 Protein (U) [Mass/Vol] 20.9 mg/dL 0.0-11.8 [facility] Urine protein/creatinine mas s ratioOrdered By: Dr. Carr on 09-14-2022 Protein/Creatinine (U) [Mass ratio] 199 mg/g CRE 0-200 [facility] No Panel InformationOrdered By: Dr. Carr on 09-13-2022 Group B Streptococcus Culture Group B Beta Streptococcus is not isolated. [facility] No Panel InformationOrdered By: Karyna Carr on 09-10-2022 Group B Streptococcus Culture Group B Beta Streptococcus is not isolated. [facility] Laboratory - Chemistry and C hemistry - challengeon 08-25-2022 Glucose Ql (U) Negative [facility] Laboratory - Urinalysison Protein Ql (U) Negative [facility] Laboratory - Chemistry and C hemistry - challengeon 08-12-2022 Glucose Ql (U) Negative [facility] Laboratory - Urinalysison Protein Ql (U) Negative [facility] Laboratory - Chemistry and C hemistry - challengeon 07-30-2022 Glucose Ql (U) Negative [facility] Laboratory - Urinalysison Protein Ql (U) Negative [facility] Laboratory - Chemistry and C hemistry - challengeon 07-16-2022 Glucose Ql (U) Negative [facility] Laboratory - Urinalysison Protein Ql (U) Negative [facility] Laboratory - Chemistry and C hemistry - challengeon 07-06-2022 Glucose Ql (U) Negative [facility] Laboratory - Urinalysison Protein Ql (U) Negative [facility] Culture, urineOrdered By: Dr Charity Carr on 07-05-2022 Bacteria identified Cx Nom (U) Gardnerella vaginalis [facility] Bilirubin Test strip Ql (U)O rdered By: Dr. Carr on 07-01-2022 Bilirubin Ql (U) Negative Negative [facility] Ketones Test strip Ql (U)Ord ered By: Dr. Carr on 07-01-2022 Ketones Ql (U) Negative Negative [facility] Nitrite Test strip Ql (U)Ord ered By: Dr. Carr on 07-01-2022 Nitrite Ql (U) Negative Negative [facility] Protein Test strip Ql (U)Ord ered By: Dr. Carr on 07-01-2022 Protein Ql (U) Negative Negative [facility] Urine blood detectionOrdered By: Dr. Carr on 07-01-2022 RBC Ql (U) Negative Negative [facility] Urine clarityOrdered By: Dr. Carr on 07-01-2022 Clarity (U) Clear Clear [facility] Urine color determinationOrd ered By: Dr. Carr on 07-01-2022 Color (U) Yellow Yellow [facility] Urine glucose detectionOrder ed By: Dr. Carr on 07-01-2022 Glucose Ql (U) Normal mg/dl Normal [facility] Urine leukocyte esterase det ection by dipstickOrdered By: Dr. Carr on 07-01-2022 Leukocyte esterase Test strip Ql (U) 500 /ul Negative [facility] Urine pHOrdered By: Dr. Stan perez on 07-01-2022 pH (U) 7.0 [pH] 5.0 - 8.0 [facility] Urine specific gravity measu rementOrdered By: Dr. Carr on 07-01-2022 Specific gravity (U) [Rel density] 1.005 1.002-1.030 [facility] Urobilinogen Auto test strip Ql (U)Ordered By: Dr. Carr on 07-01-2022 Urobilinogen Ql (U) Normal mg/dl Normal [facility] Absolute lymphocyte countOrd ered By: Dr. Jones on 06-22-2022 Lymphocytes Auto (Unsp spec) [#/Vol] 1.11 10*3/uL 0.83-4.51 [facility] Basophil percentageOrdered B y: Dr. Jones on 06-22-2022 Basophils/100 WBC (Bld) 0.2 % 0-1 [facility] Eosinophils/100 WBC (Bld) 1.2 % 0-5 [facility] Neutrophils (Bld) [#/Vol] 7.4 10*3/uL 2.0-7.7 [facility] Neutrophils/100 WBC (Bld) 78.7 % 47-70 [facility] WBC (Bld) [#/Vol] 9.4 10*3/uL 4.4-11.0 [facility] Blood erythrocytes count (nu mber/volume)Ordered By: Dr. Jones on 06-22-2022 RBC (Bld) [#/Vol] 3.97 10*6/uL 4.2-5.4 [facility] Blood hemoglobin measurement (mass/volume)Ordered By: Dr. Jones on 06-22-2022 Hemoglobin (Bld) [Mass/Vol] 12.5 g/dL 12.0-15.0 [facility] Blood lymphocytes/100 leukoc ytesOrdered By: Dr. Jones on 06-22-2022 Lymphocytes/100 WBC (Bld) 11.8 % 19-41 [facility] Blood monocytes/100 leukocyt esOrdered By: Dr. Jones on 06-22-2022 Monocytes/100 WBC (Bld) 7.5 % 0-10 [facility] Blood platelet mean volumeOr dered By: Dr. Jones on 06-22-2022 Platelet mean volume (Bld) [Entitic vol] 10.5 fL 6.2-12.0 [facility] Determination of erythrocyte mean corpuscular volume (MCV)Ordered By: Dr. Jones on 06-22-2022 MCV (RBC) [Entitic vol] 95.7 fL 81-99 [facility] Gestational diabetes screen 1-hour screen with 50g oral glucose loadOrdered By: Dr. Jones on 06-22-2022 Glucose 1 Hr post 50 g glucose PO [Mass/Vol] 115 mg/dL 70-140 [facility] HIV 1 and HIV-2 antibody ass ay with HIV-1 p24 antigen detectionOrdered By: Dr. Jones on 06-22-2022 HIV 1+2 Ab+HIV1 p24 Ag IA Ql Non-Reactive Nonreactive [facility] Hematocrit Auto (Bld) [Volum e fraction]Ordered By: Dr. Jones on 06-22-2022 Hematocrit (Bld) [Volume fraction] 38.0 % 37-47 [facility] Laboratory - Chemistry and C hemistry - challengeon 06-22-2022 Glucose Ql (U) Negative [facility] Laboratory - Hematology and Cell countsOrdered By: Dr. Jones on 06-22-2022 Erythrocyte distribution width (RBC) [Entitic vol] 43.9 fL 35.1-43.9 [facility] Erythrocyte distribution width (RBC) [Ratio] 12.4 % 11.6-14.6 [facility] Immature granulocytes/100 WBC (Bld) 0.600 % 0.0-0.9 [facility] Comment on above: IG% - Immature Granu locytes (promyelocytes, myelocytes and metamyelocytes) > 1% indicates that a LEFT SHIFT is Present. MCH (RBC) [Entitic mass] 31.5 pg 27.0-32.0 [facility] Nucleated RBC/100 WBC (Bld) [Ratio] 0 % 0-5 [facility] Laboratory - Urinalysison Protein Ql (U) Negative [facility] MCHC Auto (RBC) [Mass/Vol]Or dered By: Dr. Jones on 06-22-2022 MCHC (RBC) [Mass/Vol] 32.9 g/dL 32-36 [facility] Platelets bldOrdered By: Dr. Jones on 06-22-2022 Platelets (Bld) [#/Vol] 274 10*3/uL 150-450 [facility] Serum Treponema species anti body detectionOrdered By: Dr. Jones on 06-22-2022 Treponema sp Ab Ql (S) Non-Reactive [facility] Laboratory - Chemistry and C hemistry - challengeon 05-27-2022 Glucose Ql (U) Negative [facility] Laboratory - Urinalysison Protein Ql (U) Negative [facility] Laboratory - Chemistry and C hemistry - challengeon 04-28-2022 Glucose Ql (U) Negative [facility] Laboratory - Urinalysison Protein Ql (U) Negative [facility] Laboratory - Chemistry and C hemistry - challengeon 03-29-2022 Glucose Ql (U) Negative [facility] Laboratory - Urinalysison Protein Ql (U) Negative [facility] Culture, urineOrdered By: Dr Charity Jones on 03-13-2022 Bacteria identified Cx Nom (U) Positive [facility] Absolute lymphocyte countOrd ered By: Dr. Jones on 03-11-2022 Lymphocytes Auto (Unsp spec) [#/Vol] 1.32 10*3/uL 0.83-4.51 [facility] Basophil percentageOrdered B y: Dr. Jones on 03-11-2022 Basophils/100 WBC (Bld) 0.2 % 0-1 [facility] Eosinophils/100 WBC (Bld) 1.4 % 0-5 [facility] Neutrophils (Bld) [#/Vol] 7.0 10*3/uL 2.0-7.7 [facility] Neutrophils/100 WBC (Bld) 75.4 % 47-70 [facility] WBC (Bld) [#/Vol] 9.3 10*3/uL 4.4-11.0 [facility] Blood erythrocytes count (nu mber/volume)Ordered By: Dr. Jones on 03-11-2022 RBC (Bld) [#/Vol] 4.16 10*6/uL 4.2-5.4 [facility] Blood hemoglobin measurement (mass/volume)Ordered By: Dr. Jones on 03-11-2022 Hemoglobin (Bld) [Mass/Vol] 13.4 g/dL 12.0-15.0 [facility] Blood lymphocytes/100 leukoc ytesOrdered By: Dr. Jones on 03-11-2022 Lymphocytes/100 WBC (Bld) 14.2 % 19-41 [facility] Blood monocytes/100 leukocyt esOrdered By: Dr. Jones on 03-11-2022 Monocytes/100 WBC (Bld) 8.6 % 0-10 [facility] Blood platelet mean volumeOr dered By: Dr. Jones on 03-11-2022 Platelet mean volume (Bld) [Entitic vol] 10.7 fL 6.2-12.0 [facility] Cervical or vagninal specime n microscopic examination by cytology stain (reported asOrdered By: Dr. Jones on 03-11-2022 Cytology report Cyto stain Doc (Cvx/Vag) Comment . [facility] Comment on above: The Pap smear is [...] rRNA SHANITA+probe Ql (Unsp spec) Negative Negative [facility] Determination of erythrocyte mean corpuscular volume (MCV)Ordered By: Dr. Jones on 03-11-2022 MCV (RBC) [Entitic vol] 91.6 fL 81-99 [facility] HIV 1 and HIV-2 antibody ass ay with HIV-1 p24 antigen detectionOrdered By: Dr. Jones on 03-11-2022 HIV 1+2 Ab+HIV1 p24 Ag IA Ql Non-Reactive Nonreactive [facility] Hematocrit Auto (Bld) [Volum e fraction]Ordered By: Dr. Jones on 03-11-2022 Hematocrit (Bld) [Volume fraction] 38.1 % 37-47 [facility] Laboratory - CytologyOrdered By: Dr. Jones on 03-11-2022 Spanish Interpreter Cyto stain Nom (Cvx/Vag) [ID] Comment . [facility] Comment on above: Fariba Santos Cyto technologist Pathologist Cyto stain Nom (Cvx/Vag) [ID] Comment . [facility] Comment on above: Lise Chaparro MD, Pathologist Recommended follow-up Cyto stain Nom (Cvx/Vag) Comment . [facility] Comment on above: Suggest follow up as clinically appropriate. Laboratory - Drug toxicology Ordered By: Dr. Jones on 03-11-2022 Amphetamines Ql (U) Negative <1000 ng/mL [facility] Benzodiazepines Ql (U) Negative < 200 ng/mL [facility] Cannabinoids Screen Ql (U) Negative < 50 ng/mL [facility] Cocaine Ql (U) Negative < 300 ng/mL [facility] Opiates Ql (U) Negative < 300 ng/mL [facility] Laboratory - Hematology and Cell countsOrdered By: Dr. Jones on 03-11-2022 Erythrocyte distribution width (RBC) [Entitic vol] 40.9 fL 35.1-43.9 [facility] Erythrocyte distribution width (RBC) [Ratio] 12.2 % 11.6-14.6 [facility] Immature granulocytes/100 WBC (Bld) 0.200 % 0.0-0.9 [facility] Comment on above: IG% - Immature Granu locytes (promyelocytes, myelocytes and metamyelocytes) > 1% indicates that a LEFT SHIFT is Present. MCH (RBC) [Entitic mass] 32.2 pg 27.0-32.0 [facility] Nucleated RBC/100 WBC (Bld) [Ratio] 0 % 0-5 [facility] Laboratory - Microbiology an d Antimicrobial susceptibilityOrdered By: Dr. Jones on 03-11-2022 N. gonorrhoeae DNA SHANITA+probe Ql (Unsp spec) Negative Negative [facility] Comment on above: Performed at: [address] [id number] Director: Lise Chaparro MD, Phone: [phone] Laboratory - Miscellaneous t estsOrdered By: Dr. Jones on 03-11-2022 Service comment (Unsp spec) [Interp] Comment . [facility] Comment on above: This liquid based Th inPrep(R) pap test was screened withthe use of an image guided system. Service comment (Unsp spec) [Interp] . . [facility] Auto (RBC) [Mass/Vol]Or dered By: Dr. Jones on 03-11-2022 MCHC (RBC) [Mass/Vol] 35.2 g/dL 32-36 [facility] No Panel InformationOrdered By: Dr. Jones on 03-11-2022 Human Papillomavirus Screen Comment . [facility] Comment on above: See below for HPV te sting results. MDMA (Ecstasy) Screen Negative < 500 ng/mL [facility] Pathology report final diagnosis Narrative Comment . [facility] Comment on above: EPITHELIAL CELL ABNO RMALITY.ATYPICAL SQUAMOUS CELLS OF UNDETERMINED SIGNIFICANCE (ASC-US). R87.610 Urine Barbiturates Screen Negative < 200 ng/mL [facility] Urine Drug Screen Comment [facility] Comment on above: CONFIRMATORY TESTING FOR ALL [...] Urine Methadone Screen Negative < 300 ng/mL [facility] Hepatitis B Surface Antigen Non-Reactive Nonreactive [facility] Hepatitis C Antibody Non-Reactive Nonreactive [facility] Comment on above: Non Reactive: < 0.8 Equivocal: >/= 0.8 to < 1.0 Reactive: >/= 1.0The CDC recommends that a reactive/equivocal HCV antibody result be followed up by the HCV Nucleic Acid Amplificationtest (477495) Miscellaneous Test Comment MAILED SPECIMEN [facility] Rubella IgG Antibody Reactive Nonreactive [facility] Comment on above: Antibody Results Int erpretation of Immune Status Non Reactive Presumed Non-Immune Equivocal Equivocal Reactive Presumed Immune Platelets bldOrdered By: Dr. Jones on 03-11-2022 Platelets (Bld) [#/Vol] 334 10*3/uL 150-450 [facility] Serum Treponema species anti body detectionOrdered By: Dr. Jones on 03-11-2022 Treponema sp Ab Ql (S) Non-Reactive [facility] Urine phencyclidine (PCP) de tectionOrdered By: Dr. Jones on 03-11-2022 Phencyclidine Ql (U) Negative < 25 ng/mL [facility] Culture, urine Bacteria identified Cx Nom (U) Positive [facility] Work Phone: Vital Signs Date Time Vital Sign Value Performing Clinician Faci lity 01-16-2025 13:45-0400 Body height 154.94 cm No Primary Care Physician [facility] 01-16-2025 13:45-0400 Body mass index (BMI) [Ratio] 39.6 kg/m2 No Primary Care Physician [facility] 01-16-2025 13:45-0400 Body weight 95.25 kg No Primary Care Physician [facility] 01-16-2025 13:45-0400 Diastolic blood pressure 90 mm[Hg] No Primary Care Physician [facility] 01-16-2025 13:45-0400 Systolic blood pressure 125 mm[Hg] No Primary Care Physician [facility] 01-07-2025 14:27-0400 Body height 154.94 cm No Primary Care Physician [facility] 01-07-2025 14:27-0400 Body mass index (BMI) [Ratio] 38.3 kg/m2 No Primary Care Physician [facility] 01-07-2025 14:27-0400 Body weight 92.13 kg No Primary Care Physician [facility] 01-07-2025 14:27-0400 Diastolic blood pressure 81 mm[Hg] No Primary Care Physician [facility] 01-07-2025 14:27-0400 Systolic blood pressure 112 mm[Hg] No Primary Care Physician [facility] 12-25-2024 13:55-0400 Body height 154.94 cm No Primary Care Physician [facility] 12-25-2024 13:55-0400 Body mass index (BMI) [Ratio] 37.4 kg/m2 No Primary Care Physician [facility] 12-25-2024 13:55-0400 Body weight 89.81 kg No Primary Care Physician [facility] 12-25-2024 13:55-0400 Diastolic blood pressure 83 mm[Hg] No Primary Care Physician [facility] 12-25-2024 13:55-0400 Systolic blood pressure 120 mm[Hg] No Primary Care Physician [facility] 12-11-2024 13:38-0400 Body height 154.94 cm No Primary Care Physician [facility] 12-11-2024 13:38-0400 Body mass index (BMI) [Ratio] 36.3 kg/m2 No Primary Care Physician [facility] 12-11-2024 13:38-0400 Body weight 87.2 kg No Primary Care Physician [facility] 12-11-2024 13:38-0400 Diastolic blood pressure 86 mm[Hg] No Primary Care Physician [facility] 12-11-2024 13:38-0400 Systolic blood pressure 118 mm[Hg] No Primary Care Physician [facility] 12-05-2024 22:39-0400 Heart rate 81 /min No Primary Care Physician [facility] 12-05-2024 22:39-0400 SaO2% (BldA) [Mass fraction] 98 % No Primary Care Physician [facility] 12-05-2024 22:00-0400 Body height 154.94 cm No Primary Care Physician [facility] 12-05-2024 22:00-0400 Body mass index (BMI) [Ratio] 36.1 kg/m2 No Primary Care Physician [facility] 12-05-2024 22:00-0400 Body weight 86.8 kg No Primary Care Physician [facility] 11-27-2024 13:20-0400 Body height 154.94 cm No Primary Care Physician [facility] 11-27-2024 13:20-0400 Body mass index (BMI) [Ratio] 36.2 kg/m2 No Primary Care Physician [facility] 11-27-2024 13:20-0400 Body weight 87.08 kg No Primary Care Physician [facility] 11-27-2024 13:20-0400 Diastolic blood pressure 72 mm[Hg] No Primary Care Physician [facility] 11-27-2024 13:20-0400 Systolic blood pressure 109 mm[Hg] No Primary Care Physician [facility] 11-13-2024 13:07-0400 Body height 154.94 cm No Primary Care Physician [facility] 11-13-2024 13:07-0400 Body mass index (BMI) [Ratio] 34.9 kg/m2 No Primary Care Physician [facility] 11-13-2024 13:07-0400 Body weight 84.02 kg No Primary Care Physician [facility] 11-13-2024 13:07-0400 Diastolic blood pressure 78 mm[Hg] No Primary Care Physician [facility] 11-13-2024 13:07-0400 Systolic blood pressure 112 mm[Hg] No Primary Care Physician [facility] 10-30-2024 13:25-0400 Body height 154.94 cm No Primary Care Physician [facility] 10-30-2024 13:25-0400 Body mass index (BMI) [Ratio] 34.6 kg/m2 No Primary Care Physician [facility] 10-30-2024 13:25-0400 Body weight 83.06 kg No Primary Care Physician [facility] 10-30-2024 13:25-0400 Diastolic blood pressure 78 mm[Hg] No Primary Care Physician [facility] 10-30-2024 13:25-0400 Systolic blood pressure 113 mm[Hg] No Primary Care Physician [facility] 10-18-2024 11:39-0400 Body height 154.94 cm No Primary Care Physician [facility] 10-18-2024 11:39-0400 Body mass index (BMI) [Ratio] 34.1 kg/m2 No Primary Care Physician [facility] 10-18-2024 11:39-0400 Body weight 81.87 kg No Primary Care Physician [facility] 10-18-2024 11:39-0400 Diastolic blood pressure 81 mm[Hg] No Primary Care Physician [facility] 10-18-2024 11:39-0400 Systolic blood pressure 118 mm[Hg] No Primary Care Physician [facility] 10-16-2024 16:51-0400 Body temperature 97.4 [degF] No Primary Care Physician [facility] 10-16-2024 16:51-0400 Diastolic blood pressure 78 mm[Hg] No Primary Care Physician [facility] 10-16-2024 16:51-0400 Heart rate 104 /min No Primary Care Physician [facility] 10-16-2024 16:51-0400 Respiratory rate 16 /min No Primary Care Physician [facility] 10-16-2024 16:51-0400 SaO2% (BldA) [Mass fraction] 100 % No Primary Care Physician [facility] 10-16-2024 16:51-0400 Systolic blood pressure 113 mm[Hg] No Primary Care Physician [facility] 10-16-2024 14:40-0400 Body mass index (BMI) [Ratio] 33.9 kg/m2 No Primary Care Physician [facility] 10-16-2024 14:40-0400 Body weight 81.46 kg No Primary Care Physician [facility] 10-02-2024 08:33-0400 Body mass index (BMI) [Ratio] 34.2 kg/m2 No Primary Care Physician [facility] 10-02-2024 08:33-0400 Body weight 79.43 kg No Primary Care Physician [facility] 10-02-2024 08:33-0400 Diastolic blood pressure 72 mm[Hg] No Primary Care Physician [facility] 10-02-2024 08:33-0400 Systolic blood pressure 110 mm[Hg] No Primary Care Physician [facility] 09-04-2024 15:35-0400 Body mass index (BMI) [Ratio] 33.5 kg/m2 No Primary Care Physician [facility] 09-04-2024 15:35-0400 Body weight 77.79 kg No Primary Care Physician [facility] 09-04-2024 15:35-0400 Diastolic blood pressure 79 mm[Hg] No Primary Care Physician [facility] 09-04-2024 15:35-0400 Systolic blood pressure 113 mm[Hg] No Primary Care Physician [facility] 08-07-2024 14:08-0500 Body mass index (BMI) [Ratio] 32.8 kg/m2 No Primary Care Physician [facility] 08-07-2024 14:08-0500 Body weight 76.37 kg No Primary Care Physician [facility] 08-07-2024 14:08-0500 Diastolic blood pressure 82 mm[Hg] No Primary Care Physician [facility] 08-07-2024 14:08-0500 Systolic blood pressure 123 mm[Hg] No Primary Care Physician [facility] 07-06-2024 13:08-0500 Body mass index (BMI) [Ratio] 33.4 kg/m2 No Primary Care Physician [facility] 07-06-2024 13:08-0500 Body weight 77.56 kg No Primary Care Physician [facility] 07-06-2024 13:08-0500 Diastolic blood pressure 78 mm[Hg] No Primary Care Physician [facility] 07-06-2024 13:08-0500 Systolic blood pressure 115 mm[Hg] No Primary Care Physician [facility] 04-21-2023 10:13-0500 Body height 152.4 cm No Primary Care Physician [facility] 04-21-2023 10:06-0500 Body mass index (BMI) [Ratio] 31.2 kg/m2 No Primary Care Physician [facility] 04-21-2023 10:06-0500 Body weight 72.63 kg No Primary Care Physician [facility] 04-21-2023 10:06-0500 Diastolic blood pressure 72 mm[Hg] No Primary Care Physician [facility] 04-21-2023 10:06-0500 Systolic blood pressure 118 mm[Hg] No Primary Care Physician [facility] 03-01-2023 11:11-0400 Body mass index (BMI) [Ratio] 30.9 kg/m2 No Primary Care Physician [facility] 03-01-2023 11:11-0400 Body temperature 98.7 [degF] No Primary Care Physician [facility] 03-01-2023 11:11-0400 Body weight 71.89 kg No Primary Care Physician [facility] 03-01-2023 11:11-0400 Diastolic blood pressure 75 mm[Hg] No Primary Care Physician [facility] 03-01-2023 11:11-0400 Heart rate 98 /min No Primary Care Physician [facility] 03-01-2023 11:11-0400 SaO2% (BldA) [Mass fraction] 100 % No Primary Care Physician [facility] 03-01-2023 11:11-0400 Systolic blood pressure 112 mm[Hg] No Primary Care Physician [facility] 01-20-2023 14:38-0400 Body mass index (BMI) [Ratio] 30.2 kg/m2 No Primary Care Physician [facility] 01-20-2023 14:38-0400 Body temperature 98.8 [degF] No Primary Care Physician [facility] 01-20-2023 14:38-0400 Body weight 70.3 kg No Primary Care Physician [facility] 01-20-2023 14:38-0400 Diastolic blood pressure 78 mm[Hg] No Primary Care Physician [facility] 01-20-2023 14:38-0400 Heart rate 104 /min No Primary Care Physician [facility] 01-20-2023 14:38-0400 Systolic blood pressure 107 mm[Hg] No Primary Care Physician [facility] 11-11-2022 11:05-0400 Diastolic blood pressure 75 mm[Hg] No Primary Care Physician [facility] 11-11-2022 11:05-0400 Systolic blood pressure 108 mm[Hg] No Primary Care Physician [facility] 11-11-2022 10:52-0400 Body height 152.4 cm No Primary Care Physician [facility] 11-11-2022 10:52-0400 Body mass index (BMI) [Ratio] 30.3 kg/m2 No Primary Care Physician [facility] 11-11-2022 10:52-0400 Body weight 70.47 kg No Primary Care Physician [facility] 11-05-2022 11:10-0400 Body mass index (BMI) [Ratio] 30.4 kg/m2 No Primary Care Physician [facility] 11-05-2022 11:10-0400 Body weight 70.76 kg No Primary Care Physician [facility] 11-05-2022 11:10-0400 Diastolic blood pressure 80 mm[Hg] No Primary Care Physician [facility] 11-05-2022 11:10-0400 Systolic blood pressure 119 mm[Hg] No Primary Care Physician [facility] 09-25-2022 14:07-0400 Body temperature 98.1 [degF] No Primary Care Physician [facility] 09-25-2022 14:07-0400 Diastolic blood pressure 82 mm[Hg] No Primary Care Physician [facility] 09-25-2022 14:07-0400 Heart rate 90 /min No Primary Care Physician [facility] 09-25-2022 14:07-0400 Respiratory rate 16 /min No Primary Care Physician [facility] 09-25-2022 14:07-0400 SaO2% (BldA) [Mass fraction] 98 % No Primary Care Physician [facility] 09-25-2022 14:07-0400 Systolic blood pressure 136 mm[Hg] No Primary Care Physician [facility] 09-23-2022 07:58-0400 Body height 152.4 cm No Primary Care Physician [facility] 09-23-2022 07:58-0400 Body mass index (BMI) [Ratio] 37 kg/m2 No Primary Care Physician [facility] 09-23-2022 07:58-0400 Body weight 86.18 kg No Primary Care Physician [facility] 09-23-2022 00:14-0400 Body temperature 98.8 [degF] No Primary Care Physician [facility] 09-23-2022 00:14-0400 Diastolic blood pressure 82 mm[Hg] No Primary Care Physician [facility] 09-23-2022 00:14-0400 Heart rate 84 /min No Primary Care Physician [facility] 09-23-2022 00:14-0400 Systolic blood pressure 116 mm[Hg] No Primary Care Physician [facility] 09-23-2022 00:13-0400 SaO2% (BldA) [Mass fraction] 97 % No Primary Care Physician [facility] 09-23-2022 00:07-0400 Body height 152.4 cm No Primary Care Physician [facility] 09-23-2022 00:07-0400 Body mass index (BMI) [Ratio] 37.8 kg/m2 No Primary Care Physician [facility] 09-23-2022 00:07-0400 Body weight 87.7 kg No Primary Care Physician [facility] 09-21-2022 15:21-0400 Body mass index (BMI) [Ratio] 37.1 kg/m2 No Primary Care Physician [facility] 09-21-2022 15:21-0400 Body weight 86.23 kg No Primary Care Physician [facility] 09-21-2022 15:21-0400 Diastolic blood pressure 83 mm[Hg] No Primary Care Physician [facility] 09-21-2022 15:21-0400 Systolic blood pressure 118 mm[Hg] No Primary Care Physician [facility] 09-15-2022 15:59-0400 Body temperature 99.6 [degF] No Primary Care Physician [facility] 09-15-2022 15:53-0400 Diastolic blood pressure 71 mm[Hg] No Primary Care Physician [facility] 09-15-2022 15:53-0400 Heart rate 101 /min No Primary Care Physician [facility] 09-15-2022 15:53-0400 Systolic blood pressure 113 mm[Hg] No Primary Care Physician [facility] 09-15-2022 15:24-0400 Body height 152.4 cm No Primary Care Physician [facility] 09-15-2022 15:24-0400 Body mass index (BMI) [Ratio] 36.4 kg/m2 No Primary Care Physician [facility] 09-15-2022 15:24-0400 Body weight 84.6 kg No Primary Care Physician [facility] 09-14-2022 12:53-0400 Diastolic blood pressure 85 mm[Hg] No Primary Care Physician [facility] 09-14-2022 12:53-0400 Heart rate 100 /min No Primary Care Physician [facility] 09-14-2022 12:53-0400 Systolic blood pressure 120 mm[Hg] No Primary Care Physician [facility] 09-14-2022 12:21-0400 Body temperature 98.3 [degF] No Primary Care Physician [facility] 09-14-2022 12:17-0400 Body height 152.4 cm No Primary Care Physician [facility] 09-14-2022 12:17-0400 Body mass index (BMI) [Ratio] 35.7 kg/m2 No Primary Care Physician [facility] 09-14-2022 12:17-0400 Body weight 83 kg No Primary Care Physician [facility] 09-14-2022 11:26-0400 Body mass index (BMI) [Ratio] 36 kg/m2 No Primary Care Physician [facility] 09-14-2022 11:26-0400 Body weight 83.63 kg No Primary Care Physician [facility] 09-14-2022 11:26-0400 Diastolic blood pressure 94 mm[Hg] No Primary Care Physician [facility] 09-14-2022 11:26-0400 Systolic blood pressure 132 mm[Hg] No Primary Care Physician [facility] 09-10-2022 13:29-0400 Body mass index (BMI) [Ratio] 35.7 kg/m2 No Primary Care Physician [facility] 09-10-2022 13:29-0400 Body weight 83 kg No Primary Care Physician [facility] 09-10-2022 13:29-0400 Diastolic blood pressure 84 mm[Hg] No Primary Care Physician [facility] 09-10-2022 13:29-0400 Systolic blood pressure 131 mm[Hg] No Primary Care Physician [facility] 08-25-2022 11:36-0400 Body mass index (BMI) [Ratio] 33.8 kg/m2 No Primary Care Physician [facility] 08-25-2022 11:36-0400 Body weight 78.58 kg No Primary Care Physician [facility] 08-25-2022 11:36-0400 Diastolic blood pressure 81 mm[Hg] No Primary Care Physician [facility] 08-25-2022 11:36-0400 Systolic blood pressure 116 mm[Hg] No Primary Care Physician [facility] 08-16-2022 18:42-0500 Body height 152.4 cm No Primary Care Physician [facility] 08-16-2022 18:42-0500 Body mass index (BMI) [Ratio] 32.8 kg/m2 No Primary Care Physician [facility] 08-16-2022 18:42-0500 Body weight 76.31 kg No Primary Care Physician [facility] 08-16-2022 18:36-0500 Body temperature 97.8 [degF] No Primary Care Physician [facility] 08-16-2022 18:36-0500 Diastolic blood pressure 72 mm[Hg] No Primary Care Physician [facility] 08-16-2022 18:36-0500 Heart rate 102 /min No Primary Care Physician [facility] 08-16-2022 18:36-0500 SaO2% (BldA) [Mass fraction] 100 % No Primary Care Physician [facility] 08-16-2022 18:36-0500 Systolic blood pressure 116 mm[Hg] No Primary Care Physician [facility] 08-12-2022 13:37-0500 Body mass index (BMI) [Ratio] 31.6 kg/m2 No Primary Care Physician [facility] 08-12-2022 13:37-0500 Body weight 75.97 kg No Primary Care Physician [facility] 08-12-2022 13:37-0500 Diastolic blood pressure 74 mm[Hg] No Primary Care Physician [facility] 08-12-2022 13:37-0500 Systolic blood pressure 109 mm[Hg] No Primary Care Physician [facility] 07-30-2022 11:32-0500 Body mass index (BMI) [Ratio] 31 kg/m2 No Primary Care Physician [facility] 07-30-2022 11:32-0500 Body weight 74.5 kg No Primary Care Physician [facility] 07-30-2022 11:32-0500 Diastolic blood pressure 76 mm[Hg] No Primary Care Physician [facility] 07-30-2022 11:32-0500 Systolic blood pressure 108 mm[Hg] No Primary Care Physician [facility] 07-16-2022 13:32-0500 Body mass index (BMI) [Ratio] 30.2 kg/m2 No Primary Care Physician [facility] 07-16-2022 13:32-0500 Body weight 72.74 kg No Primary Care Physician [facility] 07-16-2022 13:32-0500 Diastolic blood pressure 81 mm[Hg] No [facility] [facility] 07-16-2022 13:32-0500 Systolic blood pressure 120 mm[Hg] No Primary Care Physician [facility] 07-06-2022 15:16-0500 Body mass index (BMI) [Ratio] 29 kg/m2 No Primary Care Physician [facility] 07-06-2022 15:16-0500 Body weight 69.65 kg No Primary Care Physician [facility] 07-06-2022 15:16-0500 Diastolic blood pressure 66 mm[Hg] No Primary Care Physician [facility] 07-06-2022 15:16-0500 Systolic blood pressure 99 mm[Hg] No Primary Care Physician [facility] 07-01-2022 20:46-0500 Diastolic blood pressure 84 mm[Hg] No Primary Care Physician [facility] 07-01-2022 20:46-0500 Heart rate 90 /min No Primary Care Physician [facility] 07-01-2022 20:46-0500 Systolic blood pressure 119 mm[Hg] No Primary Care Physician [facility] 07-01-2022 20:44-0500 Body temperature 98 [degF] No Primary Care Physician [facility] 07-01-2022 20:37-0500 Body height 154.94 cm No Primary Care Physician [facility] 07-01-2022 20:37-0500 Body mass index (BMI) [Ratio] 29.2 kg/m2 No Primary Care Physician [facility] 07-01-2022 20:37-0500 Body weight 70.3 kg No Primary Care Physician [facility] 06-22-2022 10:55-0500 Body mass index (BMI) [Ratio] 28.5 kg/m2 No Primary Care Physician [facility] 06-22-2022 10:55-0500 Body weight 68.66 kg No Primary Care Physician [facility] 06-22-2022 10:55-0500 Diastolic blood pressure 83 mm[Hg] No Primary Care Physician [facility] 06-22-2022 10:55-0500 Systolic blood pressure 122 mm[Hg] No Primary Care Physician [facility] 05-27-2022 14:14-0500 Body mass index (BMI) [Ratio] 27.1 kg/m2 No Primary Care Physician [facility] 05-27-2022 14:14-0500 Body weight 65.31 kg No Primary Care Physician [facility] 05-27-2022 14:14-0500 Diastolic blood pressure 78 mm[Hg] No Primary Care Physician [facility] 05-27-2022 14:14-0500 Systolic blood pressure 122 mm[Hg] No Primary Care Physician [facility] 04-28-2022 13:12-0500 Body mass index (BMI) [Ratio] 26.6 kg/m2 No Primary Care Physician [facility] 04-28-2022 13:12-0500 Body weight 63.95 kg No Primary Care Physician [facility] 04-28-2022 13:12-0500 Diastolic blood pressure 78 mm[Hg] No Primary Care Physician [facility] 04-28-2022 13:12-0500 Systolic blood pressure 112 mm[Hg] No Primary Care Physician [facility] 03-29-2022 13:02-0400 Body mass index (BMI) [Ratio] 25.9 kg/m2 No Primary Care Physician [facility] 03-29-2022 13:02-0400 Body weight 62.14 kg No Primary Care Physician [facility] 03-29-2022 13:02-0400 Diastolic blood pressure 74 mm[Hg] No Primary Care Physician [facility] 03-29-2022 13:02-0400 Systolic blood pressure 114 mm[Hg] No Primary Care Physician [facility] 03-11-2022 10:32-0400 Body height 154.94 cm No Primary Care Physician [facility] Work Phone: 03-11-2022 10:32-0400 Body mass index (BMI) [Ratio] 25.4 kg/m2 No Primary Care Physician [facility] 03-11-2022 10:32-0400 Body weight 61.23 kg No Primary Care Physician [facility] 03-11-2022 10:32-0400 Diastolic blood pressure 69 mm[Hg] No Primary Care Physician [facility] 03-11-2022 10:32-0400 Systolic blood pressure 101 mm[Hg] No Primary Care Physician [facility] Encounters Encounter Date Encounter Type Care Provider Facility Start: 01-16-2025 End: 01-16-2025 ambulatory Sharri Begum Facility:[facility] Start: 01-16-2025 End: 01-16-2025 Patient encounter procedure Sharri Kel CNM -[facility] Work Phone: Start: 01-07-2025 Patient encounter procedure Sharri Kel CNM -Laboratory [facility] Work Phone: Start: 01-07-2025 ambulatory Sharri Begum Facility :[facility] Start: 01-07-2025 End: 01-07-2025 Patient encounter procedure Sharri Begum CNM -[facility] Work Phone: Start: 01-07-2025 End: 01-07-2025 ambulatory No Primary Care Physician -[facility] Start: 01-03-2025 End: 01-03-2025 ambulatory LYNSEY Hinkle [facility] Start: 12-25-2024 End: 12-25-2024 ambulatory No Primary Care Physician -[facility] Start: 12-25-2024 End: 12-25-[address] Lynsey Ambrocio DO -[facility] Work Phone: Start: 12-11-2024 End: 12-11-2024 Patient encounter procedure Imani ZEE -[facility] Work Phone: Start: 12-11-2024 End: 12-11-2024 ambulatory No Primary Care Physician -[facility] Start: 12-05-2024 ambulatory Lynsey Edwardsty:[facility] Start: 12-05-2024 Non-patient / Non-visit Dr. Clarence Ambrocio DO -[facility] Start: 12-05-2024 End: 12-05-2024 ambulatory No Primary Care Physician [facility] Work Phone: Start: 12-05-2024 End: 12-05-[address] Lynsey Ambrocio DO -[facility] Triage Work Phone: Start: 11-27-2024 End: 11-27-[address] Lynsey Ambrocio DO -[facility] Work Phone: Start: 11-27-2024 End: 11-27-2024 ambulatory No Primary Care Physician [facility] Work Phone: Start: 11-15-2024 End: 11-15-2024 ambulatory [facility] Start: 11-13-2024 End: 11-13-2024 ambulatory No Primary Care Physician [facility] Work Phone: Start: 11-13-2024 End: 11-13-2024 Patient encounter procedure Imani ZEE -[facility] Work Phone: Start: 11-13-2024 End: 11-13-2024 ambulatory Sharri Begum Facility:[facility] Start: 10-30-2024 End: 10-30-2024 Patient encounter procedure Sharri SAMPSON -[facility] Work Phone: Start: 10-30-2024 End: 10-30-2024 ambulatory No Primary Care Physician [facility] Work Phone: Start: 10-18-2024 End: 10-18-2024 Non-patient / Non-visit Dr. Manolo Merritt MD -[facility] Work Phone: Start: 10-18-2024 End: 10-18-2024 Patient encounter procedure Imani ZEE -[facility] Work Phone: Start: 10-18-2024 End: 10-18-2024 ambulatory No Primary Care Physician [facility] Work Phone: Start: 10-18-2024 End: 10-18-2024 ambulatory Imani Sullivan NP Facility:[facility] Start: 10-16-2024 End: 10-16-2024 Emergency department patient visit Dr. Edwin Rome MD -Emergency Department Work Phone: Start: 10-02-2024 End: 10-02-2024 Patient encounter procedure Imani ZEE -[facility] Work Phone: Start: 10-02-2024 End: 10-02-2024 ambulatory No Primary Care Physician Facility:[facility] Start: 09-13-2024 End: 09-13-2024 ambulatory [facility] Start: 09-04-2024 End: 09-04-2024 Patient encounter procedure Imani ZEE -[facility] Work Phone: Start: 09-04-2024 End: 09-04-2024 ambulatory No Primary Care Physician Facility:[facility] Start: 08-07-2024 End: 08-07-[address] Karyna Carr MD -[facility] Work Phone: Start: 08-07-2024 End: 08-07-2024 ambulatory No Primary Care Physician Facility:[facility] Start: 07-10-2024 End: 07-10-2024 Patient encounter procedure Sharri Begum CNM -Lab, [facility] Start: 07-10-2024 End: 07-10-2024 ambulatory No Primary Care Physician Facility:[facility] Start: 07-06-2024 End: 07-06-2024 Patient encounter procedure Sharri Begum CNM -Laboratory, Specimen Work Phone: Start: 07-06-2024 End: 07-06-2024 Patient encounter procedure Sharri Begum CNM -[facility] Work Phone: Start: 07-06-2024 End: 07-06-2024 ambulatory No Primary Care Physician Facility:[facility] Start: 07-06-2024 End: 07-06-2024 ambulatory No Primary Care Physician Facility:[facility] Start: 06-22-2024 ambulatory Annette Mehtaly Facility :[facility] Start: 04-03-2024 Encounter for gynecological examination (general) (routine) with abnormal findings Imani Sullivan NP [facility] Start: 04-03-2024 End: 04-03-2024 ambulatory No Primary Care Physician Facility:[facility] Start: 04-03-2024 End: 04-03-2024 ambulatory No Primary Care Physician Facility:[facility] Start: 03-13-2024 End: 03-13-2024 ambulatory No Primary Care Physician Facility:[facility] Start: 02-15-2024 End: 02-15-2024 ambulatory ALMAZ GORDON [facility] Start: 12-22-2023 End: 12-22-2023 ambulatory CHAVA EL [facility] Start: 06-19-2023 End: 06-19-2023 Emergency department patient visit YUDY ADAIRIAPENNY [facility] Start: 05-02-2023 End: 05-02-2023 ambulatory No Primary Care Physician [facility] Work Phone: Start: 05-02-2023 End: 05-02-2023 Patient encounter procedure No Primary Care Physician [facility]-Ultrasound, [facility] Work Phone: Start: 04-21-2023 End: 04-21-2023 ambulatory No Primary Care Physician [facility] Work Phone: Start: 04-21-2023 End: 04-21-2023 Patient encounter procedure No Primary Care Physician [facility]-Laboratory, Specimen Work Phone: Start: 04-21-2023 End: 04-21-2023 Patient encounter procedure No Primary Care Physician [facility] Work Phone: Start: 03-01-2023 End: 03-01-2023 Patient encounter procedure No Primary Care Physician [facility] Work Phone: Start: 02-15-2023 End: 02-15-2023 ambulatory LINH ALEXANDRA Facility:[facility] Start: 02-15-2023 End: 02-15-2023 Patient encounter procedure Linh Alexandra OD Work Phone: Ophthalmology Comment on above: Amblyopia suspect, l eft eye (Primary Dx); Anisometropia; Accommodative insufficiency Start: 01-20-2023 End: 01-20-2023 Patient encounter procedure No Primary Care Physician [facility] Work Phone: Start: 12-23-2022 End: 12-23-2022 ambulatory No Primary Care Physician [facility] Work Phone: Start: 12-23-2022 End: 12-23-2022 Patient encounter procedure No Primary Care Physician [facility]-Laboratory, Specimen Work Phone: Start: 12-23-2022 End: 12-23-2022 Patient encounter procedure No Primary Care Physician [facility] @ Start: 11-11-2022 End: 11-11-2022 ambulatory No Primary Care Physician [facility] Work Phone: Start: 11-11-2022 End: 11-11-2022 Patient encounter procedure No Primary Care Physician [facility]-Laboratory, Specimen Start: 11-11-2022 End: 11-11-2022 Patient encounter procedure No Primary Care Physician [facility] Start: 11-05-2022 End: 11-05-2022 Patient encounter procedure No Primary Care Physician [facility] Start: 09-25-2022 Non-patient / Non-visit No Parvin dominique Care Physician [facility] Start: 09-24-2022 Non-patient / Non-visit No Parvin fox Care Physician [facility] Start: 09-23-2022 Non-patient / Non-visit No Parvin fox Care Physician [facility] Start: 09-23-2022 End: 09-25-2022 Evaluation and management of inpatient No Primary Care Physician [facility] Start: 09-22-2022 End: 09-23-2022 ambulatory No Primary Care Physician [facility] Work Phone: Start: 09-22-2022 End: 09-23-2022 Patient encounter procedure No Primary Care Physician [facility] Start: 09-21-2022 End: 09-21-2022 ambulatory No Primary Care Physician [facility] Work Phone: Start: 09-21-2022 End: 09-21-2022 Patient encounter procedure No Primary Care Physician [facility]-Laboratory, Specimen Start: 09-21-2022 End: 09-21-2022 Patient encounter procedure No Primary Care Physician [facility] Start: 09-15-2022 Non-patient / Non-visit No Parvin fox Care Physician [facility] Start: 09-15-2022 End: 09-15-2022 Patient encounter procedure No Primary Care Physician [facility] Start: 09-14-2022 Non-patient / Non-visit No Parvin fox Care Physician [facility] Start: 09-14-2022 End: 09-14-2022 ambulatory No Primary Care Physician [facility] Work Phone: Start: 09-14-2022 End: 09-14-2022 Patient encounter procedure No Primary Care Physician [facility] Start: 09-10-2022 End: 09-10-2022 ambulatory No Primary Care Physician [facility] Work Phone: Start: 09-10-2022 End: 09-10-2022 Patient encounter procedure No Primary Care Physician [facility]-Laboratory, Specimen Start: 09-10-2022 End: 09-10-2022 Patient encounter procedure No Primary Care Physician [facility] Start: 08-25-2022 End: 08-25-2022 Patient encounter procedure No Primary Care Physician [facility] Start: 08-16-2022 Non-patient / Non-visit No Parvin fox Care Physician [facility] Start: 08-16-2022 End: 08-16-2022 ambulatory No Primary Care Physician [facility] Work Phone: Start: 08-16-2022 End: 08-16-2022 Patient encounter procedure No Primary Care Physician [facility] Start: 08-12-2022 End: 08-12-2022 Patient encounter procedure No Primary Care Physician [facility] @ Start: 07-30-2022 End: 07-30-2022 Patient encounter procedure No Primary Care Physician [facility] Start: 07-16-2022 End: 07-16-2022 Patient encounter procedure No Primary Care Physician [facility] Start: 07-06-2022 End: 07-06-2022 Patient encounter procedure No Primary Care Physician [facility] Start: 07-03-2022 Non-patient / Non-visit No [facility] Care Physician [facility] Start: 07-01-2022 End: 07-01-2022 Patient encounter procedure No Primary Care Physician [facility] Start: 06-22-2022 End: 06-22-2022 ambulatory No Primary Care Physician [facility] Work Phone: Start: 06-22-2022 End: 06-22-2022 Patient encounter procedure No Primary Care Physician [facility] Start: 05-27-2022 End: 05-27-2022 Patient encounter procedure No Primary Care Physician [facility] Start: 04-28-2022 End: 04-28-2022 Patient encounter procedure No Primary Care Physician [facility] Start: 03-29-2022 End: 03-29-2022 Patient encounter procedure No Primary Care Physician [facility] Start: 03-11-2022 End: 03-11-2022 ambulatory No Primary Care Physician [facility] Work Phone: Start: 03-11-2022 End: 03-11-2022 Patient encounter procedure No Primary Care Physician [facility]-Laboratory Start: 03-11-2022 End: 03-11-2022 Patient encounter procedure No Primary Care Physician [facility] Procedures Date Procedure Procedure Detail Performing Clinician [...] Activity Detail Author Start: 12-05-2024 Nonstress test [facility] Start: 12-05-2024 Obstetric monitoring [facility] Start: 12-05-2024 Vital signs measurements [facility] Start: 12-05-2024 [facility] Start: 12-05-2024 Patient discharge [facility] Start: 11-13-2024 CBC W Auto Differential panel - Blood [facility] Start: 11-13-2024 Measurement of glucose 2 hours after glucose challenge for glucose tolerance test [facility] Start: 11-13-2024 Serologic test for syphilis [facility] Start: 11-13-2024 [facility] Start: 10-16-2024 [facility] Start: 10-16-2024 Urnls dip stick/tablet reagent auto microscopy URINALYSIS AUTO W/SCOPE [facility] Start: 02-11-2023 Influenza vaccination INFLUENZA (#1) [facility] Start: 11-11-2022 Liquid based cervical cytology screening [facility] Start: 09-25-2022 Patient discharge [facility] Start: 09-24-2022 Consultation [facility] Start: 09-23-2022 Administration of medication [facility] Start: 09-23-2022 Application of ice collar, cap or bag [facility] Start: 09-23-2022 Catheterization of vein [facility] Start: 09-23-2022 Introduction of urinary catheter [facility] Start: 09-23-2022 Measuring intake and output [facility] Start: 09-23-2022 Notification of physician [facility] Start: 09-23-2022 Procedure discontinued [facility] Start: 09-23-2022 Provision of activity privileges [facility] Start: 09-23-2022 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 Start: 09-23-2022 Vital signs measurements [facility] Start: 09-23-2022 [facility] Start: 09-23-2022 Admission procedure [facility] Start: 09-23-2022 Nonstress test [facility] Start: 09-23-2022 Obstetric monitoring [facility] Start: 09-23-2022 Vital signs measurements [facility] Start: 09-23-2022 [facility] Start: 09-23-2022 Patient discharge [facility] Start: 09-22-2022 monitoring labor phys written report MONITOR W/REPORT [facility] Start: 09-22-2022 nonstress test NON-STRESS TEST [facility] Start: 09-21-2022 Blood count complete auto&auto difrntl wbc COMPLETE CBC W/AUTO DIFF WBC [facility] Start: 09-21-2022 Collection venous blood venipuncture ROUTINE VENIPUNCTURE [facility] Start: 09-21-2022 Comprehensive metabolic panel COMPREHEN METABOLIC PANEL [facility] Start: 09-21-2022 Creatinine other source ASSAY OF URINE CREATININE [facility] Start: 09-21-2022 Protein total xcpt refractometry urine ASSAY OF PROTEIN URINE [facility] Start: 09-15-2022 Patient discharge [facility] Start: 09-15-2022 Nonstress test [facility] Start: 09-15-2022 Obstetric monitoring [facility] Start: 09-15-2022 Vital signs measurements [facility] Start: 09-15-2022 [facility] Start: 09-15-2022 Catheterization of vein [facility] Start: 09-14-2022 End: 09-14-2022 [facility] Start: 09-14-2022 Nonstress test [facility] Start: 09-14-2022 Obstetric monitoring [facility] Start: 09-14-2022 Vital signs measurements [facility] Start: 09-14-2022 Patient discharge [facility] Start: 08-16-2022 Nonstress test [facility] Start: 08-16-2022 Obstetric monitoring [facility] Start: 08-16-2022 Vital signs measurements [facility] Start: 08-16-2022 [facility] Start: 08-16-2022 Patient discharge [facility] Start: 07-01-2022 Nonstress test [facility] Start: 07-01-2022 End: 07-01-2022 [facility] Start: 07-01-2022 Obstetric monitoring [facility] Start: 07-01-2022 Vital signs measurements [facility] Start: 07-01-2022 Patient discharge [facility] Start: 06-13-2022 DEPRESSION ASSESSMENT DEPRESSION ASSESSMENT [facility] Start: 03-11-2022 Liquid based cervical cytology screening [facility] Work Phone: Start: 2020 PAP TESTING PAP TESTING [facility] Start: 2018 Urine microalbumin profile DTAP,TDAP,TD (1 - Tdap) [facility] Start: 2017 CHLAMYDIA SCREENING (18-24) CHLAMYDIA SCREENING (18-24) [facility] Start: 2017 GC (GONORRHEA) SCREENING (18-24) GC (GONORRHEA) SCREENING (18-24) [facility] Start: 2017 HEPATITIS C SCREENING HEPATITIS C SCREENING [facility] Start: 2017 HIV SCREENING HIV SCREENING [facility] Start: 2013 PEDS TO ADULT TRANSITION ANNUAL ASSESSMENT PEDS TO ADULT TRANSITION ANNUAL ASSESSMENT [facility] Start: 2011 PEDS TO ADULT TRANSITION INITIAL DISCUSSION PEDS TO ADULT TRANSITION INITIAL DISCUSSION [facility] Start: 2008 HPV VACCINE (1 - 2-dose series) HPV VACCINE (1 - 2-dose series) [facility] Start: 1999 COVID-19 VACCINE (#1) COVID-19 VACCINE (#1) [facility] Start: 1999 HEPATITIS B (1 of 3 - 3-dose series) HEPATITIS B (1 of 3 - 3-dose series) [facility] Bacteria identified in Urine by Culture [facility] Bacteria identified in Urine by Culture Urine Culture [facility] CBC W Auto Different ial panel - Blood [facility] CBC W Auto Different ial panel - Blood [facility] Erythrocyte mean corpuscular volume determination [facility] [facility] [Volume Fraction] of Blood [facility] Hemoglobin [Mass/vol ume] in Blood [facility] Leukocytes [#/volume ] in Blood [facility] Mean corpuscular hemoglobin concentration determination [facility] Mean corpuscular hemoglobin determination [facility] Measurement of gluco se 2 hours after glucose challenge for glucose tolerance test [facility] Neutrophil count [facility] Neutrophil percent differential count [facility] Path report.final Dx Spec [facility] Work Phone: Path report.final Dx Spec [facility] Patient Education [facility] Work Phone: Patient referral [facility] Work Phone: Platelets [#/volume] in Blood [facility] Protein/Creatinine [ Ratio] in Urine [facility] Red blood cell count [facility] Red cell distributio n width determination [facility] Serologic test for syphilis [facility] Streptococcus agalac tiae [Presence] in Unspecified specimen by Organism specific culture [facility] Streptococcus agalac tiae [Presence] in Unspecified specimen by Organism specific culture [facility] US Pelvis [facility] US Pelvis transvaginal [facility] Immunizations Immunization Date Immunization Notes Care Provider Samina garces 09-10-2022 tetanus toxoid, redu reji diphtheria toxoid, and acellular pertussis vaccine, adsorbed No Primary Care Physician [facility] Payers Date Payer Category Payer Self-pay [id number] 2022 Medicaid [id number] 2022 Medicaid [facility] [id number] 2022-Present [phone] [address] [place] [address] Medicaid [id number]. [id number] 1999 Unknown [id number] 2.840.1.069589.3.579.2.651 1999 Unknown [id number] 2.840.1.532852.3.579.2.297 1999 Unknown [id number] 2.840.1.314811.3.579.2.297 1999 Unknown [id number] 2.16840.1.988771.3.579.2.479 1999 Unknown [id number] 2.16840.1.336498.3.579.2.479 1999 Unknown [id number] 2.16840.1.615919.3.579.2.479 Unknown [id number] Unknown [id number] 2.16840.1.597113.3.579.2.462 Unknown [id number] 2.16.840.1.895382.3.579.2.462 Unknown [id number] 2.16.840.1.697214.3.579.2.462 Unknown [id number] 2.16.840.1.526339.3.579.2.462 Unknown [id number] 2.16.840.1.871297.3.579.2.462 Unknown [id number] 2.16.840.1.017736.3.579.2.462 Unknown [id number] 2.840.1.942300.3.579.2.462 Unknown [id number] 2.840.1.620093.3.579.2.462 Unknown [id number] 2.840.1.091979.3.579.2.462 Unknown [id number] 2.840.1.977330.3.579.2.462 Unknown [id number] 2.840.1.906918.3.579.2.462 Unknown [id number] 2.840.1.800511.3.579.2.462 Unknown [id number] 2.840.1.421319.3.579.2.462 Unknown [id number] 2.840.1.323222.3.579.2.462 Unknown [id number] 2.840.1.582714.3.579.2.462 Unknown [id number] 2.840.1.745289.3.579.2.462 Unknown [id number] 2.840.1.337738.3.579.2.462 Unknown [id number] 2.840.1.686638.3.579.2.462 Unknown [id number] 2.16840.1.247614.3.579.2.462 Unknown [id number] 2.16.840.1.711393.3.579.2.462 Unknown [id number] 2.16.840.1.392985.3.579.2.462 Unknown [id number] 2.16.840.1.320761.3.579.2.462 Unknown [id number] 2.16.840.1.588011.3.579.2.462 Unknown [id number] 2.840.1.850879.3.579.2.462 Unknown [id number] 2.16.840.1.449180.3.579.2.462 Social History Date Type Detail Facility Start: 03-11-2022 End: 04-21-2023 Tobacco smoking status INIS Unknown if ever smoked [facility] Start: 2000 Sex Assigned At Female [facility] Start: 02-15-2023 End: 10-16-2024 Tobacco smoking status NHIS Never smoked tobacco [facility] Start: 02-15-2023 Tobacco use and exposure Smokeless tobacco non-user [facility] Start: 02-15-2023 History of Social function [facility] Start: 02-15-2023 Tobacco use panel [facility] National Score (1-100), lower number is lower risk 50 [facility] Start: 2000 Sex Assigned At Not on file [facility] Goals Date Patient Goal Desired Activity /State Mental Status Date Assessment Result Facility 10-16-2024 Cognitive function Level Of Cons ciousness Awake;Alert;Appropriate;Follow s Commands [facility] Work Phone: Clinical Notes 03-11-2022 to 01-16-2025 Note Date & Type Note Facility 01-16-2025 Progress note [facility] 01-16-2025 Progress note Note Date/Time January 16, 2025 2:12pm [facility] [address], [address] [place] [address] OFFICE VISIT Date of Service: 01/16/25 MR#: [id number] Acct: [id number] Name: GRANT RUVALCABA Rep #: [id number] : 2000 Provider: SPIKE Begum Age/Sex: 24/F Location: [facility] Status: Signed Intake Vital Signs 12/25/24 13:55 01/07/25 14:27 01/16/25 13:45 Height 5 ft 1 in 5 ft 1 in 5 ft 1 in Weight: 210 lb BMI 39.6 BP 125/90 H Intake Visit Reasons: 37 wk ob Train System Operator Required: No Feel stressed/tense/nervous/anxious/difficulty sleeping: not at [...] house number of children: 1 current occupation: [employer] current occupational exposures/hazards: No pets and animals: [...] 1-2 times per week duration: 15-30 minutes/day eveline/orthodox: Anabaptism seatbelt use: always do you feel safe [...] kate HPI 37 wk ob Details: GRANT RUVALCBAA is a 24 year old who presents [...] Signs and Symptoms of Preeclampsia, Labor Signs, [place] Education, Family Medical Leave or Disability Forms, [...] Cosignalpesh Signature: Date (if applicable) CC: ~ [facility] Work Phone: 1(812) 137-961407-28-2025 [facility] [address], [address] [place] [address] OFFICE VISIT Date of Service: 01/07/25 MR#: [id number] Acct: [id number] Name: GRANT RUVALCABA Rep #: [id number] : 2000 Provider: SPIKE Begum Age/Sex: 24/F Location: [facility] Status: Signed Intake Vital Signs 11/13/24 13:07 12/25/24 13:55 01/07/25 14:27 Height 5 ft 1 in 5 ft 1 in 5 ft 1 in Weight: 198 lb 203 lb 2 oz BMI 37.4 38.3 BP 120/83 H 112/81 H Intake Visit Reasons: 36 wk ob Chief Complaint: 36wk OB Train System Operator Required: No Is patient in pain?: No [...] house number of children: 1 current occupation: [employer] current occupational exposures/hazards: No pets and animals: [...] 1-2 times per week duration: 15-30 minutes/day eveline/orthodox: Anabaptism seatbelt use: always do you feel safe [...] Cosigner Signature: Date (if applicable) CC: ~ [facility]07-28-2025 Progress note Author Sharri Begum [facility] Note Date/Time January 07, 2025 2:56 pm [facility] [address] [place] [address], [address] [place] [address] OFFICE VISIT Date of Service: 01/07/25 MR#: [id number] Acct: [id number] Name: GRANT RUVALCABA Rep #: [id number] : 2000 Provider: SPIKE Begum Age/Sex: 24/F Location: [facility] Status: Signed Intake Vital Signs 11/13/24 13:07 12/25/24 13:55 01/07/25 14:27 Height 5 ft 1 in 5 ft 1 in 5 ft 1 in Weight: 198 lb 203 lb 2 oz BMI 37.4 38.3 BP 120/83 H 112/81 H Intake Visit Reasons: 36 wk ob Chief Complaint: 36wk OB Train System Operator Required: No Is patient in pain?: No [...] house number of children: 1 current occupation: [employer] current occupational exposures/hazards: No pets and animals: [...] 1-2 times per week duration: 15-30 minutes/day eveline/orthodox: Anabaptism seatbelt use: always do you feel safe [...] this visit. GA appropriate handout given. 01/07/25 2996 <Electronically signed by Sharri nice CNM> Date _ Sharri Begum CNM Cosigner Signature: Date (if applicable) CC: ~ [facility] Work Phone: 1(630) 923-983606-17-2025 [facility] [address] [place] [address], [address] [place] [address] OFFICE VISIT Date of Service: 11/27/24 MR#: [id number] Acct: [id number] Name: GRANT RUVALCABA Rep #: [id number] : 2000 Provider: Dr. Lela Ambrocio DO Age/Sex: 24/F Location: [facility] Status: Signed Intake Vital Signs 10/30/24 13:25 11/13/24 13:07 11/27/24 13:20 Height 5 ft 1 in 5 ft 1 in 5 ft 1 in Weight: 192 lb BMI 36.2 BP 109/72 Intake Visit Reasons: 30 wk ob Chief Complaint: 30 Week OB Train System Operator Required: No Is patient in pain?: No [...] house number of children: 1 current occupation: [employer] current occupational exposures/hazards: No pets and animals: [...] 1-2 times per week duration: 15-30 minutes/day eveline/orthodox: Anabaptism seatbelt use: always do you feel safe at home: Yes additional social history: : [employer] online History 2 Elective abortions Hx Para [...] 11/27/24 1333 e Velde DO> Date _ Lynsey Bloom Robert DO [facility] Signature: Date (if applicable) CC: ~ [facility]05-20-2025 [facility] [address] [place] [address], [address] [place] [address] OFFICE VISIT Date of Service: 10/30/24 MR#: [id number] Acct: [id number] Name: GRANT RUVALCABA DAVID Rep #: [id number] : 2000 Provider: SPIKE Begum Age/Sex: 24/F Location: [facility] Status: Signed Intake Vital Signs 09/04/24 15:35 10/18/24 11:39 10/30/24 13:25 Height 5 ft 5 ft 1 in 5 ft 1 in Weight: 183 lb 2 oz BMI 34.6 BP 113/78 Intake Visit Reasons: 26wk ob *25w6d Chief Complaint: 26wk OB Train System Operator Required: No Is patient in pain?: No [...] house number of children: 1 current occupation: [employer] current occupational exposures/hazards: No pets and animals: [...] 1-2 times per week duration: 15-30 minutes/day eveline/orthodox: Anabaptism seatbelt use: always do you feel safe at home: Yes additional social history: : [employer] online History 2 Elective abortions Hx Para 1 Spontaneous abortions Hx # Term Pregnancies 1 Ectopic pregnancies Hx # Pregnancies Multiple births # of living children 1 Past Pregnancies Del. Date Name GA/Weeks Outcome Route Bth Weight Infant Gen Labor Lgth Anesthesia Del Locatn Provider FOB 09/23/22 Kate 38 live - full term 7lbs 6oz Male epi dural [facility] Karyna Magaly Killian Delivery Date: 09/23/22 Last [...] Signs and Symptoms of Preeclampsia, Labor Signs, [place] Education and Depression; Discussed Tobacco Cessation ROS [...] Cosigner Signature: Date (if applicable) CC: ~ [facility]05-08-2025 Radiology Diagnostic study note [facility] Imaging Services [address] [place], [place] [address] Chest PA and Lateral MR#: [id number] Acct: [id number] Name: GRANT RUVALCABA Rep #: [id number] : 2000 F 24 From: Jazzmine Fisher MD PCP: Neda Keith PA-C 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 Study:Chest PA and Lateral Date of Exam: 10/18/24 Exam# [id number] Ordering Dr: Imani Sullivan 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 PAVER INSTALLER-C EXAM: XR Chest, 2 Views CLINICAL INDICATION: [...] RAD-BREE- CC: SAADIA Sullivan; GERALDINE Keith ~ Financial Operations Clerk: Signed [facility]04-22-2025 Evaluation note* Diagnosis Onset Date Resolution Status [...] 2:21pm Trauma during acute J 2024 2:21pm [facility] Work Phone: 1(895) 151-154304-22-2025 Evaluation note* Diagnosis Onset Date Resolution Status [...] Trauma during acute A ugust 2024 1:37pm [facility] Work Phone: 1([phone]) 977-384403-25-2025 Evaluation note* Diagnosis Onset Date Resolution Status [...] :36pm Trauma during acute J isis2024 1:36pm [facility] Work Phone: 1([phone]) 276-874103-25-2025 Evaluation note* Diagnosis Onset Date Resolution Status [...] Trauma during acute J isis 2024 1:51pm [facility] Work Phone: 1([phone]) 318-290102-25-2025 Evaluation note* Diagnosis Onset Date Resolution Status [...] antepartum resol mt November 13, 2024 1:02pm [facility] Work Phone: 1(131) 309-844102-25-2025 Evaluation note* Diagnosis Onset Date Resolution Status [...] high-risk acute November 13, 2024 1 :02pm [facility] Work Phone: 1([phone]) 103-967802-25-2025 Evaluation note* Diagnosis Onset Date Resolution Status [...] of high-risk acute November 27, 2024 1:17pm [facility] Work Phone: 1([phone]) 794-357501-24-2025 Evaluation note* Diagnosis Onset Date Resolution Status [...] high-risk acute October 18, 2024 11 :33am [facility] Work Phone: 1([phone]) 227-384301-24-2025 Evaluation note* Diagnosis Onset Date Resolution Status [...] high-risk acute October 30, 2024 1 :21pm [facility] Work Phone: [phone]) 977-783609-05-2023 NoteHNO ID: [id number] Author: Linh Alexandra OD Service: ? Author Type: AEROSPACE PROJECT ENGINEER Type: Progress Notes Filed: 02/15/2023 3:54 PM [...] Linh Alexandra OD February 15, 2023 3:53 [facility]09-05-2023 History of Present illness Narrative* Linh [...] 15, 2023 3:53 PM [facility] NotePap Smear Specimen AdequacyJuly 2022 11:59pmComment.Satisfactory for evaluation. Endocervical and/or squamous metaplasticcells (endocervical component)are present.[facility] INTER[facility]ACED A#[id number] Medical [facility]health Rehabilitation HospitalComment on above:Satisfactory for evaluation. Endocervical and/or squamous metaplasticcells (endocervical component)are present.11-11-2022 NotePap Smear QC ReviewJune 2022 2:18pm Comment.Joana Ambriz, Supervisory Dealer Analyst (ASCP)[facility] INTER[facility]AC[facility] A#[id number] Medical [facility]health Rehabilitation HospitalComment on above:Joana Ambriz, Supervisory Dealer Analyst (ASCP)09-25-[address] Jones [facility] September 25, 2022 10:03am Note Date/Time September 25, 2022 10: 03am [facility] Medical Records Department [address] [place] [address] Progress Note - OBGYN 09/25/22 1003 MR#: [id number] Acct: [id number] Name: GRANT ARMSTRONG Rep #:[id number] : 2000 22 From: Lynsey Ambrocio DO PCP: Care Physician,No Primary Status :ADM IN Location: PM178-1 Subjective Subjective Patient doing well without complaints. [...] Cosigner Signature (if applicable): CC: ~ Signed [facility] Work Phone: 1([phone]) 975-452804-14-[address] Jones [facility] September 24, 2022 7:54am Note Date/Time September 24, 2022 7:5 4am [facility] Medical Records Department [address] [place] [address] Progress Note - OBGYN 09/24/22 0753 MR#: [id number] Acct: [id number] Name: GRANT ARMSTRONG Rep #:[id number] : 2000 22 From: Lynsey Ambrocio DO PCP: Care Physician,No Primary Status :ADM IN Location: NN312-3 Objective Data Objective Data Patient doing well [...] 79.2 H, Lymph % (Auto) 10.0 L, [place] % (Auto) 8.9, Eos % (Auto) 1.1, [...] Cosigner Signature (if applicable): CC: ~ Signed [facility] Work Phone: 1(176) 837-428704-13-[address] Carr [facility] September 23, 2022 8:40pm Note Date/Time September 23, 2022 8:2 6pm [facility] Medical Records Department [address] [place] [address] Instructions for Home/Discharge Instructions 09/23/222024 MR#: [id number] Acct: [id number] Name: GRANT ARMSTRONG Rep #:[id number] : 2000 From: Karyna paulino MD PCP: [...] CC: No Primary Care Physician ~ Signed [facility] Work Phone: 1([phone]) 810-585604-13-2023 Procedure [facility] 09-23-[address] Carr [facility] September 23, 2022 5:13pm Note Date/Time September 23, 2022 5:1 3pm [facility] Medical Records Department [address] [place] [address] Progress Note 09/23/221709 MR#: [id number] Acct: [id number] Name: GRANT ARMSTRONG Rep #:[id number] : 2000 From: Karyna paulino MD PCP: Care Physician,No Primary Status :ADM IN Location: [address] Progress Note patient making change now 6 cm current tracing: FHT: 120 Moderate variability reactive prolonged decel followed by early decelerations category II tracing Pablo: q 2-3 Contractions reviewed tracing abnormalities since last note: fluid bolus, position changes, pitocin off A/P: exp mangement, making change overall reassuring 09/23/221712 <Electronically signed by Karyna Carr MD> Karyna Carr MD Cosigner Signature (if applicable): CC: ~ Signed [facility] Work Phone: [phone]) 303-836104-13-2023 History and physical note Author Dr. 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 09/23/22 1710 <Electronically signed by Karyna Carr MD> Cosigner Signature (if applicable): CC: Dr. Karyna Carr MD; No Primary Care Physician~ Signed [facility] Work Phone: [phone]) 540-720809-29-2022 NotePap Smear Specimen AdequacySeptember 2021 1:19pmComment.Satisfactory for evaluation. Endocervical and/or squamous metaplasticcells (endocervical component)are present.[facility] INTER[facility]ACED A#[id number] County HospitalComment on above:Satisfactory for evaluation. Endocervical and/or squamous metaplasticcells (endocervical component)are present.Evaluation note* Diagnosis Onset Date Resolution Status Asthma acute Fibromyalgia acute acute Supervision of high risk , antepartum acute [facility] Work Phone: Evaluation note* Diagnosis Onset Date [...] antepartum acute Marginal placenta previa res olved [facility] Work Phone: Evaluation note* Diagnosis Onset Date [...] Supervision of high risk , antepartum acute [facility] Work Phone: Evaluation note* Diagnosis Onset Date [...] Supervision of high risk , antepartum acute [facility] Work Phone: Evaluation note* Diagnosis Onset Date [...] acute Proteinuria affecting in third trimester acute [facility] Work Phone: Evaluation note* Diagnosis Onset Date [...] acute UTI (urinary tract infection) during acute [facility] Work Phone: Evaluation note* Diagnosis Onset Date [...] resolved UTI (urinary tract infection) during resolved [facility] Work Phone: Evaluation note* Diagnosis Onset Date [...] resolved UTI (urinary tract infection) during resolved [facility] Work Phone: Evaluation note* Diagnosis Onset Date [...] risk HPV cervical acute Depression affecting acute [facility] Work Phone: Evaluation note* Diagnosis Onset Date [...] risk HPV cervical acute Depression affecting acute [facility] Work Phone: Evaluation note* Diagnosis Amblyopia suspect, left eye- Primary Anisometropia Accommodative insufficiency Presbyopia documented in this encounter [facility] Diagnosis Onset Date Resolution Status Sinusitis noneactive Pelvic pain acute [facility] Work Phone: Hospital Discharge instructions Additional Instructions Keep next follow up appointment.[facility] Work Phone: Progress note Author Dr. Carr [facility] September 14, 2022 1:15pm Note Date/Time September 14, 2022 1:15 pm [facility] Medical Records Department [address] [place] [address] OB Triage Progress Note 09/14/22 1314 MR#: [id number] Acct: [id number] Name: GRANT ARMSTRONG Rep #:[id number] : 2000 From: Karyna paulino MD PCP: Care Physician,No Primary Status :REG CLI Y DOS: Location: [place] [address] Progress Notes Date of Service: 09/14/22 Progress Note: Patient presents for triage evaluation secondary to elevated blood pressure FHT: 140 Moderate variability reactive no decelerations category I tracing Pablo: no regular Contractions Assessment and plan: elevated [...] (0-200) mg/g CRE Charges/Coding Procedures Urinary/Genital 52xxx-59xxx: 42842-58 non-stress test Interp 09/14/22 1315 <Electronically signed by Karyna atkinson MD> Date _ Karyna Carr MD Cosigner Signature (if applicable): Date CC: Dr. Karyna Carr MD; No Primary Care Physician ~ Signed [facility] Work Phone: Progress note Author Sharri Begum [facility] Note Date/Time October 30, 2024 1:42p m [facility] [address], [address] [place] [address] OFFICE VISIT Date of Service: 10/30/24 MR#: [id number] Acct: [id number] Name: GRANT RUVALCABA Rep #: [id number] : 2000 Provider: SPIKE Begum Age/Sex: 24/F Location: [facility] Status: Signed Intake Vital Signs 09/04/24 15:35 10/18/24 11:39 10/30/24 13:25 Height 5 ft 5 ft 1 in 5 ft 1 in Weight: 183 lb 2 oz BMI 34.6 BP 113/78 Intake Visit Reasons: 26wk ob *25w6d Chief Complaint: 26wk OB Train System Operator Required: No Is patient in pain?: No [...] house number of children: 1 current occupation: [employer] current occupational exposures/hazards: No pets and animals: [...] 1-2 times per week duration: 15-30 minutes/day eveline/orthodox: Anabaptism seatbelt use: always do you feel safe [...] Cosigner Signature: Date (if applicable) CC: ~ [facility] Work Phone: Progress note Author Lynsey Jones [facility] Note Date/Time November 27, 2024 1:33 pm [facility] [address] [place] [address], [address] [place] [address] OFFICE VISIT Date of Service: 11/27/24 MR#: [id number] Acct: [id number] Name: GRANT RUVALCABA Rep #: [id number] : 2000 Provider: Dr. Lela Ambrocio DO Age/Sex: 24/F Location: [facility] Status: Signed Intake Vital Signs 10/30/24 13:25 11/13/24 13:07 11/27/24 13:20 Height 5 ft 1 in 5 ft 1 in 5 ft 1 in Weight: 192 lb BMI 36.2 BP 109/72 Intake Visit Reasons: 30 wk ob Chief Complaint: 30 Week OB Train System Operator Required: No Is patient in pain?: No [...] house number of children: 1 current occupation: [employer] current occupational exposures/hazards: No pets and animals: [...] 1-2 times per week duration: 15-30 minutes/day eveline/orthodox: Anabaptism seatbelt use: always do you feel safe at home: Yes additional social history: : [employer] History 2 Elective abortions Hx Para 1 Spontaneous abortions Hx # Term Pregnancies 1 Ectopic pregnancies Hx # Pregnancies Multiple births # of living children 1 Past Pregnancies Del. Date Name GA/Weeks Outcome Route Bth Weight Infant Gen Labor Lgth Anesthesia Del Locatn Provider FOB 09/23/22 Kate 38 live - full term 7lbs 6oz Male epi dural [facility] Karyan Carr Killian Delivery Date: 09/23/22 Last Updated [...] Woodsignalpesh Signature: Date (if applicable) CC: ~ [facility] Work Phone: Reason for referral (narrative)No reason for referral information [facility] Work Phone: Chief Complaint and Reason for [...] Will No June 25 5:36pm Power of Rotary Filter Operator No June 25, 2020 5:36pm Advance Directive Response Recorded Date/ Time Living Will No June 25 4:36pm Power of Rotary Filter Operator No June 25, 2020 4:36pm Advance Directive Response Recorded Date/ Time Living Will No August 25, 2022 11:54am Power of Rotary Filter Operator No August 25 11:54am Advance Directive Response Recorded Date/ Time Living Will No September 23, 2022 9:11am Power of Rotary Filter Operator No September 23 9:11am Advance Directive Response Recorded Date/ Time Living Will No September 23, 2022 8:11am Power of Rotary Filter Operator No September 23 8:11am Advance Directive Response Recorded Date/ Time Do you have a [facility] Power of Rotary Filter Operator? No October 16, 2024 2:55pm Medications Administered [...] Provider, Refer ring Provider Active Imani Sullivan SEGMENTAL PAVER INSTALLER, SEGMENTAL PAVER INSTALLER-C Attending Provider Active Team Status: Active Member [...] Physician Primary Care Provider Active Imani Sullivan SEGMENTAL PAVER INSTALLER, SEGMENTAL PAVER INSTALLER-C Attending Provider, Referring Provider Active Team Status: [...] Physician Primary Care Provider Active Imani Sullivan SEGMENTAL PAVER INSTALLER, SEGMENTAL PAVER INSTALLER-C Attending Provider, Referring Provider Active Team Status: [...] Physician Primary Care Provider Active Imani Sullivan SEGMENTAL PAVER INSTALLER, SEGMENTAL PAVER INSTALLER-C Attending Provider Active Team Status: Active Member [...] 04, 2024 End: September 04, 2024 Imani Sulliavn NP SEGMENTAL PAVER INSTALLER-C Attending Provider Active Start: September 04, 2024 End: September 04, 2024 Team Status: Inactive Member Role Status Dates No Primary Care Physician Primary Care Provider Active Start: October 02, 2024 End: October 02, 2024 No Primary Care Physician Referring Provider Active Start: October 02, 2024 End: October 02, 2024 Imani Sullivan NP SEGMENTAL PAVER INSTALLER-C Attending Provider Active Start: October 02, 2024 End: October 02, 2024 Team Status: Inactive Member Role Status Dates Dr. Edwin Rome MD Attending Provider Active Sta rt: October 16, 2024 End: October 16, 2024 Dr. Edwin Rome MD Emergency Provider Active Sta rt: October 16, 2024 End: October 16, 2024 Neda Kiester PA, PA-C Primary Care Provider Active Start: October 16, 2024 End: October 16, 2024 Team Status: Inactive Member Role Status Dates Neda Keith PA, PA-C Primary Care Provider Active Start: October 18, 2024 End: October 18, 2024 Nedajoyce Keith PA, PA-C Referring Provider Active Start: October 18, 2024 End: October 18, 2024 Imani Sullivan SEGMENTAL PAVER INSTALLER, SEGMENTAL PAVER INSTALLER-C Attending Provider Active Start: October 18, 2024 End: October 18, 2024 Team Status: Inactive Member Role Status Dates Neda Keith PA, PA-C Primary Care Provider Active Start: October 18, 2024 End: October 18, 2024 Imani Sullivan SEGMENTAL PAVER INSTALLER, SEGMENTAL PAVER INSTALLER-C Attending Provider Active Start: October 18, 2024 End: October 18, 2024 Imani Sullivan SEGMENTAL PAVER INSTALLER, SEGMENTAL PAVER INSTALLER-C Referring Provider Active Start: October 18, 2024 End: October 18, 2024 Team Status: Active Member Role Status Dates Neda Keith PA, PA-C Primary Care Provider Active Start: October 18, 2024 End: October 18, 2024 Dr. Manolo Merritt MD Attending Provider Active Start: October 18, 2024 End: October 18, 2024 Imani Sullivan SEGMENTAL PAVER INSTALLER, SEGMENTAL PAVER INSTALLER-C Referring Provider Active Start: October 18, 2024 [...] November 13, 2024 End: November 13, 2024 Sharir Begum CNM Referring Provider Active S tart: November 13, 2024 End: November 13, 2024 Team Status: Inactive Member Role Status Dates No Primary Care Physician Referring Provider Active Start: November 13, 2024 End: November 13, 2024 Imani Sullivan SEGMENTAL PAVER INSTALLER, SEGMENTAL PAVER INSTALLER-C Attending Provider Active Start: November 13, 2024 [...] 2024 End: September 04, 2024 Imani Sullivan SEGMENTAL PAVER INSTALLER, SEGMENTAL PAVER INSTALLER-C Attending Provider Active Start: September 04, 2024 End: September 04, 2024 Team Status: Inactive Member Role/Relationship Status Dates No Primary Care Physician Primary Care Provider Active Start: October 02, 2024 End: October 02, 2024 No Primary Care Physician Referring Provider Active Start: October 02, 2024 End: October 02, 2024 Imani Sullivan SEGMENTAL PAVER INSTALLER, SEGMENTAL PAVER INSTALLER-C Attending Provider Active Start: October 02, 2024 [...] 2024 End: October 18, 2024 Imani Sullivan SEGMENTAL PAVER INSTALLER, SEGMENTAL PAVER INSTALLER-C Attending Provider Active Start: October 18, 2024 End: October 18, 2024 Team Status: Inactive Member Role/Relationship Status Dates Neda Kiester PA, PA-C Primary Care Provider Active Start: October 18, 2024 End: October 18, 2024 Imani Sullivan SEGMENTAL PAVER INSTALLER, SEGMENTAL PAVER INSTALLER-C Attending Provider Active Start: October 18, 2024 End: October 18, 2024 Imani Sullivan SEGMENTAL PAVER INSTALLER, SEGMENTAL PAVER INSTALLER-C Referring Provider Active Start: October 18, 2024 End: October 18, 2024 Team Status: Active Member Role/Relationship Status Dates Neda Keith PA, PA-C Primary Care Provider Active Start: October 18, 2024 End: October 18, 2024 Dr. Manolo Merritt MD Attending Provider Active Start: October 18, 2024 End: October 18, 2024 Imani Sullivan SEGMENTAL PAVER INSTALLER, SEGMENTAL PAVER INSTALLER-C Referring Provider Active Start: October 18, 2024 [...] 2024 End: November 13, 2024 Imani Sullivan SEGMENTAL PAVER INSTALLER, SEGMENTAL PAVER INSTALLER-C Attending Provider Active Start: November 13, 2024 End: November 13, 2024 Neda Keith PA, PA-C Primary Care Provider Active Start: November 13, 2024 End: November 13, 2024 Team Status: Inactive Member Role/Relationship Status Dates Neda Kiester PA, PA-C Primary Care Provider Active Start: November 27, 2024 End: November 27, 2024 Neda Kiester PA, PA-C Referring Provider Active Start: November [...] 11, 2024 End: December 11, 2024 Neda Kiester PA, PA-C Referring Provider Active Start: December 11, 2024 End: December 11, 2024 Imani Sullivan SEGMENTAL PAVER INSTALLER, SEGMENTAL PAVER INSTALLER-C Attending Provider Active Start: December 11, 2024 End: December 11, 2024 Team Status: Inactive Member Role/Relationship Status Dates Neda Kiester PA, PA-C Primary Care Provider Active Start: [...] 2024 End: October 02, 2024 Imani Sullivan SEGMENTAL PAVER INSTALLER, SEGMENTAL PAVER INSTALLER-C Attending Provider Active Start: October 02, 2024 End: October 02, 2024 Team Status: Inactive Member Role/Relationship Status Dates Dr. Ediwn Rome MD Attending Provider Active Sta rt: [...] 2024 End: October 18, 2024 Imani Sullivan SEGMENTAL PAVER INSTALLER, SEGMENTAL PAVER INSTALLER-C Attending Provider Active Start: October 18, 2024 End: October 18, 2024 Team Status: Inactive Member Role/Relationship Status Dates Neda Keith PA, PA-C Primary Care Provider Active Start: October 18, 2024 End: October 18, 2024 Imani Sullivan SEGMENTAL PAVER INSTALLER, SEGMENTAL PAVER INSTALLER-C Attending Provider Active Start: October 18, 2024 End: October 18, 2024 Imani Sullivan SEGMENTAL PAVER INSTALLER, SEGMENTAL PAVER INSTALLER-C Referring Provider Active Start: October 18, 2024 End: October 18, 2024 Team Status: Active Member Role/Relationship Status Dates Neda Keith PA, PA-C Primary Care Provider Active Start: October 18, 2024 End: October 18, 2024 Dr. Manolo Merritt MD Attending Provider Active Start: October 18, 2024 End: October 18, 2024 Imani Sullivan SEGMENTAL PAVER INSTALLER, SEGMENTAL PAVER INSTALLER-C Referring Provider Active Start: October 18, 2024 [...] 2024 End: November 13, 2024 Imani Sullivan SEGMENTAL PAVER INSTALLER, SEGMENTAL PAVER INSTALLER-C Attending Provider Active Start: November 13, 2024 [...] 2024 End: December 11, 2024 Imani Sullivan SEGMENTAL PAVER INSTALLER, SEGMENTAL PAVER INSTALLER-C Attending Provider Active Start: December 11, 2024 End: December 11, 2024 Team Status: Inactive Member Role/Relationship Status Dates Neda Keith PA, PA-C Primary Care Provider Active Start: December 25, 2024 End: December 25, 2024 Neda Keith PA, PA-C Referring Provider [...] or prosecute any alcohol or drug abuse patient.[facility] Reason for Visit (unrecogniz ed section and content) Reason Comments Comprehensive Eye Exam INFORMATION SOURCE (unrecogn ized section and content) DATE CREATED AUTHOR 02/16/2023 [facility] DATE CREATED AUTHOR AUTHOR'S ORGANIZ ATION 07/01/2023 [facility] DATE CREATED AUTHOR AUTHOR'S ORGANIZ ATION 02/16/2024 [facility] DATE CREATED AUTHOR AUTHOR'S ORGANIZ ATION 01/05/2025 [facility] DATE CREATED AUTHOR AUTHOR'S ORGANIZ ATION 01/11/2025 [facility] FOR RECORDS PERTAINING TO PATIENTS WHO ARE [...] BE BASED ON THE PRIMARY CLINICAL RECORDS. [facility]. provides no warranty or guarantee of the accuracy or completeness of information in this document.
[2025-01-17 04:07] LABS: Hematocrit 33.3 % (37-47); Hemoglobin 11.3 g/dL (12.0-15.0); Immature Granulocytes Count 0.080 X10^3/uL (0.0-0.0); Mean Corp Hgb Conc 33.9 g/dL (32-36); Mean Corpuscular Volume 94.3 fL (81-99); Mean Platelet Vol. 11.9 fl (6.2-12.0); NRBC Flagged by Analyzer 0 % (0-5); Platelet Count 222 K/mm3 (150-450); RBC Distribution Width CV 13.6 % (11.6-14.6); RBC Distribution Width SD 46.4 fl (35.1-43.9); Red Blood Count 3.53 M/mm3 (4.2-5.4); White Blood Count 17.0 K/mm3 (4.4-11.0)
[2025-01-17] MEDS: Cefazolin 1 GM/5 ML Vial 2 GM IV (04:28)
[2025-01-17] MEDS: fentaNYL 100 MCG/2 ML Ampul EPIDURAL (04:36)
[2025-01-17] MEDS: Lidocaine 2% (5ml sdv) 5 ML VIAL.MPF 20 ML EPIDURAL (04:37)
[2025-01-17] MEDS: Midazolam 2 MG/2 ML Syringe IV (04:41)
[2025-01-17] MEDS: TRANEXAMIC ACID 1,000 MG/10 ML ML 1000 MG IV (04:58)
[2025-01-17 04:59] LABS: Syphilis Antibodies Nonreactive (Nonreactive)
[2025-01-17] MEDS: Azithromycin 500 MG in 0.9% Normal Saline (250mL Bag) 250 ML 250 MG IV (05:00)
[2025-01-17] MEDS: Azithromycin 500 MG Vial (SNAP) IV (05:00)
--- NOTE | 2025-01-17 05:12 | HP.PCM.OB_ITS ---
HPI - General General Date of Admission: 01/17/25 HPI Narrative GRANT RUVALCABA, is a 24 y/o @ 37 weeks 1 day who presents to labor and delivery with painful contractions. The nurse called me for an ELLEN due to the heart tones in the 70s that were fluctuating between 70 and 100 for about 7 minutes. Upon arrival the heart rate was in the 120s to 130s with moderate variability. The decision was made to wait for her platelets to return and set her up for an epidural back in the operating room while we watch the tracing. For the next 20 to 30 minutes the heart rate showed 2 late decelerations however most of the tracing showed a moderate variability tracing without decelerations. Her uterus was evette every 30 seconds and terbutaline was given she did report diffuse abdominal tenderness upon exam. Once the labs were back and the epidural was placed she consented to membrane rupture upon rupture of her membranes port wine blood was noted and the diagnosis of placental abruption was made decision was made to proceed with a C- section. Maternal Data Information GEORGI Calculator Estimated Delivery Date Method Current WG Current Estimate 02/06/25 LMP (Certain) 37w 1d Other Estimates 02/05/25 [facility]trasound [facility]1 37w 2d [facility] Medical History History of asthma Fatigue normal course Vaginal delivery Depression Contact with and (suspected) exposure to other viral communicable diseases Sinusitis Fibromyalgia Back pain Severe headache Home Medications ?Medication ?Instructions ?Recorded ?Last Taken ?Type ferrous sulfate 140 mg (45 mg 140 mg PO DAILY 03/04/22 12/05/24 History iron) tablet,extended release cholecalciferol (vitamin D3) 25 25 mcg PO QDAY 4 12/05/24 History mcg (1,000 unit) capsule docosahexaenoic acid 200 mg mg PO 06/22/24 12/05/24 Hi story capsule ( DHA) sertraline 50 mg tablet (Zoloft) 50 mg PO DAILY #90 ta bs 09/04/24 12/05/24 Rx Allergy/AdvReac Type Severity Reaction Status Date / Time No Known Allergies Allergy Verified 01/16/25 13:43 Family History Grandmother Breast cancer Paternal Aunt Breast cancer Other Migraines Social History adopted: No household members: spouse and children housing: house number of children: 1 current occupation: [employer] current occupational exposures/hazards: No pets and animals: Yes pets and animals: dog(s) history of recent travel: No sexually active: Yes Smoking Status: Never smoker alcohol intake: current alcohol intake frequency: holidays/special occasions only details: Not while substance use type: does not use well-balanced diet: daily or most days caffeine: Yes Type: coffee eating out: rarely or never during the past year weight has: remained stable what type of physical activity do you participate in: walking frequency: 1-2 times per week duration: 15-30 minutes/day eveline/roman catholic: Uats[employer] seatbelt use: always do you feel safe at home: Yes additional social history: : [employer] History 2 Elective abortions Hx Para 1 Spontaneous abortions Hx # Term Pregnancies 1 Ectopic pregnancies Hx # Pregnancies Multiple births # of living children 1 Past Pregnancies Del. Date Name GA/Weeks Outcome Route Bth Weight Infant Gen Labor Lgth Anesthesia Del Locatn Provider FOB 09/23/22 Kate 38 live - full term 7lbs 6oz Male epi dural WC Karyna Magaly Killian Delivery Date: 09/23/22 Last Updated by: Jenna Ahmadi SM IAL SROM boy kate Visit Details Expected Delivery Route/Plan Labor Preferences- CB/BF classes: no labor support person: Killian labor intervention preferences: [] pain management options preferred: epidural if requested cut cord/dad catch: cord : no PP control planned: discussed discussed possible routes of delivery and associated risks: [] special requests: [] Plans Covid status: [] Flu vaccine: [] Tdap vaccine: [] Rhogam: NA LARC form signed: yes Problem list reviewed and updated with the most current plan of care details and appropriate orders placed. Relevant counseling for the gestational age provided. Continue routine care and follow up unless otherwise noted in visit notes/problem list details OB Flowsheet Initial Weight: 171 lb Date -?-?-?-?-?-?-?-?-?-?-?-?- EGA Weight BP Urine Prot -?-?-?-?-?-?-?-?-?-?-?-?- Glucose FHR FuHt Pres Dilation -?-?-?-?-?-?-?-?-?-?-?-?- Effaced St Visit Note 07/06/24 -?-?-?-?-?-?-?-?-?-?-?-?- 9w 2d 171 lb (+0 oz) 115/78 -?-?-?-?-?-?-?-?-?-?-?-?- 168 -?-?-?-?-?-?-?-?-?-?-?-?- KW- CRL cons wit h dates. accepts NIPT. 08/07/24 -?-?-?-?-?-?-?-?-?-?-?-?- 13w 6d 168 lb 6 oz (-2 lb 10 oz) 123/82 Negative -?-?-?-?-?-?-?-?-?-?-?-?- Negative 160 -?-?-?-?-?-?-?-?-?-?-?-?- SM- no vb lof so me nausea 09/04/24 -?-?-?-?-?-?-?-?-?-?-?-?- 17w 6d 171 lb 8 oz (+8 oz) 113/79 Negative -?-?-?-?-?-?-?-?-?-?-?-?- Negative 145 -?-?-?-?-?-?-?-?-?-?-?-?- -No VB. Nausea resolved. PCP increased her to 50mg zoloft and needs refill/sent. 10/02/24 -?-?-?-?-?-?-?-?-?-?-?-?- 21w 6d 175 lb 2 oz (+4 lb 2 oz) 110/72 Negative -?-?-?-?-?-?-?-?-?-?-?-?- Negative 146 -?-?-?-?-?-?-?-?-?-?-?-?- -No VB, LOF. G ood FM. 28 wk US w MFM scheduled 10/18/24 -?-?-?-?-?-?-?-?-?-?-?-?- 24w 1d 180 lb 8 oz (+9 lb 8 oz) 118/81 Trace -?-?-?-?-?-?-?-?-?-?-?-?- Negative 153 -?-?-?-?-?-?-?-?-?-?-?-?- -work in ED fo llow up: good FM. Cont with headache, dizziness, chest pain and SOB. Normal CBC, CMP. Very frustrated with ED visit and still not feeling well. Will get stat EKG and CXR today 10/30/24 -?-?-?-?-?-?-?-?-?-?-?-?- 25w 6d 183 lb 2 oz (+12 lb 2 oz) 113/78 Negative -?-?-?-?-?-?-?-?-?-?-?-?- Negative 150 25 -?-?-?-?-?-?-?-?-?-?-?-?- KW- no vb/lof/ct x. good fm. glucose next visit. 11/13/24 -?-?-?-?-?-?-?-?-?-?-?-?- 27w 6d 185 lb 4 oz (+14 lb 4 oz) 112/78 Negative -?-?-?-?-?-?-?-?-?-?-?-?- Negative 143 28 -?-?-?-?-?-?-?-?-?-?-?-?- -No VB, LOF. G ood FM. Larc. 28 wk labs pending 11/27/24 -?-?-?-?-?-?-?-?-?-?-?-?- 29w 6d 192 lb (+21 lb) 109/72 Negative -?-?-?-?-?-?-?-?-?-?-?-?- Negative 145 29 -?-?-?-?-?-?-?-?-?-?-?-?- JV- no lof, vagi nal bleeding, or dec fm. no complaints other than a sharp left lower side pain x1 over the weekend. declines tdap. 12/11/24 -?-?-?-?-?-?-?-?-?-?-?-?- 31w 6d 192 lb 4 oz (+21 lb 4 oz) 118/86 Trace -?-?-?-?-?-?-?-?-?-?-?-?- Negative 150 31 -?-?-?-?-?-?-?-?-?-?-?-?- MH-No Vb, LOF. G ood FM. Minimal fluids today/enc increase patrick with heat. 12/25/24 -?-?-?-?-?-?-?-?-?-?-?-?- 33w 6d 198 lb (+27 lb) 120/83 Negative -?-?-?-?-?-?-?-?-?-?-?-?- Negative 143 31 -?-?-?-?-?-?-?-?-?-?-?-?- JV- growth scan ordered for SGA. starting to have BH contractions. 01/07/25 -?-?-?-?-?-?-?-?-?-?-?-?- 35w 5d 203 lb 2 oz (+32 lb 2 oz) 112/81 -?-?-?-?-?-?-?-?-?-?-?-?- 140 34 Cephalic 2 -?-?-?-?-?-?-?-?-?-?-?-?- 50 -2 KW- no vb/ lof/reg ctx. good fm. GBS today KW- no vb/lof/reg ctx. good fm. GBS today. growth scan was done last tu with MFM and pt said EFW was 6lbs 01/16/25 -?-?-?-?-?-?-?-?-?-?-?-?- 37w 0d 210 lb (+39 lb) 125/90 Negative -?-?-?-?-?-?-?-?-?-?-?-?- Negative 140 37 Cephalic 3 -?-?-?-?-?-?-?-?-?-?-?-?- 60 -2 KW- no vb/ lof/Ctx q 2-8 minutes-that started this am. stronger over the last hour. good fm. labor precautions reviewed ROS Constitutional Constitutional: Denies change in weight, fatigue, fever(s), headache(s), poor appetite or weakness Eyes Eyes: Denies blurry vision, change in vision, seeing flashes or spots in vision ENT HEENT: Denies dizziness, headache(s), loss taste/smell or sore throat Cardiovascular Cardiovascular: Denies chest pain, dizziness, dyspnea, irregular heart rhythm, leg edema, palpitations, rapid heart rate or vomiting Respiratory/Chest Respiratory/Chest: Denies chest tightness, cough, dyspnea or breast pain Gastrointestinal Gastrointestinal: Denies abdominal pain, anorexia, constipation, cramping, diarrhea, hemorrhoids, vomiting or weight changes Genitourinary Genitourinary: Denies dysuria, flank pain, genital lesions, genital pain, urinary frequency or urinary urgency Musculoskeletal Musculoskeletal: Denies back pain, difficulty walking, joint pain, limited range of motion, muscle cramps or numbness Integumentary Integumentary: Denies lesions or unusual bruising Neurologic Neurologic: Denies abnormal movements, abnormal speech, dizziness, numbness, seizure-like activity or syncope Psychiatric Psychiatric: Denies anxiety, behavioral changes, change in appetite, change in libido, cognitive impairment, confusion, depression, difficulty concentrating, hallucinations or suicidal thoughts Endocrine Endocrinology: Denies excessive sweating, polydipsia or polyuria Hematologic/Lymphatic Hematologic/Lymphatic: Denies easy bleeding, easy bruising or lymphadenopathy Allergic/Immunologic Allergic/Immunologic: Denies itchy eyes, lip swelling, seasonal rhinorrhea, rhinitis, throat swelling, tongue swelling, eczemia, wheezing or asthma Vital Signs Vital Signs Vital Signs: Weight Weight: 210 lb Body Mass Index (BMI) 39.6 Physical Exam Const alert, oriented x3, no apparent distress and healthy appearing General Appearance: cooperative; Negative for anxious HEENT normocephalic Face and Sinus: normal facial exam Eyes EOMs intact bilaterally and no scleral icterus General Eye: normal appearance of both eyes Neck full ROM and supple Lymph Lymphatic: no lymphadenopathy noted Resp normal respiratory effort Effort and Inspection: able to speak in complete sentences Cardio regular rate GI GI Narrative: abdomen is diffusely tender Inspection: gravid external exam normal Narrative: cx was 4/70/-2 , membranes ruptured immediately after epidural was placed and was port wine blood. decision for was made. Back/Spine no CVA tenderness Extremity normal to inspection, full ROM and no clubbing, cyanosis or edema General Extremity: Negative for calf tenderness or edema Skin Lesions: no lesions Rashes: no rashes Psych mental status grossly normal Labs Labs Labs: Blood Type O POSITIVE Antibody Screen NEGATIVE Hct 33.3 % (37-47) L Hgb 11.3 g/dL (12.0-15.0) L Syphilis Total Ab Nonreactive (Nonreactive) Rubella IgG Antibody Reactive (Nonreactive) Hep Bs Antigen Non-Reactive (Nonreactive) Hepatitis C Antibody Non-Reactive (Nonreactive) Chlamydia DNA (SHANITA) Negative (Negative) N.gonorrhoeae DNA (SHANITA) Negative (Negative) HIV 1&2 Antibody Nonreactive (Nonreactive) Glucose 1 Hr 50 gm 95 mg/dL (70-140) Rhogam given: No Miscellaneous Test Assessment & Plan (1) Placental abruption: (2) SGA (small for gestational age), , affecting care of mother, antepartum: (3) Trauma during : (4) Headache in : QUALIFIERS: Trimester: second trimester Qualified Code(s): O26.892 - Other specified related conditions, second trimester; R51.9 - Headache, unspecified COMMENT: improved (5) SOB (shortness of breath): COMMENT: improved (6) Obesity affecting : QUALIFIERS: Trimester: second trimester Obesity type affecting : unspecified obesity Qualified Code(s): O99.212 - Obesity complicating , second trimester COMMENT: BMI 30.3; HgBA1C w/NOB (7) Supervision of high-risk : QUALIFIERS: Trimester: third trimester Qualified Code(s): O09.93 - Supervision of high risk , unspecified, third trimester COMMENT: PRR, , GEROGI 02/06/25,girl Fatimah PC: Kate, : [place] (8) : QUALIFIERS: Weeks of gestation: 37 weeks Qualified Code(s): Z3A.37 - 37 weeks gestation of COMMENT: GBS neg, (Carrier testing done in prior ), baby low risk, gender female (9) Anxiety: (10) Depression: QUALIFIERS: Depression Type: unspecified Qualified Code(s): F32.A - Depression, unspecified COMMENT: Mckayla/celso (11) 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al: COMMENT: +02/2022. 12/2022 neg pap and HPV; 2023: neg pap and HPV
[2025-01-17] MEDS: morphine PF 10 MG/10 ML Ampul 3 MG EPIDURAL (05:16)
[2025-01-17 05:35] LABS: Prothrombin Time (Protime)PT. 13.8 SECONDS (11.7-14.9)
[2025-01-17 05:41] LABS: Fibrinogen 450 mg/dl (203-444); Partial Thromboplast Time 24.9 Seconds (24.1-36.2)
--- OUTSIDE RECORDS SUMMARY | 2025-01-17 05:46 | XMS RPT_ITS | CCD ---
Author Organization [facility] CliniSymt Care Team Providers Care Glass Mechanic Name Role Phone Care Physician, No Primary [...] Karyna Carr Attending Provider [phone] Laurie EXECUTIVE CASINO HOST, EXECUTIVE CASINO HOST-C Imani Attending Provider [phone] Dr. Karyna [...] Un available AUGUSTINE Breen Attending Provider Laurie EXECUTIVE CASINO HOST, EXECUTIVE CASINO HOST-C Imani Attending Provider [phone] CSERNYIK, YUDY DO Attending Unavailable CSERNYIK, YUDY DO Primary Care Unavailable CSERNYIK, YUDY DO Admitting Unavailable ALMAZ GORDON Attending Unavailable CHAVA EL Attending Unavailable Care Physician, No Primary Primary Care Provider Unavailable Care Physician, No Primary Referring Provider Un available Sharri Begum CNM Attending Provider [phone] Sharri Begum CNM Referring Provider [phone] Dr. Karyna Carr MD Attending Provider [place] EXECUTIVE CASINO HOST-C, Imani Attending Provider Wild OROURKE, Dr. Pineda Attending Provider Wild OROURKE, Dr. Pineda Emergency Provider [place] PA-C, [place] Primary Care Provider [place] PA-C, Neda Referring Provider [place] EXECUTIVE CASINO HOST-C, Imani Referring Provider Dr. Manolo Merritt MD Attending Provider Care Physician, No Primary Primary Care Provider Unavailable Care Physician, No Primary Referring Provider Un available Sharri Begum CNM Attending Provider [phone] Sharri Begum CNM Referring Provider [phone] Dr. Lynsey Ambrocio DO Attending Provider Dr. Lynsey Ambrocio DO Referring Provider Care Physician, No Primary Primary Care Provider Unavailable Care Physician, No Primary Referring Provider Un available Dr. Lynsey Ambrocio DO Other Provider [phone] LYNSEY PATTERSON Attending Unavailable LYNSEY PEREIRA Referring Unavailab le [place] NEDA Zahraa Primary Care Unavailable [place] [facility] Primary Care Unavailable KARYNA CARR Referring Unavailabl e SAMI DOWNEY Attending Unavailable [place] [facility] Primary Care Unavailable KARYNA CARR Referring Unavailabl e ALICIA STEWART Attending Unavailable Care Physician, No Primary Primary Care Provider Unavailable Care Physician, No Primary Referring Provider Un available [place] EXECUTIVE CASINO HOST-C, Imani Attending Provider Sharri Begum Referring Unavailable Sharri Begum Attending Unavailable [place] PA, Neda Primary Care Unavailable Sharri Begum Attending Unavailable [facility], [place] Primary Care Unavailable Lynsey Ambrocio Attending Unavailabl e [place] PA [place] Primary Care Unavailable Lynsey Ambrocio Referring Unavailabl e Laurei EXECUTIVE CASINO HOST, Imani Attending Unavailable Laurie EXECUTIVE CASINO HOST, Imani Referring Unavailable [place] PA, Neda Primary Care Unavailable Care Physician, No Primary Primary Care Unava ilable Sharri Begum Attending Unavailable Sharri Begum Referring Unavailable Edwin Rome Attending Unavailable [place] PA, Neda Primary Care Unavailable Care Physician, No Primary Primary Care Unava ilable Sharri Begum Referring Unavailable Sharri Begum Attending Unavailable Care Physician, No Primary Primary Care Unava ilable [place] EXECUTIVE CASINO HOST, Imani Referring Unavailable [place] EXECUTIVE CASINO HOST, Imani Attending Unavailable Laurie EXECUTIVE CASINO HOST, Imani Attending Unavailable [place] PA, [place] Primary Care Unavailable [place] PA, Neda Referring Unavailable Sharri Begum Attending Unavailable [place] PA, Neda Referring Unavailable [place], [place] Primary Care Unavailable Care Physician, No Primary Referring Unava ilable Sharri Begum Attending Unavailable [place] PA, [place] Primary Care Unavailable Care Physician, No Primary Primary Care Unava ilable Care Physician, No Primary Referring Unava ilable Laurie EXECUTIVE CASINO HOST, Imani Attending Unavailable [place] PA, Neda Referring Unavailable [place] EXECUTIVE CASINO HOST, Imani Attending Unavailable [place], [place] Primary Care Unavailable Annette Real Attending Unavailable Care Physician, No Primary Primary Care Unava ilable Sharri Begum Attending Unavailable [place] PA, Neda Referring Unavailable [place], [place] Primary Care Unavailable Manolo Merritt Attending Unavailable Laurie EXECUTIVE CASINO HOST, Imani Referring Unavailable [place] PA, [place] Primary Care Unavailable Lynsey Ambrocio Consulting Unavailabl e [place] PA, [place] Primary Care Unavailable Lynsey Ambrocio Referring Unavailabl e Lynsey Ambrocio Attending Unavailabl e Care Physician, No Primary Primary Care Unava ilable Care Physician, No Primary Referring Unava ilable Karyna Carr Attending Unavailable Care Physician, No Primary Primary Care Unava ilable Care Physician, No Primary Referring Unava ilable Laurie EXECUTIVE CASINO HOST, Imani Attending Unavailable Care Physician, No Primary Primary Care Unava ilable Sharri Begum Attending Unavailable Care Physician, No Primary Referring Unava ilable Care Physician, No Primary Primary Care Unava ilable Care Physician, No Primary Referring Unava ilable [place] EXECUTIVE CASINO HOST, Imani Attending Unavailable Care Physician, No Primary Primary Care Unava ilable Care Physician, No Primary Referring Unava ilable Laurie EXECUTIVE CASINO HOST, Imani Attending Unavailable [place] PA, Neda Referring Unavailable [place] PA, Neda Primary Care Unavailable Lynsey Ambrocio Attending Unavailabl e Care Physician, No Primary Referring Unava ilable [place] EXECUTIVE CASINO HOST, Imani Attending Unavailable [place] PA, Neda Primary Care Unavailable Lynsey Ambrocio [facility]ending [facility] Kim Referring Unavailable [place] Neda BRADSHAW Primary [facility] Unavailable Medications Current Medications Medication Drug Class(es) [...] 20 mg/ml oral solution (12 sources) Uncompetitive P-wyflcs-[place]-aspartat e Receptor Antagonist, Sigma-1 Agonist Start: 03-01-2023 [...] / neomycin 3.5 mg/ml / polymyxin b [id number] unt/ml otic suspension (12 sources) Aminoglycoside Antibacterial, Polymyxin-class Antibacterial, Corticosteroid Start: 01-20-2023 End: 01-30-2023 Shxxbkwk-Dxvafcbfd-Ks 3.5-10,000-1 mg/mL-unit/mL-% drops,suspension Discontinued 3 NMA OTIC THREE TIMES A DAY 10 10 0 January 20, 2023 12:00am January 29, 2023 12:00am January 30, 2023 12:03am apply to right ear Start: 01-20-2023 End: 01-30-2023 Vbrqyzlc-Fzqruivue-Sw Discon tinued 3 DRP OTIC THREE TIMES [...] B Beta Streptococcus is not isolated. Normal [facility] Comment on above: Performed By: #### M 100.0150 ####[facility] [address] [place], [place], [id number] Banbury Mixer Operator Office Visit Reporton 01-07-2025 Banbury Mixer Operator Office Visit Report [facility] [address], [address] [place] [address] OFFICE VISIT Date of Service: 01/07/25 MR#: [id number] Acct: [id number] Name: GRANT RUVALCABA Rep #: [id number] : 2000 Provider: SPIKE Adams ams Age/Sex: 24/F Location: [facility] Status: Signed Intake Vital Signs 11/13/24 13:07 12/25/24 13:55 01/07/25 14:27 Height 5 ft 1 in 5 ft 1 in 5 ft 1 in Weight: 198 lb 203 lb 2 oz BMI 37.4 38.3 BP 120/83 H 112/81 H Intake Visit Reasons: 36 wk ob Chief Complaint: 36wk OB Gun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 Feeder Required: No Is patient in pain?: No [...] house number of children: 1 current occupation: [employer] current occupational exposures/hazards: No pets and [...] 1-2 times per week duration: 15-30 minutes/day eveline/sabianism: Moravian seatbelt use: always do you feel safe at home: Yes additional social history: : [employer] History 2 Elective abortions Hx Para 1 Spontaneous abortions Hx # Term Pregnancies 1 Ectopic pregnancies Hx # Pregnancies Multiple births # of living children 1 Past Pregnancies Del. Date Name GA/Weeks Outcome Route Bth Weight Infant Gen Labor Lgth Anesthesia Del Locatn Provider FOB 09/23/22 Kate 38 live - full term 7lbs 6oz Male epidural [facility] S katia Carr Killian Delivery Date: [...] -???-???-???-???-???-?? ?-???-???-? (more content not included)... Normal [facility] Screening beta-hemolytic Str eptococcus cultureOrdered By: Sharri Begum on 01-07-2025 Beta-hemolytic Streptococcus culture Group B Beta Streptococcus is not isolated. [facility] Laboratory - Chemistry and C hemistry - challengeOrdered By: Lynsey Jones on 12-25-2024 Glucose Ql (U) Negative [facility] Laboratory - UrinalysisOrder ed By: Lynsey Jones on 12-25-2024 Protein Ql (U) Negative [facility] Banbury Mixer Operator Office Visit Reporton 12-25-2024 Banbury Mixer Operator Office Visit Report [facility] [address], [address] [place] [address] OFFICE VISIT Date of Service: 12/25/24 MR#: [id number] Acct: [id number] Name: GRANT RUVALCABA Rep #: [id number] : 2000 Provider: Dr. Lynsey Nails DO Age/Sex: 24/F Location: [facility] Status: Signed Intake Vital Signs 10/30/24 13:25 12/11/24 13:38 12/25/24 13:55 Height 5 ft 1 in 5 ft 1 in 5 ft 1 in Weight: 198 lb BMI 37.4 BP 120/83 H Intake Visit Reasons: 34 wk ob Chief Complaint: 34wk OB Gun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 Feeder Required: No Is patient in pain?: No [...] house number of children: 1 current occupation: [employer] current occupational exposures/hazards: No pets and [...] 1-2 times per week duration: 15-30 minutes/day eveline/sabianism: Moravian seatbelt use: always do you feel safe [...] - full term 7lbs 6oz Male epidural [facility] S katia Carr Killian Delivery Date: [...] ?-???-???-???-???-???-? ??- (more content not included)... Normal [facility] Laboratory - Chemistry and C hemistry - challengeOrdered By: Imani Sullivan on 12-11-2024 Glucose Ql (U) Negative [facility] Laboratory - UrinalysisOrder ed By: Imani Sullivan on 12-11-2024 Protein Ql (U) Trace [facility] Banbury Mixer Operator Office Visit Reporton 12-11-2024 Banbury Mixer Operator Office Visit Report [facility] [address], [address] [place] [address] OFFICE VISIT Date of Service: 12/11/24 MR#: [id number] Acct: [id number] Name: GRANT RUVALCABA Rep #: [id number] : 2000 Provider: EXECUTIVE CASINO HOSTKelsey presley Age/Sex: 24/F Location: [facility] Status: Signed Intake Vital Signs 10/30/24 13:25 12/05/24 22:00 12/11/24 13:38 Height 5 ft 1 in 5 ft 1 in 5 ft 1 in Weight: 192 lb 4 oz BMI 36.3 BP 118/86 H Intake Visit Reasons: 32 wk ob Chief Complaint: 32 Week OB Gun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 Feeder Required: No Is patient in pain?: No [...] house number of children: 1 current occupation: [employer] current occupational exposures/hazards: No pets and [...] 1-2 times per week duration: 15-30 minutes/day eveline/sabianism: Moravian seatbelt use: always do you feel safe [...] - full term 7lbs 6oz Male epidural [facility] S katia Carr Killian Delivery Date: [...] 123/82 Negat (more content not included)... Normal [facility] Bilirubin Test strip Ql (U)O rdered By: Lynsey Jones on 12-05-2024 Bilirubin Ql (U) Negative Negative [facility] Ketones Test strip Ql (U)Ord ered By: Lynsey Jones on 12-05-2024 Ketones Ql (U) Negative Negative [facility] OB Triage Physician Noteon 0 12-05-2024 OB Triage Physician Note [facility] Medical Records Department [address] [place] [address] OB Triage Physician Note 12/05/24 2304 MR#: [id number] Acct: [id number] Name: GRANT RUVALCABA Rep #: [id number] : 2000 24 From: Lynsey Ambrocio DO PCP: Neda Keith PA-C Status:DEP CLI Y Location: [facility] - General General Date of Admission: [...] house number of children: 1 current occupation: [employer] current occupational exposures/hazards: No pets and [...] 1-2 times per week duration: 15-30 minutes/day eveline/sabianism: Moravian seatbelt use: always do you feel safe [...] - full term 7lbs 6oz Male epidural [facility] S katia Carr Killian Delivery Date: [...] lo f (more content not included)... Normal [facility] Protein Test strip Ql (U)Ord ered By: Lynsey Jones on 12-05-2024 Protein Ql (U) Negative Negative [facility] Urinalysis, Routine (Dipstic k)on 12-05-2024 BILIRUBIN URINE Negative Normal Negative [facility] Comment on above: Order Comment: FLAQUITO MILLER TO SPECIFY Performed By: #### L 400.2010 ####[facility] [address] [place], [address] GLUCOSE, UR Normal Normal Normal [facility] Comment on above: Order Comment: FLAQUITO MILLER TO SPECIFY Performed By: #### L 400.2010 ####[facility] [address] [place], [address] KETONE UR Negative Normal Negative [facility] Comment on above: Order Comment: COLLE CTOR TO SPECIFY Performed By: #### L 400.2010 ####[facility] [address] [place], [address] LEUK ESTERASE 100 /ul Abnormal Negative [facility] Comment on above: Order Comment: COLLE CTOR TO SPECIFY Performed By: #### L 400.2010 ####[facility] [address] [place], [address] OCCULT BLOOD-UR Negative Normal Negative [facility] Comment on above: Order Comment: FLAQUITO CTOR TO SPECIFY Performed By: #### L 400.2010 ####[facility] [address] [place], [address] pH UR 6.5 Normal 5.0 - 8.0 [facility] Comment on above: Order Comment: FLAQUITO CTOR TO SPECIFY Performed By: #### L 400.2010 ####[facility] [address] [place], [address] PROT DIPSTX Negative Normal Negative [facility] Comment on above: Order Comment: FLAQUITO CTOR TO SPECIFY Performed By: #### L 400.2010 ####[facility] [address] [place], [address] SP.GR. DIPSTX 1.010 Normal 1.002-1.030 [facility] Comment on above: Order Comment: FLAQUITO CTOR TO SPECIFY Performed By: #### L 400.2010 ####[facility] [address] [place], [address] UROBILI Normal Normal Normal [facility] Comment on above: Order Comment: FLAQUITO CTOR TO SPECIFY Performed By: #### L 400.2010 ####[facility] [address] [place], [address] Urine clarityOrdered By: Christina Jones on 12-05-2024 Clarity (U) Clear Clear [facility] Comment on above: Order Comment: FLAQUITO LEEOR TO SPECIFY Performed By: #### L 400.2010 ####[facility] [address] [place], [place], [id number] Urine color determinationOrd ered By: Lynsey Jones on 12-05-2024 Color (U) Yellow Yellow [facility] Comment on above: Order Comment: FLAQUITO LEEOR TO SPECIFY Performed By: #### L 400.2010 ####[facility] [address] [place], [place], [id number] Urine glucose detectionOrder ed By: Lynsey Jones on 12-05-2024 Glucose Ql (U) Normal mg/dl Normal [facility] Urine leukocyte esterase det ection by dipstickOrdered By: Lynsey Jones on 12-05-2024 Leukocyte esterase Test strip Ql (U) 100 /ul High Negative [facility] Urine nitrite test by dipsti ckOrdered By: Lynsey Jones on 12-05-2024 Nitrite Ql (U) Negative Negative [facility] Comment on above: Order Comment: FLAQUITO LEEOR TO SPECIFY Performed By: #### L 400.2010 ####[facility] [address] [place], [place], [id number] Urine pHOrdered By: Lynsey Jones on 12-05-2024 pH (U) 6.5 [pH] 5.0 - 8.0 [facility] Urine specific gravity measu rementOrdered By: Lynsey Jones on 12-05-2024 Specific gravity (U) [Rel density] 1.010 1.002-1.030 [facility] Urine urobilinogen measureme ntOrdered By: Lynsey Jones on 12-05-2024 Urobilinogen Ql (U) Normal mg/dl Normal [facility] Laboratory - Chemistry and C hemistry - challengeOrdered By: Lynsey Jones on 11-27-2024 Glucose Ql (U) Negative [facility] Laboratory - UrinalysisOrder ed By: Lynsey Jones on 11-27-2024 Protein Ql (U) Negative [facility] Banbury Mixer Operator Office Visit Reporton 11-27-2024 Banbury Mixer Operator Office Visit Report [facility]'s [address], [address] [place] [address] OFFICE VISIT Date of Service: 11/27/24 MR#: [id number] Acct: [id number] Name: GRANT RUVALCABA Rep #: [id number] : 2000 Provider: Dr. Lynsey Nails DO Age/Sex: 24/F Location: [facility] Status: Signed Intake Vital Signs 10/30/24 13:25 11/13/24 13:07 11/27/24 13:20 Height 5 ft 1 in 5 ft 1 in 5 ft 1 in Weight: 192 lb BMI 36.2 BP 109/72 Intake Visit Reasons: 30 wk ob Chief Complaint: 30 Week OB Gun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 Feeder Required: No Is patient in pain?: No [...] house number of children: 1 current occupation: [employer] current occupational exposures/hazards: No pets and [...] 1-2 times per week duration: 15-30 minutes/day eveline/sabianism: Moravian seatbelt use: always do you feel safe [...] - full term 7lbs 6oz Male epidural [facility] Piercechris Killian Delivery Date: 09/23/22 Last Updated [...] 123/82 Neg (more content not included)... Normal [facility] Absolute lymphocyte countOrd ered By: Sharri Begum on 11-13-2024 Lymphocytes Auto (Unsp spec) [#/Vol] 1.33 10*3/uL 0.83-4.51 [facility] Absolute neutrophil countOrd ered By: Sharri Begum on 11-13-2024 Neutrophils (Bld) [#/Vol] 7.9 10*3/uL High 2.0-7.7 [facility] Automated lymphocyte count a s percentage of total leukocytesOrdered By: Sharri Begum on 11-13-2024 Lymphocytes/100 WBC Auto (Unsp spec) 12.8 % Low 19-41 [facility] Basophil percentageOrdered B y: Sharri Begum on 11-13-2024 Basophils/100 WBC (Bld) 0.2 % 0-1 [facility] CBC W/Diff, Automatedon Absolute Lymph 1.33 X10 3/uL Normal 0.83-4.51 [facility] Comment on above: Performed By: #### L 3890.6006, L100.0100, L501.0250, L509.8002 ####[facility] [address] [place], [address] Absolute Neut 7.9 X10 3/uL High 2.0-7.7 [facility] Comment on above: Performed By: #### L 3890.6006, L100.0100, L501.0250, L509.8002 ####[facility] [address] [place], [address] Basophils/100 WBC (Bld) 0.2 % Normal 0-1 [facility] Comment on above: Performed By: #### L 3890.6006, L100.0100, L501.0250, L509.8002 ####[facility] [address] [place], [address] Eosinophils/100 WBC (Bld) 1.9 % Normal 0-5 [facility] Comment on above: Performed By: #### L 3890.6006, L100.0100, L501.0250, L509.8002 ####[facility] [address] [place], [address] Erythrocyte distribution width (RBC) [Ratio] 13.2 % Normal 11.6-14.6 [facility] Comment on above: Performed By: #### L 3890.6006, L100.0100, L501.0250, L509.8002 ####[facility] [address] [place], [address] Hematocrit (Bld) [Volume fraction] 34.6 % Low 37-47 [facility] Comment on above: Performed By: #### L 3890.6006, L100.0100, L501.0250, L509.8002 ####[facility] [address] [place] [place], [address] Hemoglobin (Bld) [Mass/Vol] 11.8 g/dL Low 12.0-15.0 [facility] Comment on above: Performed By: #### L 3890.6006, L100.0100, L501.0250, L509.8002 ####[facility] [address] [place], [address] IG% 0.800 Normal 0.0-0.9 [facility] Comment on above: Result Comment: IG% - Immature Granulocytes (promyelocytes, myelocytes and metamyelocytes) > 1% indicates that a LEFT SHIFT is Present. Performed By: #### L 3890.6006, L100.0100, L501.0250, L509.8002 ####[facility] [address] [place], [address] Lymphocytes/100 WBC (Bld) 12.8 % Low 19-41 [facility] Comment on above: Performed By: #### L 3890.6006, L100.0100, L501.0250, L509.8002 ####[facility] [address] [place], [address] MCH (RBC) [Entitic mass] 31.6 pg Normal 27.0-32.0 [facility] Comment on above: Performed By: #### L 3890.6006, L100.0100, L501.0250, L509.8002 ####[facility] [address] [place], [address] MCHC (RBC) [Mass/Vol] 34.1 g/dL Normal 32-36 [facility] Comment on above: Performed By: #### L 3890.6006, L100.0100, L501.0250, L509.8002 ####[facility] [address] [place], [address] MCV (RBC) [Entitic vol] 92.8 fL Normal 81-[address] [facility] Comment on above: Performed By: #### L 3890.6006, L100.0100, L501.0250, L509.8002 ####[facility] [address] [place], [address] Monocytes/100 WBC (Bld) 8.9 % Normal 0-[address] [facility] Comment on above: Performed By: #### L 3890.6006, L100.0100, L501.0250, L509.8002 ####[facility] [address] [place], [address] Neutrophils/100 WBC (Bld) 75.4 % High 47-70 [facility] Comment on above: Performed By: #### L 3890.6006, L100.0100, L501.0250, L509.8002 ####[facility] [address] [place], [address] Nucleated RBC (Bld) [#/Vol] 0 10*3/uL Normal 0-5 [facility] Comment on above: Performed By: #### L 3890.6006, L100.0100, L501.0250, L509.8002 ####[facility] [address] [place], [address] Platelet mean volume (Bld) [Entitic vol] 10.9 fL Normal 6.2-12.0 [facility] Comment on above: Performed By: #### L 3890.6006, L100.0100, L501.0250, L509.8002 ####[facility] [address] [place], [address] Platelets (Bld) [#/Vol] 248 10*3/uL Normal 150-450 [facility] Comment on above: Performed By: #### L 3890.6006, L100.0100, L501.0250, L509.8002 ####[facility] [address] [place], [address] RBC (Bld) [#/Vol] 3.73 10*6/uL Low 4.2-5.4 [facility] Comment on above: Performed By: #### L 3890.6006, L100.0100, L501.0250, L509.8002 ####[facility] [address] [place], [address] RDW SD 44.3 fl High 35.1-43.9 [facility] Comment on above: Performed By: #### L 3890.6006, L100.0100, L501.0250, L509.8002 ####[facility] [address] [place], [address] WBC (Bld) [#/Vol] 10.4 10*3/uL Normal 4.4-11.0 [facility] Comment on above: Performed By: #### L 3890.6006, L100.0100, L501.0250, L509.8002 ####[facility] [address] [place], [place], [id number] Eosinophil percentageOrdered By: Sharri Begum on 11-13-2024 Eosinophils/100 WBC (Bld) 1.9 % 0-5 [facility] Erythrocyte distribution wid th ratioOrdered By: Sharri Begum on 11-13-2024 Erythrocyte distribution width (RBC) [Ratio] 13.2 % 11.6-14.6 [facility] Erythrocyte distribution wid th standard deviationOrdered By: Sharri Begum on 11-13-2024 Erythrocyte distribution width (RBC) [Ratio] 44.3 fl High 35.1-43.9 [facility] Glucose Challenge Gest 1H 50 purnima 11-13-2024 GLU GEST 50g 1H 95 mg/dL Normal 70-140 [facility] Comment on above: Performed By: #### L 3890.6006, L100.0100, L501.0250, L509.8002 ####[facility] [address] [place], [address] Glucose measurement at 2 donald rs post-dose gestational glucose tolerance testOrdered By: Sharri Begum on 11-13-2024 Glucose [Mass/Vol] 95 mg/dL 70-140 [facility] HIVon 11-13-2024 HIV Non-Reactive Normal Nonreactive [facility] Comment on above: Result Comment: Non- Reactive Reactive Repeatedly reactive samples must be confirmed according to CDC recommended confirmatory algorithms. The subresults for either HIVAG or AHIV can be used as an aid in the selection of the confirmation algorithm for reactive samples. Send out specimens with Reactive results to [facility] for confirmation. Order the HIV antibody detection and differentiation: #[id number] Performed By: #### L 3890.6006, L100.0100, L501.0250, L509.8002 ####[facility] [address] [place], [address] Hematocrit Auto (Bld) [Volum e fraction]Ordered By: Sharri Begum on 11-13-2024 Hematocrit (Bld) [Volume fraction] 34.6 % Low 37-47 [facility] Hemoglobin measurementOrdere d By: Sharri Begum on 11-13-2024 Hemoglobin (Bld) [Mass/Vol] 11.8 g/dL Low 12.0-15.0 [facility] Immature granulocytes/100 WB C Auto (Bld)Ordered By: Sharri Begum on 11-13-2024 Immature granulocytes/100 WBC (Bld) 0.800 % 0.0-0.9 [facility] Comment on above: IG% - Immature Granu locytes (promyelocytes, myelocytes and metamyelocytes) > 1% indicates that a LEFT SHIFT is Present. Laboratory - Chemistry and C hemistry - challengeOrdered By: Imani Sullivan on 11-13-2024 Glucose Ql (U) Negative [facility] Laboratory - UrinalysisOrder ed By: Imani Sullivan on 11-13-2024 Protein Ql (U) Negative [facility] MCV (mean corpuscular volume ) determinationOrdered By: Sharri Begum on 11-13-2024 MCV (RBC) [Entitic vol] 92.8 fL 81-99 [facility] Mean corpuscular hemoglobin (MCH) determinationOrdered By: Sharri Begum on 11-13-2024 MCH (RBC) [Entitic mass] 31.6 pg 27.0-32.0 [facility] Mean corpuscular hemoglobin concentration (MCHC) determinationOrdered By: Sharri Begum on 11-13-2024 MCHC (RBC) [Mass/Vol] 34.1 g/dL 32-36 [facility] Mean platelet volume determi nationOrdered By: Sharri Begum on 11-13-2024 Platelet mean volume (Bld) [Entitic vol] 10.9 fL 6.2-12.0 [facility] Monocyte percentageOrdered B y: Sharri Begum on 11-13-2024 Monocytes/100 WBC (Bld) 8.9 % 0-10 [facility] Neutrophil percentageOrdered By: Sharri Begum on 11-13-2024 Neutrophils/100 WBC (Bld) 75.4 % High 47-70 [facility] No Panel InformationOrdered By: Sharri Begum on 11-13-2024 HIV (1&2) Antibody Non-Reactive Nonreactive [facility] Comment on above: Non-ReactiveReactive Repeatedly reactive samples must be confirmed according to CDC recommended confirmatory algorithms. The subresults for either HIVAG or AHIV can be used as an aid in the selection of the confirmation algorithm for reactive samples.Send out specimens with Reactive results to [facility] for confirmation.Order the HIV antibody detection and differentiation: #[id number] Nucleated red blood cell per centageOrdered By: Sharri Begum on 11-13-2024 Nucleated RBC/100 WBC (Bld) [Ratio] 0 % 0-5 [facility] [employer] Office Visit Reporton 11-13-2024 [employer] Office Visit Report [facility]'s [address], [address] [place] [address] OFFICE VISIT Date of Service: 11/13/24 MR#: [id number] Acct: [id number] Name: GRANT RUVALCABA Rep #: [id number] : 2000 Provider: SAADIA presley Age/Sex: 24/F Location: [facility] Status: Signed Intake Vital Signs 09/04/24 15:35 10/30/24 13:25 11/13/24 13:07 Height 5 ft 5 ft 1 in 5 ft 1 in Weight: 185 lb 4 oz BMI 34.9 BP 112/78 Intake Visit Reasons: 28wk ob/glucose Chief Complaint: 28 Week OB/glucose 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 Fe[employer] Required: No Is patient in pain?: No [...] house number of children: 1 current occupation: [employer] current occupational exposures/hazards: No pets and [...] 1-2 times per week duration: 15-30 minutes/day eveline/sabianism: Moravian seatbelt use: always do you feel safe [...] - full term 7lbs 6oz Male epidural [facility] S katia Douglaslora Killian Delivery Date: [...] 10 o (more content not included)... Normal [facility] Platelet countOrdered By: Baljit Begum on 11-13-2024 Platelets (Bld) [#/Vol] 248 10*3/uL 150-450 [facility] RBC Auto (Bld) [#/Vol]Ordere d By: Sharri Begum on 11-13-2024 RBC (Bld) [#/Vol] 3.73 10*6/uL Low 4.2-5.4 [facility] Syphilis Antibodieson 2024 Syphilis Abs Non-Reactive Normal Nonreactive [facility] Comment on above: Performed By: #### L 3890.6006, L100.0100, L501.0250, L509.8002 ####[facility] [address] [place], [address] White blood cell (WBC) count Ordered By: Sharri Begum on 11-13-2024 WBC (Bld) [#/Vol] 10.4 10*3/uL 4.4-11.0 [facility] Laboratory - Chemistry and C hemistry - challengeOrdered By: Sharri Begum on 10-30-2024 Glucose Ql (U) Negative [facility] Laboratory - UrinalysisOrder ed By: Sharri Begum on 10-30-2024 Protein Ql (U) Negative [facility] [employer] Office Visit Reporton 10-30-2024 [employer] Office Visit Report [facility]'s [address], [address] [place] [address] OFFICE VISIT Date of Service: 10/30/24 MR#: [id number] Acct: [id number] Name: GRANT RUVALCABA Rep #: [id number] : 2000 Provider: SPIKE Adams ams Age/Sex: 24/F Location: [facility] Status: Signed Intake Vital Signs 09/04/24 15:35 10/18/24 11:39 10/30/24 13:25 Height 5 ft 5 ft 1 in 5 ft 1 in Weight: 183 lb 2 oz BMI 34.6 BP 113/78 Intake Visit Reasons: 26wk ob *25w6d Chief Complaint: 26wk OB 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 Feeder Required: No Is patient in pain?: No [...] house number of children: 1 current occupation: [employer] current occupational exposures/hazards: No pets and [...] 1-2 times per week duration: 15-30 minutes/day eveline/sabianism: Moravian seatbelt use: always do you feel safe at home: Yes additional social history: : [employer] History 2 Elective abortions Hx Para 1 Spontaneous abortions Hx # Term Pregnancies 1 Ectopic pregnancies Hx # Pregnancies Multiple births # of living children 1 Past Pregnancies Del. Date Name GA/Weeks Outcome Route Bth Weight Infant Gen Labor Lgth Anesthesia Del Locatn Provider FOB 09/23/22 Kate 38 live - full term 7lbs 6oz Male epidural [facility] Zach Carr Killian Delivery Date: 09/23/22 [...] -???-???-???-???-???-?? ?-???-???-???-???-?? (more content not included)... Normal [facility] Electrocardiogram reportOrde red By: Manolo Merritt on 10-19-2024 EKG study [facility] Cardiovascular Services [address] [place] [address] 12 Lead EKG 10/18/24 1223 MR#: [id number] Acct: [id number] Name: GRANT RUVALCABA Rep #:[id number] : 2000 From: Manolo alfonso MD Attending Dr: SAADIA Balderas Status: REG CLI Ordering Dr: Imani Sullivan NP [employer]EC[employer]-C Da te: 10/18/24 Location: [facility] Sex: F C Admitted: Test Reason : CP,DIZZY,SOB Blood Pressure : */* mmHG Vent. Rate : 89 BPM Atrial Rate : 89 BPM P-R Int : 136 ms QRS Dur : 70 ms QT Int : 346 ms P-R-T Axes : 45 16 17 degrees QTcB Int : 420 ms Normal sinus rhythm Normal ECG Confirmed by Manolo Merritt ([id number]), school photograph editor AMANDA WATSON ([id number]) on 10/19/2024 12:54:33 PM Referred By: Imani Sullivan Confirmed By: Manolo Merritt 10/19/24 1254 Date _ Manolo Merritt MD CC: EXEC[employer]IVE [employer]INO HOST-Martita Sullivan; GERALDINE Keith ~ Signed [facility] Other Phone: 12 Lead EKGon 10-18-2024 12 Lead EKG [facility] Cardiovascular Services [address] [place] [address] 12 Lead EKG 10/18/24 1223 MR#: [id number] Acct: [id number] Name: RINA RUVALCABAErvin HERNANDEZ Rep #: [id number] : 2000 24 From: Manolo Merritt MD Attending Dr: SAADIA Balderas Status: REG CLI Ordering Dr: Imani Sullivan NP Date: 10/18/24 Location: [facility] Sex: F C Admitted: Test Reason : CP,DIZZY,SOB Blood Pressure : */* mmHG Vent. Rate : 89 BPM Atrial Rate : 89 BPM P-R Int : 136 ms QRS Dur : 70 ms QT Int : 346 ms P-R-T Axes : 45 16 17 degrees QTcB Int : 420 ms Normal sinus rhythm Normal ECG Confirmed by Manolo Merritt ([id number]), school photograph editor AMANDA WATSON ([id number]) on 10/19/2024 12:54:33 PM Referred By: Imani Sullivan Confirmed By: Manolo Merritt 10/19/24 1254 Date Manolo Merritt MD CC: EXEC[employer]IVE [employer]INO HOST-Martita Sullivan; GERALDINE Keith Signed Normal [facility] Chest PA and Lateralon 10-18 Chest PA and Lateral [facility] Imaging Services [address] [place] [address] Chest PA and Lateral MR#: [id number] Acct: [id number] Name: GRANT RUVALCABA DAVID Rep #: [id number] : 2000 F 24 From: Davion Fisher MD PCP: Neda Keith PA-C Status: REG CLI Study: Chest PA and Lateral Date of Exam: 10/18/24 Exam# [id number] Ordering Dr: Imani Sullivan NP [employer]EC[employer]IVE [employer] H[employer] -C EXAM: XR Chest, 2 Views CLINICAL INDICATION: CHEST PAIN TECHNIQUE: Frontal and lateral views of the chest. COMPARISON: No relevant prior studies available. FINDINGS: LUNGS AND PLEURAL SPACES: Unremarkable. No consolidation. No pneumothorax. HEART: Unremarkable. No cardiomegaly. MEDIASTINUM: Unremarkable. Normal mediastinal contour. BONES/JOINTS: Unremarkable. No acute fracture. RAD/Chest PA and Lateral IMPRESSION: No acute cardiopulmonary process. Reading Location: [facility] CC: SAADIA Sullivan; GERALDINE Keith Director Of Vital Statistics: Signed Normal [facility] Laboratory - Chemistry and C hemistry - challengeOrdered By: Imani Sullivan on 10-18-2024 Glucose Ql (U) Negative [facility] Laboratory - UrinalysisOrder ed By: Imani Sullivan on 10-18-2024 Protein Ql (U) Trace [facility] [employer] Office Visit Reporton 10-18-2024 [employer] Operator Office Visit Report [address], [address] [place] [address] OFFICE VISIT Date of Service: 10/18/24 MR#: [id number] Acct: [id number] Name: GRANT RUVALCABA Rep #: [id number] : 2000 Provider: SAADIA presley Age/Sex: 24/F Location: [facility] Status: Signed Intake Vital Signs 10/16/24 14:40 10/18/24 11:39 Height 5 ft 1 in 5 ft 1 in Weight: 180 lb 8 oz BMI 34.1 BP 118/81 H Intake Visit Reasons: ED Follow Up 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 Feeder Required: No Is patient in pain?: No [...] house number of children: 1 current occupation: [employer] current occupational exposures/hazards: No pets and [...] 1-2 times per week duration: 15-30 minutes/day eveline/sabianism: Moravian seatbelt use: always do you feel safe at home: Yes additional social history: : [employer] History 2 Elective abortions Hx Para 1 Spontaneous abortions Hx # Term Pregnancies 1 Ectopic pregnancies Hx # Pregnancies Multiple births # of living children 1 Past Pregnancies Del. Date Name GA/Weeks Outcome Route Bth Weight Infant Gen Labor Lgth Anesthesia Del Locatn Provider FOB 09/23/22 Kate 38 live - full term 7lbs 6oz Male epidural [facility] Zach Carr Killian Delivery Date: 09/23/22 Last Updated by: Jenna M Ketler SM IAL SROM boy kate [facility] ED Follow Up Details: GRANT RUVALCABA is [...] 160 -???-???- (more content not included)... Normal [facility] Absolute lymphocyte countOrd ered By: Edwin Rome on 10-16-2024 Lymphocytes Auto (Unsp spec) [#/Vol] 1.75 10*3/uL 0.83-4.51 [facility] Absolute neutrophil countOrd ered By: Edwinfred Rome on 10-16-2024 Neutrophils (Bld) [#/Vol] 10.8 10*3/uL High 2.0-7.7 [facility] Activated partial thrombopla stin time (aPTT) in platelet poor plasma by coagulation aOrdered By: Edwin Rome on 10-16-2024 aPTT Coag (PPP) [Time] 26.6 s 24.1-36.2 [facility] Anion gap in Serum or Plasma Ordered By: Edwin Rome on 10-16-2024 Anion gap [Moles/Vol] 10 mmol/L 5-15 [facility] Automated lymphocyte count a s percentage of total leukocytesOrdered By: Edwin Rome on 10-16-2024 Lymphocytes/100 WBC Auto (Unsp spec) 12.4 % Low 19-41 [facility] BUN/creatinine ratioOrdered By: Edwin Rome on 10-16-2024 Urea nitrogen/Creatinine [Mass ratio] 17.2 mg/mg 10-20 [facility] Basophil percentageOrdered B y: Edwin Rome on 10-16-2024 Basophils/100 WBC (Bld) 0.2 % 0-1 [facility] Bilirubin, totalOrdered By: Edwin Rome on 10-16-2024 Bilirubin [Mass/Vol] mg/dL 0.00-1.30 [facility] CBC W/Diff, Automatedon Absolute Lymph 1.75 X10 3/uL Normal 0.83-4.51 [facility] Comment on above: Performed By: #### L 100.0100, L300.3900, L300.4310, L501.1400, L500.4050 ####[facility] [address] [place], [address] Absolute Neut 10.8 X10 3/uL High 2.0-7.7 [facility] Comment on above: Performed By: #### L 100.0100, L300.3900, L300.4310, L501.1400, L500.4050 ####[facility] [address] [place], [address] Basophils/100 WBC (Bld) 0.2 % Normal 0-1 [facility] Comment on above: Performed By: #### L 100.0100, L300.3900, L300.4310, L501.1400, L500.4050 ####[facility] [address] [place], [address] Eosinophils/100 WBC (Bld) 1.6 % Normal 0-5 [facility] Comment on above: Performed By: #### L 100.0100, L300.3900, L300.4310, L501.1400, L500.4050 ####[facility] [address] [place], [address] Erythrocyte distribution width (RBC) [Ratio] 12.9 % Normal 11.6-14.6 [facility] Comment on above: Performed By: #### L 100.0100, L300.3900, L300.4310, L501.1400, L500.4050 ####[facility] [address] [place], [address] Hematocrit (Bld) [Volume fraction] 33.3 % Low 37-47 [facility] Comment on above: Performed By: #### L 100.0100, L300.3900, L300.4310, L501.1400, L500.4050 ####[facility] [address] [place], [address] Hemoglobin (Bld) [Mass/Vol] 11.7 g/dL Low 12.0-15.0 [facility] Comment on above: Performed By: #### L 100.0100, L300.3900, L300.4310, L501.1400, L500.4050 ####[facility] [address] [place], [address] IG% 0.900 Normal 0.0-0.9 [facility] Comment on above: Result Comment: IG% - Immature Granulocytes (promyelocytes, myelocytes and metamyelocytes) > 1% indicates that a LEFT SHIFT is Present. Performed By: #### L 100.0100, L300.3900, L300.4310, L501.1400, L500.4050 ####[facility] [address] [place], [address] Lymphocytes/100 WBC (Bld) 12.4 % Low 19-41 [facility] Comment on above: Performed By: #### L 100.0100, L300.3900, L300.4310, L501.1400, L500.4050 ####[facility] [address] [place], [address] MCH (RBC) [Entitic mass] 32.2 pg High 27.0-32.0 [facility] Comment on above: Performed By: #### L 100.0100, L300.3900, L300.4310, L501.1400, L500.4050 ####[facility] [address] [place], [address] MCHC (RBC) [Mass/Vol] 35.1 g/dL Normal 32-36 [facility] Comment on above: Performed By: #### L 100.0100, L300.3900, L300.4310, L501.1400, L500.4050 ####[facility] [address] [place], [address] MCV (RBC) [Entitic vol] 91.7 fL Normal 81-[address] [facility] Comment on above: Performed By: #### L 100.0100, L300.3900, L300.4310, L501.1400, L500.4050 ####[facility] [address] [place], [address] Monocytes/100 WBC (Bld) 8.1 % Normal 0-[address] [facility] Comment on above: Performed By: #### L 100.0100, L300.3900, L300.4310, L501.1400, L500.4050 ####[facility] [address] [place], [address] Neutrophils/100 WBC (Bld) 76.8 % High 47-70 [facility] Comment on above: Performed By: #### L 100.0100, L300.3900, L300.4310, L501.1400, L500.4050 ####[facility] [address] [place], [address] Nucleated RBC (Bld) [#/Vol] 0 10*3/uL Normal 0-5 [facility] Comment on above: Performed By: #### L 100.0100, L300.3900, L300.4310, L501.1400, L500.4050 ####[facility] [address] [place], [address] Platelet mean volume (Bld) [Entitic vol] 10.7 fL Normal 6.2-12.0 [facility] Comment on above: Performed By: #### L 100.0100, L300.3900, L300.4310, L501.1400, L500.4050 ####[facility] [address] [place], [address] Platelets (Bld) [#/Vol] 278 10*3/uL Normal 150-450 [facility] Comment on above: Performed By: #### L 100.0100, L300.3900, L300.4310, L501.1400, L500.4050 ####[facility] [address] [place], [address] RBC (Bld) [#/Vol] 3.63 10*6/uL Low 4.2-5.4 [facility] Comment on above: Performed By: #### L 100.0100, L300.3900, L300.4310, L501.1400, L500.4050 ####[facility] [address] [place], [address] RDW SD 42.5 fl Normal 35.1-43.9 [facility] Comment on above: Performed By: #### L 100.0100, L300.3900, L300.4310, L501.1400, L500.4050 ####[facility] [address] [place], [address] WBC (Bld) [#/Vol] 14.1 10*3/uL High 4.4-11.0 [facility] Comment on above: Performed By: #### L 100.0100, L300.3900, L300.4310, L501.1400, L500.4050 ####[facility] [address] [place], [address] Carbon dioxide, total [Moles /volume] in Central venous bloodOrdered By: Edwin Rome on 10-16-2024 CO2 [Moles/Vol] 20.6 mmol/L Low 21.0-32.0 [facility] Chloride assayOrdered By: Lisette Rome on 10-16-2024 Chloride [Moles/Vol] 104 mmol/L 98-108 [facility] Comprehensive Metabolic Prof ilon 10-16-2024 Albumin [Mass/Vol] 3.6 g/dL Normal 3.5-5.0 [facility] Comment on above: Performed By: #### L 100.0100, L300.3900, L300.4310, L501.1400, L500.4050 ####[facility] [address] [place], [address] Albumin/Globulin [Mass ratio] 1.2 {ratio} Normal 0.9-2.4 [facility] Comment on above: Performed By: #### L 100.0100, L300.3900, L300.4310, L501.1400, L500.4050 ####[facility] [address] [place], [address] ALK PHOS 89 U/L Normal 35-104 [facility] Comment on above: Performed By: #### L 100.0100, L300.3900, L300.4310, L501.1400, L500.4050 ####[facility] [address] [place], [address] ALT [Catalytic activity/Vol] 11 U/L Normal <=34 [facility] Comment on above: Performed By: #### L 100.0100, L300.3900, L300.4310, L501.1400, L500.4050 ####[facility] [address] [place], [address] AST [Catalytic activity/Vol] 14 U/L Normal <=31 [facility] Comment on above: Performed By: #### L 100.0100, L300.3900, L300.4310, L501.1400, L500.4050 ####[facility] [address] [place], [address] BUN/CRE 17.2 RATIO Normal 10-20 [facility] Comment on above: Performed By: #### L 100.0100, L300.3900, L300.4310, L501.1400, L500.4050 ####[facility] [address] [place], [address] Calcium [Mass/Vol] 9.3 mg/dL Normal 7.6-11.0 [facility] Comment on above: Performed By: #### L 100.0100, L300.3900, L300.4310, L501.1400, L500.4050 ####[facility] [address] [place], [address] Chloride [Moles/Vol] 104 mmol/L Normal 98-108 [facility] Comment on above: Performed By: #### L 100.0100, L300.3900, L300.4310, L501.1400, L500.4050 ####[facility] [address] [place], [address] CO2 [Moles/Vol] 20.6 mmol/L Low 21.0-32.0 [facility] Comment on above: Performed By: #### L 100.0100, L300.3900, L300.4310, L501.1400, L500.4050 ####[facility] [address] [place], [address] Creatinine [Mass/Vol] 0.50 mg/dL Low 0.70-1.20 [facility] Comment on above: Performed By: #### L 100.0100, L300.3900, L300.4310, L501.1400, L500.4050 ####[facility] [address] [place], [address] ECRCL 166.35 ml/min Normal 50-250 [facility] Comment on above: Performed By: #### L 100.0100, L300.3900, L300.4310, L501.1400, L500.4050 ####[facility] [address] [place], [address] GAP 10 Normal 5-15 [facility] Comment on above: Performed By: #### L 100.0100, L300.3900, L300.4310, L501.1400, L500.4050 ####[facility] [address] [place], [address] GFR/1.73 sq M.predicted among non-blacks MDRD (S/P/Bld) [Vol rate/Area] 134 mL/min/{1.73_m2} Normal >60 [facility] Comment on above: Result Comment: mL/m in/1.73m2 CKD-EPI Creatinine Equation (2020) Performed By: #### L 100.0100, L300.3900, L300.4310, L501.1400, L500.4050 ####[facility] [address] [place], [address] Globulin (S) [Mass/Vol] 3.1 g/dL Normal 2.2-4.[address] [facility] Comment on above: Performed By: #### L 100.0100, L300.3900, L300.4310, L501.1400, L500.4050 ####[facility] [address] [place], [address] Glucose [Mass/Vol] 98 mg/dL Normal 70-99 [facility] Comment on above: Performed By: #### L 100.0100, L300.3900, L300.4310, L501.1400, L500.4050 ####[facility] [address] [place], [address] Potassium [Moles/Vol] 3.9 mmol/L Normal 3.3-5.1 [facility] Comment on above: Performed By: #### L 100.0100, L300.3900, L300.4310, L501.1400, L500.4050 ####[facility] [address] [place], [address] Sodium [Moles/Vol] 135 mmol/L Normal 133-145 [facility] Comment on above: Performed By: #### L 100.0100, L300.3900, L300.4310, L501.1400, L500.4050 ####[facility] [address] [place], [address] T BILI < 0.15 Normal 0.00-1.30 [facility] Comment on above: Performed By: #### L 100.0100, L300.3900, L300.4310, L501.1400, L500.4050 ####[facility] [address] [place], [address] T PROT 6.6 g/dL Normal 5.9-8.4 [facility] Comment on above: Performed By: #### L 100.0100, L300.3900, L300.4310, L501.1400, L500.4050 ####[facility] [address] [place], [address] Urea nitrogen [Mass/Vol] 9 mg/dL Normal 4-19 [facility] Comment on above: Performed By: #### L 100.0100, L300.3900, L300.4310, L501.1400, L500.4050 ####[facility] [address] [place], [address] Emergency Department Summary on 10-16-2024 Emergency Department Summary [facility] Medical Records Department [address] [place] [address] Emergency Department Summary 10/16/24 MR#: [id number] Acct: [id number] Name: GRANT RUVALCABA Rep #: [id number] : 2000 24 From: Edwin Rome MD [...] house number of children: 1 current occupation: [employer] current occupational exposures/hazards: No pets and [...] 1-2 times per week duration: 15-30 minutes/day eveline/sabianism: Moravian seatbelt use: always do you feel safe at home: Yes additional social history: : [place] - [employer] ROS ROS ED Constitutional Constitutional [...] constipation, me (more content not included)... Normal [facility] Eosinophil percentageOrdered By: Edwin Rome on 10-16-2024 Eosinophils/100 WBC (Bld) 1.6 % 0-5 [facility] Erythrocyte distribution wid th ratioOrdered By: Edwinfred Rome on 10-16-2024 Erythrocyte distribution width (RBC) [Ratio] 12.9 % 11.6-14.6 [facility] Erythrocyte distribution wid th standard deviationOrdered By: Edwinfred Rome on 10-16-2024 Erythrocyte distribution width (RBC) [Ratio] 42.5 fl 35.1-43.9 [facility] Glomerular filtration rate ( GFR) estimation/1.73 sq m using serum, plasma, or whole bOrdered By: Edwinfred Rome on 10-16-2024 GFR/1.73 sq M.predicted among non-blacks MDRD (S/P/Bld) [Vol rate/Area] 134 mL/min/{1.73_m2} >60 [facility] Comment on above: mL/min/1.73m2 CKD-EP I Creatinine Equation (2020) Hematocrit Auto (Bld) [Volum e fraction]Ordered By: Edwinfred Rome on 10-16-2024 Hematocrit (Bld) [Volume fraction] 33.3 % Low 37-47 [facility] Hemoglobin measurementOrdere d By: Edwin Rome on 10-16-2024 Hemoglobin (Bld) [Mass/Vol] 11.7 g/dL Low 12.0-15.0 [facility] Immature granulocytes/100 WB C Auto (Bld)Ordered By: Edwin Rome on 10-16-2024 Immature granulocytes/100 WBC (Bld) 0.900 % 0.0-0.9 [facility] Comment on above: IG% - Immature Granu locytes (promyelocytes, myelocytes and metamyelocytes) > 1% indicates that a LEFT SHIFT is Present. International normalized rat io (INR) calculationOrdered By: Edwinfred Rome on 10-16-2024 INR Coag (Bld) [Relative time] 0.9 {INR} [facility] Laboratory - Chemistry and C hemistry - challengeOrdered By: Edwinfred Rome on 10-16-2024 AST [Catalytic activity/Vol] 14 U/L <32 [facility] MCV (mean corpuscular volume ) determinationOrdered By: Edwinfred Rome on 10-16-2024 MCV (RBC) [Entitic vol] 91.7 fL 81-99 [facility] Mean corpuscular hemoglobin (MCH) determinationOrdered By: [facility] on 10-16-2024 MCH (RBC) [Entitic mass] 32.2 pg High 27.0-32.0 [facility] Mean corpuscular hemoglobin concentration (MCHC) determinationOrdered By: Edwinfred Rome on 10-16-2024 MCHC (RBC) [Mass/Vol] 35.1 g/dL 32-36 [facility] Mean platelet volume determi nationOrdered By: Edwinfred Rome on 10-16-2024 Platelet mean volume (Bld) [Entitic vol] 10.7 fL 6.2-12.0 [facility] Monocyte percentageOrdered B y: Edwinfred Rome on 10-16-2024 Monocytes/100 WBC (Bld) 8.1 % 0-10 [facility] Neutrophil percentageOrdered By: [facility] 10-16-2024 Neutrophils/100 WBC (Bld) 76.8 % High 47-70 [facility] Nucleated red blood cell per centageOrdered By: Edwinfred Rome on 10-16-2024 Nucleated RBC/100 WBC (Bld) [Ratio] 0 % 0-5 [facility] Partial Thromboplast Timeon 10-16-2024 aPTT Coag (Bld) [Time] 26.6 s Normal 24.1-36.2 [facility] Comment on above: Performed By: #### L 100.0100, L300.3900, L300.4310, L501.1400, L500.4050 ####[facility] [address] [place], [place], [id number] Platelet countOrdered By: fred Rome on 10-16-2024 Platelets (Bld) [#/Vol] 278 10*3/uL 150-450 [facility] Potassium measurement (mass/ volume)Ordered By: Edwinfred Rome on 10-16-2024 Potassium (Unsp spec) [Mass/Vol] 3.9 mmol/L 3.3-5.1 [facility] Prothrombin Time w/INRon INR Coag (PPP) [Relative time] 0.9 {INR} Normal [facility] Comment on above: Performed By: #### L 100.0100, L300.3900, L300.4310, L501.1400, L500.4050 ####[facility] [address] [place], [place], [address] PT Coag (PPP) [Time] 12.8 s Normal 11.7-14.9 [facility] Comment on above: Performed By: #### L 100.0100, L300.3900, L300.4310, L501.1400, L500.4050 ####[facility] [address] [place], [place], [id number] Prothrombin timeOrdered By: Edwin Rome on 10-16-2024 PT Coag (PPP) [Time] 12.8 s 11.7-14.9 [facility] RBC Auto (Bld) [#/Vol]Ordere d By: Edwin Rome on 10-16-2024 RBC (Bld) [#/Vol] 3.63 10*6/uL Low 4.2-5.4 [facility] Serum creatinine measurement (mass/volume)Ordered By: Edwin Rome on 10-16-2024 Creatinine [Mass/Vol] 0.50 mg/dL Low 0.70-1.20 [facility] Serum globulin measurementOr dered By: Edwin Rome on 10-16-2024 Globulin (S) [Mass/Vol] 3.1 g/dL 2.2-4.[address] [facility] Serum glucose measurement (m ass/volume)Ordered By: Edwin Rome on 10-16-2024 Glucose [Mass/Vol] 98 mg/dL 70-99 [facility] Serum or plasma alanine corrales otransferase (ALT) measurementOrdered By: Edwin Rome on 10-16-2024 ALT [Catalytic activity/Vol] 11 U/L <35 [facility] Serum or plasma albumin ximena urement (mass/volume)Ordered By: Edwinfred Rome on 10-16-2024 Albumin [Mass/Vol] 3.6 g/dL 3.5-5.0 [facility] Serum or plasma albumin/glob ulin mass ratioOrdered By: Edwin Rome on 10-16-2024 Albumin/Globulin [Mass ratio] 1.2 {ratio} 0.9-2.4 [facility] Serum or plasma alkaline bismark sphatase measurementOrdered By: Edwinfred Rome on 10-16-2024 ALP [Catalytic activity/Vol] 89 U/L 35-104 [facility] Serum or plasma calcium ximena urement (mass/volume)Ordered By: Edwin Rome on 10-16-2024 Calcium [Mass/Vol] 9.3 mg/dL 7.6-11.0 [facility] Serum or plasma urea nitroge n measurement (mass/volume)Ordered By: Edwin Rome on 10-16-2024 Urea nitrogen [Mass/Vol] 9 mg/dL 4-19 [facility] Serum or plasma uric acid me asurement (mass/volume)Ordered By: Edwin Rome on 10-16-2024 Urate [Mass/Vol] 4.5 mg/dL 2.6-6.0 [facility] Comment on above: The drugs N-Acetylcy steine and Metamizole may falsely depress this assay. Sodium levelOrdered By: Edwin Rome on 10-16-2024 Sodium [Moles/Vol] 135 mmol/L 133-145 [facility] Total proteinOrdered By: Edwinfred Rome on 10-16-2024 Protein [Mass/Vol] 6.6 g/dL 5.9-8.4 [facility] Uric Acidon 10-16-2024 URIC 4.5 mg/dL Normal 2.6-6.0 [facility] Comment on above: Result Comment: The drugs N-Acetylcysteine and Metamizole may falsely depress this assay. Performed By: #### L 100.0100, L300.3900, L300.4310, L501.1400, L500.4050 ####[facility] [address] [place], [address] Urinalysis, Completeon 10-16 BACTERIA 0 SEEN Normal None Seen [facility] Comment on above: Order Comment: CLEAN CATCH Result Comment: SAMP LE SENT ON WRONG PT. PT DISCHARGED. Performed By: #### L 400.0001 ####[facility] [address] [place], [address] EPI,SQUAMOUS 0 SEEN Normal 5-10 [facility] Comment on above: Order Comment: CLEAN CATCH Result Comment: SAMP LE SENT ON WRONG PT. PT DISCHARGED. Performed By: #### L 400.0001 ####[facility] [address] [place], [address] Mucus Ql (Urine sed) 0 SEEN Normal [facility] Comment on above: Order Comment: CLEAN CATCH Result Comment: SAMP LE SENT ON WRONG PT. PT DISCHARGED. Performed By: #### L 400.0001 ####[facility] [address] [place], [address] RBC 0 SEEN Normal 0-5 [facility] Comment on above: Order Comment: CLEAN CATCH Result Comment: SAMP LE SENT ON WRONG PT. PT DISCHARGED. Performed By: #### L 400.0001 ####[facility] [address] [place], [address] WBC 0 SEEN Normal 0-5 [facility] Comment on above: Order Comment: CLEAN CATCH Result Comment: SAMP LE SENT ON WRONG PT. PT DISCHARGED. Performed By: #### L 400.0001 ####[facility] [address] [place], [address] BILIRUBIN URINE Normal Negative [facility] Comment on above: Order Comment: CLEAN CATCH Result Comment: SAMP LE SENT ON WRONG PT. PT DISCHARGED. Performed By: #### L 400.0001 ####[facility] [address] [place], [address] Clarity (U) Normal Clear [facility] Comment on above: Order Comment: CLEAN CATCH Result Comment: SAMP LE SENT ON WRONG PT. PT DISCHARGED. Performed By: #### L 400.0001 ####[facility] [address] [place], [address] Color (U) Normal Yellow [facility] Comment on above: Order Comment: CLEAN CATCH Result Comment: SAMP LE SENT ON WRONG PT. PT DISCHARGED. Performed By: #### L 400.0001 ####[facility] [address] [place] [id number] GLUCOSE, UR Normal Normal [facility] Comment on above: Order Comment: CLEAN CATCH Result Comment: SAMP LE SENT ON WRONG PT. PT DISCHARGED. Performed By: #### L 400.0001 ####[facility] [address] [facility] [address] KETONE UR Normal Negative [facility] Comment on above: Order Comment: CLEAN CATCH Result Comment: SAMP LE SENT ON WRONG PT. PT DISCHARGED. Performed By: #### L 400.0001 ####[facility] [address] [place] [id number] LEUK ESTERASE Normal Negative [facility] Comment on above: Order Comment: CLEAN CATCH Result Comment: SAMP LE SENT ON WRONG PT. PT DISCHARGED. Performed By: #### L 400.0001 ####[facility] [address] [place], [address] Nitrite Ql (U) Normal Negative [facility] Comment on above: Order Comment: CLEAN CATCH Result Comment: SAMP LE SENT ON WRONG PT. PT DISCHARGED. Performed By: #### L 400.0001 ####[facility] [address] [facility] [address] OCCULT BLOOD-UR Normal Negative [facility] Comment on above: Order Comment: CLEAN CATCH Result Comment: SAMP LE SENT ON WRONG PT. PT DISCHARGED. Performed By: #### L 400.0001 ####[facility] [address] [place], [address] pH UR Normal 5.0 - 8.0 [facility] Comment on above: Order Comment: CLEAN CATCH Result Comment: SAMP LE SENT ON WRONG PT. PT DISCHARGED. Performed By: #### L 400.0001 ####[facility] [address] [place], [address] PROT DIPSTX Normal Negative [facility] Comment on above: Order Comment: CLEAN CATCH Result Comment: SAMP LE SENT ON WRONG PT. PT DISCHARGED. Performed By: #### L 400.0001 ####[facility] [address] [place], [address] SP.GR. DIPSTX Normal 1.002-1.030 [facility] Comment on above: Order Comment: CLEAN CATCH Result Comment: SAMP LE SENT ON WRONG PT. PT DISCHARGED. Performed By: #### L 400.0001 ####[facility] [address] [place], [address] UR Preservative Normal [facility] Comment on above: Order Comment: CLEAN CATCH Result Comment: SAMP LE SENT ON WRONG PT. PT DISCHARGED. Performed By: #### L 400.0001 ####[facility] [address] [place], [address] UROBILI Normal Normal [facility] Comment on above: Order Comment: CLEAN CATCH Result Comment: SAMP LE SENT ON WRONG PT. PT DISCHARGED. Performed By: #### L 400.0001 ####[facility] [address] [place], [address] White blood cell (WBC) count Ordered By: Edwin Rome on 10-16-2024 WBC (Bld) [#/Vol] 14.1 10*3/uL High 4.4-11.0 [facility] Laboratory - Chemistry and C hemistry - challengeOrdered By: Imani Sullivan on 10-02-2024 Glucose Ql (U) Negative [facility] Laboratory - UrinalysisOrder ed By: Imani Sullivan on 10-02-2024 Protein Ql (U) Negative [facility] [employer] Office Visit Reporton 10-02-2024 [employer] Office Visit Report [facility]'s [address], [address] [place] [address] OFFICE VISIT Date of Service: 10/02/24 MR#: [id number] Acct: [id number] Name: GRANT RUVALCABA Rep #: [id number] : 2000 Provider: SAADIA presley Age/Sex: 24/F Location: [facility] Status: Signed Intake Vital Signs 07/06/24 13:11 09/04/24 15:35 10/02/24 08:33 Height 5 ft 5 ft 5 ft Weight: 175 lb 2 oz BMI 34.2 BP 110/72 Intake Visit Reasons: 22 wk ob Chief Complaint: 22 Week OB 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 Fe[employer] Required: No Is patient in pain?: No [...] house number of children: 1 current occupation: [employer] current occupational exposures/hazards: No pets and [...] 1-2 times per week duration: 15-30 minutes/day eveline/sabianism: Moravian seatbelt use: always do you feel safe at home: Yes additional social history: : [place] - [employer] History 2 Elective abortions Hx Para 1 Spontaneous abortions Hx # Term Pregnancies 1 Ectopic pregnancies Hx # Pregnancies Multiple births # of living children 1 Past Pregnancies Del. Date Name GA/Weeks Outcome Route Bth Weight Gen Labor Lgth Anesthesia Del Locatn Provider FOB 09/23/22 Kate 38 live - full term 7lbs 6oz Male epidural [facility] S katia Carr [place] Delivery Date: [...] -???-???-???-???-???-?? ?-???-???- (more content not included)... Normal [facility] Laboratory - Chemistry and C hemistry - challengeOrdered By: Imani Sullivan on 09-04-2024 Glucose Ql (U) Negative [facility] Laboratory - UrinalysisOrder ed By: Imani Sullivan on 09-04-2024 Protein Ql (U) Negative [facility] [employer] Office Visit Reporton 09-04-2024 [employer] Office Visit Report [facility]'s [address], [address] [place] [address] OFFICE VISIT Date of Service: 09/04/24 MR#: [id number] Acct: [id number] Name: GRANT RUVALCABA Rep #: [id number] : 2000 Provider: SAADIA presley Age/Sex: 24/F Location: [facility] Status: Signed Intake Vital Signs 07/06/24 13:11 08/07/24 14:08 09/04/24 15:35 Height 5 ft 5 ft 5 ft Weight: 171 lb 8 oz BMI 33.5 BP 113/79 Intake Visit Reasons: 18 wk ob Chief Complaint: 18 Week OB 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 Fe[employer] Required: No Is patient in pain?: No [...] 1-2 times per week duration: 15-30 minutes/day eveline/sabianism: Moravian seatbelt use: always do you feel safe at home: Yes additional social history: : [place] - [employer] History 2 Elective abortions Hx Para 1 Spontaneous abortions Hx # Term Pregnancies 1 Ectopic pregnancies Hx # Pregnancies Multiple births # of living children 1 Past Pregnancies Del. Date Name GA/Weeks Outcome Route Bth Weight Gen Labor Lgth Anesthesia Del Locatn Provider FOB 09/23/22 Kate 38 live - full term 7lbs 6oz Male epidural [facility] [place] Delivery Date: 09/23/22 Last Updated [...] -???-???-???-???-???-?? ?-???-???- (more content not included)... Normal [facility] Laboratory - Chemistry and C hemistry - challengeOrdered By: Karyna Carr on 08-07-2024 Glucose Ql (U) Negative [facility] Laboratory - UrinalysisOrder ed By: Karyna Carr on 08-07-2024 Protein Ql (U) Negative [facility] [employer] Office Visit Reporton 08-07-2024 Banbury [employer] Operator Office Visit Report [facility] [address], [address] [place] [address] OFFICE VISIT Date of Service: 08/07/24 MR#: [id number] Acct: [id number] Name: GRANT RUVALCABA Rep #: [id number] : 2000 Provider: Dr. Karyna sales MD Age/Sex: 24/F Location: [facility] Status: Signed Intake Vital Signs 04/03/24 13:02 07/06/24 13:11 08/07/24 14:08 Height 5 ft 5 ft 5 ft Weight: 168 lb 6 oz BMI 32.8 BP 123/82 H Intake Visit Reasons: 14 wk ob 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 Fe[employer] Required: No Is patient in pain?: No [...] house number of children: 1 current occupation: [employer] current occupational exposures/hazards: No pets and [...] 1-2 times per week duration: 15-30 minutes/day eveline/sabianism: Moravian seatbelt use: always do you feel safe at home: Yes additional social history: : [place] - [employer] History 2 Elective abortions Hx Para 1 Spontaneous abortions Hx # Term Pregnancies 1 Ectopic pregnancies Hx # Pregnancies Multiple births # of living children 1 Past Pregnancies Del. Date Name GA/Weeks Outcome Route Bth Weight Gen Labor Lgth Anesthesia Del Locatn Provider FOB 09/23/22 Kate 38 live - full term 7lbs 6oz Male epidural [facility] katia Carr [place] Delivery Date: 09/23/22 Last [...] ?-???-???-???-???-???-? ??- (more content not included)... Normal [facility] Absolute lymphocyte countOrd ered By: Sharri Begum on 07-10-2024 Lymphocytes Auto (Unsp spec) [#/Vol] 1.50 10*3/uL 0.83-4.51 [facility] Absolute neutrophil countOrd ered By: Sharri Begum on 07-10-2024 Neutrophils (Bld) [#/Vol] 7.6 10*3/uL 2.0-7.7 [facility] Automated lymphocyte count a s percentage of total leukocytesOrdered By: Sharri Begum on 07-10-2024 Lymphocytes/100 WBC Auto (Unsp spec) 14.7 % Low 19-41 [facility] Basophil percentageOrdered B y: Sharri Begum on 07-10-2024 Basophils/100 WBC (Bld) 0.2 % 0-1 [facility] CBC W/Diff, Automatedon 06-14 Absolute Lymph 1.50 X10 3/uL Normal 0.83-4.51 [facility] Comment on above: Performed By: #### L 900.0098, L100.0100, L509.4005, L509.8000, L3890.6005, L3890.6100, L3890.6300, BTS, L501.9985 ####[facility] [address] [place], [address] Absolute Neut 7.6 X10 3/uL Normal 2.0-7.7 [facility] Comment on above: Performed By: #### L 900.0098, L100.0100, L509.4005, L509.8000, L3890.6005, L3890.6100, L3890.6300, BTS, L501.9985 ####[facility] [address] [place], [address] Basophils/100 WBC (Bld) 0.2 % Normal 0-1 [facility] Comment on above: Performed By: #### L 900.0098, L100.0100, L509.4005, L509.8000, L3890.6005, L3890.6100, L3890.6300, BTS, L501.9985 ####[facility] [address] [place], [address] Eosinophils/100 WBC (Bld) 2.0 % Normal 0-5 [facility] Comment on above: Performed By: #### L 900.0098, L100.0100, L509.4005, L509.8000, L3890.6005, L3890.6100, L3890.6300, BTS, L501.9985 ####[facility] [address] [place], [address] Erythrocyte distribution width (RBC) [Ratio] 12.8 % Normal 11.6-14.6 [facility] Comment on above: Performed By: #### L 900.0098, L100.0100, L509.4005, L509.8000, L3890.6005, L3890.6100, L3890.6300, BTS, L501.9985 ####[facility] [address] [place], [address] Hematocrit (Bld) [Volume fraction] 38.8 % Normal 37-47 [facility] Comment on above: Performed By: #### L 900.0098, L100.0100, L509.4005, L509.8000, L3890.6005, L3890.6100, L3890.6300, BTS, L501.9985 ####[facility] [address] [place], [address] Hemoglobin (Bld) [Mass/Vol] 12.8 g/dL Normal 12.0-15.0 [facility] Comment on above: Performed By: #### L 900.0098, L100.0100, L509.4005, L509.8000, L3890.6005, L3890.6100, L3890.6300, BTS, L501.9985 ####[facility] [address] [place], [address] IG% 0.300 Normal 0.0-0.9 [facility] Comment on above: Result Comment: IG% - Immature Granulocytes (promyelocytes, myelocytes and metamyelocytes) > 1% indicates that a LEFT SHIFT is Present. Performed By: #### L 900.0098, L100.0100, L509.4005, L509.8000, L3890.6005, L3890.6100, L3890.6300, BTS, L501.9985 ####[facility] [address] [place], [address] Lymphocytes/100 WBC (Bld) 14.7 % Low 19-41 [facility] Comment on above: Performed By: #### L 900.0098, L100.0100, L509.4005, L509.8000, L3890.6005, L3890.6100, L3890.6300, BTS, L501.9985 ####[facility] [address] [place], [address] MCH (RBC) [Entitic mass] 30.3 pg Normal 27.0-32.0 [facility] Comment on above: Performed By: #### L 900.0098, L100.0100, L509.4005, L509.8000, L3890.6005, L3890.6100, L3890.6300, BTS, L501.9985 ####[facility] [address] [place], [address] MCHC (RBC) [Mass/Vol] 33.0 g/dL Normal 32-36 [facility] Comment on above: Performed By: #### L 900.0098, L100.0100, L509.4005, L509.8000, L3890.6005, L3890.6100, L3890.6300, BTS, L501.9985 ####[facility] [address] [place], [address] MCV (RBC) [Entitic vol] 91.7 fL Normal 81-99 [facility] Comment on above: Performed By: #### L 900.0098, L100.0100, L509.4005, L509.8000, L3890.6005, L3890.6100, L3890.6300, BTS, L501.9985 ####[facility] [address] [place], [address] Monocytes/100 WBC (Bld) 8.6 % Normal 0-10 [facility] Comment on above: Performed By: #### L 900.0098, L100.0100, L509.4005, L509.8000, L3890.6005, L3890.6100, L3890.6300, BTS, L501.9985 ####[facility] [address] [place], [address] Neutrophils/100 WBC (Bld) 74.2 % High 47-70 [facility] Comment on above: Performed By: #### L 900.0098, L100.0100, L509.4005, L509.8000, L3890.6005, L3890.6100, L3890.6300, BTS, L501.9985 ####[facility] [address] [place], [address] Nucleated RBC (Bld) [#/Vol] 0 10*3/uL Normal 0-5 [facility] Comment on above: Performed By: #### L 900.0098, L100.0100, L509.4005, L509.8000, L3890.6005, L3890.6100, L3890.6300, BTS, L501.9985 ####[facility] [address] [place], [address] Platelet mean volume (Bld) [Entitic vol] 11.2 fL Normal 6.2-12.0 [facility] Comment on above: Performed By: #### L 900.0098, L100.0100, L509.4005, L509.8000, L3890.6005, L3890.6100, L3890.6300, BTS, L501.9985 ####[facility] [address] [place], [address] Platelets (Bld) [#/Vol] 349 10*3/uL Normal 150-450 [facility] Comment on above: Performed By: #### L 900.0098, L100.0100, L509.4005, L509.8000, L3890.6005, L3890.6100, L3890.6300, BTS, L501.9985 ####[facility] [address] [place], [address] RBC (Bld) [#/Vol] 4.23 10*6/uL Normal 4.2-5.4 [facility] Comment on above: Performed By: #### L 900.0098, L100.0100, L509.4005, L509.8000, L3890.6005, L3890.6100, L3890.6300, BTS, L501.9985 ####[facility] [address] [place], [address] RDW SD 43.0 fl Normal 35.1-43.9 [facility] Comment on above: Performed By: #### L 900.0098, L100.0100, L509.4005, L509.8000, L3890.6005, L3890.6100, L3890.6300, BTS, L501.9985 ####[facility] [address] [place], [address] WBC (Bld) [#/Vol] 10.2 10*3/uL Normal 4.4-11.0 [facility] Comment on above: Performed By: #### L 900.0098, L100.0100, L509.4005, L509.8000, L3890.6005, L3890.6100, L3890.6300, BTS, L501.9985 ####[facility] [address] [place], [address] Chlamydia/GC SHANITA aptimaon CHLAMY,NUC ACID Negative Normal Negative [facility] Comment on above: Performed By: #### M 100.2200, L7000.1800 ####[facility] [address] [place], [place], [id number] GC BY NUC ACID Negative Normal Negative [facility] Comment on above: Result Comment: Perf ormed at: =G - [facility] [address] [place] [id number] Promotions Intern: Lise Chaparro MD, Phone: [phone] Performed By: #### M 100.2200, L7053.1800 ####[facility] [address] [place], [place], [address] Eosinophil percentageOrdered By: Sharri Begum on 07-10-2024 Eosinophils/100 WBC (Bld) 2.0 % 0-5 [facility] Erythrocyte distribution wid th ratioOrdered By: Sharri Begum on 07-10-2024 Erythrocyte distribution width (RBC) [Ratio] 12.8 % 11.6-14.6 [facility] Erythrocyte distribution wid th standard deviationOrdered By: Sharri Begum on 07-10-2024 Erythrocyte distribution width (RBC) [Ratio] 43.0 fl 35.1-43.9 [facility] HIV - WCHon 07-10-2024 HIV Non-Reactive Normal Nonreactive [facility] Comment on above: Order Comment: Reaso n for Exam: Performed By: #### L 900.0098, L100.0100, L509.4005, L509.8000, L3890.6005, L3890.6100, L3890.6300, BTS, L501.9985 ####[facility] [address] [place], [place], [address] HIV 1 and HIV-2 antibody ass ay with HIV-1 p24 antigen detectionOrdered By: Sharri Begum on 07-10-2024 HIV 1+2 Ab+HIV1 p24 Ag IA Ql Non-Reactive Nonreactive [facility] Hematocrit Auto (Bld) [Volum e fraction]Ordered By: Sharri Begum on 07-10-2024 Hematocrit (Bld) [Volume fraction] 38.8 % 37-47 [facility] Hemoglobin A1con 07-10-2024 HbA1c (Bld) [Mass fraction] 5.0 % Normal 3.8-5.6 [facility] Comment on above: Result Comment: Norm al < 5.7 % Prediabetic 5.7 - 6.4 % Diabetic >or= 6.5 % Please note range changes. Performed By: #### L 900.0098, L100.0100, L509.4005, L509.8000, L3890.6005, L3890.6100, L3890.6300, BTS, L501.9985 ####[facility] [address] [place], [place], [id number] Hemoglobin A1c percentageOrd ered By: Sharri Begum on 07-10-2024 HbA1c (Bld) [Mass fraction] 5.0 % 3.8-5.6 [facility] Comment on above: Normal < 5.7 % Predi abetic 5.7 - 6.4 % Diabetic >or= 6.5 % Please note range changes. Hemoglobin measurementOrdere d By: Sharri Begum on 07-10-2024 Hemoglobin (Bld) [Mass/Vol] 12.8 g/dL 12.0-15.0 [facility] Hepatitis B Surface Antigeno n 07-10-2024 HEP B Surf Ag Non-Reactive Normal Nonreactive [facility] Comment on above: Order Comment: Reaso n for Exam: Performed By: #### L 900.0098, L100.0100, L509.4005, L509.8000, L3890.6005, L3890.6100, L3890.6300, BTS, L501.9985 ####[facility] [address] [place], [place], [phone] Hepatitis C Antibodyon 07-10 Hepatitis C AB Non-Reactive Normal Nonreactive [facility] Comment on above: Order Comment: Reaso n for Exam: Result Comment: Non Reactive: < 0.8 Equivocal: >/= 0.8 to < 1.0 Reactive: >/= 1.0 The CDC requires that a reactive/equivocal HCV antibody result be sent out for confirmation. HCV Quant by PCR testing. Performed By: #### L 900.0098, L100.0100, L509.4005, L509.8000, L3890.6005, L3890.6100, L3890.6300, BTS, L501.9985 ####[facility] [address] [place], [address] Immature granulocytes/100 WB C Auto (Bld)Ordered By: Sharri Begum on 07-10-2024 Immature granulocytes/100 WBC (Bld) 0.300 % 0.0-0.9 [facility] Comment on above: IG% - Immature Granu locytes (promyelocytes, myelocytes and metamyelocytes) > 1% indicates that a LEFT SHIFT is Present. L509.8000on 07-10-2024 Syphilis Abs Non-Reactive Normal [facility] Comment on above: Order Comment: Reaso n for Exam: Performed By: #### L 900.0098, L100.0100, L509.4005, L509.8000, L3890.6005, L3890.6100, L3890.6300, BTS, L501.9985 ####[facility] [address] [place], [address] MCV (mean corpuscular volume ) determinationOrdered By: Sharri Begum on 07-10-2024 MCV (RBC) [Entitic vol] 91.7 fL 81-[address] [facility] Mean corpuscular hemoglobin (MCH) determinationOrdered By: Sharri Begum on 07-10-2024 MCH (RBC) [Entitic mass] 30.3 pg 27.0-32.0 [facility] Mean corpuscular hemoglobin concentration (MCHC) determinationOrdered By: Sharri Begum on 07-10-2024 MCHC (RBC) [Mass/Vol] 33.0 g/dL 32-36 [facility] Mean platelet volume determi nationOrdered By: Sharri Begum on 07-10-2024 Platelet mean volume (Bld) [Entitic vol] 11.2 fL 6.2-12.0 [facility] Monocyte percentageOrdered B y: Sharri Begum on 07-10-2024 Monocytes/100 WBC (Bld) 8.6 % 0-10 [facility] NATERAon 07-10-2024 NATURA SEE SCANNED REPORT Normal [facility] Comment on above: Performed By: #### L 900.0098, L100.0100, L509.4005, L509.8000, L3890.6005, L3890.6100, L3890.6300, BTS, L501.9985 ####[facility] [address] [place], [place], [phone] Neutrophil percentageOrdered By: Sharri Begum on 07-10-2024 Neutrophils/100 WBC (Bld) 74.2 % High 47-70 [facility] Nucleated red blood cell per centageOrdered By: Sharri Begum on 07-10-2024 Nucleated RBC/100 WBC (Bld) [Ratio] 0 % 0-5 [facility] Platelet countOrdered By: Baljit Begum on 07-10-2024 Platelets (Bld) [#/Vol] 349 10*3/uL 150-450 [facility] RBC Auto (Bld) [#/Vol]Ordere d By: Sharri Begum on 07-10-2024 RBC (Bld) [#/Vol] 4.23 10*6/uL 4.2-5.4 [facility] Rubella IgGon 07-10-2024 Rubella IgG Reactive Normal Nonreactive [facility] Comment on above: Order Comment: Reaso n for Exam: Result Comment: Anti body Results Interpretation of Immune Status Non Reactive Presumed Non-Immune Equivocal Equivocal Reactive Presumed Immune Performed By: #### L 900.0098, L100.0100, L509.4005, L509.8000, L3890.6005, L3890.6100, L3890.6300, BTS, L501.9985 ####[facility] [address] [place], [place], [id number] Serum Treponema species anti body detectionOrdered By: Sharri Begum on 07-10-2024 Treponema sp Ab Ql (S) Non-Reactive [facility] Type AND Screenon 07-10-2024 ABO and Rh group Nom (Bld) Blood group O Rh(D) positive Normal [facility] Comment on above: Order Comment: PN Performed By: #### L 900.0098, L100.0100, L509.4005, L509.8000, L3890.6005, L3890.6100, L3890.6300, BTS, L501.9985 ####[facility] [address] [place], [address] White blood cell (WBC) count Ordered By: Sharri Begum on 07-10-2024 WBC (Bld) [#/Vol] 10.2 10*3/uL 4.4-11.0 [facility] Urine Cultureon 07-08-2024 URC Mixed Gram Positive Organisms [place] Count 1000-10,000 MIXC Mixed contaminants. Submit a new specimen if indicated. Normal [facility] Comment on above: Performed By: #### M 100.2200, L7000.1800 ####[facility] [address] [place], [place], [address] Chlamydia trachomatis rRNA d etection by probe and target amplification methodOrdered By: Sharri Begum on 07-06-2024 C. trachomatis rRNA SHANITA+probe Ql (Unsp spec) Negative Negative [facility] Neisseria gonorrhoeae nuclei c acid detection by amplified probe techniqueOrdered By: Sharri Begum on 07-06-2024 N. 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 Office Visit Report [facility]'s [address], [address] [place] [address] OFFICE VISIT Date of Service: 07/06/24 MR#: [id number] Acct: [id number] Name: GRANT RUVALCABA Rep #: [id number] : 2000 Provider: SPIKE Adams ams Age/Sex: 24/F Location: [facility] Status: Signed Intake Vital Signs 04/03/24 13:02 07/06/24 13:08 07/06/24 13:11 Height 5 ft 5 ft 5 ft Weight: 171 lb BMI 33.4 BP 115/78 Intake Visit Reasons: New OB, LMP 05/02, ERMA 02/06/25 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 Feeder Required: No Is patient in pain?: No [...] house number of children: 1 current occupation: [employer] current occupational exposures/hazards: No pets and [...] 1-2 times per week duration: 15-30 minutes/day eveline/sabianism: Moravian seatbelt use: always do you feel safe [...] - full term 7lbs 6oz Male epidural [facility] S katia Daily Delivery Date: 09/23/22 [...] Period: 05/02/24 (more content not included)... Normal [facility] Urine cultureOrdered By: Luis Begum on 07-06-2024 Bacteria identified Cx Nom (U) Positive Abnormal [facility] PAP IG HPV APTIMA 16/18,45on 04-11-2024 ADEQ Comment Normal . [facility] Comment on above: Order Comment: Speci men Comment: [id number] Comment: Source.............CervixSpecimen Comment: LMP / Prev Treat...[id number] Comment: No. of containers..01 ThinPrep Vial Result Comment: Sati sfactory for evaluation. Endocervical and/or squamous metaplastic cells (endocervical component) are present. Performed By: #### L 7400.0280 ####[facility] [address] [place], [address] COMM . Normal . [facility] Comment on above: Order Comment: Speci men Comment: [id number] Comment: Source.............CervixSpecimen Comment: LMP / Prev Treat...[id number]=[id number] Comment: No. of containers..01 ThinPrep Vial Performed By: #### L 7400.0280 ####[facility] [address] [place], [place], [address] COMMENT Comment Normal . [facility] Comment on above: Order Comment: Speci men Comment: [id number] Comment: Source.............CervixSpecimen Comment: LMP / Prev Treat...[id number] Comment: No. of containers..01 ThinPrep Vial Result Comment: This liquid based ThinPrep(R) pap test was screened with the use of an image guided system. Performed By: #### L 7400.0280 ####[facility] [address] [place], [place], [id number] DIAG Comment Normal . [facility] Comment on above: Order Comment: Speci men Comment: [id number] Comment: Source.............CervixSpecimen Comment: LMP / Prev Treat...[id number] Comment: No. of containers..01 ThinPrep Vial Result Comment: NEGA TIVE FOR INTRAEPITHELIAL LESION OR MALIGNANCY. THIS SPECIMEN WAS RESCREENED PART OF OUR SILK SCREEN LAYOUT DRAFTER PROGRAM. Performed By: #### L 7400.0280 ####[facility] [address] [place], [address] HPV APTIMA, HR Negative Normal Negative [facility] Comment on above: Order Comment: Speci men Comment: [id number] Comment: Source.............CervixSpecimen Comment: LMP / Prev Treat...IEV=[id number] Comment: No. of containers..01 ThinPrep Vial Result Comment: This nucleic acid amplification test detects fourteen high- risk HPV types (16,18,31,33,35,39,45,51,52,56,58,59,66,68) without differentiation. Performed By: #### L 7400.0280 ####[facility] [address] [place], [place], [address] HPV Alisson Rfx Comment Normal . [facility] Comment on above: Order Comment: Speci men Comment: [id number] Comment: Source.............CervixSpecimen Comment: LMP / Prev Treat...EZR=[id number] Comment: No. of containers..01 ThinPrep Vial Result Comment: Crit missy not met, HPV Genotype not performed. Performed at: - [address] [id number] Promotions Intern: Lise Chaparro MD, Phone: [phone] Performed at: =G - [facility] [address] [id number] Promotions Intern: Lise Chaparro MD, Phone: [phone] Performed By: #### L 7400.0280 ####[facility] [address] [place], [place], [address] PAPSMR Comment Normal . [facility] Comment on above: Order Comment: Speci men Comment: [id number] Comment: Source.............CervixSpecimen Comment: LMP / Prev Treat...[id number] Comment: No. of containers..01 ThinPrep Vial Result Comment: The Pap smear is a screening test designed to aid in the detection of premalignant and malignant conditions of the uterine cervix. It is not a diagnostic procedure and should not be used as the sole means of detecting cervical cancer. Both false-positive and false-negative reports do occur. Performed By: #### L 7400.0280 ####[facility] [address] [place], [place], [address] PERFORM Comment Normal . [facility] Comment on above: Order Comment: Speci men Comment: [id number] Comment: Source.............CervixSpecimen Comment: LMP / Prev Treat...[id number]=[id number] Comment: No. of containers..01 ThinPrep Vial Result Comment: Anais Aguilera, Bus Mechanic (ASCP) Performed By: #### L 7400.0280 ####[facility] [address] [place], [place], [address] QC REV Comment Normal . [facility] Comment on above: Order Comment: Speci men Comment: [id number] Comment: Source.............CervixSpecimen Comment: LMP / Prev Treat...[id number]=[id number] Comment: No. of containers..01 ThinPrep Vial Result Comment: Lela De Oliveira, Bus Mechanic (ASCP) Performed By: #### L 7400.0280 ####[facility] [address] [place], [place], [address] Thyroid Peroxidase ABon 03-14 THYR PEROX AB 17 IU/mL Normal 0-34 [facility] Comment on above: Result Comment: Perf ormed at: CB - [facility] [address] [id number] Promotions Intern: Clyde Linda PhD, Phone: [phone] Performed By: #### L 506.1000, A825.0161, O092.0004, D0328.3002 ####[facility] [address] 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 [facility]'s [address], [address] [place] [address] OFFICE VISIT Date of Service: 04/03/24 MR#: [id number] Acct: [id number] Name: GRANT ARMSTRONG Rep #: [id number] : 2000 Provider: SAADIA presley Age/Sex: 24/F Location: [facility] Status: Signed Intake Vital Signs 03/13/24 13:10 04/03/24 12:57 04/03/24 13:02 Height 5 ft 5 ft 5 ft Weight: 162 lb 6 oz BMI 31.7 BP 112/78 Intake Visit Reasons: pap r/s Chief Complaint: Annual 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 Feeder Required: No Is patient in pain?: No [...] house current occupational status: employed current occupation: [employer] current occupational exposures/hazards: No pets and animals: [...] 1-2 times per week duration: 15-30 minutes/day eveline/sabianism: Moravian seatbelt use: always do you feel safe [...] oriented to person and oriented to place HENAZ Head: normal to inspection Neck Neck: normal [...] of th (more content not included)... Normal [facility] T4 Free Directon 04-03-2024 T4 FREE DIRECT 0.81 ng/dL Normal 0.76-1.46 [facility] Comment on above: Performed By: #### L 506.1000, L501.9520, L506.0400, L3300.6900 ####[facility] [address] [place], [address] Thyroid Stim Hormone (TSH)on 04-03-2024 TSH 3.310 uIU/mL Normal 0.358-3.740 [facility] Comment on above: Performed By: #### L 506.1000, L501.9520, L506.0400, L3300.6900 ####[facility] [address] [place], [address] Vitamin D,25 Hydroxyon 04-03 Vitamin D 25-OH 55.1 ng/mL Normal [facility] Comment on above: Result Comment: Ngozi min D 25(OH) Status Range Deficiency <20 ng/mL (50nmol/L) Insufficiency 20 - 30 ng/mL (50 - 75 nmol/L) Sufficiency 30 - 100 ng/mL (75 - 250 nmol/L) Toxicity >100 ng/mL (>250 nmol/L) Performed By: #### L 506.1000, L501.9520, L506.0400, L3300.6900 ####[facility] [address] 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 She also wants to go to [place] in October 2024 and wants to know [...] 37 live - full term Male epidural [facility] vernell Magaly Daily Delivery Date: 09/23/22 Last [...] Depression, unspecified (more content not included)... Normal [facility] EMERGENCY REPORTon 4 EMERGENCY REPORT [facility] EMERGENCY ROOM REPORT NAME ACCOUNT SEX AGE ADMIT DISCHARGE PT MED. RECORD# NUMBER DATE DATE TYPE PATTI [id number] F 06/19/23 06/19/23 3 GRANT Reyes [id number] ROOM: ER DATE OF : 2000 DICTATING [...] Yudy Matthews DO 06/19/23 09:36 JOB #: [id number] Transcribed By: am 06/20/23 07:05 Electronically signed by: Dr. Yudy Matthews DO 06/30/23 08:36 Page 2 of 2 GRANT ARMSTRONG Emergency Room Report Normal [facility] EMERGENCY REPORT [facility] EMERGENCY ROOM REPORT NAME ACCOUNT SEX AGE ADMIT DISCHARGE PT MED. RECORD# NUMBER DATE DATE TYPE PATTI [id number] F 06/19/23 06/19/23 3 GRANT Reyes [id number] ROOM: ER DATE OF : 2000 DICTATING [...] is to push clear fluids, cough medicine pdkz-lnn-adwguai as needed. She is to followup with primary care physician in 3 to 5 days as needed, sooner if worse or return. Dictated By: Yudy Matthews DO 06/19/23 10:00 JOB #: [id number] Transcribed By: am 06/20/23 07:17 Electronically signed by: Dr. Yudy Matthews, 06/30/23 08:36 Page 1 of 1 GRANT ARMSTRONG Emergency Room Report Normal [facility] BMP with eGFRon 06-19-2023 AGE 23 years Normal [facility] Comment on above: Performed By: #### 2 55437 #### [facility],[address] [place] [address] Anion gap [Moles/Vol] 16 mmol/L Normal 10 - 20 [facility] Comment on above: Performed By: #### 2 00521 #### [facility],[address] [place] [address] BMP with eGFR Normal [facility] Comment on above: Result Comment: BASI C METABOLIC PANEL Performed By: #### 2 76929 #### [facility],[address] [place] [address] Calcium [Mass/Vol] 8.9 mg/dL Normal 8.5 - 10.1 [facility] Comment on above: Performed By: #### 2 75166 #### [facility],[address] [place] [address] Chloride [Moles/Vol] 100 mmol/L Normal 98 - 107 [facility] Comment on above: Performed By: #### 2 07942 #### [facility],[address] [place] [address] CO2 [Moles/Vol] 22.4 mmol/L Normal 21.0 - 32.0 [facility] Comment on above: Performed By: #### 2 76701 #### [facility],[address] [place] [address] Creatinine [Mass/Vol] 0.72 mg/dL Normal 0.55 - 1.02 [facility] Comment on above: Performed By: #### 2 44495 #### [facility],[address] [place] [address] GFR/1.73 sq M.predicted among non-blacks MDRD (S/P/Bld) [Vol rate/Area] mL/min/{1.73_m2} Normal 60 - 999 [facility] Comment on above: Performed By: #### 2 56299 #### [facility],[address] [place] [address] Result Comment: ACCO RDING TO THE NATIONAL KIDNEY DISEASE EDUCATION PROGRAM(NKDE), A NORMAL eGFR IS A VALUE GREATER THAN OR EQUAL TO 60 ML/MIN/1.73 SQ METERS. CHRONIC KIDNEY DISEASE: <60mL/MIN/1.73 SQ METERS KIDNEY FAILURE: <15mL/MIN/1.73 SQ METERS THIS TEST SHOULD ONLY BE USED FOR PATIENTS 18 YEARS OF AGE AND OLDER. Glucose [Mass/Vol] 99 mg/dL Normal 74 - 106 [facility] Comment on above: Performed By: #### 2 [address] #### [place] [address] Potassium [Moles/Vol] 3.6 mmol/L Normal 3.5 - 5.1 [facility] Comment on above: Performed By: #### 2 76222 #### [place] [address] Sodium [Moles/Vol] 135 mmol/L Low 136 - 145 [facility] Comment on above: Performed By: #### 2 20548 #### [place] [address] Urea nitrogen [Mass/Vol] 10 mg/dL Normal 7 - 18 [facility] Comment on above: Performed By: #### 2 77603 #### [place] [id number] CBC + DIFFon 06-19-2023 Baso # 0.00 [id number]/UL Normal 0.00 - 0.10 [facility] Comment on above: Performed By: #### 2 [address]481 #### [place] [id number] Basophils/100 WBC (Bld) 0.3 % Normal 0.0 - 2.0 [facility] Comment on above: Performed By: #### 2 80426 #### [facility],[address] [place] [address] CBC + DIFF Normal [facility] Comment on above: Result Comment: CBC- COMPLETE BLOOD COUNT Performed By: #### 2 [id number] #### [facility],[address] [place] [address] EO # 0.00 x10EE3/UL Normal 0.00 - 0.50 [facility] Comment on above: Performed By: #### 2 [id number] #### [facility],[address] [place] [address] Eosinophils/100 WBC (Bld) 0.0 % Normal 0.0 - 7.0 [facility] Comment on above: Performed By: #### 2 [id number] #### [facility],[address] [place] [address] Erythrocyte distribution width (RBC) [Ratio] 12.7 % Normal 12.0 - 15.6 [facility] Comment on above: Performed By: #### 2 44085 #### [facility],[address] [place] [address] Hematocrit (Bld) [Volume fraction] 38.0 % Normal 34.0 - 46.0 [facility] Comment on above: Performed By: #### 2 17234 #### [facility],[address] [place] [address] Hemoglobin (Bld) [Mass/Vol] 12.7 g/dL Normal 12.0 - 16.0 [facility] Comment on above: Performed By: #### 2 90989 #### [facility],[address] [place] [address] Lymph # 0.40 x10EE3/UL Low 0.80 - 2.80 [facility] Comment on above: Performed By: #### 2 74549 #### [facility],[address] [place] [address] Lymphocytes/100 WBC (Bld) 5.4 % Low 20.0 - 45.0 [facility] Comment on above: Performed By: #### 2 46936 #### [facility],[address] [place] [address] MANUAL DIFF N/A Normal [facility] Comment on above: Performed By: #### 2 22598 #### [facility],[address] [place] [address] MCH (RBC) [Entitic mass] 31 pg Normal 27 - 33 [facility] Comment on above: Performed By: #### 2 59146 #### [facility],[address] [place] [address] MCHC 34 X10 3 Normal 32 - 36 [facility] Comment on above: Performed By: #### 2 03338 #### [facility],[address] [place] [address] MCV (RBC) [Entitic vol] 91 fL Normal 80 - 99 [facility] Comment on above: Performed By: #### 2 69340 #### [facility],[address] [place] [address] [place] # 0.90 x10EE3/UL Normal 0.20 - 1.00 [facility] Comment on above: Performed By: #### 2 38116 #### [facility],[address] [place] [address] MONOS % 12.8 % High 0.0 - 10.0 [facility] Comment on above: Performed By: #### 2 19809 #### [facility],[address] [place], [place] [id number] Morphology Ko (Bld) [Interp] N/A Normal [facility] Comment on above: Result Comment: {CD] Performed By: #### 2 82838 #### [facility],[address] [place] [address] Neut # 6.00 x10EE3/UL Normal 1.50 - 7.10 [facility] Comment on above: Performed By: #### 2 40163 #### [facility],[address] [place] [address] Neutrophils/100 WBC (Bld) 81.5 % High 46.0 - 76.0 [facility] Comment on above: Performed By: #### 2 68272 #### [facility],[address] [place] [address] PLATELET 213 x10EE3/UL Normal 150 - 450 [facility] Comment on above: Performed By: #### 2 40910 #### [facility],[address] [place] [address] Platelet mean volume (Bld) [Entitic vol] 9.1 fL Normal 6.6 - 10.5 [facility] Comment on above: Result Comment: AUTO MATED DIFFERENTIAL Performed By: #### 2 97043 #### [facility],[address] [place] [address] RBC 4.18 x 10EE6/UL Normal 4.10 - 5.30 [facility] Comment on above: Performed By: #### 2 74708 #### [facility],[address] [place] [address] WBC 7.3 x 10EE3/UL Normal 4.5 - 10.8 [facility] Comment on above: Performed By: #### 2 16229 #### [facility],[address] [place] [address] CHEST 2 VIEWSon 06-19-2023 CHEST 2 VIEWS [place] [address] Patient: GRANT ARMSTRONG Phone#: : [phone] Age: 23 Gender: F Pt. Type: ER Account: [id number] Location: [facility] Ordering: YUDY MATTHEWS Exam Date: 06/19/2023/9:13 Family Phys: Charge Code: [id number] Physician: [place] Order #: [id number] Dose#: PROCEDURE: X-RAY CHEST 2 VIEWS COMPARISON: [...] Orellana MD on 06/19/2023 at 16:39 Normal [facility] CORONAVIRUS (SARS) ANTIGEN T ESTon 06-19-2023 EXTERNAL QC DONE? YES Normal [facility] Comment on above: Performed By: #### 2 32652 #### [facility],[address] [place] [address] INTERNAL CONTROL PASS Normal [facility] Comment on above: Performed By: #### 2 35386 #### [facility],[address] [place] [address] SARS ANTIGEN Negative Normal NORMAL: NEGATIVE [facility] Comment on above: Performed By: #### 2 08442 #### [facility],[address] [place], [place] [id number] SEND TO ? YES Normal [facility] Comment on above: Result Comment: SARS -CoV-2 THIS TEST IS BEING USED UNDER THE FDA EUA PROCEDURE. THIS ASSAY HAS BEEN VALIDATED AT [facility] FOR USE WITH NASAL AND NASOPHARYNGEAL [...] PUBLIC HEALTH AUTHORITIES. Performed By: #### 2 06143 #### [address] [address] CULT STREP REFLEX ONLYon CULT STREP REFLEX ONLY CULT STREP REFLEX ONLY _REFLEX STREP SCREEN CULTURE ONLY_ 06/22/23.1006.DNP.COMPL ETE Normal [facility] Comment on above: Performed By: #### 2 71668 #### [address] [address] INFLUENZA VIRUS RAPID A/Bon 06-19-2023 INFLUENZA VIRUS [...] READ BACK BY LUIS RA 0955 Normal [facility] Comment on above: Performed By: #### 2 97935 #### [facility],[address] [place] [address] RAPID STREPon 06-19-2023 S. pyogenes Ag IA Ql (Unsp spec) Rapid Strep NEG:GRP A STREP INTERNAL QC PASS EXTERNAL QC DONE? YES [facility] Comment on above: Performed By: #### 2 50495 #### [facility],[address] [place] [address] RSVon 06-19-2023 RSV RSV NEGATIVE TEST INTENDED FOR PATIENTS UNDER 5 YEARS INTERNAL NEG QC PASS INTERNAL POS QC PASS EXTERNAL QC DONE? 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 [facility] Comment on above: The Pap smear is a s creening test designed to aid in thedetection of premalignant and malignant conditions of theuterine cervix. It is not a diagnostic procedure andshould not be used as the sole means of detecting cervicalcancer. Both false-positive and false-negative reports dooccur. Laboratory - CytologyOrdered By: Faustina Elias on 12-23-2022 Hair Or Beauty Salon Manager Cyto stain Nom (Cvx/Vag) [ID] Comment . [facility] Comment on above: Alvaro Ricci, Cytotec hnologist (ASCP) Laboratory - Miscellaneous t estsOrdered By: Faustina Elias on 12-23-2022 Service comment (Unsp spec) [Interp] Comment . [facility] Comment on above: This liquid based Th inPrep(R) pap test was screened withthe use of an image guided system. Service comment (Unsp spec) [Interp] . . [facility] No Panel InformationOrdered By: Faustina Elias on 12-23-2022 Human Papillomavirus Screen Comment . [facility] Comment on above: The HPV DNA reflex c rima were not met with this specimenresult therefore, no HPV testing was performed.Performed at: [address] [id number] Director: Lise Chaparro MD, Phone: [phone] Pathology report final diagnosis Narrative Comment . [facility] Comment on above: NEGATIVE FOR INTRAEP ITHELIAL LESION OR MALIGNANCY. Cervical or vagninal specime n microscopic examination by cytology stain (reported asOrdered By: Faustina Elias on 11-11-2022 Cytology report Cyto stain Doc (Cvx/Vag) Comment . [facility] Comment on above: The Pap smear is a s creening test designed to aid in thedetection of premalignant and malignant conditions of theuterine cervix. It is not a diagnostic procedure andshould not be used as the sole means of detecting cervicalcancer. Both false-positive and false-negative reports dooccur. Laboratory - CytologyOrdered By: Faustina Elias on 11-11-2022 Hair Or Beauty Salon Manager Cyto stain Nom (Cvx/Vag) [ID] Comment . [facility] Comment on above: Jenny garcia, Bus Mechanic (ASCP) Recommended follow-up Cyto stain Nom (Cvx/Vag) Comment . [facility] Comment on above: Suggest follow up as clinically appropriate. Laboratory - Miscellaneous t estsOrdered By: Faustina Elias on 11-11-2022 Service comment (Unsp spec) [Interp] Comment . [facility] Comment on above: This liquid based Th inPrep(R) pap test was screened withthe use of an image guided system. Service comment (Unsp spec) [Interp] . . [facility] No Panel InformationOrdered By: Faustina Elias on 11-11-2022 Human Papillomavirus Screen Comment . [facility] Comment on above: The HPV DNA reflex c rima were not met with this specimenresult therefore, no HPV testing was performed.Performed at: [address] [id number] Director: Lise Chaparro MD, Phone: [phone] Pap Smear Specimen Adequacy Comment . [facility] Comment on above: Specimen processed a nd examined but unsatisfactory for evaluation ofepithelial abnormality because of insufficient cellularity. Pathology report final diagnosis Narrative Comment . [facility] Comment on above: UNSATISFACTORY FOR E VALUATION. Absolute lymphocyte countOrd ered By: Dr. Carr on 09-23-2022 Lymphocytes Auto (Unsp spec) [#/Vol] 1.23 10*3/uL 0.83-4.51 [facility] Basophil percentageOrdered B y: Dr. Carr on 09-23-2022 Basophils/100 WBC (Bld) 0.2 % 0-[address] [facility] Eosinophils/100 WBC (Bld) 1.1 % 0-5 [facility] Neutrophils (Bld) [#/Vol] 9.8 10*3/uL 2.0-7.7 [facility] Neutrophils/100 WBC (Bld) 79.2 % 47-70 [facility] WBC (Bld) [#/Vol] 12.3 10*3/uL 4.4-11.0 [facility] Blood erythrocytes count (nu mber/volume)Ordered By: Dr. Carr on 09-23-2022 RBC (Bld) [#/Vol] 4.01 10*6/uL 4.2-5.4 [facility] Blood hemoglobin measurement (mass/volume)Ordered By: Dr. Carr on 09-23-2022 Hemoglobin (Bld) [Mass/Vol] 12.9 g/dL 12.0-15.0 [facility] Blood lymphocytes/100 leukoc ytesOrdered By: Dr. Carr on 09-23-2022 Lymphocytes/100 WBC (Bld) 10.0 % 19-41 [facility] Blood monocytes/100 leukocyt esOrdered By: Dr. Carr on 09-23-2022 Monocytes/100 WBC (Bld) 8.9 % 0-10 [facility] Blood platelet mean volumeOr dered By: Dr. Carr on 09-23-2022 Platelet mean volume (Bld) [Entitic vol] 12.5 fL 6.2-12.0 [facility] Determination of erythrocyte mean corpuscular volume (MCV)Ordered By: Dr. Carr on 09-23-2022 MCV (RBC) [Entitic vol] 94.5 fL 81-99 [facility] Hematocrit Auto (Bld) [Volum e fraction]Ordered By: Dr. Carr on 09-23-2022 Hematocrit (Bld) [Volume fraction] 37.9 % 37-47 [facility] Laboratory - Hematology and Cell countsOrdered By: Dr. Carr on 09-23-2022 Erythrocyte distribution width (RBC) [Entitic vol] 43.7 fL 35.1-43.9 [facility] Erythrocyte distribution width (RBC) [Ratio] 12.5 % 11.6-14.6 [facility] Immature granulocytes/100 WBC (Bld) 0.600 % 0.0-0.9 [facility] Comment on above: IG% - Immature Granu locytes (promyelocytes, myelocytes and metamyelocytes) > 1% indicates that a LEFT SHIFT is Present. MCH (RBC) [Entitic mass] 32.2 pg 27.0-32.0 [facility] Nucleated RBC/100 WBC (Bld) [Ratio] 0 % 0-5 [facility] MCHC Auto (RBC) [Mass/Vol]Or dered By: Dr. Carr on 09-23-2022 MCHC (RBC) [Mass/Vol] 34.0 g/dL 32-36 [facility] No Panel InformationOrdered By: Dr. Jones on 09-23-2022 Vaginal Amniotic Fluid Detection Positive Negative [facility] Comment on above: Amniotic fluid prese nt indicates rupture of Membranes. RESULTS CALLED TO EUGENIA 09/23/22 0819 Harley Lopez.REPORT READ BACK BY SAME . Platelets bldOrdered By: Dr. Carr on 09-23-2022 Platelets (Bld) [#/Vol] 175 10*3/uL 150-450 [facility] Serum Treponema species anti body detectionOrdered By: Dr. Carr on 09-23-2022 Treponema sp Ab Ql (S) Non-Reactive [facility] Absolute lymphocyte countOrd ered By: Imani Sullivan on 09-21-2022 Lymphocytes Auto (Unsp spec) [#/Vol] 1.40 10*3/uL 0.83-4.51 [facility] Basophil percentageOrdered B y: Imani Sullivan on 09-21-2022 Basophils/100 WBC (Bld) 0.2 % 0-1 [facility] Bilirubin [Mass/Vol] 0.20 mg/dL 0.20-1.00 [facility] Comment on above: For patients on eltr ombopag therapy, use of Dimension [place] TBIL is not recommended. Chloride [Moles/Vol] 106 mmol/L 98-107 [facility] Eosinophils/100 WBC (Bld) 0.7 % 0-5 [facility] Glucose [Mass/Vol] 93 mg/dL 74-106 [facility] Neutrophils (Bld) [#/Vol] 9.5 10*3/uL 2.0-7.7 [facility] Neutrophils/100 WBC (Bld) 77.4 % 47-70 [facility] Potassium [Moles/Vol] 4.1 mmol/L 3.5-5.1 [facility] Protein [Mass/Vol] 6.4 g/dL 6.4-8.2 [facility] Sodium [Moles/Vol] 134 mmol/L 136-145 [facility] WBC (Bld) [#/Vol] 12.3 10*3/uL 4.4-11.0 [facility] Blood erythrocytes count (nu mber/volume)Ordered By: Imani Sullivan on 09-21-2022 RBC (Bld) [#/Vol] 3.79 10*6/uL 4.2-5.4 [facility] Blood hemoglobin measurement (mass/volume)Ordered By: Imani Sullivan on 09-21-2022 Hemoglobin (Bld) [Mass/Vol] 12.4 g/dL 12.0-15.0 [facility] Blood lymphocytes/100 leukoc ytesOrdered By: Imani Sullivan on 09-21-2022 Lymphocytes/100 WBC (Bld) 11.4 % 19-41 [facility] Blood monocytes/100 leukocyt esOrdered By: Imani Sullivan on 09-21-2022 Monocytes/100 WBC (Bld) 9.8 % 0-10 [facility] Blood platelet mean volumeOr dered By: Imani Sullivan on 09-21-2022 Platelet mean volume (Bld) [Entitic vol] 12.6 fL 6.2-12.0 [facility] Determination of erythrocyte mean corpuscular volume (MCV)Ordered By: Imani Sullivan on 09-21-2022 MCV (RBC) [Entitic vol] 96.3 fL 81-99 [facility] Hematocrit Auto (Bld) [Volum e fraction]Ordered By: Imani Sullivan on 09-21-2022 Hematocrit (Bld) [Volume fraction] 36.5 % 37-47 [facility] Laboratory - Chemistry and C hemistry - challengeOrdered By: Imani Sullivan on 09-21-2022 ALP [Catalytic activity/Vol] 127 U/L 45-117 [facility] ALT [Catalytic activity/Vol] 29 U/L 13-56 [facility] CO2 [Moles/Vol] 23.0 mmol/L 21.0-32.0 [facility] Globulin (S) [Mass/Vol] 3.6 g/dL 2.2-4.2 [facility] Urea nitrogen/Creatinine [Mass ratio] 20.7 mg/mg 10-20 [facility] Laboratory - Chemistry and C hemistry - challengeon 09-21-2022 Glucose Ql (U) Negative [facility] Laboratory - Hematology and Cell countsOrdered By: Imani Sullivan on 09-21-2022 Erythrocyte distribution width (RBC) [Entitic vol] 43.7 fL 35.1-43.9 [facility] Erythrocyte distribution width (RBC) [Ratio] 12.5 % 11.6-14.6 [facility] Immature granulocytes/100 WBC (Bld) 0.500 % 0.0-0.9 [facility] Comment on above: IG% - Immature Granu locytes (promyelocytes, myelocytes and metamyelocytes) > 1% indicates that a LEFT SHIFT is Present. MCH (RBC) [Entitic mass] 32.7 pg 27.0-32.0 [facility] Nucleated RBC/100 WBC (Bld) [Ratio] 0 % 0-5 [facility] Laboratory - Urinalysison Protein Ql (U) 1+ [facility] MCHC Auto (RBC) [Mass/Vol]Or dered By: Imani Sullivan on 09-21-2022 MCHC (RBC) [Mass/Vol] 34.0 g/dL 32-36 [facility] No Panel InformationOrdered By: Imani Sullivan on 09-21-2022 Estimated GFR (MDRD) Amer 150 mL/min >60 [facility] Comment on above: GFR Calc Estimated GFR (MDRD) Non-Af Amer 124 mL/min >60 [facility] Comment on above: Non- GFR Calc Platelets bldOrdered By: Rosemary Sullivan on 09-21-2022 Platelets (Bld) [#/Vol] 199 10*3/uL 150-450 [facility] Serum or plasma albumin ximena urement (mass/volume)Ordered By: Imani Sullivan on 09-21-2022 Albumin [Mass/Vol] 2.8 g/dL 3.2-5.0 [facility] Serum or plasma albumin/glob ulin mass ratioOrdered By: Imani Sullivan on 09-21-2022 Albumin/Globulin [Mass ratio] 0.8 {ratio} 0.9-2.4 [facility] Serum or plasma calcium ximena urement (mass/volume)Ordered By: Imani Sullivan on 09-21-2022 Calcium [Mass/Vol] 9.1 mg/dL 8.5-10.1 [facility] Serum or plasma creatinine m easurement (mass/volume)Ordered By: Imani Sullivan on 09-21-2022 Creatinine [Mass/Vol] 0.63 mg/dL 0.55-1.02 [facility] Comment on above: The validity of the calculated GFR & GFRAA in patients over 70 years has not been determined. Clinical correlation is essential. Serum or plasma urea nitroge n measurement (mass/volume)Ordered By: Imani Sullivan on 09-21-2022 Urea nitrogen [Mass/Vol] 13 mg/dL 7-18 [facility] Thin prep Papanicolaou smear with manual screeningOrdered By: Imani Sullivan on 09-21-2022 Thin prep Papanicolaou smear with manual screening 22 U/L 15-37 [facility] Thin prep Papanicolaou smear with manual screening 5 5-15 [facility] Urine creatinine measurement (mass/volume)Ordered By: Imanicrystal Sullivan on 09-21-2022 Creatinine (U) [Mass/Vol] 273.00 mg/dL NO RANGE EST. [facility] Urine protein measurement (m ass/volume)Ordered By: Imani Sullivan on 09-21-2022 Protein (U) [Mass/Vol] 50.6 mg/dL 0.0-11.8 [facility] Urine protein/creatinine mas s ratioOrdered By: Imani Sullivan on 09-21-2022 Protein/Creatinine (U) [Mass ratio] 185 mg/g CRE 0-200 [facility] Culture, urineOrdered By: Baljit Begum on 09-17-2022 Bacteria identified Cx Nom (U) Positive [facility] Basophil percentageOrdered B y: Sharri Begum on 09-15-2022 Basophil percentage 10-25 SEEN /hpf 0-5 [facility] WBC (Bld) [#/Vol] 10.7 10*3/uL 4.4-11.0 [facility] Bilirubin Test strip Ql (U)O rdered By: Sharri Begum on 09-15-2022 Bilirubin Ql (U) Negative Negative [facility] Blood erythrocytes count (nu mber/volume)Ordered By: Sharri Begum on 09-15-2022 RBC (Bld) [#/Vol] 3.83 10*6/uL 4.2-5.4 [facility] Blood hemoglobin measurement (mass/volume)Ordered By: Sharri Begum on 09-15-2022 Hemoglobin (Bld) [Mass/Vol] 12.4 g/dL 12.0-15.0 [facility] Blood platelet mean volumeOr dered By: Sharri Begum on 09-15-2022 Platelet mean volume (Bld) [Entitic vol] 12.4 fL 6.2-12.0 [facility] Culture, urineOrdered By: Baljit Begum on 09-15-2022 Bacteria identified Cx Nom (U) Positive [facility] Determination of erythrocyte mean corpuscular volume (MCV)Ordered By: Sharri Begum on 09-15-2022 MCV (RBC) [Entitic vol] 95.6 fL 81-99 [facility] Hematocrit Auto (Bld) [Volum e fraction]Ordered By: Sharri Begum on 09-15-2022 Hematocrit (Bld) [Volume fraction] 36.6 % 37-47 [facility] Ketones Test strip Ql (U)Ord ered By: Sharri Begum on 09-15-2022 Ketones Ql (U) Negative Negative [facility] Laboratory - Chemistry and C hemistry - challengeOrdered By: Sharri Begum on 09-15-2022 ALT [Catalytic activity/Vol] 22 U/L 13-56 [facility] Laboratory - Hematology and Cell countsOrdered By: Sharri Begum on 09-15-2022 Erythrocyte distribution width (RBC) [Entitic vol] 42.9 fL 35.1-43.9 [facility] Erythrocyte distribution width (RBC) [Ratio] 12.4 % 11.6-14.6 [facility] MCH (RBC) [Entitic mass] 32.4 pg 27.0-32.0 [facility] MCHC Auto (RBC) [Mass/Vol]Or dered By: Sharri Begum on 09-15-2022 MCHC (RBC) [Mass/Vol] 33.9 g/dL 32-36 [facility] Mucus LM Ql (Urine sed)Order ed By: Sharri Begum on 09-15-2022 Mucus Ql (Urine sed) 0 SEEN /hpf [facility] Nitrite Test strip Ql (U)Ord ered By: Sharri Begum on 09-15-2022 Nitrite Ql (U) Negative Negative [facility] No Panel InformationOrdered By: Sharri Bgeum on 09-15-2022 Miscellaneous Test See comment [facility] Comment on above: TEST RESULT LIMITSBi le Acids, Fractionated LCMS Ursodeoxycholic Acids <0.10 umol/L Reference Range: All Ages: <1.9 Cholic Acids 0.30 umol/L Reference Range: All Ages: <2.2 Chenodeoxycholic Acids 0.60 umol/L Reference Range: All Ages: <5.8 Deoxycholic Acids 1.1 umol/L Reference Range: All Ages: <3.3 Total Bile Acids 2.0 umol/LThis test was developed and its performance characteristicsdetermined by [employer]. It has not been cleared or approvedby the Food and Drug Administration.Reference Range:All Ages: <9.2 TESTING PERFORMED AT [facility]. ORIGINAL REPORT ON FILE IN LAB CONTAINS ADDITIONAL TEST SITE INFORMATION. Estimated Creatinine Clearance Calc 108.36 ml/min [facility] Estimated GFR (MDRD) Amer 164 mL/min >60 [facility] Comment on above: GFR Calc Estimated GFR (MDRD) Non-Af Amer 136 mL/min >60 [facility] Comment on above: Non- GFR Calc Platelets bldOrdered By: Luis Begum on 09-15-2022 Platelets (Bld) [#/Vol] 194 10*3/uL 150-450 [facility] Protein Test strip Ql (U)Ord ered By: Sharri Begum on 09-15-2022 Protein Ql (U) 15 mg/dl Negative [facility] Serum or plasma creatinine m easurement (mass/volume)Ordered By: Sharri Begum on 09-15-2022 Creatinine [Mass/Vol] 0.58 mg/dL 0.55-1.02 [facility] Comment on above: The validity of the calculated GFR & GFRAA in patients over 70 years has not been determined. Clinical correlation is essential. Serum or plasma uric acid me asurement (mass/volume)Ordered By: Sharri Begum on 09-15-2022 Urate [Mass/Vol] 6.3 mg/dL 2.6-6.0 [facility] Comment on above: The drugs N-Acetylcy steine and Metamizole may falsely depress this assay. Squamous epithelial cells de tection in urine sediment by light microscopyOrdered By: Sharri Begum on 09-15-2022 Epithelial cells.squamous LM Ql (Urine sed) 10-25 SEEN /hpf 5-10 [facility] Thin prep Papanicolaou smear with manual screeningOrdered By: Sharri Begum on 09-15-2022 Thin prep Papanicolaou smear with manual screening 15 U/L 15-37 [facility] Urine blood detectionOrdered By: Sharri Begum on 09-15-2022 RBC Ql (U) Negative Negative [facility] RBC Ql (U) 0 SEEN /hpf 0-5 [facility] Urine clarityOrdered By: Luis Begum on 09-15-2022 Clarity (U) Sl. Cloudy Clear [facility] Urine color determinationOrd ered By: Sharri Begum on 09-15-2022 Color (U) Yellow Yellow [facility] Urine creatinine measurement (mass/volume)Ordered By: Sharri Begum on 09-15-2022 Creatinine (U) [Mass/Vol] 70.30 mg/dL NO RANGE EST. [facility] Urine glucose detectionOrder ed By: Sharri Begum on 09-15-2022 Glucose Ql (U) Normal mg/dl Normal [facility] Urine leukocyte esterase det ection by dipstickOrdered By: Sharri Begum on 09-15-2022 Leukocyte esterase Test strip Ql (U) 500 /ul Negative [facility] Urine pHOrdered By: Sharri enriquez on 09-15-2022 pH (U) 6.0 [pH] 5.0 - 8.0 [facility] Urine protein measurement (m ass/volume)Ordered By: Sharri Begum on 09-15-2022 Protein (U) [Mass/Vol] 17.2 mg/dL 0.0-11.8 [facility] Urine protein/creatinine mas s ratioOrdered By: Sharri Begum on 09-15-2022 Protein/Creatinine (U) [Mass ratio] 245 mg/g CRE 0-200 [facility] Urine sediment bacteria coun t by microscopy (number/high power field)Ordered By: Sharri Begum on 09-15-2022 Bacteria LM.HPF (Urine sed) [#/Area] 1 /[HPF] None Seen [facility] Urine specific gravity measu rementOrdered By: Sharri Begum on 09-15-2022 Specific gravity (U) [Rel density] 1.015 1.002-1.030 [facility] Urobilinogen Auto test strip Ql (U)Ordered By: Sharri Begum on 09-15-2022 Urobilinogen Ql (U) Normal mg/dl Normal [facility] Basophil percentageOrdered B y: Dr. Carr on 09-14-2022 WBC (Bld) [#/Vol] 9.7 10*3/uL 4.4-11.0 [facility] Blood erythrocytes count (nu mber/volume)Ordered By: Dr. Carr on 09-14-2022 RBC (Bld) [#/Vol] 3.86 10*6/uL 4.2-5.4 [facility] Blood hemoglobin measurement (mass/volume)Ordered By: Dr. Carr on 09-14-2022 Hemoglobin (Bld) [Mass/Vol] 12.5 g/dL 12.0-15.0 [facility] Blood platelet mean volumeOr dered By: Dr. Carr on 09-14-2022 Platelet mean volume (Bld) [Entitic vol] 11.9 fL 6.2-12.0 [facility] Determination of erythrocyte mean corpuscular volume (MCV)Ordered By: Dr. Carr on 09-14-2022 MCV (RBC) [Entitic vol] 93.5 fL 81-99 [facility] Hematocrit Auto (Bld) [Volum e fraction]Ordered By: Dr. Carr on 09-14-2022 Hematocrit (Bld) [Volume fraction] 36.1 % 37-47 [facility] Laboratory - Chemistry and C hemistry - challengeOrdered By: Dr. Carr on 09-14-2022 ALT [Catalytic activity/Vol] 21 U/L 13-56 [facility] Laboratory - Chemistry and C hemistry - challengeon 09-14-2022 Glucose Ql (U) Negative [facility] Laboratory - Hematology and Cell countsOrdered By: Dr. Carr on 09-14-2022 Erythrocyte distribution width (RBC) [Entitic vol] 42.6 fL 35.1-43.9 [facility] Erythrocyte distribution width (RBC) [Ratio] 12.5 % 11.6-14.6 [facility] MCH (RBC) [Entitic mass] 32.4 pg 27.0-32.0 [facility] Laboratory - Urinalysison Protein Ql (U) [facility] [Mass/Vol]Or dered By: Dr. Carr on 09-14-2022 MCHC (RBC) [Mass/Vol] 34.6 g/dL 32-36 [facility] No Panel InformationOrdered By: Dr. Carr on 09-14-2022 Estimated Creatinine Clearance Calc 146.16 ml/min [facility] Estimated GFR (MDRD) Amer 233 mL/min >60 [facility] Comment on above: GFR Calc Estimated GFR (MDRD) Non-Af Amer 193 mL/min >60 [facility] Comment on above: Non- GFR Calc Platelets bldOrdered By: Dr. Carr on 09-14-2022 Platelets (Bld) [#/Vol] 190 10*3/uL 150-450 [facility] Serum or plasma creatinine m easurement (mass/volume)Ordered By: Dr. Carr on 09-14-2022 Creatinine [Mass/Vol] 0.43 mg/dL 0.55-1.02 [facility] Comment on above: The validity of the calculated GFR & GFRAA in patients over 70 years has not been determined. Clinical correlation is essential. Serum or plasma uric acid me asurement (mass/volume)Ordered By: Dr. Carr on 09-14-2022 Urate [Mass/Vol] 6.0 mg/dL 2.6-6.0 [facility] Comment on above: The drugs N-Acetylcy steine and Metamizole may falsely depress this assay. Thin prep Papanicolaou smear with manual screeningOrdered By: Dr. Carr on 09-14-2022 Thin prep Papanicolaou smear with manual screening 12 U/L 15-37 [facility] Urine creatinine measurement (mass/volume)Ordered By: Dr. Carr on 09-14-2022 Creatinine (U) [Mass/Vol] 105.00 mg/dL NO RANGE EST. [facility] Urine protein measurement (m ass/volume)Ordered By: Dr. Carr on 09-14-2022 Protein (U) [Mass/Vol] 20.9 mg/dL 0.0-11.8 [facility] Urine protein/creatinine mas s ratioOrdered By: Dr. Carr on 09-14-2022 Protein/Creatinine (U) [Mass ratio] 199 mg/g CRE 0-200 [facility] No Panel InformationOrdered By: Dr. Carr on 09-13-2022 Group B Streptococcus Culture Group B Beta Streptococcus is not isolated. [facility] No Panel InformationOrdered By: Karyna Carr on 09-10-2022 Group B Streptococcus Culture Group B Beta Streptococcus is not isolated. [facility] Laboratory - Chemistry and C hemistry - challengeon 08-25-2022 Glucose Ql (U) Negative [facility] Laboratory - Urinalysison Protein Ql (U) Negative [facility] Laboratory - Chemistry and C hemistry - challengeon 08-12-2022 Glucose Ql (U) Negative [facility] Laboratory - Urinalysison Protein Ql (U) Negative [facility] Laboratory - Chemistry and C hemistry - challengeon 07-30-2022 Glucose Ql (U) Negative [facility] Laboratory - Urinalysison Protein Ql (U) Negative [facility] Laboratory - Chemistry and C hemistry - challengeon 07-16-2022 Glucose Ql (U) Negative [facility] Laboratory - Urinalysison Protein Ql (U) Negative [facility] Laboratory - Chemistry and C hemistry - challengeon 07-06-2022 Glucose Ql (U) Negative [facility] Laboratory - Urinalysison Protein Ql (U) Negative [facility] Culture, urineOrdered By: Dr Charity Carr on 07-05-2022 Bacteria identified Cx Nom (U) Gardnerella vaginalis [facility] Bilirubin Test strip Ql (U)O rdered By: Dr. Carr on 07-01-2022 Bilirubin Ql (U) Negative Negative [facility] Ketones Test strip Ql (U)Ord ered By: Dr. Carr on 07-01-2022 Ketones Ql (U) Negative Negative [facility] Nitrite Test strip Ql (U)Ord ered By: Dr. Carr on 07-01-2022 Nitrite Ql (U) Negative Negative [facility] Protein Test strip Ql (U)Ord ered By: Dr. Carr on 07-01-2022 Protein Ql (U) Negative Negative [facility] Urine blood detectionOrdered By: Dr. Carr on 07-01-2022 RBC Ql (U) Negative Negative [facility] Urine clarityOrdered By: Dr. Carr on 07-01-2022 Clarity (U) Clear Clear [facility] Urine color determinationOrd ered By: Dr. Carr on 07-01-2022 Color (U) Yellow Yellow [facility] Urine glucose detectionOrder ed By: Dr. Carr on 07-01-2022 Glucose Ql (U) Normal mg/dl Normal [facility] Urine leukocyte esterase det ection by dipstickOrdered By: Dr. Carr on 07-01-2022 Leukocyte esterase Test strip Ql (U) 500 /ul Negative [facility] Urine pHOrdered By: Dr. Stan perez on 07-01-2022 pH (U) 7.0 [pH] 5.0 - 8.0 [facility] Urine specific gravity measu rementOrdered By: Dr. Carr on 07-01-2022 Specific gravity (U) [Rel density] 1.005 1.002-1.030 [facility] Urobilinogen Auto test strip Ql (U)Ordered By: Dr. Carr on 07-01-2022 Urobilinogen Ql (U) Normal mg/dl Normal [facility] Absolute lymphocyte countOrd ered By: Dr. Jones on 06-22-2022 Lymphocytes Auto (Unsp spec) [#/Vol] 1.11 10*3/uL 0.83-4.51 [facility] Basophil percentageOrdered B y: Dr. Jones on 06-22-2022 Basophils/100 WBC (Bld) 0.2 % 0-1 [facility] Eosinophils/100 WBC (Bld) 1.2 % 0-5 [facility] Neutrophils (Bld) [#/Vol] 7.4 10*3/uL 2.0-7.7 [facility] Neutrophils/100 WBC (Bld) 78.7 % 47-70 [facility] WBC (Bld) [#/Vol] 9.4 10*3/uL 4.4-11.0 [facility] Blood erythrocytes count (nu mber/volume)Ordered By: Dr. Jones on 06-22-2022 RBC (Bld) [#/Vol] 3.97 10*6/uL 4.2-5.4 [facility] Blood hemoglobin measurement (mass/volume)Ordered By: Dr. Jones on 06-22-2022 Hemoglobin (Bld) [Mass/Vol] 12.5 g/dL 12.0-15.0 [facility] Blood lymphocytes/100 leukoc ytesOrdered By: Dr. Jones on 06-22-2022 Lymphocytes/100 WBC (Bld) 11.8 % 19-41 [facility] Blood monocytes/100 leukocyt esOrdered By: Dr. Jones on 06-22-2022 Monocytes/100 WBC (Bld) 7.5 % 0-[address] [facility] Blood platelet mean volumeOr dered By: Dr. Jones on 06-22-2022 Platelet mean volume (Bld) [Entitic vol] 10.5 fL 6.2-12.0 [facility] Determination of erythrocyte mean corpuscular volume (MCV)Ordered By: Dr. Jones on 06-22-2022 MCV (RBC) [Entitic vol] 95.7 fL 81-[address] [facility] Gestational diabetes screen 1-hour screen with 50g oral glucose loadOrdered By: Dr. Jones on 06-22-2022 Glucose 1 Hr post 50 g glucose PO [Mass/Vol] 115 mg/dL 70-140 [facility] HIV 1 and HIV-2 antibody ass ay with HIV-1 p24 antigen detectionOrdered By: Dr. Joens on 06-22-2022 HIV 1+2 Ab+HIV1 p24 Ag IA Ql Non-Reactive Nonreactive [facility] Hematocrit Auto (Bld) [Volum e fraction]Ordered By: Dr. Jones on 06-22-2022 Hematocrit (Bld) [Volume fraction] 38.0 % 37-47 [facility] Laboratory - Chemistry and C hemistry - challengeon 06-22-2022 Glucose Ql (U) Negative [facility] Laboratory - Hematology and Cell countsOrdered By: Dr. Jones on 06-22-2022 Erythrocyte distribution width (RBC) [Entitic vol] 43.9 fL 35.1-43.9 [facility] Erythrocyte distribution width (RBC) [Ratio] 12.4 % 11.6-14.6 [facility] Immature granulocytes/100 WBC (Bld) 0.600 % 0.0-0.9 [facility] Comment on above: IG% - Immature Granu locytes (promyelocytes, myelocytes and metamyelocytes) > 1% indicates that a LEFT SHIFT is Present. MCH (RBC) [Entitic mass] 31.5 pg 27.0-32.0 [facility] Nucleated RBC/100 WBC (Bld) [Ratio] 0 % 0-5 [facility] Laboratory - Urinalysison Protein Ql (U) Negative [facility] MCHC Auto (RBC) [Mass/Vol]Or dered By: Dr. Jones on 06-22-2022 MCHC (RBC) [Mass/Vol] 32.9 g/dL 32-36 [facility] Platelets bldOrdered By: Dr. Jones on 06-22-2022 Platelets (Bld) [#/Vol] 274 10*3/uL 150-450 [facility] Serum Treponema species anti body detectionOrdered By: Dr. Jones on 06-22-2022 Treponema sp Ab Ql (S) Non-Reactive [facility] Laboratory - Chemistry and C hemistry - challengeon 05-27-2022 Glucose Ql (U) Negative [facility] Laboratory - Urinalysison Protein Ql (U) Negative [facility] Laboratory - Chemistry and C hemistry - challengeon 04-28-2022 Glucose Ql (U) Negative [facility] Laboratory - Urinalysison Protein Ql (U) Negative [facility] Laboratory - Chemistry and C hemistry - challengeon 03-29-2022 Glucose Ql (U) Negative [facility] Laboratory - Urinalysison Protein Ql (U) Negative [facility] Culture, urineOrdered By: Dr Charity Jones on 03-13-2022 Bacteria identified Cx Nom (U) Positive [facility] Absolute lymphocyte countOrd ered By: Dr. Jones on 03-11-2022 Lymphocytes Auto (Unsp spec) [#/Vol] 1.32 10*3/uL 0.83-4.51 [facility] Basophil percentageOrdered B y: Dr. Jones on 03-11-2022 Basophils/100 WBC (Bld) 0.2 % 0-1 [facility] Eosinophils/100 WBC (Bld) 1.4 % 0-5 [facility] Neutrophils (Bld) [#/Vol] 7.0 10*3/uL 2.0-7.7 [facility] Neutrophils/100 WBC (Bld) 75.4 % 47-70 [facility] WBC (Bld) [#/Vol] 9.3 10*3/uL 4.4-11.0 [facility] Blood erythrocytes count (nu mber/volume)Ordered By: Dr. Jones on 03-11-2022 RBC (Bld) [#/Vol] 4.16 10*6/uL 4.2-5.4 [facility] Blood hemoglobin measurement (mass/volume)Ordered By: Dr. Jones on 03-11-2022 Hemoglobin (Bld) [Mass/Vol] 13.4 g/dL 12.0-15.0 [facility] Blood lymphocytes/100 leukoc ytesOrdered By: Dr. Jones on 03-11-2022 Lymphocytes/100 WBC (Bld) 14.2 % 19-41 [facility] Blood monocytes/100 leukocyt esOrdered By: Dr. Jones on 03-11-2022 Monocytes/100 WBC (Bld) 8.6 % 0-10 [facility] Blood platelet mean volumeOr dered By: Dr. Jones on 03-11-2022 Platelet mean volume (Bld) [Entitic vol] 10.7 fL 6.2-12.0 [facility] Cervical or vagninal specime n microscopic examination by cytology stain (reported asOrdered By: Dr. Jones on 03-11-2022 Cytology report Cyto stain Doc (Cvx/Vag) Comment . [facility] Comment on above: The Pap [...] rRNA SHANITA+probe Ql (Unsp spec) Negative Negative [facility] Determination of erythrocyte mean corpuscular volume (MCV)Ordered By: Dr. Jones on 03-11-2022 MCV (RBC) [Entitic vol] 91.6 fL 81-[address] [facility] HIV 1 and HIV-2 antibody ass ay with HIV-1 p24 antigen detectionOrdered By: Dr. Jones on 03-11-2022 HIV 1+2 Ab+HIV1 p24 Ag IA Ql Non-Reactive Nonreactive [facility] Hematocrit Auto (Bld) [Volum e fraction]Ordered By: Dr. Jones on 03-11-2022 Hematocrit (Bld) [Volume fraction] 38.1 % 37-47 [facility] Laboratory - CytologyOrdered By: Dr. Jones on 03-11-2022 Hair Or Beauty Salon Manager Cyto stain Nom (Cvx/Vag) [ID] Comment . [facility] Comment on above: Fariba Santos Cyto technologist Pathologist Cyto stain Nom (Cvx/Vag) [ID] Comment . [facility] Comment on above: Lise Chaparro MD, Pathologist Recommended follow-up Cyto stain Nom (Cvx/Vag) Comment . [facility] Comment on above: Suggest follow up as clinically appropriate. Laboratory - Drug toxicology Ordered By: Dr. Jones on 03-11-2022 Amphetamines Ql (U) Negative <1000 ng/mL [facility] Benzodiazepines Ql (U) Negative < 200 ng/mL [facility] Cannabinoids Screen Ql (U) Negative < 50 ng/mL [facility] Cocaine Ql (U) Negative < 300 ng/mL [facility] Opiates Ql (U) Negative < 300 ng/mL [facility] Laboratory - Hematology and Cell countsOrdered By: Dr. Jones on 03-11-2022 Erythrocyte distribution width (RBC) [Entitic vol] 40.9 fL 35.1-43.9 [facility] Erythrocyte distribution width (RBC) [Ratio] 12.2 % 11.6-14.6 [facility] Immature granulocytes/100 WBC (Bld) 0.200 % 0.0-0.9 [facility] Comment on above: IG% - Immature Granu locytes (promyelocytes, myelocytes and metamyelocytes) > 1% indicates that a LEFT SHIFT is Present. MCH (RBC) [Entitic mass] 32.2 pg 27.0-32.0 [facility] Nucleated RBC/100 WBC (Bld) [Ratio] 0 % 0-5 [facility] Laboratory - Microbiology an d Antimicrobial susceptibilityOrdered By: Dr. Jones on 03-11-2022 N. gonorrhoeae DNA SHANITA+probe Ql (Unsp spec) Negative Negative [facility] Comment on above: Performed at: [address] [id number] Director: Lise Chaparro MD, Phone: [phone] Laboratory - Miscellaneous t estsOrdered By: Dr. Jones on 03-11-2022 Service comment (Unsp spec) [Interp] Comment . [facility] Comment on above: This liquid based Th inPrep(R) pap test was screened withthe use of an image guided system. Service comment (Unsp spec) [Interp] . . [facility] MCHC Auto (RBC) [Mass/Vol]Or dered By: Dr. Jones on 03-11-2022 MCHC (RBC) [Mass/Vol] 35.2 g/dL 32-36 [facility] No Panel InformationOrdered By: Dr. Jones on 03-11-2022 Human Papillomavirus Screen Comment . [facility] Comment on above: See below for HPV te sting results. MDMA (Ecstasy) Screen Negative < 500 ng/mL [facility] Pathology report final diagnosis Narrative Comment . [facility] Comment on above: EPITHELIAL CELL ABNO RMALITY.ATYPICAL SQUAMOUS CELLS OF UNDETERMINED SIGNIFICANCE (ASC-US). R87.610 Urine Barbiturates Screen Negative < 200 ng/mL [facility] Urine Drug Screen Comment [facility] Comment on above: CONFIRMATORY TESTING [...] Urine Methadone Screen Negative < 300 ng/mL [facility] Hepatitis B Surface Antigen Non-Reactive Nonreactive [facility] Hepatitis C Antibody Non-Reactive Nonreactive [facility] Comment on above: Non Reactive: < 0.8 Equivocal: >/= 0.8 to < 1.0 Reactive: >/= 1.0The CDC recommends that a reactive/equivocal HCV antibody result be followed up by the HCV Nucleic Acid Amplificationtest (229172) Miscellaneous Test Comment MAILED SPECIMEN [facility] Rubella IgG Antibody Reactive Nonreactive [facility] Comment on above: Antibody Results Int erpretation of Immune Status Non Reactive Presumed Non-Immune Equivocal Equivocal Reactive Presumed Immune Platelets bldOrdered By: Dr. Jones on 03-11-2022 Platelets (Bld) [#/Vol] 334 10*3/uL 150-450 [facility] Serum Treponema species anti body detectionOrdered By: Dr. Jones on 03-11-2022 Treponema sp Ab Ql (S) Non-Reactive [facility] Urine phencyclidine (PCP) de tectionOrdered By: Dr. Jones on 03-11-2022 Phencyclidine Ql (U) Negative < 25 ng/mL [facility] Culture, urine Bacteria identified Cx Nom (U) Positive [facility] Work Phone: Vital Signs Date Time Vital Sign Value Performing Clinician Faci lity 01-16-2025 13:45-0400 Body height 154.94 cm No Primary Care Physician [facility] 01-16-2025 13:45-0400 Body mass index (BMI) [Ratio] 39.6 kg/m2 No Primary Care Physician [facility] 01-16-2025 13:45-0400 Body weight 95.25 kg No Primary Care Physician [facility] 01-16-2025 13:45-0400 Diastolic blood pressure 90 mm[Hg] No Primary Care Physician [facility] 01-16-2025 13:45-0400 Systolic blood pressure 125 mm[Hg] No Primary Care Physician [facility] 01-07-2025 14:27-0400 Body height 154.94 cm No Primary Care Physician [facility] 01-07-2025 14:27-0400 Body mass index (BMI) [Ratio] 38.3 kg/m2 No Primary Care Physician [facility] 01-07-2025 14:27-0400 Body weight 92.13 kg No Primary Care Physician [facility] 01-07-2025 14:27-0400 Diastolic blood pressure 81 mm[Hg] No Primary Care Physician [facility] 01-07-2025 14:27-0400 Systolic blood pressure 112 mm[Hg] No Primary Care Physician [facility] 12-25-2024 13:55-0400 Body height 154.94 cm No Primary Care Physician [facility] 12-25-2024 13:55-0400 Body mass index (BMI) [Ratio] 37.4 kg/m2 No Primary Care Physician [facility] 12-25-2024 13:55-0400 Body weight 89.81 kg No Primary Care Physician [facility] 12-25-2024 13:55-0400 Diastolic blood pressure 83 mm[Hg] No Primary Care Physician [facility] 12-25-2024 13:55-0400 Systolic blood pressure 120 mm[Hg] No Primary Care Physician [facility] 12-11-2024 13:38-0400 Body height 154.94 cm No Primary Care Physician [facility] 12-11-2024 13:38-0400 Body mass index (BMI) [Ratio] 36.3 kg/m2 No Primary Care Physician [facility] 12-11-2024 13:38-0400 Body weight 87.2 kg No Primary Care Physician [facility] 12-11-2024 13:38-0400 Diastolic blood pressure 86 mm[Hg] No Primary Care Physician [facility] 12-11-2024 13:38-0400 Systolic blood pressure 118 mm[Hg] No Primary Care Physician [facility] 12-05-2024 22:39-0400 Heart rate 81 /min No Primary Care Physician [facility] 12-05-2024 22:39-0400 SaO2% (BldA) [Mass fraction] 98 % No Primary Care Physician [facility] 12-05-2024 22:00-0400 Body height 154.94 cm No Primary Care Physician [facility] 12-05-2024 22:00-0400 Body mass index (BMI) [Ratio] 36.1 kg/m2 No Primary Care Physician [facility] 12-05-2024 22:00-0400 Body weight 86.8 kg No Primary Care Physician [facility] 11-27-2024 13:20-0400 Body height 154.94 cm No Primary Care Physician [facility] 11-27-2024 13:20-0400 Body mass index (BMI) [Ratio] 36.2 kg/m2 No Primary Care Physician [facility] 11-27-2024 13:20-0400 Body weight 87.08 kg No Primary Care Physician [facility] 11-27-2024 13:20-0400 Diastolic blood pressure 72 mm[Hg] No Primary Care Physician [facility] 11-27-2024 13:20-0400 Systolic blood pressure 109 mm[Hg] No Primary Care Physician [facility] 11-13-2024 13:07-0400 Body height 154.94 cm No Primary Care Physician [facility] 11-13-2024 13:07-0400 Body mass index (BMI) [Ratio] 34.9 kg/m2 No Primary Care Physician [facility] 11-13-2024 13:07-0400 Body weight 84.02 kg No Primary Care Physician [facility] 11-13-2024 13:07-0400 Diastolic blood pressure 78 mm[Hg] No Primary Care Physician [facility] 11-13-2024 13:07-0400 Systolic blood pressure 112 mm[Hg] No Primary Care Physician [facility] 10-30-2024 13:25-0400 Body height 154.94 cm No Primary Care Physician [facility] 10-30-2024 13:25-0400 Body mass index (BMI) [Ratio] 34.6 kg/m2 No Primary Care Physician [facility] 10-30-2024 13:25-0400 Body weight 83.06 kg No Primary Care Physician [facility] 10-30-2024 13:25-0400 Diastolic blood pressure 78 mm[Hg] No Primary Care Physician [facility] 10-30-2024 13:25-0400 Systolic blood pressure 113 mm[Hg] No Primary Care Physician [facility] 10-18-2024 11:39-0400 Body height 154.94 cm No Primary Care Physician [facility] 10-18-2024 11:39-0400 Body mass index (BMI) [Ratio] 34.1 kg/m2 No Primary Care Physician [facility] 10-18-2024 11:39-0400 Body weight 81.87 kg No Primary Care Physician [facility] 10-18-2024 11:39-0400 Diastolic blood pressure 81 mm[Hg] No Primary Care Physician [facility] 10-18-2024 11:39-0400 Systolic blood pressure 118 mm[Hg] No Primary Care Physician [facility] 10-16-2024 16:51-0400 Body temperature 97.4 [degF] No Primary Care Physician [facility] 10-16-2024 16:51-0400 Diastolic blood pressure 78 mm[Hg] No Primary Care Physician [facility] 10-16-2024 16:51-0400 Heart rate 104 /min No Primary Care Physician [facility] 10-16-2024 16:51-0400 Respiratory rate 16 /min No Primary Care Physician [facility] 10-16-2024 16:51-0400 SaO2% (BldA) [Mass fraction] 100 % No Primary Care Physician [facility] 10-16-2024 16:51-0400 Systolic blood pressure 113 mm[Hg] No Primary Care Physician [facility] 10-16-2024 14:40-0400 Body mass index (BMI) [Ratio] 33.9 kg/m2 No Primary Care Physician [facility] 10-16-2024 14:40-0400 Body weight 81.46 kg No Primary Care Physician [facility] 10-02-2024 08:33-0400 Body mass index (BMI) [Ratio] 34.2 kg/m2 No Primary Care Physician [facility] 10-02-2024 08:33-0400 Body weight 79.43 kg No Primary Care Physician [facility] 10-02-2024 08:33-0400 Diastolic blood pressure 72 mm[Hg] No Primary Care Physician [facility] 10-02-2024 08:33-0400 Systolic blood pressure 110 mm[Hg] No Primary Care Physician [facility] 09-04-2024 15:35-0400 Body mass index (BMI) [Ratio] 33.5 kg/m2 No Primary Care Physician [facility] 09-04-2024 15:35-0400 Body weight 77.79 kg No Primary Care Physician [facility] 09-04-2024 15:35-0400 Diastolic blood pressure 79 mm[Hg] No Primary Care Physician [facility] 09-04-2024 15:35-0400 Systolic blood pressure 113 mm[Hg] No Primary Care Physician [facility] 08-07-2024 14:08-0500 Body mass index (BMI) [Ratio] 32.8 kg/m2 No Primary Care Physician [facility] 08-07-2024 14:08-0500 Body weight 76.37 kg No Primary Care Physician [facility] 08-07-2024 14:08-0500 Diastolic blood pressure 82 mm[Hg] No Primary Care Physician [facility] 08-07-2024 14:08-0500 Systolic blood pressure 123 mm[Hg] No Primary Care Physician [facility] 07-06-2024 13:08-0500 Body mass index (BMI) [Ratio] 33.4 kg/m2 No Primary Care Physician [facility] 07-06-2024 13:08-0500 Body weight 77.56 kg No Primary Care Physician [facility] 07-06-2024 13:08-0500 Diastolic blood pressure 78 mm[Hg] No Primary Care Physician [facility] 07-06-2024 13:08-0500 Systolic blood pressure 115 mm[Hg] No Primary Care Physician [facility] 04-21-2023 10:13-0500 Body height 152.4 cm No Primary Care Physician [facility] 04-21-2023 10:06-0500 Body mass index (BMI) [Ratio] 31.2 kg/m2 No Primary Care Physician [facility] 04-21-2023 10:06-0500 Body weight 72.63 kg No Primary Care Physician [facility] 04-21-2023 10:06-0500 Diastolic blood pressure 72 mm[Hg] No Primary Care Physician [facility] 04-21-2023 10:06-0500 Systolic blood pressure 118 mm[Hg] No Primary Care Physician [facility] 03-01-2023 11:11-0400 Body mass index (BMI) [Ratio] 30.9 kg/m2 No Primary Care Physician [facility] 03-01-2023 11:11-0400 Body temperature 98.7 [degF] No Primary Care Physician [facility] 03-01-2023 11:11-0400 Body weight 71.89 kg No Primary Care Physician [facility] 03-01-2023 11:11-0400 Diastolic blood pressure 75 mm[Hg] No Primary Care Physician [facility] 03-01-2023 11:11-0400 Heart rate 98 /min No Primary Care Physician [facility] 03-01-2023 11:11-0400 SaO2% (BldA) [Mass fraction] 100 % No Primary Care Physician [facility] 03-01-2023 11:11-0400 Systolic blood pressure 112 mm[Hg] No Primary Care Physician [facility] 01-20-2023 14:38-0400 Body mass index (BMI) [Ratio] 30.2 kg/m2 No Primary Care Physician [facility] 01-20-2023 14:38-0400 Body temperature 98.8 [degF] No Primary Care Physician [facility] 01-20-2023 14:38-0400 Body weight 70.3 kg No Primary Care Physician [facility] 01-20-2023 14:38-0400 Diastolic blood pressure 78 mm[Hg] No Primary Care Physician [facility] 01-20-2023 14:38-0400 Heart rate 104 /min No Primary Care Physician [facility] 01-20-2023 14:38-0400 Systolic blood pressure 107 mm[Hg] No Primary Care Physician [facility] 11-11-2022 11:05-0400 Diastolic blood pressure 75 mm[Hg] No Primary Care Physician [facility] 11-11-2022 11:05-0400 Systolic blood pressure 108 mm[Hg] No Primary Care Physician [facility] 11-11-2022 10:52-0400 Body height 152.4 cm No Primary Care Physician [facility] 11-11-2022 10:52-0400 Body mass index (BMI) [Ratio] 30.3 kg/m2 No Primary Care Physician [facility] 11-11-2022 10:52-0400 Body weight 70.47 kg No Primary Care Physician [facility] 11-05-2022 11:10-0400 Body mass index (BMI) [Ratio] 30.4 kg/m2 No Primary Care Physician [facility] 11-05-2022 11:10-0400 Body weight 70.76 kg No Primary Care Physician [facility] 11-05-2022 11:10-0400 Diastolic blood pressure 80 mm[Hg] No Primary Care Physician [facility] 11-05-2022 11:10-0400 Systolic blood pressure 119 mm[Hg] No Primary Care Physician [facility] 09-25-2022 14:07-0400 Body temperature 98.1 [degF] No Primary Care Physician [facility] 09-25-2022 14:07-0400 Diastolic blood pressure 82 mm[Hg] No Primary Care Physician [facility] 09-25-2022 14:07-0400 Heart rate 90 /min No Primary Care Physician [facility] 09-25-2022 14:07-0400 Respiratory rate 16 /min No Primary Care Physician [facility] 09-25-2022 14:07-0400 SaO2% (BldA) [Mass fraction] 98 % No Primary Care Physician [facility] 09-25-2022 14:07-0400 Systolic blood pressure 136 mm[Hg] No Primary Care Physician [facility] 09-23-2022 07:58-0400 Body height 152.4 cm No Primary Care Physician [facility] 09-23-2022 07:58-0400 Body mass index (BMI) [Ratio] 37 kg/m2 No Primary Care Physician [facility] 09-23-2022 07:58-0400 Body weight 86.18 kg No Primary Care Physician [facility] 09-23-2022 00:14-0400 Body temperature 98.8 [degF] No Primary Care Physician [facility] 09-23-2022 00:14-0400 Diastolic blood pressure 82 mm[Hg] No Primary Care Physician [facility] 09-23-2022 00:14-0400 Heart rate 84 /min No Primary Care Physician [facility] 09-23-2022 00:14-0400 Systolic blood pressure 116 mm[Hg] No Primary Care Physician [facility] 09-23-2022 00:13-0400 SaO2% (BldA) [Mass fraction] 97 % No Primary Care Physician [facility] 09-23-2022 00:07-0400 Body height 152.4 cm No Primary Care Physician [facility] 09-23-2022 00:07-0400 Body mass index (BMI) [Ratio] 37.8 kg/m2 No Primary Care Physician [facility] 09-23-2022 00:07-0400 Body weight 87.7 kg No Primary Care Physician [facility] 09-21-2022 15:21-0400 Body mass index (BMI) [Ratio] 37.1 kg/m2 No Primary Care Physician [facility] 09-21-2022 15:21-0400 Body weight 86.23 kg No Primary Care Physician [facility] 09-21-2022 15:21-0400 Diastolic blood pressure 83 mm[Hg] No Primary Care Physician [facility] 09-21-2022 15:21-0400 Systolic blood pressure 118 mm[Hg] No Primary Care Physician [facility] 09-15-2022 15:59-0400 Body temperature 99.6 [degF] No Primary Care Physician [facility] 09-15-2022 15:53-0400 Diastolic blood pressure 71 mm[Hg] No Primary Care Physician [facility] 09-15-2022 15:53-0400 Heart rate 101 /min No Primary Care Physician [facility] 09-15-2022 15:53-0400 Systolic blood pressure 113 mm[Hg] No Primary Care Physician [facility] 09-15-2022 15:24-0400 Body height 152.4 cm No Primary Care Physician [facility] 09-15-2022 15:24-0400 Body mass index (BMI) [Ratio] 36.4 kg/m2 No Primary Care Physician [facility] 09-15-2022 15:24-0400 Body weight 84.6 kg No Primary Care Physician [facility] 09-14-2022 12:53-0400 Diastolic blood pressure 85 mm[Hg] No Primary Care Physician [facility] 09-14-2022 12:53-0400 Heart rate 100 /min No Primary Care Physician [facility] 09-14-2022 12:53-0400 Systolic blood pressure 120 mm[Hg] No Primary Care Physician [facility] 09-14-2022 12:21-0400 Body temperature 98.3 [degF] No Primary Care Physician [facility] 09-14-2022 12:17-0400 Body height 152.4 cm No Primary Care Physician [facility] 09-14-2022 12:17-0400 Body mass index (BMI) [Ratio] 35.7 kg/m2 No Primary Care Physician [facility] 09-14-2022 12:17-0400 Body weight 83 kg No Primary Care Physician [facility] 09-14-2022 11:26-0400 Body mass index (BMI) [Ratio] 36 kg/m2 No Primary Care Physician [facility] 09-14-2022 11:26-0400 Body weight 83.63 kg No Primary Care Physician [facility] 09-14-2022 11:26-0400 Diastolic blood pressure 94 mm[Hg] No Primary Care Physician [facility] 09-14-2022 11:26-0400 Systolic blood pressure 132 mm[Hg] No Primary Care Physician [facility] 09-10-2022 13:29-0400 Body mass index (BMI) [Ratio] 35.7 kg/m2 No Primary Care Physician [facility] 09-10-2022 13:29-0400 Body weight 83 kg No Primary Care Physician [facility] 09-10-2022 13:29-0400 Diastolic blood pressure 84 mm[Hg] No Primary Care Physician [facility] 09-10-2022 13:29-0400 Systolic blood pressure 131 mm[Hg] No Primary Care Physician [facility] 08-25-2022 11:36-0400 Body mass index (BMI) [Ratio] 33.8 kg/m2 No Primary Care Physician [facility] 08-25-2022 11:36-0400 Body weight 78.58 kg No Primary Care Physician [facility] 08-25-2022 11:36-0400 Diastolic blood pressure 81 mm[Hg] No Primary Care Physician [facility] 08-25-2022 11:36-0400 Systolic blood pressure 116 mm[Hg] No Primary Care Physician [facility] 08-16-2022 18:42-0500 Body height 152.4 cm No Primary Care Physician [facility] 08-16-2022 18:42-0500 Body mass index (BMI) [Ratio] 32.8 kg/m2 No Primary Care Physician [facility] 08-16-2022 18:42-0500 Body weight 76.31 kg No Primary Care Physician [facility] 08-16-2022 18:36-0500 Body temperature 97.8 [degF] No Primary Care Physician [facility] 08-16-2022 18:36-0500 Diastolic blood pressure 72 mm[Hg] No Primary Care Physician [facility] 08-16-2022 18:36-0500 Heart rate 102 /min No Primary Care Physician [facility] 08-16-2022 18:36-0500 SaO2% (BldA) [Mass fraction] 100 % No Primary Care Physician [facility] 08-16-2022 18:36-0500 Systolic blood pressure 116 mm[Hg] No Primary Care Physician [facility] 08-12-2022 13:37-0500 Body mass index (BMI) [Ratio] 31.6 kg/m2 No Primary Care Physician [facility] 08-12-2022 13:37-0500 Body weight 75.97 kg No Primary Care Physician [facility] 08-12-2022 13:37-0500 Diastolic blood pressure 74 mm[Hg] No Primary Care Physician [facility] 08-12-2022 13:37-0500 Systolic blood pressure 109 mm[Hg] No Primary Care Physician [facility] 07-30-2022 11:32-0500 Body mass index (BMI) [Ratio] 31 kg/m2 No Primary Care Physician [facility] 07-30-2022 11:32-0500 Body weight 74.5 kg No Primary Care Physician [facility] 07-30-2022 11:32-0500 Diastolic blood pressure 76 mm[Hg] No Primary Care Physician [facility] 07-30-2022 11:32-0500 Systolic blood pressure 108 mm[Hg] No Primary Care Physician [facility] 07-16-2022 13:32-0500 Body mass index (BMI) [Ratio] 30.2 kg/m2 No Primary Care Physician [facility] 07-16-2022 13:32-0500 Body weight 72.74 kg No Primary Care Physician [facility] 07-16-2022 13:32-0500 Diastolic blood pressure 81 mm[Hg] No Primary Care Physician [facility] 07-16-2022 13:32-0500 Systolic blood pressure 120 mm[Hg] No Primary Care Physician [facility] 07-06-2022 15:16-0500 Body mass index (BMI) [Ratio] 29 kg/m2 No Primary Care Physician [facility] 07-06-2022 15:16-0500 Body weight 69.65 kg No Primary Care Physician [facility] 07-06-2022 15:16-0500 Diastolic blood pressure 66 mm[Hg] No Primary Care Physician [facility] 07-06-2022 15:16-0500 Systolic blood pressure 99 mm[Hg] No Primary Care Physician [facility] 07-01-2022 20:46-0500 Diastolic blood pressure 84 mm[Hg] No Primary Care Physician [facility] 07-01-2022 20:46-0500 Heart rate 90 /min No Primary Care Physician [facility] 07-01-2022 20:46-0500 Systolic blood pressure 119 mm[Hg] No Primary Care Physician [facility] 07-01-2022 20:44-0500 Body temperature 98 [degF] No Primary Care Physician [facility] 07-01-2022 20:37-0500 Body height 154.94 cm No Primary Care Physician [facility] 07-01-2022 20:37-0500 Body mass index (BMI) [Ratio] 29.2 kg/m2 No Primary Care Physician [facility] 07-01-2022 20:37-0500 Body weight 70.3 kg No Primary Care Physician [facility] 06-22-2022 10:55-0500 Body mass index (BMI) [Ratio] 28.5 kg/m2 No Primary Care Physician [facility] 06-22-2022 10:55-0500 Body weight 68.66 kg No Primary Care Physician [facility] 06-22-2022 10:55-0500 Diastolic blood pressure 83 mm[Hg] No Primary Care Physician [facility] 06-22-2022 10:55-0500 Systolic blood pressure 122 mm[Hg] No Primary Care Physician [facility] 05-27-2022 14:14-0500 Body mass index (BMI) [Ratio] 27.1 kg/m2 No Primary Care Physician [facility] 05-27-2022 14:14-0500 Body weight 65.31 kg No Primary Care Physician [facility] 05-27-2022 14:14-0500 Diastolic blood pressure 78 mm[Hg] No Primary Care Physician [facility] 05-27-2022 14:14-0500 Systolic blood pressure 122 mm[Hg] No Primary Care Physician [facility] 04-28-2022 13:12-0500 Body mass index (BMI) [Ratio] 26.6 kg/m2 No Primary Care Physician [facility] 04-28-2022 13:12-0500 Body weight 63.95 kg No Primary Care Physician [facility] 04-28-2022 13:12-0500 Diastolic blood pressure 78 mm[Hg] No Primary Care Physician [facility] 04-28-2022 13:12-0500 Systolic blood pressure 112 mm[Hg] No Primary Care Physician [facility] 03-29-2022 13:02-0400 Body mass index (BMI) [Ratio] 25.9 kg/m2 No Primary Care Physician [facility] 03-29-2022 13:02-0400 Body weight 62.14 kg No Primary Care Physician [facility] 03-29-2022 13:02-0400 Diastolic blood pressure 74 mm[Hg] No Primary Care Physician [facility] 03-29-2022 13:02-0400 Systolic blood pressure 114 mm[Hg] No Primary Care Physician [facility] 03-11-2022 10:32-0400 Body height 154.94 cm No Primary Care Physician [facility] Work Phone: 03-11-2022 10:32-0400 Body mass index (BMI) [Ratio] 25.4 kg/m2 No Primary Care Physician [facility] 03-11-2022 10:32-0400 Body weight 61.23 kg No Primary Care Physician [facility] 03-11-2022 10:32-0400 Diastolic blood pressure 69 mm[Hg] No Primary Care Physician [facility] 03-11-2022 10:32-0400 Systolic blood pressure 101 mm[Hg] No Primary Care Physician [facility] Encounters Encounter Date Encounter Type Care Provider Facility Start: 01-16-2025 End: 01-16-2025 ambulatory Sharri Begum Facility:[facility] Start: 01-16-2025 End: 01-16-2025 Patient encounter procedure Sharri Kel CNM -[facility] Work Phone: Start: 01-07-2025 Patient encounter procedure Sharri Kel CNM -[facility] Work Phone: Start: 01-07-2025 ambulatory Sharri Begum Facility :[facility] Start: 01-07-2025 End: 01-07-2025 Patient encounter procedure Sharri Begum CNM -[facility] Work Phone: Start: 01-07-2025 End: 01-07-2025 ambulatory No Primary Care Physician -[facility] Start: 01-03-2025 End: 01-03-2025 ambulatory LYNSEY Hinkle LEONARDO [facility] Start: 12-25-2024 End: 12-25-2024 ambulatory No Primary Care Physician -[facility] Start: 12-25-2024 End: 12-25-[address] Lynsey Ambrocio DO -[facility] Work Phone: Start: 12-11-2024 End: 12-11-2024 Patient encounter procedure Imani ZEE -[facility] Work Phone: Start: 12-11-2024 End: 12-11-2024 ambulatory No Primary Care Physician -[facility] Start: 12-05-2024 ambulatory Lynsey Edwardsty:[facility] Start: 12-05-2024 Non-patient / Non-visit Dr. Clarence Ambrocio DO -[facility] Start: 12-05-2024 End: 12-05-2024 ambulatory No Primary Care Physician [facility] Work Phone: Start: 12-05-2024 End: 12-05-[address] Lynsey Ambrocio DO -[facility] Work Phone: Start: 11-27-2024 End: 11-27-[address] Lynsey Ambrocio DO -[facility] Work Phone: Start: 11-27-2024 End: 11-27-2024 ambulatory No Primary Care Physician [facility] Work Phone: Start: 11-15-2024 End: 11-15-2024 ambulatory [facility] Start: 11-13-2024 End: 11-13-2024 ambulatory No Primary Care Physician [facility] Work Phone: Start: 11-13-2024 End: 11-13-2024 Patient encounter procedure Imani ZEE -[facility] Work Phone: Start: 11-13-2024 End: 11-13-2024 ambulatory Sharri Begum Facility:[facility] Start: 10-30-2024 End: 10-30-2024 Patient encounter procedure Sharri SAMPSON -[facility] Work Phone: Start: 10-30-2024 End: 10-30-2024 ambulatory No Primary Care Physician [facility] Work Phone: Start: 10-18-2024 End: 10-18-2024 Non-patient / Non-visit Dr. Manolo Merritt MD -[facility] Work Phone: Start: 10-18-2024 End: 10-18-2024 Patient encounter procedure Imani ZEE -[facility] Work Phone: Start: 10-18-2024 End: 10-18-2024 ambulatory No Primary Care Physician [facility] Work Phone: Start: 10-18-2024 End: 10-18-2024 ambulatory Imani Sullivan NP Facility:[facility] Start: 10-16-2024 End: 10-16-2024 Emergency department patient visit Dr. Edwin Rome MD -Emergency Department Work Phone: Start: 10-02-2024 End: 10-02-2024 Patient encounter procedure Imani ZEE -[facility] Work Phone: Start: 10-02-2024 End: 10-02-2024 ambulatory No Primary Care Physician Facility:[facility] Start: 09-13-2024 End: 09-13-2024 ambulatory [facility] Start: 09-04-2024 End: 09-04-2024 Patient encounter procedure Imani ZEE -[facility] Work Phone: Start: 09-04-2024 End: 09-04-2024 ambulatory No Primary Care Physician Facility:[facility] Start: 08-07-2024 End: 08-07-[address] Karyna Carr MD -[facility] Work Phone: Start: 08-07-2024 End: 08-07-2024 ambulatory No Primary Care Physician Facility:[facility] Start: 07-10-2024 End: 07-10-2024 Patient encounter procedure Sharri Begum CNM -Lab, [facility] Start: 07-10-2024 End: 07-10-2024 ambulatory No Primary Care Physician Facility:[facility] Start: 07-06-2024 End: 07-06-2024 Patient encounter procedure Sharri Begum CNM -Laboratory, Specimen Work Phone: Start: 07-06-2024 End: 07-06-2024 Patient encounter procedure Sharri Begum CNM -[facility] Work Phone: Start: 07-06-2024 End: 07-06-2024 ambulatory No Primary Care Physician Facility:[facility] Start: 07-06-2024 End: 07-06-2024 ambulatory No Primary Care Physician Facility:[facility] Start: 06-22-2024 ambulatory Annette Mehtaly Facility :[facility] Start: 04-03-2024 Encounter for gynecological examination (general) (routine) with abnormal findings Imani Sullivan NP [facility] Start: 04-03-2024 End: 04-03-2024 ambulatory No Primary Care Physician Facility:[facility] Start: 04-03-2024 End: 04-03-2024 ambulatory No Primary Care Physician Facility:[facility] Start: 03-13-2024 End: 03-13-2024 ambulatory No Primary Care Physician Facility:[facility] Start: 02-15-2024 End: 02-15-2024 ambulatory ALMAZ GORDON [facility] Start: 12-22-2023 End: 12-22-2023 ambulatory CHAVA EL [facility] Start: 06-19-2023 End: 06-19-2023 Emergency department patient visit YUDY DAAIRMNPENNY [facility] Start: 05-02-2023 End: 05-02-2023 ambulatory No Primary Care Physician [facility] Work Phone: Start: 05-02-2023 End: 05-02-2023 Patient encounter procedure No Primary Care Physician [facility]-Ultrasound, [facility] Work Phone: Start: 04-21-2023 End: 04-21-2023 ambulatory No [facility] [facility] Work Phone: Start: 04-21-2023 End: 04-21-2023 Patient encounter procedure No Primary Care Physician [facility], Specimen Work Phone: Start: 04-21-2023 End: 04-21-2023 Patient encounter procedure No Primary Care Physician [facility] Work Phone: Start: 03-01-2023 End: 03-01-2023 Patient encounter procedure No Primary Care Physician [facility] Work Phone: Start: 02-15-2023 End: 02-15-2023 ambulatory LINH ALEXANDRA Facility:[facility] Start: 02-15-2023 End: 02-15-2023 Patient encounter procedure Linh Alexandra OD Work Phone: Ophthalmology Comment on above: Amblyopia suspect, l eft eye (Primary Dx); Anisometropia; Accommodative insufficiency Start: 01-20-2023 End: 01-20-2023 Patient encounter procedure No Primary Care Physician [facility] Work Phone: Start: 12-23-2022 End: 12-23-2022 ambulatory No Primary Care Physician [facility] Work Phone: Start: 12-23-2022 End: 12-23-2022 Patient encounter procedure No Primary Care Physician [facility], Specimen Work Phone: Start: 12-23-2022 End: 12-23-2022 Patient encounter procedure No Primary Care Physician [facility] @ Start: 11-11-2022 End: 11-11-2022 ambulatory No Primary Care Physician [facility] Work Phone: Start: 11-11-2022 End: 11-11-2022 Patient encounter procedure No Primary Care Physician [facility] Specimen Start: 11-11-2022 End: 11-11-2022 Patient encounter procedure No Primary Care Physician [facility] Start: 11-05-2022 End: 11-05-2022 Patient encounter procedure No Primary Care Physician [facility] Start: 09-25-2022 Non-patient / Non-visit No Parvin dominique Care Physician [facility] Start: 09-24-2022 Non-patient / Non-visit No Parvin fox Care Physician [facility] Start: 09-23-2022 Non-patient / Non-visit No Parvni fox Care Physician [facility] Start: 09-23-2022 End: 09-25-2022 Evaluation and management of inpatient No Primary Care Physician [facility] Start: 09-22-2022 End: 09-23-2022 ambulatory No Primary Care Physician [facility] Work Phone: Start: 09-22-2022 End: 09-23-2022 Patient encounter procedure No Primary Care Phys[facility] Start: 09-21-2022 End: 09-21-2022 ambulatory No Primary Care Physician [facility] Work Phone: Start: 09-21-2022 End: 09-21-2022 Patient encounter procedure No Primary Care Physician [facility] Specimen Start: 09-21-2022 End: 09-21-2022 Patient encounter procedure No Primary Care Physician [facility] Start: 09-15-2022 Non-patient / Non-visit No Parvin fox Care Physician [facility] Start: 09-15-2022 End: 09-15-2022 Patient encounter procedure No Primary Care Physician [facility] Start: 09-14-2022 Non-patient / Non-visit No Parvin fox Care Physician [facility] Start: 09-14-2022 End: 09-14-2022 ambulatory No Primary Care Physician [facility] Work Phone: Start: 09-14-2022 End: 09-14-2022 Patient encounter procedure No Primary Care Physician [facility] Start: 09-10-2022 End: 09-10-2022 ambulatory No Primary Care Physician [facility] Work Phone: Start: 09-10-2022 End: 09-10-2022 Patient encounter procedure No Primary Care Physician [facility] Specimen Start: 09-10-2022 End: 09-10-2022 Patient encounter procedure No Primary Care Physician [facility] Start: 08-25-2022 End: 08-25-2022 Patient encounter procedure No Primary Care Physician [facility] Start: 08-16-2022 Non-patient / Non-visit No Parvin fox Care Physician [facility] Start: 08-16-2022 End: 08-16-2022 ambulatory No Primary Care Physician [facility] Work Phone: Start: 08-16-2022 End: 08-16-2022 Patient encounter procedure No Primary Care Physician [facility] Start: 08-12-2022 End: 08-12-2022 Patient encounter procedure No Primary Care Physician [facility] @ Start: 07-30-2022 End: 07-30-2022 Patient encounter procedure No Primary Care Physician [facility] Start: 07-16-2022 End: 07-16-2022 Patient encounter procedure No Primary Care Physician [facility] Start: 07-06-2022 End: 07-06-2022 Patient encounter procedure No Primary Care Physician [facility] Start: 07-03-2022 Non-patient / Non-visit No [facility] Care Physician [facility] Start: 07-01-2022 End: 07-01-2022 Patient encounter procedure No Primary Care Physician [facility] Start: 06-22-2022 End: 06-22-2022 ambulatory No Primary Care Physician [facility] Work Phone: Start: 06-22-2022 End: 06-22-2022 Patient encounter procedure No Primary Care Physician [facility] Start: 05-27-2022 End: 05-27-2022 Patient encounter procedure No Primary Care Physician [facility] Start: 04-28-2022 End: 04-28-2022 Patient encounter procedure No Primary Care Physician [facility] Start: 03-29-2022 End: 03-29-2022 Patient encounter procedure No Primary Care Physician [facility] Start: 03-11-2022 End: 03-11-2022 ambulatory No Primary Care Physician [facility] Work Phone: Start: 03-11-2022 End: 03-11-2022 Patient encounter procedure No Primary Care Physician [facility] Start: 03-11-2022 End: 03-11-2022 Patient encounter procedure No Primary Care Physician [facility] Procedures Date Procedure Procedure Detail Performing [...] Activity Detail Author Start: 12-05-2024 Nonstress test [facility] Start: 12-05-2024 Obstetric monitoring [facility] Start: 12-05-2024 Vital signs measurements [facility] Start: 12-05-2024 [facility] Start: 12-05-2024 Patient discharge [facility] Start: 11-13-2024 CBC W Auto Differential panel - Blood [facility] Start: 11-13-2024 Measurement of glucose 2 hours after glucose challenge for glucose tolerance test [facility] Start: 11-13-2024 Serologic test for syphilis [facility] Start: 11-13-2024 [facility] Start: 10-16-2024 [facility] Start: 10-16-2024 Urnls dip stick/tablet reagent auto microscopy URINALYSIS AUTO W/SCOPE [facility] Start: 02-11-2023 Influenza vaccination INFLUENZA (#1) [facility] Start: 11-11-2022 Liquid based cervical cytology screening [facility] Start: 09-25-2022 Patient discharge [facility] Start: 09-24-2022 Consultation [facility] Start: 09-23-2022 Administration of medication [facility] Start: 09-23-2022 Application of ice collar, cap or bag [facility] Start: 09-23-2022 Catheterization of vein [facility] Start: 09-23-2022 Introduction of urinary catheter [facility] Start: 09-23-2022 Measuring intake and output [facility] Start: 09-23-2022 Notification of physician [facility] Start: 09-23-2022 Procedure discontinued [facility] Start: 09-23-2022 Provision of activity privileges [facility] Start: 09-23-2022 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 [facility] Start: 09-23-2022 Vital signs measurements [facility] Start: 09-23-2022 [facility] Start: 09-23-2022 Admission procedure [facility] Start: 09-23-2022 Nonstress test [facility] Start: 09-23-2022 Obstetric monitoring [facility] Start: 09-23-2022 Vital signs measurements [facility] Start: 09-23-2022 [facility] Start: 09-23-2022 Patient discharge [facility] Start: 09-22-2022 monitoring labor phys written report MONITOR W/REPORT [facility] Start: 09-22-2022 nonstress test NON-STRESS TEST [facility] Start: 09-21-2022 Blood count complete auto&auto difrntl wbc COMPLETE CBC W/AUTO DIFF WBC [facility] Start: 09-21-2022 Collection venous blood venipuncture ROUTINE VENIPUNCTURE [facility] Start: 09-21-2022 Comprehensive metabolic panel COMPREHEN METABOLIC PANEL [facility] Start: 09-21-2022 Creatinine other source ASSAY OF URINE CREATININE [facility] Start: 09-21-2022 Protein total xcpt refractometry urine ASSAY OF PROTEIN URINE [facility] Start: 09-15-2022 Patient discharge [facility] Start: 09-15-2022 Nonstress test [facility] Start: 09-15-2022 Obstetric monitoring [facility] Start: 09-15-2022 Vital signs measurements [facility] Start: 09-15-2022 [facility] Start: 09-15-2022 Catheterization of vein [facility] Start: 09-14-2022 End: 09-14-2022 [facility] Start: 09-14-2022 Nonstress test [facility] Start: 09-14-2022 Obstetric monitoring [facility] Start: 09-14-2022 Vital signs measurements [facility] Start: 09-14-2022 Patient discharge [facility] Start: 08-16-2022 Nonstress test [facility] Start: 08-16-2022 Obstetric monitoring [facility] Start: 08-16-2022 Vital signs measurements [facility] Start: 08-16-2022 [facility] Start: 08-16-2022 Patient discharge [facility] Start: 07-01-2022 Nonstress test [facility] Start: 07-01-2022 End: 07-01-2022 [facility] Start: 07-01-2022 Obstetric monitoring [facility] Start: 07-01-2022 Vital signs measurements [facility] Start: 07-01-2022 Patient discharge [facility] Start: 06-13-2022 DEPRESSION ASSESSMENT DEPRESSION ASSESSMENT [facility] Start: 03-11-2022 Liquid based cervical cytology screening [facility] Work Phone: Start: 2020 PAP TESTING PAP TESTING [facility] Start: 2018 Urine microalbumin profile DTAP,TDAP,TD (1 - Tdap) [facility] Start: 2017 CHLAMYDIA SCREENING (18-24) CHLAMYDIA SCREENING (18-24) [facility] Start: 2017 GC (GONORRHEA) SCREENING (18-24) GC (GONORRHEA) SCREENING (18-24) [facility] Start: 2017 HEPATITIS C SCREENING HEPATITIS C SCREENING [facility] Start: 2017 HIV SCREENING HIV SCREENING [facility] Start: 2013 PEDS TO ADULT TRANSITION ANNUAL ASSESSMENT PEDS TO ADULT TRANSITION ANNUAL ASSESSMENT [facility] Start: 2011 PEDS TO ADULT TRANSITION INITIAL DISCUSSION PEDS TO ADULT TRANSITION INITIAL DISCUSSION [facility] Start: 2008 HPV VACCINE (1 - 2-dose series) HPV VACCINE (1 - 2-dose series) [facility] Start: 1999 COVID-19 VACCINE (#1) COVID-19 VACCINE (#1) [facility] Start: 1999 HEPATITIS B (1 of 3 - 3-dose series) HEPATITIS B (1 of 3 - 3-dose series) [facility] Bacteria identified in Urine by Culture [facility] Bacteria identified in Urine by Culture Urine Culture [facility] CBC W Auto Different ial panel - Blood [facility] CBC W Auto Different ial panel - Blood [facility] Erythrocyte mean corpuscular volume determination [facility] Hematocrit [Volume Fraction] of Blood [facility] Hemoglobin [Mass/vol ume] in Blood [facility] Leukocytes [#/volume ] in Blood [facility] Mean corpuscular hemoglobin concentration determination [facility] Mean corpuscular hemoglobin determination [facility] Measurement of gluco se 2 hours after glucose challenge for glucose tolerance test [facility] Neutrophil count [facility] Neutrophil percent differential count [facility] Path report.final Dx Spec [facility] Work Phone: Path report.final Dx Spec [facility] Patient Education [facility] Work Phone: Patient referral [facility] Work Phone: Platelets [#/volume] in Blood [facility] Protein/Creatinine [ Ratio] in Urine [facility] Red blood cell count [facility] Red cell distributio n width determination [facility] Serologic test for syphilis [facility] Streptococcus agalac tiae [Presence] in Unspecified specimen by Organism specific culture [facility] Streptococcus agalac tiae [Presence] in Unspecified specimen by Organism specific culture [facility] US Pelvis [facility] US Pelvis transvaginal [place] Ng [facility] Immunizations Immunization Date Immunization Notes Care Provider Samina garces 09-10-2022 tetanus toxoid, redu reji diphtheria toxoid, and acellular pertussis vaccine, adsorbed No Primary Care Physician [facility] Payers Date Payer Category Payer Self-pay [id number] 2022 Medicaid [id number] 2022 Medicaid [facility] [id number] 2022-Present [phone] [address] [place] [address] Medicaid [id number] 1999 Unknown [id number] 2.840.1.966003.3.579.2.651 1999 Unknown [id number] 2.840.1.366293.3.579.2.297 1999 Unknown [id number] 2.840.1.101251.3.579.2.297 1999 Unknown [id number] 2.16840.1.505862.3.579.2.479 1999 Unknown [id number] 2.16840.1.704315.3.579.2.479 1999 Unknown [id number] 2.16840.1.981915.3.579.2.479 Unknown [id number] Unknown [id number] 2.16840.1.943755.3.579.2.462 Unknown [id number] 2.16.840.1.254633.3.579.2.462 Unknown [id number] 2.16.840.1.400058.3.579.2.462 Unknown [id number] 2.16.840.1.093688.3.579.2.462 Unknown [id number] 2.16.840.1.331590.3.579.2.462 Unknown [id number] 2.16.840.1.442758.3.579.2.462 Unknown [id number] 2.840.1.114404.3.579.2.462 Unknown [id number] 2.840.1.410711.3.579.2.462 Unknown [id number] 2.840.1.500378.3.579.2.462 Unknown [id number] 2.840.1.729134.3.579.2.462 Unknown [id number] 2.840.1.996624.3.579.2.462 Unknown [id number] 2.840.1.120584.3.579.2.462 Unknown [id number] 2.840.1.054071.3.579.2.462 Unknown [id number] 2.840.1.478860.3.579.2.462 Unknown [id number] 2.840.1.307417.3.579.2.462 Unknown [id number] 2.840.1.188039.3.579.2.462 Unknown [id number] 2.840.1.665292.3.579.2.462 Unknown [id number] 2.840.1.088594.3.579.2.462 Unknown [id number] 2.16840.1.501056.3.579.2.462 Unknown [id number] 2.16.840.1.086719.3.579.2.462 Unknown [id number] 2.16.840.1.995439.3.579.2.462 Unknown [id number] 2.16.840.1.842450.3.579.2.462 Unknown [id number] 2.16.840.1.686016.3.579.2.462 Unknown [id number] 2.840.1.704015.3.579.2.462 Unknown [id number] 2.16.840.1.771400.3.579.2.462 Social History Date Type Detail Facility Start: 03-11-2022 End: 04-21-2023 Tobacco smoking status LAIS Unknown if ever smoked [facility] Start: 2000 Sex Assigned At Female W [facility] Start: 02-15-2023 End: 10-16-2024 Tobacco smoking status NHIS Never smoked tobacco [facility] Start: 02-15-2023 Tobacco use and exposure Smokeless tobacco non-user [facility] Start: 02-15-2023 History of Social function [facility] Start: 02-15-2023 Tobacco use panel [facility] National Score (1-100), lower number is lower risk [address] [facility] Start: 2000 Sex Assigned At Not on file [facility] Goals Date Patient Goal Desired Activity /State Mental Status Date Assessment Result Facility 10-16-2024 Cognitive function Level Of Cons ciousness Awake;Alert;Appropriate;Follow s Commands [facility] Work Phone: Clinical Notes 03-11-2022 to 01-16-2025 Note Date & Type Note Facility 01-16-2025 Progress note [facility] 01-16-2025 Progress note Note Date/Time January 16, 2025 2:12pm [facility] [address], [address] [place] [address] OFFICE VISIT Date of Service: 01/16/25 MR#: [id number] Acct: [id number] Name: GRATN RUVALCABA Rep #: [id number] : 2000 Provider: SPIKE Begum Age/Sex: 24/F Location: [facility] Status: Signed Intake Vital Signs 12/25/24 13:55 01/07/25 14:27 01/16/25 13:45 Height 5 ft 1 in 5 ft 1 in 5 ft 1 in Weight: 210 lb BMI 39.6 BP 125/90 H Intake Visit Reasons: 37 wk ob 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 Feeder Required: No Feel stressed/tense/nervous/anxious/difficulty sleeping: not at [...] house number of children: 1 current occupation: [employer] current occupational exposures/hazards: No pets and [...] 1-2 times per week duration: 15-30 minutes/day eveline/sabianism: Moravian seatbelt use: always do you feel safe [...] Signs and Symptoms of Preeclampsia, Labor Signs, [place] Education, Family Medical Leave or Disability Forms, [...] Cosignalpesh Signature: Date (if applicable) CC: ~ [facility] [facility] Work Phone: 1(523) 824-206107-28-2025 [facility] [address], [address] [place] [address] OFFICE VISIT Date of Service: 01/07/25 MR#: [id number] Acct: [id number] Name: GRANT RUVALCABA Rep #: [id number] : 2000 Provider: SPIKE Begum Age/Sex: 24/F Location: [facility] Status: Signed Intake Vital Signs 11/13/24 13:07 12/25/24 13:55 01/07/25 14:27 Height 5 ft 1 in 5 ft 1 in 5 ft 1 in Weight: 198 lb 203 lb 2 oz BMI 37.4 38.3 BP 120/83 H 112/81 H Intake Visit Reasons: 36 wk ob Chief Complaint: 36wk OB 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 Feeder Required: No Is patient in pain?: No [...] house number of children: 1 current occupation: [employer] current occupational exposures/hazards: No pets and [...] 1-2 times per week duration: 15-30 minutes/day eveline/sabianism: Moravian seatbelt use: always do you feel safe [...] Cosigner Signature: Date (if applicable) CC: ~ [facility]07-28-2025 Progress note Author Sharri Begum [facility] Note Date/Time January 07, 2025 2:56 pm [facility] [address] [place] [address], [address] [place] [address] OFFICE VISIT Date of Service: 01/07/25 MR#: [id number] Acct: [id number] Name: GRANT RUVALCABA Rep #: [id number] : 2000 Provider: SPIKE Begum Age/Sex: 24/F Location: [facility] Status: Signed Intake Vital Signs 11/13/24 13:07 12/25/24 13:55 01/07/25 14:27 Height 5 ft 1 in 5 ft 1 in 5 ft 1 in Weight: 198 lb 203 lb 2 oz BMI 37.4 38.3 BP 120/83 H 112/81 H Intake Visit Reasons: 36 wk ob Chief Complaint: 36wk OB 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 Feeder Required: No Is patient in pain?: No [...] house number of children: 1 current occupation: [employer] current occupational exposures/hazards: No pets and [...] 1-2 times per week duration: 15-30 minutes/day eveline/sabianism: Moravian seatbelt use: always do you feel safe [...] this visit. [place] appropriate handout given. 01/07/25 1286 <Electronically signed by Sharri nice CNM> Date _ Sharri Begum CNM Cosigner Signature: Date (if applicable) CC: ~ [facility] Work Phone: 1(319) 453-374306-17-2025 [facility] [address] [place] [address], [address] [place] [address] OFFICE VISIT Date of Service: 11/27/24 MR#: [id number] Acct: [id number] Name: GRANT RUVALCABA Rep #: [id number] : 2000 Provider: Dr. Lela Ambrocio DO Age/Sex: 24/F Location: [facility] Status: Signed Intake Vital Signs 10/30/24 13:25 11/13/24 13:07 11/27/24 13:20 Height 5 ft 1 in 5 ft 1 in 5 ft 1 in Weight: 192 lb BMI 36.2 BP 109/72 Intake Visit Reasons: 30 wk ob Chief Complaint: 30 Week OB 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 Feeder Required: No Is patient in pain?: No [...] house number of children: 1 current occupation: [employer] current occupational exposures/hazards: No pets and [...] 1-2 times per week duration: 15-30 minutes/day eveline/sabianism: Moravian seatbelt use: always do you feel safe at home: Yes additional social history: : [employer] History 2 Elective abortions Hx Para [...] DO> Date _ Lynsey Bloom Robert [facility] Signature: Date (if applicable) CC: ~ [facility]05-20-2025 [facility] [address] [place] [address], [address] [place] [address] OFFICE VISIT Date of Service: 10/30/24 MR#: [id number] Acct: [id number] Name: GRANT RUVALCABA DAVID Rep #: [id number] : 2000 Provider: SPIKE Begum Age/Sex: 24/F Location: [facility] Status: Signed Intake Vital Signs 09/04/24 15:35 10/18/24 11:39 10/30/24 13:25 Height 5 ft 5 ft 1 in 5 ft 1 in Weight: 183 lb 2 oz BMI 34.6 BP 113/78 Intake Visit Reasons: 26wk ob *25w6d Chief Complaint: 26wk OB 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 Feeder Required: No Is patient in pain?: No [...] house number of children: 1 current occupation: [employer] current occupational exposures/hazards: No pets and [...] 1-2 times per week duration: 15-30 minutes/day eveline/sabianism: Moravian seatbelt use: always do you feel safe at home: Yes additional social history: : [employer] History 2 Elective abortions Hx Para 1 Spontaneous abortions Hx # Term Pregnancies 1 Ectopic pregnancies Hx # Pregnancies Multiple births # of living children 1 Past Pregnancies Del. Date Name GA/Weeks Outcome Route Bth Weight Infant Gen Labor Lgth Anesthesia Del Locatn Provider FOB 09/23/22 Kate 38 live - full term 7lbs 6oz Male epi dural [facility] Karyna Magaly [facility] Delivery Date: 09/23/22 [...] Signs and Symptoms of Preeclampsia, Labor Signs, [place] Education and Depression; Discussed Tobacco Cessation ROS [...] Cosigner Signature: Date (if applicable) CC: ~ [facility]05-08-2025 Radiology Diagnostic study note [facility] Imaging Services [address] [place], [place] [address] Chest PA and Lateral MR#: [id number] Acct: [id number] Name: GRANT RUVALCABA Rep #: [id number] : 2000 F 24 From: Jazzmine Fisher MD PCP: Neda Keith PA-C 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 Study:Chest PA and Lateral Date of Exam: 10/18/24 Exam# [id number] Ordering Dr: Imani Sullivan EXEC[employer]IVE [employer] EXEC[employer]IVE [employer]-C EXAM: XR Chest, 2 Views CLINICAL INDICATION: [...] RAD-BREE- CC: SAADIA Sullivan; GERALDINE Keith ~ Director Of Vital Statistics: Signed [facility]04-22-2025 Evaluation note* Diagnosis Onset Date [...] 2:21pm Trauma during acute J 2024 2:21pm [facility] Work Phone: 1([phone]) 108-311704-22-2025 Evaluation note* Diagnosis Onset Date Resolution Status [...] Trauma during acute A ugust 2024 1:37pm [facility] Work Phone: [phone]) 922-615203-25-2025 Evaluation note* Diagnosis Onset Date Resolution Status [...] :36pm Trauma during acute J isis2024 1:36pm [facility] Work Phone: [phone]) 447-475203-25-2025 Evaluation note* Diagnosis Onset Date Resolution Status [...] Trauma during acute J isis 2024 1:51pm [facility] Work Phone: [phone]) 544-744402-25-2025 Evaluation note* Diagnosis Onset Date Resolution Status [...] antepartum resol mt November 13, 2024 1:02pm [facility] Work Phone: [phone] Evaluation note* Diagnosis Onset Date Resolution Status [...] high-risk acute November 13, 2024 1 :02pm [facility] Work Phone: [phone]) 801-920502-25-2025 Evaluation note* Diagnosis Onset Date Resolution Status [...] of high-risk acute November 27, 2024 1:17pm [facility] Work Phone: [phone]) [phone] Evaluation note* Diagnosis Onset Date Resolution Status [...] high-risk acute October 18, 2024 11 :33am [facility] Work Phone: [phone] Evaluation note* Diagnosis Onset Date Resolution Status [...] high-risk acute October 30, 2024 1 :21pm [facility] Work Phone: [phone] 312-582909-05-2023 NoteHNO ID: [id number] Author: Linh Alexandra OD Service: ? Author Type: DISABILITY COUNSELOR Type: Progress Notes Filed: 02/15/2023 3:54 PM [...] Linh Alexandra OD February 15, 2023 3:53 [facility]09-05-2023 History of Present illness Narrative* Linh [...] 15, 2023 3:53 PM [facility] NotePap Smear Specimen AdequacyJuly 2022 11:59pmComment.Satisfactory for evaluation. Endocervical and/or squamous metaplasticcells (endocervical component)are present.[facility] INTERFACED A#[id number] Southeastern Medical CenterComment on above:Satisfactory for evaluation. Endocervical and/or squamous metaplasticcells (endocervical component)are present.11-11-2022 NotePap Smear QC ReviewJune 2022 2:18pm Comment.Joana Ambriz, Supervisory Bus Mechanic (ASCP)[facility] INTERFACED A#[id number] Southeastern Medical CenterComment on above:Joana Ambriz, Supervisory Bus Mechanic (ASCP)09-25-[address] Jones [facility] September 25, 2022 10:03am Note Date/Time September 25, 2022 10: 03am [facility] Medical Records Department [address] [place] [address] Progress Note - OBGYN 09/25/22 1003 MR#: [id number] Acct: [id number] Name: GRANT ARMSTRONG Rep #:[id number] : 2000 22 From: Lynsey Ambrocio DO PCP: Care Physician,No Primary Status :ADM IN Location: VB080-2 Subjective Subjective Patient doing well without complaints. [...] Cosigner Signature (if applicable): CC: ~ Signed [facility] Work Phone: [phone] Jones [facility] September 24, 2022 7:54am Note Date/Time September 24, 2022 7:5 4am [facility] Medical Records Department [address] [place] [address] Progress Note - OBGYN 09/24/22 0753 MR#: [id number] Acct: [id number] Name: GRANT ARMSTRONG Rep #:[id number] : 2000 22 From: Lynsey Ambrocio DO PCP: Care Physician,No Primary Status :ADM IN Location: QA354-0 Objective Data Objective Data Patient doing well [...] 79.2 H, Lymph % (Auto) 10.0 L, [place] % (Auto) 8.9, Eos % (Auto) 1.1, [...] Cosigner Signature (if applicable): CC: ~ Signed [facility] Work Phone: [phone]) [phone] Carr [facility] September 23, 2022 8:40pm Note Date/Time September 23, 2022 8:2 6pm [facility] Medical Records Department [address] [place] [address] Instructions for Home/Discharge Instructions 09/23/222024 MR#: [id number] Acct: [id number] Name: GRANT ARMSTRONG Rep #:[id number] : 2000 From: Karyna paulino MD PCP: [...] CC: No Primary Care Physician ~ Signed [facility] Work Phone: [phone]) [phone] Procedure [facility] 09-23-[address] Carr [facility] September 23, 2022 5:13pm Note Date/Time September 23, 2022 5:1 3pm [facility] Medical Records Department [address] [place] [address] Progress Note 09/23/221709 MR#: [id number] Acct: [id number] Name: GRANT ARMSTRONG Rep #:[id number] : 2000 From: Karyna paulino MD PCP: Care Physician,No Primary Status :ADM IN Location: [address] Progress Note patient making change now 6 cm current tracing: FHT: 120 Moderate variability reactive prolonged decel followed by early decelerations category II tracing [place]: q 2-3 Contractions reviewed tracing abnormalities since last note: fluid bolus, position changes, pitocin off A/P: exp mangement, making change overall reassuring 09/23/221712 <Electronically signed by Karyna Carr MD> Karyna Carr MD Cosigner Signature (if applicable): CC: ~ Signed [facility] Work Phone: [phone] History and physical note Author Dr. Carr [facility] September 23, 2022 5:10pm Note Date/Time September 23, 2022 5:0 8pm [facility] Medical Records Department [address] [place] [address] H&P Exam - CHIEF DEPUTY COURT CLERK 09/23/22 1706 MR#: [id number] Acct: [id number] Name: GRANT ARMSTRONG Rep #:[id number] : 2000 From: Karyna paulino MD PCP: Care Physician,No Primary Status :ADM IN Location: [address] HPI - General General Date of [...] house current occupational status: employed current occupation: [employer] current occupational exposures/hazards: No pets and animals: [...] 1-2 times per week duration: 15-30 minutes/day eveline/sabianism: Moravian seatbelt use: always do you feel safe [...] any complications: none I have reviewed the [facility] and made any clinically relevant updates. 09/23/22 1710 <Electronically signed by Karyna Carr MD> Cosigner Signature (if applicable): CC: Dr. Karyna Carr MD; No Primary Care Physician~ Signed [facility] Work Phone: [phone]) [phone] NotePap Smear Specimen AdequacySeptember 2021 1:19pmComment.Satisfactory for evaluation. Endocervical and/or squamous metaplasticcells (endocervical component)are present.[facility] INTERFACED A#[id number] Clinic Akron GeneralComment on above:Satisfactory for evaluation. Endocervical and/or squamous metaplasticcells (endocervical component)are present.Evaluation note* Diagnosis Onset Date Resolution Status Asthma acute Fibromyalgia acute acute Supervision of high risk , antepartum acute [facility] Work Phone: Evaluation note* Diagnosis [...] antepartum acute Marginal placenta previa res olved [facility] Work Phone: Evaluation note* Diagnosis [...] Supervision of high risk , antepartum acute [facility] Work Phone: Evaluation note* Diagnosis [...] Supervision of high risk , antepartum acute [facility] Work Phone: Evaluation note* Diagnosis [...] acute Proteinuria affecting in third trimester acute [facility] Work Phone: Evaluation note* Diagnosis [...] acute UTI (urinary tract infection) during acute [facility] Work Phone: Evaluation note* Diagnosis [...] resolved UTI (urinary tract infection) during resolved [facility] Work Phone: Evaluation note* Diagnosis [...] resolved UTI (urinary tract infection) during resolved [facility] Work Phone: Evaluation note* Diagnosis [...] risk HPV cervical acute Depression affecting acute [facility] Work Phone: Evaluation note* Diagnosis [...] risk HPV cervical acute Depression affecting acute [facility] Work Phone: Evaluation note* Diagnosis Amblyopia suspect, left eye- Primary Anisometropia Accommodative insufficiency Presbyopia documented in this encounter [facility] Diagnosis Onset Date Resolution Status Sinusitis noneactive Pelvic pain acute [facility] Work Phone: Hospital Discharge instructions Additional Instructions Keep next follow up appointment.[facility] Work Phone: Progress note Author Dr. Carr [facility] September 14, 2022 1:15pm Note Date/Time September 14, 2022 1:15 pm [facility] Medical Records Department [address] [place] [address] OB Triage Progress Note 09/14/22 1314 MR#: [id number] Acct: [id number] Name: GRANT ARMSTRONG Rep #:[id number] : 2000 From: Karyna paulino MD PCP: Care Physician,No Primary Status :REG CLI Y DOS: Location: [place] [address] Progress Notes Date of Service: 09/14/22 Progress Note: Patient presents for triage evaluation secondary to elevated blood pressure FHT: 140 Moderate variability reactive no decelerations category I tracing [place]: no regular Contractions Assessment and plan: elevated [...] (0-200) mg/g CRE Charges/Coding Procedures Urinary/Genital 52xxx-59xxx: 82304-36 non-stress test Interp 09/14/22 1315 <Electronically signed by Karyna atkinson MD> Date _ Karyna Carr MD Cosigner Signature (if applicable): Date CC: Dr. Karyna Carr MD; No Primary Care Physician ~ Signed [facility] Work Phone: Progress note Author Sharri Begum [facility] Note Date/Time October 30, 2024 1:42p m [facility] [address], [address] [place] [address] OFFICE VISIT Date of Service: 10/30/24 MR#: [id number] Acct: [id number] Name: GRANT RUVALCABA Rep #: [id number] : 2000 Provider: SPIKE Begum Age/Sex: 24/F Location: [facility] Status: Signed Intake Vital Signs 09/04/24 15:35 10/18/24 11:39 10/30/24 13:25 Height 5 ft 5 ft 1 in 5 ft 1 in Weight: 183 lb 2 oz BMI 34.6 BP 113/78 Intake Visit Reasons: 26wk ob *25w6d Chief Complaint: 26wk OB [employer]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 Feeder Required: No Is patient in pain?: No [...] house number of children: 1 current occupation: [employer] current occupational exposures/hazards: No pets and [...] 1-2 times per week duration: 15-30 minutes/day eveline/sabianism: Moravian seatbelt use: always do you feel safe [...] Cosigner Signature: Date (if applicable) CC: ~ [facility] Work Phone: Progress note Author Lynsey Jones [facility] Note Date/Time November 27, 2024 1:33 pm [facility] [address] [place] [address], [address] [place] [address] OFFICE VISIT Date of Service: 11/27/24 MR#: [id number] Acct: [id number] Name: GRANT RUVALCABA Rep #: [id number] : 2000 Provider: Dr. 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 Feeder Required: No Is patient in pain?: No [...] house number of children: 1 current occupation: [employer] current occupational exposures/hazards: No pets and [...] 1-2 times per week duration: 15-30 minutes/day eveline/sabianism: Moravian seatbelt use: always do you feel safe at home: Yes additional social history: : [employer] History 2 Elective abortions Hx Para 1 [...] Woodsignalpesh Signature: Date (if applicable) CC: ~ [facility] Work Phone: Reason for referral (narrative)No reason for referral information availableWCleveland Clinic Akron General Work Phone: Chief Complaint and Reason for [...] Will No June 25 5:36pm Power of Face Burler No June 25, 2020 5:36pm Advance Directive Response Recorded Date/ Time Living Will No June 25 4:36pm Power of Face Burler No June 25, 2020 4:36pm Advance Directive Response Recorded Date/ Time Living Will No August 25, 2022 11:54am Power of Face Burler No August 25 11:54am Advance Directive Response Recorded Date/ Time Living Will No September 23, 2022 9:11am Power of Face Burler No September 23 9:11am Advance Directive Response Recorded Date/ Time Living Will No September 23, 2022 8:11am Power of Face Burler No September 23 8:11am Advance Directive Response Recorded Date/ Time Do you have a [facility] Power of Face Burler? No October 16, 2024 2:55pm Medications Administered [...] Provider, Refer ring Provider Active Imani Sullivan EXECUTIVE CASINO HOST, EXECUTIVE CASINO HOST-C Attending Provider Active Team Status: Active Member [...] Physician Primary Care Provider Active Imani Sullivan EXECUTIVE CASINO HOST, EXECUTIVE CASINO HOST-C Attending Provider, Referring Provider Active Team Status: [...] Physician Primary Care Provider Active Imani Sullivan EXECUTIVE CASINO HOST, EXECUTIVE CASINO HOST-C Attending Provider, Referring Provider Active Team Status: [...] Physician Primary Care Provider Active Imani Sullivan EXECUTIVE CASINO HOST, EXECUTIVE CASINO HOST-C Attending Provider Active Team Status: Active Member [...] End: September 04, 2024 Imani Sullivan NP EXECUTIVE CASINO HOST-C Attending Provider Active Start: September 04, 2024 End: September 04, 2024 Team Status: Inactive Member Role Status Dates No Primary Care Physician Primary Care Provider Active Start: October 02, 2024 End: October 02, 2024 No Primary Care Physician Referring Provider Active Start: October 02, 2024 End: October 02, 2024 Imani Sullivan NP EXECUTIVE CASINO HOST-C Attending Provider Active Start: October 02, 2024 End: October 02, 2024 Team Status: Inactive Member Role Status Dates Dr. Edwin Rome MD Attending Provider Active Sta rt: October 16, 2024 End: October 16, 2024 Dr. Edwin Rome MD Emergency Provider Active Sta rt: October 16, 2024 End: October 16, 2024 Neda [place] PA, PA-C Primary Care Provider Active Start: October 16, 2024 End: October 16, 2024 Team Status: Inactive Member Role Status Dates Neda Keith PA, PA-C Primary Care Provider Active Start: October 18, 2024 End: October 18, 2024 Nedajoyce Keith PA, PA-C Referring Provider Active Start: October 18, 2024 End: October 18, 2024 Imani Sullivan EXECUTIVE CASINO HOST, EXECUTIVE CASINO HOST-C Attending Provider Active Start: October 18, 2024 End: October 18, 2024 Team Status: Inactive Member Role Status Dates Neda Keith PA, PA-C Primary Care Provider Active Start: October 18, 2024 End: October 18, 2024 Imani Sullivan EXECUTIVE CASINO HOST, EXECUTIVE CASINO HOST-C Attending Provider Active Start: October 18, 2024 End: October 18, 2024 Imani Sullivan EXECUTIVE CASINO HOST, EXECUTIVE CASINO HOST-C Referring Provider Active Start: October 18, 2024 End: October 18, 2024 Team Status: Active Member Role Status Dates Neda Keith PA, PA-C Primary Care Provider Active Start: October 18, 2024 End: October 18, 2024 Dr. Manolo Merritt MD Attending Provider Active Start: October 18, 2024 End: October 18, 2024 Imani Sullivan EXECUTIVE CASINO HOST, EXECUTIVE CASINO HOST-C Referring Provider Active Start: October 18, 2024 [...] 2024 End: November 13, 2024 Imani Sullivan EXECUTIVE CASINO HOST, EXECUTIVE CASINO HOST-C Attending Provider Active Start: November 13, 2024 [...] 2024 End: September 04, 2024 Imani Sullivan EXECUTIVE CASINO HOST, EXECUTIVE CASINO HOST-C Attending Provider Active Start: September 04, 2024 End: September 04, 2024 Team Status: Inactive Member Role/Relationship Status Dates No Primary Care Physician Primary Care Provider Active Start: October 02, 2024 End: October 02, 2024 No Primary Care Physician Referring Provider Active Start: October 02, 2024 End: October 02, 2024 Imani Sullivan EXECUTIVE CASINO HOST, EXECUTIVE CASINO HOST-C Attending Provider Active Start: October 02, 2024 [...] 2024 End: October 18, 2024 Imani Sullivan EXECUTIVE CASINO HOST, EXECUTIVE CASINO HOST-C Attending Provider Active Start: October 18, 2024 End: October 18, 2024 Team Status: Inactive Member Role/Relationship Status Dates Neda [place] PA, PA-C Primary Care Provider Active Start: October 18, 2024 End: October 18, 2024 Imani Sullivan EXECUTIVE CASINO HOST, EXECUTIVE CASINO HOST-C Attending Provider Active Start: October 18, 2024 End: October 18, 2024 Imani Sullivan EXECUTIVE CASINO HOST, EXECUTIVE CASINO HOST-C Referring Provider Active Start: October 18, 2024 End: October 18, 2024 Team Status: Active Member Role/Relationship Status Dates Neda Keith PA, PA-C Primary Care Provider Active Start: October 18, 2024 End: October 18, 2024 Dr. Manolo Merritt MD Attending Provider Active Start: October 18, 2024 End: October 18, 2024 Imani Sullivan EXECUTIVE CASINO HOST, EXECUTIVE CASINO HOST-C Referring Provider Active Start: October 18, 2024 [...] 2024 End: November 13, 2024 Imani Sullivan EXECUTIVE CASINO HOST, EXECUTIVE CASINO HOST-C Attending Provider Active Start: November 13, 2024 End: November 13, 2024 Neda Keith PA, PA-C Primary Care Provider Active Start: November 13, 2024 End: November 13, 2024 Team Status: Inactive Member Role/Relationship Status Dates Neda [place] PA, PA-C Primary Care Provider Active Start: November 27, 2024 End: November 27, 2024 Neda [place] PA, PA-C Referring Provider Active Start: November [...] 11, 2024 End: December 11, 2024 Neda [place] PA, PA-C Referring Provider Active Start: December 11, 2024 End: December 11, 2024 Imani Sullivan EXECUTIVE CASINO HOST, EXECUTIVE CASINO HOST-C Attending Provider Active Start: December 11, 2024 End: December 11, 2024 Team Status: Inactive Member Role/Relationship Status Dates Neda [place] PA, PA-C Primary Care Provider Active Start: [...] 2024 End: October 02, 2024 Imani Sullivan EXECUTIVE CASINO HOST, EXECUTIVE CASINO HOST-C Attending Provider Active Start: October 02, 2024 [...] 2024 End: October 18, 2024 Imani Sullivan EXECUTIVE CASINO HOST, EXECUTIVE CASINO HOST-C Attending Provider Active Start: October 18, 2024 End: October 18, 2024 Team Status: Inactive Member Role/Relationship Status Dates Neda Keith PA, PA-C Primary Care Provider Active Start: October 18, 2024 End: October 18, 2024 Imani Sullivan EXECUTIVE CASINO HOST, EXECUTIVE CASINO HOST-C Attending Provider Active Start: October 18, 2024 End: October 18, 2024 Imani Sullivan EXECUTIVE CASINO HOST, EXECUTIVE CASINO HOST-C Referring Provider Active Start: October 18, 2024 End: October 18, 2024 Team Status: Active Member Role/Relationship Status Dates Neda Keith PA, PA-C Primary Care Provider Active Start: October 18, 2024 End: October 18, 2024 Dr. Manolo Merritt MD Attending Provider Active Start: October 18, 2024 End: October 18, 2024 Imani Sullivan EXECUTIVE CASINO HOST, EXECUTIVE CASINO HOST-C Referring Provider Active Start: October 18, 2024 [...] 2024 End: November 13, 2024 Imani Sullivan EXECUTIVE CASINO HOST, EXECUTIVE CASINO HOST-C Attending Provider Active Start: November 13, 2024 [...] 27, 2024 End: November 27, 2024 Dr. yLnsey Ambrocio , DO Attending Provider Activ e [...] 2024 End: December 11, 2024 Imani Sullivan EXECUTIVE CASINO HOST, EXECUTIVE CASINO HOST-C Attending Provider Active Start: December 11, 2024 [...] or prosecute any alcohol or drug abuse patient.[facility] Reason for Visit (unrecogniz ed section and content) Reason Comments Comprehensive Eye Exam INFORMATION SOURCE (unrecogn ized section and content) DATE CREATED AUTHOR 02/16/2023 [facility] DATE CREATED AUTHOR AUTHOR'S ORGANIZ ATION 07/01/2023 [facility] DATE CREATED AUTHOR AUTHOR'S ORGANIZ ATION 02/16/2024 [facility] DATE CREATED AUTHOR AUTHOR'S ORGANIZ ATION 01/05/2025 [facility] DATE CREATED AUTHOR AUTHOR'S ORGANIZ ATION 01/11/2025 [facility] FOR RECORDS PERTAINING TO PATIENTS [...] BE BASED ON THE PRIMARY CLINICAL RECORDS. [employer] [facility]. provides no warranty or guarantee of the accuracy or completeness of information in this document.
[2025-01-17] MEDS: Lactated Ringers 1,000 ML 100 ML IV (06:05)
[2025-01-17] MEDS: Oxytocin 15 Units/NS 250ml 15 UNITS/250 ML IV.SOLN 83 UNITS IV (06:06)
--- NOTE | 2025-01-17 06:24 | PLAC_PTH ---
PATIENT: GRANT RUVALCABA LOC: [facility] U#:[id number] AGE/SX: 24/F ROOM: WP004 RE01/17/[address]: Sharri Begum CNM : 2000 BED: 1 DIS: 01/19/2025 SPEC #: [id number] RECD: 01/17/25 07:19 STATUS: ALYSSA REQ #: [id number] RODRIGO: 01/17/25 06:[address]: Sharri Begum DEPT: SURGICAL PATHOLOGY RECD BY: Matthew Larose ENTERED: 01/17/25 09:48 SP TYPE: PLACENTA OTHR DR: Dr. Lynsey [facility]rocio [facility] T[facility]: A - Placenta, NOS Procedures: Surgery Specimen Level V HEADER OPERATION: Primary section PRE-OP DIAGNOSIS: Abruption TISSUE SUBMITTED: A- Placenta MICROSCOPIC DIAGNOSIS A. Placenta, gestational age of 37 weeks / 1 day, section: * Marginally inserted membranes without active inflammation * Eccentrically inserted and trivascular umbilical cord without active inflammation * Mature (third trimester) placenta consistent with the stated gestational age and without active inflammation MICROSCOPIC DESCRIPTION Slides are reviewed. GROSS DESCRIPTION A. Received in formalin and labeled with the patient's name and date of is a 616 g, 17.7 x 17.0 x 3.8 cm ovoid placental disc. There is a 332.6 g of clotted blood within the container. The membranes are llanes-pink and translucent with patchy opacity and loosely adherent blood clot, inserting marginally. The attached, trivascular and hypocoiled umbilical cord measures 31.5 in length X 1.3 in diameter and inserts eccentrically, 2.9 cm from the disc edge. The surface is purple-blue with engorged, arborizing vasculature. The maternal surface is dark red-brown with a focally torn and frayed appearance and patchy fibrin (approximately 10%); when reapproximated, the maternal surface appears near complete. Sectioning reveals dark red, spongy and congested parenchyma with focal fibrin (<5%). Bin Worker sections are submitted as follows: A1: Membrane rollA2: Umbilical cordA3: PlacentaA4: Placenta SC 01/18/2025 CPT:40455
[2025-01-17] MEDS: Ketorolac 30 MG/ML Syringe IV ×3 (06:42→18:39)
[2025-01-17] MEDS: 0.9% Saline Lock 10 ML Syringe IV ×3 (06:42→18:40)
[2025-01-17 07:19] LABS: Pathology Specimen OB SEE PATHOLOGY REPORT
[2025-01-17 07:48] LABS: Hematocrit 31.6 % (37-47); Hemoglobin 10.9 g/dL (12.0-15.0); Immature Granulocytes Count 0.090 X10^3/uL (0.0-0.0); Mean Corp Hgb Conc 34.5 g/dL (32-36); Mean Corpuscular Volume 96.0 fL (81-99); Mean Platelet Vol. 12.5 fl (6.2-12.0); NRBC Flagged by Analyzer 0 % (0-5); Platelet Count 211 K/mm3 (150-450); RBC Distribution Width CV 13.8 % (11.6-14.6); RBC Distribution Width SD 47.7 fl (35.1-43.9); Red Blood Count 3.29 M/mm3 (4.2-5.4); White Blood Count 18.2 K/mm3 (4.4-11.0)
--- NOTE | 2025-01-17 08:48 | EX.PCM.OBRPT ---
Assessment & Plan (1) Placental abruption: (2) SGA (small for gestational age), , affecting care of mother, antepartum: (3) Trauma during : (4) Headache in : QUALIFIERS: Trimester: second trimester Qualified Code(s): O26.892 - Other specified related conditions, second trimester; R51.9 - Headache, unspecified COMMENT: improved (5) SOB (shortness of breath): COMMENT: improved (6) Obesity affecting : QUALIFIERS: Trimester: second trimester Obesity type affecting : unspecified obesity Qualified Code(s): O99.212 - Obesity complicating , second trimester COMMENT: BMI 30.3; HgBA1C w/NOB (7) Supervision of high-risk : QUALIFIERS: Trimester: third trimester Qualified Code(s): O09.93 - Supervision of high risk , unspecified, third trimester COMMENT: PRR, , GEORGI 02/06/25,girl Fatimah PC: Chad, : Killian (8) Anxiety: (9) 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al: COMMENT: +02/2022. 12/2022 neg pap and HPV; 2023: neg pap and HPV (10) : QUALIFIERS: Weeks of gestation: 37 weeks Qualified Code(s): Z3A.37 - 37 weeks gestation of COMMENT: GBS neg, (Carrier testing done in prior ), baby low risk, gender female (11) Depression: QUALIFIERS: Depression Type: unspecified Qualified Code(s): F32.A - Depression, unspecified COMMENT: Zoloft/stable Maternal Data Information GEORGI Calculator Estimated Delivery Date Method Current WG Current Estimate 02/06/25 LMP (Certain) 37w 1d Other Estimates 02/05/25 Ultrasound #1 37w 2d Final GEORGI: 03/09/25 Final GEORGI Source: LMP Gestational age: 37 weeks 1 day [place] Doctor Who Attended Delivery: Cady Olsen Operative Report (OB) Details Procedure Type: low transverse Date of Procedure: 01/17/25 Procedure Start Time: 04:38 Procedure Stop Time: 05:16 Pre-Operative Diagnosis: Nonreassuring Status and Other (placental abruption ) Other Pre-Operative diagnosis: none Post-Operative Diagnosis: Same as Pre-operative diagnosis Classification: RADHA Type of Anesthesia: Epidural Antibiotic Given: Ancef 2 grams IV x1 and Zithromax 500 mg/5 mL X1 Drain: Mendez to straight drain Estimated Blood Loss: 1300cc Findings Description of surgery: Preprocedure: The patient was in the operating room when I presented to labor and delivery after an ELLEN was declared by the charge nurse. Per the nurses report the patient presented to labor and delivery at 37 weeks and 1 day with painful contractions no leaking fluid vaginal bleeding or decreased movement. She was immediately placed on the monitor and the heart rate was in the 70s cervix was found to be 4 cm dilated and she was brought to the operating room. Upon arrival it was noted that the tracing was in the 130s with moderate variability. Patient was examined by myself and found to be 4 cm dilated 60% effaced -2 station membranes intact her abdominal exam was found to be diffusely tender. The patient was not on the tocometer at that time tocometer was applied and she was noted to have contractions every 30 seconds to a minute. Fluid boluses and terbutaline were given . There were 2 late decelerations followed by moderate variability without decelerations. The heart rate varied between 130s and 140s. The decision was made to wait for stat labs to come back and to allow her to have an epidural in the operating room with close observation. Once the labs are back and the epidural was placed membranes were ruptured and port wine blood noted upon rupture. No meconium fluid was appreciated however the decision was made to proceed with a emergent section due to to suspected abruption. Porcedure: The patient was prepped and draped in the normal sterile fashion and was placed in a dorsal supine position with a leftward tilt. Pfannenstiel skin incision was made with a scalpel and carried through to the underlying layers. The fascia was nicked in the midline and extended laterally using Priest scissors. The rectus muscles were in the midline. Peritoneum was entered sharply. Port wine blood was identified in the abdomen before uterine incision. This was suction irrigated out and the uterus was identified and a bladder blade was inserted into the abdomen. A low transverse incision was made with a scalpel and extended laterally manually. The placenta was noted to be anterior and delivering through the uterine incision spontaneously. The 's head was found and grasped with the help of my assistant professor of theater and fundal pressure the infant was delivered through the uterine incision without difficulty. The mouth and nares were bulb suctioned. After a 30 second delay the cord was clamped and cut. The infant was handed off to the awaiting correspondence clerk for assessment. Placenta was delivered manually without difficulty and noted to have at least a 30% abruption. The uterus was exteriorized and cleared of all clots and debris. The myometrium of the uterus was noted to be a dark purple color, also known as a Couvelaire uterus due to blood from the severe placental abruption that extravasates into the uterine muscle. The blood throughout the abdomen was likely from blood from the uterus that was escaping through the fallopian tubes as the fallopian tubes also appeared edematous. Incision was closed with an 0 Vicryl suture in a running locked fashion. Second layer of 1-0 monocryl suture was used in imbricating manner to create excellent closure and hemostasis. The closure the patient was given Hemabate and Methergine as well as 2 bags of Pitocin. TXA was ordered as well. A thorough exam of the abdomen was completed to ensure there was no bleeding from the bowel or liver. Excellent hemostasis was noted and the uterus was returned to the abdomen. The peritoneum was closed in a pursestring pattern using a 3-0 Vicryl suture. This muscle was reapproximated with a 3-0 Vicryl. The fascia was closed with a stratafix suture. Subcutaneous tissue layer was closed using a plain gut suture. The skin was closed with a 4-0 Monocryl subcuticular stitch. The skin was also sealed with surgical glue. The patient tolerated the procedure well sponge lap and needle counts were correct at each tissue closure plane and the patient is now being brought to the recovery room in stable condition Surgical findings: Placental abruption, Couvelaire uterus, viable female scores 1, 3, 7. Fatimah Presentation: Vertex Amniotic Membrane Rupture Type: Artificial Amniotic Fluid Description: Bloody Placental Delivery Description: Manual Removal Placenta Disposition: [facility] Specimen collected: No Cord Vessel Description: 3 Vessels Cord Entanglement: None Cord Gases: ABG and VBG A gender: Female (1 minute): 1 (5 minute): 3 Delayed Cord Clamping: No Truck Despatcher community life director: Yes Merchandise Flow Team Leader: Ramona Durand Tasks completed by retail administrative assistant: Opening and Retracting Additional assistant professor of theater?: No Complications Complications: No Admit VTE Documentation VTE Mechan Device Prophylaxis: SCD's VTE Pharm Prophylaxis Ordered: Yes Multi Select Codes Urinary/Genital Urinary/Genital CPT Codes: 82767 delivery+PP Care([facility])
[2025-01-17] MEDS: Senna/Docusate Sodium 1 Tablet PO (11:54)
--- NOTE | 2025-01-17 13:53 | NURSING ---
epidural cath removed, blue tip intact
--- NOTE | 2025-01-17 21:25 | PCM.DC ---
Discharge Instructions DC O2, CPAP, BIPAP needs Home O2 Discharge instructions: No Dressing / Incision Discharge Activity: May Not Drive (for 2 weeks or while taking narcotic pain medications.), May Shower and May Take a Tub Bath (in 7 days.) May resume sexual activity in: 4-6 weeks Weight Bearing Status: Full weight bearing Lifting Restrictions: 20 pounds Dressing / Incision Call your doctor if your incision/area has: Continuous Slow Oozing, Sudden Increased Bleeding, Increased Pain/ Swelling, Increased Redness and Foul Smelling Discharge Call your doctor if you observe: Fever of 101 or Higher and Using more than 1 pad per hour Suture Line Care: Avoid Pulling/Pushing and Avoid Pinching/Bending Cleanse incision/area with: Soap & Water and Keep Dressing Clean & Dry Follow Up Care Please Follow Up With: Lynsey Ambrocio DO When: Call [phone] to make an appointment for an incision check in 1-2 weeks. Test Results: Test results from this visit will be discussed in further detail at your follow-up appointment, if applicable. Discharge Plan Admission Admit Date/Time: 01/17/25 03:57 Primary Reason for Your Visit: cearean section Attending Provider: Sharri Begum Primary Care Provider: Neda Keith Discharge Orders/Prescriptions Prescriptions: New ibuprofen 800 mg tablet 800 mg PO Q8H PRN (Reason: pain) Qty: 30 0RF oxycodone-acetaminophen [Percocet] 5-325 mg tablet 1 tab PO Q4H PRN (Reason: pain) 7 Days Qty: 20 0RF Continued sertraline [Zoloft] 50 mg tablet 50 mg PO DAILY Qty: 90 4RF No Action ferrous sulfate 140 mg (45 mg iron) tablet extended release 140 mg PO DAILY cholecalciferol (vitamin D3) 25 mcg (1,000 unit) capsule 25 mcg PO QDAY DHA 200 mg capsule PO Referrals / Follow Up: Neda Keith PA-C [Primary Care Provider] - Disposition Disposition (needs filled in before D/C Order can be placed): Home, Self Care
[2025-01-18] VITALS (8 sets, daily range): BP systolic 85–112; BP diastolic 46–75; PULSE 92–110; RESP 14–16; TEMP 36.1–36.7; O2SAT 98–100
[2025-01-18] MEDS: Ketorolac 30 MG/ML Syringe IV (00:18)
[2025-01-18 04:59] LABS: Hematocrit 23.0 % (37-47); Hemoglobin 7.7 g/dL (12.0-15.0); Mean Corp Hgb Conc 33.5 g/dL (32-36); Mean Corpuscular Volume 95.8 fL (81-99); Mean Platelet Vol. 11.3 fl (6.2-12.0); Platelet Count 196 K/mm3 (150-450); RBC Distribution Width CV 13.8 % (11.6-14.6); RBC Distribution Width SD 48.1 fl (35.1-43.9); Red Blood Count 2.40 M/mm3 (4.2-5.4); White Blood Count 15.8 K/mm3 (4.4-11.0)
[2025-01-18] MEDS: 0.9% Saline Lock 10 ML Syringe IV ×2 (06:48→07:31)
[2025-01-18] MEDS: Iron Sucrose Complex 200 MG in 0.9% Normal Saline (100mL Bag) 100 ML 220 MG IV (06:48)
--- NOTE | 2025-01-18 07:59 | PN.OBGYN_ITS ---
Subjective Subjective Patient doing well without complaints. Tolerating PO. Ambulating and voiding without difficulty. Feeding well. Denies chest pain, shortness of breath, calf pain/swelling, fevers, chills, lightheadedness. Objective Data Objective Data Vital Signs: Vital Signs Temp Pulse Resp BP Pulse Ox O2 Del Method 97 F L 92 16 105/56 L 100 Room Air 01/18/25 04:38 01/18/25 04:38 01/18/25 04:38 01/18/25 04:38 01/18/25 04:38 01/18/25 04:38 Oxygen Delivery Method Room Air Weight: 210 lb Body Mass Index (BMI) 39.6 Intake & Output: Intake and Output for Last 24 Hours 01/16/25 01/17/25 01/18/25 23:59 23:59 23:59 Intake Total 1500.00 / 1500.00 110 / 110 Output Total 2950 / 2950 900 / 900 Balance -1450.00 / -1450 -790 / -790 Lab / Micro Data Attestation: I reviewed the patient's lab results. 01/18/25 04:50 Labs: Laboratory Results - last 24 hr 01/18/25 04:50: WBC 15.8 H, RBC 2.40 L, Hgb 7.7 L, Hct 23.0 L, MCV 95.8, MCH 32.1 H, MCHC 33.5, RDW Std Deviation 48.1 H, RDW Coeff of Richard 13.8, Plt Count 196, MPV 11.3 ROS Constitutional Constitutional: Reports systems reviewed and no addt'l complaints, except as documented; Denies anorexia or headache(s) Cardiovascular Cardiovascular: Reports systems reviewed and no addt'l complaints, except as documented; Denies dizziness, dyspnea, nausea or tachypnea Respiratory/Chest Respiratory/Chest: Reports systems reviewed and no addt'l complaints, except as documented; Denies cough, dyspnea, shortness of breath at rest or tachypnea Gastrointestinal Gastrointestinal: Reports systems reviewed and no addt'l complaints, except as documented; Denies abdominal pain, constipation or nausea Genitourinary Genitourinary: Reports systems reviewed and no addt'l complaints, except as documented; Denies burning urination, difficulty urinating, dysuria, urinary frequency or urinary incontinence Musculoskeletal Musculoskeletal: Reports systems reviewed and no addt'l complaints, except as documented Integumentary Integumentary: Reports systems reviewed and no addt'l complaints, except as documented Neurologic Neurologic: Reports systems reviewed and no addt'l complaints, except as documented; Denies abnormal speech, dizziness or headache(s) Psychiatric Psychiatric: Reports systems reviewed and no addt'l complaints, except as documented Endocrine Endocrinology: Reports systems reviewed and no addt'l complaints, except as documented Hematologic/Lymphatic Hematologic/Lymphatic: Reports systems reviewed and no addt'l complaints, except as documented Physical Exam Const alert, oriented x3 and no apparent distress Neck full ROM Resp normal respiratory effort, normal air movement and no retractions Effort and Inspection: able to speak in complete sentences and symmetric chest movement GI soft to palpation Inspection: incision intact Bladder / Kidney Exam: bladder normal to palpation Uterus Palpation: uterus fundus firm Extremity normal to inspection and full ROM Psych mental status grossly normal, thought process normal and cooperative Assessment & Plan (1) Status post section: PLAN: s/p LTCS PPD # 1 1. routine post care 2. breast feeding- support given 3. rh positive 4. rubella immune (2) Placental abruption: (3) SGA (small for gestational age), , affecting care of mother, antepartum: (4) Trauma during : (5) Headache in : QUALIFIERS: Trimester: second trimester Qualified Code(s): O 26.892 - Other specified related conditions, second trimester; R51.9 - Headache, unspecified COMMENT: improved (6) SOB (shortness of breath): COMMENT: improved (7) Obesity affecting : QUALIFIERS: Trimester: second trimester Obesity type affecting : unspecified obesity Qualified Code(s): O99.212 - Obesity complicating , second trimester COMMENT: BMI 30.3; HgBA1C w/NOB (8) Supervision of high-risk : QUALIFIERS: Trimester: third trimester Qualified Code(s): O09.93 - Supervision of high risk , unspecified, third trimester COMMENT: PRR, , GEORGI 02/06/25,girl Fatimah PC: Chad, : Killian (9) Anxiety: (10) 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al: COMMENT: +02/2022. 12/2022 neg pap and HPV; 2023: neg pap and HPV (11) : QUALIFIERS: Weeks of gestation: 37 weeks Qualified Code(s): Z 3A.37 - 37 weeks gestation of COMMENT: GBS neg, (Carrier testing done in prior ), baby low risk, gender female (12) Depression: QUALIFIERS: Depression Type: unspecified Qualified Code(s): F32.A - Depression, unspecified COMMENT: Zoloft/stable Charges/Coding Multi Select Codes Urinary/Genital Urinary/Genital CPT Codes: No Charge
[2025-01-18] MEDS: LACTATED RINGERS 500 ML 999 ML IV (09:38)
[2025-01-18] MEDS: Senna/Docusate Sodium 1 Tablet PO (11:51)
[2025-01-18 15:11] LABS: Hematocrit 20.2 % (37-47); Hemoglobin 6.8 g/dL (12.0-15.0); Immature Granulocytes Count 0.060 X10^3/uL (0.0-0.0); Mean Corp Hgb Conc 33.7 g/dL (32-36); Mean Corpuscular Volume 97.1 fL (81-99); Mean Platelet Vol. 11.4 fl (6.2-12.0); NRBC Flagged by Analyzer 0 % (0-5); Platelet Count 184 K/mm3 (150-450); RBC Distribution Width CV 14.3 % (11.6-14.6); RBC Distribution Width SD 49.3 fl (35.1-43.9); Red Blood Count 2.08 M/mm3 (4.2-5.4); White Blood Count 11.0 K/mm3 (4.4-11.0)
[2025-01-19 01:25] VITALS: BP 126/74; PULSE 103; RESP 14; TEMP 36.9; O2SAT 100
[2025-01-19 05:45] LABS: Hematocrit 21.5 % (37-47); Hemoglobin 7.2 g/dL (12.0-15.0); Mean Corp Hgb Conc 33.5 g/dL (32-36); Mean Corpuscular Volume 98.2 fL (81-99); Mean Platelet Vol. 11.0 fl (6.2-12.0); Platelet Count 185 K/mm3 (150-450); RBC Distribution Width CV 14.3 % (11.6-14.6); RBC Distribution Width SD 49.8 fl (35.1-43.9); Red Blood Count 2.19 M/mm3 (4.2-5.4); White Blood Count 11.9 K/mm3 (4.4-11.0)
[2025-01-19 07:44] VITALS: BP 111/71; PULSE 103; RESP 16; TEMP 36.6; O2SAT 100
--- NOTE | 2025-01-19 09:14 | PN.OBGYN_ITS ---
Subjective Subjective Patient doing well without complaints. Tolerating PO. Ambulating and voiding without difficulty. Feeding well. Denies chest pain, shortness of breath, calf pain/swelling, fevers, chills, lightheadedness. Discussed options for blood transfusion and patient declines at this time. HBG is imporving and she is not symptomatic. Objective Data Objective Data Vital Signs: Vital Signs Temp Pulse Resp BP Pulse Ox O2 Del Method 97.8 F 103 H 16 111/71 100 Room Air 01/19/25 07:44 01/19/25 07:44 01/19/25 07:44 01/19/25 07:44 01/19/25 07:44 01/19/25 07:44 Oxygen Delivery Method Room Air Weight: 210 lb Body Mass Index (BMI) 39.6 Intake & Output: Intake and Output for Last 24 Hours 01/17/25 01/18/25 01/19/25 23:59 23:59 23:59 Intake Total 1500.00 / 1500.00 610 / 610 Output Total 2950 / 2950 2700 / 2700 Balance -1450.00 / -1450 -2090 / -2090 Lab / Micro Data Attestation: I reviewed the patient's lab results. 01/19/25 05:25 Labs: Laboratory Results - last 24 hr 01/18/25 14:36: WBC 11.0, RBC 2.08 L, Hgb 6.8 L, Hct 20.2 L, MCV 97.1, MCH 32.7 H, MCHC 33.7, RDW Std Deviation 49.3 H, RDW Coeff of Richard 14.3, Plt Count 184, MPV 11.4, Immature Gran % (Auto) 0.500, Neut % (Auto) 78.4 H, Lymph % (Auto) 12.7 L, Benton % (Auto) 7.5, Eos % (Auto) 0.8, Baso % (Auto) 0.1, Absolute Neuts (auto) 8.6 H, Absolute Lymphs (auto) 1.39, Nucleated RBC % 0 01/19/25 05:25: WBC 11.9 H, RBC 2.19 L, Hgb 7.2 L, Hct 21.5 L, MCV 98.2, MCH 32.9 H, MCHC 33.5, RDW Std Deviation 49.8 H, RDW Coeff of Richard 14.3, Plt Count 185, MPV 11.0 ROS Constitutional Constitutional: Reports systems reviewed and no addt'l complaints, except as documented; Denies anorexia or headache(s) Cardiovascular Cardiovascular: Reports systems reviewed and no addt'l complaints, except as documented; Denies dizziness, dyspnea, nausea or tachypnea Respiratory/Chest Respiratory/Chest: Reports systems reviewed and no addt'l complaints, except as documented; Denies cough, dyspnea, shortness of breath at rest or tachypnea Gastrointestinal Gastrointestinal: Reports systems reviewed and no addt'l complaints, except as documented; Denies abdominal pain, constipation or nausea Genitourinary Genitourinary: Reports systems reviewed and no addt'l complaints, except as documented; Denies burning urination, difficulty urinating, dysuria, urinary frequency or urinary incontinence Musculoskeletal Musculoskeletal: Reports systems reviewed and no addt'l complaints, except as documented Integumentary Integumentary: Reports systems reviewed and no addt'l complaints, except as documented Neurologic Neurologic: Reports systems reviewed and no addt'l complaints, except as documented; Denies abnormal speech, dizziness or headache(s) Psychiatric Psychiatric: Reports systems reviewed and no addt'l complaints, except as documented Endocrine Endocrinology: Reports systems reviewed and no addt'l complaints, except as documented Hematologic/Lymphatic Hematologic/Lymphatic: Reports systems reviewed and no addt'l complaints, except as documented Physical Exam Const alert, oriented x3 and no apparent distress Neck full ROM Resp normal respiratory effort, normal air movement and no retractions Effort and Inspection: able to speak in complete sentences and symmetric chest movement GI soft to palpation Inspection: incision intact Bladder / Kidney Exam: bladder normal to palpation Uterus Palpation: uterus fundus firm Extremity normal to inspection and full ROM Psych mental status grossly normal, thought process normal and cooperative Assessment & Plan (1) Status post section: PLAN: s/p LTCS PPD # 2 1. routine post care 2. breast feeding- support given 3. rh positive 4. rubella immune 5. Discharge home (2) Placental abruption: (3) SGA (small for gestational age), , affecting care of mother, antepartum: (4) Trauma during : (5) Headache in : QUALIFIERS: Trimester: second trimester Qualified Code(s): O 26.892 - Other specified related conditions, second trimester; R51.9 - Headache, unspecified COMMENT: improved (6) SOB (shortness of breath): COMMENT: improved (7) Obesity affecting : QUALIFIERS: Trimester: second trimester Obesity type affecting : unspecified obesity Qualified Code(s): O99.212 - Obesity complicating , second trimester COMMENT: BMI 30.3; HgBA1C w/NOB (8) Supervision of high-risk : QUALIFIERS: Trimester: third trimester Qualified Code(s): O09.93 - Supervision of high risk , unspecified, third trimester COMMENT: PRR, , GEORGI 02/06/25,girl Fatmiah PC: Chad, : Killian (9) Anxiety: (10) 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al: COMMENT: +02/2022. 12/2022 neg pap and HPV; 2023: neg pap and HPV (11) : QUALIFIERS: Weeks of gestation: 37 weeks Qualified Code(s): Z 3A.37 - 37 weeks gestation of COMMENT: GBS neg, (Carrier testing done in prior ), baby low risk, gender female (12) Depression: QUALIFIERS: Depression Type: unspecified Qualified Code(s): F32.A - Depression, unspecified COMMENT: Zoloft/stable Charges/Coding Multi Select Codes Urinary/Genital Urinary/Genital CPT Codes: No Charge
--- NOTE | 2025-01-19 13:55 | CASEMGMT ---
Social Work Date of referral: 01/19/25 Reason for referral: Follow up from PHQ-9 Referred by: nurse Mother of baby (MOB) and father of baby (FOB) provided consent to social work visit. MOB had just gotten out of the shower, was dressed and was packing up as MOB and baby are getting discharged today. FOB was sitting in a chair holding . MOB presented with a bright affect and the FOB appeared to be attached and bonded to as the FOB was observed to be very gentle and attentive with . Community Health Nurse Supervisor told the MOB she was just popping in to see how she is feeling and to see if any of her depressive symptoms have worsened which the MOB stated they have not. MOB stated she is feeling great and is excited to be going home. MB and FOB denied the need for any additional supports at this time. Lynsey Abdi, [employer], CUSTOM BOW MAKER
[2025-01-19 14:08] VITALS: BP 135/72; PULSE 109; RESP 18; TEMP 36.3; O2SAT 99
--- NOTE | 2025-01-22 10:58 | CASEMGMT ---
Social Work Assessment Labor and Delivery Unit Patient Address: [address] [place] [address] [address] [facility] [address] Phone number: [phone] Date of Referral: 01/17/25 Time of Referral:? 912 Referred By: Dr. Pritchard Date of Intervention: ??01/18/25 Time of Intervention:? 1429 Reason for Referral:? depression Sw completed chart review and acknowledges social work consult due to history of depression. Sw presented to bedside and introduced self to mother of baby (MOB- Douglas) and father of baby (FOB- Killian). Sw explained reason for sw involvement and completed psychosocial assessment. History obtained from: medical records, MOB and FOB Household composition: Currently residing in the family home is DANIA, SHAW, their older son, Chad (2). [place] baby to be included in household when ready for discharge. DANIA denies any housing concerns, stating that it is safe and secure. Patient's parent/guardian status:? ?DANIA states that she and FOB met each other when they used to work together and have now been together for 4 years. [place] baby is second baby for parents together. No concerns reported of domestic violence or intimate partner violence. Medical History: ?DANIA is 24 year old female who is 2, para 1- now 2 following labor and delivery of . DANIA recieved routine care during with [facility] beginning in first trimester. DANIA presented to hospital and required following [facility]. Baby was born on 01/17/25 at 37 weeks gestation. Baby's name is Fatimah Lobo, and was born weighing 7lb 2oz with apgars of 1, 3, 6 and 7. DANIA is bottle feeding and will be followed by [facility] for pediatric[facility]. Educational Status:? Both parents graduated from high school and have some college education. No problems with reading, learning or comprehension. Financial Status: Neither parent is employed at this time. Infant Supplies:?? All necessary baby supplies obtained at this time, including: safe sleep space, clothes, diapers and wipes. Childcare/Caregiver(s):? DANIA states that she will be the primary caregiver to baby along with FOB. Transportation:?Both parents have their drivers license along with reliable means of transportation. No barriers. ? Programs/Agencies Involved: ?Family is connected to resources provided through [facility], including: medicaid insurance ([employer]), [employer] benefits, and WIC. ?? Children Services/Legal Issues:??? No prior involvement with children services, no issues or concerns warranting referral to be made at this time. Behavioral Health Issues: ??Mental Health History:??SHAW states that he has been diagnosed with ADHD and anxiety. He is prescribed Effexor. MOB states that she has been diagnosed with anxiety, depression, and did experience depression after the of her first baby. MOB states that she is prescribed sertraline by her PCP. MOB states that she felt well during her . MOB states that she is connected to mental health resources provided by [facility]. MOB states that she and SHAW both attend counseling there. ? Substance Use History:?Parents deny substance use prior to and during . ? Family History: Parents deny family history of substance use or significant mental health history. ??Drug Screens: ??No drug screens observed while completing chart review. Family/Social Stressors:?MOB denies any issues, concerns or stressors. Support Systems: DANIA states that SHAW is her biggest support, along with their families. Depression/Shaken Baby/Safe Sleeping:? Sw educated parents on signs and symptoms of baby blues and depression and anxiety. DANIA states that when she had following her first delivery, she felt overwhelmed, sad and disengaged. DANIA reports that during her she felt okay and reports that her mental health felt managed. DANIA states that now that baby has been born she does feel anxious and slightly down. DANIA completed [place] Depression Scale and her score was a 5. Scores mostly indicating anxiety. DANIA states that her labor did not go as she anticipated, and as a result she has been extremely tired and working on accepting her is not looking how she envisioned that it would look. Sw attempted to process this with MOB. Sw empathized with DANIA, and stated that this is something that will impact her mental health and something that she should discuss with her mental health therapist. DANIA expressed understanding. DANIA states that she does not intend on discontinuing her medication. MOB states that she feels comfortable discussing how she is feeling with FOB and other natural supports that she sees regularly. FOB states that if MOB were to struggle he would be able to notice it and would know how to help her. Sw encouraged parents to utilize healthy and safe coping mechanisms, and reviewed with parents what they enjoy doing. Sw educated parents on shaken baby prevention, and ABCs of safe sleep, parents expressed understanding. ASSESSMENT: MOB and baby admitted following labor and delivery. MOB with mental health history positive for anxiety, depression and depression. DANIA is on medication prescribed through her primary care doctor and is also connected to mental health counseling. DANIA completed an [place] Depression Scale and her score was a 5. DANIA was welcoming of meeting with sw. DANIA was observed laying comfortably in bed, and stated that she had just woken up from a nap. Also present was FOB, DANIA's older son and her father in law. DANIA stated that it was okay to complete assessment with other visitors in the room. FOB engaged in portions of assessment, other times he was visiting with his father and not listening to conversation. DANIA states that she plans to discuss outcome of her labor with her mental health support person, as well as any mental health symptoms that she may experience. While talking with DANIA she would smile and laugh, but also talked in a low and slow voice. DANIA admits to feeling slightly sad and anxious, but also feeling bonded and loving towards . DANIA has obtained all necessary baby items for baby and has natural supports in place. ? PLAN:? No other services requested or indicated. MOB and baby to be discharged when medically ready. Parents were provided literature regarding: signs and symptoms of baby blues and mood and anxiety disorders, Help Me Grow, shaken baby prevention, ABCs of safe sleep and a list of county resources that are available for them should any needs present themselves. Salo Butler, [employer]CH[employer], [employer]MENT ENGINE MECHANIC
== END 2025-01-19 14:47 | disposition home or self-care (01) | DRG 540 ==
LOC: WP 04:53
PROVIDERS: Admitting Provider Obstetrics & Gynecology; PCP Family Medicine; Visit Provider Advanced Practice Midwife
DX: O45.8X3 Other premature separation of placenta, third trimester (principal); O36.5930 Maternal care for other known or suspected poor fetal growth, third trimester, not applicable or unspecified; F32.A Depression, unspecified; O99.214 Obesity complicating childbirth; F41.9 Anxiety disorder, unspecified; O99.344 Other mental disorders complicating childbirth; O76 Abnormality in fetal heart rate and rhythm complicating labor and delivery; Z37.0 Single live birth; Z3A.37 37 weeks gestation of pregnancy; Z79.899 Other long term (current) drug therapy
CPT/HCPCS: 36415; 59050; 85025; 85027; 85384; 85610; 85730; 86780; 86850; 86900; 86901; 88307; J1756; A4216; J2405